=== PATIENT | female | born 1960 | race Caucasian/White ===

== ENCOUNTER 2016-10-29 15:57 | Observation (INO) | payer SELFPAY ==
[2016-10-29 16:02] VITALS: BMI 39.4
[2016-10-29] MEDS ORDERED: Sodium Chloride 0.9% 500 ML IV STA (16:25)
[2016-10-29] MEDS ORDERED: Morphine 2 mg/ml ISec IVP STA ×2 (16:26→23:42)
--- NOTE | 2016-10-29 16:30 | ED PDOC ---
Arrival/HPI - General Historian: Patient - History of Present Illness Time/Duration: Other (3 days) Context: Home - General Chief Complaint: Back Pain Time Seen by Provider: 10/29/16 16:10 - History of Present Illness Narrative History of Present Illness (Text): 10/29/16 16:27 This 56 yo female with pmh htn, dm, presents to this ED c/o right upper back pain, that radiates to right lower back, and lower extremity, and radiates to right neck, and head x 3 days. Patient denies cp, sob, palpitation, diplopia, dysarthria, cms, dizziness, weakness, /GI incontinence, saddle anesthesia, urinary retention, urinary symptoms, hematuria, vaginal bleeding, vaginal discharge, paresthesias, or abnormal gait. (Wilmar Rubio) Past Medical History - Provider Review Nursing Documentation Reviewed: Yes - Infectious Disease Hx of Infectious Diseases: None - Cardiac Hx Cardiac Disorders: No Hx Hypertension: Yes - Pulmonary Hx Respiratory Disorders: No - Neurological Hx Neurological Disorder: No - HEENT Hx HEENT Disorder: No - Renal Hx Renal Disorder: No - Endocrine/Metabolic Hx Endocrine Disorders: No Hx Diabetes Mellitus Type 2: Yes - Hematological/Oncological Hx Blood Disorders: No - Integumentary Hx Dermatological Disorder: No - Musculoskeletal/Rheumatological Hx Musculoskeletal Disorders: No - Gastrointestinal Hx Gastrointestinal Disorders: Yes Hx Diverticulitis: Yes - Genitourinary/Gynecological Hx Genitourinary Disorders: No - Psychiatric Hx Psychophysiologic Disorder: No Hx Depression: No Hx Emotional Abuse: No Hx Physical Abuse: No Hx Substance Use: No - Surgical History Hx Hysterectomy: Yes (PARTIAL) - Anesthesia Hx Anesthesia: No - Suicidal Assessment Feels Threatened In Home Enviroment: No Family/Social History - Physician Review Nursing Documentation Reviewed: Yes Family/Social History: No Known Family HX Smoking Status: Never Smoked Hx Alcohol Use: No Hx Substance Use: No Allergies/Home Meds Allergies/Adverse Reactions: Allergies EGG Allergy (Verified 10/29/16 16:01) ANAPHYLAXIS Home Medications: Home Meds Medication Instructions Recorded Confirmed MetFORMIN [glucOPHAGE] 500 mg PO BID 10/29/16 10/29/16 Review of Systems - Review of Systems Constitutional: Normal. absent: Fatigue, Weight Change, Fevers Eyes: Normal ENT: Normal. absent: Sore Throat Respiratory: Normal. absent: SOB, Cough Cardiovascular: Normal. absent: Chest Pain, Palpitations, Edema, Calf Pain, Orthopnea, Syncope Gastrointestinal: Normal. absent: Abdominal Pain, Nausea, Vomiting Genitourinary Female: Normal. absent: Dysuria, Frequency, Hematuria, Vaginal Bleeding, Vaginal Discharge Musculoskeletal: Back Pain, Neck Pain, Myalgias Skin: Normal. absent: Rash, Pruritis, Skin Lesions Neurological: Headache. absent: Dizziness, Focal Weakness, Gait Changes, Speech Changes, Facial Droop, Disequilibrium Endocrine: Normal Hemo/Lymphatic: Normal Psychiatric: Normal Physical Exam Temperature: Afebrile Blood Pressure: Normal Pulse: Regular Respiratory Rate: Normal Appearance: Positive for: Well-Appearing, Non-Toxic, Comfortable Pain Distress: None Mental Status: Positive for: Alert and Oriented X 3 - Systems Exam Head: Present: Atraumatic, Normocephalic Pupils: Present: PERRL Extroacular Muscles: Present: EOMI. No: Entrapment Conjunctiva: Present: Normal Ears: Present: Normal, NORMAL TM, Normal Canal. No: Erythema, TM Bulging, Fluid , TM Perf Mouth: Present: Moist Mucous Membranes Pharnyx: Present: Normal. No: ERYTHEMA, EXUDATE, TONSILS ENLARGED Nose (External): Present: Atraumatic Nose (Internal): Present: Normal Inspection Neck: Present: Normal Range of Motion Respiratory/Chest: Present: Clear to Auscultation, Good Air Exchange, Tender to Palpation (See Back). No: Respiratory Distress, Accessory Muscle Use, Wheezes, Decreased Breath Sounds, Rales, Retracting, Rhonchi, Tachypneic Cardiovascular: Present: Regular Rate and Rhythm, Normal S1, S2. No: Murmurs Abdomen: Present: Normal Bowel Sounds. No: Tenderness, Distention, Peritoneal Signs, Rebound, Guarding Back: Present: Normal Inspection, Other (Mild tendernnes over right posterior upper back, lower back, and right sided neck on palpation. Pain is 100 % reproducible. Pain worsen with movement. No skin rash, swelling, or ecchymosis.). No: CVA Tenderness, Midline Tenderness, Paraspinal Tenderness, Pain with Leg Raise Upper Extremity: Present: Normal Inspection, Normal ROM, NORMAL PULSES, Neurovascularly Intact, Capillary Refill < 2s. No: Cyanosis, Edema Lower Extremity: Present: Normal Inspection, NORMAL PULSES, Normal ROM, Neurovascularly Intact, Capillary Refill < 2 s. No: Edema, CALF TENDERNESS, Cyanosis, Monae's Sign, Tenderness, Swelling, Erythema Neurological: Present: GCS=15, CN II-XII Intact, Speech Normal, Motor Func Grossly Intact, Normal Sensory Function, Normal Cerebellar Funct, Gait Normal Skin: Present: Warm, Dry, Normal Color. No: Rashes Psychiatric: Present: Alert, Oriented x 3 Vital Signs Temp Pulse Resp BP Pulse Ox 10/29/16 23:07 98.0 F 71 16 108/71 97 10/29/16 17:58 79 18 141/79 97 10/29/16 15:58 98.8 F 82 16 143/89 97 Medical Decision Making Re-evaluation Time: 23:48 Reassessment Condition: Re-examined, Improving,but remains with symptoms - Lab Interpretations I have reviewed the lab results: Yes Interpretation: No clinic. lab abnormalty ED Course and Treatment: I was available for consultation during PA evaluation. The chart was reviewed by me, and I agree with disposition. The documented history was done by the physician educational interpreter. The documented physical exam was done by the physician educational interpreter. The documented procedures were done by the physician educational interpreter. ( Daniel Oswald) 10/29/16 23:[address] Shante Rosas physician regarding intractable abdominal pain, and dilated common bile duct found on imaging. patient has a pmh htn, and dm. He agrees with plan for observation (Wilmar Rubio) - Lab Interpretations Lab Results: 10/29/16 17:20 10/29/16 17:20 Lab Results 10/29/16 21:00: Urine Color Yellow, Urine Appearance Clear, Urine pH 6.5, Ur Specific [place] <= 1.005, Urine Protein Negative, Urine Glucose (UA) Negative, Urine Ketones Negative, Urine Blood Negative, Urine Nitrate Negative, Urine Bilirubin Negative, Urine Urobilinogen 0.2, Ur Leukocyte Esterase Negative 10/29/16 17:20: Sodium 139, Potassium 3.7, Chloride 100, Carbon Dioxide 30, Anion Gap 13, BUN 10, Creatinine 0.8, Est GFR ( Amer) > 60, Est GFR (Non- Af Amer) > 60, Random Glucose 116 H, Calcium 9.3, Total Bilirubin 0.7, AST 35, ALT 41, Alkaline Phosphatase 87, Total Protein 8.1, Albumin 4.4, Globulin 3.7, Albumin/Globulin Ratio 1.2 10/29/16 17:20: WBC 7.1 D, RBC 4.37, Hgb 11.2 L, Hct 34.9 L, MCV 79.9 L, MCH 25.6, MCHC 32.1, RDW 15.2 H, Plt Count 223, MPV 9.5, Gran % 63.7, Lymph % (Auto ) 27.3, [place] % (Auto) 5.4, Eos % (Auto) 3.5, Baso % (Auto) 0.1, Gran # 4.50, Lymph # 1.9, [place] # 0.4, Eos # 0.3, Baso # 0.01 - RAD Interpretation Narrative RAD Interpretations (Text): 10/29/16 18:09 Accession No. : [id number] Patient Name / ID : AMBER CROSS / [id number] Exam Date : 10/29/2016 17:03:12 ( Approved ) Study Comment : Sex / Age : F / 56Y Creator : Jay Santiago MD Dictator : Jay Santiago MD Tar Leveler : [employer] Administrator : Jay Santiago MD Approver2 : Report Date : 10/29/2016 17:41:59 My Comment : HISTORY: Unspecified pain. Semi erect study 17:02. COMPARISON: 08/05/2015. FINDINGS: LUNGS: No active pulmonary disease. PLEURA: No significant pleural effusion identified, no pneumothorax apparent. CARDIOVASCULAR: No radiographic findings to suggest acute or significant cardiovascular disease. OSSEOUS STRUCTURES: No significant abnormalities. VISUALIZED UPPER ABDOMEN: Normal. OTHER FINDINGS: None. IMPRESSION: No active disease. No significant interval change compared to the prior examination(s). 10/29/16 20:44 [facility] FINDINGS: Artifacts: Motion artifact degrades image quality. Heart, aorta and Pulmonary arteries: Heart size is accentuated by low volumes. There is no pericardial effusion. There is no aneurysm or dissection. There is perfusion of the 3 arch vessels. There are no central pulmonary. Allowing for patient motion, no peripheral emboli are identified. Lungs and pleural spaces: Trachea and main bronchi are patent. There is pleural thickening at the lung apices. There is a 2.5 mm peripheral right upper lobe nodule. There is dependent atelectasis at the lung bases. There is minimal scarring at the lung bases. There is no lobar or segmental consolidation. There is symmetric groundglass opacities. There are no effusions Mediastinum: Esophagus is unremarkable. There is a small hiatal hernia. There are no pathologically enlarged mediastinal or hilar nodes. Thyroid: Thyroid is only partially imaged. Bones/joints: There are degenerative changes in the osseus structures. Soft tissues: unremarkable Upper abdomen: Refer to following report for abdominal findings IMPRESSION: No aneurysm, dissection or pulmonary embolus; indeterminate 2.5 mm right upper lobe nodule Footer: As per Fleischner Society guidelines for follow-up and management of pulmonary nodules: For patients at low risk (minimal or absent history of smoking and of other known risk factors), no follow-up needed. For patient at high risk (history of smoking or of other known risk factors), recommend follow-up chest CT at 12 months; if unchanged, no further follow-up needed. EXAM: CT Abdomen and Pelvis With Intravenous Contrast FINDINGS: Lower thorax: Refer to prior report for chest findings ABDOMEN: Liver: There is fatty infiltration of the liver. Gallbladder and bile ducts: Gallbladder is partially distended. There may be small stones. There is prominence of the common duct. Pancreas: unremarkable Spleen: unremarkable Adrenals: unremarkable Kidneys and ureters: unremarkable Stomach and bowel: Stomach is partially distended. Rotation is normal. Small bowel is mildly distended with fluid and air. There is no obstruction. Terminal ileum is unremarkable. Appendix is unremarkable. There is moderate stool in the colon. There is scattered diverticulosis. Appendix: See stomach and bowel PELVIS: Bladder: unremarkable Reproductive: Uterus is absent. There are no adnexal masses. ABDOMEN and PELVIS: Intraperitoneal space: There is no free air or free fluid. Bones/joints: There are degenerative changes in the osseus structures. Soft tissues: There is a small fat containing umbilical hernia. Vasculature: Abdominal aorta is normal in caliber. There are occasional atherosclerotic calcifications. There is no aneurysm or dissection. There is perfusion of all major abdominal aortic branches. There is perfusion of internal and external iliac arteries. There are calcified phleboliths. Lymph nodes: There is shotty adenopathy. IMPRESSION: Fatty liver; possible gallstones; no CT findings of appendicitis or diverticulitis Additional findings as described above. FINDINGS: Liver: There is increased echogenicity to the liver. There is hepatopedal flow in the main portal vein. Gallbladder: Gallbladder is distended with no stones, sludge or wall thickening. Common bile duct: Common bile duct measures approximately 8.7 mm in maximal diameter Pancreas: Pancreas is partially obscured by bowel gas. Visualized portion is unremarkable. Kidneys: Kidneys are unremarkable. Spleen: Spleen is unremarkable. Aorta: Visualized portions of the aorta and inferior vena cava are unremarkable. Inferior vena cava: See above. IMPRESSION: Fatty liver; no gallstones; mildly prominent common duct Patient was not tender over the gallbladder Thank you for allowing us to participate in the care of your patient. Dictated and Authenticated by: Elise Marroquin MD 10/29/2016 10:54 PM Eastern Time ([place] & [place]) (Wilmar Rubio) Radiology Orders: 10/29/16 16:26 CHEST PORTABLE [RAD] Stat 10/29/16 17:01 ANGIOGRAPHY DISECTION PROTOCOL [CT] Stat 10/29/16 21:05 ABDOMEN COMPLETE [US] Stat - Medication Orders Current Medication Orders: Discontinued Medications Sodium Chloride (Sodium Chloride 0.9%) 500 mls @ 999 mls/hr IV .Q31M STA Stop: 10/29/16 16:55 Last Admin: 10/29/16 17:20 Dose: 999 mls/hr Iohexol (Omnipaque 300 100 Ml) Confirm Administered Dose 100 ml IJ .STK-MED ONE Stop: 10/29/16 19:03 Morphine Sulfate (Morphine) 2 mg IVP STAT STA Stop: 10/29/16 16:27 Last Admin: 10/29/16 17:20 Dose: 2 mg Morphine Sulfate (Morphine) 2 mg IVP STAT STA Stop: 10/29/16 23:43 Ondansetron HCl (Zofran Inj) 4 mg IVP STAT STA Stop: 10/29/16 16:28 Last Admin: 10/29/16 17:20 Dose: 4 mg Disposition/Present on Arrival - Present on Arrival Any Indicators Present on Arrival: No History of DVT/PE: No History of Uncontrolled Diabetes: No Urinary Catheter: No History of Decub. Ulcer: No History Surgical Site Infection Following: None - Disposition Have Diagnosis and Disposition been Completed?: Yes Disposition Time: 23:46 Patient Plan: Admission - Disposition Diagnosis: Common bile duct dilatation, Intractable abdominal pain Disposition: HOSPITALIZED Condition: STABLE Referrals: Jossy Gannon APN-C [Primary Care Provider] - Follow up with primary
[2016-10-29 17:25] LABS: ADD MANUAL DIFF? NO
[2016-10-29 17:28] LABS: BASO # 0.01 K/mm3 (0.0-2.0); BASO % 0.1 % (0.0-3.0); EOS # 0.3 (0.0-0.7); EOS % 3.5 % (1.5-5.0); GRAN % 63.7 % (50.0-68.0); HEMATOCRIT 34.9 % (36.0-48.0); LYMPH # 1.9 (1.2-3.4); LYMPH % 27.3 % (22.0-35.0); MEAN CELL VOLUME 79.9 fL (80.0-105.0); MEAN CORPUSCULAR HEMOGLOBIN 25.6 pg (25.0-35.0); MEAN CORPUSCULAR HGB CONC 32.1 g/dl (31.0-37.0); MEAN PLATELET VOLUME 9.5 fl (7.0-11.0); MONO # 0.4 (0.1-0.6); MONO % 5.4 % (1.0-6.0); PLATELET COUNT 223 10^3/uL (120.0-450.0); RED CELL DISTRIBUTION WIDTH 15.2 % (11.5-14.5); WHITE BLOOD COUNT 7.1 10^3/ul (4.5-11.0)
[2016-10-29 17:43] LABS: ALB/GLOB RATIO 1.2 (1.1-1.8); ALKALINE PHOSPHATASE 87 U/L (38-133); ALT/SGPT 41 U/L (7-56); AST/SGOT 35 U/L (15-39); BILIRUBIN,TOTAL 0.7 mg/dL (0.2-1.3); BLOOD UREA NITROGEN 10 mg/dL (7-21); CALCIUM 9.3 mg/dL (8.4-10.5); CARBON DIOXIDE 30 mmol/L (21-33); CHLORIDE 100 mmol/L (98-107); GFR AFRICAN-AMERICAN > 60; GLUCOSE,RANDOM 116 mg/dL (70-110); POTASSIUM 3.7 mmol/L (3.6-5.0); SODIUM 139 mmol/L (132-148); TOTAL PROTEIN 8.1 g/dL (5.8-8.3)
--- NOTE | 2016-10-29 17:43 | RAD ---
HISTORY: Unspecified pain. Semi erect study 17:02. COMPARISON: 08/05/2015. FINDINGS: LUNGS: No active pulmonary disease. PLEURA: No significant pleural effusion identified, no pneumothorax apparent. CARDIOVASCULAR: No radiographic findings to suggest acute or significant cardiovascular disease. OSSEOUS STRUCTURES: No significant abnormalities. VISUALIZED UPPER ABDOMEN: Normal. OTHER FINDINGS: None. IMPRESSION: No active disease. No significant interval change compared to the prior examination(s).
[2016-10-29] MEDS ORDERED: Iohexol 300 100 ML IJ ONE (19:02)
--- NOTE | 2016-10-29 20:19 | CT ---
EXAM: CT Angiography Chest Without and With Intravenous Contrast CLINICAL HISTORY: 56 years old, female; Pain; Other: Rt C/O right sided shoulder pain; Prior surgery; Surgery type: Hysterectomy; Additional info: Right sided pain TECHNIQUE: Axial computed tomographic angiography images of the chest without and with intravenous contrast using pulmonary embolism protocol. This CT exam was performed using one or more of the following dose reduction techniques: automated exposure control, adjustment of the mA and/or kV according to patient size, and/or use of iterative reconstruction technique. MIP reconstructed images were created and reviewed. Coronal and sagittal reformatted images were created and reviewed. CONTRAST: 50 mL of omni 300 administered intravenously. COMPARISON: There are no prior studies for comparison. FINDINGS: Artifacts: Motion artifact degrades image quality. Heart, aorta and Pulmonary arteries: Heart size is accentuated by low volumes. There is no pericardial effusion. There is no aneurysm or dissection. There is perfusion of the 3 arch vessels. There are no central pulmonary. Allowing for patient motion, no peripheral emboli are identified. Lungs and pleural spaces: Trachea and main bronchi are patent. There is pleural thickening at the lung apices. There is a 2.5 mm peripheral right upper lobe nodule. There is dependent atelectasis at the lung bases. There is minimal scarring at the lung bases. There is no lobar or segmental consolidation. There is symmetric groundglass opacities. There are no effusions Mediastinum: Esophagus is unremarkable. There is a small hiatal hernia. There are no pathologically enlarged mediastinal or hilar nodes. Thyroid: Thyroid is only partially imaged. Bones/joints: There are degenerative changes in the osseus structures. Soft tissues: unremarkable Upper abdomen: Refer to following report for abdominal findings IMPRESSION: No aneurysm, dissection or pulmonary embolus; indeterminate 2.5 mm right upper lobe nodule Footer: As per Fleischner Society guidelines for follow-up and management of pulmonary nodules: For patients at low risk (minimal or absent history of smoking and of other known risk factors), no follow-up needed. For patient at high risk (history of smoking or of other known risk factors), recommend follow-up chest CT at 12 months; if unchanged, no further follow-up needed. EXAM: CT Abdomen and Pelvis With Intravenous Contrast CLINICAL HISTORY: 56 years old, female; Pain; Other: Rt C/O right sided shoulder pain; Prior surgery; Surgery type: Hysterectomy; Additional info: Right sided pain TECHNIQUE: Axial computed tomography images of the abdomen and pelvis with intravenous contrast. This CT exam was performed using one or more of the following dose reduction techniques: automated exposure control, adjustment of the mA and/or kV according to patient size, and/or use of iterative reconstruction technique. MIP reconstructed images were created and reviewed. Coronal and sagittal reformatted images were created and reviewed. CONTRAST: 50 mL of omni 300 administered intravenously. EXAM DATE/TIME: 10/29/2016 5:01 PM COMPARISON: There are no prior studies for comparison. FINDINGS: Lower thorax: Refer to prior report for chest findings ABDOMEN: Liver: There is fatty infiltration of the liver. Gallbladder and bile ducts: Gallbladder is partially distended. There may be small stones. There is prominence of the common duct. Pancreas: unremarkable Spleen: unremarkable Adrenals: unremarkable Kidneys and ureters: unremarkable Stomach and bowel: Stomach is partially distended. Rotation is normal. Small bowel is mildly distended with fluid and air. There is no obstruction. Terminal ileum is unremarkable. Appendix is unremarkable. There is moderate stool in the colon. There is scattered diverticulosis. Appendix: See stomach and bowel PELVIS: Bladder: unremarkable Reproductive: Uterus is absent. There are no adnexal masses. ABDOMEN and PELVIS: Intraperitoneal space: There is no free air or free fluid. Bones/joints: There are degenerative changes in the osseus structures. Soft tissues: There is a small fat containing umbilical hernia. Vasculature: Abdominal aorta is normal in caliber. There are occasional atherosclerotic calcifications. There is no aneurysm or dissection. There is perfusion of all major abdominal aortic branches. There is perfusion of internal and external iliac arteries. There are calcified phleboliths. Lymph nodes: There is shotty adenopathy. IMPRESSION: Fatty liver; possible gallstones; no CT findings of appendicitis or diverticulitis Additional findings as described above.
[2016-10-29 21:13] LABS: PH,URINE 6.5 (4.7-8.0); URINE BILIRUBIN NEGATIVE (NEGATIVE); URINE BLOOD NEGATIVE (NEGATIVE); URINE GLUCOSE (UA) NEGATIVE (NEGATIVE); URINE KETONE NEGATIVE (NEGATIVE); URINE LEUKOCYTE ESTERASE NEGATIVE Leu/uL (NEGATIVE); URINE PROTEIN NEGATIVE mg/dL (<30 mg/dL); URINE UROBILINOGEN 0.2 E.U./dL (<1 E.U./dL)
[2016-10-29 21:20] LABS: URINE APPEARANCE CLEAR (CLEAR); URINE COLOR YELLOW (YELLOW)
--- NOTE | 2016-10-29 22:55 | US ---
EXAM: US Abdomen Complete CLINICAL HISTORY: 56 years old, female; Pain; Abdominal pain; Generalized; Additional info: Dilated gb, and cbd R/O cholecystitis TECHNIQUE: Real-time ultrasound of the abdomen (complete) with image documentation. EXAM DATE/TIME: 10/29/2016 9:05 PM COMPARISON: CT - ABD PELVIS W/O PO OR IV CONT 06/25/2015 12:02:07 PM FINDINGS: Liver: There is increased echogenicity to the liver. There is hepatopedal flow in the main portal vein. Gallbladder: Gallbladder is distended with no stones, sludge or wall thickening. Common bile duct: Common bile duct measures approximately 8.7 mm in maximal diameter Pancreas: Pancreas is partially obscured by bowel gas. Visualized portion is unremarkable. Kidneys: Kidneys are unremarkable. Spleen: Spleen is unremarkable. Aorta: Visualized portions of the aorta and inferior vena cava are unremarkable. Inferior vena cava: See above. IMPRESSION: Fatty liver; no gallstones; mildly prominent common duct Patient was not tender over the gallbladder
[2016-10-29] MEDS ORDERED: Morphine 2 mg/ml ISec IVP PRN (23:51)
[2016-10-30] MEDS: Sodium Chloride 0.9% 1,000 ML IV SCH ×2 (00:26→09:29)
[2016-10-30 03:40] VITALS: RESP 20
--- NOTE | 2016-10-30 04:12 | CP.PCM.HP ---
<Amaury Guerrero - Last Filed: 10/30/16 06:01> History of Present Illness - History of Present Illness History of Present Illness: CC: "Stomach and back pain" HPI: Pt is a 56 y/o Female with a PMHx of Diabetes Mellitus and HTN who presented to the ED complaining of mid epigastric abdominal pain and right upper back pain for the past 5 days. Pt reports that the pain has been getting worse over the course of the week. She reports that she has never had this type of pain before. At the time of examination, pt reports that her pain has improved. Pt reports that she experienced some chills with the pain. Pt denies fever, chest pain, shortness of breath, nausea, and vomiting. PMHx:Diabetes Mellitus, HTN Home medications: Metformin 500 mg po bid Allergies: Egg Past Surgical Hx: Hysterectomy Social Hx: denies hx of tobacco, alcohol, drug use Family Hx: HTN, DM, [place] (father) Present on Admission - Present on Admission Any Indicators Present on Admission: No Review of Systems - Constitutional Constitutional: Chills. absent: Fever - EENT Eyes: absent: Blurred Vision, Diplopia Ears: absent: Dizziness - Cardiovascular Cardiovascular: absent: Chest Pain, Dyspnea, Edema - Respiratory Respiratory: absent: Cough, Dyspnea - Gastrointestinal Gastrointestinal: Abdominal Pain, Constipation, Nausea. absent: Diarrhea, Vomiting - Genitourinary Genitourinary: absent: Dysuria - Musculoskeletal Musculoskeletal: Back Pain. absent: Muscle Weakness - Neurological Neurological: absent: Abnormal Gait, Dizziness, Headaches - Psychiatric Psychiatric: absent: Anxiety Past Patient History - Infectious Disease Hx of Infectious Diseases: None - Past Social History Smoking Status: Never Smoked - CARDIAC Hx Cardiac Disorders: No Hx Hypertension: Yes - PULMONARY Hx Respiratory Disorders: No - NEUROLOGICAL Hx Neurological Disorder: No - HEENT Hx HEENT Problems: No - RENAL Hx Chronic Kidney Disease: No - ENDOCRINE/METABOLIC Hx Endocrine Disorders: No Hx Diabetes Mellitus Type 2: Yes - HEMATOLOGICAL/ONCOLOGICAL Hx Blood Disorders: No - INTEGUMENTARY Hx Dermatological Problems: No - MUSCULOSKELETAL/RHEUMATOLOGICAL Hx Musculoskeletal Disorders: No Hx Falls: No - GASTROINTESTINAL Hx Gastrointestinal Disorders: Yes Hx Diverticulitis: Yes - GENITOURINARY/GYNECOLOGICAL Hx Genitourinary Disorders: No - PSYCHIATRIC Hx Psychophysiologic Disorder: No Hx Depression: No Hx Emotional Abuse: No Hx Physical Abuse: No - SURGICAL HISTORY Hx Hysterectomy: Yes (PARTIAL) - ANESTHESIA Hx Anesthesia: No Meds Allergies/Adverse Reactions: Allergies Allergy/AdvReac Type Severity Reaction Status Date / Time EGG Allergy ANAPHYLAXIS Verified 10/29/16 16:01 Physical Exam - Constitutional Appears: No Acute Distress - Head Exam Head Exam: ATRAUMATIC, NORMOCEPHALIC - Eye Exam Eye Exam: EOMI, PERRL - ENT Exam ENT Exam: Mucous Membranes Moist. absent: Mucous Membranes Dry - Neck Exam Neck exam: Positive for: Full Rom. Negative for: Lymphadenopathy - Respiratory Exam Respiratory Exam: Clear to Auscultation Bilateral. absent: Rales, Rhonchi, Wheezes - Cardiovascular Exam Cardiovascular Exam: +S1, +S2. absent: Gallop, Rubs - GI/Abdominal Exam GI & Abdominal Exam: Normal Bowel Sounds, Soft. absent: Guarding, Rigid, Tenderness - Extremities Exam Extremities exam: Positive for: full ROM. Negative for: pedal edema - Neurological Exam Neurological exam: Alert, Oriented x3 - Psychiatric Exam Psychiatric exam: Normal Affect, Normal Mood - Skin Skin Exam: Normal Color, Warm Results - Vital Signs Recent Vital Signs: Last Vital Signs Temp 98.2 F 10/30/16 03:27 Pulse 67 10/30/16 03:27 Resp 20 10/30/16 03:27 BP 132/91 H 10/30/16 03:27 Pulse Ox 96 10/30/16 00:38 - Labs Result Diagrams: 10/29/16 17:20 10/29/16 17:20 Assessment & Plan - Assessment and Plan (Free Text) Assessment: Abdominal Pain: Abdominal ultrasound - fatty liver, no gallstone, mildly prominent common duct CXR - no active disease CT angio dissection protocol - no aneurysm or dissection, fatty liver, possible gallstones, no CT findings of appendicitis of diverticulitis (please see full report) GI, Dr. Kumar, consulted. Help appreciated. Morphine 2 mg IV q4h prn NS 125 cc/hr NPO Zofran 4 mg IV q4h prn Prophylactic Measures: GI: Protonix 40 mg IV qd DVT: SCDs, Lovenox 40 mg sc qd <Shante GAGE,Alok - Last Filed: 10/30/16 14:33> Results - Vital Signs Recent Vital Signs: Last Vital Signs Temp 98.2 F 10/30/16 08:00 Pulse 68 10/30/16 08:00 Resp 20 10/30/16 08:00 BP 106/64 10/30/16 08:00 Pulse Ox 98 10/30/16 08:00 - Labs Result Diagrams: 10/30/16 06:30 10/30/16 06:30 Labs: Laboratory Results - last 24 hr 10/30/16 10/30/16 10/30/16 06:30 06:30 06:30 WBC 6.1 RBC 3.87 Hgb 9.9 L Hct 31.2 L MCV 80.6 MCH 25.6 MCHC 31.7 RDW 15.5 H Plt Count 193 MPV 9.7 Gran % 65.0 Lymph % (Auto) 24.1 [place] % (Auto) 7.4 H Eos % (Auto) 3.3 Baso % (Auto) 0.2 Gran # 3.94 Lymph # 1.5 [place] # 0.5 Eos # 0.2 Baso # 0.01 APTT 27.6 Sodium 141 Potassium 3.9 Chloride 104 Carbon Dioxide 30 Anion Gap 11 BUN 11 Creatinine 0.7 Est GFR ( Amer) > 60 Est GFR (Non-Af Amer) > 60 Random Glucose 121 H Calcium 8.6 Phosphorus 4.5 Magnesium 1.7 Total Bilirubin 0.6 AST 26 ALT 38 Alkaline Phosphatase 71 Total Protein 6.6 Albumin 3.4 Globulin 3.2 Albumin/Globulin Ratio 1.1 Triglycerides 142 Cholesterol 152 LDL Cholesterol Direct 92 HDL Cholesterol 32 TSH 3rd Generation 10/30/16 06:30 WBC RBC Hgb Hct MCV MCH MCHC RDW Plt Count MPV Gran % Lymph % (Auto) [place] % (Auto) Eos % (Auto) Baso % (Auto) Gran # Lymph # [place] # Eos # Baso # APTT Sodium Potassium Chloride Carbon Dioxide Anion Gap BUN Creatinine Est GFR ( Amer) Est GFR (Non-Af Amer) Random Glucose Calcium Phosphorus Magnesium Total Bilirubin AST ALT Alkaline Phosphatase Total Protein Albumin Globulin Albumin/Globulin Ratio Triglycerides Cholesterol LDL Cholesterol Direct HDL Cholesterol TSH 3rd Generation 5.74 H Attending/Attestation - Attestation I have personally seen and examined this patient.: Yes I have fully participated in the care of the patient.: Yes I have reviewed all pertinent clinical information: Yes Notes (Text): 10/30/16 14:33 -I agree with the above H&P completed by the resident physician.
[2016-10-30 07:00] LABS: ADD MANUAL DIFF? NO
[2016-10-30 07:05] LABS: BASO # 0.01 K/mm3 (0.0-2.0); BASO % 0.2 % (0.0-3.0); EOS # 0.2 (0.0-0.7); EOS % 3.3 % (1.5-5.0); GRAN # 3.94 (1.4-6.5); HEMATOCRIT 31.2 % (36.0-48.0); LYMPH # 1.5 (1.2-3.4); LYMPH % 24.1 % (22.0-35.0); MEAN CELL VOLUME 80.6 fL (80.0-105.0); MEAN CORPUSCULAR HEMOGLOBIN 25.6 pg (25.0-35.0); MEAN CORPUSCULAR HGB CONC 31.7 g/dl (31.0-37.0); MEAN PLATELET VOLUME 9.7 fl (7.0-11.0); MONO # 0.5 (0.1-0.6); MONO % 7.4 % (1.0-6.0); PLATELET COUNT 193 10^3/uL (120.0-450.0); RED CELL DISTRIBUTION WIDTH 15.5 % (11.5-14.5); WHITE BLOOD COUNT 6.1 10^3/ul (4.5-11.0)
[2016-10-30 07:41] LABS: ALB/GLOB RATIO 1.1 (1.1-1.8); ALKALINE PHOSPHATASE 71 U/L (38-133); ALT/SGPT 38 U/L (7-56); AST/SGOT 26 U/L (15-39); BILIRUBIN,TOTAL 0.6 mg/dL (0.2-1.3); BLOOD UREA NITROGEN 11 mg/dL (7-21); CALCIUM 8.6 mg/dL (8.4-10.5); CARBON DIOXIDE 30 mmol/L (21-33); CHLORIDE 104 mmol/L (95-110); CHOLESTEROL 152 mg/dL (130-200); GFR AFRICAN-AMERICAN > 60; GLUCOSE,RANDOM 121 mg/dL (70-110); MAGNESIUM 1.7 mg/dL (1.7-2.2); PHOSPHOROUS 4.5 mg/dL (2.5-4.5); POTASSIUM 3.9 mmol/L (3.6-5.0); SODIUM 141 mmol/L (132-148); TOTAL PROTEIN 6.6 g/dL (5.8-8.3)
[2016-10-30] MEDS ORDERED: Albuterol-Ipratrop 3 mg / 0.5 (3 ml) UD IH PRN (09:41)
[2016-10-30] MEDS ORDERED: Enoxaparin 30 mg Syringe SC SCH (10:00)
[2016-10-30] MEDS ORDERED: Enoxaparin 40 mg Syringe SC SCH (10:00)
--- NOTE | 2016-10-30 14:29 | MRI ---
PROCEDURE: Magnetic Resonance Cholangiopancreatography HISTORY: CBD dilatation COMPARISON: Ultrasound 10/29/2016. TECHNIQUE: Multiplanar, multisequence MR images of the abdomen were obtained, including heavily T2 weighted MRCP images of the biliary system. Rotating maximum intensity projection images of the biliary system were generated. FINDINGS: MRCP: The common duct is mildly dilated measuring 8 mm. The common duct has a normal tapering appearance. No evidence of choledocholithiasis. No intrahepatic biliary ductal dilatation. LIVER: Unremarkable. GALLBLADDER: Unremarkable. SPLEEN: Unremarkable. PANCREAS: Unremarkable. ADRENALS: Unremarkable. KIDNEYS: Unremarkable. AORTA: No aneurysm. ASCITES: None. OTHER FINDINGS: None. IMPRESSION: Negative study
--- NOTE | 2016-10-30 15:12 | CP.PCM.DIS ---
<Zach Smyth - Last Filed: 10/30/16 14:59> Provider - Provider Date of Admission: 10/29/16 23:48 Attending physician: Dagoberto Aguila MD Primary care physician: Jossy LU Consults: GI Time Spent in preparation of Discharge (in minutes): 40 Hospital Course - Lab Results Lab Results: Most Recent Lab Values WBC 6.1 10^3/ul (4.5-11.0) 10/30/16 06:30 RBC 3.87 10^6/uL (3.5-6.1) 10/30/16 06:30 Hgb 9.9 gm/dL (12.0-16.0) L 10/30/16 06:30 Hct 31.2 % (36.0-48.0) L 10/30/16 06:30 MCV 80.6 fL (80.0-105.0) 10/30/16 06:30 MCH 25.6 pg (25.0-35.0) 10/30/16 06:30 MCHC 31.7 g/dl (31.0-37.0) 10/30/16 06:30 RDW 15.5 % (11.5-14.5) H 10/30/16 06:30 Plt Count 193 10^3/uL (120.0-450.0) 10/30/16 06:30 MPV 9.7 fl (7.0-11.0) 10/30/16 06:30 Gran % 65.0 % (50.0-68.0) 10/30/16 06:30 Lymph % (Auto) 24.1 % (22.0-35.0) 10/30/16 06:30 [place] % (Auto) 7.4 % (1.0-6.0) H 10/30/16 06:30 Eos % (Auto) 3.3 % (1.5-5.0) 10/30/16 06:30 Baso % (Auto) 0.2 % (0.0-3.0) 10/30/16 06:30 Gran # 3.94 (1.4-6.5) 10/30/16 06:30 Lymph # 1.5 (1.2-3.4) 10/30/16 06:30 [place] # 0.5 (0.1-0.6) 10/30/16 06:30 Eos # 0.2 (0.0-0.7) 10/30/16 06:30 Baso # 0.01 K/mm3 (0.0-2.0) 10/30/16 06:30 APTT 27.6 Seconds (23.7-30.8) 10/30/16 06:30 Sodium 141 mmol/L (132-148) 10/30/16 06:30 Potassium 3.9 mmol/L (3.6-5.0) 10/30/16 06:30 Chloride 104 mmol/L (95-110) 10/30/16 06:30 Carbon Dioxide 30 mmol/L (21-33) 10/30/16 06:30 Anion Gap 11 (10-20) 10/30/16 06:30 BUN 11 mg/dL (7-21) 10/30/16 06:30 Creatinine 0.7 mg/dL (0.5-1.4) 10/30/16 06:30 Est GFR ( Amer) > 60 10/30/16 06:30 Est GFR (Non-Af Amer) > 60 10/30/16 06:30 Random Glucose 121 mg/dL (70-110) H 10/30/16 06:30 Calcium 8.6 mg/dL (8.4-10.5) 10/30/16 06:30 Phosphorus 4.5 mg/dL (2.5-4.5) 10/30/16 06:30 Magnesium 1.7 mg/dL (1.7-2.2) 10/30/16 06:30 Total Bilirubin 0.6 mg/dL (0.2-1.3) 10/30/16 06:30 AST 26 U/L (15-39) 10/30/16 06:30 ALT 38 U/L (7-56) 10/30/16 06:30 Alkaline Phosphatase 71 U/L (38-133) 10/30/16 06:30 Total Protein 6.6 g/dL (5.8-8.3) 10/30/16 06:30 Albumin 3.4 g/dL (3.0-4.8) 10/30/16 06:30 Globulin 3.2 gm/dL 10/30/16 06:30 Albumin/Globulin Ratio 1.1 (1.1-1.8) 10/30/16 06:30 Triglycerides 142 mg/dL (35-160) 10/30/16 06:30 Cholesterol 152 mg/dL (130-200) 10/30/16 06:30 LDL Cholesterol Direct 92 mg/dL (0-129) 10/30/16 06:30 HDL Cholesterol 32 mg/dL (29-60) 10/30/16 06:30 TSH 3rd Generation 5.74 mIU/mL (0.46-4.68) H 10/30/16 06:30 Urine Color Yellow (YELLOW) 10/29/16 21:00 Urine Appearance Clear (CLEAR) 10/29/16 21:00 Urine pH 6.5 (4.7-8.0) 10/29/16 21:00 Ur Specific [place] <= 1.005 (1.005-1.035) 10/29/16 21:00 Urine Protein Negative mg/dL (<30 mg/dL) 10/29/16 21:00 Urine Glucose (UA) Negative mg/dL (NEGATIVE) 10/29/16 21:00 Urine Ketones Negative mg/dL (NEGATIVE) 10/29/16 21:00 Urine Blood Negative (NEGATIVE) 10/29/16 21:00 Urine Nitrate Negative (NEGATIVE) 10/29/16 21:00 Urine Bilirubin Negative (NEGATIVE) 10/29/16 21:00 Urine Urobilinogen 0.2 E.U./dL (<1 E.U./dL) 10/29/16 21:00 Ur Leukocyte Esterase Negative [place]/uL (NEGATIVE) 10/29/16 21:00 - Hospital Course Hospital Course: 56 F with a PMHx of Diabetes Mellitus and HTN who presented to the ED complaining of right upper back pain and mild abd pain for the past 5 days. In the ED basic lab work was done. lab work was mainly unremarkable. Mild anemia Hb of 9.9. Abd US showed fatty liver, no gallstones, mild prominent common duct. CT chest angio was negative for aneurysm dissection or PE indeterminate, RU lobe pulm nodule (as per [place] society guidelines if low risk no f/u needed, if high risk 12 month f/u. CT angio of abdomen showed fatty liver, possible stones, no CT finding of appendicitis, or diverticulitis. IV fluids were started along with pain control. Pt was admitted for back pain and CBD dilation. Gastroeneterology team was consulted. They recommended a MRCP which was negative. Pt is seen and examined at bedside. No acute events overnight. Pt states that her pain is well controlled. No complaints. Denies any trevino, dizziness, f/c, sob, cp, abd pain, n/v/d. Discharge Exam - Head Exam Head Exam: ATRAUMATIC, NORMOCEPHALIC - Eye Exam Eye Exam: EOMI, Normal appearance, PERRL Pupil Exam: NORMAL ACCOMODATION, PERRL - ENT Exam ENT Exam: Mucous Membranes Moist - Respiratory Exam Respiratory Exam: Clear to PA & Lateral. absent: Rales, Wheezes - Cardiovascular Exam Cardiovascular Exam: REGULAR RHYTHM, RRR, +S1, +S2 - GI/Abdominal Exam GI & Abdominal Exam: Normal Bowel Sounds, Soft. absent: Distended, Tenderness - Neurological Exam Neurological exam: Alert, CN II-XII Intact, Oriented x3 - Psychiatric Exam Psychiatric exam: Normal Affect, Normal Mood - Skin Skin Exam: Dry, Intact, Normal Color, Warm Discharge Plan - Discharge Medications Prescriptions: Albuterol 0.083% [Albuterol 0.083% Inhal Kiersten (2.5 mg/3 ml) UD] 2.5 mg IH Q6H PRN #1 neb PRN Reason: Shortness Of Breath Docusate Sodium [Colace] 100 mg PO BID #20 capsule metFORMIN [glucOPHAGE] 500 mg PO BID #60 tab Hydrochlorothiazide [Microzide] 12.5 mg PO BID #60 cap Famotidine [Pepcid] 20 mg PO DAILY #30 tab Budesonide/Formoterol Fumarate [Symbicort] 1 aer IH BID #1 aer - Follow Up Plan Condition: STABLE Disposition: HOME/ ROUTINE Instructions: Back Pain (GEN) Additional Instructions: Follow up with your primary doctor with in 1 week and f/u regarding anemia. Follow up with your education program manager in 1 year regarding incedental finding of 2.5mm lung nodule. If any of your symptoms recur come back to the ED. Take your medications as prescribed. Follow up with GI clinic for outpatient EUS. Follow up with Dr. Brantley. Referrals: Everardo Kumar MD [Medical Doctor] - Jossy Gannon APN-C [Primary Care Provider] - <Dagoberto Aguila - Last Filed: 10/31/16 13:34> Provider - Provider Date of Admission: 10/29/16 23:48 Attending physician: Dagoberto Aguila MD Primary care physician: Jossy Gannon [facility] Course - Lab Results Lab Results: Most Recent Lab Values WBC 6.1 10^3/ul (4.5-11.0) 10/30/16 06:30 RBC 3.87 10^6/uL (3.5-6.1) 10/30/16 06:30 Hgb 9.9 gm/dL (12.0-16.0) L 10/30/16 06:30 Hct 31.2 % (36.0-48.0) L 10/30/16 06:30 MCV 80.6 fL (80.0-105.0) 10/30/16 06:30 MCH 25.6 pg (25.0-35.0) 10/30/16 06:30 MCHC 31.7 g/dl (31.0-37.0) 10/30/16 06:30 RDW 15.5 % (11.5-14.5) H 10/30/16 06:30 Plt Count 193 10^3/uL (120.0-450.0) 10/30/16 06:30 MPV 9.7 fl (7.0-11.0) 10/30/16 06:30 Gran % 65.0 % (50.0-68.0) 10/30/16 06:30 Lymph % (Auto) 24.1 % (22.0-35.0) 10/30/16 06:30 [place] % (Auto) 7.4 % (1.0-6.0) H 10/30/16 06:30 Eos % (Auto) 3.3 % (1.5-5.0) 10/30/16 06:30 Baso % (Auto) 0.2 % (0.0-3.0) 10/30/16 06:30 Gran # 3.94 (1.4-6.5) 10/30/16 06:30 Lymph # 1.5 (1.2-3.4) 10/30/16 06:30 [place] # 0.5 (0.1-0.6) 10/30/16 06:30 Eos # 0.2 (0.0-0.7) 10/30/16 06:30 Baso # 0.01 K/mm3 (0.0-2.0) 10/30/16 06:30 APTT 27.6 Seconds (23.7-30.8) 10/30/16 06:30 Sodium 141 mmol/L (132-148) 10/30/16 06:30 Potassium 3.9 mmol/L (3.6-5.0) 10/30/16 06:30 Chloride 104 mmol/L (95-110) 10/30/16 06:30 Carbon Dioxide 30 mmol/L (21-33) 10/30/16 06:30 Anion Gap 11 (10-20) 10/30/16 06:30 BUN 11 mg/dL (7-21) 10/30/16 06:30 Creatinine 0.7 mg/dL (0.5-1.4) 10/30/16 06:30 Est GFR ( Amer) > 60 10/30/16 06:30 Est GFR (Non-Af Amer) > 60 10/30/16 06:30 Random Glucose 121 mg/dL (70-110) H 10/30/16 06:30 Calcium 8.6 mg/dL (8.4-10.5) 10/30/16 06:30 Phosphorus 4.5 mg/dL (2.5-4.5) 10/30/16 06:30 Magnesium 1.7 mg/dL (1.7-2.2) 10/30/16 06:30 Total Bilirubin 0.6 mg/dL (0.2-1.3) 10/30/16 06:30 AST 26 U/L (15-39) 10/30/16 06:30 ALT 38 U/L (7-56) 10/30/16 06:30 Alkaline Phosphatase 71 U/L (38-133) 10/30/16 06:30 Total Protein 6.6 g/dL (5.8-8.3) 10/30/16 06:30 Albumin 3.4 g/dL (3.0-4.8) 10/30/16 06:30 Globulin 3.2 gm/dL 10/30/16 06:30 Albumin/Globulin Ratio 1.1 (1.1-1.8) 10/30/16 06:30 Triglycerides 142 mg/dL (35-160) 10/30/16 06:30 Cholesterol 152 mg/dL (130-200) 10/30/16 06:30 LDL Cholesterol Direct 92 mg/dL (0-129) 10/30/16 06:30 HDL Cholesterol 32 mg/dL (29-60) 10/30/16 06:30 TSH 3rd Generation 5.74 mIU/mL (0.46-4.68) H 10/30/16 06:30 Urine Color Yellow (YELLOW) 10/29/16 21:00 Urine Appearance Clear (CLEAR) 10/29/16 21:00 Urine pH 6.5 (4.7-8.0) 10/29/16 21:00 Ur Specific [place] <= 1.005 (1.005-1.035) 10/29/16 21:00 Urine Protein Negative mg/dL (<30 mg/dL) 10/29/16 21:00 Urine Glucose (UA) Negative mg/dL (NEGATIVE) 10/29/16 21:00 Urine Ketones Negative mg/dL (NEGATIVE) 10/29/16 21:00 Urine Blood Negative (NEGATIVE) 10/29/16 21:00 Urine Nitrate Negative (NEGATIVE) 10/29/16 21:00 Urine Bilirubin Negative (NEGATIVE) 10/29/16 21:00 Urine Urobilinogen 0.2 E.U./dL (<1 E.U./dL) 10/29/16 21:00 Ur Leukocyte Esterase Negative [place]/uL (NEGATIVE) 10/29/16 21:00 Attending/Attestation - Attestation I have personally seen and examined this patient.: Yes I have fully participated in the care of the patient.: Yes I have reviewed all pertinent clinical information, including history, physical exam and plan: Yes Notes (Text): 10/31/16 13:32 Attending note; Patient seen and examined with resident. Patient is a 56-year-old female with a past medical history of hypertension, diabetes, obesity, chronic arthritis is admitted with right back scapular pain. CT abdomen and pelvis showed dilated CBD. MRCP is negative. Chest x-ray is negative. Patient is afebrile and nontoxic. No leukocytosis. Anemia; chronic. continue iron pills. GI evaluation appreciated. History of constipation; treated with max citrate. Colace prescription given. Patient will be discharged home with NSAIDs for a few days. Continue therapy at home. Follow-up with [facility]. Diagnosis; Musculoskeletal pain Dilated CBD Anemia Shoulder arthritis Constipation
--- NOTE | 2016-10-30 15:51 | CON ---
DATE: 10/30/2016 Seen and examined at the bedside earlier today. The chart was reviewed. REQUEST FOR CONSULT: Common bile duct dilatation. HISTORY OF PRESENT ILLNESS: This is a 56-year-old obese female with a past medical history of diabet es mellitus and hypertension, came to the Emergency Room with complaints of epigastric discomfort and right upper back pain, although the patient states that she starts with right upper back pain that r adiates to the right upper quadrant. She denies any nausea, vomiting, fever or chills. No reports o f any shortness of breath or chest pain. The patient denies any hematemesis or any bleeding per rect um. Occasional constipation. The patient may take Metamucil, but does not note any changes in her b owel habits. She reports having an endoscopy and colonoscopy about 5 years ago. No acute findings. On admission, she went for a CT angio and this showed shotty lymph nodes and moderate amount of stoo l in the colon, otherwise it was negative for any embolism. She also did go for abdominal ultrasound , which showed distended gallbladder, no stones or sludge. The common bile duct measured 8.7 with mi ldly prominent common duct. PAST MEDICAL HISTORY: As stated above is hypertension, diabetes, obesity. PAST SURGICAL HISTORY: Had a hysterectomy. Last endoscopy colon was 5 years ago, showed diverticulo sis. No polyps. ALLERGIES: EGG. SOCIAL HISTORY: Denies tobacco, ETOH, or drug use. MEDICATIONS: Reviewed as per MAR. REVIEW OF SYSTEMS: Systems reviewed with positive findings, see HPI. VITAL SIGNS: Temperature is 98.2, blood pressure is 106/64, pulse 68, respirations 20, 98 on room ai r. LABORATORY WORK: WBC is 6.1, hemoglobin is 9.9 and hematocrit is 31.2, platelets are 193. PTT 27.6. Sodium 141, K is 3.9, BUN is 11, creatinine is 0.7, mag 1.7. LFTs within normal limits. Urinalysis is negative for leukoesterase, blood, ketones and protein. Chest x-ray was done, which showed no ac tive disease. CT angio showed fatty liver, possible gallstones, no CT findings of appendicitis or di verticulitis. Moderate stool in the colon and shotty lymph nodes. There is also one for abdominal u ltrasound, which shows fatty liver, no gallstones, mildly prominent common bile duct 8.7 mm. Pancrea s is partially obscured by bowel gas. Visualized portion is unremarkable. Liver, increased echogen[place] city. There is hepatopedal flow in the main portal vein. PHYSICAL EXAMINATION: HEENT: Sclerae are anicteric. NECK: Supple. CARDIAC: S1, S2. LUNGS: Sound clear. ABDOMEN: With bowel sounds, soft and nontender. No CVA tenderness. No rebound, guarding, or organo megaly. EXTREMITIES: Positive pedal pulses, no edema. NEUROLOGIC: Awake, alert, and oriented. ASSESSMENT: This is a 56-year-old female with a past medical history of diabetes mellitus, hypertens ion, came with complaints of right upper back pain that radiates to the right upper quadrant epigastr ic area. The patient had tests done, which shows status post CT angio negative for pulmonary embolis m, shows stool in the colon, went for abdominal ultrasound showing a mildly dilated common bile duct at 8.7 mm. Will rule out any common bile duct stones or any malignancy. The patient's LFTs are with in normal limits. Also found fatty liver. PLAN: The patient is going for an MRCP. Continue diet as tolerated. Continue GI prophylaxis, pain management, on DVT prophylaxis, Lovenox. If patient continues with epigastric discomfort, may benefi t from elective outpatient endoscopy. Thank you for this consult and for allowing us to participate in your patient's care. We will make f urther recommendations based upon patient's clinical course and review of MRCP. The patient was seen and case discussed with Dr. Kumar. Nelida LU cc: [id number] TT: 10/30/2016 15:51:10 Confirmation # [id number] Dictation # [id number] nadira
[2016-10-30 16:45] VITALS: BP 105/61; PULSE 77; TEMP 98.1; O2SAT 99
[2016-10-30] MEDS ORDERED: Magnesium Citrate Oral SOL (300 ml) PO ONE (17:55)
== END 2016-10-30 19:05 | disposition home or self-care (01) ==
LOC: ED 15:57 → ERH 23:48 → 5RSO 10-30 01:05
PROVIDERS: ADMIT Internal Medicine; ATTEND Internal Medicine
DX: K83.8 Other specified diseases of biliary tract (principal); M79.1 Myalgia; D64.9 Anemia, unspecified; M19.019 Primary osteoarthritis, unspecified shoulder; K59.00 Constipation, unspecified; I10 Essential (primary) hypertension; K76.0 Fatty (change of) liver, not elsewhere classified; E11.9 Type 2 diabetes mellitus without complications; Z79.84 Long term (current) use of oral hypoglycemic drugs; E66.9 Obesity, unspecified; Z68.39 Body mass index [BMI] 39.0-39.9, adult
CPT/HCPCS: 36415; 71010; 71275; 74175; 74181; 76700; 80053; 80061; 81003; 83735; 84100; 84443; 85025; 85730; 96361; 96372; 96374; 96375; 96376; 99284; C9113; G0378; J1650; J2270; J2405; J7040; Q9967

== ENCOUNTER 2017-08-31 06:33 | Inpatient (IN) | payer MEDICAID, SELFPAY ==
[2017-08-31] MEDS ORDERED: Morphine 4 mg/ml ISec IVP STA (06:54)
[2017-08-31] MEDS ORDERED: Sodium Chloride 0.9% 1,000 ML IV STA ×2 (06:54→07:15)
--- NOTE | 2017-08-31 07:07 | ED PDOC ---
Arrival/HPI - General Chief Complaint: Abdominal Pain Time Seen by Provider: 08/31/17 06:46 Historian: Patient - History of Present Illness Narrative History of Present Illness (Text): 08/31/17 06:57 57F w/ pmhx significant for diverticulitis, HTN, presents to [facility] w/ diffuse sharp and crampy abdominal pain that is localized to the left lower quadrant. Had similar episode of pain one year ago. Pain is associated w/ nausea, non- bloody, non-bilious vomiting, loose stools. Passed flatus earlier today. States difficulty w/ urination. Denies current: Fevers, chills, chest pain, shortness of breath, numbness/ tingling in extremities, changes in vision, headaches PMH: HTN, borderline diabetes, hx of dysmenorrhea PSH: laparosopic partial hysterectomy in 2001 ALL: Egg Time/Duration: < week Severity Level: 8 Past Medical History - Provider Review Nursing Documentation Reviewed: Yes - Travel History Have you recently traveled outside [place] w/in the past 3 mons?: No - Infectious Disease Hx of Infectious Diseases: None - Cardiac Hx Cardiac Disorders: No Hx Hypertension: Yes - Pulmonary Hx Respiratory Disorders: No - Neurological Hx Neurological Disorder: No - HEENT Hx HEENT Disorder: No - Renal Hx Renal Disorder: No - Endocrine/Metabolic Hx Endocrine Disorders: No Hx Diabetes Mellitus Type 2: Yes - Hematological/Oncological Hx Blood Disorders: No - Integumentary Hx Dermatological Disorder: No - Musculoskeletal/Rheumatological Hx Musculoskeletal Disorders: No Hx Falls: No - Gastrointestinal Hx Gastrointestinal Disorders: Yes Hx Diverticulitis: Yes - Genitourinary/Gynecological Hx Genitourinary Disorders: No - Psychiatric Hx Psychophysiologic Disorder: No Hx Depression: No Hx Emotional Abuse: No Hx Physical Abuse: No Hx Substance Use: No - Surgical History Hx Hysterectomy: Yes (PARTIAL) - Anesthesia Hx Anesthesia: No - Suicidal Assessment Feels Threatened In Home Enviroment: No Family/Social History - Physician Review Nursing Documentation Reviewed: Yes Family/Social History: Hypertension Smoking Status: Never Smoked Hx Alcohol Use: No Hx Substance Use: No Allergies/Home Meds Allergies/Adverse Reactions: Allergies EGG Allergy (Verified 08/31/17 06:44) ANAPHYLAXIS Home Medications: Home Meds Medication Instructions Recorded Confirmed Multivitamin [Multivitamins] 1 each PO DAILY 08/31/17 08/31/17 metFORMIN [glucOPHAGE] 500 mg PO DAILY 08/31/17 08/31/17 Review of Systems - Physician Review All systems were reviewed & negative as marked: Yes - Review of Systems Constitutional: absent: Fevers Eyes: Normal ENT: Normal Respiratory: Normal Cardiovascular: Normal Gastrointestinal: Abdominal Pain, Stool Changes. absent: Diarrhea Genitourinary Female: Urine Output Changes Musculoskeletal: Normal Skin: Normal Physical Exam Vital Signs Reviewed: Yes Vital Signs Temp Pulse Resp BP Pulse Ox 08/31/17 06:44 98.2 F 69 18 169/103 H 99 Temperature: Afebrile Blood Pressure: Hypertensive Pulse: Regular Respiratory Rate: Normal Appearance: Positive for: Well-Appearing, Non-Toxic, Uncomfortable Pain Distress: Mild Mental Status: Positive for: Alert and Oriented X 3 - Systems Exam Head: Present: Atraumatic, Normocephalic Pupils: Present: PERRL Extroacular Muscles: Present: EOMI Conjunctiva: Present: Normal Respiratory/Chest: Present: Clear to Auscultation, Good Air Exchange. No: Respiratory Distress, Accessory Muscle Use Cardiovascular: Present: Regular Rate and Rhythm, Normal S1, S2. No: Murmurs Abdomen: Present: Tenderness, Other (soft, tender to palpation in LLQ). No: Distention, Normal Bowel Sounds, Peritoneal Signs Upper Extremity: Present: Normal Inspection Lower Extremity: Present: Normal Inspection Neurological: Present: GCS=15, Speech Normal Skin: Present: Warm Psychiatric: Present: Alert, Oriented x 3 Medical Decision Making ED Course and Treatment: 08/31/17 07:11 CBC/CMP Coags EKG/CXR CT scan w/ IV contrast discussed case and signed out to Dr. Reyes Emergency medicine attending - Medication Orders Current Medication Orders: Sodium Chloride (Sodium Chloride 0.9%) 1,000 mls @ 1,000 mls/hr IV .Q1H STA Stop: 08/31/17 07:53 Morphine Sulfate (Morphine) 4 mg IVP STAT STA Stop: 08/31/17 06:55 Ondansetron HCl (Zofran Inj) 4 mg IVP STAT STA Stop: 08/31/17 06:55 Disposition/Present on Arrival - Present on Arrival Any Indicators Present on Arrival: No History of DVT/PE: No History of Uncontrolled Diabetes: No Urinary Catheter: No History of Decub. Ulcer: No History Surgical Site Infection Following: None - Disposition Have Diagnosis and Disposition been Completed?: Yes Diagnosis: Diverticulitis Disposition Time: 07:12 Condition: STABLE
[2017-08-31 07:21] LABS: BASO # 0.01 K/mm3 (0.0-2.0); BASO % 0.1 % (0.0-3.0); EOS # 0.1 (0.0-0.7); GRAN # 8.31 (1.4-6.5); GRAN % 80.7 % (50.0-68.0); HEMOGLOBIN 11.1 g/dL (12.0-16.0); LYMPH # 1.4 (1.2-3.4); LYMPH % 13.6 % (22.0-35.0); MEAN CELL VOLUME 80.6 fl (80.0-105.0); MEAN CORPUSCULAR HEMOGLOBIN 25.6 pg (25.0-35.0); MEAN CORPUSCULAR HGB CONC 31.8 g/dl (31.0-37.0); MEAN PLATELET VOLUME 10.1 fl (7.0-11.0); MONO # 0.5 (0.1-0.6); MONO % 4.6 % (1.0-6.0); RBC 4.33 10^6/uL (3.5-6.1); RED CELL DISTRIBUTION WIDTH 15.1 % (11.5-14.5); WHITE BLOOD COUNT 10.3 10^3/ul (4.5-11.0)
[2017-08-31 07:23] LABS: ALB/GLOB RATIO 1.2 (1.1-1.8); ALT/SGPT 27 U/L (7-56); AST/SGOT 20 U/L (14-36); BLOOD UREA NITROGEN 9 mg/dL (7-21); CALCIUM 9.5 mg/dL (8.4-10.5); GFR AFRICAN-AMERICAN > 60; GFR NON-AFRICAN AMERICAN > 60; LIPASE 98 U/L (23-300)
[2017-08-31 07:31] LABS: PROTHROMBIN TIME 12.3 SECONDS (9.4-12.5)
[2017-08-31 07:32] LABS: INR 1.07 (0.93-1.08); PARTIAL THROMBOPLASTIN TIME 29.2 Seconds (25.1-36.5)
--- NOTE | 2017-08-31 07:39 | ED PDOC ---
Physical Exam Vital Signs Temp Pulse Resp BP Pulse Ox 08/31/17 08:57 56 L 18 146/90 98 08/31/17 06:44 98.2 F 69 18 169/103 H 99 Medical Decision Making ED Course and Treatment: 08/31/17 07:00 Case signed out to me by Dr. Yadav. Patient is a 57 year old female, who presents to the emergency department complaining of diffused sharp and crampy abdominal pain localized at the left lower quadrant associated w/ nausea, non- bloody, vomiting, and loose stools. Currently pending CT abdomen and pelvis. 08/31/17 08:25 Chest X-ray: Creator : Forrest Harris MD COMPARISON: 10/29/2016 FINDINGS: LUNGS: No active pulmonary disease. PLEURA: Elevated right hemidiaphragm, nonspecific and unchanged from prior examination. CARDIOVASCULAR: Normal. OSSEOUS STRUCTURES: No significant abnormalities. VISUALIZED UPPER ABDOMEN: Normal. OTHER FINDINGS: None. IMPRESSION: No active disease. 08/31/17 09:10 CT abdomen and pelvis: Creator : Forrest Harris MD FINDINGS: LOWER THORAX: Unremarkable. LIVER: Unremarkable. No gross lesion or ductal dilatation. GALLBLADDER AND BILE DUCTS: Unremarkable. PANCREAS: Unremarkable. No gross lesion or ductal dilatation. SPLEEN: Unremarkable. ADRENALS: Unremarkable. No mass. KIDNEYS AND URETERS: Unremarkable. No hydronephrosis. No solid mass. VASCULATURE: Unremarkable. No aortic aneurysm. BOWEL: There is acute sigmoid diverticulitis without evidence of perisigmoid abscess or free air. There is focal mural thickening of the affected segment of sigmoid colon with hazy increased attenuation of the very sigmoidal fat. APPENDIX: Normal appendix. PERITONEUM: Unremarkable. No free fluid. No free air. LYMPH NODES: Shotty subcentimeter retroperitoneal and pelvic lymph nodes are noted, possibly reactive. BLADDER: There is mural thickening of the left superior bladder adjacent to the inflamed segment of sigmoid colon. REPRODUCTIVE: Status post hysterectomy BONES: No acute fracture. OTHER FINDINGS: None. IMPRESSION: Acute sigmoid diverticulitis without evidence of abscess. There is focal mural thickening of the left superior bladder adjacent to the inflamed sigmoid colon, likely a secondary process. No other significant abnormality. - Lab Interpretations Lab Results: 08/31/17 07:00 08/31/17 07:00 Lab Results 08/31/17 09:00: Urine Color Yellow, Urine Appearance Clear, Urine pH 6.5, Ur Specific [place] 1.010, Urine Protein Negative, Urine Glucose (UA) 250 H, Urine Ketones Negative, Urine Blood Negative, Urine Nitrate Negative, Urine Bilirubin Negative, Urine Urobilinogen 0.2, Ur Leukocyte Esterase Negative 08/31/17 07:00: Sodium 138, Potassium 3.5 L, Chloride 100, Carbon Dioxide 24, Anion Gap 16, BUN 9, Creatinine 0.6 L, Est GFR ( Amer) > 60, Est GFR (Non -Af Amer) > 60, Random Glucose 280 H, Calcium 9.5, Total Bilirubin 1.0, AST 20, ALT 27, Alkaline Phosphatase 94, Total Protein 7.4, Albumin 4.0, Globulin 3.4, Albumin/Globulin Ratio 1.2, Lipase 98 08/31/17 07:00: PT 12.3, INR 1.07, APTT 29.2 08/31/17 07:00: WBC 10.3 D, RBC 4.33, Hgb 11.1 L, Hct 34.9 L, MCV 80.6, MCH 25.6, MCHC 31.8, RDW 15.1 H, Plt Count 197, MPV 10.1, Gran % 80.7 H, Lymph % ( Auto) 13.6 L, [place] % (Auto) 4.6, Eos % (Auto) 1.0 L, Baso % (Auto) 0.1, Gran # 8.31 H, Lymph # (Auto) 1.4, [place] # (Auto) 0.5, Eos # (Auto) 0.1, Baso # (Auto) 0.01 - RAD Interpretation Radiology Orders: 08/31/17 07:13 ABD & PELVIS IV CONTRAST ONLY [CT] Stat CHEST PORTABLE [RAD] Stat - Medication Orders Current Medication Orders: Ciprofloxacin (Cipro 400mg/200ml Dsw) 400 mg in 200 mls @ 133.3 mls/hr IVPB STAT STA PRN Reason: Protocol Stop: 08/31/17 10:54 Metronidazole (Flagyl) 500 mg in 100 mls @ 100 mls/hr IVPB STAT STA PRN Reason: Protocol Stop: 08/31/17 10:24 Discontinued Medications Sodium Chloride (Sodium Chloride 0.9%) 1,000 mls @ 1,000 mls/hr IV .Q1H STA Stop: 08/31/17 07:53 Last Admin: 08/31/17 07:08 Dose: 1,000 mls/hr eMAR Start Stop Document 08/31/17 07:08 AB (Rec: 08/31/17 07:08 AB [id number]) Intravenous Solution Start Date 08/31/17 Start Time 07:08 End Date 08/31/17 End time 08:08 Total Infusion Time 60 Sodium Chloride (Sodium Chloride 0.9%) 1,000 mls @ 999 mls/hr IV .Q1H1M STA Stop: 08/31/17 08:15 Morphine Sulfate (Morphine) 4 mg IVP STAT STA Stop: 08/31/17 06:55 Last Admin: 08/31/17 07:08 Dose: 4 mg MAR Pain Assessment Document 08/31/17 07:08 AB (Rec: 08/31/17 07:09 AB [id number]) Pain Reassessment Is this a pain reassessment? Yes Sleep Is patient sleeping during reassessment? No Presence of Pain Presence of Pain Yes Pain Scale Used Pain Scale Used Numeric Location Pain Location Body Site Abdomen Description Description Constant Acceptable Level of Pain 8 Alleviating Factors Medication IVP Administration Document 08/31/17 07:08 AB (Rec: 08/31/17 07:09 AB [id number]) Charges for Administration # of IVP Administrations 1 Ondansetron HCl (Zofran Inj) 4 mg IVP STAT STA Stop: 08/31/17 06:55 Last Admin: 08/31/17 07:08 Dose: 4 mg IVP Administration Document 08/31/17 07:08 AB (Rec: 08/31/17 07:08 AB [id number]) Charges for Administration # of IVP Administrations 1 - Scribe Statement The provider has reviewed the documentation as recorded by the Scribe Kathy Barrett Provider Scribe Attestation: All medical record entries made by the Scribe were at my direction and personally dictated by me. I have reviewed the chart and agree that the record accurately reflects my personal performance of the history, physical exam, medical decision making, and the department course for this patient. I have also personally directed, reviewed, and agree with the discharge instructions and disposition. Disposition/Present on Arrival - Present on Arrival Any Indicators Present on Arrival: No History of DVT/PE: No History of Uncontrolled Diabetes: No Urinary Catheter: No History of Decub. Ulcer: No History Surgical Site Infection Following: None - Disposition Have Diagnosis and Disposition been Completed?: Yes Diagnosis: Diverticulitis Disposition: HOSPITALIZED Disposition Time: 09:18 Patient Plan: Admission Patient Problems: Current Active Problems Problem Status Onset Diverticulitis Acute Condition: STABLE Referrals: Jossy Gannon APN-C [Primary Care Provider] - Follow up with primary Forms: [facility] ([place]ican)
[2017-08-31] MEDS ORDERED: Iohexol 350 MG/100 ML VIAL ONE (07:49)
--- NOTE | 2017-08-31 08:22 | RAD ---
HISTORY: abd pain; Pre-op COMPARISON: 10/29/2016 FINDINGS: LUNGS: No active pulmonary disease. PLEURA: Elevated right hemidiaphragm, nonspecific and unchanged from prior examination. CARDIOVASCULAR: Normal. OSSEOUS STRUCTURES: No significant abnormalities. VISUALIZED UPPER ABDOMEN: Normal. OTHER FINDINGS: None. IMPRESSION: No active disease.
--- NOTE | 2017-08-31 09:12 | CT ---
PROCEDURE: CT Abdomen and Pelvis with contrast HISTORY: abd pain- diverticulitis COMPARISON: None. TECHNIQUE: Contrast dose: 100 mL Omnipaque 350 Radiation dose: Total exam DLP = 986.77 mGy-cm. This CT exam was performed using one or more of the following dose reduction techniques: Automated exposure control, adjustment of the mA and/or kV according to patient size, and/or use of iterative reconstruction technique. FINDINGS: LOWER THORAX: Unremarkable. LIVER: Unremarkable. No gross lesion or ductal dilatation. GALLBLADDER AND BILE DUCTS: Unremarkable. PANCREAS: Unremarkable. No gross lesion or ductal dilatation. SPLEEN: Unremarkable. ADRENALS: Unremarkable. No mass. KIDNEYS AND URETERS: Unremarkable. No hydronephrosis. No solid mass. VASCULATURE: Unremarkable. No aortic aneurysm. BOWEL: There is acute sigmoid diverticulitis without evidence of perisigmoid abscess or free air. There is focal mural thickening of the affected segment of sigmoid colon with hazy increased attenuation of the very sigmoidal fat. APPENDIX: Normal appendix. PERITONEUM: Unremarkable. No free fluid. No free air. LYMPH NODES: Shotty subcentimeter retroperitoneal and pelvic lymph nodes are noted, possibly reactive. BLADDER: There is mural thickening of the left superior bladder adjacent to the inflamed segment of sigmoid colon. REPRODUCTIVE: Status post hysterectomy BONES: No acute fracture. OTHER FINDINGS: None. IMPRESSION: Acute sigmoid diverticulitis without evidence of abscess. There is focal mural thickening of the left superior bladder adjacent to the inflamed sigmoid colon, likely a secondary process. No other significant abnormality.
[2017-08-31 09:17] LABS: PH,URINE 6.5 (4.7-8.0); URINE BILIRUBIN NEGATIVE (NEGATIVE); URINE BLOOD NEGATIVE (NEGATIVE); URINE GLUCOSE (UA) 250 mg/dL (NEGATIVE); URINE LEUKOCYTE ESTERASE NEGATIVE Leu/uL (NEGATIVE); URINE PROTEIN NEGATIVE mg/dL (<30 mg/dL); URINE UROBILINOGEN 0.2 E.U./dL (<1 E.U./dL)
[2017-08-31 09:22] LABS: URINE APPEARANCE CLEAR (CLEAR); URINE COLOR YELLOW (YELLOW)
[2017-08-31] MEDS ORDERED: Ciprofloxacin 400mg/200ml D5W 400 MG/200 ML BAG IVPB STA (09:24)
[2017-08-31] MEDS ORDERED: metroNIDAZOLE IV 500 mg/100 ml 500 MG/100 ML BAG IVPB STA (09:25)
[2017-08-31] MEDS ORDERED: Morphine 2 mg/ml ISec IVP PRN ×2 (10:23→23:02)
[2017-08-31] MEDS: Lactated Ringer's 1,000 ML IV SCH ×2 (11:18→22:24)
--- NOTE | 2017-08-31 11:22 | CP.PCM.CON ---
History of Present Illness - History of Present Illness History of Present Illness: General Surgery Consult Note: Dr. Mcginnis 57F with PMH of DM and HTN presents to [place] ED with complaints of abdominal pain. Patient reports pain began on Wednesday. She states pain began along left lower quadrant and radiates towards pubic symphisis region. Reports nausea and vomiting x4 earlier this morning. Patient reports last time she had a bout of diverticulitis was in 2007. As per patient she had a colonoscopy back in 2007 and she was told she would need a repeat colonoscopy in 10 years. Patient admitted to having chills. Review of Systems - Constitutional Constitutional: Chills. absent: Fever - Cardiovascular Cardiovascular: absent: Chest Pain - Respiratory Respiratory: absent: Cough, Dyspnea, Wheezing - Gastrointestinal Gastrointestinal: Abdominal Pain, Nausea, Vomiting. absent: Diarrhea Additional comments: LLQ tenderness - Genitourinary Genitourinary: Urinary Frequency - Integumentary Integumentary: absent: Rash, Jaundice - Neurological Additional comments: AAOx3 Past Patient History - Infectious Disease Hx of Infectious Diseases: None - Past Social History Smoking Status: Never Smoked - CARDIAC Hx Cardiac Disorders: No Hx Hypertension: Yes - PULMONARY Hx Respiratory Disorders: No - NEUROLOGICAL Hx Neurological Disorder: No - HEENT Hx HEENT Problems: No - RENAL Hx Chronic Kidney Disease: No - ENDOCRINE/METABOLIC Hx Endocrine Disorders: No Hx Diabetes Mellitus Type 2: Yes - HEMATOLOGICAL/ONCOLOGICAL Hx Blood Disorders: No - INTEGUMENTARY Hx Dermatological Problems: No - MUSCULOSKELETAL/RHEUMATOLOGICAL Hx Musculoskeletal Disorders: No Hx Falls: No - GASTROINTESTINAL Hx Gastrointestinal Disorders: Yes Hx Diverticulitis: Yes - GENITOURINARY/GYNECOLOGICAL Hx Genitourinary Disorders: No - PSYCHIATRIC Hx Psychophysiologic Disorder: No Hx Depression: No Hx Emotional Abuse: No Hx Physical Abuse: No Hx Substance Use: No - SURGICAL HISTORY Hx Hysterectomy: Yes (PARTIAL) - ANESTHESIA Hx Anesthesia: No Meds Allergies/Adverse Reactions: Allergies Allergy/AdvReac Type Severity Reaction Status Date / Time EGG Allergy ANAPHYLAXIS Verified 08/31/17 06:44 - Medications Medications: Current Medications Lactated Ringer's (Lactated Ringer's) 1,000 mls @ 100 mls/hr IV .Q10H YOBANY Morphine Sulfate (Morphine) 2 mg IVP Q4 PRN PRN Reason: Pain, severe (8-10) Ondansetron HCl (Zofran Inj) 4 mg IVP Q4 PRN PRN Reason: Nausea/Vomiting Physical Exam - Constitutional Appears: No Acute Distress - Head Exam Head Exam: NORMOCEPHALIC - Eye Exam Eye Exam: Normal appearance - ENT Exam ENT Exam: Normal Exam - Respiratory Exam Respiratory Exam: NORMAL BREATHING PATTERN - Cardiovascular Exam Cardiovascular Exam: +S1, +S2 - GI/Abdominal Exam GI & Abdominal Exam: Soft, Tenderness. absent: Firm, Guarding, Rigid - Extremities Exam Extremities exam: Negative for: calf tenderness - Neurological Exam Neurological exam: Alert, Oriented x3 - Psychiatric Exam Psychiatric exam: Normal Mood - Skin Skin Exam: Dry, Intact Results - Vital Signs Recent Vital Signs: Last Vital Signs Temp 98.1 F 08/31/17 11:10 Pulse 69 08/31/17 11:10 Resp 18 08/31/17 11:10 BP 122/82 08/31/17 11:10 Pulse Ox 99 08/31/17 11:10 - Labs Result Diagrams: 08/31/17 07:00 08/31/17 07:00 Assessment & Plan - Assessment and Plan (Free Text) Assessment: 57F w/ sigmoid diverticulitis -Conservative management -NPO -IVF -Abx -Anti-emetics/Analgesics -DVT ppx -D/w Dr. Mcginnis
[2017-08-31] MEDS ORDERED: Piperacillin/Tazobact 3.375 gm 100 ML IVPB SCH (12:00)
[2017-08-31 12:06] VITALS: BMI 39.6
[2017-08-31] MEDS: metroNIDAZOLE IV 500 mg/100 ml 500 MG/100 ML BAG IVPB SCH ×2 (14:30→22:26)
--- NOTE | 2017-08-31 15:38 | CP.PCM.HP ---
<Brendan Gonzales - Last Filed: 08/31/17 16:55> History of Present Illness - History of Present Illness History of Present Illness: Chief Complaint: Abdominal pain Patient is a 57 year old female with a past medical history of diverticulitis, hypertension, and diabetes mellitus who presented with complaints of left lower quadrant pain which started this past Wednesday. Patient states pain was so severe she awoke from sleep. Patient however states she ate her breakfast and went to [facility] hoping pain would go away. Described pain as sharp, rating it a 10/10, non radiating, exacerbated with movement and relieved with laying still. Patient states she pain continued until today. Endorses three episodes of vomiting which started after patient took fareed selzter and advil, which prompted her to go to the ED, with her fourth episode occurring while at the ED. Patient denies diarrhea, stating she has been constipated for the past week. Patient normally makes a solid bowel movement every other day. Denies fevers, shortness of breath, chest pain, headache, dizziness, cough. PMD: Dr. Gannon Medications: takes medications once a week ; Metformin, lisinopril, HCTZ Allergies: egg Surgical history: partial hysterectomy due to uterine bleeding Family history: non-contributory Social history: denies tobacco, alcohol, illicit drug use Present on Admission - Present on Admission Any Indicators Present on Admission: No Review of Systems - Constitutional Constitutional: Chills. absent: Anorexia, Fever, Night Sweats - EENT Eyes: absent: Blurred Vision, Change in Vision Nose/Mouth/Throat: absent: Nasal Congestion, Nasal Discharge - Cardiovascular Cardiovascular: absent: Chest Pain, Diaphoresis, Dyspnea - Respiratory Respiratory: absent: Dyspnea on Exertion, Wheezing, Chest Congestion - Gastrointestinal Gastrointestinal: Constipation, Nausea, Vomiting. absent: Abdominal Pain - Genitourinary Genitourinary: Dysuria. absent: Flank Pain - Musculoskeletal Musculoskeletal: absent: Atrophy, Back Pain - Neurological Neurological: absent: Dizziness, Numbness - Psychiatric Psychiatric: absent: Anxiety, Change in Appetite - Endocrine Endocrine: absent: Fatigue, Flushing - Hematologic/Lymphatic Hematologic: absent: Easy Bleeding, Easy Bruising Past Patient History - Infectious Disease Hx of Infectious Diseases: None - Past Social History Smoking Status: Never Smoked - CARDIAC Hx Cardiac Disorders: No Hx Hypertension: Yes - PULMONARY Hx Respiratory Disorders: No - NEUROLOGICAL Hx Neurological Disorder: No - HEENT Hx HEENT Problems: No - RENAL Hx Chronic Kidney Disease: No - ENDOCRINE/METABOLIC Hx Endocrine Disorders: No Hx Diabetes Mellitus Type 2: Yes - HEMATOLOGICAL/ONCOLOGICAL Hx Blood Disorders: No - INTEGUMENTARY Hx Dermatological Problems: No - MUSCULOSKELETAL/RHEUMATOLOGICAL Hx Musculoskeletal Disorders: No Hx Falls: No - GASTROINTESTINAL Hx Gastrointestinal Disorders: Yes Hx Diverticulitis: Yes - GENITOURINARY/GYNECOLOGICAL Hx Genitourinary Disorders: No - PSYCHIATRIC Hx Psychophysiologic Disorder: No Hx Depression: No Hx Emotional Abuse: No Hx Physical Abuse: No - SURGICAL HISTORY Hx Hysterectomy: Yes (PARTIAL) - ANESTHESIA Hx Anesthesia: No Meds Allergies/Adverse Reactions: Allergies Allergy/AdvReac Type Severity Reaction Status Date / Time EGG Allergy ANAPHYLAXIS Verified 08/31/17 06:44 Physical Exam - Constitutional Appears: In Acute Distress - Head Exam Head Exam: ATRAUMATIC, NORMAL INSPECTION, NORMOCEPHALIC - Eye Exam Eye Exam: EOMI, Normal appearance Pupil Exam: NORMAL ACCOMODATION - ENT Exam ENT Exam: Mucous Membranes Moist, Normal Exam - Neck Exam Neck exam: Positive for: Normal Inspection - Respiratory Exam Respiratory Exam: Clear to Auscultation Bilateral, NORMAL BREATHING PATTERN. absent: Rales, Rhonchi, Wheezes, Stridor - Cardiovascular Exam Cardiovascular Exam: REGULAR RHYTHM, +S1, +S2 - GI/Abdominal Exam GI & Abdominal Exam: Normal Bowel Sounds, Soft - Extremities Exam Extremities exam: Positive for: normal inspection - Back Exam Back exam: NORMAL INSPECTION - Neurological Exam Neurological exam: Alert, Oriented x3 - Psychiatric Exam Psychiatric exam: Normal Affect, Normal Mood - Skin Skin Exam: Intact, Normal Color, Warm Results - Vital Signs Recent Vital Signs: Last Vital Signs Temp 98.6 F 08/31/17 11:48 Pulse 61 08/31/17 11:48 Resp 18 08/31/17 11:48 BP 137/92 H 08/31/17 11:48 Pulse Ox 99 08/31/17 11:10 - Labs Result Diagrams: 08/31/17 07:00 08/31/17 07:00 Assessment & Plan - Assessment and Plan (Free Text) Assessment: Patient is a 57 year old female with a past medical history of diverticulitis, hypertension, and diabetes mellitus who presented with complaints of left lower quadrant pain which started this past Wednesday found to have acute diverticulitis. Plan: Diverticulitis -CT abdomen/pelvis reveals Sigmoid diverticulitis -Ciproflox and flagyl given in ED -D/c cipro, start zosyn tomorrow -Gen surg consulted -Morphine and Toradol for pain -NPO -Lactated Ringer Hypertension -HCTZ -Lisinopril -BP currently stable continue to monitor NIDDM -HgA1c -ISS-Med -fingerstick q6h Health maintenance -Lipid panel ordered for AM -Mg, Phos -INR,PTT DVT/GI prophylaxis: Heparin/Protonix Dispo: discussed with patient medication and diet compliance. PT eval at some point this week prior to discharge home with follow up appt at [facility] clinic. <Dagoberto Aguila - Last Filed: 09/01/17 19:00> Results - Vital Signs Recent Vital Signs: Last Vital Signs Temp 98.2 F 09/01/17 14:00 Pulse 71 09/01/17 14:00 Resp 18 09/01/17 14:00 BP 125/85 09/01/17 14:00 Pulse Ox 99 09/01/17 14:00 - Labs Result Diagrams: 09/01/17 06:30 09/01/17 06:30 Labs: Laboratory Results - last 24 hr 08/31/17 09/01/17 09/01/17 21:35 02:21 06:30 WBC RBC Hgb Hct MCV MCH MCHC RDW Plt Count MPV Gran % Lymph % (Auto) Cooper % (Auto) Eos % (Auto) Baso % (Auto) Gran # Lymph # (Auto) Cooper # (Auto) Eos # (Auto) Baso # (Auto) PT 13.4 H INR 1.16 H APTT 29.3 Sodium Potassium Chloride Carbon Dioxide Anion Gap BUN Creatinine Est GFR ( Amer) Est GFR (Non-Af Amer) POC Glucose (mg/dL) 142 H 150 H Random Glucose Hemoglobin A1c Calcium Phosphorus Magnesium Total Bilirubin AST ALT Alkaline Phosphatase Total Protein Albumin Globulin Albumin/Globulin Ratio Triglycerides Cholesterol LDL Cholesterol Direct HDL Cholesterol TSH 3rd Generation 09/01/17 09/01/17 09/01/17 06:30 06:30 06:30 WBC 6.2 D RBC 3.75 Hgb 9.5 L Hct 30.9 L MCV 82.4 MCH 25.3 MCHC 30.7 L RDW 15.5 H Plt Count 164 MPV 10.2 Gran % 71.7 H Lymph % (Auto) 19.5 L Cooper % (Auto) 6.3 H Eos % (Auto) 2.3 Baso % (Auto) 0.2 Gran # 4.44 Lymph # (Auto) 1.2 Cooper # (Auto) 0.4 Eos # (Auto) 0.1 Baso # (Auto) 0.01 PT INR APTT Sodium 139 Potassium 3.7 Chloride 102 Carbon Dioxide 28 Anion Gap 13 BUN 11 Creatinine 0.8 Est GFR ( Amer) > 60 Est GFR (Non-Af Amer) > 60 POC Glucose (mg/dL) Random Glucose 191 H Hemoglobin A1c 8.2 H Calcium 8.9 Phosphorus 4.2 Magnesium 1.7 Total Bilirubin 0.9 AST 19 ALT 24 Alkaline Phosphatase 68 Total Protein 6.3 Albumin 3.3 Globulin 3.0 Albumin/Globulin Ratio 1.1 Triglycerides 98 Cholesterol 154 LDL Cholesterol Direct 99 HDL Cholesterol 36 TSH 3rd Generation 09/01/17 09/01/17 09/01/17 07:43 08:00 11:18 WBC RBC Hgb Hct MCV MCH MCHC RDW Plt Count MPV Gran % Lymph % (Auto) Cooper % (Auto) Eos % (Auto) Baso % (Auto) Gran # Lymph # (Auto) Cooper # (Auto) Eos # (Auto) Baso # (Auto) PT INR APTT Sodium Potassium Chloride Carbon Dioxide Anion Gap BUN Creatinine Est GFR ( Amer) Est GFR (Non-Af Amer) POC Glucose (mg/dL) 161 H 157 H Random Glucose Hemoglobin A1c Calcium Phosphorus Magnesium Total Bilirubin AST ALT Alkaline Phosphatase Total Protein Albumin Globulin Albumin/Globulin Ratio Triglycerides Cholesterol LDL Cholesterol Direct HDL Cholesterol TSH 3rd Generation 2.21 09/01/17 16:12 WBC RBC Hgb Hct MCV MCH MCHC RDW Plt Count MPV Gran % Lymph % (Auto) Cooper % (Auto) Eos % (Auto) Baso % (Auto) Gran # Lymph # (Auto) Cooper # (Auto) Eos # (Auto) Baso # (Auto) PT INR APTT Sodium Potassium Chloride Carbon Dioxide Anion Gap BUN Creatinine Est GFR ( Amer) Est GFR (Non-Af Amer) POC Glucose (mg/dL) 148 H Random Glucose Hemoglobin A1c Calcium Phosphorus Magnesium Total Bilirubin AST ALT Alkaline Phosphatase Total Protein Albumin Globulin Albumin/Globulin Ratio Triglycerides Cholesterol LDL Cholesterol Direct HDL Cholesterol TSH 3rd Generation Attending/Attestation - Attestation I have personally seen and examined this patient.: Yes I have fully participated in the care of the patient.: Yes I have reviewed all pertinent clinical information: Yes Notes (Text): 09/01/17 18:58 attending note; Patient seen and examined with the resident In ER. Patient is a 57 year old female with a past medical history of diverticulitis, hypertension, and diabetes mellitus who presented with complaints of left lower quadrant pain. CT scan is consistent with diverticulitis. Patient received ciprofloxacin and Flagyl. Currently started on IVZosyn. ID evaluation requested. Recurrent diverticulitis; patient had colonoscopy 10 years ago. Dietary education given. We will get GI evaluation. currently nothing by mouth. We will start clear liquid diet tomorrow if pain improves. Upon discharge patient will be referred to [facility] clinic.
[2017-08-31] MEDS: Insulin Reg-MEDIUM-Coverage SC SCH ×2 (16:15→22:24)
[2017-08-31] MEDS ORDERED: Piperacillin/Tazobact 3.375 gm 100 ML IVPB ONE (18:00)
--- NOTE | 2017-08-31 18:15 | CP.PCM.CON ---
History of Present Illness - History of Present Illness History of Present Illness: Infectious Disease Consultation: August 31, 2017 57 yo female presenting with left lower quadrant pain starting on Wednesday. She rates the pain up to a 10 out of 10. The patient had nausea and three episodes of vomiting prior to coming to the hospital and had further vomiting episodes in the hospital. PMHx: Diverticulitis, hypertension, diabetes mellitus PSHx: Partial hysterectomy due to uterine bleeding Allergies: Egg Social Hx: No tobacco, EtOH, or illicit drug use Active Medications Acetaminophen (Tylenol 325mg Tab) 650 mg PO Q6H PRN PRN Reason: Fever >100.4 F Enoxaparin Sodium (Lovenox) 40 mg SC DAILY [facility] PRN Reason: Protocol Hydrochlorothiazide (Microzide) 12.5 mg PO DAILY [facility] Lactated Ringer's (Lactated Ringer's) 1,000 mls @ 100 mls/hr IV .Q10H [facility] Last Admin: 08/31/17 11:18 Dose: 100 mls/hr Ciprofloxacin (Cipro 400mg/200ml Dsw) 400 mg in 200 mls @ 133.3 mls/hr IVPB Q12 [facility] PRN Reason: Protocol Stop: 08/31/17 23:31 Metronidazole (Flagyl) 500 mg in 100 mls @ 100 mls/hr IVPB Q8 [facility] PRN Reason: Protocol Last Admin: 08/31/17 14:30 Dose: 100 mls/hr Piperacillin Sod/Tazobactam Sod (Zosyn 3.375 In Ns 100ml) 100 mls @ 200 mls/hr IVPB ONCE ONE PRN Reason: Protocol Stop: 08/31/17 18:29 Last Admin: 08/31/17 17:29 Dose: 200 mls/hr Insulin Human Regular (Humulin R Med) 0 units SC ACHS [facility] PRN Reason: Protocol Last Admin: 08/31/17 16:15 Dose: Not Given Ketorolac Tromethamine (Toradol) 30 mg IVP Q6H PRN PRN Reason: Pain, moderate (4-7) Last Admin: 08/31/17 17:34 Dose: 30 mg Lisinopril (Zestril) 2.5 mg PO DAILY [facility] Morphine Sulfate (Morphine) 2 mg IVP Q4 PRN PRN Reason: Pain, severe (8-10) Last Admin: 08/31/17 14:33 Dose: 2 mg Ondansetron HCl (Zofran Inj) 4 mg IVP Q4 PRN PRN Reason: Nausea/Vomiting Pantoprazole Sodium (Protonix Inj) 40 mg IVP DAILY [facility] Last Admin: 08/31/17 17:29 Dose: 40 mg Family Hx: none given ROS: No fevers, chills, headaches, dizziness, chest pain, melena, hematuria, hematemesis, hematochezia, depression, anxiety Patient had nausea, vomiting, and abdominal pain. Past Patient History - Infectious Disease Hx of Infectious Diseases: None - Past Social History Smoking Status: Never Smoked - CARDIAC Hx Cardiac Disorders: No Hx Hypertension: Yes - PULMONARY Hx Respiratory Disorders: No - NEUROLOGICAL Hx Neurological Disorder: No - HEENT Hx HEENT Problems: No - RENAL Hx Chronic Kidney Disease: No - ENDOCRINE/METABOLIC Hx Endocrine Disorders: No Hx Diabetes Mellitus Type 2: Yes - HEMATOLOGICAL/ONCOLOGICAL Hx Blood Disorders: No - INTEGUMENTARY Hx Dermatological Problems: No - MUSCULOSKELETAL/RHEUMATOLOGICAL Hx Musculoskeletal Disorders: No Hx Falls: No - GASTROINTESTINAL Hx Gastrointestinal Disorders: Yes Hx Diverticulitis: Yes - GENITOURINARY/GYNECOLOGICAL Hx Genitourinary Disorders: No - PSYCHIATRIC Hx Psychophysiologic Disorder: No Hx Depression: No Hx Emotional Abuse: No Hx Physical Abuse: No - SURGICAL HISTORY Hx Hysterectomy: Yes (PARTIAL) - ANESTHESIA Hx Anesthesia: No Meds Allergies/Adverse Reactions: Allergies Allergy/AdvReac Type Severity Reaction Status Date / Time EGG Allergy ANAPHYLAXIS Verified 08/31/17 06:44 - Medications Medications: Current Medications Acetaminophen (Tylenol 325mg Tab) 650 mg PO Q6H PRN PRN Reason: Fever >100.4 F Enoxaparin Sodium (Lovenox) 40 mg SC DAILY [facility] PRN Reason: Protocol Hydrochlorothiazide (Microzide) 12.5 mg PO DAILY [facility] Lactated Ringer's (Lactated Ringer's) 1,000 mls @ 100 mls/hr IV .Q10H [facility] Last Admin: 08/31/17 11:18 Dose: 100 mls/hr Ciprofloxacin (Cipro 400mg/200ml Dsw) 400 mg in 200 mls @ 133.3 mls/hr IVPB Q12 [facility] PRN Reason: Protocol Stop: 08/31/17 23:31 Metronidazole (Flagyl) 500 mg in 100 mls @ 100 mls/hr IVPB Q8 [facility] PRN Reason: Protocol Last Admin: 08/31/17 14:30 Dose: 100 mls/hr Piperacillin Sod/Tazobactam Sod (Zosyn 3.375 In Ns 100ml) 100 mls @ 200 mls/hr IVPB ONCE ONE PRN Reason: Protocol Stop: 08/31/17 18:29 Last Admin: 08/31/17 17:29 Dose: 200 mls/hr Insulin Human Regular (Humulin R Med) 0 units SC ACHS [facility] PRN Reason: Protocol Last Admin: 08/31/17 16:15 Dose: Not Given Ketorolac Tromethamine (Toradol) 30 mg IVP Q6H PRN PRN Reason: Pain, moderate (4-7) Last Admin: 08/31/17 17:34 Dose: 30 mg Lisinopril (Zestril) 2.5 mg PO DAILY [facility] Morphine Sulfate (Morphine) 2 mg IVP Q4 PRN PRN Reason: Pain, severe (8-10) Last Admin: 08/31/17 14:33 Dose: 2 mg Ondansetron HCl (Zofran Inj) 4 mg IVP Q4 PRN PRN Reason: Nausea/Vomiting Pantoprazole Sodium (Protonix Inj) 40 mg IVP DAILY [facility] Last Admin: 08/31/17 17:29 Dose: 40 mg Physical Exam - Constitutional Appears: Non-toxic, No Acute Distress - Head Exam Head Exam: ATRAUMATIC, NORMOCEPHALIC - Eye Exam Eye Exam: EOMI, PERRL Pupil Exam: NORMAL ACCOMODATION, PERRL - ENT Exam ENT Exam: Mucous Membranes Moist, Normal External Ear Exam, TM's Normal Bilaterally - Neck Exam Neck exam: Positive for: Full Rom, Normal Inspection - Respiratory Exam Respiratory Exam: Clear to Auscultation Bilateral, NORMAL BREATHING PATTERN. absent: Rales, Rhonchi, Wheezes - Cardiovascular Exam Cardiovascular Exam: REGULAR RHYTHM, RRR, +S1, +S2 - GI/Abdominal Exam GI & Abdominal Exam: Normal Bowel Sounds, Soft - Extremities Exam Extremities exam: Positive for: full ROM, normal inspection - Neurological Exam Neurological exam: Alert, CN II-XII Intact, Oriented x3 - Psychiatric Exam Psychiatric exam: Normal Affect, Normal Mood - Skin Skin Exam: Intact, Normal Color Results - Vital Signs Recent Vital Signs: Last Vital Signs Temp 99.3 F 08/31/17 14:00 Pulse 70 08/31/17 14:00 Resp 20 08/31/17 14:00 BP 133/86 08/31/17 14:00 Pulse Ox 97 08/31/17 14:00 - Labs Result Diagrams: 08/31/17 07:00 08/31/17 07:00 Labs: Laboratory Results - last 24 hr 08/31/17 15:58 POC Glucose (mg/dL) 131 H Assessment & Plan - Assessment and Plan (Free Text) Assessment: 57 yo female with nausea, vomiting, and abdominal pain she rates as a 10 out of 10. The patient is without fevers or leukocytosis at this time. Imaging studies showing sigmoid diverticulitis. Supportive care. Continue on Zosyn. Unless there is concern for C. diff, can stop the Flagyl as Zosyn has anaerobic coverage. Patient with Hypertension, NIDDM, and history of diverticulitis. Thank you for allowing me to participate in the care of the patient, we will follow with you.
--- NOTE | 2017-08-31 19:45 | CARD ---
APPROVED REPORT EKG Measurement Heart [id number] IN [id number] [id number] <Conclusion> Sinus bradycardia Otherwise normal ECG
[2017-08-31] MEDS ORDERED: Ciprofloxacin 400mg/200ml D5W 400 MG/200 ML BAG IVPB SCH (22:00)
[2017-09-01] MEDS: Piperacillin/Tazobact 3.375 gm 100 ML IVPB SCH ×4 (00:35→18:36)
[2017-09-01 08:14] LABS: BASO # 0.01 K/mm3 (0.0-2.0); BASO % 0.2 % (0.0-3.0); EOS # 0.1 (0.0-0.7); EOS % 2.3 % (1.5-5.0); GRAN # 4.44 (1.4-6.5); GRAN % 71.7 % (50.0-68.0); HEMOGLOBIN 9.5 g/dL (12.0-16.0); LYMPH # 1.2 (1.2-3.4); LYMPH % 19.5 % (22.0-35.0); MEAN CELL VOLUME 82.4 fl (80.0-105.0); MEAN CORPUSCULAR HEMOGLOBIN 25.3 pg (25.0-35.0); MEAN CORPUSCULAR HGB CONC 30.7 g/dl (31.0-37.0); MEAN PLATELET VOLUME 10.2 fl (7.0-11.0); MONO # 0.4 (0.1-0.6); MONO % 6.3 % (1.0-6.0); RBC 3.75 10^6/uL (3.5-6.1); RED CELL DISTRIBUTION WIDTH 15.5 % (11.5-14.5); WHITE BLOOD COUNT 6.2 10^3/ul (4.5-11.0)
[2017-09-01] MEDS: Insulin Reg-MEDIUM-Coverage SC SCH ×4 (08:18→21:40)
[2017-09-01 08:31] LABS: INR 1.16 (0.93-1.08); PARTIAL THROMBOPLASTIN TIME 29.3 Seconds (25.1-36.5); PROTHROMBIN TIME 13.4 SECONDS (9.4-12.5)
[2017-09-01 08:32] LABS: ALB/GLOB RATIO 1.1 (1.1-1.8); ALBUMIN 3.3 g/dL (3.0-4.8); ALT/SGPT 24 U/L (7-56); AST/SGOT 19 U/L (14-36); BLOOD UREA NITROGEN 11 mg/dL (7-21); CALCIUM 8.9 mg/dL (8.4-10.5); GFR AFRICAN-AMERICAN > 60; GFR NON-AFRICAN AMERICAN > 60; HDL CHOLESTEROL 36 mg/dL (29-60)
[2017-09-01 08:38] LABS: LDL CHOLESTEROL 99 mg/dL (0-129)
[2017-09-01] MEDS: Enoxaparin 40 mg Syringe SC SCH (09:44)
--- NOTE | 2017-09-01 09:57 | CP.PCM.PN ---
Subjective - Date & Time of Evaluation Date of Evaluation: 09/01/17 Time of Evaluation: 09:38 - Subjective Subjective: General surgery progress note: Dr. Mcginnis Patient seen and examined at bedside. Patient still having mild diffuse abdominal pain, but is doing better. No fevers, chills, nausea, vomiting, diarrhea. Objective - Vital Signs/Intake and Output Vital Signs (last 24 hours): Temp Pulse Resp BP Pulse Ox 98.4 F 75 18 131/81 97 09/01/17 08:07 09/01/17 08:07 09/01/17 08:07 09/01/17 08:07 09/01/17 08:07 Intake and Output: 09/01/17 09/01/17 06:59 18:59 Intake Total 0 Balance 0 - Medications Medications: Current Medications Acetaminophen (Tylenol 325mg Tab) 650 mg PO Q6H PRN PRN Reason: Fever >100.4 F Enoxaparin Sodium (Lovenox) 40 mg SC DAILY [facility] PRN Reason: Protocol Hydrochlorothiazide (Microzide) 12.5 mg PO DAILY [facility] Lactated Ringer's (Lactated Ringer's) 1,000 mls @ 100 mls/hr IV .Q10H [facility] Last Admin: 08/31/17 22:24 Dose: 100 mls/hr Piperacillin Sod/Tazobactam Sod (Zosyn 3.375 In Ns 100ml) 100 mls @ 200 mls/hr IVPB Q6 [facility] PRN Reason: Protocol Last Admin: 09/01/17 06:13 Dose: 200 mls/hr Insulin Human Regular (Humulin R Med) 0 units SC ACHS [facility] PRN Reason: Protocol Last Admin: 09/01/17 08:18 Dose: 1 units Ketorolac Tromethamine (Toradol) 30 mg IVP Q6H PRN PRN Reason: Pain, moderate (4-7) Last Admin: 08/31/17 17:34 Dose: 30 mg Lisinopril (Zestril) 2.5 mg PO DAILY [facility] Morphine Sulfate (Morphine) 2 mg IVP Q6 PRN PRN Reason: Pain, severe (8-10) Pantoprazole Sodium (Protonix Inj) 40 mg IVP DAILY [facility] Last Admin: 08/31/17 17:29 Dose: 40 mg - Labs Labs: 09/01/17 06:30 09/01/17 06:30 PT 13.4 SECONDS (9.4-12.5) H 09/01/17 06:30 INR 1.16 (0.93-1.08) H 09/01/17 06:30 APTT 29.3 Seconds (25.1-36.5) 09/01/17 06:30 - Constitutional Appears: Well - Head Exam Head Exam: ATRAUMATIC, NORMAL INSPECTION, NORMOCEPHALIC - Eye Exam Eye Exam: EOMI, Normal appearance, PERRL Pupil Exam: NORMAL ACCOMODATION, PERRL - ENT Exam ENT Exam: Mucous Membranes Moist, Normal Exam - Neck Exam Neck Exam: Full ROM, Normal Inspection. absent: Lymphadenopathy - Respiratory Exam Respiratory Exam: Clear to Ausculation Bilateral, NORMAL BREATHING PATTERN - Cardiovascular Exam Cardiovascular Exam: REGULAR RHYTHM, +S1, +S2. absent: Murmur - GI/Abdominal Exam GI & Abdominal Exam: Soft, Normal Bowel Sounds. absent: Tenderness - Extremities Exam Extremities Exam: Full ROM, Normal Capillary Refill, Normal Inspection. absent : Joint Swelling, Pedal Edema - Back Exam Back Exam: NORMAL INSPECTION - Neurological Exam Neurological Exam: Alert, Awake, CN II-XII Intact, Normal Gait, Oriented x3 - Psychiatric Exam Psychiatric exam: Normal Affect, Normal Mood - Skin Skin Exam: Dry, Intact, Normal Color, Warm Assessment and Plan - Assessment and Plan (Free Text) Assessment: 57F w/ sigmoid diverticulitis -Conservative management -Advance diet to clear liquids this morning -IVF -Abx -Anti-emetics/Analgesics -DVT ppx
[2017-09-01] MEDS: Lactated Ringer's 1,000 ML IV SCH (11:07)
--- NOTE | 2017-09-01 11:41 | CP.PCM.CON ---
<Keely Mares - Last Filed: 09/01/17 18:49> History of Present Illness - History of Present Illness History of Present Illness: GI Fellow PGY4 Consult Note Patient is a 57 year old female with a past medical history of diverticulitis 10yrs ago, hypertension, and diabetes mellitus who presented with complaints of left lower quadrant pain which started this past Wednesday. Patient states pain was so severe she awoke from sleep. Described pain as sharp, rating it a 10/10, non radiating, exacerbated with movement and relieved with laying still. Patient states she pain continued until today. Endorses three episodes of vomiting which prompted her to go to the ED, with her fourth episode occurring while at the ED. Patient denies diarrhea, stating she has been constipated for the past week. Patient normally makes a solid bowel movement every other day. Denies fevers, shortness of breath, chest pain, headache, dizziness, cough. ROS: A 12pt ROS was negative except as above PMHX: As stated in HPI SHX: partial hysterectomy due to uterine bleeding FHX: no colon cancer SHX: denies tobacco, alcohol, illicit drug use Past Patient History - Infectious Disease Hx of Infectious Diseases: None - Past Social History Smoking Status: Never Smoked - CARDIAC Hx Cardiac Disorders: No Hx Hypertension: Yes - PULMONARY Hx Respiratory Disorders: No - NEUROLOGICAL Hx Neurological Disorder: No - HEENT Hx HEENT Problems: No - RENAL Hx Chronic Kidney Disease: No - ENDOCRINE/METABOLIC Hx Endocrine Disorders: No Hx Diabetes Mellitus Type 2: Yes - HEMATOLOGICAL/ONCOLOGICAL Hx Blood Disorders: No - INTEGUMENTARY Hx Dermatological Problems: No - MUSCULOSKELETAL/RHEUMATOLOGICAL Hx Musculoskeletal Disorders: No Hx Falls: No - GASTROINTESTINAL Hx Gastrointestinal Disorders: Yes Hx Diverticulitis: Yes - GENITOURINARY/GYNECOLOGICAL Hx Genitourinary Disorders: No - PSYCHIATRIC Hx Psychophysiologic Disorder: No Hx Depression: No Hx Emotional Abuse: No Hx Physical Abuse: No - SURGICAL HISTORY Hx Hysterectomy: Yes (PARTIAL) - ANESTHESIA Hx Anesthesia: No Meds Allergies/Adverse Reactions: Allergies Allergy/AdvReac Type Severity Reaction Status Date / Time EGG Allergy ANAPHYLAXIS Verified 08/31/17 06:44 - Medications Medications: Current Medications Acetaminophen (Tylenol 325mg Tab) 650 mg PO Q6H PRN PRN Reason: Fever >100.4 F Enoxaparin Sodium (Lovenox) 40 mg SC DAILY [facility] PRN Reason: Protocol Last Admin: 09/01/17 09:44 Dose: 40 mg Hydrochlorothiazide (Microzide) 12.5 mg PO DAILY [facility] BEDS [facility] Last Admin: 09/01/17 09:45 Dose: 12.5 mg Lactated Ringer's (Lactated Ringer's) 1,000 mls @ 100 mls/hr IV .Q10H COUNTS [facility]CLUDE 234 BEDS AT [facility] Last Admin: 09/01/17 11:07 Dose: 100 mls/hr Piperacillin Sod/Tazobactam Sod (Zosyn 3.375 In Ns 100ml) 100 mls @ 200 mls/hr IVPB Q6 COUNTS INCLUDE 234 BEDS AT THE [facility] PRN Reason: Protocol Last Admin: 09/01/17 06:13 Dose: 200 mls/hr Insulin Human Regular (Humulin R Med) 0 units SC ACHS COUNTS INCLUDE 234 BEDS AT [facility] PRN Reason: Protocol Last Admin: 09/01/17 08:18 Dose: 1 units Ketorolac Tromethamine (Toradol) 30 mg IVP Q6H PRN PRN Reason: Pain, moderate (4-7) Last Admin: 08/31/17 17:34 Dose: 30 mg Lisinopril (Zestril) 2.5 mg PO DAILY COUNTS [facility]CLUDE 234 BEDS AT [facility] Last Admin: 09/01/17 09:46 Dose: 2.5 mg Morphine Sulfate (Morphine) 2 mg IVP Q6 PRN PRN Reason: Pain, severe (8-10) Pantoprazole Sodium (Protonix Inj) 40 mg IVP DAILY COUNTS [facility]CLUDE 234 BEDS AT [facility] Last Admin: 09/01/17 09:45 Dose: 40 mg Physical Exam - Constitutional Appears: Non-toxic, No Acute Distress - Head Exam Head Exam: ATRAUMATIC, NORMAL INSPECTION, NORMOCEPHALIC - Eye Exam Eye Exam: EOMI, Normal appearance, PERRL Pupil Exam: PERRL - ENT Exam ENT Exam: Mucous Membranes Moist - Neck Exam Neck exam: Positive for: Normal Inspection - Respiratory Exam Respiratory Exam: Clear to Auscultation Bilateral, NORMAL BREATHING PATTERN - Cardiovascular Exam Cardiovascular Exam: REGULAR RHYTHM - GI/Abdominal Exam GI & Abdominal Exam: Normal Bowel Sounds, Soft, Tenderness. absent: Distended, Organomegaly - Extremities Exam Extremities exam: Positive for: full ROM, normal inspection - Back Exam Back exam: NORMAL INSPECTION - Neurological Exam Neurological exam: Alert, Oriented x3 - Psychiatric Exam Psychiatric exam: Normal Affect, Normal Mood - Skin Skin Exam: Dry, Intact, Normal Color, Warm Results - Vital Signs Recent Vital Signs: Last Vital Signs Temp 98.4 F 09/01/17 08:07 Pulse 75 09/01/17 09:46 Resp 18 09/01/17 08:07 BP 131/81 09/01/17 09:46 Pulse Ox 97 09/01/17 08:07 - Labs Result Diagrams: 09/01/17 06:30 09/01/17 06:30 Labs: Laboratory Results - last 24 hr 08/31/17 08/31/17 09/01/17 15:58 21:35 02:21 WBC RBC Hgb Hct MCV MCH MCHC RDW Plt Count MPV Gran % Lymph % (Auto) Edgar % (Auto) Eos % (Auto) Baso % (Auto) Gran # Lymph # (Auto) Edgar # (Auto) Eos # (Auto) Baso # (Auto) PT INR APTT Sodium Potassium Chloride Carbon Dioxide Anion Gap BUN Creatinine Est GFR ( Amer) Est GFR (Non-Af Amer) POC Glucose (mg/dL) 131 H 142 H 150 H Random Glucose Hemoglobin A1c Calcium Phosphorus Magnesium Total Bilirubin AST ALT Alkaline Phosphatase Total Protein Albumin Globulin Albumin/Globulin Ratio Triglycerides Cholesterol LDL Cholesterol Direct HDL Cholesterol TSH 3rd Generation 09/01/17 09/01/17 09/01/17 06:30 06:30 06:30 WBC 6.2 D RBC 3.75 Hgb 9.5 L Hct 30.9 L MCV 82.4 MCH 25.3 MCHC 30.7 L RDW 15.5 H Plt Count 164 MPV 10.2 Gran % 71.7 H Lymph % (Auto) 19.5 L Edgar % (Auto) 6.3 H Eos % (Auto) 2.3 Baso % (Auto) 0.2 Gran # 4.44 Lymph # (Auto) 1.2 Edgar # (Auto) 0.4 Eos # (Auto) 0.1 Baso # (Auto) 0.01 PT 13.4 H INR 1.16 H APTT 29.3 Sodium 139 Potassium 3.7 Chloride 102 Carbon Dioxide 28 Anion Gap 13 BUN 11 Creatinine 0.8 Est GFR ( Amer) > 60 Est GFR (Non-Af Amer) > 60 POC Glucose (mg/dL) Random Glucose 191 H Hemoglobin A1c Calcium 8.9 Phosphorus 4.2 Magnesium 1.7 Total Bilirubin 0.9 AST 19 ALT 24 Alkaline Phosphatase 68 Total Protein 6.3 Albumin 3.3 Globulin 3.0 Albumin/Globulin Ratio 1.1 Triglycerides 98 Cholesterol 154 LDL Cholesterol Direct 99 HDL Cholesterol 36 TSH 3rd Generation 09/01/17 09/01/17 09/01/17 06:30 07:43 08:00 WBC RBC Hgb Hct MCV MCH MCHC RDW Plt Count MPV Gran % Lymph % (Auto) Edgar % (Auto) Eos % (Auto) Baso % (Auto) Gran # Lymph # (Auto) Edgar # (Auto) Eos # (Auto) Baso # (Auto) PT INR APTT Sodium Potassium Chloride Carbon Dioxide Anion Gap BUN Creatinine Est GFR ( Amer) Est GFR (Non-Af Amer) POC Glucose (mg/dL) 161 H Random Glucose Hemoglobin A1c 8.2 H Calcium Phosphorus Magnesium Total Bilirubin AST ALT Alkaline Phosphatase Total Protein Albumin Globulin Albumin/Globulin Ratio Triglycerides Cholesterol LDL Cholesterol Direct HDL Cholesterol TSH 3rd Generation 2.21 09/01/17 11:18 WBC RBC Hgb Hct MCV MCH MCHC RDW Plt Count MPV Gran % Lymph % (Auto) Edgar % (Auto) Eos % (Auto) Baso % (Auto) Gran # Lymph # (Auto) Edgar # (Auto) Eos # (Auto) Baso # (Auto) PT INR APTT Sodium Potassium Chloride Carbon Dioxide Anion Gap BUN Creatinine Est GFR ( Amer) Est GFR (Non-Af Amer) POC Glucose (mg/dL) 157 H Random Glucose Hemoglobin A1c Calcium Phosphorus Magnesium Total Bilirubin AST ALT Alkaline Phosphatase Total Protein Albumin Globulin Albumin/Globulin Ratio Triglycerides Cholesterol LDL Cholesterol Direct HDL Cholesterol TSH 3rd Generation Assessment & Plan - Assessment and Plan (Free Text) Assessment: This is a 57F presenting with complaints of left sided abdominal pain. 1. Acute Diverticulitis of sigmoid colon Plan: -Continue supportive care with pain control and anti-emetics -IVF hydration -IV abx -CT imaging reviewed with inflammation of sigmoid colon -Advance to clear liquid diet -Bowel regimen with miralax -Discussed with pt about outpt followup and need for colonoscopy in 6-8 week to r/o malignancy -Will continue to follow closely <Neisha Basurto - Last Filed: 09/01/17 20:00> Meds - Medications Medications: Current Medications Acetaminophen (Tylenol 325mg Tab) 650 mg PO Q6H PRN PRN Reason: Fever >100.4 F Enoxaparin Sodium (Lovenox) 40 mg SC DAILY COUNTS INCLUDE 234 BEDS AT [facility] PRN Reason: Protocol Last Admin: 09/01/17 09:44 Dose: 40 mg Hydrochlorothiazide (Microzide) 12.5 mg PO DAILY COUNTS INCLUDE 234 BEDS AT [facility] Last Admin: 09/01/17 09:45 Dose: 12.5 mg Lactated Ringer's (Lactated Ringer's) 1,000 mls @ 100 mls/hr IV .Q10H COUNTS INCLUDE 234 BEDS AT [facility] Last Admin: 09/01/17 11:07 Dose: 100 mls/hr Piperacillin Sod/Tazobactam Sod (Zosyn 3.375 In Ns 100ml) 100 mls @ 200 mls/hr IVPB Q6 COUNTS INCLUDE 234 BEDS AT [facility] PRN Reason: Protocol Last Admin: 09/01/17 18:36 Dose: 200 mls/hr Insulin Human Regular (Humulin R Med) 0 units SC ACHS COUNTS INCLUDE 234 BEDS AT [facility] PRN Reason: Protocol Last Admin: 09/01/17 17:37 Dose: Not Given Ketorolac Tromethamine (Toradol) 30 mg IVP Q6H PRN PRN Reason: Pain, moderate (4-7) Last Admin: 08/31/17 17:34 Dose: 30 mg Lisinopril (Zestril) 2.5 mg PO DAILY COUNTS INCLUDE 234 BEDS AT [facility] Last Admin: 09/01/17 09:46 Dose: 2.5 mg Morphine Sulfate (Morphine) 2 mg IVP Q6 PRN PRN Reason: Pain, severe (8-10) Pantoprazole Sodium (Protonix Inj) 40 mg IVP DAILY COUNTS INCLUDE 234 BEDS AT [facility] Last Admin: 09/01/17 09:45 Dose: 40 mg Polyethylene Glycol (Miralax) 17 gm PO DAILY COUNTS INCLUDE 234 BEDS AT [facility] Results - Vital Signs Recent Vital Signs: Last Vital Signs Temp 98.2 F 09/01/17 14:00 Pulse 71 09/01/17 14:00 Resp 18 09/01/17 14:00 BP 125/85 09/01/17 14:00 Pulse Ox 99 09/01/17 14:00 - Labs Result Diagrams: 09/01/17 06:30 09/01/17 06:30 Labs: Laboratory Results - last 24 hr 08/31/17 09/01/17 09/01/17 21:35 02:21 06:30 WBC RBC Hgb Hct MCV MCH MCHC RDW Plt Count MPV Gran % Lymph % (Auto) Edgar % (Auto) Eos % (Auto) Baso % (Auto) Gran # Lymph # (Auto) Edgar # (Auto) Eos # (Auto) Baso # (Auto) PT 13.4 H INR 1.16 H APTT 29.3 Sodium Potassium Chloride Carbon Dioxide Anion Gap BUN Creatinine Est GFR ( Amer) Est GFR (Non-Af Amer) POC Glucose (mg/dL) 142 H 150 H Random Glucose Hemoglobin A1c Calcium Phosphorus Magnesium Total Bilirubin AST ALT Alkaline Phosphatase Total Protein Albumin Globulin Albumin/Globulin Ratio Triglycerides Cholesterol LDL Cholesterol Direct HDL Cholesterol TSH 3rd Generation 09/01/17 09/01/17 09/01/17 06:30 06:30 06:30 WBC 6.2 D RBC 3.75 Hgb 9.5 L Hct 30.9 L MCV 82.4 MCH 25.3 MCHC 30.7 L RDW 15.5 H Plt Count 164 MPV 10.2 Gran % 71.7 H Lymph % (Auto) 19.5 L Edgar % (Auto) 6.3 H Eos % (Auto) 2.3 Baso % (Auto) 0.2 Gran # 4.44 Lymph # (Auto) 1.2 Edgar # (Auto) 0.4 Eos # (Auto) 0.1 Baso # (Auto) 0.01 PT INR APTT Sodium 139 Potassium 3.7 Chloride 102 Carbon Dioxide 28 Anion Gap 13 BUN 11 Creatinine 0.8 Est GFR ( Amer) > 60 Est GFR (Non-Af Amer) > 60 POC Glucose (mg/dL) Random Glucose 191 H Hemoglobin A1c 8.2 H Calcium 8.9 Phosphorus 4.2 Magnesium 1.7 Total Bilirubin 0.9 AST 19 ALT 24 Alkaline Phosphatase 68 Total Protein 6.3 Albumin 3.3 Globulin 3.0 Albumin/Globulin Ratio 1.1 Triglycerides 98 Cholesterol 154 LDL Cholesterol Direct 99 HDL Cholesterol 36 TSH 3rd Generation 09/01/17 09/01/17 09/01/17 07:43 08:00 11:18 WBC RBC Hgb Hct MCV MCH MCHC RDW Plt Count MPV Gran % Lymph % (Auto) Edgar % (Auto) Eos % (Auto) Baso % (Auto) Gran # Lymph # (Auto) Edgar # (Auto) Eos # (Auto) Baso # (Auto) PT INR APTT Sodium Potassium Chloride Carbon Dioxide Anion Gap BUN Creatinine Est GFR ( Amer) Est GFR (Non-Af Amer) POC Glucose (mg/dL) 161 H 157 H Random Glucose Hemoglobin A1c Calcium Phosphorus Magnesium Total Bilirubin AST ALT Alkaline Phosphatase Total Protein Albumin Globulin Albumin/Globulin Ratio Triglycerides Cholesterol LDL Cholesterol Direct HDL Cholesterol TSH 3rd Generation 2.21 09/01/17 16:12 WBC RBC Hgb Hct MCV MCH MCHC RDW Plt Count MPV Gran % Lymph % (Auto) Edgar % (Auto) Eos % (Auto) Baso % (Auto) Gran # Lymph # (Auto) Edgar # (Auto) Eos # (Auto) Baso # (Auto) PT INR APTT Sodium Potassium Chloride Carbon Dioxide Anion Gap BUN Creatinine Est GFR ( Amer) Est GFR (Non-Af Amer) POC Glucose (mg/dL) 148 H Random Glucose Hemoglobin A1c Calcium Phosphorus Magnesium Total Bilirubin AST ALT Alkaline Phosphatase Total Protein Albumin Globulin Albumin/Globulin Ratio Triglycerides Cholesterol LDL Cholesterol Direct HDL Cholesterol TSH 3rd Generation Attending/Attestation - Attestation I have personally seen and examined this patient.: Yes I have fully participated in the care of the patient.: Yes I have reviewed all pertinent clinical information: Yes Notes (Text): 09/01/17 19:46 Patient seen with GI fellow. This is a 57 yr old F presenting with complaints of left sided abdominal pain in setting of acute diverticulitis of sigmoid colon. On physical exam significant tenderness and guarding today. Will continue supportive care with pain control and anti-emetics and antibiotics. If pain does not resolve or gets worse will repeat CT abdomen in 24 hours. Bowel regimen with miralax. Discussed with pt about outpt followup and need for colonoscopy in 6-8 weeks. Will continue to follow closely
--- NOTE | 2017-09-01 17:02 | CP.PCM.PN ---
Subjective - Date & Time of Evaluation Date of Evaluation: 09/01/17 Time of Evaluation: 10:00 - Subjective Subjective: Infectious Disease Follow Up: September 01, 2017 57 yo female presenting with left lower quadrant pain starting on Wednesday. She rates the pain up to a 10 out of 10. The patient had nausea and three episodes of vomiting prior to coming to the hospital and had further vomiting episodes in the hospital. Abdominal pain has been improving to 6 out of 10 rating. Objective - Vital Signs/Intake and Output Vital Signs (last 24 hours): Temp Pulse Resp BP Pulse Ox 98.2 F 71 18 125/85 99 09/01/17 14:00 09/01/17 14:00 09/01/17 14:00 09/01/17 14:00 09/01/17 14:00 Intake and Output: 09/01/17 09/01/17 06:59 18:59 Intake Total 0 Balance 0 - Medications Medications: Current Medications Acetaminophen (Tylenol 325mg Tab) 650 mg PO Q6H PRN PRN Reason: Fever >100.4 F Enoxaparin Sodium (Lovenox) 40 mg SC DAILY [facility] PRN Reason: Protocol Last Admin: 09/01/17 09:44 Dose: 40 mg Hydrochlorothiazide (Microzide) 12.5 mg PO DAILY [facility] Last Admin: 09/01/17 09:45 Dose: 12.5 mg Lactated Ringer's (Lactated Ringer's) 1,000 mls @ 100 mls/hr IV .Q10H [facility] Last Admin: 09/01/17 11:07 Dose: 100 mls/hr Piperacillin Sod/Tazobactam Sod (Zosyn 3.375 In Ns 100ml) 100 mls @ 200 mls/hr IVPB Q6 [facility] PRN Reason: Protocol Last Admin: 09/01/17 13:02 Dose: 200 mls/hr Insulin Human Regular (Humulin R Med) 0 units SC ACHS [facility] PRN Reason: Protocol Last Admin: 09/01/17 08:18 Dose: 1 units Ketorolac Tromethamine (Toradol) 30 mg IVP Q6H PRN PRN Reason: Pain, moderate (4-7) Last Admin: 08/31/17 17:34 Dose: 30 mg Lisinopril (Zestril) 2.5 mg PO DAILY [facility] Last Admin: 09/01/17 09:46 Dose: 2.5 mg Morphine Sulfate (Morphine) 2 mg IVP Q6 PRN PRN Reason: Pain, severe (8-10) Pantoprazole Sodium (Protonix Inj) 40 mg IVP DAILY [facility] Last Admin: 09/01/17 09:45 Dose: 40 mg Polyethylene Glycol (Miralax) 17 gm PO DAILY [facility] - Labs Labs: 09/01/17 06:30 09/01/17 06:30 PT 13.4 SECONDS (9.4-12.5) H 09/01/17 06:30 INR 1.16 (0.93-1.08) H 09/01/17 06:30 APTT 29.3 Seconds (25.1-36.5) 09/01/17 06:30 - Constitutional Appears: Non-toxic, No Acute Distress - Head Exam Head Exam: ATRAUMATIC, NORMOCEPHALIC - Eye Exam Eye Exam: EOMI, PERRL Pupil Exam: NORMAL ACCOMODATION, PERRL - ENT Exam ENT Exam: Mucous Membranes Moist, Normal External Ear Exam, TM's Normal Bilaterally - Neck Exam Neck Exam: Full ROM, Normal Inspection - Respiratory Exam Respiratory Exam: Clear to Ausculation Bilateral, NORMAL BREATHING PATTERN. absent: Rales, Rhonchi, Wheezes - Cardiovascular Exam Cardiovascular Exam: REGULAR RHYTHM, RRR, +S1, +S2 - GI/Abdominal Exam GI & Abdominal Exam: Soft, Tenderness, Normal Bowel Sounds - Extremities Exam Extremities Exam: Full ROM, Normal Inspection - Neurological Exam Neurological Exam: Alert, Awake, CN II-XII Intact, Oriented x3 - Psychiatric Exam Psychiatric exam: Normal Affect, Normal Mood - Skin Skin Exam: Intact, Normal Color Assessment and Plan - Assessment and Plan (Free Text) Assessment: 57 yo female with nausea, vomiting, and abdominal pain she rates as a 10 out of 10. The patient is without fevers or leukocytosis at this time. Imaging studies showing sigmoid diverticulitis. Supportive care. Continue on Zosyn. Unless there is concern for C. diff, can stop the Flagyl as Zosyn has anaerobic coverage. Patient with Hypertension, NIDDM, and history of diverticulitis. Patient appears to be improving. Thank you for allowing me to participate in the care of the patient, we will follow with you.
[2017-09-02] MEDS: Piperacillin/Tazobact 3.375 gm 100 ML IVPB SCH ×5 (00:17→23:23)
[2017-09-02] MEDS: Lactated Ringer's 1,000 ML IV SCH ×2 (05:58→05:59)
--- NOTE | 2017-09-02 07:24 | CP.PCM.PN ---
<Keely Mares - Last Filed: 09/02/17 08:27> Subjective - Date & Time of Evaluation Date of Evaluation: 09/02/17 Time of Evaluation: 07:00 - Subjective Subjective: GI Fellow PGY4 Progress Note Pt seen and evaluated at bedside, pt doing well, abdominal pain is much better. Tolerating clear liquid diet with no N/V. Pt had one BM this morning. No fevers or chills. ROS: A 12pt ROS was negative except as above. Objective - Vital Signs/Intake and Output Vital Signs (last 24 hours): Temp Pulse Resp BP Pulse Ox 98.2 F 71 18 125/85 99 09/01/17 14:00 09/01/17 14:00 09/01/17 14:00 09/01/17 14:00 09/01/17 14:00 Intake and Output: 09/02/17 09/02/17 06:59 18:59 Intake Total 180 Balance 180 - Medications Medications: Current Medications Acetaminophen (Tylenol 325mg Tab) 650 mg PO Q6H PRN PRN Reason: Fever >100.4 F Enoxaparin Sodium (Lovenox) 40 mg SC DAILY [facility] PRN Reason: Protocol Last Admin: 09/01/17 09:44 Dose: 40 mg Hydrochlorothiazide (Microzide) 12.5 mg PO DAILY [facility] Last Admin: 09/01/17 09:45 Dose: 12.5 mg Lactated Ringer's (Lactated Ringer's) 1,000 mls @ 100 mls/hr IV .Q10H [facility] Last Admin: 09/02/17 05:59 Dose: 100 mls/hr Piperacillin Sod/Tazobactam Sod (Zosyn 3.375 In Ns 100ml) 100 mls @ 200 mls/hr IVPB Q6 [facility] PRN Reason: Protocol Last Admin: 09/02/17 05:58 Dose: 200 mls/hr Insulin Human Regular (Humulin R Med) 0 units SC ACHS [facility] PRN Reason: Protocol Last Admin: 09/01/17 21:40 Dose: Not Given Ketorolac Tromethamine (Toradol) 30 mg IVP Q6H PRN PRN Reason: Pain, moderate (4-7) Last Admin: 08/31/17 17:34 Dose: 30 mg Lisinopril (Zestril) 2.5 mg PO DAILY [facility] Last Admin: 09/01/17 09:46 Dose: 2.5 mg Morphine Sulfate (Morphine) 2 mg IVP Q6 PRN PRN Reason: Pain, severe (8-10) Pantoprazole Sodium (Protonix Inj) 40 mg IVP DAILY [facility] Last Admin: 09/01/17 09:45 Dose: 40 mg Polyethylene Glycol (Miralax) 17 gm PO DAILY [facility] - Labs Labs: 09/01/17 06:30 09/01/17 06:30 PT 13.4 SECONDS (9.4-12.5) H 09/01/17 06:30 INR 1.16 (0.93-1.08) H 09/01/17 06:30 APTT 29.3 Seconds (25.1-36.5) 09/01/17 06:30 - Constitutional Appears: Non-toxic, No Acute Distress - Head Exam Head Exam: ATRAUMATIC, NORMAL INSPECTION, NORMOCEPHALIC - Eye Exam Eye Exam: EOMI, Normal appearance, PERRL - ENT Exam ENT Exam: Mucous Membranes Moist, Normal Exam - Neck Exam Neck Exam: Full ROM, Normal Inspection - Respiratory Exam Respiratory Exam: Clear to Ausculation Bilateral, NORMAL BREATHING PATTERN - Cardiovascular Exam Cardiovascular Exam: REGULAR RHYTHM, RRR, +S1, +S2 - GI/Abdominal Exam GI & Abdominal Exam: Soft, Tenderness, Normal Bowel Sounds. absent: Distended, Guarding, Rigid - Extremities Exam Extremities Exam: Full ROM, Normal Inspection - Back Exam Back Exam: NORMAL INSPECTION - Neurological Exam Neurological Exam: Alert, Awake, Oriented x3 - Psychiatric Exam Psychiatric exam: Normal Affect, Normal Mood - Skin Skin Exam: Dry, Intact, Normal Color, Warm Assessment and Plan - Assessment and Plan (Free Text) Assessment: This is a 57F presenting with complaints of left sided abdominal pain. 1. Acute Diverticulitis of sigmoid colon, second episode Plan: -Continue supportive care with pain control and anti-emetics -Pt clinically improving abdominal pain, no fevers or WBC -IVF hydration -IV abx, ID following -CT imaging reviewed with inflammation of sigmoid colon, stool -Clear liquid diet, advance as tolerated -Bowel regimen with miralax -Discussed with pt about outpt followup and need for colonoscopy in 6-8 week to r/o malignancy -Please call with any questions or concerns <Bernardo Brantley - Last Filed: 09/02/17 08:34> Objective - Vital Signs/Intake and Output Vital Signs (last 24 hours): Temp Pulse Resp BP Pulse Ox 98.2 F 71 18 125/85 99 09/01/17 14:00 09/01/17 14:00 09/01/17 14:00 09/01/17 14:00 09/01/17 14:00 Intake and Output: 09/02/17 09/02/17 06:59 18:59 Intake Total 180 Balance 180 - Medications Medications: Current Medications Acetaminophen (Tylenol 325mg Tab) 650 mg PO Q6H PRN PRN Reason: Fever >100.4 F Enoxaparin Sodium (Lovenox) 40 mg SC DAILY [facility] PRN Reason: Protocol Last Admin: 09/01/17 09:44 Dose: 40 mg Hydrochlorothiazide (Microzide) 12.5 mg PO DAILY [facility] Last Admin: 09/01/17 09:45 Dose: 12.5 mg Piperacillin Sod/Tazobactam Sod (Zosyn 3.375 In Ns 100ml) 100 mls @ 200 mls/hr IVPB Q6 [facility] PRN Reason: Protocol Last Admin: 09/02/17 05:58 Dose: 200 mls/hr Insulin Human Regular (Humulin R Med) 0 units SC ACHS [facility] PRN Reason: Protocol Last Admin: 09/01/17 21:40 Dose: Not Given Ketorolac Tromethamine (Toradol) 30 mg IVP Q6H PRN PRN Reason: Pain, moderate (4-7) Last Admin: 08/31/17 17:34 Dose: 30 mg Lisinopril (Zestril) 2.5 mg PO DAILY [facility] Last Admin: 09/01/17 09:46 Dose: 2.5 mg Morphine Sulfate (Morphine) 2 mg IVP Q6 PRN PRN Reason: Pain, severe (8-10) Pantoprazole Sodium (Protonix Inj) 40 mg IVP DAILY [facility] Last Admin: 09/01/17 09:45 Dose: 40 mg Polyethylene Glycol (Miralax) 17 gm PO DAILY [facility] - Labs Labs: 09/02/17 06:45 09/02/17 06:45 PT 13.4 SECONDS (9.4-12.5) H 09/01/17 06:30 INR 1.16 (0.93-1.08) H 09/01/17 06:30 APTT 29.3 Seconds (25.1-36.5) 09/01/17 06:30 Attending/Attestation - Attestation I have personally seen and examined this patient.: Yes I have fully participated in the care of the patient.: Yes I have reviewed all pertinent clinical information, including history, physical exam and plan: Yes Notes (Text): 09/02/17 08:33 57 year old female with uncomplicated acute diverticulitis responding to antibiotics. Recommend 2 week course of abx. Diet as tolerated. Outpatient colonoscopy in 2 months.
[2017-09-02 07:29] LABS: BASO # 0.01 K/mm3 (0.0-2.0); BASO % 0.2 % (0.0-3.0); EOS # 0.2 (0.0-0.7); EOS % 3.5 % (1.5-5.0); GRAN # 3.59 (1.4-6.5); GRAN % 63.6 % (50.0-68.0); HEMOGLOBIN 9.7 g/dL (12.0-16.0); LYMPH # 1.5 (1.2-3.4); LYMPH % 26.7 % (22.0-35.0); MEAN CELL VOLUME 81.9 fl (80.0-105.0); MEAN CORPUSCULAR HEMOGLOBIN 25.5 pg (25.0-35.0); MEAN CORPUSCULAR HGB CONC 31.1 g/dl (31.0-37.0); MEAN PLATELET VOLUME 10.1 fl (7.0-11.0); MONO # 0.3 (0.1-0.6); RBC 3.81 10^6/uL (3.5-6.1); RED CELL DISTRIBUTION WIDTH 15.3 % (11.5-14.5); WHITE BLOOD COUNT 5.7 10^3/ul (4.5-11.0)
[2017-09-02 07:39] LABS: ALB/GLOB RATIO 1.1 (1.1-1.8); ALBUMIN 3.3 g/dL (3.0-4.8); ALT/SGPT 25 U/L (7-56); AST/SGOT 18 U/L (14-36); BLOOD UREA NITROGEN 7 mg/dL (7-21); CALCIUM 9.2 mg/dL (8.4-10.5); GFR AFRICAN-AMERICAN > 60; GFR NON-AFRICAN AMERICAN > 60
[2017-09-02] MEDS: Insulin Reg-MEDIUM-Coverage SC SCH ×4 (08:00→21:54)
[2017-09-02] MEDS ORDERED: Potassium Chloride 20 mEq ER Tab PO ONE (08:04)
--- NOTE | 2017-09-02 08:38 | CP.PCM.PN ---
Subjective - Date & Time of Evaluation Date of Evaluation: 09/02/17 Time of Evaluation: 08:33 - Subjective Subjective: Surgery Pt s&e. NAEON. Denies pain/N/V/D/CP/SOB/dysuria. Objective - Vital Signs/Intake and Output Vital Signs (last 24 hours): Temp Pulse Resp BP Pulse Ox 98.2 F 71 18 125/85 99 09/01/17 14:00 09/01/17 14:00 09/01/17 14:00 09/01/17 14:00 09/01/17 14:00 Intake and Output: 09/02/17 09/02/17 06:59 18:59 Intake Total 180 Balance 180 - Medications Medications: Current Medications Acetaminophen (Tylenol 325mg Tab) 650 mg PO Q6H PRN PRN Reason: Fever >100.4 F Enoxaparin Sodium (Lovenox) 40 mg SC DAILY [facility] PRN Reason: Protocol Last Admin: 09/01/17 09:44 Dose: 40 mg Hydrochlorothiazide (Microzide) 12.5 mg PO DAILY [facility] Last Admin: 09/01/17 09:45 Dose: 12.5 mg Piperacillin Sod/Tazobactam Sod (Zosyn 3.375 In Ns 100ml) 100 mls @ 200 mls/hr IVPB Q6 [facility] PRN Reason: Protocol Last Admin: 09/02/17 05:58 Dose: 200 mls/hr Insulin Human Regular (Humulin R Med) 0 units SC ACHS [facility] PRN Reason: Protocol Last Admin: 09/01/17 21:40 Dose: Not Given Ketorolac Tromethamine (Toradol) 30 mg IVP Q6H PRN PRN Reason: Pain, moderate (4-7) Last Admin: 08/31/17 17:34 Dose: 30 mg Lisinopril (Zestril) 2.5 mg PO DAILY [facility] Last Admin: 09/01/17 09:46 Dose: 2.5 mg Morphine Sulfate (Morphine) 2 mg IVP Q6 PRN PRN Reason: Pain, severe (8-10) Pantoprazole Sodium (Protonix Inj) 40 mg IVP DAILY [facility] Last Admin: 09/01/17 09:45 Dose: 40 mg Polyethylene Glycol (Miralax) 17 gm PO DAILY [facility] - Labs Labs: 09/02/17 06:45 09/02/17 06:45 PT 13.4 SECONDS (9.4-12.5) H 09/01/17 06:30 INR 1.16 (0.93-1.08) H 09/01/17 06:30 APTT 29.3 Seconds (25.1-36.5) 09/01/17 06:30 - Constitutional Appears: No Acute Distress - Head Exam Head Exam: ATRAUMATIC, NORMAL INSPECTION, NORMOCEPHALIC - Eye Exam Eye Exam: EOMI, Normal appearance, PERRL Pupil Exam: NORMAL ACCOMODATION, PERRL - ENT Exam ENT Exam: Mucous Membranes Moist, Normal Exam - Neck Exam Neck Exam: Full ROM, Normal Inspection. absent: Lymphadenopathy - Respiratory Exam Respiratory Exam: NORMAL BREATHING PATTERN - Cardiovascular Exam Cardiovascular Exam: REGULAR RHYTHM, +S1, +S2. absent: Murmur - GI/Abdominal Exam GI & Abdominal Exam: Soft, Tenderness, Normal Bowel Sounds. absent: Distended, Rebound Additional comments: LLQ TTP - Exam Exam: NORMAL INSPECTION - Extremities Exam Extremities Exam: Full ROM, Normal Capillary Refill, Normal Inspection. absent : Joint Swelling, Pedal Edema - Back Exam Back Exam: NORMAL INSPECTION - Neurological Exam Neurological Exam: Alert, Awake, CN II-XII Intact, Normal Gait, Oriented x3 - Psychiatric Exam Psychiatric exam: Normal Affect, Normal Mood - Skin Skin Exam: Dry, Intact, Normal Color, Warm Assessment and Plan - Assessment and Plan (Free Text) Assessment: Sigmoid diverticulitis : Imporved, no pain No leukocytosis Advance diet as tolerated to Low residue, soft diet CLear for DC for surgical standpoint with PO ABX Recommend colonoscopy in 4-6 weeks with GI Follow up with Dr. Mcginnis after colonoscopy in 4-6 weeks to discuss possible elective surgery DW
[2017-09-02] MEDS: POLYETHYLENE GLYCOL 3350 17 GM/Dose PACKET PO SCH (10:30)
[2017-09-02] MEDS: Enoxaparin 40 mg Syringe SC SCH (10:30)
--- NOTE | 2017-09-02 13:21 | CP.PCM.PN ---
<Brendan Gonzales - Last Filed: 09/02/17 13:55> Subjective - Date & Time of Evaluation Date of Evaluation: 09/02/17 Time of Evaluation: 06:35 - Subjective Subjective: Patient seen and examined at bedside in no acute distress with no acute complaints. States she made a bowel movement in the morning. Complained of mild discomfort in the morning after diet being advance to regular food. Denies fevers, chills, nausea, vomiting, diarrhea, chest pain, shortness of breath. Objective - Vital Signs/Intake and Output Vital Signs (last 24 hours): Temp Pulse Resp BP Pulse Ox 98.4 F 66 18 136/86 97 09/02/17 06:00 09/02/17 06:00 09/02/17 06:00 09/02/17 06:00 09/02/17 06:00 Intake and Output: 09/02/17 09/02/17 06:59 18:59 Intake Total 180 Balance 180 - Medications Medications: Current Medications Acetaminophen (Tylenol 325mg Tab) 650 mg PO Q6H PRN PRN Reason: Fever >100.4 F Enoxaparin Sodium (Lovenox) 40 mg SC DAILY [facility] PRN Reason: Protocol Last Admin: 09/02/17 10:30 Dose: 40 mg Hydrochlorothiazide (Microzide) 12.5 mg PO DAILY [facility] Last Admin: 09/02/17 10:30 Dose: 12.5 mg Piperacillin Sod/Tazobactam Sod (Zosyn 3.375 In Ns 100ml) 100 mls @ 200 mls/hr IVPB Q6 [facility] PRN Reason: Protocol Last Admin: 09/02/17 11:08 Dose: 200 mls/hr Insulin Human Regular (Humulin R Med) 0 units SC ACHS [facility] PRN Reason: Protocol Last Admin: 09/02/17 12:21 Dose: 3 units Ketorolac Tromethamine (Toradol) 30 mg IVP Q6H PRN PRN Reason: Pain, moderate (4-7) Last Admin: 08/31/17 17:34 Dose: 30 mg Lisinopril (Zestril) 2.5 mg PO DAILY [facility] Last Admin: 09/02/17 10:30 Dose: 2.5 mg Polyethylene Glycol (Miralax) 17 gm PO DAILY [facility] Last Admin: 09/02/17 10:30 Dose: 17 gm - Labs Labs: 09/02/17 06:45 09/02/17 06:45 PT 13.4 SECONDS (9.4-12.5) H 09/01/17 06:30 INR 1.16 (0.93-1.08) H 09/01/17 06:30 APTT 29.3 Seconds (25.1-36.5) 09/01/17 06:30 - Constitutional Appears: Non-toxic, No Acute Distress - Head Exam Head Exam: ATRAUMATIC, NORMAL INSPECTION, NORMOCEPHALIC - Eye Exam Eye Exam: EOMI, Normal appearance - ENT Exam ENT Exam: Mucous Membranes Moist, Normal Exam - Neck Exam Neck Exam: Normal Inspection - Respiratory Exam Respiratory Exam: Clear to Ausculation Bilateral, NORMAL BREATHING PATTERN - Cardiovascular Exam Cardiovascular Exam: REGULAR RHYTHM, +S1, +S2 - GI/Abdominal Exam GI & Abdominal Exam: Soft, Normal Bowel Sounds - Extremities Exam Extremities Exam: Normal Inspection - Back Exam Back Exam: NORMAL INSPECTION - Neurological Exam Neurological Exam: Alert, Awake, CN II-XII Intact - Psychiatric Exam Psychiatric exam: Normal Affect, Normal Mood - Skin Skin Exam: Intact, Normal Color, Warm Assessment and Plan - Assessment and Plan (Free Text) Assessment: Patient is a 57 year old female with a past medical history of diverticulitis, hypertension, and diabetes mellitus who presented with complaints of left lower quadrant pain which started this past Wednesday found to have acute diverticulitis. Diverticulitis -CT abdomen/pelvis reveals Sigmoid diverticulitis -Ciproflox and flagyl given in ED -Continue with Zosyn -Gen surg consulted -Morphine and Toradol for pain -complained of abdominal pain, repeat CT abdomen; liquid diet for evening, resume heart healthy diet in morning Hypertension -HCTZ -Lisinopril -BP currently stable continue to monitor NIDDM -ISS-Med -fingerstick q6h DVT/GI prophylaxis: Heparin/Protonix Dispo: discussed with patient medication and diet compliance. PT eval at some point this week prior to discharge home with follow up appt at [facility]. Discussed with patient foods that she may consume as alternatives to high carbohydrate foods such as rice, bread, and pasta which will worsen her DM II. WIll have repeat CT abdomen; pending results show no abnormalities, and patient tolerates diet advancement in the morning, patient will be discharged. <Rangasamy,Ajantha - Last Filed: 09/02/17 14:42> Objective - Vital Signs/Intake and Output Vital Signs (last 24 hours): Temp Pulse Resp BP Pulse Ox 98.4 F 66 18 136/86 97 09/02/17 06:00 09/02/17 06:00 09/02/17 06:00 09/02/17 06:00 09/02/17 06:00 Intake and Output: 09/02/17 09/02/17 06:59 18:59 Intake Total 180 840 Balance 180 840 - Medications Medications: Current Medications Acetaminophen (Tylenol 325mg Tab) 650 mg PO Q6H PRN PRN Reason: Fever >100.4 F Enoxaparin Sodium (Lovenox) 40 mg SC DAILY [facility] PRN Reason: Protocol Last Admin: 09/02/17 10:30 Dose: 40 mg Hydrochlorothiazide (Microzide) 12.5 mg PO DAILY [facility] Last Admin: 09/02/17 10:30 Dose: 12.5 mg Piperacillin Sod/Tazobactam Sod (Zosyn 3.375 In Ns 100ml) 100 mls @ 200 mls/hr IVPB Q6 [facility] PRN Reason: Protocol Last Admin: 09/02/17 11:08 Dose: 200 mls/hr Insulin Human Regular (Humulin R Med) 0 units SC ACHS [facility] PRN Reason: Protocol Last Admin: 09/02/17 12:21 Dose: 3 units Ketorolac Tromethamine (Toradol) 30 mg IVP Q6H PRN PRN Reason: Pain, moderate (4-7) Last Admin: 08/31/17 17:34 Dose: 30 mg Lisinopril (Zestril) 2.5 mg PO DAILY [facility] Last Admin: 09/02/17 10:30 Dose: 2.5 mg Polyethylene Glycol (Miralax) 17 gm PO DAILY [facility] Last Admin: 09/02/17 10:30 Dose: 17 gm - Labs Labs: 09/02/17 06:45 09/02/17 06:45 PT 13.4 SECONDS (9.4-12.5) H 09/01/17 06:30 INR 1.16 (0.93-1.08) H 09/01/17 06:30 APTT 29.3 Seconds (25.1-36.5) 09/01/17 06:30 Attending/Attestation - Attestation I have personally seen and examined this patient.: Yes I have fully participated in the care of the patient.: Yes I have reviewed all pertinent clinical information, including history, physical exam and plan: Yes Notes (Text): 09/02/17 14:40 attending note; Patient seen and examined with the resident. Patient is a 57 year old female with a past medical history of diverticulitis, hypertension, and diabetes mellitus who presented with complaints of left lower quadrant pain. CT scan is consistent with diverticulitis. on IV Zosyn. ID evaluation appreciated. Recurrent diverticulitis; patient had colonoscopy 10 years ago. Dietary education given. GI evaluation appreciated. Needs outpatient colonoscopy. Patient complaint of abdominal pain after eating soft diet. Repeat CT ordered. Monitor closely. Continue liquid diet. Surgery evaluation appreciated. Needs close outpatient follow-up with surgery upon discharge. Upon discharge patient will be referred to [facility]. 09/02/17 14:41
--- NOTE | 2017-09-02 13:53 | CP.PCM.PN ---
<Brendan Gonzales - Last Filed: 09/02/17 13:50> Subjective - Date & Time of Evaluation Date of Evaluation: 09/02/17 Time of Evaluation: 07:00 - Subjective Subjective: Patient seen and evaluated at bedside in no acute distress. Patient states pain is improving. Denies nausea, vomiting, diarrhea, fevers, chills, abdominal pain , chest pain, shortness of breath. Patient has not made a bowel movement since being admitted. Objective - Vital Signs/Intake and Output Vital Signs (last 24 hours): Temp Pulse Resp BP Pulse Ox 98.4 F 66 18 136/86 97 09/02/17 06:00 09/02/17 06:00 09/02/17 06:00 09/02/17 06:00 09/02/17 06:00 Intake and Output: 09/02/17 09/02/17 06:59 18:59 Intake Total 180 Balance 180 - Medications Medications: Current Medications Acetaminophen (Tylenol 325mg Tab) 650 mg PO Q6H PRN PRN Reason: Fever >100.4 F Enoxaparin Sodium (Lovenox) 40 mg SC DAILY [facility] PRN Reason: Protocol Last Admin: 09/02/17 10:30 Dose: 40 mg Hydrochlorothiazide (Microzide) 12.5 mg PO DAILY [facility] Last Admin: 09/02/17 10:30 Dose: 12.5 mg Piperacillin Sod/Tazobactam Sod (Zosyn 3.375 In Ns 100ml) 100 mls @ 200 mls/hr IVPB Q6 [facility] PRN Reason: Protocol Last Admin: 09/02/17 11:08 Dose: 200 mls/hr Insulin Human Regular (Humulin R Med) 0 units SC ACHS [facility] PRN Reason: Protocol Last Admin: 09/02/17 12:21 Dose: 3 units Ketorolac Tromethamine (Toradol) 30 mg IVP Q6H PRN PRN Reason: Pain, moderate (4-7) Last Admin: 08/31/17 17:34 Dose: 30 mg Lisinopril (Zestril) 2.5 mg PO DAILY [facility] Last Admin: 09/02/17 10:30 Dose: 2.5 mg Polyethylene Glycol (Miralax) 17 gm PO DAILY [facility] Last Admin: 09/02/17 10:30 Dose: 17 gm - Labs Labs: 09/02/17 06:45 09/02/17 06:45 PT 13.4 SECONDS (9.4-12.5) H 09/01/17 06:30 INR 1.16 (0.93-1.08) H 09/01/17 06:30 APTT 29.3 Seconds (25.1-36.5) 09/01/17 06:30 - Constitutional Appears: Non-toxic, No Acute Distress - Head Exam Head Exam: ATRAUMATIC, NORMAL INSPECTION, NORMOCEPHALIC - Eye Exam Eye Exam: EOMI, Normal appearance - ENT Exam ENT Exam: Mucous Membranes Moist - Neck Exam Neck Exam: Normal Inspection - Respiratory Exam Respiratory Exam: Clear to Ausculation Bilateral, NORMAL BREATHING PATTERN - Cardiovascular Exam Cardiovascular Exam: REGULAR RHYTHM, +S1, +S2 - GI/Abdominal Exam GI & Abdominal Exam: Soft, Normal Bowel Sounds - Extremities Exam Extremities Exam: Normal Inspection - Back Exam Back Exam: NORMAL INSPECTION - Neurological Exam Neurological Exam: Alert, Awake, CN II-XII Intact - Psychiatric Exam Psychiatric exam: Normal Affect, Normal Mood - Skin Skin Exam: Intact, Normal Color, Warm Assessment and Plan - Assessment and Plan (Free Text) Assessment: Patient is a 57 year old female with a past medical history of diverticulitis, hypertension, and diabetes mellitus who presented with complaints of left lower quadrant pain which started this past Wednesday found to have acute diverticulitis. Plan: Diverticulitis -CT abdomen/pelvis reveals Sigmoid diverticulitis -Ciproflox and flagyl given in ED -D/c cipro, start zosyn started today -Gen surg consulted -Morphine and Toradol for pain -Clear liquid diet later today -Lactated Ringer until patient begins eating Hypertension -HCTZ -Lisinopril -BP currently stable continue to monitor NIDDM -HgA1c 8.2 -ISS-Med -fingerstick q6h DVT/GI prophylaxis: Heparin/Protonix Dispo: discussed with patient medication and diet compliance. PT eval at some point this week prior to discharge home with follow up appt [place] [facility]. <Dagoberto Aguila - Last Filed: 09/02/17 14:40> Objective - Vital Signs/Intake and Output Vital Signs (last 24 hours): Temp Pulse Resp BP Pulse Ox 98.4 F 66 18 136/86 97 09/02/17 06:00 09/02/17 06:00 09/02/17 06:00 09/02/17 06:00 09/02/17 06:00 Intake and Output: 09/02/17 09/02/17 06:59 18:59 Intake Total 180 840 Balance 180 840 - Medications Medications: Current Medications Acetaminophen (Tylenol 325mg Tab) 650 mg PO Q6H PRN PRN Reason: Fever >100.4 F Enoxaparin Sodium (Lovenox) 40 mg SC DAILY [facility] PRN Reason: Protocol Last Admin: 09/02/17 10:30 Dose: 40 mg Hydrochlorothiazide (Microzide) 12.5 mg PO DAILY [facility] Last Admin: 09/02/17 10:30 Dose: 12.5 mg Piperacillin Sod/Tazobactam Sod (Zosyn 3.375 In Ns 100ml) 100 mls @ 200 mls/hr IVPB Q6 [facility] PRN Reason: Protocol Last Admin: 09/02/17 11:08 Dose: 200 mls/hr Insulin Human Regular (Humulin R Med) 0 units SC ACHS [facility] PRN Reason: Protocol Last Admin: 09/02/17 12:21 Dose: 3 units Ketorolac Tromethamine (Toradol) 30 mg IVP Q6H PRN PRN Reason: Pain, moderate (4-7) Last Admin: 08/31/17 17:34 Dose: 30 mg Lisinopril (Zestril) 2.5 mg PO DAILY [facility] Last Admin: 09/02/17 10:30 Dose: 2.5 mg Polyethylene Glycol (Miralax) 17 gm PO DAILY [facility] Last Admin: 09/02/17 10:30 Dose: 17 gm - Labs Labs: 09/02/17 06:45 09/02/17 06:45 PT 13.4 SECONDS (9.4-12.5) H 09/01/17 06:30 INR 1.16 (0.93-1.08) H 09/01/17 06:30 APTT 29.3 Seconds (25.1-36.5) 09/01/17 06:30 Attending/Attestation - Attestation I have personally seen and examined this patient.: Yes I have fully participated in the care of the patient.: Yes I have reviewed all pertinent clinical information, including history, physical exam and plan: Yes Notes (Text): 09/02/17 14:39 attending note; Patient seen and examined with the resident. Patient is a 57 year old female with a past medical history of diverticulitis, hypertension, and diabetes mellitus who presented with complaints of left lower quadrant pain. CT scan is consistent with diverticulitis. on IV Zosyn. ID evaluation appreciated. Recurrent diverticulitis; patient had colonoscopy 10 years ago. Dietary education given. GI evaluation appreciated. Started on clear liquid diet. Needs outpatient colonoscopy. Surgery evaluation appreciated. Needs close outpatient follow-up for recurrent diverticulitis. Upon discharge patient will be referred to [facility].
--- NOTE | 2017-09-02 15:36 | CT ---
PROCEDURE: CT Abdomen and Pelvis without intravenous contrast HISTORY: Abdominal pain COMPARISON: 08/31/2017 TECHNIQUE: CT scan of the abdomen and pelvis was performed without administration of intravenous contrast. Oral contrast was not administered. Coronal and sagittal reformatted images were obtained. Radiation dose: Total exam DLP = 964.24 mGy-cm. This CT exam was performed using one or more of the following dose reduction techniques: Automated exposure control, adjustment of the mA and/or kV according to patient size, and/or use of iterative reconstruction technique. FINDINGS: LOWER THORAX: The lung bases are clear. LIVER: There is mild hepatomegaly and diffuse fatty infiltration in the liver. No intrahepatic ductal dilatation. GALLBLADDER AND BILE DUCTS: No calcified gallstones. PANCREAS: Normal in size. No gross lesion or ductal dilatation. SPLEEN: Normal in size. ADRENALS: No discrete nodule. KIDNEYS AND URETERS: Normal in size without hydronephrosis or nephrolithiasis. VASCULATURE: No aortic aneurysm. BOWEL: The small bowel loops are normal in caliber. There is redemonstration of circumferential mural thickening in the sigmoid colon with pericolonic inflammatory changes without micro perforation or abscess. APPENDIX: Normal appendix. PERITONEUM: No free fluid. No free air. LYMPH NODES: Again seen are shortness subcentimeter retroperitoneal lymph nodes, likely reactive. BLADDER: Partially decompressed. REPRODUCTIVE: Status post hysterectomy. Stable increased density in the posterior cervix may represent a complicated/hemorrhagic nabothian cyst. BONES: No acute fracture. Diffuse bone demineralization and multilevel degenerative changes with OTHER FINDINGS: None. IMPRESSION: 1. Little interval change in acute sigmoid diverticulitis. No perforation or abscess. 2. Mild hepatomegaly fatty liver.
--- NOTE | 2017-09-02 18:02 | CP.PCM.PN ---
Subjective - Date & Time of Evaluation Date of Evaluation: 09/02/17 Time of Evaluation: 16:55 - Subjective Subjective: Infectious Disease Follow Up: September 02, 2017 57 yo female presenting with left lower quadrant pain starting on Wednesday. She rates the pain up to a 10 out of 10. The patient had nausea and three episodes of vomiting prior to coming to the hospital and had further vomiting episodes in the hospital. Abdominal pain has been improving to 4-5 out of 10 rating. Advanced to soft solid diet now. Objective - Vital Signs/Intake and Output Vital Signs (last 24 hours): Temp Pulse Resp BP Pulse Ox 98.4 F 66 18 136/86 97 09/02/17 06:00 09/02/17 06:00 09/02/17 06:00 09/02/17 06:00 09/02/17 06:00 Intake and Output: 09/02/17 09/02/17 06:59 18:59 Intake Total 180 840 Balance 180 840 - Medications Medications: Current Medications Acetaminophen (Tylenol 325mg Tab) 650 mg PO Q6H PRN PRN Reason: Fever >100.4 F Enoxaparin Sodium (Lovenox) 40 mg SC DAILY [facility] PRN Reason: Protocol Last Admin: 09/02/17 10:30 Dose: 40 mg Hydrochlorothiazide (Microzide) 12.5 mg PO DAILY [facility] Last Admin: 09/02/17 10:30 Dose: 12.5 mg Piperacillin Sod/Tazobactam Sod (Zosyn 3.375 In Ns 100ml) 100 mls @ 200 mls/hr IVPB Q6 [facility] PRN Reason: Protocol Last Admin: 09/02/17 17:31 Dose: 200 mls/hr Insulin Human Regular (Humulin R Med) 0 units SC ACHS [facility] PRN Reason: Protocol Last Admin: 09/02/17 16:50 Dose: Not Given Ketorolac Tromethamine (Toradol) 30 mg IVP Q6H PRN PRN Reason: Pain, moderate (4-7) Last Admin: 08/31/17 17:34 Dose: 30 mg Lisinopril (Zestril) 2.5 mg PO DAILY [facility] Last Admin: 09/02/17 10:30 Dose: 2.5 mg Polyethylene Glycol (Miralax) 17 gm PO DAILY [facility] Last Admin: 09/02/17 10:30 Dose: 17 gm - Labs Labs: 09/02/17 06:45 09/02/17 06:45 PT 13.4 SECONDS (9.4-12.5) H 09/01/17 06:30 INR 1.16 (0.93-1.08) H 09/01/17 06:30 APTT 29.3 Seconds (25.1-36.5) 09/01/17 06:30 - Constitutional Appears: Non-toxic, No Acute Distress, Chronically Ill - Head Exam Head Exam: ATRAUMATIC, NORMOCEPHALIC - Eye Exam Eye Exam: EOMI, PERRL Pupil Exam: NORMAL ACCOMODATION, PERRL - ENT Exam ENT Exam: Mucous Membranes Moist, Normal External Ear Exam, TM's Normal Bilaterally - Neck Exam Neck Exam: Full ROM, Normal Inspection - Respiratory Exam Respiratory Exam: Clear to Ausculation Bilateral, NORMAL BREATHING PATTERN. absent: Rales, Rhonchi, Wheezes - Cardiovascular Exam Cardiovascular Exam: REGULAR RHYTHM, RRR, +S1, +S2 - GI/Abdominal Exam GI & Abdominal Exam: Soft, Normal Bowel Sounds. absent: Distended, Tenderness - Extremities Exam Extremities Exam: Full ROM, Normal Inspection - Neurological Exam Neurological Exam: Alert, Awake, CN II-XII Intact, Oriented x3 - Psychiatric Exam Psychiatric exam: Normal Affect, Normal Mood - Skin Skin Exam: Intact, Normal Color Assessment and Plan - Assessment and Plan (Free Text) Assessment: 57 yo female with nausea, vomiting, and abdominal pain she rates as a 10 out of 10. The patient is without fevers or leukocytosis at this time. Imaging studies showing sigmoid diverticulitis. Supportive care. Continue on Zosyn. Unless there is concern for C. diff, can stop the Flagyl as Zosyn has anaerobic coverage. Patient with Hypertension, NIDDM, and history of diverticulitis. Patient appears to be improving. Pain now down to 4-5 out of 10. Thank you for allowing me to participate in the care of the patient, we will follow with you.
[2017-09-03] MEDS: Piperacillin/Tazobact 3.375 gm 100 ML IVPB SCH ×2 (05:16→12:52)
[2017-09-03 07:11] LABS: BASO # 0.01 K/mm3 (0.0-2.0); BASO % 0.1 % (0.0-3.0); EOS # 0.2 (0.0-0.7); EOS % 2.2 % (1.5-5.0); GRAN # 4.82 (1.4-6.5); GRAN % 67.3 % (50.0-68.0); HEMOGLOBIN 9.7 g/dL (12.0-16.0); LYMPH # 1.8 (1.2-3.4); LYMPH % 24.4 % (22.0-35.0); MEAN CELL VOLUME 82.1 fl (80.0-105.0); MEAN CORPUSCULAR HEMOGLOBIN 25.2 pg (25.0-35.0); MEAN CORPUSCULAR HGB CONC 30.7 g/dl (31.0-37.0); MEAN PLATELET VOLUME 10.1 fl (7.0-11.0); MONO # 0.4 (0.1-0.6); RBC 3.85 10^6/uL (3.5-6.1); RED CELL DISTRIBUTION WIDTH 15.4 % (11.5-14.5); WHITE BLOOD COUNT 7.2 10^3/ul (4.5-11.0)
[2017-09-03 07:23] LABS: ALB/GLOB RATIO 1.1 (1.1-1.8); ALBUMIN 3.5 g/dL (3.0-4.8); ALT/SGPT 34 U/L (7-56); AST/SGOT 28 U/L (14-36); BLOOD UREA NITROGEN 7 mg/dL (7-21); CALCIUM 9.5 mg/dL (8.4-10.5); GFR AFRICAN-AMERICAN > 60; GFR NON-AFRICAN AMERICAN > 60
[2017-09-03] MEDS: Insulin Reg-MEDIUM-Coverage SC SCH ×4 (09:47→21:46)
[2017-09-03] MEDS: POLYETHYLENE GLYCOL 3350 17 GM/Dose PACKET PO SCH (09:48)
[2017-09-03] MEDS: Enoxaparin 40 mg Syringe SC SCH (09:48)
--- NOTE | 2017-09-03 13:50 | CP.PCM.PN ---
<Brendan Gonzales - Last Filed: 09/03/17 15:41> Subjective - Date & Time of Evaluation Date of Evaluation: 09/03/17 Time of Evaluation: 06:00 - Subjective Subjective: Patient seen and examined at bedside in no acute distress. Patient had no complaints at the moment. States she is tolerating full diet and is moving her bowels. Admits to chills overnight. Denies shortness of breath, headache, nausea , vomiting, diarrhea. Objective - Vital Signs/Intake and Output Vital Signs (last 24 hours): Temp Pulse Resp BP Pulse Ox 98.1 F 64 18 135/83 97 09/03/17 07:30 09/03/17 07:30 09/03/17 07:30 09/03/17 07:30 09/03/17 07:30 Intake and Output: 09/03/17 09/03/17 06:59 18:59 Intake Total 180 Output Total 600 Balance -420 - Medications Medications: Current Medications Acetaminophen (Tylenol 325mg Tab) 650 mg PO Q6H PRN PRN Reason: Fever >100.4 F Last Admin: 09/02/17 22:12 Dose: 650 mg Enoxaparin Sodium (Lovenox) 40 mg SC DAILY [facility] PRN Reason: Protocol Last Admin: 09/03/17 09:48 Dose: 40 mg Hydrochlorothiazide (Microzide) 12.5 mg PO DAILY [facility] Last Admin: 09/03/17 09:48 Dose: 12.5 mg Piperacillin Sod/Tazobactam Sod (Zosyn 3.375 In Ns 100ml) 100 mls @ 200 mls/hr IVPB Q6 [facility] PRN Reason: Protocol Last Admin: 09/03/17 12:52 Dose: 200 mls/hr Insulin Human Regular (Humulin R Med) 0 units SC ACHS [facility] PRN Reason: Protocol Last Admin: 09/03/17 09:47 Dose: Not Given Ketorolac Tromethamine (Toradol) 30 mg IVP Q6H PRN PRN Reason: Pain, moderate (4-7) Last Admin: 08/31/17 17:34 Dose: 30 mg Lisinopril (Zestril) 2.5 mg PO DAILY [facility] Last Admin: 09/03/17 09:48 Dose: 2.5 mg Polyethylene Glycol (Miralax) 17 gm PO DAILY [facility] Last Admin: 09/03/17 09:48 Dose: 17 gm - Labs Labs: 09/03/17 06:57 09/03/17 06:57 PT 13.4 SECONDS (9.4-12.5) H 09/01/17 06:30 INR 1.16 (0.93-1.08) H 09/01/17 06:30 APTT 29.3 Seconds (25.1-36.5) 09/01/17 06:30 - Constitutional Appears: Non-toxic - Head Exam Head Exam: ATRAUMATIC, NORMAL INSPECTION, NORMOCEPHALIC - Eye Exam Eye Exam: EOMI, Normal appearance - ENT Exam ENT Exam: Mucous Membranes Moist, Normal Exam - Neck Exam Neck Exam: Normal Inspection - Respiratory Exam Respiratory Exam: Clear to Ausculation Bilateral, NORMAL BREATHING PATTERN. absent: Rhonchi, Wheezes - Cardiovascular Exam Cardiovascular Exam: REGULAR RHYTHM, +S1, +S2 - GI/Abdominal Exam GI & Abdominal Exam: Soft, Normal Bowel Sounds - Extremities Exam Extremities Exam: Normal Inspection - Back Exam Back Exam: NORMAL INSPECTION - Neurological Exam Neurological Exam: Alert, Awake, Oriented x3 - Psychiatric Exam Psychiatric exam: Normal Affect, Normal Mood - Skin Skin Exam: Intact, Normal Color, Warm Assessment and Plan - Assessment and Plan (Free Text) Assessment: Patient is a 57 year old female with a past medical history of diverticulitis, hypertension, and diabetes mellitus who presented with complaints of left lower quadrant pain which started this past Wednesday found to have acute diverticulitis. Diverticulitis -CT abdomen/pelvis reveals Sigmoid diverticulitis -Ciproflox and flagyl given in ED -Zosyn switched to Merrem -Morphine and Toradol for pain -Heart healthy diet in morning resumed and tolerated Hypertension -HCTZ -Lisinopril -BP currently stable continue to monitor -Meds to bed for discharge tomorrow NIDDM -ISS-Med -fingerstick q6h DVT/GI prophylaxis: Heparin/Protonix Dispo: discussed with patient medication and diet compliance. PT eval at some point this week prior to discharge home with follow up appt at [facility] clinic. Discussed with patient foods that she may consume as alternatives to high carbohydrate foods such as rice, bread, and pasta which will worsen her DM II. WIll have repeat CT abdomen; pending results show no abnormalities, and patient tolerates diet advancement in the morning, patient will be discharged. <AylaLongcorneliayinka - Last Filed: 09/03/17 17:07> Objective - Vital Signs/Intake and Output Vital Signs (last 24 hours): Temp Pulse Resp BP Pulse Ox 98.4 F 68 20 128/91 H 97 09/03/17 14:00 09/03/17 14:00 09/03/17 14:00 09/03/17 14:00 09/03/17 14:00 Intake and Output: 09/03/17 09/03/17 06:59 18:59 Intake Total 180 480 Output Total 600 Balance -420 480 - Medications Medications: Current Medications Acetaminophen (Tylenol 325mg Tab) 650 mg PO Q6H PRN PRN Reason: Fever >100.4 F Last Admin: 09/02/17 22:12 Dose: 650 mg Enoxaparin Sodium (Lovenox) 40 mg SC DAILY [facility] PRN Reason: Protocol Last Admin: 09/03/17 09:48 Dose: 40 mg Hydrochlorothiazide (Microzide) 12.5 mg PO DAILY [facility] Last Admin: 09/03/17 09:48 Dose: 12.5 mg Meropenem 500 mg/ Sodium (Chloride) 50 mls @ 100 mls/hr IVPB Q8 [facility] PRN Reason: Protocol Stop: 09/03/17 22:29 Last Admin: 09/03/17 16:56 Dose: 100 mls/hr Insulin Human Regular (Humulin R Med) 0 units SC ACHS [facility] PRN Reason: Protocol Last Admin: 09/03/17 16:57 Dose: Not Given Ketorolac Tromethamine (Toradol) 30 mg IVP Q6H PRN PRN Reason: Pain, moderate (4-7) Last Admin: 08/31/17 17:34 Dose: 30 mg Lisinopril (Zestril) 2.5 mg PO DAILY [facility] Last Admin: 09/03/17 09:48 Dose: 2.5 mg Polyethylene Glycol (Miralax) 17 gm PO DAILY [facility] Last Admin: 09/03/17 09:48 Dose: 17 gm - Labs Labs: 09/03/17 06:57 09/03/17 06:57 PT 13.4 SECONDS (9.4-12.5) H 09/01/17 06:30 INR 1.16 (0.93-1.08) H 09/01/17 06:30 APTT 29.3 Seconds (25.1-36.5) 09/01/17 06:30 Attending/Attestation - Attestation I have personally seen and examined this patient.: Yes I have fully participated in the care of the patient.: Yes I have reviewed all pertinent clinical information, including history, physical exam and plan: Yes Notes (Text): 09/03/17 17:06 attending note; Patient seen and examined with the resident. Patient is a 57 year old female with a past medical history of diverticulitis, hypertension, and diabetes mellitus who presented with complaints of left lower quadrant pain. CT scan is consistent with diverticulitis. on IV Zosyn. ID evaluation appreciated. Recurrent diverticulitis; patient had colonoscopy 10 years ago. Dietary education given. GI evaluation appreciated. Needs outpatient colonoscopy. Patient complaint of abdominal pain after eating soft diet yesterday .Repeat CT did not show any significant change. Patient had MAXIMUM TEMPERATURE of 100.4 last night. Currently afebrile. Tolerating diet. Surgery evaluation appreciated. Needs close outpatient follow-up with surgery upon discharge. Possible discharge home tomorrow if clinically stable. Upon discharge patient will be referred to [facility] clinic.
[2017-09-03] MEDS ORDERED: Meropenem 500 MG in Sodium Chloride 0.9% 50 ML IVPB SCH (15:30)
[2017-09-03 15:38] VITALS: RESP 20
--- NOTE | 2017-09-03 17:47 | CP.PCM.PN ---
Subjective - Date & Time of Evaluation Date of Evaluation: 09/03/17 Time of Evaluation: 13:30 - Subjective Subjective: Infectious Disease Follow Up: September 03, 2017 57 yo female presenting with left lower quadrant pain starting on Wednesday. She rates the pain up to a 10 out of 10. The patient had nausea and three episodes of vomiting prior to coming to the hospital and had further vomiting episodes in the hospital. Abdominal pain has been improving to 4-5 out of 10 rating. Advanced to soft solid diet now. Fever up to 100.4 F last night. Objective - Vital Signs/Intake and Output Vital Signs (last 24 hours): Temp Pulse Resp BP Pulse Ox 98.4 F 68 20 128/91 H 97 09/03/17 14:00 09/03/17 14:00 09/03/17 14:00 09/03/17 14:00 09/03/17 14:00 Intake and Output: 09/03/17 09/03/17 06:59 18:59 Intake Total 180 480 Output Total 600 Balance -420 480 - Medications Medications: Current Medications Acetaminophen (Tylenol 325mg Tab) 650 mg PO Q6H PRN PRN Reason: Fever >100.4 F Last Admin: 09/02/17 22:12 Dose: 650 mg Enoxaparin Sodium (Lovenox) 40 mg SC DAILY [facility] PRN Reason: Protocol Last Admin: 09/03/17 09:48 Dose: 40 mg Hydrochlorothiazide (Microzide) 12.5 mg PO DAILY [facility] Last Admin: 09/03/17 09:48 Dose: 12.5 mg Meropenem 500 mg/ Sodium (Chloride) 50 mls @ 100 mls/hr IVPB Q8 [facility] PRN Reason: Protocol Stop: 09/03/17 22:29 Last Admin: 09/03/17 16:56 Dose: 100 mls/hr Insulin Human Regular (Humulin R Med) 0 units SC ACHS [facility] PRN Reason: Protocol Last Admin: 09/03/17 16:57 Dose: Not Given Ketorolac Tromethamine (Toradol) 30 mg IVP Q6H PRN PRN Reason: Pain, moderate (4-7) Last Admin: 08/31/17 17:34 Dose: 30 mg Lisinopril (Zestril) 2.5 mg PO DAILY [facility] Last Admin: 09/03/17 09:48 Dose: 2.5 mg Polyethylene Glycol (Miralax) 17 gm PO DAILY [facility] Last Admin: 09/03/17 09:48 Dose: 17 gm - Labs Labs: 09/03/17 06:57 09/03/17 06:57 PT 13.4 SECONDS (9.4-12.5) H 09/01/17 06:30 INR 1.16 (0.93-1.08) H 09/01/17 06:30 APTT 29.3 Seconds (25.1-36.5) 09/01/17 06:30 - Constitutional Appears: Non-toxic, No Acute Distress, Chronically Ill - Head Exam Head Exam: ATRAUMATIC, NORMOCEPHALIC - Eye Exam Eye Exam: EOMI, PERRL Pupil Exam: NORMAL ACCOMODATION, PERRL - ENT Exam ENT Exam: Mucous Membranes Moist, Normal External Ear Exam, TM's Normal Bilaterally - Neck Exam Neck Exam: Full ROM, Normal Inspection - Respiratory Exam Respiratory Exam: Clear to Ausculation Bilateral, NORMAL BREATHING PATTERN. absent: Rales, Rhonchi, Wheezes - Cardiovascular Exam Cardiovascular Exam: REGULAR RHYTHM, RRR, +S1, +S2 - GI/Abdominal Exam GI & Abdominal Exam: Soft, Normal Bowel Sounds. absent: Distended, Tenderness - Extremities Exam Extremities Exam: Full ROM, Normal Inspection - Neurological Exam Neurological Exam: Alert, Awake, CN II-XII Intact, Oriented x3 - Psychiatric Exam Psychiatric exam: Normal Affect, Normal Mood - Skin Skin Exam: Intact, Normal Color Assessment and Plan - Assessment and Plan (Free Text) Assessment: 57 yo female with nausea, vomiting, and abdominal pain she rates as a 10 out of 10. The patient is without fevers or leukocytosis at this time. Imaging studies showing sigmoid diverticulitis. Supportive care. Continue on Zosyn. Unless there is concern for C. diff, can stop the Flagyl as Zosyn has anaerobic coverage. Patient with Hypertension, NIDDM, and history of diverticulitis. Patient appears to be improving. Pain now down to 4-5 out of 10. Fever last night up to 100.4 F. Otherwise, she is improving on the whole. Antibiotics upgraded to Meropenem. Thank you for allowing me to participate in the care of the patient, we will follow with you.
[2017-09-03] MEDS: Meropenem 500 MG in Sodium Chloride 0.9% 50 ML IVPB SCH (21:48)
[2017-09-03 21:55] VITALS: TEMP 98.5; O2SAT 98
[2017-09-04] MEDS: Meropenem 500 MG in Sodium Chloride 0.9% 50 ML IVPB SCH ×2 (05:45→13:34)
[2017-09-04 07:20] LABS: BASO # 0.01 K/mm3 (0.0-2.0); BASO % 0.2 % (0.0-3.0); EOS # 0.2 (0.0-0.7); GRAN # 3.72 (1.4-6.5); GRAN % 66.3 % (50.0-68.0); HEMOGLOBIN 10.7 g/dL (12.0-16.0); LYMPH # 1.3 (1.2-3.4); LYMPH % 23.9 % (22.0-35.0); MEAN CELL VOLUME 81.5 fl (80.0-105.0); MEAN CORPUSCULAR HEMOGLOBIN 25.1 pg (25.0-35.0); MEAN CORPUSCULAR HGB CONC 30.7 g/dl (31.0-37.0); MONO # 0.4 (0.1-0.6); MONO % 6.6 % (1.0-6.0); RBC 4.27 10^6/uL (3.5-6.1); RED CELL DISTRIBUTION WIDTH 15.3 % (11.5-14.5); WHITE BLOOD COUNT 5.6 10^3/ul (4.5-11.0)
[2017-09-04 07:29] VITALS: BP 142/85; PULSE 72
[2017-09-04] MEDS: Insulin Reg-MEDIUM-Coverage SC SCH ×2 (07:42→12:03)
[2017-09-04 08:03] LABS: ALB/GLOB RATIO 1.1 (1.1-1.8); ALBUMIN 3.8 g/dL (3.0-4.8); ALT/SGPT 34 U/L (7-56); AST/SGOT 31 U/L (14-36); BLOOD UREA NITROGEN 10 mg/dL (7-21); GFR AFRICAN-AMERICAN > 60; GFR NON-AFRICAN AMERICAN > 60
[2017-09-04] MEDS: Enoxaparin 40 mg Syringe SC SCH (09:41)
[2017-09-04] MEDS: POLYETHYLENE GLYCOL 3350 17 GM/Dose PACKET PO SCH (09:41)
--- NOTE | 2017-09-04 09:47 | CP.PCM.DIS ---
<Hunter Ortiz - Last Filed: 09/05/17 12:55> Provider - Provider Date of Admission: 08/31/17 09:25 Attending physician: Dagoberto Aguila MD Primary care physician: Jossy LU Time Spent in preparation of Discharge (in minutes): 75 Hospital Course - Lab Results Lab Results: Most Recent Lab Values WBC 5.6 10^3/ul (4.5-11.0) D 09/04/17 07:00 RBC 4.27 10^6/uL (3.5-6.1) 09/04/17 07:00 Hgb 10.7 g/dL (12.0-16.0) L 09/04/17 07:00 Hct 34.8 % (36.0-48.0) L 09/04/17 07:00 MCV 81.5 fl (80.0-105.0) 09/04/17 07:00 MCH 25.1 pg (25.0-35.0) 09/04/17 07:00 MCHC 30.7 g/dl (31.0-37.0) L 09/04/17 07:00 RDW 15.3 % (11.5-14.5) H 09/04/17 07:00 Plt Count 198 10^3/uL (120.0-450.0) 09/04/17 07:00 MPV 10.0 fl (7.0-11.0) 09/04/17 07:00 Gran % 66.3 % (50.0-68.0) 09/04/17 07:00 Lymph % (Auto) 23.9 % (22.0-35.0) 09/04/17 07:00 Lewis % (Auto) 6.6 % (1.0-6.0) H 09/04/17 07:00 Eos % (Auto) 3.0 % (1.5-5.0) 09/04/17 07:00 Baso % (Auto) 0.2 % (0.0-3.0) 09/04/17 07:00 Gran # 3.72 (1.4-6.5) 09/04/17 07:00 Lymph # (Auto) 1.3 (1.2-3.4) 09/04/17 07:00 Lewis # (Auto) 0.4 (0.1-0.6) 09/04/17 07:00 Eos # (Auto) 0.2 (0.0-0.7) 09/04/17 07:00 Baso # (Auto) 0.01 K/mm3 (0.0-2.0) 09/04/17 07:00 PT 13.4 SECONDS (9.4-12.5) H 09/01/17 06:30 INR 1.16 (0.93-1.08) H 09/01/17 06:30 APTT 29.3 Seconds (25.1-36.5) 09/01/17 06:30 Sodium 139 mmol/L (132-148) 09/04/17 07:00 Potassium 4.2 mmol/L (3.6-5.0) 09/04/17 07:00 Chloride 102 mmol/L (98-107) 09/04/17 07:00 Carbon Dioxide 29 mmol/L (21-33) 09/04/17 07:00 Anion Gap 13 (10-20) 09/04/17 07:00 BUN 10 mg/dL (7-21) 09/04/17 07:00 Creatinine 0.7 mg/dl (0.7-1.2) 09/04/17 07:00 Est GFR ( Amer) > 60 09/04/17 07:00 Est GFR (Non-Af Amer) > 60 09/04/17 07:00 POC Glucose (mg/dL) 147 mg/dL (65-110) H 09/04/17 07:14 Random Glucose 170 mg/dL (70-110) H 09/04/17 07:00 Hemoglobin A1c 8.2 % (4.2-6.5) H 09/01/17 06:30 Calcium 10.0 mg/dL (8.4-10.5) 09/04/17 07:00 Phosphorus 4.2 mg/dL (2.5-4.5) 09/01/17 06:30 Magnesium 1.7 mg/dL (1.7-2.2) 09/01/17 06:30 Total Bilirubin 0.7 mg/dL (0.2-1.3) 09/04/17 07:00 AST 31 U/L (14-36) 09/04/17 07:00 ALT 34 U/L (7-56) 09/04/17 07:00 Alkaline Phosphatase 81 U/L (38-126) 09/04/17 07:00 Total Protein 7.2 g/dL (5.8-8.3) 09/04/17 07:00 Albumin 3.8 g/dL (3.0-4.8) 09/04/17 07:00 Globulin 3.4 gm/dL 09/04/17 07:00 Albumin/Globulin Ratio 1.1 (1.1-1.8) 09/04/17 07:00 Triglycerides 98 mg/dL (35-160) 09/01/17 06:30 Cholesterol 154 mg/dL (130-200) 09/01/17 06:30 LDL Cholesterol Direct 99 mg/dL (0-129) 09/01/17 06:30 HDL Cholesterol 36 mg/dL (29-60) 09/01/17 06:30 Lipase 98 U/L (23-300) 08/31/17 07:00 TSH 3rd Generation 2.21 mIU/mL (0.46-4.68) 09/01/17 08:00 Urine Color Yellow (YELLOW) 08/31/17 09:00 Urine Appearance Clear (CLEAR) 08/31/17 09:00 Urine pH 6.5 (4.7-8.0) 08/31/17 09:00 Ur Specific Mcbh [place] 1.010 (1.005-1.035) 08/31/17 09:00 Urine Protein Negative mg/dL (<30 mg/dL) 08/31/17 09:00 Urine Glucose (UA) 250 mg/dL (NEGATIVE) H 08/31/17 09:00 Urine Ketones Negative mg/dL (NEGATIVE) 08/31/17 09:00 Urine Blood Negative (NEGATIVE) 08/31/17 09:00 Urine Nitrate Negative (NEGATIVE) 08/31/17 09:00 Urine Bilirubin Negative (NEGATIVE) 08/31/17 09:00 Urine Urobilinogen 0.2 E.U./dL (<1 E.U./dL) 08/31/17 09:00 Ur Leukocyte Esterase Negative Lynn/uL (NEGATIVE) 08/31/17 09:00 - Hospital Course Hospital Course: Patient is a 57 year old female with a past medical history of diverticulitis, hypertension, and diabetes mellitus who presented with complaints of left lower quadrant pain which started this past Wednesday found to have acute diverticulitis. CT abdomen and pelvis revealed Sigmoid diverticulitis. Patient was made NPO and diet was slowly advanced tolerated. She was started on Ciprofloxacin and flagyl. She was also on zosyn which was switched to Merrem. Patient was given Morphine and Toradol for pain. For patients hypertension she was given HCTZ and lisinopril. We discussed with patient medication and diet compliance. Patient was told to follow up an appt at [facility]. Discussed with patient foods that she may consume as alternatives to high carbohydrate foods such as rice, bread, and pasta which will worsen her DM II. She was given prescriptions for HTN medicaions and given abx to continue. Discharge Exam - Head Exam Head Exam: ATRAUMATIC, NORMOCEPHALIC - Eye Exam Eye Exam: EOMI, Normal appearance - Respiratory Exam Respiratory Exam: Clear to PA & Lateral, NORMAL BREATHING PATTERN - Cardiovascular Exam Cardiovascular Exam: REGULAR RHYTHM - GI/Abdominal Exam GI & Abdominal Exam: Normal Bowel Sounds. absent: Tenderness - Neurological Exam Neurological exam: Alert, CN II-XII Intact, Oriented x3 Discharge Plan - Discharge Medications Prescriptions: Ciprofloxacin HCl [Cipro] 500 mg PO BID #20 tablet hydroCHLOROthiazide [Microzide] 12.5 mg PO DAILY 14 Days #14 cap Hydrochlorothiazide [Microzide] 12.5 mg PO DAILY #14 cap Lisinopril [Zestril] 2.5 mg PO DAILY #14 tab Lisinopril [Zestril] 2.5 mg PO DAILY #14 tab metFORMIN [glucOPHAGE] 500 mg PO BID #60 tab Metronidazole [Flagyl] 500 mg PO Q6H #40 tablet - Follow Up Plan Condition: STABLE Disposition: HOME/ ROUTINE Instructions: Urinary Tract Infections in Adults, Low Fiber Diet, Diverticulitis (DC), Acute Pain, Adult (DC), Influenza Virus Vaccine ( Recombinant) Additional Instructions: 1. Please follow up with your PMD Dr. Gannon within 1 week regarding this admission. 2.. For the coming 2 weeks, eat low residual food, such as soft mash potatoes. Avoid high fiber food for 2 weeks. The purpose is to let the bowel rest while on treatment of antibiotics. 3. Recommend colonoscopy in 6-8 weeks with GI, wine merchant, Dr. Basurto, at the GI [facility] at [facility]: - How to make an appointment to go to the GI clinic? - Call [phone]. Leave a message on the answer machine. Tell them your name, telephone number, and ask for an appointment for the GI clinic. - You will be called back in 48 hours 4. Follow up with Dr. Mcginnis (Surgeon) after colonoscopy, if needed, to discuss possible elective surgery 5. Please fill and take medications as prescribed. Medications will be delivered to bedside. 6. Be sure to take antibiotics with food Referrals: [facility] [Outside] Gordon Mcginnis MD [Staff Provider] - Bernardo Brantley MD [Staff Provider] - Jossy Gannon APN-C [Primary Care Provider] - <Dagoberto Aguila - Last Filed: 09/05/17 13:16> Provider - Provider Date of Admission: 08/31/17 09:25 Attending physician: Dagoberto Aguila MD Primary care physician: Jossy LU Hospital Course - Lab Results Lab Results: Most Recent Lab Values WBC 5.6 10^3/ul (4.5-11.0) D 09/04/17 07:00 RBC 4.27 10^6/uL (3.5-6.1) 09/04/17 07:00 Hgb 10.7 g/dL (12.0-16.0) L 09/04/17 07:00 Hct 34.8 % (36.0-48.0) L 09/04/17 07:00 MCV 81.5 fl (80.0-105.0) 09/04/17 07:00 MCH 25.1 pg (25.0-35.0) 09/04/17 07:00 MCHC 30.7 g/dl (31.0-37.0) L 09/04/17 07:00 RDW 15.3 % (11.5-14.5) H 09/04/17 07:00 Plt Count 198 10^3/uL (120.0-450.0) 09/04/17 07:00 MPV 10.0 fl (7.0-11.0) 09/04/17 07:00 Gran % 66.3 % (50.0-68.0) 09/04/17 07:00 Lymph % (Auto) 23.9 % (22.0-35.0) 09/04/17 07:00 Lewis % (Auto) 6.6 % (1.0-6.0) H 09/04/17 07:00 Eos % (Auto) 3.0 % (1.5-5.0) 09/04/17 07:00 Baso % (Auto) 0.2 % (0.0-3.0) 09/04/17 07:00 Gran # 3.72 (1.4-6.5) 09/04/17 07:00 Lymph # (Auto) 1.3 (1.2-3.4) 09/04/17 07:00 Lewis # (Auto) 0.4 (0.1-0.6) 09/04/17 07:00 Eos # (Auto) 0.2 (0.0-0.7) 09/04/17 07:00 Baso # (Auto) 0.01 K/mm3 (0.0-2.0) 09/04/17 07:00 PT 13.4 SECONDS (9.4-12.5) H 09/01/17 06:30 INR 1.16 (0.93-1.08) H 09/01/17 06:30 APTT 29.3 Seconds (25.1-36.5) 09/01/17 06:30 Sodium 139 mmol/L (132-148) 09/04/17 07:00 Potassium 4.2 mmol/L (3.6-5.0) 09/04/17 07:00 Chloride 102 mmol/L (98-107) 09/04/17 07:00 Carbon Dioxide 29 mmol/L (21-33) 09/04/17 07:00 Anion Gap 13 (10-20) 09/04/17 07:00 BUN 10 mg/dL (7-21) 09/04/17 07:00 Creatinine 0.7 mg/dl (0.7-1.2) 09/04/17 07:00 Est GFR ( Amer) > 60 09/04/17 07:00 Est GFR (Non-Af Amer) > 60 09/04/17 07:00 POC Glucose (mg/dL) 165 mg/dL (65-110) H 09/04/17 11:11 Random Glucose 170 mg/dL (70-110) H 09/04/17 07:00 Hemoglobin A1c 8.2 % (4.2-6.5) H 09/01/17 06:30 Calcium 10.0 mg/dL (8.4-10.5) 09/04/17 07:00 Phosphorus 4.2 mg/dL (2.5-4.5) 09/01/17 06:30 Magnesium 1.7 mg/dL (1.7-2.2) 09/01/17 06:30 Total Bilirubin 0.7 mg/dL (0.2-1.3) 09/04/17 07:00 AST 31 U/L (14-36) 09/04/17 07:00 ALT 34 U/L (7-56) 09/04/17 07:00 Alkaline Phosphatase 81 U/L (38-126) 09/04/17 07:00 Total Protein 7.2 g/dL (5.8-8.3) 09/04/17 07:00 Albumin 3.8 g/dL (3.0-4.8) 09/04/17 07:00 Globulin 3.4 gm/dL 09/04/17 07:00 Albumin/Globulin Ratio 1.1 (1.1-1.8) 09/04/17 07:00 Triglycerides 98 mg/dL (35-160) 09/01/17 06:30 Cholesterol 154 mg/dL (130-200) 09/01/17 06:30 LDL Cholesterol Direct 99 mg/dL (0-129) 09/01/17 06:30 HDL Cholesterol 36 mg/dL (29-60) 09/01/17 06:30 Lipase 98 U/L (23-300) 08/31/17 07:00 TSH 3rd Generation 2.21 mIU/mL (0.46-4.68) 09/01/17 08:00 Urine Color Yellow (YELLOW) 08/31/17 09:00 Urine Appearance Clear (CLEAR) 08/31/17 09:00 Urine pH 6.5 (4.7-8.0) 08/31/17 09:00 Ur Specific Mcbh [place] 1.010 (1.005-1.035) 08/31/17 09:00 Urine Protein Negative mg/dL (<30 mg/dL) 08/31/17 09:00 Urine Glucose (UA) 250 mg/dL (NEGATIVE) H 08/31/17 09:00 Urine Ketones Negative mg/dL (NEGATIVE) 08/31/17 09:00 Urine Blood Negative (NEGATIVE) 08/31/17 09:00 Urine Nitrate Negative (NEGATIVE) 08/31/17 09:00 Urine Bilirubin Negative (NEGATIVE) 08/31/17 09:00 Urine Urobilinogen 0.2 E.U./dL (<1 E.U./dL) 08/31/17 09:00 Ur Leukocyte Esterase Negative Lynn/uL (NEGATIVE) 08/31/17 09:00 Attending/Attestation - Attestation I have personally seen and examined this patient.: Yes I have fully participated in the care of the patient.: Yes I have reviewed all pertinent clinical information, including history, physical exam and plan: Yes Notes (Text): 09/05/17 13:14 attending note; Patient seen and examined with the resident. Patient is a 57 year old female with a past medical history of diverticulitis, hypertension, and diabetes mellitus who presented with complaints of left lower quadrant pain. CT scan is consistent with diverticulitis. Treated with IV Zosyn. ID evaluation appreciated. Recurrent diverticulitis; patient had colonoscopy 10 years ago. Dietary education given. GI evaluation appreciated. Needs outpatient colonoscopy. Repeat CT did not show any significant change. Currently afebrile. Tolerating diet. Surgery evaluation appreciated. Needs close outpatient follow-up with surgery upon discharge. discharge home today. Upon discharge patient will be referred to [facility] [place].
--- NOTE | 2017-09-04 16:32 | CP.PCM.PN ---
Subjective - Date & Time of Evaluation Date of Evaluation: 09/04/17 Time of Evaluation: 12:00 - Subjective Subjective: Infectious Disease Follow Up: September 04, 2017 57 yo female presenting with left lower quadrant pain starting on Wednesday. She rates the pain up to a 10 out of 10. The patient had nausea and three episodes of vomiting prior to coming to the hospital and had further vomiting episodes in the hospital. Abdominal pain has been improving to 3 out of 10 rating. Advanced to soft solid diet now. Afebrile the last 24 hours. Objective - Vital Signs/Intake and Output Vital Signs (last 24 hours): Temp Pulse Resp BP Pulse Ox 98.5 F 72 20 142/85 98 09/04/17 06:00 09/04/17 09:41 09/04/17 06:00 09/04/17 09:41 09/04/17 06:00 Intake and Output: 09/04/17 09/04/17 06:59 18:59 Intake Total 0 Balance 0 - Labs Labs: 09/04/17 07:00 09/04/17 07:00 PT 13.4 SECONDS (9.4-12.5) H 09/01/17 06:30 INR 1.16 (0.93-1.08) H 09/01/17 06:30 APTT 29.3 Seconds (25.1-36.5) 09/01/17 06:30 - Constitutional Appears: Non-toxic, No Acute Distress - Head Exam Head Exam: ATRAUMATIC, NORMOCEPHALIC - Eye Exam Eye Exam: EOMI, PERRL Pupil Exam: NORMAL ACCOMODATION, PERRL - ENT Exam ENT Exam: Mucous Membranes Moist, Normal External Ear Exam, TM's Normal Bilaterally - Neck Exam Neck Exam: Full ROM, Normal Inspection - Respiratory Exam Respiratory Exam: Clear to Ausculation Bilateral, NORMAL BREATHING PATTERN. absent: Rales, Rhonchi, Wheezes - Cardiovascular Exam Cardiovascular Exam: REGULAR RHYTHM, RRR, +S1, +S2 - GI/Abdominal Exam GI & Abdominal Exam: Soft, Normal Bowel Sounds. absent: Distended, Tenderness - Extremities Exam Extremities Exam: Full ROM, Normal Inspection - Neurological Exam Neurological Exam: Alert, Awake, CN II-XII Intact, Oriented x3 - Psychiatric Exam Psychiatric exam: Normal Affect, Normal Mood - Skin Skin Exam: Intact, Normal Color Assessment and Plan - Assessment and Plan (Free Text) Assessment: 57 yo female with nausea, vomiting, and abdominal pain she rates as a 10 out of 10. The patient is without fevers or leukocytosis at this time. Imaging studies showing sigmoid diverticulitis. Supportive care. Continue on Zosyn. Unless there is concern for C. diff, can stop the Flagyl as Zosyn has anaerobic coverage. Patient with Hypertension, NIDDM, and history of diverticulitis. Patient appears to be improving. Pain now down to 4-5 out of 10. Fever last night up to 100.4 F. Otherwise, she is improving on the whole. Antibiotics upgraded to Meropenem. Afebrile now. No leukocytosis. Can consider use of Cipro and Flagyl when ready for discharge. Thank you for allowing me to participate in the care of the patient, we will follow with you.
== END 2017-09-04 13:54 | disposition home or self-care (01) | DRG 392 ==
LOC: ED 06:33 → ERH 09:25 → 5RSO 11:44
PROVIDERS: ADMIT Internal Medicine; ATTEND Internal Medicine
DX: K57.32 Diverticulitis of large intestine without perforation or abscess without bleeding (principal); B96.20 Unspecified Escherichia coli [E. coli] as the cause of diseases classified elsewhere; E11.9 Type 2 diabetes mellitus without complications; I10 Essential (primary) hypertension; Z79.84 Long term (current) use of oral hypoglycemic drugs; Z90.710 Acquired absence of both cervix and uterus; Z91.012 Allergy to eggs; Z87.892 Personal history of anaphylaxis

== ENCOUNTER 2017-11-08 17:06 | Inpatient (IN) | payer MEDICAID, OTHER, SELFPAY ==
[2017-11-08 17:06] VITALS: BMI 39.6
[2017-11-08] MEDS ORDERED: Sodium Chloride 0.9% 500 ML IV STA (17:38)
[2017-11-08] MEDS ORDERED: Morphine 4 mg/ml ISec IVP STA (17:43)
--- NOTE | 2017-11-08 17:52 | ED PDOC ---
Arrival/HPI - General Historian: Patient - History of Present Illness Symptom Onset: Gradual Symptom Course: Worsening Quality: Stabbing, Cramping Severity Level: 10 - General Chief Complaint: Abdominal Pain Time Seen by Provider: 11/08/17 17:37 - History of Present Illness Narrative History of Present Illness (Text): 11/08/17 17:46 57-year-old female with a history of diverticulitis presents today with a 3 day history of left lower quadrant abdominal pain. Patient with a history of diverticulitis in August. Patient states she never followed up after her admission to the hospital. Patient states she was doing much better until 3 days ago with a sharp stabbing pain started again in the left lower quadrant of the abdomen. Patient denies diarrhea. She is complaining of nausea no vomiting. She is complaining of chills at home but states she has not taken her temperature. She denies dizziness or weakness. Taking Motrin for pain without improvement. Complaining of decreased appetite. Patient states this is the same pain she was having back in August when she was diagnosed with diverticulitis. No other complaints (CaiaSandee T) Past Medical History - Provider Review Nursing Documentation Reviewed: Yes - Travel History Have you recently traveled outside [place] w/in the past 3 mons?: No - Infectious Disease Hx of Infectious Diseases: None - Cardiac Hx Cardiac Disorders: No Hx Hypertension: Yes - Pulmonary Hx Respiratory Disorders: No - Neurological Hx Neurological Disorder: No - HEENT Hx HEENT Disorder: No - Renal Hx Renal Disorder: No - Endocrine/Metabolic Hx Endocrine Disorders: No Hx Diabetes Mellitus Type 2: Yes - Hematological/Oncological Hx Blood Disorders: No - Integumentary Hx Dermatological Disorder: No - Musculoskeletal/Rheumatological Hx Musculoskeletal Disorders: No Hx Falls: No - Gastrointestinal Hx Gastrointestinal Disorders: Yes Hx Diverticulitis: Yes - Genitourinary/Gynecological Hx Genitourinary Disorders: No - Psychiatric Hx Psychophysiologic Disorder: No Hx Depression: No Hx Emotional Abuse: No Hx Physical Abuse: No Hx Substance Use: No - Surgical History Hx Hysterectomy: Yes (PARTIAL) - Anesthesia Hx Anesthesia: No - Suicidal Assessment Feels Threatened In Home Enviroment: No Family/Social History - Physician Review Nursing Documentation Reviewed: Yes Family/Social History: Unknown Family HX Smoking Status: Never Smoked Hx Alcohol Use: No Hx Substance Use: No Allergies/Home Meds Allergies/Adverse Reactions: Allergies EGG Allergy (Verified 11/08/17 17:21) ANAPHYLAXIS Home Medications: Home Meds Medication Instructions Recorded Confirmed Ergocalciferol (Vitamin D2) 50,000 units PO QD7 08/31/17 11/08/17 [Vitamin D2] Multivitamin [Multivitamins] 1 each PO DAILY 08/31/17 11/08/17 Review of Systems - Review of Systems Constitutional: Other (chills). absent: Fatigue, Fevers Respiratory: absent: SOB, Cough Cardiovascular: absent: Chest Pain, Palpitations Gastrointestinal: Abdominal Pain, Nausea, Appetite Changes. absent: Constipation, Diarrhea, Vomiting Genitourinary Female: absent: Dysuria, Frequency, Hematuria Musculoskeletal: Back Pain. absent: Arthralgias, Neck Pain Skin: absent: Rash, Pruritis Neurological: absent: Headache, Dizziness Psychiatric: absent: Anxiety, Depression Physical Exam Vital Signs Reviewed: Yes Temperature: Afebrile Blood Pressure: Normal Pulse: Regular Respiratory Rate: Normal Appearance: Positive for: Well-Appearing, Non-Toxic, Uncomfortable Pain Distress: Mild Mental Status: Positive for: Alert and Oriented X 3 - Systems Exam Head: Present: Atraumatic Neck: Present: Normal Range of Motion Respiratory/Chest: Present: Clear to Auscultation, Good Air Exchange. No: Respiratory Distress, Accessory Muscle Use Cardiovascular: Present: Regular Rate and Rhythm, Normal S1, S2. No: Murmurs Abdomen: Present: Tenderness (LLQ tenderness LUQ tenderness), Guarding. No: Distention, Peritoneal Signs, Rebound, McBurney's Point Tender Back: Present: Normal Inspection. No: CVA Tenderness Upper Extremity: Present: Normal ROM Lower Extremity: Present: Normal ROM Neurological: Present: GCS=15, Speech Normal Skin: Present: Warm, Dry, Normal Color. No: Rashes Psychiatric: Present: Alert, Oriented x 3 Vital Signs Temp Pulse Resp BP Pulse Ox 11/08/17 21:00 98 F 89 18 144/80 99 11/08/17 17:17 98.1 F 93 H 18 153/80 H 100 Medical Decision Making ED Course and Treatment: 11/08/17 20:27 Case endorsed to me by PATIENCE Ignacio, pending CT results, re-evaluation and disposition. Report Date: 11/08/17 20:38 EXAM: CT Abdomen and Pelvis With Intravenous Contrast Dictated and Authenticated by: Bebeto Lester MD IMPRESSION: 1. There are small foci of extraluminal air within the adjacent pericolonic mesenteric fat, consistent with a contained diverticular perforation. As an underlying malignancy cannot be entirely excluded, a follow-up examination after a course of treatment is recommended if clinically warranted. 2. Small amount of free fluid in the left lower quadrant/pelvis. 3. Hepatomegaly. Hepatic steatosis. Case discussed with surgeon Dr. Velazquez, states he will evaluate patient at bedside. 11/08/17 21:[address] Aguila, plan is to admit to [facility]. (Deepak Pete DO) 11/08/17 17:54 Patient is nontoxic well appearing with stable vital signs presenting with severe LLQ abdominal pain. hx of diverticulitis. pt given morphine and zofran for pain/nausea. 500cc NS iv bolus given cxr; no free air CBC wnl CMP glucose; 220 Lipase wnl Urinalysis: wnl CAT scan: pending pt reassessment; pt feeling better after morphine; resting comfortably. still with LLQ tenderness 11/08/17 20:17 case signed out to dr. pete pending CT results, re-evaluation and disposition. (Sandee Cardona) - Lab Interpretations Lab Results: 11/08/17 18:30 11/08/17 18:30 Lab Results 11/08/17 18:30: WBC 10.7 D, RBC 4.75, Hgb 12.0, Hct 37.8, MCV 79.6 L, MCH 25.3 , MCHC 31.7, RDW 14.8 H, Plt Count 232, MPV 9.8, Gran % 77.6 H, Lymph % (Auto) 16.8 L, Ada % (Auto) 4.1, Eos % (Auto) 1.4 L, Baso % (Auto) 0.1, Gran # 8.34 H , Lymph # (Auto) 1.8, Ada # (Auto) 0.4, Eos # (Auto) 0.2, Baso # (Auto) 0.01 11/08/17 18:30: Sodium 142, Potassium 3.9, Chloride 102, Carbon Dioxide 26, Anion Gap 18, BUN 10, Creatinine 0.6 L, Est GFR ( Amer) > 60, Est GFR ( Non-Af Amer) > 60, Random Glucose 220 H, Calcium 9.5, Total Bilirubin 0.8, AST 30, ALT 41, Alkaline Phosphatase 79, Total Protein 8.0, Albumin 4.5, Globulin 3.5, Albumin/Globulin Ratio 1.3, Lipase 108 11/08/17 18:30: Urine Color Yellow, Urine Appearance Clear, Urine pH 6.5, Ur Specific [place] 1.010, Urine Protein Negative, Urine Glucose (UA) Negative, Urine Ketones Negative, Urine Blood Negative, Urine Nitrate Negative, Urine Bilirubin Negative, Urine Urobilinogen 0.2, Ur Leukocyte Esterase Negative - RAD Interpretation Radiology Orders: 11/08/17 17:38 CHEST PORTABLE [RAD] Stat 11/08/17 17:43 ABD & PELVIS IV CONTRAST ONLY [CT] Stat - Medication Orders Current Medication Orders: Piperacillin Sod/Tazobactam Sod (Zosyn 3.375 In Ns 100ml) 100 mls @ 200 mls/hr IVPB Q6 YOBANY PRN Reason: Protocol Stop: 11/16/17 00:01 Last Admin: 11/09/17 05:07 Dose: 200 mls/hr eMAR Start Stop Document 11/09/17 05:07 BN (Rec: 11/09/17 05:07 BN [id number] Intravenous Solution Start Date 11/09/17 Start Time 05:07 Sodium Chloride (Sodium Chloride 0.9%) 1,000 mls @ 130 mls/hr IV .Q7H42M [facility] Last Admin: 11/09/17 06:05 Dose: Insulin Human Lispro (Humalog Low) 0 units SC ACHS [facility] PRN Reason: Protocol Lisinopril (Zestril) 2.5 mg PO DAILY [facility] Morphine Sulfate (Morphine) 2 mg IVP Q4H PRN PRN Reason: Pain, severe (8-10) Multivitamins (Thera Tab) 1 tab PO DAILY [facility] Discontinued Medications Docusate Sodium (Colace) 100 mg PO STAT STA Stop: 11/08/17 21:44 Last Admin: 11/08/17 22:12 Dose: 100 mg Last Bowel Movement Document 11/08/17 22:12 LA (Rec: 11/08/17 22:14 LA [id number]) Last Bowel Movement Last Bowel Movement 11/08/17 Sodium Chloride (Sodium Chloride 0.9%) 500 mls @ 999 mls/hr IV .Q31M STA Stop: 11/08/17 18:08 Last Admin: 11/08/17 18:31 Dose: 999 mls/hr eMAR Start Stop Document 11/08/17 18:31 EQ (Rec: 11/08/17 18:31 EQ [id number]) Intravenous Solution Start Date 11/08/17 Start Time 18:31 Ciprofloxacin (Cipro 400mg/200ml Dsw) 400 mg in 200 mls @ 133.3 mls/hr IVPB STAT STA PRN Reason: Protocol Stop: 11/08/17 22:37 Last Admin: 11/08/17 22:49 Dose: 133.3 mls/hr eMAR Start Stop Document 11/08/17 22:49 LA (Rec: 11/08/17 22:51 LA [id number]) Intravenous Solution Start Date 11/08/17 Start Time 22:50 End Date 11/09/17 End time 00:21 Total Infusion Time 91 Metronidazole (Flagyl) 500 mg in 100 mls @ 100 mls/hr IVPB STAT STA PRN Reason: Protocol Stop: 11/08/17 22:06 Last Admin: 11/08/17 22:07 Dose: 100 mls/hr eMAR Start Stop Document 11/08/17 22:07 LA (Rec: 11/08/17 22:07 LA [id number]) Intravenous Solution Start Date 11/08/17 Start Time 22:07 End Date 11/08/17 End time 23:07 Total Infusion Time 60 Metronidazole (Flagyl) 250 mg in 50 mls @ 100 mls/hr IVPB Q8 YOBANY PRN Reason: Protocol Stop: 11/14/17 06:01 Last Admin: 11/09/17 05:07 Dose: 100 mls/hr eMAR Start Stop Document 11/09/17 05:07 BN (Rec: 11/09/17 05:07 BN [id number]) Intravenous Solution Start Date 11/09/17 Start Time 06:10 Morphine Sulfate (Morphine) 4 mg IVP STAT STA Stop: 11/08/17 17:44 Last Admin: 11/08/17 18:31 Dose: 4 mg MAR Pain Assessment Document 11/08/17 18:31 EQ (Rec: 11/08/17 18:31 EQ [id number]) Pain Reassessment Is this a pain reassessment? No Sleep Is patient sleeping during reassessment? No Presence of Pain Presence of Pain Yes IVP Administration Document 11/08/17 18:31 EQ (Rec: 11/08/17 18:31 EQ [id number]) Charges for Administration # of IVP Administrations 1 Re-Assess: GEOVANY Pain Assessment Document 11/08/17 19:31 LA (Rec: 11/08/17 22:24 LA [id number]) Pain Reassessment Is this a pain reassessment? Yes Sleep Is patient sleeping during reassessment? No Presence of Pain Presence of Pain Yes Location Pain Location Body Site Abdomen Description Intensity of Pain at present 4 Ondansetron HCl (Zofran Inj) 4 mg IVP STAT STA Stop: 11/08/17 17:44 Last Admin: 11/08/17 18:31 Dose: 4 mg IVP Administration Document 11/08/17 18:31 EQ (Rec: 11/08/17 18:31 EQ [id number]) Charges for Administration # of IVP Administrations 1 Disposition/Present on Arrival - Present on Arrival Any Indicators Present on Arrival: Yes History of DVT/PE: No History of Uncontrolled Diabetes: Yes Urinary Catheter: No History of Decub. Ulcer: No History Surgical Site Infection Following: None - Disposition Have Diagnosis and Disposition been Completed?: Yes Disposition Time: 21:05 Patient Plan: Admission - Disposition Diagnosis: Diverticulitis Disposition: HOSPITALIZED Patient Problems: Current Active Problems Problem Status Onset Diverticulitis Acute Condition: FAIR
[2017-11-08 19:06] LABS: PH,URINE 6.5 (4.7-8.0); URINE BILIRUBIN NEGATIVE (NEGATIVE); URINE BLOOD NEGATIVE (NEGATIVE); URINE GLUCOSE (UA) NEGATIVE (NEGATIVE); URINE LEUKOCYTE ESTERASE NEGATIVE Leu/uL (NEGATIVE); URINE PROTEIN NEGATIVE mg/dL (<30 mg/dL); URINE UROBILINOGEN 0.2 E.U./dL (<1 E.U./dL)
[2017-11-08 19:10] LABS: ALB/GLOB RATIO 1.3 (1.1-1.8); ALBUMIN 4.5 g/dL (3.0-4.8); ALT/SGPT 41 U/L (7-56); AST/SGOT 30 U/L (14-36); BLOOD UREA NITROGEN 10 mg/dL (7-21); CALCIUM 9.5 mg/dL (8.4-10.5); GFR NON-AFRICAN AMERICAN > 60; LIPASE 108 U/L (23-300); URINE APPEARANCE CLEAR (CLEAR); URINE COLOR YELLOW (YELLOW)
[2017-11-08 19:15] LABS: BASO # 0.01 K/mm3 (0.0-2.0); BASO % 0.1 % (0.0-3.0); EOS # 0.2 (0.0-0.7); EOS % 1.4 % (1.5-5.0); GRAN # 8.34 (1.4-6.5); GRAN % 77.6 % (50.0-68.0); LYMPH # 1.8 (1.2-3.4); LYMPH % 16.8 % (22.0-35.0); MEAN CELL VOLUME 79.6 fl (80.0-105.0); MEAN CORPUSCULAR HEMOGLOBIN 25.3 pg (25.0-35.0); MEAN CORPUSCULAR HGB CONC 31.7 g/dl (31.0-37.0); MEAN PLATELET VOLUME 9.8 fl (7.0-11.0); MONO # 0.4 (0.1-0.6); MONO % 4.1 % (1.0-6.0); RBC 4.75 10^6/uL (3.5-6.1); RED CELL DISTRIBUTION WIDTH 14.8 % (11.5-14.5); WHITE BLOOD COUNT 10.7 10^3/ul (4.5-11.0)
[2017-11-08] MEDS ORDERED: Iohexol 350 MG/100 ML VIAL ONE (19:27)
[2017-11-08] MEDS ORDERED: Ciprofloxacin 400mg/200ml D5W 400 MG/200 ML BAG IVPB STA (21:07)
[2017-11-08] MEDS ORDERED: metroNIDAZOLE IV 500 mg/100 ml 500 MG/100 ML BAG IVPB STA (21:07)
[2017-11-08] MEDS ORDERED: Morphine 2 mg/ml ISec IVP PRN (21:43)
--- NOTE | 2017-11-08 21:49 | CP.PCM.CON ---
<Abe Pruett - Last Filed: 11/08/17 21:58> History of Present Illness - History of Present Illness History of Present Illness: Surgery Consult note. Dr. Velazquez 57yo F with PMHx of Diverticulitis, HTN, DM here for evaluation of abdominal pain. Patient states that she has had abdominal pain for the past 3 days, described as sharp, located in the left lower quadrant, with associated with chills. States that she has had similar symptoms in the past, last episode in august 2017 when she was treated for diverticulitis. She states that she had made a follow-up appointment with Dr. Basurto which is later this month. She started having recurrent symptoms before her follow up appointment. Last bowel movement was this morning, normal caliber, no blood. Last food intake was this afternoon. She does report some fatigue. Denies N/V. No diarrhea. No CP/SOB. No urinary complaints. PMHx: Diverticulitis, HTN, DM PSHx: Partial Hysterectomy Family Hx: Father CT, Sister ESRD Social Hx: Denies Tobacco use, Denies ETOH, Denies illicit drugs. Lives at home with family Allergy - Egg Review of Systems - Review of Systems All systems: reviewed and no additional remarkable complaints except - Constitutional Constitutional: Chills, Fatigue. absent: Fever - Cardiovascular Cardiovascular: absent: Chest Pain, Dyspnea - Respiratory Respiratory: absent: Cough, Dyspnea - Gastrointestinal Gastrointestinal: Abdominal Pain. absent: Diarrhea, Hematemesis, Hematochezia, Melena, Nausea, Vomiting - Genitourinary Genitourinary: absent: Difficulty Urinating, Dysuria Past Patient History - Infectious Disease Hx of Infectious Diseases: None - Past Medical History & Family History Past Medical History?: Yes Past Family History: Reviewed and not pertinent - Past Social History Smoking Status: Never Smoked Alcohol: None Drugs: Denies - CARDIAC Hx Cardiac Disorders: No Hx Hypertension: Yes - PULMONARY Hx Respiratory Disorders: No - NEUROLOGICAL Hx Neurological Disorder: No - HEENT Hx HEENT Problems: No - RENAL Hx Chronic Kidney Disease: No - ENDOCRINE/METABOLIC Hx Endocrine Disorders: No Hx Diabetes Mellitus Type 2: Yes - HEMATOLOGICAL/ONCOLOGICAL Hx Blood Disorders: No - INTEGUMENTARY Hx Dermatological Problems: No - MUSCULOSKELETAL/RHEUMATOLOGICAL Hx Musculoskeletal Disorders: No Hx Falls: No - GASTROINTESTINAL Hx Gastrointestinal Disorders: Yes Hx Diverticulitis: Yes - GENITOURINARY/GYNECOLOGICAL Hx Genitourinary Disorders: No - PSYCHIATRIC Hx Psychophysiologic Disorder: No Hx Depression: No Hx Emotional Abuse: No Hx Physical Abuse: No Hx Substance Use: No - SURGICAL HISTORY Hx Hysterectomy: Yes (PARTIAL) - ANESTHESIA Hx Anesthesia: No Meds Allergies/Adverse Reactions: Allergies Allergy/AdvReac Type Severity Reaction Status Date / Time EGG Allergy ANAPHYLAXIS Verified 11/08/17 17:21 - Medications Medications: Current Medications Ciprofloxacin (Cipro 400mg/200ml Dsw) 400 mg in 200 mls @ 133.3 mls/hr IVPB STAT STA PRN Reason: Protocol Stop: 11/08/17 22:37 Metronidazole (Flagyl) 500 mg in 100 mls @ 100 mls/hr IVPB STAT STA PRN Reason: Protocol Stop: 11/08/17 22:06 Morphine Sulfate (Morphine) 2 mg IVP Q4H PRN PRN Reason: Pain, severe (8-10) Ondansetron HCl (Zofran Inj) 4 mg IVP Q4H PRN PRN Reason: Nausea/Vomiting Physical Exam - Constitutional Appears: Well, Non-toxic, No Acute Distress - Head Exam Head Exam: ATRAUMATIC, NORMAL INSPECTION, NORMOCEPHALIC - Eye Exam Eye Exam: EOMI, Normal appearance - ENT Exam ENT Exam: Mucous Membranes Moist - Respiratory Exam Respiratory Exam: NORMAL BREATHING PATTERN. absent: Accessory Muscle Use, Respiratory Distress - Cardiovascular Exam Cardiovascular Exam: RRR. absent: JVD - GI/Abdominal Exam GI & Abdominal Exam: Soft. absent: Distended, Guarding, Rebound Additional comments: left lower quadrant tenderness. No peritoneal signs - Back Exam Back exam: NORMAL INSPECTION - Neurological Exam Neurological exam: Alert, Oriented x3 - Skin Skin Exam: Dry, Intact, Normal Color, Warm Results - Vital Signs Recent Vital Signs: Last Vital Signs Temp 98.1 F 11/08/17 17:17 Pulse 93 H 11/08/17 17:17 Resp 18 11/08/17 17:17 BP 153/80 H 11/08/17 17:17 Pulse Ox 100 11/08/17 17:17 - Labs Result Diagrams: 11/08/17 18:30 11/08/17 18:30 - Imaging and Cardiology CT scan - abdomen Status: Image reviewed by me, Report reviewed by me Assessment & Plan - Assessment and Plan (Free Text) Assessment: 57yo F with diverticulitis w microperf - CT scan noted. No aashish perforation noted - Mild leukocytosis with left shift. Afebrile. VSS Plan: - NPO - IVF - f/u AM labs - Antiemetics - IV Zosyn. Recommend ID consult - Pain management Further recs as per Dr. Marcus Pruett PGY1 surgery pager: [phone] <Cruz Velazquez - Last Filed: 11/13/17 22:08> Results - Vital Signs Recent Vital Signs: Last Vital Signs Temp 98.4 F 11/10/17 14:00 Pulse 65 11/10/17 14:00 Resp 18 11/10/17 14:00 BP 107/72 11/10/17 14:00 Pulse Ox 97 11/10/17 14:00 - Labs Result Diagrams: 11/10/17 06:20 11/10/17 06:20 Attending/Attestation - Attestation I have personally seen and examined this patient.: Yes I have fully participated in the care of the patient.: Yes I have reviewed all pertinent clinical information: Yes Notes (Text): Pt was seen and examined at bedside Agree with above note and assessment Pt with LLQ pain and tenderness Labs and radiology reviewed Ass: Diverticulitis wiht Microperforation with Leucocytosis Plan : GI consult IV antibiotics NPO, IVF Plan d.w primary team in detail Risk and benefit explained in detail.
[2017-11-08] MEDS: Sodium Chloride 0.9% 1,000 ML IV SCH (22:08)
--- NOTE | 2017-11-08 22:08 | CP.PCM.HP ---
<Zurdo Peterson - Last Filed: 11/08/17 22:09> History of Present Illness - History of Present Illness History of Present Illness: CC: Abdominal Pain HPI: 57 year old female with past medical history of HTN, DM2, diverticulosis, hx of diverticulitis who presents with abdominal pain for the past 3 days. Patient reports the pain as sharp, constant starting in her LLQ with radiation to her LUQ and into her left side. Patient reports nausea and inability to tolerate bland food diet. Patient was admitted to [facility] for diverticulitis in August of 2017 for diverticulitis. She was treated with IV antibiotics and instructed to follow up outpatient with GI clinic in [facility]. Patient indicates she has an appointment November 18. Patient denies fever, chills, diarrhea, bloody stool, constipation, bloody stool, dizziness, weakness, dizziness. 12 point ROS otherwise mentioned in HPI is benign. PMH: HTN, DM2, Diverticulitis PSH: Partial hysterectomy due to uterine bleeding SOCHx: Denies Tobacco, ETOH, ID ALL: Eggs MEDS: - HCTZ - Lisinopril - Metformin PMD: Anais Gannon Present on Admission - Present on Admission Any Indicators Present on Admission: No Review of Systems - Review of Systems All systems: reviewed and no additional remarkable complaints except (as mentioned in HPI) Past Patient History - Infectious Disease Hx of Infectious Diseases: None - Past Social History Smoking Status: Never Smoked Alcohol: None Drugs: Denies - CARDIAC Hx Cardiac Disorders: No Hx Hypertension: Yes - PULMONARY Hx Respiratory Disorders: No - NEUROLOGICAL Hx Neurological Disorder: No - HEENT Hx HEENT Problems: No - RENAL Hx Chronic Kidney Disease: No - ENDOCRINE/METABOLIC Hx Endocrine Disorders: No Hx Diabetes Mellitus Type 2: Yes - HEMATOLOGICAL/ONCOLOGICAL Hx Blood Disorders: No - INTEGUMENTARY Hx Dermatological Problems: No - MUSCULOSKELETAL/RHEUMATOLOGICAL Hx Musculoskeletal Disorders: No Hx Falls: No - GASTROINTESTINAL Hx Gastrointestinal Disorders: Yes Hx Diverticulitis: Yes - GENITOURINARY/GYNECOLOGICAL Hx Genitourinary Disorders: No - PSYCHIATRIC Hx Psychophysiologic Disorder: No Hx Depression: No Hx Emotional Abuse: No Hx Physical Abuse: No Hx Substance Use: No - SURGICAL HISTORY Hx Hysterectomy: Yes (PARTIAL) - ANESTHESIA Hx Anesthesia: No Meds Allergies/Adverse Reactions: Allergies Allergy/AdvReac Type Severity Reaction Status Date / Time EGG Allergy ANAPHYLAXIS Verified 11/08/17 17:21 Physical Exam - Constitutional Appears: Non-toxic - Head Exam Head Exam: ATRAUMATIC, NORMAL INSPECTION, NORMOCEPHALIC - Eye Exam Eye Exam: EOMI, PERRL - ENT Exam ENT Exam: Mucous Membranes Moist - Respiratory Exam Respiratory Exam: Clear to Auscultation Bilateral, NORMAL BREATHING PATTERN. absent: Rales, Rhonchi, Wheezes - Cardiovascular Exam Cardiovascular Exam: REGULAR RHYTHM, +S1, +S2 - GI/Abdominal Exam GI & Abdominal Exam: Diminished Bowel Sounds, Guarding, Soft, Tenderness (LLQ, LUQ). absent: Firm, Rebound, Rigid - Extremities Exam Extremities exam: Positive for: normal capillary refill, pedal pulses present. Negative for: pedal edema - Back Exam Back exam: absent: CVA tenderness (L), CVA tenderness (R) - Neurological Exam Neurological exam: Alert, CN II-XII Intact, Oriented x3 Additional comments: Motor and sensory grossly intact - Psychiatric Exam Psychiatric exam: Normal Affect, Normal Mood - Skin Skin Exam: Dry, Warm Results - Vital Signs Recent Vital Signs: Last Vital Signs Temp 98.1 F 11/08/17 17:17 Pulse 93 H 11/08/17 17:17 Resp 18 11/08/17 17:17 BP 153/80 H 11/08/17 17:17 Pulse Ox 100 11/08/17 17:17 - Labs Result Diagrams: 11/08/17 18:30 11/08/17 18:30 Assessment & Plan - Assessment and Plan (Free Text) Assessment: 57 year old female with past medical history of HTN, DM2, diverticulosis, hx of diverticulitis who presents with abdominal pain for the past [address] showing contained perforated diverticulosis. Plan: Diverticulitis - Abd/Pelvis CT showing 1. There are small foci of extraluminal air within the adjacent pericolonic mesenteric fat, consistent with a contained diverticular perforation. As an underlying malignancy cannot be entirely excluded, a follow-up examination after a course of treatment is recommended if clinically warranted. 2. Small amount of free fluid in the left lower quadrant/pelvis. 3. Hepatomegaly. Hepatic steatosis. - Cipro/Flagyl - ID consult - General surgery consult, appreciate recs - GI consult - NPO - Morphine prn pain HTN - Lisinopril - HCTZ DM2 - ISS-med - ACHS DVT ppx: SCDS GI ppx: Protonix Case and plan discussed with attending - Date & Time Date: 11/08/17 Time: 22:07 <Tiffanie Castro - Last Filed: 11/08/17 23:40> Results - Vital Signs Recent Vital Signs: Last Vital Signs Temp 98 F 11/08/17 23:03 Pulse 85 11/08/17 23:03 Resp 19 11/08/17 23:03 BP 145/65 11/08/17 23:03 Pulse Ox 100 11/08/17 23:03 - Labs Result Diagrams: 11/08/17 18:30 11/08/17 18:30 Labs: Laboratory Results - last 24 hr 11/08/17 22:55 POC Glucose (mg/dL) 152 H Attending/Attestation - Attestation I have personally seen and examined this patient.: Yes I have fully participated in the care of the patient.: Yes I have reviewed all pertinent clinical information: Yes Notes (Text): 11/08/17 23:37 Patient was seen when she in bed # 19 in the ER. Agree with history, physical examination, assessment and plan.
--- NOTE | 2017-11-08 22:26 | CARD ---
APPROVED REPORT EKG Measurement Heart [id number] <Conclusion> Normal sinus rhythm Cannot rule out Anterior infarct, age undetermined Abnormal ECG
[2017-11-09] MEDS: Piperacillin/Tazobact 3.375 gm 100 ML IVPB SCH ×5 (00:01→23:28)
--- NOTE | 2017-11-09 01:36 | ED PDOC ---
Physical Exam Vital Signs Temp Pulse Resp BP Pulse Ox 11/08/17 21:00 98 F 89 18 144/80 99 11/08/17 17:17 98.1 F 93 H 18 153/80 H 100 Finger Stick Blood Glucose: 152 Medical Decision Making ED Course and Treatment: Patient signed out to me by Fady). pending CT results. CT Abdomen and Pelvis With Intravenous Contrast: CONTRAST: 100 mL of OMNI 350 administered intravenously. COMPARISON: CT - ABD PELVIS W/O PO OR IV CONT 2017-09-02 13:56 IMPRESSION: 1. There are small foci of extraluminal air within the adjacent pericolonic mesenteric fat, consistent with a contained diverticular perforation. As an underlying malignancy cannot be entirely excluded, a follow-up examination after a course of treatment is recommended if clinically warranted. 2. Small amount of free fluid in the left lower quadrant/pelvis. 3. Hepatomegaly. Hepatic steatosis. Dictated and Authenticated by: Bebeto Lester MD 11/08/2017 8:38 PM Eastern Time ([place] & [place]) Upon receiving CT result surgical consult was called for questionable microperforation. 11/08/17 20:40 Spoke to surgical services tech about case. 11/08/17 20:45 Spoke to and will admit patient to Hospitalist service. Antibiotics started in Emergency room 11/08/17 21:00 Patient admitted to Hospitalist care. - Lab Interpretations Lab Results: 11/08/17 18:30 11/08/17 18:30 Lab Results 11/08/17 18:30: WBC 10.7 D, RBC 4.75, Hgb 12.0, Hct 37.8, MCV 79.6 L, MCH 25.3 , MCHC 31.7, RDW 14.8 H, Plt Count 232, MPV 9.8, Gran % 77.6 H, Lymph % (Auto) 16.8 L, [place] % (Auto) 4.1, Eos % (Auto) 1.4 L, Baso % (Auto) 0.1, Gran # 8.34 H , Lymph # (Auto) 1.8, [place] # (Auto) 0.4, Eos # (Auto) 0.2, Baso # (Auto) 0.01 11/08/17 18:30: Sodium 142, Potassium 3.9, Chloride 102, Carbon Dioxide 26, Anion Gap 18, BUN 10, Creatinine 0.6 L, Est GFR ( Amer) > 60, Est GFR ( Non-Af Amer) > 60, Random Glucose 220 H, Calcium 9.5, Total Bilirubin 0.8, AST 30, ALT 41, Alkaline Phosphatase 79, Total Protein 8.0, Albumin 4.5, Globulin 3.5, Albumin/Globulin Ratio 1.3, Lipase 108 11/08/17 18:30: Urine Color Yellow, Urine Appearance Clear, Urine pH 6.5, Ur Specific [place] 1.010, Urine Protein Negative, Urine Glucose (UA) Negative, Urine Ketones Negative, Urine Blood Negative, Urine Nitrate Negative, Urine Bilirubin Negative, Urine Urobilinogen 0.2, Ur Leukocyte Esterase Negative - RAD Interpretation Radiology Orders: 11/08/17 17:38 CHEST PORTABLE [RAD] Stat 11/08/17 17:43 ABD & PELVIS IV CONTRAST ONLY [CT] Stat Traffic Control Flagger: Radiologist - Medication Orders Current Medication Orders: Hydrochlorothiazide (Microzide) 12.5 mg PO DAILY [facility] Piperacillin Sod/Tazobactam Sod (Zosyn 3.375 In Ns 100ml) 100 mls @ 200 mls/hr IVPB Q6 [facility] PRN Reason: Protocol Stop: 11/16/17 00:01 Last Admin: 11/09/17 00:01 Dose: Sodium Chloride (Sodium Chloride 0.9%) 1,000 mls @ 130 mls/hr IV .Q7H42M [facility] Last Admin: 11/08/17 22:08 Dose: 130 mls/hr eMAR Start Stop Document 11/08/17 22:08 LA (Rec: 11/08/17 22:08 LA [id number]) Intravenous Solution Start Date 11/08/17 Start Time 22:08 End Date 11/08/17 Ciprofloxacin (Cipro 200mg/100ml D5w) 100 mls @ 67 mls/hr IVPB Q12 [facility] PRN Reason: Protocol Stop: 11/09/17 11:30 Metronidazole (Flagyl) 250 mg in 50 mls @ 100 mls/hr IVPB Q8 [facility] PRN Reason: Protocol Stop: 11/14/17 06:01 Insulin Human Lispro (Humalog Low) 0 units SC ACHS [facility] PRN Reason: Protocol Lisinopril (Zestril) 2.5 mg PO DAILY [facility] Morphine Sulfate (Morphine) 2 mg IVP Q4H PRN PRN Reason: Pain, severe (8-10) Multivitamins (Thera Tab) 1 tab PO DAILY [facility] Ondansetron HCl (Zofran Inj) 4 mg IVP Q4H PRN PRN Reason: Nausea/Vomiting Discontinued Medications Docusate Sodium (Colace) 100 mg PO STAT STA Stop: 11/08/17 21:44 Last Admin: 11/08/17 22:12 Dose: 100 mg Last Bowel Movement Document 11/08/17 22:12 LA (Rec: 11/08/17 22:14 LA [id number]) Last Bowel Movement Last Bowel Movement 11/08/17 Sodium Chloride (Sodium Chloride 0.9%) 500 mls @ 999 mls/hr IV .Q31M STA Stop: 11/08/17 18:08 Last Admin: 11/08/17 18:31 Dose: 999 mls/hr eMAR Start Stop Document 11/08/17 18:31 EQ (Rec: 11/08/17 18:31 EQ [id number]) Intravenous Solution Start Date 11/08/17 Start Time 18:31 Ciprofloxacin (Cipro 400mg/200ml Dsw) 400 mg in 200 mls @ 133.3 mls/hr IVPB STAT STA PRN Reason: Protocol Stop: 11/08/17 22:37 Last Admin: 11/08/17 22:49 Dose: 133.3 mls/hr eMAR Start Stop Document 11/08/17 22:49 LA (Rec: 11/08/17 22:51 LA [id number]) Intravenous Solution Start Date 11/08/17 Start Time 22:50 End Date 11/09/17 End time 00:21 Total Infusion Time 91 Metronidazole (Flagyl) 500 mg in 100 mls @ 100 mls/hr IVPB STAT STA PRN Reason: Protocol Stop: 11/08/17 22:06 Last Admin: 11/08/17 22:07 Dose: 100 mls/hr eMAR Start Stop Document 11/08/17 22:07 LA (Rec: 11/08/17 22:07 LA [id number]) Intravenous Solution Start Date 11/08/17 Start Time 22:07 End Date 11/08/17 End time 23:07 Total Infusion Time 60 Morphine Sulfate (Morphine) 4 mg IVP STAT STA Stop: 11/08/17 17:44 Last Admin: 11/08/17 18:31 Dose: 4 mg MAR Pain Assessment Document 11/08/17 18:31 EQ (Rec: 11/08/17 18:31 EQ [id number]) Pain Reassessment Is this a pain reassessment? No Sleep Is patient sleeping during reassessment? No Presence of Pain Presence of Pain Yes IVP Administration Document 11/08/17 18:31 EQ (Rec: 11/08/17 18:31 EQ [id number]) Charges for Administration # of IVP Administrations 1 Re-Assess: MAR Pain Assessment Document 11/08/17 19:31 LA (Rec: 11/08/17 22:24 LA [id number]) Pain Reassessment Is this a pain reassessment? Yes Sleep Is patient sleeping during reassessment? No Presence of Pain Presence of Pain Yes Location Pain Location Body Site Abdomen Description Intensity of Pain at present 4 Ondansetron HCl (Zofran Inj) 4 mg IVP STAT STA Stop: 11/08/17 17:44 Last Admin: 11/08/17 18:31 Dose: 4 mg IVP Administration Document 11/08/17 18:31 EQ (Rec: 11/08/17 18:31 EQ [id number]) Charges for Administration # of IVP Administrations 1 - Scribe Statement The provider has reviewed the documentation as recorded by the Scribe Amauri Bueno Provider Scribe Attestation: All medical record entries made by the Scribe were at my direction and personally dictated by me. I have reviewed the chart and agree that the record accurately reflects my personal performance of the history, physical exam, medical decision making, and the department course for this patient. I have also personally directed, reviewed, and agree with the discharge instructions and disposition. Disposition/Present on Arrival - Present on Arrival Any Indicators Present on Arrival: No History of DVT/PE: No History of Uncontrolled Diabetes: No Urinary Catheter: No History of Decub. Ulcer: No History Surgical Site Infection Following: None - Disposition Have Diagnosis and Disposition been Completed?: Yes Diagnosis: Diverticulitis Disposition: HOSPITALIZED Disposition Time: 21:00 Condition: FAIR
[2017-11-09] MEDS ORDERED: metroNIDAZOLE IV 250mg/50 ml 250 MG/50 ML BAG IVPB SCH (06:00)
[2017-11-09] MEDS: Sodium Chloride 0.9% 1,000 ML IV SCH ×2 (06:05→21:45)
--- NOTE | 2017-11-09 06:52 | CP.PCM.CON ---
<Indra Doran - Last Filed: 11/09/17 12:20> History of Present Illness - History of Present Illness History of Present Illness: Subjective: Patient is a 57 year old female with a past medical history of HTN, DM2, and diverticulitis who was admitted for evaluation and treatment of abdominal pain which began 3 days ago with no specific provoking event. The pain originates in the left lower quadrant and radiates to the left upper quadrant. No change in pain with bowel movement. It is characterized as being being sharp in nature and is rated a 8/10. It is important to note that the patient was admitted to [facility] in August of 2017 and treated for diverticulitis. At that time the patient was discharged home on PO antibiotics and informed to follow up in an outpatient setting. Currently patient admits to intermittent nausea but is able to tolerate her diet. Denies emesis, diarrhea, constipation, blood per mouth, and blood per rectum. PMH: HTN, DM2, Diverticulitis PSH: Partial hysterectomy due to uterine bleeding ALL: Eggs SOCHx: Denies Tobacco, ETOH, ID MEDS: - HCTZ, Lisinopril, Metformin PMD: Anais Gannon Physical Examination: - Constitutional Appears: Non-toxic - Head Exam Head Exam: ATRAUMATIC - Eye Exam Eye Exam: EOMI, PERRL - ENT Exam ENT Exam: Mucous Membranes Moist - Respiratory Exam Respiratory Exam: Clear to Auscultation Bilateral - Cardiovascular Exam Cardiovascular Exam: +S1, +S2 - GI/Abdominal Exam GI & Abdominal Exam: Soft, Tenderness (LLQ); absent: organomegaly, guarding, rigidity, rebound tenderness - Extremities Exam Extremities exam: Positive for: normal capillary refill, pedal pulses present. Negative for: pedal edema - Neurological Exam Neurological exam: Alert, awake, AAOx3 - Psychiatric Exam Psychiatric exam: Normal Affect, Normal Mood - Skin Skin Exam: Dry, Warm Assessment and Plan: Patient is a 57 year old female with a past medical history of HTN, DM2, and diverticulitis who was admitted for evaluation and treatment of abdominal pain. Abdomen/pelvis CT revealed a small foci of extraluminal air within the adjacent pericolonic mesenteric fat, consistent with a contained diverticular perforation , a small amount of free fluid in the left lower quadrant/pelvis, hepatomegaly and hepatic steatosis. Patient treated with cipro/flagyl in the ED and continued on zosyn on the med/surg. 1. Abdominal pain 2/2 Diverticulitis with microperf 2. Hepatomegaly and hepatic steatosis 3. Hx of HTN 4. Hx of DM - no acute GI intervention required at this time - Keep NPO - c/w IVF & IV zosyn - serial abdominal exams - surgery on board- appreciate recommendations - will require outpatient colonoscopy, follow up in an outpatient setting - patient education provided- encourage high fiber diet - c/w blood pressure and blood glucose control Patient case discussed with and plan approved by attending physician Dr. Brantley. Past Patient History - Infectious Disease Hx of Infectious Diseases: None - Past Medical History & Family History Past Medical History?: Yes Past Family History: Reviewed and not pertinent - Past Social History Smoking Status: Never Smoked - CARDIAC Hx Cardiac Disorders: No Hx Hypertension: Yes - PULMONARY Hx Respiratory Disorders: No - NEUROLOGICAL Hx Neurological Disorder: No - HEENT Hx HEENT Problems: No - RENAL Hx Chronic Kidney Disease: No - ENDOCRINE/METABOLIC Hx Endocrine Disorders: No Hx Diabetes Mellitus Type 2: Yes - HEMATOLOGICAL/ONCOLOGICAL Hx Blood Disorders: No - INTEGUMENTARY Hx Dermatological Problems: No - MUSCULOSKELETAL/RHEUMATOLOGICAL Hx Musculoskeletal Disorders: No Hx Arthritis: Yes Hx Falls: No - GASTROINTESTINAL Hx Gastrointestinal Disorders: Yes Hx Diverticulitis: Yes - GENITOURINARY/GYNECOLOGICAL Hx Genitourinary Disorders: No - PSYCHIATRIC Hx Psychophysiologic Disorder: No Hx Depression: No Hx Emotional Abuse: No Hx Physical Abuse: No Hx Substance Use: No - SURGICAL HISTORY Hx Hysterectomy: Yes (PARTIAL) - ANESTHESIA Hx Anesthesia: No Meds Allergies/Adverse Reactions: Allergies Allergy/AdvReac Type Severity Reaction Status Date / Time EGG Allergy ANAPHYLAXIS Verified 11/08/17 17:21 - Medications Medications: Current Medications Hydrochlorothiazide (Microzide) 12.5 mg PO DAILY [facility] Piperacillin Sod/Tazobactam Sod (Zosyn 3.375 In Ns 100ml) 100 mls @ 200 mls/hr IVPB Q6 [facility] PRN Reason: Protocol Stop: 11/16/17 00:01 Last Admin: 11/09/17 05:07 Dose: 200 mls/hr Sodium Chloride (Sodium Chloride 0.9%) 1,000 mls @ 130 mls/hr IV .Q7H42M [facility] Last Admin: 11/09/17 06:05 Dose: Not Given Ciprofloxacin (Cipro 200mg/100ml D5w) 100 mls @ 67 mls/hr IVPB Q12 [facility] PRN Reason: Protocol Stop: 11/09/17 11:30 Metronidazole (Flagyl) 250 mg in 50 mls @ 100 mls/hr IVPB Q8 [facility] PRN Reason: Protocol Stop: 11/14/17 06:01 Last Admin: 11/09/17 05:07 Dose: 100 mls/hr Insulin Human Lispro (Humalog Low) 0 units SC ACHS [facility] PRN Reason: Protocol Lisinopril (Zestril) 2.5 mg PO DAILY [facility] Morphine Sulfate (Morphine) 2 mg IVP Q4H PRN PRN Reason: Pain, severe (8-10) Multivitamins (Thera Tab) 1 tab PO DAILY [facility] Ondansetron HCl (Zofran Inj) 4 mg IVP Q4H PRN PRN Reason: Nausea/Vomiting Results - Vital Signs Recent Vital Signs: Last Vital Signs Temp 98.3 F 11/08/17 23:55 Pulse 87 11/08/17 23:55 Resp 19 11/08/17 23:55 BP 134/85 11/08/17 23:55 Pulse Ox 100 11/08/17 23:03 - Labs Result Diagrams: 11/09/17 06:45 11/09/17 06:45 Labs: Laboratory Results - last 24 hr 11/08/17 22:55 POC Glucose (mg/dL) 152 H <Bernardo Brantley - Last Filed: 11/09/17 20:39> Meds - Medications Medications: Current Medications Heparin Sodium (Porcine) (Heparin) 5,000 units SC Q8 Y[facility]ANY PRN Reason: Protocol Last Admin: 11/09/17 13:51 Dose: 5,000 units Piperacillin Sod/Tazobactam Sod (Zosyn 3.375 In Ns 100ml) 100 mls @ 200 mls/hr IVPB Q6 [facility]ANY PRN Reason: Protocol Stop: 11/16/17 00:01 Last Admin: 11/09/17 18:28 Dose: 200 mls/hr Sodium Chloride (Sodium Chloride 0.9%) 1,000 mls @ 130 mls/hr IV .Q7H42M [facility] Last Admin: 11/09/17 06:05 Dose: Not Given Insulin Human Lispro (Humalog Low) 0 units SC ACHS Y[facility]ANY PRN Reason: Protocol Last Admin: 11/09/17 18:27 Dose: 1 units Lactobacillus Acidophilus (Bacid Acidophilus) 1 cap PO BID [facility] Last Admin: 11/09/17 18:28 Dose: 1 cap Lisinopril (Zestril) 2.5 mg PO DAILY [facility] Last Admin: 11/09/17 10:40 Dose: 2.5 mg Morphine Sulfate (Morphine) 2 mg IVP Q4H PRN PRN Reason: Pain, severe (8-10) Multivitamins (Thera Tab) 1 tab PO DAILY [facility] Last Admin: 11/09/17 10:40 Dose: 1 tab Results - Vital Signs Recent Vital Signs: Last Vital Signs Temp 98.9 F 11/09/17 14:00 Pulse 79 11/09/17 14:00 Resp 18 11/09/17 14:00 BP 109/68 11/09/17 14:00 Pulse Ox 99 11/09/17 14:00 - Labs Result Diagrams: 11/09/17 06:45 11/09/17 06:45 Labs: Laboratory Results - last 24 hr 11/08/17 11/09/17 11/09/17 22:55 06:44 06:45 WBC 8.8 RBC 4.01 Hgb 10.3 L Hct 32.0 L MCV 79.8 L MCH 25.7 MCHC 32.2 RDW 15.1 H Plt Count 201 MPV 10.2 Gran % 76.2 H Lymph % (Auto) 14.4 L [place] % (Auto) 7.4 H Eos % (Auto) 1.8 Baso % (Auto) 0.2 Gran # 6.66 H Lymph # (Auto) 1.3 [place] # (Auto) 0.7 H Eos # (Auto) 0.2 Baso # (Auto) 0.02 PT INR APTT Sodium Potassium Chloride Carbon Dioxide Anion Gap BUN Creatinine Est GFR ( Amer) Est GFR (Non-Af Amer) POC Glucose (mg/dL) 152 H 203 H Random Glucose Calcium Total Bilirubin AST ALT Alkaline Phosphatase Total Protein Albumin Globulin Albumin/Globulin Ratio 11/09/17 11/09/17 11/09/17 06:45 06:45 11:21 WBC RBC Hgb Hct MCV MCH MCHC RDW Plt Count MPV Gran % Lymph % (Auto) [place] % (Auto) Eos % (Auto) Baso % (Auto) Gran # Lymph # (Auto) [place] # (Auto) Eos # (Auto) Baso # (Auto) PT 12.8 H INR 1.11 H APTT 28.2 Sodium 141 Potassium 4.0 Chloride 103 Carbon Dioxide 27 Anion Gap 15 BUN 6 L Creatinine 0.7 Est GFR ( Amer) > 60 Est GFR (Non-Af Amer) > 60 POC Glucose (mg/dL) 172 H Random Glucose 205 H Calcium 8.4 Total Bilirubin 1.1 AST 20 ALT 29 Alkaline Phosphatase 73 Total Protein 6.5 Albumin 3.6 Globulin 2.9 Albumin/Globulin Ratio 1.2 11/09/17 15:43 WBC RBC Hgb Hct MCV MCH MCHC RDW Plt Count MPV Gran % Lymph % (Auto) [place] % (Auto) Eos % (Auto) Baso % (Auto) Gran # Lymph # (Auto) [place] # (Auto) Eos # (Auto) Baso # (Auto) PT INR APTT Sodium Potassium Chloride Carbon Dioxide Anion Gap BUN Creatinine Est GFR ( Amer) Est GFR (Non-Af Amer) POC Glucose (mg/dL) 185 H Random Glucose Calcium Total Bilirubin AST ALT Alkaline Phosphatase Total Protein Albumin Globulin Albumin/Globulin Ratio Attending/Attestation - Attestation I have personally seen and examined this patient.: Yes I have fully participated in the care of the patient.: Yes I have reviewed all pertinent clinical information: Yes Notes (Text): 11/09/17 20:38 57 year old female with acute recurrent diverticulitis. Recommend IV antibiotics and surgical consultation. Recommend colonoscopy in 2 months. Advance diet as tolerated. Improving. Will sign off.
[2017-11-09 07:07] LABS: BASO # 0.02 K/mm3 (0.0-2.0); BASO % 0.2 % (0.0-3.0); EOS # 0.2 (0.0-0.7); EOS % 1.8 % (1.5-5.0); GRAN # 6.66 (1.4-6.5); GRAN % 76.2 % (50.0-68.0); HEMOGLOBIN 10.3 g/dL (12.0-16.0); LYMPH # 1.3 (1.2-3.4); LYMPH % 14.4 % (22.0-35.0); MEAN CELL VOLUME 79.8 fl (80.0-105.0); MEAN CORPUSCULAR HEMOGLOBIN 25.7 pg (25.0-35.0); MEAN CORPUSCULAR HGB CONC 32.2 g/dl (31.0-37.0); MEAN PLATELET VOLUME 10.2 fl (7.0-11.0); MONO # 0.7 (0.1-0.6); MONO % 7.4 % (1.0-6.0); RBC 4.01 10^6/uL (3.5-6.1); RED CELL DISTRIBUTION WIDTH 15.1 % (11.5-14.5); WHITE BLOOD COUNT 8.8 10^3/ul (4.5-11.0)
[2017-11-09 07:17] LABS: INR 1.11 (0.93-1.08); PARTIAL THROMBOPLASTIN TIME 28.2 Seconds (25.1-36.5); PROTHROMBIN TIME 12.8 SECONDS (9.4-12.5)
[2017-11-09 07:41] LABS: ALB/GLOB RATIO 1.2 (1.1-1.8); ALBUMIN 3.6 g/dL (3.0-4.8); ALT/SGPT 29 U/L (7-56); AST/SGOT 20 U/L (14-36); BLOOD UREA NITROGEN 6 mg/dL (7-21); CALCIUM 8.4 mg/dL (8.4-10.5); GFR NON-AFRICAN AMERICAN > 60
[2017-11-09] MEDS: Insulin Lispro (humaLOG) LOW Coverage SC SCH ×4 (08:00→21:40)
--- NOTE | 2017-11-09 08:50 | CP.PCM.PN ---
<Jasbir Méndezaf - Last Filed: 11/09/17 08:47> Subjective - Date & Time of Evaluation Date of Evaluation: 11/09/17 Time of Evaluation: 08:47 - Subjective Subjective: Surgery: Dr. Velazquez Pt seen and examined. No acute overnight events. States she's feeling a lot better this morning compared to yesterday. Denies any episodes of N/V or F/C overnight. Objective - Vital Signs/Intake and Output Vital Signs (last 24 hours): Temp Pulse Resp BP Pulse Ox 98.4 F 75 20 93/49 L 99 11/09/17 06:00 11/09/17 06:00 11/09/17 06:00 11/09/17 06:00 11/09/17 06:00 Intake and Output: 11/09/17 11/09/17 06:59 18:59 Intake Total 0 Balance 0 - Medications Medications: Current Medications Piperacillin Sod/Tazobactam Sod (Zosyn 3.375 In Ns 100ml) 100 mls @ 200 mls/hr IVPB Q6 YOBANY PRN Reason: Protocol Stop: 11/16/17 00:01 Last Admin: 11/09/17 05:07 Dose: 200 mls/hr Sodium Chloride (Sodium Chloride 0.9%) 1,000 mls @ 130 mls/hr IV .Q7H42M [facility]ANY Last Admin: 11/09/17 06:05 Dose: Not Given Insulin Human Lispro (Humalog Low) 0 units SC ACHS YOBANY PRN Reason: Protocol Lisinopril (Zestril) 2.5 mg PO DAILY [facility] Morphine Sulfate (Morphine) 2 mg IVP Q4H PRN PRN Reason: Pain, severe (8-10) Multivitamins (Thera Tab) 1 tab PO DAILY [facility] - Labs Labs: 11/09/17 06:45 11/09/17 06:45 PT 12.8 SECONDS (9.4-12.5) H 11/09/17 06:45 INR 1.11 (0.93-1.08) H 11/09/17 06:45 APTT 28.2 Seconds (25.1-36.5) 11/09/17 06:45 - Constitutional Appears: Well, No Acute Distress - Head Exam Head Exam: ATRAUMATIC, NORMOCEPHALIC - Eye Exam Eye Exam: Normal appearance - ENT Exam ENT Exam: Mucous Membranes Moist - Respiratory Exam Respiratory Exam: NORMAL BREATHING PATTERN - Cardiovascular Exam Cardiovascular Exam: RRR - GI/Abdominal Exam GI & Abdominal Exam: Soft, Tenderness (exquisite ttp in the LLQ ). absent: Distended, Guarding - Neurological Exam Neurological Exam: Alert, Awake, Oriented x3 - Skin Skin Exam: Dry, Warm Assessment and Plan - Assessment and Plan (Free Text) Assessment: 57F with recurrent diverticulitis Plan: - Keep NPO with IVF & IV ABX - serial abdominal exams - Pt will eventually need surgery as this her 3rd bout of diverticulitis & with microperf; this was discussed with the pt - pt scheduled to see GI Dr. Basurto on the - cont to monitor - d/w Dr. Marcus Méndez, PGY-3 <Cruz Velazquez - Last Filed: 11/13/17 22:10> Objective - Vital Signs/Intake and Output Vital Signs (last 24 hours): Temp Pulse Resp BP Pulse Ox 98.4 F 65 18 107/72 97 11/10/17 14:00 11/10/17 14:00 11/10/17 14:00 11/10/17 14:00 11/10/17 14:00 - Labs Labs: 11/10/17 06:20 11/10/17 06:20 PT 12.8 SECONDS (9.4-12.5) H 11/09/17 06:45 INR 1.11 (0.93-1.08) H 11/09/17 06:45 APTT 28.2 Seconds (25.1-36.5) 11/09/17 06:45 Attending/Attestation - Attestation I have fully participated in the care of the patient.: Yes I have reviewed all pertinent clinical information, including history, physical exam and plan: Yes Notes (Text): Pt is improving clinically IV antibiotics Start clears Plan d.w pt in detail
--- NOTE | 2017-11-09 08:51 | RAD ---
HISTORY: abd pain COMPARISON: 10/28/2017 FINDINGS: LUNGS: There is elevation of the right hemidiaphragm. There is a linear infiltrate in the right lung which probably represents atelectasis. PLEURA: No significant pleural effusion identified, no pneumothorax apparent. CARDIOVASCULAR: Normal. OSSEOUS STRUCTURES: No significant abnormalities. VISUALIZED UPPER ABDOMEN: Normal. OTHER FINDINGS: None. IMPRESSION: There is elevation of the right hemidiaphragm. There is a linear infiltrate in the right lung which probably represents atelectasis.
[2017-11-09] MEDS ORDERED: Ciprofloxacin 200mg/100ml D5W 100 ML IVPB SCH (10:00)
--- NOTE | 2017-11-09 10:23 | CT ---
PROCEDURE: CT Abdomen and Pelvis with contrast HISTORY: LLQ abd pain hx of diverticulitis COMPARISON: 09/02/2017 TECHNIQUE: Contrast dose: 100 cc of Omni 350 Radiation dose: Total exam DLP = 1089 mGy-cm. This CT exam was performed using one or more of the following dose reduction techniques: Automated exposure control, adjustment of the mA and/or kV according to patient size, and/or use of iterative reconstruction technique. FINDINGS: LOWER THORAX: Unremarkable. LIVER: Unremarkable. No gross lesion or ductal dilatation. GALLBLADDER AND BILE DUCTS: Unremarkable. PANCREAS: Unremarkable. No gross lesion or ductal dilatation. SPLEEN: Unremarkable. ADRENALS: Unremarkable. No mass. KIDNEYS AND URETERS: Unremarkable. No hydronephrosis. No solid mass. VASCULATURE: Unremarkable. No aortic aneurysm. BOWEL: There is diverticulosis and diverticulitis of the sigmoid colon. Pericolonic inflammatory changes are seen along the superior surface of the bladder. There is no evidence of fistula. The pattern is similar to the previous study. APPENDIX: Normal appendix. PERITONEUM: Unremarkable. No free fluid. No free air. LYMPH NODES: Unremarkable. No enlarged lymph nodes. BLADDER: Unremarkable. REPRODUCTIVE: Unremarkable. BONES: No acute fracture. OTHER FINDINGS: None. IMPRESSION: Diverticulitis of the sigmoid colon.
[2017-11-09] MEDS: Multivitamin Therapeutic Tab PO SCH (10:40)
--- NOTE | 2017-11-09 12:16 | CP.PCM.CON ---
History of Present Illness - History of Present Illness History of Present Illness: 57 year old female with PMH of diverticulitis (attacks 8 years ago, 2017), diverticulosis, HTN, DM, obesity with BMI 37, S/P partial hysterectomy came in to [facility] because of sharp, severe left lower quadrant pain which has been worsening over 3 days, especially with food intake. She has nausea but no vomiting, no diarrhea, no melena or hematochezia, no fever or chills. She also denies cough or rhinorrhea, no dysphagia, no sore throat, no chest pain, no SOB , no headache or dizziness, no dysuria. CT scan of the abdomen and pelvis reveals sigmoid diverticulitis. Infectious Diseases consult is requested to further evaluate and manage. Review of Systems - Review of Systems All systems: reviewed and no additional remarkable complaints except (as per HPI ) Past Patient History - Infectious Disease Hx of Infectious Diseases: None - Past Medical History & Family History Past Medical History?: Yes Past Family History: Reviewed and not pertinent - Past Social History Smoking Status: Never Smoked Alcohol: None Drugs: Denies - CARDIAC Hx Cardiac Disorders: No Hx Hypertension: Yes - PULMONARY Hx Respiratory Disorders: No - NEUROLOGICAL Hx Neurological Disorder: No - HEENT Hx HEENT Problems: No - RENAL Hx Chronic Kidney Disease: No - ENDOCRINE/METABOLIC Hx Endocrine Disorders: No Hx Diabetes Mellitus Type 2: Yes - HEMATOLOGICAL/ONCOLOGICAL Hx Blood Disorders: No - INTEGUMENTARY Hx Dermatological Problems: No - MUSCULOSKELETAL/RHEUMATOLOGICAL Hx Musculoskeletal Disorders: No Hx Falls: No - GASTROINTESTINAL Hx Gastrointestinal Disorders: Yes Hx Diverticulitis: Yes - GENITOURINARY/GYNECOLOGICAL Hx Genitourinary Disorders: No - PSYCHIATRIC Hx Psychophysiologic Disorder: No Hx Depression: No Hx Emotional Abuse: No Hx Physical Abuse: No Hx Substance Use: No - SURGICAL HISTORY Hx Hysterectomy: Yes (PARTIAL) - ANESTHESIA Hx Anesthesia: No Meds Allergies/Adverse Reactions: Allergies Allergy/AdvReac Type Severity Reaction Status Date / Time EGG Allergy ANAPHYLAXIS Verified 11/08/17 17:21 - Medications Medications: Current Medications Hydrochlorothiazide (Microzide) 12.5 mg PO DAILY [facility] Piperacillin Sod/Tazobactam Sod (Zosyn 3.375 In Ns 100ml) 100 mls @ 200 mls/hr IVPB Q6 [facility] PRN Reason: Protocol Stop: 11/16/17 00:01 Sodium Chloride (Sodium Chloride 0.9%) 1,000 mls @ 130 mls/hr IV .Q7H42M [facility] Last Admin: 11/08/17 22:08 Dose: 130 mls/hr Insulin Human Lispro (Humalog Low) 0 units SC ACHS [facility] PRN Reason: Protocol Lisinopril (Zestril) 2.5 mg PO DAILY [facility] Morphine Sulfate (Morphine) 2 mg IVP Q4H PRN PRN Reason: Pain, severe (8-10) Multivitamins (Thera Tab) 1 tab PO DAILY [facility] Ondansetron HCl (Zofran Inj) 4 mg IVP Q4H PRN PRN Reason: Nausea/Vomiting Physical Exam - Constitutional Appears: Non-toxic, Chronically Ill - Head Exam Head Exam: NORMAL INSPECTION - ENT Exam ENT Exam: Mucous Membranes Moist - Neck Exam Neck exam: Negative for: Lymphadenopathy, Meningismus - Respiratory Exam Respiratory Exam: Decreased Breath Sounds - Cardiovascular Exam Cardiovascular Exam: +S1, +S2 - GI/Abdominal Exam GI & Abdominal Exam: Soft, Tenderness (mild, LLQ). absent: Distended, Firm, Guarding, Rebound, Rigid Results - Vital Signs Recent Vital Signs: Last Vital Signs Temp 98.1 F 11/08/17 17:17 Pulse 93 H 11/08/17 17:17 Resp 18 11/08/17 17:17 BP 153/80 H 11/08/17 17:17 Pulse Ox 100 11/08/17 17:17 - Labs Result Diagrams: 11/09/17 06:45 11/09/17 06:45 Assessment & Plan - Assessment and Plan (Free Text) Plan: Assessment Acute diverticulitis of the sigmoid colon, in a patient with history of diverticulitis (attacks 8 years ago, 2017) and diverticulosis HTN DM obesity with BMI 37 S/P partial hysterectomy Plan Started the patient on Zosyn and will monitor clinical response and advancement of diet follow up GI recommendations - may need repeat colonoscopy
--- NOTE | 2017-11-09 13:26 | CP.PCM.PN ---
<Deepak Malhotra - Last Filed: 11/09/17 13:23> Subjective - Date & Time of Evaluation Date of Evaluation: 11/09/17 Time of Evaluation: 13:23 - Subjective Subjective: Patient seen and examined at bedside. Belly pain has resolved, has no nausea at this time. Denies any fevers or chills. Last colonoscopy was 8 years ago and was normal at that time. Patient was instructed that upon dc need to follow up with GI doctor for scope in 4-6 months and follow up with surgeon for likely resection at that time depending on colonoscopy results. Objective - Vital Signs/Intake and Output Vital Signs (last 24 hours): Temp Pulse Resp BP Pulse Ox 98.4 F 75 20 93/49 L 99 11/09/17 06:00 11/09/17 06:00 11/09/17 06:00 11/09/17 06:00 11/09/17 06:00 Intake and Output: 11/09/17 11/09/17 06:59 18:59 Intake Total 0 Balance 0 - Medications Medications: Current Medications Heparin Sodium (Porcine) (Heparin) 5,000 units SC Q8 [facility] PRN Reason: Protocol Piperacillin Sod/Tazobactam Sod (Zosyn 3.375 In Ns 100ml) 100 mls @ 200 mls/hr IVPB Q6 [facility] PRN Reason: Protocol Stop: 11/16/17 00:01 Last Admin: 11/09/17 05:07 Dose: 200 mls/hr Sodium Chloride (Sodium Chloride 0.9%) 1,000 mls @ 130 mls/hr IV .Q7H42M [facility] Last Admin: 11/09/17 06:05 Dose: Not Given Insulin Human Lispro (Humalog Low) 0 units SC ACHS [facility] PRN Reason: Protocol Lactobacillus Acidophilus (Bacid Acidophilus) 1 cap PO BID [facility] Lisinopril (Zestril) 2.5 mg PO DAILY [facility] Last Admin: 11/09/17 10:40 Dose: 2.5 mg Morphine Sulfate (Morphine) 2 mg IVP Q4H PRN PRN Reason: Pain, severe (8-10) Multivitamins (Thera Tab) 1 tab PO DAILY [facility] Last Admin: 11/09/17 10:40 Dose: 1 tab - Labs Labs: 11/09/17 06:45 11/09/17 06:45 PT 12.8 SECONDS (9.4-12.5) H 11/09/17 06:45 INR 1.11 (0.93-1.08) H 11/09/17 06:45 APTT 28.2 Seconds (25.1-36.5) 11/09/17 06:45 - Constitutional Appears: Well - Head Exam Head Exam: ATRAUMATIC, NORMAL INSPECTION, NORMOCEPHALIC - Eye Exam Eye Exam: EOMI, Normal appearance, PERRL Pupil Exam: NORMAL ACCOMODATION, PERRL - ENT Exam ENT Exam: Mucous Membranes Moist, Normal Exam - Neck Exam Neck Exam: Full ROM, Normal Inspection. absent: Lymphadenopathy - Respiratory Exam Respiratory Exam: Clear to Ausculation Bilateral, NORMAL BREATHING PATTERN - Cardiovascular Exam Cardiovascular Exam: REGULAR RHYTHM, +S1, +S2. absent: Murmur - GI/Abdominal Exam GI & Abdominal Exam: Soft, Normal Bowel Sounds. absent: Tenderness - Extremities Exam Extremities Exam: Full ROM, Normal Capillary Refill, Normal Inspection. absent : Joint Swelling, Pedal Edema - Back Exam Back Exam: NORMAL INSPECTION - Neurological Exam Neurological Exam: Alert, Awake, CN II-XII Intact, Normal Gait, Oriented x3 - Psychiatric Exam Psychiatric exam: Normal Affect, Normal Mood - Skin Skin Exam: Dry, Intact, Normal Color, Warm Assessment and Plan (1) Diverticulitis Assessment & Plan: ID Consult GI Consult Surgery Consult CLD - will advance as tolerated Morphine for pain Zosyn NS Status: Acute (2) HTN (hypertension) Assessment & Plan: Zestril Status: Chronic (3) Diabetes mellitus Assessment & Plan: ISS Low Status: Chronic (4) Prophylactic measure Assessment & Plan: Heparin SCD No GI PPX indicated at this time Status: Acute <Chrystal Fox - Last Filed: 11/11/17 14:15> Objective - Vital Signs/Intake and Output Vital Signs (last 24 hours): Temp Pulse Resp BP Pulse Ox 98.4 F 65 18 107/72 97 11/10/17 14:00 11/10/17 14:00 11/10/17 14:00 11/10/17 14:00 11/10/17 14:00 - Labs Labs: 11/10/17 06:20 11/10/17 06:20 PT 12.8 SECONDS (9.4-12.5) H 11/09/17 06:45 INR 1.11 (0.93-1.08) H 11/09/17 06:45 APTT 28.2 Seconds (25.1-36.5) 11/09/17 06:45 Attending/Attestation - Attestation I have personally seen and examined this patient.: Yes I have fully participated in the care of the patient.: Yes I have reviewed all pertinent clinical information, including history, physical exam and plan: Yes Notes (Text): 11/11/17 14:15 Medical record note made by the resident after discussion with my direction and input after the patient was personally seen and examined by me. I have reviewed the chart and agree that the record accurately reflects by personal performance of the history, physical exam, data review, and medical decision-making, in the course for the patient. I have also personally directed the plan of care.
[2017-11-09 15:49] VITALS: RESP 18
[2017-11-09] MEDS: Lactobacillus Acidophilus 500 MU Cap PO SCH (18:28)
[2017-11-10] MEDS: Piperacillin/Tazobact 3.375 gm 100 ML IVPB SCH ×3 (05:35→17:33)
[2017-11-10 06:50] LABS: BASO # 0.01 K/mm3 (0.0-2.0); BASO % 0.2 % (0.0-3.0); EOS # 0.2 (0.0-0.7); EOS % 3.3 % (1.5-5.0); GRAN # 2.9 (1.4-6.5); GRAN % 59.1 % (50.0-68.0); HEMOGLOBIN 9.9 g/dL (12.0-16.0); LYMPH # 1.5 (1.2-3.4); LYMPH % 29.9 % (22.0-35.0); MEAN CELL VOLUME 80.6 fl (80.0-105.0); MEAN CORPUSCULAR HEMOGLOBIN 25.6 pg (25.0-35.0); MEAN CORPUSCULAR HGB CONC 31.8 g/dl (31.0-37.0); MEAN PLATELET VOLUME 9.8 fl (7.0-11.0); MONO # 0.4 (0.1-0.6); MONO % 7.5 % (1.0-6.0); RBC 3.86 10^6/uL (3.5-6.1); RED CELL DISTRIBUTION WIDTH 15.1 % (11.5-14.5); WHITE BLOOD COUNT 4.9 10^3/ul (4.5-11.0)
[2017-11-10 07:21] LABS: ALB/GLOB RATIO 1.2 (1.1-1.8); ALBUMIN 3.3 g/dL (3.0-4.8); ALT/SGPT 28 U/L (7-56); AST/SGOT 18 U/L (14-36); BLOOD UREA NITROGEN 6 mg/dL (7-21); CALCIUM 8.4 mg/dL (8.4-10.5); GFR NON-AFRICAN AMERICAN > 60
[2017-11-10] MEDS: Insulin Lispro (humaLOG) LOW Coverage SC SCH ×3 (08:36→16:13)
[2017-11-10] MEDS: Lactobacillus Acidophilus 500 MU Cap PO SCH ×2 (10:11→17:33)
[2017-11-10] MEDS: Multivitamin Therapeutic Tab PO SCH (10:11)
[2017-11-10] MEDS: Sodium Chloride 0.9% 1,000 ML IV SCH (11:45)
--- NOTE | 2017-11-10 12:53 | CP.PCM.PN ---
<Sanjana Méndez - Last Filed: 11/10/17 12:50> Subjective - Date & Time of Evaluation Date of Evaluation: 11/10/17 Time of Evaluation: 12:50 - Subjective Subjective: Surgery: Dr. Velazquez Pt seen and examined. No acute overnight events. States she's feeling a lot better today and pain is well controlled. She admits to tolerating liquid diet without any issues. Admits to flatus/BM. Denies F/C. Objective - Vital Signs/Intake and Output Vital Signs (last 24 hours): Temp Pulse Resp BP Pulse Ox 97.6 F 68 18 132/81 96 11/10/17 06:00 11/10/17 10:27 11/10/17 06:00 11/10/17 10:27 11/10/17 06:00 Intake and Output: 11/10/17 11/10/17 06:59 18:59 Intake Total 480 Balance 480 - Medications Medications: Current Medications Heparin Sodium (Porcine) (Heparin) 5,000 units SC Q8 [facility] PRN Reason: Protocol Last Admin: 11/09/17 23:28 Dose: Not Given Piperacillin Sod/Tazobactam Sod (Zosyn 3.375 In Ns 100ml) 100 mls @ 200 mls/hr IVPB Q6 [facility] PRN Reason: Protocol Stop: 11/16/17 00:01 Last Admin: 11/10/17 11:46 Dose: 200 mls/hr Insulin Human Lispro (Humalog Low) 0 units SC ACHS [facility] PRN Reason: Protocol Last Admin: 11/10/17 11:39 Dose: 3 units Lactobacillus Acidophilus (Bacid Acidophilus) 1 cap PO BID [facility] Last Admin: 11/10/17 10:11 Dose: 1 cap Lisinopril (Zestril) 2.5 mg PO DAILY [facility] Last Admin: 11/10/17 10:27 Dose: 2.5 mg Morphine Sulfate (Morphine) 2 mg IVP Q4H PRN PRN Reason: Pain, severe (8-10) Multivitamins (Thera Tab) 1 tab PO DAILY [facility] Last Admin: 11/10/17 10:11 Dose: 1 tab - Labs Labs: 11/10/17 06:20 11/10/17 06:20 PT 12.8 SECONDS (9.4-12.5) H 11/09/17 06:45 INR 1.11 (0.93-1.08) H 11/09/17 06:45 APTT 28.2 Seconds (25.1-36.5) 11/09/17 06:45 - Constitutional Appears: Well, No Acute Distress - Eye Exam Eye Exam: Normal appearance - ENT Exam ENT Exam: Mucous Membranes Moist - Respiratory Exam Respiratory Exam: NORMAL BREATHING PATTERN - Cardiovascular Exam Cardiovascular Exam: RRR - GI/Abdominal Exam GI & Abdominal Exam: Soft. absent: Distended, Guarding, Tenderness - Neurological Exam Neurological Exam: Alert, Awake, Oriented x3 - Skin Skin Exam: Dry, Warm Assessment and Plan - Assessment and Plan (Free Text) Assessment: 57F with recurrent diverticulitis Plan: - can advance to FLD - cont ABX - f/u with GI & surgery as outpt when discharged - d/w Dr. Marcus Méndez, PGY-3 <Cruz Velazquez - Last Filed: 11/13/17 22:18> Objective - Vital Signs/Intake and Output Vital Signs (last 24 hours): Temp Pulse Resp BP Pulse Ox 98.4 F 65 18 107/72 97 11/10/17 14:00 11/10/17 14:00 11/10/17 14:00 11/10/17 14:00 11/10/17 14:00 - Labs Labs: 11/10/17 06:20 11/10/17 06:20 PT 12.8 SECONDS (9.4-12.5) H 11/09/17 06:45 INR 1.11 (0.93-1.08) H 11/09/17 06:45 APTT 28.2 Seconds (25.1-36.5) 11/09/17 06:45 Attending/Attestation - Attestation I have fully participated in the care of the patient.: Yes I have reviewed all pertinent clinical information, including history, physical exam and plan: Yes Notes (Text): Pt is improving clinically Tolerating liquid diet IV antibiotics DC plan with PO antibiotics Pt was discharge home before round Plan d.w primary team in detail Risk and benefit explained in detail.
[2017-11-10 14:56] VITALS: BP 107/72; PULSE 65; TEMP 98.4; O2SAT 97
--- NOTE | 2017-11-10 23:58 | PN ---
DATE: 11/10/2017 SUBJECTIVE: Patient is in bed, in no acute distress and patient was seen early this morning in room 566, bed 3. PHYSICAL EXAMINATION: VITAL SIGNS: Temperature 98, blood pressure 107/70, respiratory rate of 18, heart rate of 65. HEENT: Unremarkable. NECK: Supple. LUNGS: Have decreased breath sounds. HEART: Normal S1 and S2. ABDOMEN: Soft, nontender. LABORATORY EXAMINATION: Reveals a white count of 4.9, hemoglobin of 9, platelets of 176. BUN of 6, creatinine 0.7. Urinalysis is noted. Microbiology reveals a blood culture with no growth. ASSESSMENT AND PLAN: A 57-year-old female who was seen early this morning in room 566, bed 3, who is doing much better. Abdominal pain is much improved. Admitted with acute diverticulitis of the sigmoid colon in a diabetic, hypertensive, obese female, on Zosyn, clinically much improved. Isra Suarez MD
--- NOTE | 2017-11-21 14:07 | CP.PCM.DIS ---
<Deepak Malhotra - Last Filed: 11/21/17 14:03> Provider - Provider Date of Admission: 11/08/17 21:08 Attending physician: Chrystal Fox MD Primary care physician: Jossy LU Consults: Surgery: Marcus Time Spent in preparation of Discharge (in minutes): 45 Diagnosis - Discharge Diagnosis (1) Diverticulitis Status: Acute (2) HTN (hypertension) Status: Chronic (3) Diabetes mellitus Status: Chronic (4) Prophylactic measure Status: Acute Hospital Course - Lab Results Lab Results: Most Recent Lab Values WBC 4.9 10^3/ul (4.5-11.0) D 11/10/17 06:20 RBC 3.86 10^6/uL (3.5-6.1) 11/10/17 06:20 Hgb 9.9 g/dL (12.0-16.0) L 11/10/17 06:20 Hct 31.1 % (36.0-48.0) L 11/10/17 06:20 MCV 80.6 fl (80.0-105.0) 11/10/17 06:20 MCH 25.6 pg (25.0-35.0) 11/10/17 06:20 MCHC 31.8 g/dl (31.0-37.0) 11/10/17 06:20 RDW 15.1 % (11.5-14.5) H 11/10/17 06:20 Plt Count 176 10^3/uL (120.0-450.0) 11/10/17 06:20 MPV 9.8 fl (7.0-11.0) 11/10/17 06:20 Gran % 59.1 % (50.0-68.0) 11/10/17 06:20 Lymph % (Auto) 29.9 % (22.0-35.0) 11/10/17 06:20 [place] % (Auto) 7.5 % (1.0-6.0) H 11/10/17 06:20 Eos % (Auto) 3.3 % (1.5-5.0) 11/10/17 06:20 Baso % (Auto) 0.2 % (0.0-3.0) 11/10/17 06:20 Gran # 2.90 (1.4-6.5) 11/10/17 06:20 Lymph # (Auto) 1.5 (1.2-3.4) 11/10/17 06:20 [place] # (Auto) 0.4 (0.1-0.6) 11/10/17 06:20 Eos # (Auto) 0.2 (0.0-0.7) 11/10/17 06:20 Baso # (Auto) 0.01 K/mm3 (0.0-2.0) 11/10/17 06:20 PT 12.8 SECONDS (9.4-12.5) H 11/09/17 06:45 INR 1.11 (0.93-1.08) H 11/09/17 06:45 APTT 28.2 Seconds (25.1-36.5) 11/09/17 06:45 Sodium 144 mmol/L (132-148) 11/10/17 06:20 Potassium 4.0 mmol/L (3.6-5.0) 11/10/17 06:20 Chloride 109 mmol/L (98-107) H 11/10/17 06:20 Carbon Dioxide 26 mmol/L (21-33) 11/10/17 06:20 Anion Gap 14 (10-20) 11/10/17 06:20 BUN 6 mg/dL (7-21) L 11/10/17 06:20 Creatinine 0.7 mg/dl (0.7-1.2) 11/10/17 06:20 Est GFR ( Amer) > 60 11/10/17 06:20 Est GFR (Non-Af Amer) > 60 11/10/17 06:20 POC Glucose (mg/dL) 120 mg/dL (65-110) H 11/10/17 16:12 Random Glucose 162 mg/dL (70-110) H 11/10/17 06:20 Calcium 8.4 mg/dL (8.4-10.5) 11/10/17 06:20 Total Bilirubin 0.9 mg/dL (0.2-1.3) 11/10/17 06:20 AST 18 U/L (14-36) 11/10/17 06:20 ALT 28 U/L (7-56) 11/10/17 06:20 Alkaline Phosphatase 58 U/L (38-126) 11/10/17 06:20 Total Protein 6.1 g/dL (5.8-8.3) 11/10/17 06:20 Albumin 3.3 g/dL (3.0-4.8) 11/10/17 06:20 Globulin 2.8 gm/dL 11/10/17 06:20 Albumin/Globulin Ratio 1.2 (1.1-1.8) 11/10/17 06:20 Lipase 108 U/L (23-300) 11/08/17 18:30 Urine Color Yellow (YELLOW) 11/08/17 18:30 Urine Appearance Clear (CLEAR) 11/08/17 18:30 Urine pH 6.5 (4.7-8.0) 11/08/17 18:30 Ur Specific [place] 1.010 (1.005-1.035) 11/08/17 18:30 Urine Protein Negative mg/dL (<30 mg/dL) 11/08/17 18:30 Urine Glucose (UA) Negative mg/dL (NEGATIVE) 11/08/17 18:30 Urine Ketones Negative mg/dL (NEGATIVE) 11/08/17 18:30 Urine Blood Negative (NEGATIVE) 11/08/17 18:30 Urine Nitrate Negative (NEGATIVE) 11/08/17 18:30 Urine Bilirubin Negative (NEGATIVE) 11/08/17 18:30 Urine Urobilinogen 0.2 E.U./dL (<1 E.U./dL) 11/08/17 18:30 Ur Leukocyte Esterase Negative [place]/uL (NEGATIVE) 11/08/17 18:30 - Hospital Course Hospital Course: On admission: 57 year old female with past medical history of HTN, DM2, diverticulosis, hx of diverticulitis who presents with abdominal pain for the past 3 days. Patient reports the pain as sharp, constant starting in her LLQ with radiation to her LUQ and into her left side. Patient reports nausea and inability to tolerate bland food diet. Patient was admitted to [facility] for diverticulitis in August of 2017 for diverticulitis. She was treated with IV antibiotics and instructed to follow up outpatient with GI clinic in [facility]. Patient indicates she has an appointment November 18. Patient denies fever, chills, diarrhea, bloody stool, constipation, bloody stool, dizziness, weakness, dizziness. 12 point ROS otherwise mentioned in HPI is benign. Hospital course: Patient had CT that showed Diverticulitis. She was started on antibiotics and pain soon resolved. She was able to tolerate a soft diet. GI and Surgery was consulted. GI advised colonoscopy in 4-6 months and follow up with surgery for evaluation as this is her second episode of diverticulitis. The remained of her stay was uncomplicated. Discharge Exam - Head Exam Head Exam: ATRAUMATIC, NORMAL INSPECTION, NORMOCEPHALIC - Eye Exam Eye Exam: EOMI, Normal appearance, PERRL Pupil Exam: NORMAL ACCOMODATION, PERRL - Respiratory Exam Respiratory Exam: Clear to PA & Lateral, NORMAL BREATHING PATTERN, UNREMARKABLE - Cardiovascular Exam Cardiovascular Exam: REGULAR RHYTHM - GI/Abdominal Exam GI & Abdominal Exam: Normal Bowel Sounds, Soft, Unremarkable. absent: Distended , Tenderness - Neurological Exam Neurological exam: Alert, CN II-XII Intact, Normal Gait, Oriented x3, Reflexes Normal - Psychiatric Exam Psychiatric exam: Normal Affect, Normal Mood - Skin Skin Exam: Dry, Intact, Normal Color, Warm Discharge Plan - Discharge Medications Prescriptions: RX: Ciprofloxacin HCl [Cipro] 500 mg PO BID 7 Days tablet RX: Lactobacillus Acidophilus [Bacid Acidophilus] 1 cap PO BID 37 Days cap RX: Metronidazole [Flagyl] 500 mg PO Q6H 7 Days tablet - Follow Up Plan Condition: FAIR Disposition: HOME/ ROUTINE Instructions: Smoking: Not Just Harmful to Your Lungs and Heart, Dangers of Secondhand Smoke, Diverticulitis (DC), Diabetes Type 2 (DC), Diabetes and Diet, Hypertension (DC), Hypertension (GEN) Additional Instructions: Please follow up with Dr. Velazquez as an outpatient. I have attached his office information. Please call to make an appointment. Please keep you follow up appointment with your GI doctor. Please schedule outpatient colonoscopy Please follow up with your primary care doctor in 7-10 days Please continue taking cipro and flagyl for 7 days as prescribed. Please also take probiotic for 37 days as prescribed. Please come back to the ED if symptoms return Please only take Metformin at night if you sugar is above 100 until you resume a regular diet. Please check your sugars in the morning and evening for the next 7 days. If your sugar is below 100 hold your night dose of metformin. Please continue eating a soft diet and advance diet slowly as tolerated. Referrals: Cruz Velazquez MD [Medical Doctor] - Jossy Gannon APN-C [Primary Care Provider] - <Chrystal Fox - Last Filed: 11/22/17 12:40> Provider - Provider Date of Admission: 11/08/17 21:08 Attending physician: Chrystal Fox MD Primary care physician: Jossy Gannon [facility] Hospital Course - Lab Results Lab Results: Most Recent Lab Values WBC 4.9 10^3/ul (4.5-11.0) D 11/10/17 06:20 RBC 3.86 10^6/uL (3.5-6.1) 11/10/17 06:20 Hgb 9.9 g/dL (12.0-16.0) L 11/10/17 06:20 Hct 31.1 % (36.0-48.0) L 11/10/17 06:20 MCV 80.6 fl (80.0-105.0) 11/10/17 06:20 MCH 25.6 pg (25.0-35.0) 11/10/17 06:20 MCHC 31.8 g/dl (31.0-37.0) 11/10/17 06:20 RDW 15.1 % (11.5-14.5) H 11/10/17 06:20 Plt Count 176 10^3/uL (120.0-450.0) 11/10/17 06:20 MPV 9.8 fl (7.0-11.0) 11/10/17 06:20 Gran % 59.1 % (50.0-68.0) 11/10/17 06:20 Lymph % (Auto) 29.9 % (22.0-35.0) 11/10/17 06:20 [place] % (Auto) 7.5 % (1.0-6.0) H 11/10/17 06:20 Eos % (Auto) 3.3 % (1.5-5.0) 11/10/17 06:20 Baso % (Auto) 0.2 % (0.0-3.0) 11/10/17 06:20 Gran # 2.90 (1.4-6.5) 11/10/17 06:20 Lymph # (Auto) 1.5 (1.2-3.4) 11/10/17 06:20 [place] # (Auto) 0.4 (0.1-0.6) 11/10/17 06:20 Eos # (Auto) 0.2 (0.0-0.7) 11/10/17 06:20 Baso # (Auto) 0.01 K/mm3 (0.0-2.0) 11/10/17 06:20 PT 12.8 SECONDS (9.4-12.5) H 11/09/17 06:45 INR 1.11 (0.93-1.08) H 11/09/17 06:45 APTT 28.2 Seconds (25.1-36.5) 11/09/17 06:45 Sodium 144 mmol/L (132-148) 11/10/17 06:20 Potassium 4.0 mmol/L (3.6-5.0) 11/10/17 06:20 Chloride 109 mmol/L (98-107) H 11/10/17 06:20 Carbon Dioxide 26 mmol/L (21-33) 11/10/17 06:20 Anion Gap 14 (10-20) 11/10/17 06:20 BUN 6 mg/dL (7-21) L 11/10/17 06:20 Creatinine 0.7 mg/dl (0.7-1.2) 11/10/17 06:20 Est GFR ( Amer) > 60 11/10/17 06:20 Est GFR (Non-Af Amer) > 60 11/10/17 06:20 POC Glucose (mg/dL) 120 mg/dL (65-110) H 11/10/17 16:12 Random Glucose 162 mg/dL (70-110) H 11/10/17 06:20 Calcium 8.4 mg/dL (8.4-10.5) 11/10/17 06:20 Total Bilirubin 0.9 mg/dL (0.2-1.3) 11/10/17 06:20 AST 18 U/L (14-36) 11/10/17 06:20 ALT 28 U/L (7-56) 11/10/17 06:20 Alkaline Phosphatase 58 U/L (38-126) 11/10/17 06:20 Total Protein 6.1 g/dL (5.8-8.3) 11/10/17 06:20 Albumin 3.3 g/dL (3.0-4.8) 11/10/17 06:20 Globulin 2.8 gm/dL 11/10/17 06:20 Albumin/Globulin Ratio 1.2 (1.1-1.8) 11/10/17 06:20 Lipase 108 U/L (23-300) 11/08/17 18:30 Urine Color Yellow (YELLOW) 11/08/17 18:30 Urine Appearance Clear (CLEAR) 11/08/17 18:30 Urine pH 6.5 (4.7-8.0) 11/08/17 18:30 Ur Specific [place] 1.010 (1.005-1.035) 11/08/17 18:30 Urine Protein Negative mg/dL (<30 mg/dL) 11/08/17 18:30 Urine Glucose (UA) Negative mg/dL (NEGATIVE) 11/08/17 18:30 Urine Ketones Negative mg/dL (NEGATIVE) 11/08/17 18:30 Urine Blood Negative (NEGATIVE) 11/08/17 18:30 Urine Nitrate Negative (NEGATIVE) 11/08/17 18:30 Urine Bilirubin Negative (NEGATIVE) 11/08/17 18:30 Urine Urobilinogen 0.2 E.U./dL (<1 E.U./dL) 11/08/17 18:30 Ur Leukocyte Esterase Negative [place]/uL (NEGATIVE) 11/08/17 18:30 Attending/Attestation - Attestation I have personally seen and examined this patient.: Yes I have fully participated in the care of the patient.: Yes I have reviewed all pertinent clinical information, including history, physical exam and plan: Yes Notes (Text): 11/22/17 12:36 Medical record note made by the resident after discussion with my direction and input after the patient was personally seen and examined by me. I have reviewed the chart and agree that the record accurately reflects by personal performance of the history, physical exam, data review, and medical decision-making, in the course for the patient. I have also personally directed the plan of care. 57 year old female with past medical history of HTN, DM2, diverticulosis, hx of diverticulitis who presents with abdominal pain found to have recurrent Diverticulitisof sigmoid colon. She was treated with IV antibiotics ,she has responded well, pain has resolved. She was able to tolerate a soft diet. . GI advised colonoscopy in 6 weeks and follow up with surgery for evaluation as this is her second episode of diverticulitis Patient indicates she has an scheduled GI appointment on November 18. She will be discharged home on oral antibiotics and will follow up with GI ,PCP and surgery. Management plan was discussed in detail with patient. Education was provided.
== END 2017-11-10 20:38 | disposition home or self-care (01) | DRG 183 ==
LOC: ED 17:06 → ERH 21:08 → 5RNO 23:07
PROVIDERS: ADMIT Internal Medicine; ATTEND Internal Medicine
DX: K57.32 Diverticulitis of large intestine without perforation or abscess without bleeding (principal); E11.9 Type 2 diabetes mellitus without complications; I10 Essential (primary) hypertension; K76.0 Fatty (change of) liver, not elsewhere classified; R16.0 Hepatomegaly, not elsewhere classified; E66.9 Obesity, unspecified; Z68.37 Body mass index [BMI] 37.0-37.9, adult; Z90.710 Acquired absence of both cervix and uterus

== ENCOUNTER 2018-02-06 16:30 | Inpatient (IN) | payer MEDICAID, OTHER ==
--- NOTE | 2018-02-06 16:51 | ED PDOC ---
Arrival/HPI - General Time Seen by Provider: 02/06/18 16:48 Historian: Patient - History of Present Illness Narrative History of Present Illness (Text): 02/06/18 16:49 57 year old female, whose PMH includes Hypertension, Diabetes, and diverticulitis, who presents to the emergency department complaining of persistent abdominal pain that radiates to the left side of back since 3 days. Patient reports the pain is mainly on the left lower quadrant with associated nausea and belching. She denies emesis, chest pain, shortness of breath or dizziness. She notes presenting to the emergency department previously with similar symptoms and being diagnosed with colitis and discharged home with antibiotics. Patient is schedule for colonoscopy in February and states taking Advil for the pain one day ago. Patient denies chills, chest pain, shortness of breath, headache, dizziness, dysuria, stool changes, hematuria, or other complaints. PCP: Dr. Quintero 02/06/18 18:55 Time/Duration: < week Symptom Onset: Sudden Symptom Course: Unchanged Quality: Cramping Severity Level: 10 Activities at Onset: Eating Context: Home Past Medical History - Provider Review Nursing Documentation Reviewed: Yes - Infectious Disease Hx of Infectious Diseases: None - Cardiac Hx Cardiac Disorders: No Hx Hypertension: Yes - Pulmonary Hx Respiratory Disorders: No - Neurological Hx Neurological Disorder: No - HEENT Hx HEENT Disorder: No - Renal Hx Renal Disorder: No - Endocrine/Metabolic Hx Endocrine Disorders: No Hx Diabetes Mellitus Type 2: Yes - Hematological/Oncological Hx Blood Disorders: No - Integumentary Hx Dermatological Disorder: No - Musculoskeletal/Rheumatological Hx Arthritis: Yes - Gastrointestinal Hx Gastrointestinal Disorders: Yes Hx Diverticulitis: Yes - Genitourinary/Gynecological Hx Genitourinary Disorders: No - Psychiatric Hx Psychophysiologic Disorder: No Hx Depression: No Hx Emotional Abuse: No Hx Physical Abuse: No Hx Substance Use: No - Surgical History Hx Hysterectomy: Yes (PARTIAL) - Anesthesia Hx Anesthesia: No - Suicidal Assessment Feels Threatened In Home Enviroment: No Family/Social History - Physician Review Nursing Documentation Reviewed: Yes Family/Social History: Unknown Family HX Smoking Status: Never Smoked Hx Alcohol Use: No Hx Substance Use: No Allergies/Home Meds Allergies/Adverse Reactions: Allergies EGG Allergy (Verified 11/08/17 17:21) ANAPHYLAXIS Home Medications: Home Meds Medication Instructions Recorded Confirmed Ergocalciferol (Vitamin D2) 50,000 units PO QD7 08/31/17 02/06/18 [Vitamin D2] Multivitamin [Multivitamins] 1 each PO DAILY 08/31/17 02/06/18 Review of Systems - Review of Systems Constitutional: Fatigue. absent: Fevers ENT: absent: Sinus Congestion Respiratory: absent: SOB Cardiovascular: absent: Chest Pain Gastrointestinal: Abdominal Pain (left lower quadrant), Nausea. absent: Stool Changes, Vomiting Genitourinary Female: absent: Dysuria Musculoskeletal: Back Pain (left lower back) Neurological: absent: Headache Physical Exam Vital Signs Reviewed: Yes Vital Signs Temp Pulse Resp BP Pulse Ox 02/06/18 23:05 98.3 F 79 18 105/67 99 02/06/18 16:45 100.2 F H 110 H 20 131/90 96 Temperature: Febrile Blood Pressure: Normal Pulse: Tachycardic Respiratory Rate: Normal Appearance: Positive for: Well-Appearing, Non-Toxic, Comfortable Pain Distress: None Mental Status: Positive for: Alert and Oriented X 3 - Systems Exam Head: Present: Atraumatic, Normocephalic Pupils: Present: PERRL Extroacular Muscles: Present: EOMI Conjunctiva: Present: Normal Respiratory/Chest: Present: Clear to Auscultation, Good Air Exchange. No: Respiratory Distress, Accessory Muscle Use, Wheezes, Rales, Retracting, Rhonchi Cardiovascular: Present: Tachycardic. No: Regular Rate and Rhythm, Murmurs Abdomen: Present: Tenderness (suprpubic tenderness on LLQ), Normal Bowel Sounds. No: Distention, Peritoneal Signs, Rebound, Guarding Back: Present: Paraspinal Tenderness (lumbar tenderness). No: CVA Tenderness Neurological: Present: GCS=15, CN II-XII Intact, Speech Normal Skin: Present: Warm, Dry, Normal Color. No: Rashes Psychiatric: Present: Alert, Oriented x 3, Normal Insight, Normal Concentration Medical Decision Making ED Course and Treatment: 02/06/18 Impression: 57 year old female with LLQ tenderness, tachycardic, and paraspinal back tenderness complaining of abdominal pain and nausea since 3 days. Given patient has been experiencing symptoms of LLQ pain and back tenderness, I am most concerned for an intraabdominal process such as diverticulitis or colitis. Differential Diagnosis included but are not limited to: Colitis Diverticulitis Kidney stone Gastritis AAA Plan: -- CT abdomen and pelvis -- Labs -- Pepcid, Zofran, Maalox --Toradol -- Urinalysis -- Reassess and disposition Prior Visits: Notes and results from previous visits were reviewed. Progress Notes: 02/06/18 18:59 Labs reviewed with slight leukocytosis of 12.1 with shift noted. UA does not show any evidence of bacteria within the urine. Cipro & Flaygyl ordered for suspected intraabdominal pathology. Pending CT abdomen. 02/06/18 19:[address] Meadows pending CT a/p and final dispositioning. 02/07/18 16:46 - Lab Interpretations Lab Results: 02/06/18 17:30 02/06/18 17:30 Lab Results 02/06/18 17:30: Urine Color Light yellow, Urine Appearance Clear, Urine pH 7.5, Ur Specific [place] 1.010, Urine Protein Negative, Urine Glucose (UA) Negative, Urine Ketones Negative, Urine Blood Negative, Urine Nitrate Negative, Urine Bilirubin Negative, Urine Urobilinogen 0.2, Ur Leukocyte Esterase Negative 02/06/18 17:30: Sodium 137, Potassium 4.7, Chloride 97 L, Carbon Dioxide 28, Anion Gap 16, BUN 10, Creatinine 0.5 L, Est GFR ( Amer) > 60, Est GFR ( Non-Af Amer) > 60, Random Glucose 252 H, Calcium 9.3, Magnesium 2.0, Total Bilirubin 0.9, AST 36, ALT 28, Alkaline Phosphatase 84, Total Protein 8.2, Albumin 4.6, Globulin 3.7, Albumin/Globulin Ratio 1.2, Lipase 85 02/06/18 17:30: PT 12.0, INR 1.05, APTT 27.4 02/06/18 17:30: WBC 12.1 H D, RBC 4.58, Hgb 12.0, Hct 36.1, MCV 78.8 L, MCH 26.2 , MCHC 33.2, RDW 14.3, Plt Count 252, MPV 9.8, Gran % 79.9 H, Lymph % (Auto) 13.7 L, [place] % (Auto) 5.0, Eos % (Auto) 1.3 L, Baso % (Auto) 0.1, Gran # 9.69 H , Lymph # (Auto) 1.7, [place] # (Auto) 0.6, Eos # (Auto) 0.2, Baso # (Auto) 0.01 I have reviewed the lab results: Yes - RAD Interpretation Radiology Orders: 02/06/18 17:04 ABD PELVIS PO & IV CONTRAST [CT] Stat Colorer Machine: Radiologist - Medication Orders Current Medication Orders: Docusate Sodium (Colace) 100 mg PO BID [facility] Last Admin: 02/07/18 09:41 Dose: 100 mg Last Bowel Movement Document 02/07/18 09:41 [place] (Rec: 02/07/18 09:41 [place] [id number] Last Bowel Movement Last Bowel Movement 02/05/18 Ergocalciferol (Drisdol 50,000 Intl Units Cap) 1 cap PO QD7 YOBANY Last Admin: 02/07/18 08:12 Dose: 1 cap Metronidazole (Flagyl) 500 mg in 100 mls @ 100 mls/hr IVPB Q8 YOBANY PRN Reason: Protocol Last Admin: 02/07/18 13:02 Dose: 100 mls/hr eMAR Start Stop Document 02/07/18 13:02 [place]AR (Rec: 02/07/18 13:03 [place] [id number] Intravenous Solution Start Date 02/07/18 Start Time 13:02 Sodium Chloride (Sodium Chloride 0.9%) 1,000 mls @ 100 mls/hr IV .Q10H [facility] Last Admin: 02/07/18 12:08 Dose: 100 mls/hr eMAR Start Stop Document 02/07/18 12:08 [place]AR (Rec: 02/07/18 12:08 [place] [id number] Intravenous Solution Start Date 02/07/18 Start Time 12:08 Piperacillin Sod/Tazobactam Sod (Zosyn 3.375 In Ns 100ml) 100 mls @ 200 mls/hr IVPB Q6 YOBANY PRN Reason: Protocol Stop: 02/14/18 07:01 Last Admin: 02/07/18 12:07 Dose: 200 mls/hr eMAR Start Stop Document 02/07/18 12:07 [place] (Rec: 02/07/18 12:07 [place] [id number] Intravenous Solution Start Date 02/07/18 Start Time 12:07 Insulin Human Lispro (Humalog Med) 0 units SC ACHS YOBANY PRN Reason: Protocol Last Admin: 02/07/18 12:07 Dose: 5 unit MAR Blood Glucose Document 02/07/18 12:07 [place] (Rec: 02/07/18 12:07 [place] [id number] Blood Glucose Finger Stick Blood Glucose (70-120) 272 Subcutaneous Administrations Document 02/07/18 12:07 [place]AR (Rec: 02/07/18 12:07 [place] [id number] Injection Site MAR Injection Site Right Arm Charges for Administration # of Subcutaneous Administrations 1 Lisinopril (Zestril) 2.5 mg PO DAILY [facility] Last Admin: 02/07/18 09:41 Dose: 2.5 mg MAR Pulse and Blood Pressure Document 02/07/18 09:41 [place]AR (Rec: 02/07/18 09:42 [place] [id number]) Pulse Pulse Rate (60-90) 78 Blood Pressure Blood Pressure (100/60-150/90) 117/68 Morphine Sulfate (Morphine) 2 mg IVP Q4H PRN PRN Reason: Pain, severe (8-10) Multivitamins (Thera Tab) 1 tab PO DAILY [facility] Last Admin: 02/07/18 09:42 Dose: 1 tab Pantoprazole Sodium (Protonix Inj) 40 mg IVP DAILY [facility] Last Admin: 02/07/18 09:41 Dose: 40 mg IVP Administration Document 02/07/18 09:41 [place]AR (Rec: 02/07/18 09:41 [place] [id number] Charges for Administration # of IVP Administrations 1 Discontinued Medications Al Hydrox/Mg Hydrox/Simethicone (Maalox Plus 30 Ml) 30 ml PO STAT STA Stop: 02/06/18 17:08 Last Admin: 02/06/18 17:18 Dose: 30 ml Diphenhydramine HCl (Benadryl) 25 mg IVP STAT STA Stop: 02/06/18 23:37 Last Admin: 02/06/18 23:43 Dose: 25 mg IVP Administration Document 02/06/18 23:43 [facility] (Rec: 02/06/18 23:43 [id number] Charges for Administration # of IVP Administrations 1 Famotidine (Pepcid) 20 mg IVP STAT STA Stop: 02/06/18 17:05 Last Admin: 02/06/18 17:18 Dose: 20 mg IVP Administration Document 02/06/18 17:18 SF (Rec: 02/06/18 17:18 [email or web address] Charges for Administration # of IVP Administrations 1 Sodium Chloride (Sodium Chloride 0.9%) 1,000 mls @ 1,000 mls/hr IV .Q1H STA Stop: 02/06/18 18:03 Last Admin: 02/06/18 17:18 Dose: 1,000 mls/hr eMAR Start Stop Document 02/06/18 17:18 SF (Rec: 02/06/18 17:18 [email or web address] Intravenous Solution Start Date 02/06/18 Start Time 17:18 End Date 02/06/18 End time 18:18 Total Infusion Time 60 Ciprofloxacin (Cipro 400mg/200ml Dsw) 400 mg in 200 mls @ 133.3 mls/hr IVPB STAT STA PRN Reason: Protocol Stop: 02/06/18 20:37 Last Admin: 02/06/18 21:28 Dose: 133.3 mls/hr eMAR Start Stop Document 02/06/18 21:28 EQ (Rec: 02/06/18 21:29 EQ [id number]) Intravenous Solution Start Date 02/06/18 Start Time 21:28 Metronidazole (Flagyl) 500 mg in 100 mls @ 100 mls/hr IVPB STAT STA PRN Reason: Protocol Stop: 02/06/18 20:08 Last Admin: 02/06/18 20:22 Dose: 100 mls/hr eMAR Start Stop Document 02/06/18 20:22 SF (Rec: 02/06/18 20:22 [email or web address] Intravenous Solution Start Date 02/06/18 Start Time 20:22 End Date 02/06/18 End time 21:22 Total Infusion Time 60 Ketorolac Tromethamine (Toradol) 30 mg IVP STAT STA Stop: 02/06/18 19:32 Last Admin: 02/06/18 20:21 Dose: 30 mg MAR Pain Assessment Document 02/06/18 20:21 SF (Rec: 02/06/18 20:22 [email or web address] Pain Reassessment Is this a pain reassessment? Yes Sleep Is patient sleeping during reassessment? No Presence of Pain Presence of Pain Yes IVP Administration Document 02/06/18 20:21 SF (Rec: 02/06/18 20:22 [email or web address] Charges for Administration # of IVP Administrations 1 Ondansetron HCl (Zofran Inj) 4 mg IVP STAT STA Stop: 02/06/18 17:05 Last Admin: 02/06/18 17:18 Dose: 4 mg IVP Administration Document 02/06/18 17:18 SF (Rec: 02/06/18 17:18 [email or web address] Charges for Administration # of IVP Administrations 1 - Scribe Statement The provider has reviewed the documentation as recorded by the Scribe Scribe Attestation: Kathy Barrett MD Scribe Attestation: All medical record entries made by the Scribe were at my direction and personally dictated by me. I have reviewed the chart and agree that the record accurately reflects my personal performance of the history, physical exam, medical decision making, and the department course for this patient. I have also personally directed, reviewed, and agree with the discharge instructions and disposition. Disposition/Present on Arrival - Present on Arrival Any Indicators Present on Arrival: No History of DVT/PE: No History of Uncontrolled Diabetes: Yes Urinary Catheter: No History Surgical Site Infection Following: None - Disposition Have Diagnosis and Disposition been Completed?: No Diagnosis: Abdominal pain, acute, Diverticulitis Disposition: HOSPITALIZED Disposition Time: 21:14 Patient Problems: Current Active Problems Problem Status Onset Diverticulitis Acute Abdominal pain, acute Acute Condition: STABLE
[2018-02-06] MEDS ORDERED: Sodium Chloride 0.9% 1,000 ML IV STA (17:04)
[2018-02-06] MEDS ORDERED: Alum-Mag Hydrox-Simethicone Susp (30 mL) PO STA (17:07)
[2018-02-06] MEDS ORDERED: Iohexol 350 MG/100 ML VIAL ONE (17:14)
[2018-02-06 17:58] LABS: PH,URINE 7.5 (4.7-8.0); URINE BILIRUBIN NEGATIVE (NEGATIVE); URINE BLOOD NEGATIVE (NEGATIVE); URINE GLUCOSE (UA) NEGATIVE (NEGATIVE); URINE LEUKOCYTE ESTERASE NEGATIVE Leu/uL (NEGATIVE); URINE PROTEIN NEGATIVE mg/dL (<30 mg/dL); URINE UROBILINOGEN 0.2 E.U./dL (<1 E.U./dL)
[2018-02-06 18:01] LABS: URINE APPEARANCE CLEAR (CLEAR); URINE COLOR LIGHT YELLOW (YELLOW)
[2018-02-06 18:03] LABS: CALCIUM 9.3 mg/dL (8.4-10.5); GFR AFRICAN-AMERICAN > 60; GFR NON-AFRICAN AMERICAN > 60; LIPASE 85 U/L (23-300)
[2018-02-06 18:05] LABS: BASO # 0.01 K/mm3 (0.0-2.0); BASO % 0.1 % (0.0-3.0); EOS # 0.2 (0.0-0.7); EOS % 1.3 % (1.5-5.0); GRAN # 9.69 (1.4-6.5); GRAN % 79.9 % (50.0-68.0); INR 1.05; LYMPH # 1.7 (1.2-3.4); LYMPH % 13.7 % (22.0-35.0); MEAN CELL VOLUME 78.8 fl (80.0-105.0); MEAN CORPUSCULAR HEMOGLOBIN 26.2 pg (25.0-35.0); MEAN CORPUSCULAR HGB CONC 33.2 g/dl (31.0-37.0); MEAN PLATELET VOLUME 9.8 fl (7.0-11.0); MONO # 0.6 (0.1-0.6); PARTIAL THROMBOPLASTIN TIME 27.4 Seconds (25.1-36.5); RBC 4.58 10^6/uL (3.5-6.1); RED CELL DISTRIBUTION WIDTH 14.3 % (11.5-14.5); WHITE BLOOD COUNT 12.1 10^3/ul (4.5-11.0)
[2018-02-06 18:52] LABS: ALB/GLOB RATIO 1.2 (1.1-1.8); ALBUMIN 4.6 g/dL (3.0-4.8); ALT/SGPT 28 U/L (7-56); AST/SGOT 36 U/L (14-36); BLOOD UREA NITROGEN 10 mg/dL (7-21)
[2018-02-06] MEDS ORDERED: Ciprofloxacin 400mg/200ml D5W 400 MG/200 ML BAG IVPB STA (19:07)
[2018-02-06] MEDS ORDERED: metroNIDAZOLE IV 500 mg/100 ml 500 MG/100 ML BAG IVPB STA (19:09)
--- NOTE | 2018-02-06 21:26 | ED PDOC ---
Physical Exam Vital Signs Temp Pulse Resp BP Pulse Ox 02/06/18 16:45 100.2 F H 110 H 20 131/90 96 Medical Decision Making ED Course and Treatment: 02/06/18 21:00 Case endorsed to me by Dr. Connell, pending CT Abdomen and Pelvis, re- evaluation, and disposition. Pt, whose past medical history includes hypertension, diabetes, and diverticulitis, presented for abdominal pain and nausea. 02/06/18 22:11 CT Abdomen and Pelvis reviewed, shows: Lung bases: Unremarkable. No mass. No consolidation. ABDOMEN: Liver: fatty Infiltration of the liver. Gallbladder and bile ducts: Unremarkable. No calcified stones. No ductal dilation. Pancreas: Pancreas evaluation is limited. No ductal dilation. Spleen: Unremarkable. No splenomegaly. Adrenals: Unremarkable. No mass. Kidneys and ureters: Unremarkable. No solid mass. No hydronephrosis. Stomach and bowel: There is sigmoid diverticulosis with infiltration of fat noted, the findings are suspicious for diverticulitis. No abscess formation. There is sigmoid colonic wall thickening noted. No significant change compared to prior exam. Bowel evaluation is limited due to lack of distention. PELVIS: Appendix: No findings to suggest acute appendicitis. Bladder: Unremarkable. No mass. Reproductive: Unremarkable as visualized. ABDOMEN and PELVIS: Intraperitoneal space: Unremarkable. No free air. No significant fluid collection. Bones/joints: No acute fracture. No dislocation. Soft tissues: Unremarkable. Vasculature: Unremarkable. No abdominal aortic aneurysm. Lymph nodes: Unremarkable. No enlarged lymph nodes. IMPRESSION: There is sigmoid diverticulosis with infiltration of fat noted, the findings are suspicious for diverticulitis. No abscess formation. There is sigmoid colonic wall thickening noted. No significant change compared to prior exam. 02/06/18 22:19 Case discussed with pediatrician/medical doctor application software developer, who is aware and agrees with plan. Case discussed with Dr. Mayers, house physician, who is aware and agrees with plan. Accepts pt in to hospitalist service. Pt will be admitted to [facility] for diverticulitis. - Lab Interpretations Lab Results: 02/06/18 17:30 02/06/18 17:30 Lab Results 02/06/18 17:30: Urine Color Light yellow, Urine Appearance Clear, Urine pH 7.5, Ur Specific [place] 1.010, Urine Protein Negative, Urine Glucose (UA) Negative, Urine Ketones Negative, Urine Blood Negative, Urine Nitrate Negative, Urine Bilirubin Negative, Urine Urobilinogen 0.2, Ur Leukocyte Esterase Negative 02/06/18 17:30: Sodium 137, Potassium 4.7, Chloride 97 L, Carbon Dioxide 28, Anion Gap 16, BUN 10, Creatinine 0.5 L, Est GFR ( Amer) > 60, Est GFR ( Non-Af Amer) > 60, Random Glucose 252 H, Calcium 9.3, Magnesium 2.0, Total Bilirubin 0.9, AST 36, ALT 28, Alkaline Phosphatase 84, Total Protein 8.2, Albumin 4.6, Globulin 3.7, Albumin/Globulin Ratio 1.2, Lipase 85 02/06/18 17:30: PT 12.0, INR 1.05, APTT 27.4 02/06/18 17:30: WBC 12.1 H D, RBC 4.58, Hgb 12.0, Hct 36.1, MCV 78.8 L, MCH 26.2 , MCHC 33.2, RDW 14.3, Plt Count 252, MPV 9.8, Gran % 79.9 H, Lymph % (Auto) 13.7 L, [place] % (Auto) 5.0, Eos % (Auto) 1.3 L, Baso % (Auto) 0.1, Gran # 9.69 H , Lymph # (Auto) 1.7, [place] # (Auto) 0.6, Eos # (Auto) 0.2, Baso # (Auto) 0.01 - RAD Interpretation Radiology Orders: 02/06/18 17:04 ABD PELVIS PO & IV CONTRAST [CT] Stat Darkroom Technician: Radiologist - Medication Orders Current Medication Orders: Discontinued Medications Al Hydrox/Mg Hydrox/Simethicone (Maalox Plus 30 Ml) 30 ml PO STAT STA Stop: 02/06/18 17:08 Last Admin: 02/06/18 17:18 Dose: 30 ml Famotidine (Pepcid) 20 mg IVP STAT STA Stop: 02/06/18 17:05 Last Admin: 02/06/18 17:18 Dose: 20 mg IVP Administration Document 02/06/18 17:18 SF (Rec: 02/06/18 17:18 [email or web address] Charges for Administration # of IVP Administrations 1 Sodium Chloride (Sodium Chloride 0.9%) 1,000 mls @ 1,000 mls/hr IV .Q1H STA Stop: 02/06/18 18:03 Last Admin: 02/06/18 17:18 Dose: 1,000 mls/hr eMAR Start Stop Document 02/06/18 17:18 SF (Rec: 02/06/18 17:18 SF [email or web address] Intravenous Solution Start Date 02/06/18 Start Time 17:18 End Date 02/06/18 End time 18:18 Total Infusion Time 60 Ciprofloxacin (Cipro 400mg/200ml Dsw) 400 mg in 200 mls @ 133.3 mls/hr IVPB STAT STA PRN Reason: Protocol Stop: 02/06/18 20:37 Last Admin: 02/06/18 21:28 Dose: 133.3 mls/hr eMAR Start Stop Document 02/06/18 21:28 EQ (Rec: 02/06/18 21:29 EQ [id number]) Intravenous Solution Start Date 02/06/18 Start Time 21:28 Metronidazole (Flagyl) 500 mg in 100 mls @ 100 mls/hr IVPB STAT STA PRN Reason: Protocol Stop: 02/06/18 20:08 Last Admin: 02/06/18 20:22 Dose: 100 mls/hr eMAR Start Stop Document 02/06/18 20:22 SF (Rec: 02/06/18 20:22 SF [email or web address] Intravenous Solution Start Date 02/06/18 Start Time 20:22 End Date 02/06/18 End time 21:22 Total Infusion Time 60 Ketorolac Tromethamine (Toradol) 30 mg IVP STAT STA Stop: 02/06/18 19:32 Last Admin: 02/06/18 20:21 Dose: 30 mg MAR Pain Assessment Document 02/06/18 20:21 SF (Rec: 02/06/18 20:22 SF [email or web address] Pain Reassessment Is this a pain reassessment? Yes Sleep Is patient sleeping during reassessment? No Presence of Pain Presence of Pain Yes IVP Administration Document 02/06/18 20:21 SF (Rec: 02/06/18 20:22 SF [email or web address] Charges for Administration # of IVP Administrations 1 Ondansetron HCl (Zofran Inj) 4 mg IVP STAT STA Stop: 02/06/18 17:05 Last Admin: 02/06/18 17:18 Dose: 4 mg IVP Administration Document 02/06/18 17:18 SF (Rec: 02/06/18 17:18 [email or web address]) Charges for Administration # of IVP Administrations 1 Disposition/Present on Arrival - Present on Arrival Any Indicators Present on Arrival: No History of DVT/PE: No History of Uncontrolled Diabetes: Yes Urinary Catheter: No History of Decub. Ulcer: No History Surgical Site Infection Following: None - Disposition Have Diagnosis and Disposition been Completed?: Yes Diagnosis: Abdominal pain, acute, Diverticulitis Disposition: HOSPITALIZED Disposition Time: 22:19 Patient Plan: Admission Patient Problems: Current Active Problems Problem Status Onset Abdominal pain, acute Acute Diverticulitis Acute Condition: STABLE Discharge Instructions (ExitCare): Acute Abdominal Pain (ED) Referrals: Dagoberto Aguila MD [Primary Care Provider] - Follow up with primary
--- NOTE | 2018-02-06 22:45 | CP.PCM.HP ---
<Hunter Ortiz - Last Filed: 02/06/18 23:25> History of Present Illness - History of Present Illness History of Present Illness: 57 year old female with past medical history of HTN, DM2, diverticulosis, hx of diverticulitis who presents with lower abdominal pain which began Vini evening. Patient states the pain is sharp, initially a 10/10 constant starting in her LLQ with some radiation to left back area. Patient reports she has nausea but no vomiting or blood in stool. Patient was admitted to [facility] for diverticulitis twice this year. She was treated with antibiotics and instructed to follow up outpatient with GI clinic in [facility]. In the clinic she is scheduled to have a colonoscopy and EGD in February. Patient denies any fever , chills, diarrhea, bloody stool, constipation, weakness or any other complaints at this time. PMH: HTN, DM2, Diverticulitis PSH: Partial hysterectomy due to uterine bleeding in 2001 SOCHx: Denies Tobacco, ETOH, or illicit drug use Allergy: Eggs MEDS: - Lisinopril - Metformin - MVI PMD: Dr. Douglass , [facility] Clinic Present on Admission - Present on Admission Any Indicators Present on Admission: No Review of Systems - Constitutional Constitutional: absent: Chills, Fatigue, Fever, Lethargy, Night Sweats, Weight Gain - EENT Eyes: absent: Blind Spots, Blurred Vision, Change in Vision Nose/Mouth/Throat: absent: Nasal Congestion, Nasal Discharge, Nasal Obstruction - Cardiovascular Cardiovascular: absent: Chest Pain, Chest Pain with Activity, Claudication, Dyspnea on Exertion - Respiratory Respiratory: absent: Cough, Dyspnea, Wheezing - Gastrointestinal Gastrointestinal: Abdominal Pain, Belching, Bloating, Nausea. absent: Diarrhea , Dysphagia, Early Satiety, Excessive Flatus, Hematemesis, Hematochezia, Melena , Vomiting - Genitourinary Genitourinary: absent: Change in Urinary Stream, Difficulty Urinating - Musculoskeletal Musculoskeletal: absent: Abnormal Gait, Atrophy - Neurological Neurological: absent: Disequilibrium, Dizziness, Numbness, Headaches, Syncope, Tingling, Vertigo Past Patient History - Infectious Disease Hx of Infectious Diseases: None - Past Medical History & Family History Past Medical History?: Yes - Past Social History Smoking Status: Never Smoked - CARDIAC Hx Cardiac Disorders: No Hx Hypertension: Yes - PULMONARY Hx Respiratory Disorders: No - NEUROLOGICAL Hx Neurological Disorder: No - HEENT Hx HEENT Problems: No - RENAL Hx Chronic Kidney Disease: No - ENDOCRINE/METABOLIC Hx Endocrine Disorders: No Hx Diabetes Mellitus Type 2: Yes - HEMATOLOGICAL/ONCOLOGICAL Hx Blood Disorders: No - INTEGUMENTARY Hx Dermatological Problems: No - MUSCULOSKELETAL/RHEUMATOLOGICAL Hx Arthritis: Yes - GASTROINTESTINAL Hx Gastrointestinal Disorders: Yes Hx Diverticulitis: Yes - GENITOURINARY/GYNECOLOGICAL Hx Genitourinary Disorders: No - PSYCHIATRIC Hx Psychophysiologic Disorder: No Hx Depression: No Hx Emotional Abuse: No Hx Physical Abuse: No Hx Substance Use: No - SURGICAL HISTORY Hx Hysterectomy: Yes (PARTIAL) - ANESTHESIA Hx Anesthesia: No Meds Allergies/Adverse Reactions: Allergies Allergy/AdvReac Type Severity Reaction Status Date / Time EGG Allergy ANAPHYLAXIS Verified 11/08/17 17:21 Physical Exam - Constitutional Appears: Well, Non-toxic, No Acute Distress - Head Exam Head Exam: ATRAUMATIC, NORMAL INSPECTION, NORMOCEPHALIC - Eye Exam Eye Exam: EOMI, Normal appearance - ENT Exam ENT Exam: Mucous Membranes Moist, Normal Exam - Respiratory Exam Respiratory Exam: Clear to Auscultation Bilateral, NORMAL BREATHING PATTERN - Cardiovascular Exam Cardiovascular Exam: REGULAR RHYTHM, +S1, +S2 - GI/Abdominal Exam GI & Abdominal Exam: Normal Bowel Sounds, Soft, Tenderness. absent: Distended, Firm, Guarding, Rebound Additional comments: LLQ tenderness - Extremities Exam Extremities exam: Positive for: normal inspection. Negative for: pedal edema, tenderness - Back Exam Back exam: NORMAL INSPECTION - Neurological Exam Neurological exam: Alert, CN II-XII Intact, Oriented x3 - Skin Skin Exam: Normal Color, Warm Results - Vital Signs Recent Vital Signs: Last Vital Signs Temp 100.2 F H 02/06/18 16:45 Pulse 110 H 02/06/18 16:45 Resp 20 02/06/18 16:45 BP 131/90 02/06/18 16:45 Pulse Ox 96 02/06/18 16:45 - Labs Result Diagrams: 02/06/18 17:30 02/06/18 17:30 Assessment & Plan - Assessment and Plan (Free Text) Assessment: 57 year old female with past medical history of HTN, DM2, diverticulosis, hx of diverticulitis who presents with LLQ abdominal pain for [address] shows diverticulitis. Plan: Diverticulitis - Abd/Pelvis CT:There is sigmoid diverticulosis with infiltration of fat noted, the findings are suspicious for diverticulitis. No abscess formation. There is sigmoid colonic wall thickening noted. No significant change compared to prior exam. - Cipro/Flagyl - GI consulted, Sb, mariam recs - NPO - Pain medication - IV fluids HTN-chronic - Lisinopril - continue to monitor DM2 - ISS-med - ACHS DVT ppx: SCDS GI ppx: Protonix <Socorro Mayers - Last Filed: 02/07/18 05:38> Results - Vital Signs Recent Vital Signs: Last Vital Signs Temp 98.2 F 02/06/18 23:15 Pulse 80 02/06/18 23:15 Resp 20 02/06/18 23:15 BP 112/76 02/06/18 23:15 Pulse Ox 99 02/06/18 23:05 - Labs Result Diagrams: 02/06/18 17:30 02/06/18 17:30 Attending/Attestation - Attestation I have personally seen and examined this patient.: Yes I have fully participated in the care of the patient.: Yes I have reviewed all pertinent clinical information: Yes
[2018-02-06] MEDS ORDERED: Morphine 2 mg/ml ISec IVP PRN (23:21)
[2018-02-06] MEDS ORDERED: DiphenhydrAMINE 50 mg/ml Inj IVP STA (23:36)
[2018-02-06] MEDS: Sodium Chloride 0.9% 1,000 ML IV SCH (23:43)
[2018-02-07 00:53] VITALS: RESP 20; BMI 35.6
[2018-02-07] MEDS: metroNIDAZOLE IV 500 mg/100 ml 500 MG/100 ML BAG IVPB SCH ×3 (05:23→21:38)
[2018-02-07 06:49] LABS: BASO # 0.01 K/mm3 (0.0-2.0); BASO % 0.1 % (0.0-3.0); EOS # 0.2 (0.0-0.7); EOS % 2.2 % (1.5-5.0); GRAN # 6.15 (1.4-6.5); GRAN % 73.7 % (50.0-68.0); HEMOGLOBIN 10.4 g/dL (12.0-16.0); LYMPH # 1.4 (1.2-3.4); LYMPH % 16.4 % (22.0-35.0); MEAN CELL VOLUME 80.5 fl (80.0-105.0); MEAN CORPUSCULAR HEMOGLOBIN 25.7 pg (25.0-35.0); MEAN CORPUSCULAR HGB CONC 31.9 g/dl (31.0-37.0); MEAN PLATELET VOLUME 9.6 fl (7.0-11.0); MONO # 0.6 (0.1-0.6); MONO % 7.6 % (1.0-6.0); RBC 4.05 10^6/uL (3.5-6.1); RED CELL DISTRIBUTION WIDTH 14.4 % (11.5-14.5); WHITE BLOOD COUNT 8.3 10^3/ul (4.5-11.0)
[2018-02-07 07:13] LABS: ALB/GLOB RATIO 1.2 (1.1-1.8); ALBUMIN 3.6 g/dL (3.0-4.8); ALT/SGPT 33 U/L (7-56); AST/SGOT 18 U/L (14-36); BLOOD UREA NITROGEN 8 mg/dL (7-21); CALCIUM 8.3 mg/dL (8.4-10.5); GFR AFRICAN-AMERICAN > 60; GFR NON-AFRICAN AMERICAN > 60
[2018-02-07] MEDS: Piperacillin/Tazobact 3.375 gm 100 ML IVPB SCH ×4 (08:12→23:06)
[2018-02-07] MEDS: Insulin Lispro (humaLOG) MEDIUM Coverage SC SCH ×5 (08:12→22:23)
[2018-02-07] MEDS: Ergocalciferol 50,000 Intl Units Cap PO SCH (08:12)
--- NOTE | 2018-02-07 08:31 | CP.PCM.CON ---
<Keely Mares - Last Filed: 02/07/18 09:13> History of Present Illness - History of Present Illness History of Present Illness: GI Fellow PGY5 Consult Note This is a 57 year old female with a past medical history of HTN, DM2, and diverticulitis who was admitted for evaluation and treatment of abdominal pain which began on Wednesday with no specific provoking event. The pain originates in the left lower quadrant and radiates to the left upper quadrant. It is characterized as being being sharp in nature and is rated a 8/10. Pt also reports constipation with BM q3days at home with no bowel regimen. She reports severe constipation prior to pain and took 1/2 bottle of Miralax with no relief so decided to come to the ER. It is important to note that the patient was admitted to [facility] in August of 2017 and October 2017 and treated for sigmoid diverticulitis. At that time the patient was discharged home on PO antibiotics and informed to follow up in an outpatient setting. Currently abdominal pain is a little better, no BM, no rectal bleeding, no unintentional weight loss. Pt is scheduled for outpt colonoscopy at [facility] on Mar 09. ROS: A 12pt ROS was negative except as above PMH: As stated above PSH: Partial hysterectomy due to uterine bleeding SH: Denies Tobacco, ETOH, IVD FH: Neg for colon cancer Past Patient History - Infectious Disease Hx of Infectious Diseases: None - Past Medical History & Family History Past Medical History?: Yes - Past Social History Smoking Status: Never Smoked - CARDIAC Hx Cardiac Disorders: No Hx Hypertension: Yes - PULMONARY Hx Respiratory Disorders: No - NEUROLOGICAL Hx Neurological Disorder: No - HEENT Hx HEENT Problems: No - RENAL Hx Chronic Kidney Disease: No - ENDOCRINE/METABOLIC Hx Endocrine Disorders: No Hx Diabetes Mellitus Type 2: Yes - HEMATOLOGICAL/ONCOLOGICAL Hx Blood Disorders: No - INTEGUMENTARY Hx Dermatological Problems: No - MUSCULOSKELETAL/RHEUMATOLOGICAL Hx Arthritis: Yes - GASTROINTESTINAL Hx Diverticulitis: Yes - GENITOURINARY/GYNECOLOGICAL Hx Genitourinary Disorders: No - PSYCHIATRIC Hx Psychophysiologic Disorder: No Hx Depression: No Hx Emotional Abuse: No Hx Physical Abuse: No - SURGICAL HISTORY Hx Hysterectomy: Yes (PARTIAL) - ANESTHESIA Hx Anesthesia: No Meds Allergies/Adverse Reactions: Allergies Allergy/AdvReac Type Severity Reaction Status Date / Time EGG Allergy ANAPHYLAXIS Verified 11/08/17 17:21 - Medications Medications: Current Medications Ergocalciferol (Drisdol 50,000 Intl Units Cap) 1 cap PO QD7 [facility] Last Admin: 02/07/18 08:12 Dose: 1 cap Metronidazole (Flagyl) 500 mg in 100 mls @ 100 mls/hr IVPB Q8 YOBANY PRN Reason: Protocol Last Admin: 02/07/18 05:23 Dose: 100 mls/hr Sodium Chloride (Sodium Chloride 0.9%) 1,000 mls @ 100 mls/hr IV .Q10H [facility] Last Admin: 02/06/18 23:43 Dose: 100 mls/hr Piperacillin Sod/Tazobactam Sod (Zosyn 3.375 In Ns 100ml) 100 mls @ 200 mls/hr IVPB Q6 YOBANY PRN Reason: Protocol Stop: 02/14/18 07:01 Last Admin: 02/07/18 08:12 Dose: 200 mls/hr Insulin Human Lispro (Humalog Med) 0 units SC ACHS YOBANY PRN Reason: Protocol Last Admin: 02/07/18 08:24 Dose: Not Given Lisinopril (Zestril) 2.5 mg PO DAILY [facility] Morphine Sulfate (Morphine) 2 mg IVP Q4H PRN PRN Reason: Pain, severe (8-10) Multivitamins (Thera Tab) 1 tab PO DAILY [facility] Pantoprazole Sodium (Protonix Inj) 40 mg IVP DAILY [facility] Physical Exam - Constitutional Appears: Non-toxic, No Acute Distress - Head Exam Head Exam: ATRAUMATIC, NORMAL INSPECTION, NORMOCEPHALIC - Eye Exam Eye Exam: EOMI, Normal appearance Pupil Exam: PERRL - ENT Exam ENT Exam: Mucous Membranes Moist - Neck Exam Neck exam: Positive for: Full Rom, Normal Inspection - Respiratory Exam Respiratory Exam: Clear to Auscultation Bilateral, NORMAL BREATHING PATTERN - Cardiovascular Exam Cardiovascular Exam: REGULAR RHYTHM, RRR, +S1, +S2 - GI/Abdominal Exam GI & Abdominal Exam: Normal Bowel Sounds, Soft, Tenderness. absent: Distended, Firm, Guarding, Organomegaly - Rectal Exam Rectal Exam: Deferred - Extremities Exam Extremities exam: Positive for: full ROM, normal inspection - Back Exam Back exam: NORMAL INSPECTION - Neurological Exam Neurological exam: Alert, Oriented x3 - Psychiatric Exam Psychiatric exam: Normal Affect, Normal Mood - Skin Skin Exam: Dry, Intact, Normal Color, Warm Results - Vital Signs Recent Vital Signs: Last Vital Signs Temp 98.1 F 02/07/18 06:00 Pulse 78 02/07/18 06:00 Resp 20 02/07/18 06:00 BP 117/68 02/07/18 06:00 Pulse Ox 99 02/07/18 06:00 - Labs Result Diagrams: 02/07/18 06:15 02/07/18 06:15 Labs: Laboratory Results - last 24 hr 02/07/18 02/07/18 06:15 06:15 WBC 8.3 D RBC 4.05 Hgb 10.4 L Hct 32.6 L MCV 80.5 MCH 25.7 MCHC 31.9 RDW 14.4 Plt Count 200 MPV 9.6 Gran % 73.7 H Lymph % (Auto) 16.4 L [place] % (Auto) 7.6 H Eos % (Auto) 2.2 Baso % (Auto) 0.1 Gran # 6.15 Lymph # (Auto) 1.4 [place] # (Auto) 0.6 Eos # (Auto) 0.2 Baso # (Auto) 0.01 Sodium 142 Potassium 4.3 Chloride 103 Carbon Dioxide 30 Anion Gap 13 BUN 8 Creatinine 0.6 L Est GFR ( Amer) > 60 Est GFR (Non-Af Amer) > 60 Random Glucose 203 H Calcium 8.3 L Total Bilirubin 0.9 AST 18 ALT 33 Alkaline Phosphatase 75 Total Protein 6.6 Albumin 3.6 Globulin 3.1 Albumin/Globulin Ratio 1.2 Assessment & Plan - Assessment and Plan (Free Text) Assessment: Patient is a 57 year old female with a past medical history of HTN, DM2, and diverticulitis who was admitted for evaluation and treatment of abdominal pain. Abdomen/pelvis CT revealed thickening and fat stranding of sigmoid colon not changed from prior images. 1. Abdominal pain 2/2 Diverticulitis 2. Recurrent diverticulitis 3. Hx of HTN 4. Hx of DM 5. Constipation Plan: -Continue supportive care with pain control and anti-emetics - Advance to full liquid diet as tolerated - c/w IVF & IV zosyn - serial abdominal exams - Colace bid, will start miralax tomorrow if no BM - Pt for outpatient colonoscopy Mar 09 at [facility] - patient education provided- encourage high fiber diet and increased water intake - c/w blood pressure and blood glucose control - Will continue to follow closely <Juan Mojica - Last Filed: 02/07/18 09:26> Meds - Medications Medications: Current Medications Ergocalciferol (Drisdol 50,000 Intl Units Cap) 1 cap PO QD7 [facility] Last Admin: 02/07/18 08:12 Dose: 1 cap Metronidazole (Flagyl) 500 mg in 100 mls @ 100 mls/hr IVPB Q8 YOBANY PRN Reason: Protocol Last Admin: 02/07/18 05:23 Dose: 100 mls/hr Sodium Chloride (Sodium Chloride 0.9%) 1,000 mls @ 100 mls/hr IV .Q10H YOBANY Last Admin: 02/06/18 23:43 Dose: 100 mls/hr Piperacillin Sod/Tazobactam Sod (Zosyn 3.375 In Ns 100ml) 100 mls @ 200 mls/hr IVPB Q6 YOBANY PRN Reason: Protocol Stop: 02/14/18 07:01 Last Admin: 02/07/18 08:12 Dose: 200 mls/hr Insulin Human Lispro (Humalog Med) 0 units SC ACHS YOBANY PRN Reason: Protocol Last Admin: 02/07/18 08:24 Dose: Not Given Lisinopril (Zestril) 2.5 mg PO DAILY [facility] Morphine Sulfate (Morphine) 2 mg IVP Q4H PRN PRN Reason: Pain, severe (8-10) Multivitamins (Thera Tab) 1 tab PO DAILY [facility] Pantoprazole Sodium (Protonix Inj) 40 mg IVP DAILY [facility] Results - Vital Signs Recent Vital Signs: Last Vital Signs Temp 98.1 F 02/07/18 06:00 Pulse 78 02/07/18 06:00 Resp 20 02/07/18 06:00 BP 117/68 02/07/18 06:00 Pulse Ox 99 02/07/18 06:00 - Labs Result Diagrams: 02/07/18 06:15 02/07/18 06:15 Labs: Laboratory Results - last 24 hr 02/07/18 02/07/18 06:15 06:15 WBC 8.3 D RBC 4.05 Hgb 10.4 L Hct 32.6 L MCV 80.5 MCH 25.7 MCHC 31.9 RDW 14.4 Plt Count 200 MPV 9.6 Gran % 73.7 H Lymph % (Auto) 16.4 L [place] % (Auto) 7.6 H Eos % (Auto) 2.2 Baso % (Auto) 0.1 Gran # 6.15 Lymph # (Auto) 1.4 [place] # (Auto) 0.6 Eos # (Auto) 0.2 Baso # (Auto) 0.01 Sodium 142 Potassium 4.3 Chloride 103 Carbon Dioxide 30 Anion Gap 13 BUN 8 Creatinine 0.6 L Est GFR ( Amer) > 60 Est GFR (Non-Af Amer) > 60 Random Glucose 203 H Calcium 8.3 L Total Bilirubin 0.9 AST 18 ALT 33 Alkaline Phosphatase 75 Total Protein 6.6 Albumin 3.6 Globulin 3.1 Albumin/Globulin Ratio 1.2 Attending/Attestation - Attestation I have personally seen and examined this patient.: Yes I have fully participated in the care of the patient.: Yes I have reviewed all pertinent clinical information: Yes Notes (Text): 02/07/18 09:22 I have seen and examined patient with GI fellow. Agree with above documentation with the following additions. In brief, this is a 57 year old female with history of recurrent diverticulitis, obesity, chronic constipation, HTN, DM, who presents to hospital with complaint of abdominal pain which began 3 days ago. She describes sharp LLQ pain, 5/10 intensity, that became progressively worse over the weekend associated with nausea. She denies vomiting, fever/chills, rectal bleeding, weight loss. She endorses chronic constipation, last bowel movement 3 days ago and often passes hard stool with straining during defecation. No prior endoscopic evaluation. Review of vitals from today are normal. HTN/DM Obesity Chronic constipation Abdominal pain - recurrent sigmoid diverticulitis - Full liquid diet as tolerated - Continue with antibiotic therapy - Maintain bowel regiment to prevent constipation - Patient has outpatient colonoscopy scheduled in February, given recurrent disease with 3rd episode this year it is important to exclude for underlying malignancy. Following this, she should have surgical consultation for consideration of elective partial colectomy. - Will continue to monitor patient clinical course
--- NOTE | 2018-02-07 08:54 | CP.PCM.PN ---
<Adilson Dupree - Last Filed: 02/07/18 15:49> Subjective - Date & Time of Evaluation Date of Evaluation: 02/07/18 Time of Evaluation: 07:10 - Subjective Subjective: Patient seen and examined at bedside. She is in no acute distress. Pt still have LLQ pain but decreased from 9/10 last night to 5/10 today, radiates to the back. No acute events overnight, no bowel movement. Patient denies bleeding per rectum, fever, chills, chest pain, palpitation, SOB. Objective - Vital Signs/Intake and Output Vital Signs (last 24 hours): Temp Pulse Resp BP Pulse Ox 98.1 F 78 20 117/68 99 02/07/18 06:00 02/07/18 06:00 02/07/18 06:00 02/07/18 06:00 02/07/18 06:00 Intake and Output: 02/07/18 02/07/18 06:59 18:59 Intake Total 700 Balance 700 - Medications Medications: Current Medications Ergocalciferol (Drisdol 50,000 Intl Units Cap) 1 cap PO QD7 [facility] Last Admin: 02/07/18 08:12 Dose: 1 cap Metronidazole (Flagyl) 500 mg in 100 mls @ 100 mls/hr IVPB Q8 [facility] PRN Reason: Protocol Last Admin: 02/07/18 05:23 Dose: 100 mls/hr Sodium Chloride (Sodium Chloride 0.9%) 1,000 mls @ 100 mls/hr IV .Q10H [facility] Last Admin: 02/06/18 23:43 Dose: 100 mls/hr Piperacillin Sod/Tazobactam Sod (Zosyn 3.375 In Ns 100ml) 100 mls @ 200 mls/hr IVPB Q6 [facility] PRN Reason: Protocol Stop: 02/14/18 07:01 Last Admin: 02/07/18 08:12 Dose: 200 mls/hr Insulin Human Lispro (Humalog Med) 0 units SC ACHS [facility] PRN Reason: Protocol Last Admin: 02/07/18 08:24 Dose: Not Given Lisinopril (Zestril) 2.5 mg PO DAILY [facility] Morphine Sulfate (Morphine) 2 mg IVP Q4H PRN PRN Reason: Pain, severe (8-10) Multivitamins (Thera Tab) 1 tab PO DAILY [facility] Pantoprazole Sodium (Protonix Inj) 40 mg IVP DAILY [facility] - Labs Labs: 02/07/18 06:15 02/07/18 06:15 PT 12.0 SECONDS (9.4-12.5) 02/06/18 17:30 INR 1.05 02/06/18 17:30 APTT 27.4 Seconds (25.1-36.5) 02/06/18 17:30 - Constitutional Appears: Well, No Acute Distress - Head Exam Head Exam: ATRAUMATIC, NORMAL INSPECTION, NORMOCEPHALIC - Eye Exam Eye Exam: EOMI, Normal appearance, PERRL Pupil Exam: NORMAL ACCOMODATION, PERRL - ENT Exam ENT Exam: Mucous Membranes Moist, Normal Exam - Neck Exam Neck Exam: Full ROM, Normal Inspection. absent: Lymphadenopathy - Respiratory Exam Respiratory Exam: Clear to Ausculation Bilateral, NORMAL BREATHING PATTERN - Cardiovascular Exam Cardiovascular Exam: REGULAR RHYTHM, +S1, +S2. absent: Murmur - GI/Abdominal Exam GI & Abdominal Exam: Soft, Tenderness, Normal Bowel Sounds. absent: Guarding, Rigid, Mass, Organomegaly Additional comments: Tender to palpate on LLQ area. no rebound, no guarding, no rebound tenderness. - Extremities Exam Extremities Exam: Full ROM, Normal Capillary Refill, Normal Inspection. absent : Joint Swelling, Pedal Edema - Back Exam Back Exam: NORMAL INSPECTION. absent: CVA tenderness (L), CVA tenderness (R) - Neurological Exam Neurological Exam: Alert, Awake, CN II-XII Intact, Normal Gait, Oriented x3 - Psychiatric Exam Psychiatric exam: Normal Affect, Normal Mood - Skin Skin Exam: Dry, Intact, Normal Color, Warm Assessment and Plan - Assessment and Plan (Free Text) Assessment: 57 year old female with PMH of HTN, DM2, and diverticulitis. Admitted for diverticulitis. WBC 12.1 (02/06) 8.3 (02/07) , CT abdomen shows sigmoid diverticulitis with colonic thickening, no abscess formation. Plan: Acute diverticulitis: -Prior 2 hospital admissions for the same symptoms -WBC 12.1 (02/06) 8.3 (02/07) -CT abdomen shows sigmoid diverticulitis with colonic thickening with infiltration of fat , no abscess formation -continue Flagyl, Zosyn -continue Colase, Maalox -IVF: NS 1L @100ml/hr -Pain management Toradol 30 mg prn. Morphine 2 mg prn for severe pain -As per GI consult: exclude possibility of malignancy in the setting of recurrent episodes. Surgical consultation recommended for elective partial colectomy. -Full liquid diet HTN -BP monitor -Lisinopril 2.5 mg DM2 -ISS-med -Accucheck DVT ppx: SCDS GI ppx: Protonix 40 Full liquid diet <[email or web address] R - Last Filed: 02/07/18 21:34> Objective - Vital Signs/Intake and Output Vital Signs (last 24 hours): Temp Pulse Resp BP Pulse Ox 98.1 F 85 20 137/86 97 02/07/18 06:00 02/07/18 14:00 02/07/18 14:00 02/07/18 14:00 02/07/18 14:00 Intake and Output: 02/07/18 02/08/18 18:59 06:59 Intake Total 800 Balance 800 - Medications Medications: Current Medications Docusate Sodium (Colace) 100 mg PO BID [facility] Last Admin: 02/07/18 17:40 Dose: 100 mg Ergocalciferol (Drisdol 50,000 Intl Units Cap) 1 cap PO QD7 [facility] Last Admin: 02/07/18 08:12 Dose: 1 cap Metronidazole (Flagyl) 500 mg in 100 mls @ 100 mls/hr IVPB Q8 [facility] PRN Reason: Protocol Last Admin: 02/07/18 13:02 Dose: 100 mls/hr Sodium Chloride (Sodium Chloride 0.9%) 1,000 mls @ 100 mls/hr IV .Q10H [facility] Last Admin: 02/07/18 12:08 Dose: 100 mls/hr Piperacillin Sod/Tazobactam Sod (Zosyn 3.375 In Ns 100ml) 100 mls @ 200 mls/hr IVPB Q6 [facility] PRN Reason: Protocol Stop: 02/14/18 07:01 Last Admin: 02/07/18 17:40 Dose: 200 mls/hr Insulin Human Lispro (Humalog Med) 0 units SC ACHS [facility] PRN Reason: Protocol Last Admin: 02/07/18 17:40 Dose: 3 unit Lisinopril (Zestril) 2.5 mg PO DAILY [facility] Last Admin: 02/07/18 09:41 Dose: 2.5 mg Morphine Sulfate (Morphine) 2 mg IVP Q4H PRN PRN Reason: Pain, severe (8-10) Multivitamins (Thera Tab) 1 tab PO DAILY [facility] Last Admin: 02/07/18 09:42 Dose: 1 tab Pantoprazole Sodium (Protonix Inj) 40 mg IVP DAILY [facility] Last Admin: 02/07/18 09:41 Dose: 40 mg - Labs Labs: 02/07/18 06:15 02/07/18 06:15 PT 12.0 SECONDS (9.4-12.5) 02/06/18 17:30 INR 1.05 02/06/18 17:30 APTT 27.4 Seconds (25.1-36.5) 02/06/18 17:30 Attending/Attestation - Attestation I have personally seen and examined this patient.: Yes I have fully participated in the care of the patient.: Yes I have reviewed all pertinent clinical information, including history, physical exam and plan: Yes Notes (Text): Patient seen and examined by me at 10:45AM with resident. Case including HPI, physical exam, and assessment and plan discussed with resident. Agree with above with following additions/corrections. Patient is a 57 year old female with past medical history significant for DM2, diverticulosis, and diverticulitis that presented to the emergency room with lower abdominal pain. Patient states that she is feeling much better today. States abdominal pain yesterday was 10/10. Today, she feels the pain is a "soreness." Pain in in left lower quadrant and constant in nature. No radiation of the pain. Patient does not have any associated nausea or vomiting. Patient is tolerating liquid diet. She denies any bowel movement. No chest pain or shortness of breath. No fevers or chills. No headaches or dizziness. No dysuria. Physical exam: Gen: Awake and alert sitting up in bed in no acute distress HEENT: Normocephalic, atraumatic. Extraocular muscles intact, pupils equal reactive. No scleral icterus. Oropharynx is pink and moist. No pharyngeal erythema or exudate appreciated. Neck is supple. Cardiovascular: Normal rhythm. Normal S1, S2. No murmurs, rubs, or gallops appreciated Pulmonary: Normal respiratory effort. No rhonchi, rales or wheezing appreciated. Gastrointestinal: Soft, positive left lower quadrant tenderness with deep palpation, nondistended, positive bowel sounds all 4 quadrants, no guarding. Musculoskeletal: Normal range of motion all extremities, no calf tenderness. Central nervous system: AAO x 3. Dermatologic: Skin warm and dry Assessment and plan: Patient is a 57 year old female with past medical history significant for DM2, diverticulosis, and diverticulitis that presented to the emergency room with lower abdominal pain. 1. Acute diverticulitis. CT abd/pelvis per radiologist showed acute sigmoid diverticulitis, less severe findings compared to prior. Patient was started on Cipro and Flagyl. ID consulted, recommendations appreciated. Antibiotics changed to Zosyn and Flagyl. GI consulted, recommendations appreciated. Patient will need outpatient colonoscopy. Diet advanced. 2. Left lower quadrant abdominal pain. Secondary to #1. Improved. Continue antibiotics 3. Leukocytosis. Secondary to #1. Resolved. Continue to monitor. 4. DM2. Continue insulin sliding scale. Continue to monitor accuchecks 5. Hypertension. Continue Lisinopril Case was discussed in detail with the patient regarding current diagnosis and treatment plan.
--- NOTE | 2018-02-07 09:15 | CT ---
Date of service: 02/06/2018 PROCEDURE: CT Abdomen and Pelvis with contrast HISTORY: Acute onset abdominal pain. COMPARISON: 11/08/2017. Summary of findings on the comparison examination: Diverticulitis sigmoid colon. TECHNIQUE: Contrast dose: 100 cc Omnipaque 350. Radiation dose: Total exam DLP = 897.53 mGy-cm. This CT exam was performed using one or more of the following dose reduction techniques: Automated exposure control, adjustment of the mA and/or kV according to patient size, and/or use of iterative reconstruction technique. FINDINGS: LOWER THORAX: Unremarkable. LIVER: Hepatic steatosis. No focal masses. No intrahepatic bile duct dilatation or perihepatic ascites. GALLBLADDER AND BILE DUCTS: Unremarkable. PANCREAS: Unremarkable. No gross lesion or ductal dilatation. SPLEEN: Unremarkable. ADRENALS: Unremarkable. No mass. KIDNEYS AND URETERS: Unremarkable. No hydronephrosis. No solid mass. VASCULATURE: Unremarkable. No aortic aneurysm. BOWEL: Acute sigmoid diverticulitis. Anatomically similar area of involvement to that seen previously. The findings are less severe compared to the prior study. No adjacent drainable collection. No free or loculated air. APPENDIX: Normal appendix. PERITONEUM: Unremarkable. No free fluid. No free air. LYMPH NODES: Unremarkable. No enlarged lymph nodes. BLADDER: Unremarkable. REPRODUCTIVE: Unremarkable. BONES: No acute fracture. OTHER FINDINGS: None. IMPRESSION: Acute sigmoid diverticulitis. Spell similar anatomic distribution to that seen previously. Less severe findings compared to the prior examination. Concordant results (preliminary interpretation) provided by [employer]. Procedure Completed: 20:34. Preliminary ([facility]Rad) Report: Dictated and Authenticated: 21:07. Final Interpretation: 09:13. February 07, 2018.
[2018-02-07] MEDS: Multivitamin Therapeutic Tab PO SCH (09:42)
[2018-02-07] MEDS: Sodium Chloride 0.9% 1,000 ML IV SCH (12:08)
--- NOTE | 2018-02-07 19:39 | CP.PCM.CON ---
History of Present Illness - History of Present Illness History of Present Illness: 57 year old female with PMH of diverticulitis (attacks 8 years ago, 2017), diverticulosis, HTN, DM, obesity with BMI 36, S/P partial hysterectomy came in to [facility] [facility] because of sharp left lower quadrant pain since 3 days ago. She has had episodes of diverticulitis, the last one in October 2017 and she was supposed to have had colonoscopy which she has not done yet. She denies fever or chills, has some nausea but no vomiting, no diarrhea, no headache or dizziness, no chest pain, no SOB, no dysuria, no hematuria. CT scan of the abdomen and pelvis is showing acute sigmoid diverticulitis. Infectious diseases consult is requested to further evaluate and manage. Review of Systems - Review of Systems All systems: reviewed and no additional remarkable complaints except (as per HPI ) Past Patient History - Infectious Disease Hx of Infectious Diseases: None - Past Medical History & Family History Past Medical History?: Yes - Past Social History Smoking Status: Never Smoked - CARDIAC Hx Cardiac Disorders: No Hx Hypertension: Yes - PULMONARY Hx Respiratory Disorders: No - NEUROLOGICAL Hx Neurological Disorder: No - HEENT Hx HEENT Problems: No - RENAL Hx Chronic Kidney Disease: No - ENDOCRINE/METABOLIC Hx Endocrine Disorders: No Hx Diabetes Mellitus Type 2: Yes - HEMATOLOGICAL/ONCOLOGICAL Hx Blood Disorders: No - INTEGUMENTARY Hx Dermatological Problems: No - MUSCULOSKELETAL/RHEUMATOLOGICAL Hx Arthritis: Yes - GASTROINTESTINAL Hx Diverticulitis: Yes - GENITOURINARY/GYNECOLOGICAL Hx Genitourinary Disorders: No - PSYCHIATRIC Hx Psychophysiologic Disorder: No Hx Depression: No Hx Emotional Abuse: No Hx Physical Abuse: No - SURGICAL HISTORY Hx Hysterectomy: Yes (PARTIAL) - ANESTHESIA Hx Anesthesia: No Meds Allergies/Adverse Reactions: Allergies Allergy/AdvReac Type Severity Reaction Status Date / Time EGG Allergy ANAPHYLAXIS Verified 11/08/17 17:21 - Medications Medications: Current Medications Ergocalciferol (Drisdol 50,000 Intl Units Cap) 1 cap PO QD7 [facility] Metronidazole (Flagyl) 500 mg in 100 mls @ 100 mls/hr IVPB Q8 [facility] PRN Reason: Protocol Last Admin: 02/07/18 05:23 Dose: 100 mls/hr Sodium Chloride (Sodium Chloride 0.9%) 1,000 mls @ 100 mls/hr IV .Q10H [facility] Last Admin: 02/06/18 23:43 Dose: 100 mls/hr Piperacillin Sod/Tazobactam Sod (Zosyn 3.375 In Ns 100ml) 100 mls @ 200 mls/hr IVPB Q6 [facility] PRN Reason: Protocol Stop: 02/14/18 07:01 Insulin Human Lispro (Humalog Med) 0 units SC ACHS [facility] PRN Reason: Protocol Lisinopril (Zestril) 2.5 mg PO DAILY [facility] Morphine Sulfate (Morphine) 2 mg IVP Q4H PRN PRN Reason: Pain, severe (8-10) Multivitamins (Thera Tab) 1 tab PO DAILY [facility] Pantoprazole Sodium (Protonix Inj) 40 mg IVP DAILY [facility] Physical Exam - Constitutional Appears: Non-toxic, Chronically Ill - Head Exam Head Exam: NORMAL INSPECTION - Respiratory Exam Respiratory Exam: Decreased Breath Sounds - Cardiovascular Exam Cardiovascular Exam: +S1, +S2 - GI/Abdominal Exam GI & Abdominal Exam: Soft, Tenderness (LLQ). absent: Distended, Firm, Guarding , Rebound, Rigid Results - Vital Signs Recent Vital Signs: Last Vital Signs Temp 98.2 F 02/06/18 23:15 Pulse 80 02/06/18 23:15 Resp 20 02/06/18 23:15 BP 112/76 02/06/18 23:15 Pulse Ox 99 02/06/18 23:05 - Labs Result Diagrams: 02/07/18 06:15 02/07/18 06:15 Assessment & Plan - Assessment and Plan (Free Text) Plan: Assessment Acute diverticulitis of the sigmoid colon, in a patient with history of diverticulitis (attacks 8 years ago, 2017) and diverticulosis HTN DM obesity with BMI 37 S/P partial hysterectomy Plan Started the patient on Zosyn and will monitor clinical response follow up GI recommendations - will need colonoscopy eventually
[2018-02-08] MEDS: Sodium Chloride 0.9% 1,000 ML IV SCH
[2018-02-08] MEDS: metroNIDAZOLE IV 500 mg/100 ml 500 MG/100 ML BAG IVPB SCH (05:33)
[2018-02-08] MEDS: Piperacillin/Tazobact 3.375 gm 100 ML IVPB SCH (06:25)
[2018-02-08] MEDS: Ergocalciferol 50,000 Intl Units Cap PO SCH (08:15)
[2018-02-08] MEDS: Insulin Lispro (humaLOG) MEDIUM Coverage SC SCH ×3 (08:15→17:08)
--- NOTE | 2018-02-08 08:40 | CP.PCM.CON ---
History of Present Illness - History of Present Illness History of Present Illness: General Surgery Consult Note for Radhika Reason for consult: diverticulitis 57 yo F with PMHx of HTN, DM, obesity, and diverticulitis admitted for evaluation and treatment of lower abdominal pain that began Wednesday evening. As per patient, there was no inciting event. It was characterized as "pinching" and localized primarily to LLQ with some radiation to the RLQ. Pt reported constipation with BM on admission, was given stool softener, and has since passed 2 BM within the last 24 hours. Endorses bloody streaks with wiping, no aashish blood in stool. Of note, the patient has been admitted to [facility] in 08/2017 and 10/2017 for sigmoid diverticulitis. At that time of admission, patient was discharged home on PO antibiotics and instructed to follow-up outpatient. She is scheduled for an outpatient colonoscopy at [facility] in February. This morning, patient reports her abdominal pain has improved. Had some nausea yesterday that has since improved but no vomiting or diarrhea, no headaches or dizziness, no fevers or chills, no dysuria or hematuria, no chest pain, no palpitations, no SOB. PMHx: HTN, DM, recurrent diverticulitis PSHx: partial hysterectomy d/t uterine bleeding Allergies: Eggs Home Medications: lisinopril, multivitamins, ergocalciferol Social Hx: Denies alcohol, tobacco, or drug use. , lives with . FHx: negative for colon cancer PMD: Dr. Douglass , [facility] Review of Systems - Review of Systems All systems: reviewed and no additional remarkable complaints except (as per HPI above) Past Patient History - Infectious Disease Hx of Infectious Diseases: None - Past Medical History & Family History Past Medical History?: Yes - Past Social History Smoking Status: Never Smoked - CARDIAC Hx Cardiac Disorders: No Hx Hypertension: Yes - PULMONARY Hx Respiratory Disorders: No - NEUROLOGICAL Hx Neurological Disorder: No - HEENT Hx HEENT Problems: No - RENAL Hx Chronic Kidney Disease: No - ENDOCRINE/METABOLIC Hx Endocrine Disorders: No Hx Diabetes Mellitus Type 2: Yes - HEMATOLOGICAL/ONCOLOGICAL Hx Blood Disorders: No - INTEGUMENTARY Hx Dermatological Problems: No - MUSCULOSKELETAL/RHEUMATOLOGICAL Hx Arthritis: Yes - GASTROINTESTINAL Hx Diverticulitis: Yes - GENITOURINARY/GYNECOLOGICAL Hx Genitourinary Disorders: No - PSYCHIATRIC Hx Psychophysiologic Disorder: No Hx Depression: No Hx Emotional Abuse: No Hx Physical Abuse: No - SURGICAL HISTORY Hx Hysterectomy: Yes (PARTIAL) - ANESTHESIA Hx Anesthesia: No Meds Home Medications: Home Medication List Medication Instructions Recorded Confirmed Type Amoxicillin/Clavulanate [Augmentin 1 tab PO BID 10 Days #20 tab 02/08/18 Rx 875 MG-125 MG Tab] Docusate [Colace] 100 mg PO BID #60 cap 02/08/18 Rx Lactobacillus Acidophilus 1 each PO BID #20 capsule 02/08/18 Rx [Acidophilus Lactobacilli] Allergies/Adverse Reactions: Allergies Allergy/AdvReac Type Severity Reaction Status Date / Time EGG Allergy ANAPHYLAXIS Verified 11/08/17 17:21 - Medications Medications: Current Medications Docusate Sodium (Colace) 100 mg PO BID [facility] Last Admin: 02/07/18 17:40 Dose: 100 mg Ergocalciferol (Drisdol 50,000 Intl Units Cap) 1 cap PO QD7 [facility] Last Admin: 02/08/18 08:15 Dose: 1 cap Metronidazole (Flagyl) 500 mg in 100 mls @ 100 mls/hr IVPB Q8 [facility] PRN Reason: Protocol Last Admin: 02/08/18 05:33 Dose: 100 mls/hr Sodium Chloride (Sodium Chloride 0.9%) 1,000 mls @ 100 mls/hr IV .Q10H [facility] Last Admin: 02/08/18 00:00 Dose: 100 mls/hr Piperacillin Sod/Tazobactam Sod (Zosyn 3.375 In Ns 100ml) 100 mls @ 200 mls/hr IVPB Q6 [facility] PRN Reason: Protocol Stop: 02/14/18 07:01 Last Admin: 02/08/18 06:25 Dose: 200 mls/hr Insulin Human Lispro (Humalog Med) 0 units SC ACHS [facility] PRN Reason: Protocol Last Admin: 02/08/18 08:15 Dose: 1 unit Lisinopril (Zestril) 2.5 mg PO DAILY [facility] Last Admin: 02/07/18 09:41 Dose: 2.5 mg Morphine Sulfate (Morphine) 2 mg IVP Q4H PRN PRN Reason: Pain, severe (8-10) Multivitamins (Thera Tab) 1 tab PO DAILY [facility] Last Admin: 02/07/18 09:42 Dose: 1 tab Pantoprazole Sodium (Protonix Inj) 40 mg IVP DAILY [facility] Last Admin: 02/07/18 09:41 Dose: 40 mg Physical Exam - Constitutional Appears: Non-toxic, No Acute Distress - Head Exam Head Exam: ATRAUMATIC, NORMAL INSPECTION, NORMOCEPHALIC - Eye Exam Eye Exam: Normal appearance - ENT Exam ENT Exam: Normal Exam - Neck Exam Neck exam: Positive for: Normal Inspection - Respiratory Exam Respiratory Exam: Clear to Auscultation Bilateral, NORMAL BREATHING PATTERN - Cardiovascular Exam Cardiovascular Exam: RRR, +S1, +S2 - GI/Abdominal Exam GI & Abdominal Exam: Soft, Tenderness (Mild localized TTP in LLQ). absent: Distended, Firm, Guarding, Mass, Rebound, Rigid - Extremities Exam Extremities exam: Positive for: normal inspection - Neurological Exam Neurological exam: Alert, Oriented x3 - Psychiatric Exam Psychiatric exam: Normal Affect, Normal Mood - Skin Skin Exam: Dry, Intact, Normal Color, Warm Results - Vital Signs Recent Vital Signs: Last Vital Signs Temp 98.6 F 02/08/18 06:00 Pulse 77 02/08/18 06:00 Resp 20 02/08/18 06:00 BP 109/66 02/08/18 06:00 Pulse Ox 99 02/08/18 06:00 - Labs Result Diagrams: 02/07/18 06:15 02/07/18 06:15 Labs: Laboratory Results - last 24 hr 02/07/18 02/07/18 02/07/18 06:46 11:28 16:00 POC Glucose (mg/dL) 197 H 272 H 226 H 02/07/18 02/08/18 22:06 06:44 POC Glucose (mg/dL) 241 H 182 H Assessment & Plan - Assessment and Plan (Free Text) Assessment: 57 yo F with PMHx of HTN, DM, and diverticulitis who was admitted for evaluation and treatment of abdominal pain, likely recurrent diverticulitis. Abdomen/pelvis CT demonstrates thickening and fat stranding of sigmoid colon, no abscess formation; no significant changes from prior image. Plan: -cleared from surgical perspective with outpatient f/u -continue with meds, as per primary team -patient education emphasized: high fiber diet, increased water intake -f/u GI recommendations for colonoscopy; currently scheduled for outpatient colonoscopy 02/2018 at [facility] -further recs as per Dr. Jett Gannon, PGY-1
--- NOTE | 2018-02-08 08:55 | CP.PCM.PN ---
<VishnuKeely - Last Filed: 02/08/18 09:03> Subjective - Date & Time of Evaluation Date of Evaluation: 02/08/18 Time of Evaluation: 08:00 - Subjective Subjective: GI [place] PGY5 Progress Note Pt seen and evaluated at bedside, doing well with abdominal pain better. Pt with +BM2 overnight. Tolerating full liquid diet. ROS: A 12pt ROS was negative except as above Objective - Vital Signs/Intake and Output Vital Signs (last 24 hours): Temp Pulse Resp BP Pulse Ox 98.6 F 77 20 109/66 99 02/08/18 06:00 02/08/18 06:00 02/08/18 06:00 02/08/18 06:00 02/08/18 06:00 Intake and Output: 02/08/18 02/08/18 06:59 18:59 Intake Total 2760 Balance 2760 - Medications Medications: Current Medications Docusate Sodium (Colace) 100 mg PO BID [facility] Last Admin: 02/07/18 17:40 Dose: 100 mg Ergocalciferol (Drisdol 50,000 Intl Units Cap) 1 cap PO QD7 [facility] Last Admin: 02/08/18 08:15 Dose: 1 cap Metronidazole (Flagyl) 500 mg in 100 mls @ 100 mls/hr IVPB Q8 [facility] PRN Reason: Protocol Last Admin: 02/08/18 05:33 Dose: 100 mls/hr Sodium Chloride (Sodium Chloride 0.9%) 1,000 mls @ 100 mls/hr IV .Q10H [facility] Last Admin: 02/08/18 00:00 Dose: 100 mls/hr Piperacillin Sod/Tazobactam Sod (Zosyn 3.375 In Ns 100ml) 100 mls @ 200 mls/hr IVPB Q6 [facility] PRN Reason: Protocol Stop: 02/14/18 07:01 Last Admin: 02/08/18 06:25 Dose: 200 mls/hr Insulin Human Lispro (Humalog Med) 0 units SC ACHS [facility] PRN Reason: Protocol Last Admin: 02/08/18 08:15 Dose: 1 unit Lisinopril (Zestril) 2.5 mg PO DAILY [facility] Last Admin: 02/07/18 09:41 Dose: 2.5 mg Morphine Sulfate (Morphine) 2 mg IVP Q4H PRN PRN Reason: Pain, severe (8-10) Multivitamins (Thera Tab) 1 tab PO DAILY [facility] Last Admin: 02/07/18 09:42 Dose: 1 tab Pantoprazole Sodium (Protonix Inj) 40 mg IVP DAILY [facility] Last Admin: 02/07/18 09:41 Dose: 40 mg Polyethylene Glycol (Miralax) 17 gm PO DAILY [facility] - Labs Labs: 02/07/18 06:15 02/07/18 06:15 PT 12.0 SECONDS (9.4-12.5) 02/06/18 17:30 INR 1.05 02/06/18 17:30 APTT 27.4 Seconds (25.1-36.5) 02/06/18 17:30 - Constitutional Appears: Non-toxic, No Acute Distress - Head Exam Head Exam: ATRAUMATIC, NORMAL INSPECTION, NORMOCEPHALIC - Eye Exam Eye Exam: EOMI, Normal appearance, PERRL Pupil Exam: PERRL - ENT Exam ENT Exam: Mucous Membranes Moist, Normal Exam - Neck Exam Neck Exam: Full ROM, Normal Inspection - Respiratory Exam Respiratory Exam: Clear to Ausculation Bilateral, NORMAL BREATHING PATTERN - Cardiovascular Exam Cardiovascular Exam: REGULAR RHYTHM, +S1, +S2 - GI/Abdominal Exam GI & Abdominal Exam: Soft, Normal Bowel Sounds. absent: Distended, Guarding, Rigid, Tenderness, Organomegaly - Rectal Exam Rectal Exam: Deferred - Extremities Exam Extremities Exam: Full ROM, Normal Inspection - Back Exam Back Exam: NORMAL INSPECTION - Neurological Exam Neurological Exam: Alert, Awake, Oriented x3 - Psychiatric Exam Psychiatric exam: Normal Affect, Normal Mood - Skin Skin Exam: Dry, Intact, Normal Color, Warm Assessment and Plan - Assessment and Plan (Free Text) Assessment: Patient is a 57 year old female with a past medical history of HTN, DM2, and diverticulitis who was admitted for evaluation and treatment of abdominal pain. Abdomen/pelvis CT revealed thickening and fat stranding of sigmoid colon not changed from prior images. 1. Acute Diverticulitis 2. Recurrent diverticulitis 3. Hx of HTN 4. Hx of DM 5. Constipation Plan: -Continue supportive care with pain control and anti-emetics - Advance to soft diet as tolerated - Can continue abx and change to po prior to discharge - Colace bid, miralax daily - Pt for outpatient colonoscopy Mar 09 at [facility] - Encourage high fiber diet and increased water intake - Pt okay for discharge home today with outpt GI followup <Juan Mojica - Last Filed: 02/08/18 09:14> Objective - Vital Signs/Intake and Output Vital Signs (last 24 hours): Temp Pulse Resp BP Pulse Ox 98.6 F 77 20 109/66 99 02/08/18 06:00 02/08/18 06:00 02/08/18 06:00 02/08/18 06:00 02/08/18 06:00 Intake and Output: 02/08/18 02/08/18 06:59 18:59 Intake Total 2760 Balance 2760 - Medications Medications: Current Medications Docusate Sodium (Colace) 100 mg PO BID [facility] Last Admin: 02/07/18 17:40 Dose: 100 mg Ergocalciferol (Drisdol 50,000 Intl Units Cap) 1 cap PO QD7 [facility] Last Admin: 02/08/18 08:15 Dose: 1 cap Metronidazole (Flagyl) 500 mg in 100 mls @ 100 mls/hr IVPB Q8 [facility] PRN Reason: Protocol Last Admin: 02/08/18 05:33 Dose: 100 mls/hr Sodium Chloride (Sodium Chloride 0.9%) 1,000 mls @ 100 mls/hr IV .Q10H [facility] Last Admin: 02/08/18 00:00 Dose: 100 mls/hr Piperacillin Sod/Tazobactam Sod (Zosyn 3.375 In Ns 100ml) 100 mls @ 200 mls/hr IVPB Q6 [facility] PRN Reason: Protocol Stop: 02/14/18 07:01 Last Admin: 02/08/18 06:25 Dose: 200 mls/hr Insulin Human Lispro (Humalog Med) 0 units SC ACHS [facility] PRN Reason: Protocol Last Admin: 02/08/18 08:15 Dose: 1 unit Lisinopril (Zestril) 2.5 mg PO DAILY [facility] Last Admin: 02/07/18 09:41 Dose: 2.5 mg Morphine Sulfate (Morphine) 2 mg IVP Q4H PRN PRN Reason: Pain, severe (8-10) Multivitamins (Thera Tab) 1 tab PO DAILY [facility] Last Admin: 02/07/18 09:42 Dose: 1 tab Pantoprazole Sodium (Protonix Inj) 40 mg IVP DAILY [facility] Last Admin: 02/07/18 09:41 Dose: 40 mg Polyethylene Glycol (Miralax) 17 gm PO DAILY [facility] - Labs Labs: 02/07/18 06:15 02/07/18 06:15 PT 12.0 SECONDS (9.4-12.5) 02/06/18 17:30 INR 1.05 02/06/18 17:30 APTT 27.4 Seconds (25.1-36.5) 02/06/18 17:30 Attending/Attestation - Attestation I have fully participated in the care of the patient.: Yes I have reviewed all pertinent clinical information, including history, physical exam and plan: Yes Notes (Text): 02/08/18 09:13 Agree with above documentation, patient to follow up next month for colonoscopy evaluation given recurrent diverticulitis. Following examination, will also likely benefit from surgical consideration of partial colectomy. No further planned GI interventions, will sign off case. Please reconsult as necessary, thank you.
[2018-02-08] MEDS ORDERED: POLYETHYLENE GLYCOL 3350 17 GM/Dose PACKET PO SCH (10:00)
[2018-02-08] MEDS: Multivitamin Therapeutic Tab PO SCH (10:04)
[2018-02-08 14:08] VITALS: BP 157/97; PULSE 77; TEMP 98.8; O2SAT 97
--- NOTE | 2018-02-08 14:14 | CP.PCM.DIS ---
<Adilson Dupree - Last Filed: 02/08/18 16:29> Provider - Provider Date of Admission: 02/06/18 22:20 Attending physician: Heidy Doran DO Primary care physician: Dagoberto Aguila MD Consults: Edd Heart M.D Time Spent in preparation of Discharge (in minutes): 45 Hospital Course - Lab Results Lab Results: Micro Results 02/07/18 08:30 Blood-Venous Blood Culture - Preliminary NO GROWTH AFTER 24 HOURS 02/07/18 09:15 Blood-Venous Blood Culture - Preliminary NO GROWTH AFTER 24 HOURS Most Recent Lab Values WBC 8.3 10^3/ul (4.5-11.0) D 02/07/18 06:15 RBC 4.05 10^6/uL (3.5-6.1) 02/07/18 06:15 Hgb 10.4 g/dL (12.0-16.0) L 02/07/18 06:15 Hct 32.6 % (36.0-48.0) L 02/07/18 06:15 MCV 80.5 fl (80.0-105.0) 02/07/18 06:15 MCH 25.7 pg (25.0-35.0) 02/07/18 06:15 MCHC 31.9 g/dl (31.0-37.0) 02/07/18 06:15 RDW 14.4 % (11.5-14.5) 02/07/18 06:15 Plt Count 200 10^3/uL (120.0-450.0) 02/07/18 06:15 MPV 9.6 fl (7.0-11.0) 02/07/18 06:15 Gran % 73.7 % (50.0-68.0) H 02/07/18 06:15 Lymph % (Auto) 16.4 % (22.0-35.0) L 02/07/18 06:15 [place] % (Auto) 7.6 % (1.0-6.0) H 02/07/18 06:15 Eos % (Auto) 2.2 % (1.5-5.0) 02/07/18 06:15 Baso % (Auto) 0.1 % (0.0-3.0) 02/07/18 06:15 Gran # 6.15 (1.4-6.5) 02/07/18 06:15 Lymph # (Auto) 1.4 (1.2-3.4) 02/07/18 06:15 [place] # (Auto) 0.6 (0.1-0.6) 02/07/18 06:15 Eos # (Auto) 0.2 (0.0-0.7) 02/07/18 06:15 Baso # (Auto) 0.01 K/mm3 (0.0-2.0) 02/07/18 06:15 PT 12.0 SECONDS (9.4-12.5) 02/06/18 17:30 INR 1.05 02/06/18 17:30 APTT 27.4 Seconds (25.1-36.5) 02/06/18 17:30 Sodium 142 mmol/L (132-148) 02/07/18 06:15 Potassium 4.3 mmol/L (3.6-5.0) 02/07/18 06:15 Chloride 103 mmol/L (98-107) 02/07/18 06:15 Carbon Dioxide 30 mmol/L (21-33) 02/07/18 06:15 Anion Gap 13 (10-20) 02/07/18 06:15 BUN 8 mg/dL (7-21) 02/07/18 06:15 Creatinine 0.6 mg/dl (0.7-1.2) L 02/07/18 06:15 Est GFR ( Amer) > 60 02/07/18 06:15 Est GFR (Non-Af Amer) > 60 02/07/18 06:15 POC Glucose (mg/dL) 226 mg/dL (65-110) H 02/08/18 11:26 Random Glucose 203 mg/dL (70-110) H 02/07/18 06:15 Calcium 8.3 mg/dL (8.4-10.5) L 02/07/18 06:15 Magnesium 2.0 mg/dL (1.7-2.2) 02/06/18 17:30 Total Bilirubin 0.9 mg/dL (0.2-1.3) 02/07/18 06:15 AST 18 U/L (14-36) 02/07/18 06:15 ALT 33 U/L (7-56) 02/07/18 06:15 Alkaline Phosphatase 75 U/L (38-126) 02/07/18 06:15 Total Protein 6.6 g/dL (5.8-8.3) 02/07/18 06:15 Albumin 3.6 g/dL (3.0-4.8) 02/07/18 06:15 Globulin 3.1 gm/dL 02/07/18 06:15 Albumin/Globulin Ratio 1.2 (1.1-1.8) 02/07/18 06:15 Lipase 85 U/L (23-300) 02/06/18 17:30 Urine Color Light yellow (YELLOW) 02/06/18 17:30 Urine Appearance Clear (CLEAR) 02/06/18 17:30 Urine pH 7.5 (4.7-8.0) 02/06/18 17:30 Ur Specific [place] 1.010 (1.005-1.035) 02/06/18 17:30 Urine Protein Negative mg/dL (<30 mg/dL) 02/06/18 17:30 Urine Glucose (UA) Negative mg/dL (NEGATIVE) 02/06/18 17:30 Urine Ketones Negative mg/dL (NEGATIVE) 02/06/18 17:30 Urine Blood Negative (NEGATIVE) 02/06/18 17:30 Urine Nitrate Negative (NEGATIVE) 02/06/18 17:30 Urine Bilirubin Negative (NEGATIVE) 02/06/18 17:30 Urine Urobilinogen 0.2 E.U./dL (<1 E.U./dL) 02/06/18 17:30 Ur Leukocyte Esterase Negative [place]/uL (NEGATIVE) 02/06/18 17:30 - Hospital Course Hospital Course: Upon Admission 57 year old female with past medical history of HTN, DM2, diverticulosis, hx of diverticulitis presented with lower abdominal pain which began 2 days prior to admission. Patient reported the pain was sharp, initially 10/10 constant starting in her LLQ with some radiation to left back. Patient reported she had some nausea but no vomiting. Patient reported having 3 episodes of the same symptoms during the past few months and was scheduled to have a colonoscopy and EGD in February. On ROS patient denied acute complaints of fever, chills, diarrhea, bloody stool, constipation, weakness or any other complaints at this time. Hospital Course In the Emergency Room, patient had a WBC of 12.[address] abdomen/pelvis showed sigmoid diverticulosis with infiltration of fat noted with findings suspicious for diverticulitis; no abscess formation. There was also sigmoid colonic wall thickening noted with no significant change compared to prior exam. Patient was started on IV Cipro/Flagyl and put NPO and on IV fluids. Patient was admitted to med/surg for diverticulitis. GI Dr. Basurto was consulted who recommended continuing antibiotic therapy and stated that it is important to exclude for underlying malignancy. ID was consulted who switched antibiotic therapy to Zosyn /Flagyl. As per GI recommendations, surgery was also consulted for consideration of elective partial colectomy. During hospital course patient symptomatically improved and diet was advanced as tolerated. Surgery Dr. Frausto was consulted who recommended continuing antibiotics, a high fiber diet with increased water intake, and outpatient colonoscopy with GI. On day of discharge, patient's symptoms had resolved and she tolerated regular diet and had a regular bowel movement. As per ID patient's antibiotics were changed to Augmentin and patient was discharged home. Upon Discharge Patient to follow up with [facility] Remover Mar 09, 2018 at [facility] for outpatient colonoscopy Patient to follow up with [facility] clinic with Dr. Miller on WednesdayFebruary 18 at 1:30PM Patient to follow upwith General surgery after colonoscopy on Mar 09 to discuss possible elective surgery Patient to take the following medications as prescribed: - Augmentin 875mg-125mg, Take 1 tab by mouth twice a day for 8 days - Lactobacillus Acidophilus Take 1 tab by mouth twice a day, complete all pills. - Colace 100mg Take 1 tab by mouth twice a day as needed for constipation. Discharge planning was conducted with patient including outpatient follow up, medication reconciliation, and signs and symptoms to be aware of for return to emergency department. Patient was in understanding and able to recall instructions back to primary team. Patient was deemed to be medically optimized for discharge by consultants involved in her care as well as her primary medical team. For further details regarding hospital stay please refer to full chart. - Date & Time of H&P Date of H&P: 02/08/18 Time of H&P: 14:45 Discharge Exam - Head Exam Head Exam: ATRAUMATIC, NORMAL INSPECTION, NORMOCEPHALIC - Eye Exam Eye Exam: EOMI, Normal appearance Pupil Exam: NORMAL ACCOMODATION, PERRL - ENT Exam ENT Exam: Mucous Membranes Moist, Normal Exam - Respiratory Exam Respiratory Exam: Clear to PA & Lateral, NORMAL BREATHING PATTERN, UNREMARKABLE - Cardiovascular Exam Cardiovascular Exam: REGULAR RHYTHM, +S1, +S2 - GI/Abdominal Exam GI & Abdominal Exam: Normal Bowel Sounds, Unremarkable. absent: Bruit, Distended, Guarding, Organomegaly, Pulsatile Mass, Rebound - Neurological Exam Neurological exam: CN II-XII Intact, Normal Gait, Oriented x3, Reflexes Normal - Psychiatric Exam Psychiatric exam: Normal Affect, Normal Mood - Skin Skin Exam: Dry, Intact, Normal Color, Warm Discharge Plan - Discharge Medications Prescriptions: Amoxicillin/Clavulanate [Augmentin 875 MG-125 MG Tab] 1 tab PO BID 10 Days #20 tab Docusate [Colace] 100 mg PO BID #60 cap Lactobacillus Acidophilus [Acidophilus Lactobacilli] 1 each PO BID #20 capsule - Follow Up Plan Condition: STABLE Disposition: HOME/ ROUTINE Instructions: Diverticulitis (DC), Acute Abdomen (Belly Pain), Adult (DC), Urinary Tract Infection in Women (DC), Acute Abdominal Pain (DC), Acute Abdominal Pain (GEN), Dysuria (GEN) Additional Instructions: Follow up with Dent Remover Mar 09, 2018 at [facility] for outpatient colonoscopy Follow up with [facility] clinic with Dr. Miller on WednesdayFebruary 18 at 1:30PM Follow up with General surgery after colonoscopy on Mar 09 to discuss possible elective surgery Take medications as prescribed to you, new medications include - Augmentin 875mg-125mg, Take 1 tab by mouth twice a day for 8 days - Lactobacillus Acidophilus Take 1 tab by mouth twice a day, complete all pills. - Colace 100mg Take 1 tab by mouth twice a day as needed for constipation. Return to emergency department if symptoms return Referrals: Joshua Frausto MD [Staff Provider] - Dagoberto Aguila MD [Primary Care Provider] - <Heidy Doran - Last Filed: 02/09/18 17:56> Provider - Provider Date of Admission: 02/06/18 22:20 Attending physician: Heidy Doran DO Primary care physician: Dagoberto Aguila MD Hospital Course - Lab Results Lab Results: Micro Results 02/07/18 08:30 Blood-Venous Blood Culture - Preliminary NO GROWTH AFTER 48 HOURS 02/07/18 09:15 Blood-Venous Blood Culture - Preliminary NO GROWTH AFTER 48 HOURS Most Recent Lab Values WBC 8.3 10^3/ul (4.5-11.0) D 02/07/18 06:15 RBC 4.05 10^6/uL (3.5-6.1) 02/07/18 06:15 Hgb 10.4 g/dL (12.0-16.0) L 02/07/18 06:15 Hct 32.6 % (36.0-48.0) L 02/07/18 06:15 MCV 80.5 fl (80.0-105.0) 02/07/18 06:15 MCH 25.7 pg (25.0-35.0) 02/07/18 06:15 MCHC 31.9 g/dl (31.0-37.0) 02/07/18 06:15 RDW 14.4 % (11.5-14.5) 02/07/18 06:15 Plt Count 200 10^3/uL (120.0-450.0) 02/07/18 06:15 MPV 9.6 fl (7.0-11.0) 02/07/18 06:15 Gran % 73.7 % (50.0-68.0) H 02/07/18 06:15 Lymph % (Auto) 16.4 % (22.0-35.0) L 02/07/18 06:15 [place] % (Auto) 7.6 % (1.0-6.0) H 02/07/18 06:15 Eos % (Auto) 2.2 % (1.5-5.0) 02/07/18 06:15 Baso % (Auto) 0.1 % (0.0-3.0) 02/07/18 06:15 Gran # 6.15 (1.4-6.5) 02/07/18 06:15 Lymph # (Auto) 1.4 (1.2-3.4) 02/07/18 06:15 [place] # (Auto) 0.6 (0.1-0.6) 02/07/18 06:15 Eos # (Auto) 0.2 (0.0-0.7) 08/13/18 06:15 Baso # (Auto) 0.01 K/mm3 (0.0-2.0) 02/07/18 06:15 PT 12.0 SECONDS (9.4-12.5) 02/06/18 17:30 INR 1.05 02/06/18 17:30 APTT 27.4 Seconds (25.1-36.5) 02/06/18 17:30 Sodium 142 mmol/L (132-148) 02/07/18 06:15 Potassium 4.3 mmol/L (3.6-5.0) 02/07/18 06:15 Chloride 103 mmol/L (98-107) 02/07/18 06:15 Carbon Dioxide 30 mmol/L (21-33) 02/07/18 06:15 Anion Gap 13 (10-20) 02/07/18 06:15 BUN 8 mg/dL (7-21) 02/07/18 06:15 Creatinine 0.6 mg/dl (0.7-1.2) L 02/07/18 06:15 Est GFR ( Amer) > 60 02/07/18 06:15 Est GFR (Non-Af Amer) > 60 02/07/18 06:15 POC Glucose (mg/dL) 205 mg/dL (65-110) H 02/08/18 15:56 Random Glucose 203 mg/dL (70-110) H 02/07/18 06:15 Calcium 8.3 mg/dL (8.4-10.5) L 02/07/18 06:15 Magnesium 2.0 mg/dL (1.7-2.2) 02/06/18 17:30 Total Bilirubin 0.9 mg/dL (0.2-1.3) 02/07/18 06:15 AST 18 U/L (14-36) 02/07/18 06:15 ALT 33 U/L (7-56) 02/07/18 06:15 Alkaline Phosphatase 75 U/L (38-126) 02/07/18 06:15 Total Protein 6.6 g/dL (5.8-8.3) 02/07/18 06:15 Albumin 3.6 g/dL (3.0-4.8) 02/07/18 06:15 Globulin 3.1 gm/dL 02/07/18 06:15 Albumin/Globulin Ratio 1.2 (1.1-1.8) 02/07/18 06:15 Lipase 85 U/L (23-300) 02/06/18 17:30 Urine Color Light yellow (YELLOW) 02/06/18 17:30 Urine Appearance Clear (CLEAR) 02/06/18 17:30 Urine pH 7.5 (4.7-8.0) 02/06/18 17:30 Ur Specific [place] 1.010 (1.005-1.035) 02/06/18 17:30 Urine Protein Negative mg/dL (<30 mg/dL) 02/06/18 17:30 Urine Glucose (UA) Negative mg/dL (NEGATIVE) 02/06/18 17:30 Urine Ketones Negative mg/dL (NEGATIVE) 02/06/18 17:30 Urine Blood Negative (NEGATIVE) 02/06/18 17:30 Urine Nitrate Negative (NEGATIVE) 02/06/18 17:30 Urine Bilirubin Negative (NEGATIVE) 02/06/18 17:30 Urine Urobilinogen 0.2 E.U./dL (<1 E.U./dL) 02/06/18 17:30 Ur Leukocyte Esterase Negative [place]/uL (NEGATIVE) 02/06/18 17:30 Attending/Attestation - Attestation I have personally seen and examined this patient.: Yes I have fully participated in the care of the patient.: Yes I have reviewed all pertinent clinical information, including history, physical exam and plan: Yes Notes (Text): Patient seen and examined by me with resident at 1PM 02/08/18. Case including discharge plan discussed with resident. Agree with above with following additions/corrections. Patient is a 57 year old female with past medical history significant for DM2, diverticulosis, and diverticulitis that presented to the emergency room with lower abdominal pain. Please see H&P for full details. Patient was admitted with diverticulitis. CT abd/pelvis per radiologist showed acute sigmoid diverticulitis, less severe findings compared to prior. Patient was started on Cipro and Flagyl. GI was consulted. ID was consulted. She was switched to Zosyn and Flagyl. She was placed on IV fluids. Diet was advanced slowly. Left lower quadrant pain slowly resolved. Patient did have a normal bowel movement. Patient was tolerating diet well. There is no nausea or vomiting. She was also found out leukocytosis. Also resolved. Patient was maintained on insulin sliding scale for her history of diabetes. Patient was continued on lisinopril for her hypertension. Per security control assessor, patient to keep appointment for colonoscopy next month, patient may benefit from surgical resection. Patient was evaluated by surgery who recommended outpatient follow-up. All symptoms resolved upon discharge. She was cleared for discharge by all consultants. Patient was discharged home on oral antibiotics. On day of discharge, patient stated she was feeling well. Abdominal pain resolved. No nausea or vomiting. Tolerating diet well. No chest pain or shortness of breath. No fevers or chills. No headaches or dizziness. No diarrhea or constipation. Physical exam: Gen: Awake and alert sitting up in bed in no acute distress HEENT: Normocephalic, atraumatic. Extraocular muscles intact, pupils equal reactive. No scleral icterus. Oropharynx is pink and moist. No pharyngeal erythema or exudate appreciated. Neck is supple. Cardiovascular: Normal rhythm. Normal S1, S2. No murmurs, rubs, or gallops appreciated Pulmonary: Normal respiratory effort. No rhonchi, rales or wheezing appreciated. Gastrointestinal: Soft, nontender, nondistended, positive bowel sounds all 4 quadrants, no guarding. Musculoskeletal: Normal range of motion all extremities, no calf tenderness. No CVA tenderness. Central nervous system: AAO x 3. Dermatologic: Skin warm and dry Please see chart for full details. Follow up instructions. Follow up with Dent Remover Mar 09, 2018 at [facility] for outpatient colonoscopy. Follow up with [facility] clinic with Dr. Miller on WednesdayFebruary 18 at 1:30PM. Take medications as prescribed. All instructions explained to patient in detail. Patient both understands and agrees to all instructions. Time spent in discharging the patient including chart review, medication reconciliation, discussion with the patient, medical billing supervisor, consultants, and nursing staff was approximately 35 minutes.
--- NOTE | 2018-02-08 15:45 | CP.PCM.PN ---
Subjective - Date & Time of Evaluation Date of Evaluation: 02/08/18 Time of Evaluation: 10:10 - Subjective Subjective: No fevers, not in distress, afebrile, abdominal pain is better. No nausea. Objective - Vital Signs/Intake and Output Vital Signs (last 24 hours): Temp Pulse Resp BP Pulse Ox 98.1 F 85 20 137/86 97 02/07/18 06:00 02/07/18 14:00 02/07/18 14:00 02/07/18 14:00 02/07/18 14:00 Intake and Output: 02/07/18 02/08/18 18:59 06:59 Intake Total 800 Balance 800 - Medications Medications: Current Medications Docusate Sodium (Colace) 100 mg PO BID [facility] Last Admin: 02/07/18 17:40 Dose: 100 mg Ergocalciferol (Drisdol 50,000 Intl Units Cap) 1 cap PO QD7 [facility] Last Admin: 02/07/18 08:12 Dose: 1 cap Metronidazole (Flagyl) 500 mg in 100 mls @ 100 mls/hr IVPB Q8 [facility] PRN Reason: Protocol Last Admin: 02/07/18 13:02 Dose: 100 mls/hr Sodium Chloride (Sodium Chloride 0.9%) 1,000 mls @ 100 mls/hr IV .Q10H [facility] Last Admin: 02/07/18 12:08 Dose: 100 mls/hr Piperacillin Sod/Tazobactam Sod (Zosyn 3.375 In Ns 100ml) 100 mls @ 200 mls/hr IVPB Q6 [facility] PRN Reason: Protocol Stop: 02/14/18 07:01 Last Admin: 02/07/18 17:40 Dose: 200 mls/hr Insulin Human Lispro (Humalog Med) 0 units SC ACHS [facility] PRN Reason: Protocol Last Admin: 02/07/18 17:40 Dose: 3 unit Lisinopril (Zestril) 2.5 mg PO DAILY [facility] Last Admin: 02/07/18 09:41 Dose: 2.5 mg Morphine Sulfate (Morphine) 2 mg IVP Q4H PRN PRN Reason: Pain, severe (8-10) Multivitamins (Thera Tab) 1 tab PO DAILY [facility] Last Admin: 02/07/18 09:42 Dose: 1 tab Pantoprazole Sodium (Protonix Inj) 40 mg IVP DAILY [facility] Last Admin: 02/07/18 09:41 Dose: 40 mg - Labs Labs: 02/07/18 06:15 02/07/18 06:15 PT 12.0 SECONDS (9.4-12.5) 02/06/18 17:30 INR 1.05 02/06/18 17:30 APTT 27.4 Seconds (25.1-36.5) 02/06/18 17:30 - Constitutional Appears: Non-toxic, No Acute Distress - ENT Exam ENT Exam: Mucous Membranes Moist - Neck Exam Neck Exam: absent: Meningismus - Respiratory Exam Respiratory Exam: Decreased Breath Sounds - Cardiovascular Exam Cardiovascular Exam: +S1, +S2 - GI/Abdominal Exam GI & Abdominal Exam: Soft. absent: Tenderness Assessment and Plan - Assessment and Plan (Free Text) Plan: Assessment Acute diverticulitis of the sigmoid colon, in a patient with history of diverticulitis (attacks 8 years ago, 2017) and diverticulosis HTN DM obesity with BMI 37 S/P partial hysterectomy Plan can switch Zosyn and Augmentin to complete 7 days follow up GI recommendations - will need colonoscopy eventually
[2018-02-08] MEDS ORDERED: Amoxicillin-Clav 875-125 mg Tab PO SCH (18:00)
== END 2018-02-08 20:17 | disposition home or self-care (01) | DRG 392 ==
LOC: ED 16:30 → ERH 22:20 → 5RNO 23:16
PROVIDERS: ADMIT Internal Medicine; ATTEND Hospitalist
DX: K57.32 Diverticulitis of large intestine without perforation or abscess without bleeding (principal); K59.09 Other constipation; K52.9 Noninfective gastroenteritis and colitis, unspecified; K29.70 Gastritis, unspecified, without bleeding; I71.4 Abdominal aortic aneurysm, without rupture; I10 Essential (primary) hypertension; E11.9 Type 2 diabetes mellitus without complications; E66.9 Obesity, unspecified; N20.0 Calculus of kidney; Z68.37 Body mass index [BMI] 37.0-37.9, adult; Z79.4 Long term (current) use of insulin; Z90.710 Acquired absence of both cervix and uterus; M19.90 Unspecified osteoarthritis, unspecified site; Z87.892 Personal history of anaphylaxis; Z91.012 Allergy to eggs

== ENCOUNTER 2018-05-21 13:55 | Inpatient (IN) | payer MEDICAID, OTHER ==
[2018-05-21] MEDS ORDERED: Morphine 4 mg/ml ISec IVP STA ×2 (14:53→18:19)
[2018-05-21 15:13] LABS: BASO # 0.01 K/mm3 (0.0-2.0); BASO % 0.1 % (0.0-3.0); EOS # 0.1 (0.0-0.7); EOS % 0.9 % (1.5-5.0); GRAN # 7.91 (1.4-6.5); GRAN % 77.6 % (50.0-68.0); LYMPH # 1.7 (1.2-3.4); LYMPH % 16.2 % (22.0-35.0); MEAN CELL VOLUME 79.8 fl (80.0-105.0); MEAN CORPUSCULAR HEMOGLOBIN 25.8 pg (25.0-35.0); MEAN CORPUSCULAR HGB CONC 32.3 g/dl (31.0-37.0); MEAN PLATELET VOLUME 9.5 fl (7.0-11.0); MONO # 0.5 (0.1-0.6); MONO % 5.2 % (1.0-6.0); RBC 4.66 10^6/uL (3.5-6.1); RED CELL DISTRIBUTION WIDTH 14.7 % (11.5-14.5); WHITE BLOOD COUNT 10.2 10^3/uL (4.5-11.0)
[2018-05-21 15:23] LABS: ALB/GLOB RATIO 1.2 (1.1-1.8); ALBUMIN 4.5 g/dL (3.0-4.8); ALT/SGPT 32 U/L (7-56); AMYLASE 83 U/L (35-125); AST/SGOT 31 U/L (14-36); BLOOD UREA NITROGEN 10 mg/dL (7-21); CALCIUM 9.5 mg/dL (8.4-10.5); GFR NON-AFRICAN AMERICAN > 60; LIPASE 96 U/L (23-300)
[2018-05-21 15:25] LABS: INR 1.09; PARTIAL THROMBOPLASTIN TIME 29.1 Seconds (25.1-36.5); PROTHROMBIN TIME 12.5 SECONDS (9.4-12.5)
[2018-05-21 15:34] LABS: TROPONIN I < 0.01 ng/mL
--- NOTE | 2018-05-21 15:38 | ED PDOC ---
Arrival/HPI <AmyAl T - Last Filed: 05/21/18 18:03> - General Historian: Patient - History of Present Illness Narrative History of Present Illness (Text): 05/21/18 15:11 57yo female with pmhx of hypertension, Diabetes, diverticulitis who present with complaint of sharp constant left sided upper and lower abdomen pain with nausea since this morning. Reports multiple histories of these pain in the past. States is usually with her Diverticulitis. She reports normal BM today. Denies fever, chills, vomiting, diarrhea, constipation, melena, hematemesis, chest pain, SOB, tearing/ripping upper back pain, urinary symptoms, any other complaint. <Sonja Singleton - Last Filed: 05/21/18 19:29> - General Chief Complaint: Abdominal Pain Past Medical History - Provider Review Nursing Documentation Reviewed: Yes - Infectious Disease Hx of Infectious Diseases: None - Cardiac Hx Angina: No Hx Cardiac Arrhythmia: No Hx Circulatory Problems: No Hx Congestive Heart Failure: No Hx Heart Murmur: No Hx Heart Transplant: No Hx Hypertension: No Hx Internal Defibrillator: No Hx Mitral Valve Prolapse: No Hx Pacemaker: No Hx Peripheral Edema: No Hx Peripheral Vascular Disease: No - Pulmonary Hx Asthma: No Hx Bronchitis: No Hx Chronic Obstructive Pulmonary Disease (COPD): No Hx Emphysema: No Hx Pneumonia: No Hx Respiratory Aspiration: No Hx Respiratory Tract Infection: No Hx Sleep Apnea: No Hx Tuberculosis: No - Neurological Hx Alzheimer's Disease: No HX Cerebrovascular Accident: No Hx Dementia: No Hx Dizziness: No Hx Meningitis: No Hx Migraine: No Hx Parkinson's Disease: No Hx Seizures: No Hx Transient Ischemic Attacks (TIA): No - HEENT Hx HEENT Disorder: No - Renal Hx Renal Disorder: No - Endocrine/Metabolic Hx Endocrine Disorders: Yes - Hematological/Oncological Hx Blood Disorders: No - Integumentary Hx Dermatological Disorder: No - Musculoskeletal/Rheumatological Hx Musculoskeletal Disorders: Yes Other/Comment: VITAMIN D DEFICIENCY - Gastrointestinal Hx Gastrointestinal Disorders: Yes Hx Diverticulitis: Yes - Genitourinary/Gynecological Hx Genitourinary Disorders: No - Psychiatric Hx Psychophysiologic Disorder: No Hx Depression: No Hx Emotional Abuse: No Hx Physical Abuse: No Hx Substance Use: No - Surgical History Hx Cardiac Catheterization: No Hx Coronary Stent: No - Anesthesia Hx Anesthesia: Yes Hx Anesthesia Reactions: No Hx Malignant Hyperthermia: No - Suicidal Assessment Feels Threatened In Home Enviroment: No <Sonja Singleton A - Last Filed: 05/21/18 19:29> Family/Social History - Physician Review Nursing Documentation Reviewed: Yes Family/Social History: Unknown Family HX Smoking Status: Never Smoked Hx Alcohol Use: No Hx Substance Use: No <Sonja Singleton A - Last Filed: 05/21/18 19:29> Allergies/Home Meds <Al Reyes T - Last Filed: 05/21/18 18:03> <Sonja Singleton A - Last Filed: 05/21/18 19:29> Allergies/Adverse Reactions: Allergies EGG Allergy (Verified 04/06/18 22:56) ANAPHYLAXIS Home Medications: Home Meds Medication Instructions Recorded Confirmed RX: Ergocalciferol (Vitamin D2) 50,000 units PO QD7 08/31/17 05/21/18 [Vitamin D2] RX: Multivitamin [Multivitamins] 1 each PO DAILY 08/31/17 05/21/18 RX: metFORMIN [glucOPHAGE] 1,000 mg PO BID 03/08/18 05/21/18 RX: Aspirin [Adult Aspirin] 81 mg PO DAILY 04/08/18 05/21/18 RX: Hydrochlorothiazide [Microzide] 12.5 mg PO DAILY 04/08/18 05/21/18 RX: amLODIPine [Norvasc] 5 mg PO DAILY 04/08/18 05/21/18 Review of Systems - Physician Review All systems were reviewed & negative as marked: Yes - Review of Systems Constitutional: Normal Eyes: Normal ENT: Normal Respiratory: Normal Cardiovascular: Normal Gastrointestinal: Abdominal Pain, Nausea. absent: Constipation, Diarrhea, Vomiting, Hematochezia, Hematemesis Genitourinary Female: Normal Musculoskeletal: Normal Skin: Normal Neurological: Normal Endocrine: Normal Hemo/Lymphatic: Normal Psychiatric: Normal <Sonja Singleton A - Last Filed: 05/21/18 19:29> Physical Exam Vital Signs Temp Pulse Resp BP Pulse Ox 05/21/18 15:47 98.1 F 86 16 124/79 95 05/21/18 13:56 98.5 F 96 H 18 139/86 98 <Al Reyes - Last Filed: 05/21/18 18:03> Vital Signs Reviewed: Yes Vital Signs Temp Pulse Resp BP Pulse Ox 05/21/18 13:56 98.5 F 96 H 18 139/86 98 Temperature: Afebrile Blood Pressure: Normal Pulse: Regular Respiratory Rate: Normal Appearance: Positive for: Well-Appearing, Non-Toxic, Comfortable Pain Distress: None Mental Status: Positive for: Alert and Oriented X 3 - Systems Exam Head: Present: Atraumatic, Normocephalic Pupils: Present: PERRL Extroacular Muscles: Present: EOMI Conjunctiva: Present: Normal Mouth: Present: Moist Mucous Membranes Neck: Present: Normal Range of Motion Respiratory/Chest: Present: Clear to Auscultation, Good Air Exchange. No: Respiratory Distress, Accessory Muscle Use Cardiovascular: Present: Regular Rate and Rhythm, Normal S1, S2. No: Murmurs Abdomen: Present: Tenderness (Left upper and lower quadrant tenderness). No: Distention, Peritoneal Signs Back: Present: Normal Inspection Upper Extremity: Present: Normal Inspection. No: Cyanosis, Edema Lower Extremity: Present: Normal Inspection. No: Edema Neurological: Present: GCS=15, CN II-XII Intact, Speech Normal Skin: Present: Warm, Dry, Normal Color. No: Rashes Psychiatric: Present: Alert, Oriented x 3, Normal Insight, Normal Concentration <Diru,Happiness A - Last Filed: 05/21/18 19:29> Medical Decision Making - Lab Interpretations Lab Results: 05/21/18 15:03 05/21/18 15:03 Lab Results 05/21/18 15:03: Sodium 141, Potassium 4.5, Chloride 103, Carbon Dioxide 29, Anion Gap 13, BUN 10, Creatinine 0.6 L, Est GFR ( Amer) > 60, Est GFR (Non-Af Amer) > 60, Random Glucose 166 H, Calcium 9.5, Total Bilirubin 0.5, AST 31, ALT 32, Alkaline Phosphatase 83, Lactate Dehydrogenase 350, Total Creatine Kinase 245 H, CK-MB (CK-2) 0.5, CK-MB (CK-2) % Cancelled, Troponin I < 0.01, Total Protein 8.2, Albumin 4.5, Globulin 3.7, Albumin/Globulin Ratio 1.2, Amylase 83, Lipase 96 05/21/18 15:03: PT 12.5, INR 1.09, APTT 29.1 05/21/18 15:03: WBC 10.2, RBC 4.66, Hgb 12.0 D, Hct 37.2, MCV 79.8 L, MCH 25.8, MCHC 32.3, RDW 14.7 H, Plt Count 228, MPV 9.5, Gran % 77.6 H, Lymph % (Auto) 16.2 L, Riley % (Auto) 5.2, Eos % (Auto) 0.9 L, Baso % (Auto) 0.1, Gran # 7.91 H, Lymph # (Auto) 1.7, Riley # (Auto) 0.5, Eos # (Auto) 0.1, Baso # (Auto) 0.01 - RAD Interpretation Radiology Orders: 05/21/18 14:53 ABD & PELVIS IV CONTRAST ONLY [CT] Stat - Medication Orders Current Medication Orders: Discontinued Medications Famotidine (Pepcid) 20 mg IVP STAT STA Stop: 05/21/18 14:54 Last Admin: 05/21/18 15:13 Dose: 20 mg IVP Administration Document 05/21/18 15:13 BB (Rec: 05/21/18 15:14 BB [place] [id number]) Charges for Administration # of IVP Administrations 1 Morphine Sulfate (Morphine) 4 mg IVP STAT STA Stop: 05/21/18 14:54 Last Admin: 05/21/18 15:13 Dose: 4 mg MAR Pain Assessment Document 05/21/18 15:13 BB (Rec: 05/21/18 15:13 BB [place] [id number]) Pain Reassessment Is this a pain reassessment? No Sleep Is patient sleeping during reassessment? No Presence of Pain Presence of Pain Yes Pain Scale Used Protocol: PSCALES Pain Scale Used Numeric Location Pain Location Body Site Abdomen Description Description Constant Intensity of Pain at present 8 Pain Behavior Moaning Crying IVP Administration Document 05/21/18 15:13 BB (Rec: 05/21/18 15:13 BB [id number]) Charges for Administration # of IVP Administrations 1 Ondansetron HCl (Zofran Inj) 4 mg IVP STAT STA Stop: 05/21/18 14:54 Last Admin: 05/21/18 15:14 Dose: 4 mg IVP Administration Document 05/21/18 15:14 BB (Rec: 05/21/18 15:14 BB [id number]) Charges for Administration # of IVP Administrations 1 <AmyAl - Last Filed: 05/21/18 18:03> ED Course and Treatment: 05/21/18 18:44 PT present to ED for stated history. she was in moderate pain on arrival. Had Left upper and lower abdominal pain. She was hemodynamically stable. Labs EKG 1L NS, Zofran, Morphine, Pepcid. Abdominal/Pelvic CT to r/o diverticulitis CXR EKG NSR @ 86bpm Labs was unremarkable Abdominal/Pelvic CT IMPRESSION: Findings consistent with acute diverticulitis involving the sigmoid colon. CXR : NAD On re evaluation pt continue to complain of pain and more analgesic was admitted Pt will be admitted for acute Diverticulitis Result and plan was DW the pt and she agreed Case was DW Dr. Villarreal and he accepted pt for admission - RAD Interpretation Radiology Orders: 05/21/18 14:53 ABD & PELVIS IV CONTRAST ONLY [CT] Stat - Medication Orders Current Medication Orders: Discontinued Medications Famotidine (Pepcid) 20 mg IVP STAT STA Stop: 05/21/18 14:54 Morphine Sulfate (Morphine) 4 mg IVP STAT STA Stop: 05/21/18 14:54 Ondansetron HCl (Zofran Inj) 4 mg IVP STAT STA Stop: 05/21/18 14:54 <Sonja Singleton - Last Filed: 05/21/18 19:29> - Scribe Statement The provider has reviewed the documentation as recorded by the Scribe Saima Weems Provider Scribe Attestation: All medical record entries made by the Scribe were at my direction and personally dictated by me. I have reviewed the chart and agree that the record accurately reflects my personal performance of the history, physical exam, medical decision making, and the department course for this patient. I have also personally directed, reviewed, and agree with the discharge instructions and disposition. <Al Reyes - Last Filed: 05/21/18 18:03> Disposition/Present on Arrival <Al Reyes - Last Filed: 05/21/18 18:03> - Present on Arrival Any Indicators Present on Arrival: No History of DVT/PE: No History of Uncontrolled Diabetes: No Urinary Catheter: No History of Decub. Ulcer: No History Surgical Site Infection Following: None - Disposition Have Diagnosis and Disposition been Completed?: Yes Disposition Time: 18:05 Patient Plan: Admission <Sonja Singleton - Last Filed: 05/21/18 19:29> - Disposition Diagnosis: Diverticulitis Disposition: HOSPITALIZED Patient Problems: Current Active Problems Problem Status Onset Diverticulitis Acute Condition: FAIR
[2018-05-21 16:05] LABS: CK-MB 0.5 ng/mL (0.0-3.6)
[2018-05-21] MEDS ORDERED: Iohexol 350 MG/100 ML VIAL ONE (16:38)
[2018-05-21 17:42] LABS: PH,URINE 8.5 (4.7-8.0); URINE BILIRUBIN NEGATIVE (NEGATIVE); URINE BLOOD NEGATIVE (NEGATIVE); URINE GLUCOSE (UA) NEGATIVE (NEGATIVE); URINE LEUKOCYTE ESTERASE NEGATIVE Leu/uL (NEGATIVE); URINE PROTEIN NEGATIVE mg/dL (<30 mg/dL); URINE UROBILINOGEN 0.2 E.U./dL (<1 E.U./dL)
[2018-05-21 17:44] LABS: URINE APPEARANCE CLEAR (CLEAR); URINE COLOR YELLOW (YELLOW)
--- NOTE | 2018-05-21 17:58 | CT ---
Date of service: 05/21/2018 PROCEDURE: CT Abdomen and Pelvis with contrast HISTORY: LLQ pain COMPARISON: CT abdomen and pelvis with IV contrast performed 04/07/18 TECHNIQUE: Contrast dose: 100 mL Omnipaque 350 Radiation dose: Total exam DLP = 986.29 mGy-cm. This CT exam was performed using one or more of the following dose reduction techniques: Automated exposure control, adjustment of the mA and/or kV according to patient size, and/or use of iterative reconstruction technique. FINDINGS: LOWER THORAX: No visible consolidation, pleural effusion, or pneumothorax. Small hiatal hernia/distal esophageal wall thickening. LIVER: Unremarkable. GALLBLADDER AND BILE DUCTS: Unremarkable. PANCREAS: Unremarkable. SPLEEN: Unremarkable. ADRENALS: Unremarkable. KIDNEYS AND URETERS: The kidneys enhance symmetrically. No hydronephrosis or obstructing calculus identified. VASCULATURE: No aortic aneurysm. No atherosclerotic calcification or mural plaque present. BOWEL: Stomach is nondistended. Lack of oral contrast limits evaluation for bowel pathology. Bowel loops appear within normal limits of caliber without evidence of obstruction. Colonic wall thickening, marked associated inflammatory changes, and diverticula involving the sigmoid colon consistent with acute diverticulitis. APPENDIX: The appendix appears within normal limits of caliber. No secondary signs of acute appendicitis. PERITONEUM: No significant free fluid. No definite free air. LYMPH NODES: No bulky adenopathy identified. BLADDER: Unremarkable. REPRODUCTIVE: Uterus is absent consistent with hysterectomy. BONES: Degenerative changes. OTHER FINDINGS: None. IMPRESSION: Findings consistent with acute diverticulitis involving the sigmoid colon.
[2018-05-21] MEDS ORDERED: Piperacillin/Tazobact 3.375 gm 100 ML IVPB STA (18:16)
[2018-05-21] MEDS ORDERED: Vancomycin 1gm in NS 250ml 1 GM/250 ML BAG IVPB STA (18:16)
--- NOTE | 2018-05-21 18:28 | CP.PCM.HP ---
<Dru Quintero - Last Filed: 05/21/18 19:45> History of Present Illness - History of Present Illness History of Present Illness: Resident History & Physical for Hospitalist Service Patient is a 57 year old female with past medical history of HTN, DM2, recurrent diverticulitis presenting with chief complaint of abdominal pain that began this morning. Pain is located in her lower abdomen and is described as a constant sharp pain that radiates to her back. Patient states that she took Advil last night with no relief. She also admits to nausea, and had one episode of emesis after arrival to ED. She had one bowel movement this morning, which was normal with no blood. She states her symptoms are characteristic of her previous episodes of diverticulitis. She states this is her 5th visit to the ED for the same presentation. Patient's most recent EGD and colonscopy in February showed gastritis and diverticulosis. Denies fevers, chills, headache, dizziness, chest pain, shortness of breath, constipation, diarrhea, dysuria. PMH: HTN, DM2, recurrent diverticulitis PSH: partial hysterectomy 2001 SHx: denies alcohol, tobacco, recreational drug use Allergies: eggs Home meds: metformin, alprazalom, HCTZ, aspirin PMD: Dr. Miller Present on Admission - Present on Admission Any Indicators Present on Admission: No Review of Systems - Constitutional Constitutional: absent: Chills, Fever, Headache - EENT Eyes: absent: Change in Vision Ears: absent: Abnormal Hearing - Cardiovascular Cardiovascular: absent: Chest Pain, Diaphoresis, Dyspnea - Respiratory Respiratory: absent: Cough, Dyspnea, Hemoptysis - Gastrointestinal Gastrointestinal: Abdominal Pain, Nausea, Vomiting. absent: Change in Bowel Habits, Constipation, Diarrhea, Hematemesis, Hematochezia - Genitourinary Genitourinary: absent: Dysuria Past Patient History - Infectious Disease Hx of Infectious Diseases: None - Past Medical History & Family History Past Medical History?: Yes - Past Social History Smoking Status: Never Smoked - CARDIAC Hx Angina: No Hx Cardia Arrhythmia: No Hx Circulatory Problems: No Hx Congestive Heart Failure: No Hx Heart Murmur: No Hx Heart Transplant: No Hx Hypertension: No Hx Internal Defibrillator: No Hx Mitral Valve Prolapse: No Hx Pacemaker: No Hx Peripheral Edema: No Hx Peripheral Vascular Disease: No - PULMONARY Hx Asthma: No Hx Bronchitis: No Hx Chronic Obstructive Pulmonary Disease (COPD): No Hx Emphysema: No Hx Pneumonia: No Hx Respiratory Aspiration: No Hx Respiratory Tract Infection: No Hx Sleep Apnea: No Hx Tuberculosis: No - NEUROLOGICAL Hx Alzheimer's Disease: No HX Cerebrovascular Accident: No Hx Dementia: No Hx Dizziness: No Hx Meningitis: No Hx Migraine: No Hx Parkinson's Disease: No Hx Seizures: No Hx Transient Ischemic Attacks (TIA): No - HEENT Hx HEENT Problems: No - RENAL Hx Chronic Kidney Disease: No - ENDOCRINE/METABOLIC Hx Endocrine Disorders: Yes - HEMATOLOGICAL/ONCOLOGICAL Hx Blood Disorders: No - INTEGUMENTARY Hx Dermatological Problems: No - MUSCULOSKELETAL/RHEUMATOLOGICAL Hx Musculoskeletal Disorders: Yes Other/Comment: VITAMIN D DEFICIENCY - GASTROINTESTINAL Hx Gastrointestinal Disorders: Yes Hx Diverticulitis: Yes - GENITOURINARY/GYNECOLOGICAL Hx Genitourinary Disorders: No - PSYCHIATRIC Hx Psychophysiologic Disorder: No Hx Depression: No Hx Emotional Abuse: No Hx Physical Abuse: No Hx Substance Use: No - SURGICAL HISTORY Hx Cardiac Catheterization: No Hx Coronary Stent: No - ANESTHESIA Hx Anesthesia: Yes Hx Anesthesia Reactions: No Hx Malignant Hyperthermia: No Meds Allergies/Adverse Reactions: Allergies Allergy/AdvReac Type Severity Reaction Status Date / Time EGG Allergy ANAPHYLAXIS Verified 04/06/18 22:56 Physical Exam - Constitutional Appears: Non-toxic, No Acute Distress - Head Exam Head Exam: ATRAUMATIC, NORMOCEPHALIC - Eye Exam Eye Exam: EOMI, Normal appearance, PERRL - ENT Exam ENT Exam: Mucous Membranes Dry - Neck Exam Neck exam: Positive for: Normal Inspection. Negative for: Lymphadenopathy, Tenderness, Thyromegaly - Respiratory Exam Respiratory Exam: Clear to Auscultation Bilateral, NORMAL BREATHING PATTERN. absent: Accessory Muscle Use, Decreased Breath Sounds, Rales, Rhonchi, Wheezes, Respiratory Distress - Cardiovascular Exam Cardiovascular Exam: REGULAR RHYTHM, +S1, +S2 - GI/Abdominal Exam GI & Abdominal Exam: Guarding, Hypoactive Bowel Sounds, Rebound, Soft, Tenderness (LLQ). absent: Distended, Firm, Rigid - Extremities Exam Extremities exam: Positive for: full ROM, normal capillary refill, normal in spection, pedal pulses present. Negative for: calf tenderness, pedal edema - Neurological Exam Neurological exam: Alert, CN II-XII Intact, Oriented x3 - Psychiatric Exam Psychiatric exam: Normal Affect, Normal Mood - Skin Skin Exam: Dry, Intact, Normal Color, Warm Results - Vital Signs Recent Vital Signs: Last Vital Signs Temp 98.2 F 05/21/18 17:29 Pulse 86 05/21/18 17:29 Resp 18 05/21/18 17:29 BP 126/76 05/21/18 17:29 Pulse Ox 99 05/21/18 17:29 - Labs Result Diagrams: 05/21/18 15:03 05/21/18 15:03 Labs: Laboratory Results - last 24 hr 05/21/18 05/21/18 05/21/18 15:03 15:03 15:03 WBC 10.2 RBC 4.66 Hgb 12.0 D Hct 37.2 MCV 79.8 L MCH 25.8 MCHC 32.3 RDW 14.7 H Plt Count 228 MPV 9.5 Gran % 77.6 H Lymph % (Auto) 16.2 L [place] % (Auto) 5.2 Eos % (Auto) 0.9 L Baso % (Auto) 0.1 Gran # 7.91 H Lymph # (Auto) 1.7 [place] # (Auto) 0.5 Eos # (Auto) 0.1 Baso # (Auto) 0.01 PT 12.5 INR 1.09 APTT 29.1 Sodium 141 Potassium 4.5 Chloride 103 Carbon Dioxide 29 Anion Gap 13 BUN 10 Creatinine 0.6 L Est GFR ( Amer) > 60 Est GFR (Non-Af Amer) > 60 Random Glucose 166 H Calcium 9.5 Total Bilirubin 0.5 AST 31 ALT 32 Alkaline Phosphatase 83 Lactate Dehydrogenase 350 Total Creatine Kinase 245 H CK-MB (CK-2) 0.5 CK-MB (CK-2) % Cancelled Troponin I < 0.01 Total Protein 8.2 Albumin 4.5 Globulin 3.7 Albumin/Globulin Ratio 1.2 Amylase 83 Lipase 96 Urine Color Urine Appearance Urine pH Ur Specific [place] Urine Protein Urine Glucose (UA) Urine Ketones Urine Blood Urine Nitrate Urine Bilirubin Urine Urobilinogen Ur Leukocyte Esterase 05/21/18 17:22 WBC RBC Hgb Hct MCV MCH MCHC RDW Plt Count MPV Gran % Lymph % (Auto) [place] % (Auto) Eos % (Auto) Baso % (Auto) Gran # Lymph # (Auto) [place] # (Auto) Eos # (Auto) Baso # (Auto) PT INR APTT Sodium Potassium Chloride Carbon Dioxide Anion Gap BUN Creatinine Est GFR ( Amer) Est GFR (Non-Af Amer) Random Glucose Calcium Total Bilirubin AST ALT Alkaline Phosphatase Lactate Dehydrogenase Total Creatine Kinase CK-MB (CK-2) CK-MB (CK-2) % Troponin I Total Protein Albumin Globulin Albumin/Globulin Ratio Amylase Lipase Urine Color Yellow Urine Appearance Clear Urine pH 8.5 Ur Specific [place] 1.010 Urine Protein Negative Urine Glucose (UA) Negative Urine Ketones Negative Urine Blood Negative Urine Nitrate Negative Urine Bilirubin Negative Urine Urobilinogen 0.2 Ur Leukocyte Esterase Negative Assessment & Plan - Assessment and Plan (Free Text) Assessment: Patient is a 57 year old female with past medical history of HTN, DM2, recurrent diverticulitis presenting with chief complaint of abdominal pain that began this morning and was found to have sigmoid diverticulitis on CT scan. Plan: Diverticulitis - CT abdomen shows acute diverticulitis involving sigmoid colon - afebrile, no leukocytosis - UA unremarkable - Rocephin 1 gm IV daily, Flagyl 500 mg IV Q8H - Morphine and dilaudid for pain management - Zofran 4 mg IV Q6H PRN - NS 100 ccs/hr - NPO diet, home meds held - GI consulted. Appreciate recs. - ID consulted. Appreciate recs. HTN - Hydralazine 10 mg IV Q6H PRN T2DM - Accuchecks ACHS - ISS DVT/GI PPX - Protonix 40 mg IV daily - SCDs Patient seen with Dr. Matthew Quintero PGY-1 - Date & Time Date: 05/21/18 Time: 19:00 <Tiffanie Castro - Last Filed: 05/23/18 19:37> Results - Vital Signs Recent Vital Signs: Last Vital Signs Temp 97.4 F L 05/23/18 14:00 Pulse 66 05/23/18 14:00 Resp 18 05/23/18 14:00 BP 123/89 05/23/18 14:00 Pulse Ox 99 05/23/18 14:00 - Labs Result Diagrams: 05/23/18 07:30 05/23/18 07:30 Labs: Laboratory Results - last 24 hr 05/22/18 05/22/18 05/22/18 07:10 11:27 17:17 WBC RBC Hgb Hct MCV MCH MCHC RDW Plt Count MPV Sodium Potassium Chloride Carbon Dioxide Anion Gap BUN Creatinine Est GFR ( Amer) Est GFR (Non-Af Amer) POC Glucose (mg/dL) 140 H 132 H 170 H Random Glucose Calcium Phosphorus Magnesium Total Bilirubin AST ALT Alkaline Phosphatase Total Protein Albumin Globulin Albumin/Globulin Ratio 05/22/18 05/23/18 05/23/18 21:01 06:37 07:30 WBC 8.7 RBC 3.78 Hgb 9.5 L Hct 30.4 L MCV 80.4 MCH 25.1 MCHC 31.3 RDW 14.7 H Plt Count 191 MPV 9.6 Sodium Potassium Chloride Carbon Dioxide Anion Gap BUN Creatinine Est GFR ( Amer) Est GFR (Non-Af Amer) POC Glucose (mg/dL) 136 H 120 H Random Glucose Calcium Phosphorus Magnesium Total Bilirubin AST ALT Alkaline Phosphatase Total Protein Albumin Globulin Albumin/Globulin Ratio 05/23/18 05/23/18 05/23/18 07:30 11:34 16:18 WBC RBC Hgb Hct MCV MCH MCHC RDW Plt Count MPV Sodium 138 Potassium 3.4 L Chloride 104 Carbon Dioxide 26 Anion Gap 11 BUN 6 L Creatinine 0.7 Est GFR ( Amer) > 60 Est GFR (Non-Af Amer) > 60 POC Glucose (mg/dL) 142 H 118 H Random Glucose 128 H Calcium 8.3 L Phosphorus 3.4 Magnesium 2.0 Total Bilirubin 1.0 AST 17 ALT 25 Alkaline Phosphatase 70 Total Protein 6.7 Albumin 3.3 Globulin 3.3 Albumin/Globulin Ratio 1.0 L Attending/Attestation - Attestation I have personally seen and examined this patient.: Yes I have fully participated in the care of the patient.: Yes I have reviewed all pertinent clinical information: Yes
[2018-05-21] MEDS: Sodium Chloride 0.9% 1,000 ML IV SCH (18:51)
[2018-05-21] MEDS ORDERED: Morphine 2 mg/ml ISec IVP PRN (19:24)
[2018-05-21] MEDS ORDERED: Morphine 5 MG/ML SYRINGE IVP PRN (19:24)
[2018-05-21] MEDS ORDERED: HYDROmorphone 0.5 mg/0.5 ml ISec IVP PRN (19:24)
[2018-05-21] MEDS: Insulin Lispro (humaLOG) MEDIUM Coverage SC SCH (21:20)
[2018-05-21] MEDS: metroNIDAZOLE IV 500 mg/100 ml 500 MG/100 ML BAG IVPB SCH (21:21)
[2018-05-21] MEDS ORDERED: Ciprofloxacin 400mg/200ml D5W 400 MG/200 ML BAG IVPB SCH (22:00)
[2018-05-21] MEDS: Morphine 2 mg/ml ISec IVP PRN (23:38)
[2018-05-22 00:23] VITALS: BMI 33.6
[2018-05-22] MEDS: metroNIDAZOLE IV 500 mg/100 ml 500 MG/100 ML BAG IVPB SCH ×3 (06:10→21:13)
[2018-05-22] MEDS: Morphine 2 mg/ml ISec IVP PRN ×2 (06:13→13:29)
--- NOTE | 2018-05-22 07:20 | CP.PCM.PN ---
<Dru Quintero L - Last Filed: 05/22/18 12:26> Subjective - Date & Time of Evaluation Date of Evaluation: 05/22/18 Time of Evaluation: 07:30 - Subjective Subjective: Resident Progress Note for Hospitalist Service Patient examined at bedside. No acute events overnight. States she slept well overnight and her abdominal pain is improved. Denies fevers, chills, nausea, vomiting, diarrhea, constipation. Objective - Vital Signs/Intake and Output Vital Signs (last 24 hours): Temp Pulse Resp BP Pulse Ox 99.2 F 90 18 132/86 98 05/21/18 21:45 05/21/18 21:45 05/21/18 21:45 05/21/18 21:45 05/21/18 21:45 Intake and Output: 05/22/18 05/22/18 06:59 18:59 Intake Total 1100 Balance 1100 - Medications Medications: Current Medications Hydralazine HCl (Apresoline) 10 mg IVP Q6H PRN PRN Reason: Systolic Blood Pressure Hydromorphone HCl (Dilaudid) 0.5 mg IVP Q6H PRN PRN Reason: Pain, severe (8-10) Sodium Chloride (Sodium Chloride 0.9%) 1,000 mls @ 100 mls/hr IV .Q10H [facility] Last Admin: 05/21/18 18:51 Dose: 100 mls/hr Metronidazole (Flagyl) 500 mg in 100 mls @ 100 mls/hr IVPB Q8 [facility]; Protocol Last Admin: 05/22/18 06:10 Dose: 100 mls/hr Ceftriaxone Sodium (Rocephin 1 Gram Ivpb) 1 gm in 100 mls @ 100 mls/hr IVPB DAILY [facility]; Protocol Insulin Human Lispro (Humalog Med) 0 units SC ACHS [facility]; Protocol Last Admin: 05/21/18 21:20 Dose: Not Given Morphine Sulfate (Morphine) 1 mg IVP Q6H PRN PRN Reason: Pain, Mild (1-3) Morphine Sulfate (Morphine) 2 mg IVP Q6H PRN PRN Reason: Pain, moderate (4-7) Last Admin: 05/22/18 06:13 Dose: 2 mg Ondansetron HCl (Zofran Inj) 4 mg IVP Q6H PRN PRN Reason: Nausea/Vomiting Pantoprazole Sodium (Protonix Inj) 40 mg IVP DAILY [facility] - Labs Labs: 05/21/18 15:03 05/21/18 15:03 PT 12.5 SECONDS (9.4-12.5) 05/21/18 15:03 INR 1.09 05/21/18 15:03 APTT 29.1 Seconds (25.1-36.5) 05/21/18 15:03 - Additional Findings Additional findings: - Constitutional Appears: Non-toxic, No Acute Distress - Head Exam Head Exam: ATRAUMATIC, NORMOCEPHALIC - Eye Exam Eye Exam: EOMI, Normal appearance - ENT Exam ENT Exam: Mucous Membranes Dry - Neck Exam Neck exam: Positive for: Normal Inspection. Negative for: Lymphadenopathy, Tenderness, Thyromegaly - Respiratory Exam Respiratory Exam: Clear to Auscultation Bilateral, NORMAL BREATHING PATTERN. absent: Accessory Muscle Use, Decreased Breath Sounds, Rales, Rhonchi, Wheezes, Respiratory Distress - Cardiovascular Exam Cardiovascular Exam: REGULAR RHYTHM, +S1, +S2 - GI/Abdominal Exam GI & Abdominal Exam: Hypoactive Bowel Sounds, Soft, Tenderness (LLQ). absent: Distended, Firm, Rigid - Extremities Exam Extremities exam: Positive for: full ROM, normal capillary refill, normal inspection, pedal pulses present. Negative for: calf tenderness, pedal edema - Neurological Exam Neurological exam: Alert, Oriented x3 - Psychiatric Exam Psychiatric exam: Normal Affect, Normal Mood - Skin Skin Exam: Dry, Intact, Normal Color, Warm Assessment and Plan - Assessment and Plan (Free Text) Assessment: Patient is a 57 year old female with past medical history of HTN, DM2, recurrent diverticulitis presenting with chief complaint of abdominal pain that began this morning and was found to have sigmoid diverticulitis on CT scan. Plan: Diverticulitis - CT abdomen shows acute diverticulitis involving sigmoid colon - afebrile, no leukocytosis - UA unremarkable - Rocephin 1 gm IV daily, Flagyl 500 mg IV Q8H - Morphine and dilaudid for pain management - Zofran 4 mg IV Q6H PRN - NS 100 ccs/hr - Advance to liquid diet - GI consulted. Appreciate recs. - ID consulted. Appreciate recs. - Surgery consulted. Appreciate recs. HTN - Hydralazine 10 mg IV Q6H PRN T2DM - Accuchecks ACHS - ISS DVT/GI PPX - Protonix 40 mg IV daily - SCDs Patient seen with Dr. Phil Quintero PGY-1 <Rae Villarreal - Last Filed: 05/22/18 16:37> Objective - Vital Signs/Intake and Output Vital Signs (last 24 hours): Temp Pulse Resp BP Pulse Ox 99.2 F 92 H 20 141/92 H 98 05/22/18 15:20 05/22/18 15:20 05/22/18 14:00 05/22/18 15:20 05/22/18 15:20 Intake and Output: 05/22/18 05/22/18 06:59 18:59 Intake Total 1100 Balance 1100 - Medications Medications: Current Medications Hydralazine HCl (Apresoline) 10 mg IVP Q6H PRN PRN Reason: Systolic Blood Pressure Hydromorphone HCl (Dilaudid) 0.5 mg IVP Q6H PRN PRN Reason: Pain, severe (8-10) Sodium Chloride (Sodium Chloride 0.9%) 1,000 mls @ 100 mls/hr IV .Q10H [facility]ANY Last Admin: 05/22/18 09:41 Dose: 100 mls/hr Metronidazole (Flagyl) 500 mg in 100 mls @ 100 mls/hr IVPB Q8 [facility]; Protocol Last Admin: 05/22/18 13:29 Dose: 100 mls/hr Ceftriaxone Sodium (Rocephin 1 Gram Ivpb) 1 gm in 100 mls @ 100 mls/hr IVPB DAILY [facility]; Protocol Last Admin: 05/22/18 09:41 Dose: 100 mls/hr Insulin Human Lispro (Humalog Med) 0 units SC [facility]; Protocol Last Admin: 05/21/18 21:20 Dose: Not Given Morphine Sulfate (Morphine) 1 mg IVP Q6H PRN PRN Reason: Pain, Mild (1-3) Morphine Sulfate (Morphine) 2 mg IVP Q6H PRN PRN Reason: Pain, moderate (4-7) Last Admin: 05/22/18 13:29 Dose: 2 mg Ondansetron HCl (Zofran Inj) 4 mg IVP Q6H PRN PRN Reason: Nausea/Vomiting Last Admin: 05/22/18 13:37 Dose: 4 mg Pantoprazole Sodium (Protonix Inj) 40 mg IVP DAILY [facility] Last Admin: 05/22/18 09:41 Dose: 40 mg - Labs Labs: 05/22/18 07:00 05/22/18 07:00 PT 12.5 SECONDS (9.4-12.5) 05/21/18 15:03 INR 1.09 05/21/18 15:03 APTT 29.1 Seconds (25.1-36.5) 05/21/18 15:03 Attending/Attestation - Attestation I have personally seen and examined this patient.: Yes I have fully participated in the care of the patient.: Yes I have reviewed all pertinent clinical information, including history, physical exam and plan: Yes Notes (Text): 05/22/18 16:34 57 year old female with past medical history of hypertension, diabetes and recurrent diverticulitis who presented with complaint of abdominal pain found to have acute sigmoid diverticulitis. GI and surgery are following the patient. She is on iv fluids, analgesics and antibiotics. Diet is advanced to liquids today. Will need to discuss with surgery given frequent recurrency of diverticulitis. Rae Villarreal MD Hospitalist.
[2018-05-22 07:54] LABS: HEMOGLOBIN 10.3 g/dL (12.0-16.0); MEAN CELL VOLUME 80.5 fl (80.0-105.0); MEAN CORPUSCULAR HEMOGLOBIN 25.4 pg (25.0-35.0); MEAN CORPUSCULAR HGB CONC 31.6 g/dl (31.0-37.0); MEAN PLATELET VOLUME 9.7 fl (7.0-11.0); RBC 4.05 10^6/uL (3.5-6.1); RED CELL DISTRIBUTION WIDTH 14.7 % (11.5-14.5); WHITE BLOOD COUNT 10.7 10^3/uL (4.5-11.0)
--- NOTE | 2018-05-22 08:19 | CP.PCM.CON ---
<MarcusalannahronyLarry - Last Filed: 05/22/18 12:39> History of Present Illness - History of Present Illness History of Present Illness: GI Fellow PGY4, Consult note. Kiana Sales, 57F, presented with acute left-sided abdominal pain. She has had 3- 4 episodes of diverticulitis in the past year alone, last episode was 1 month ago. She has been unable to see a surgeon in the clinic thus far. She has been able to see Dr. Basurto in the [facility] and was following up regularly. CT in ED showed signs of acute diverticulitis. She has been placed on Abx rocephin and flagyl. Today, patient is feeling better, much less abdominal pain. Denies nausea vomiting, fever. CSPY - 03/15 - Sb, Tics, repeat in 10yrs EGD - 03/15 - Sb, Atrophic gastritis, Gastric Intestinal Metaplasia PMHx - T2DM, HTN, diverticulitis SurgHx: Partial hysterectomy due to uterine bleeding Meds: Reviewed in chart FamHx: Neg for colon cancer; states sisters have stomach pains of unknown etiology SocHx: Denies Tobacco, ETOH, IVD All: Egg 12pt ROS completed and negative except for above. Past Patient History - Infectious Disease Hx of Infectious Diseases: None - Past Medical History & Family History Past Medical History?: Yes - Past Social History Smoking Status: Never Smoked - CARDIAC Hx Hypertension: Yes - PULMONARY Hx Asthma: No Hx Bronchitis: No Hx Chronic Obstructive Pulmonary Disease (COPD): No Hx Emphysema: No Hx Pneumonia: No Hx Respiratory Aspiration: No Hx Respiratory Tract Infection: No Hx Sleep Apnea: No Hx Tuberculosis: No - NEUROLOGICAL Hx Alzheimer's Disease: No HX Cerebrovascular Accident: No Hx Dementia: No Hx Dizziness: No Hx Meningitis: No Hx Migraine: No Hx Parkinson's Disease: No Hx Seizures: No Hx Transient Ischemic Attacks (TIA): No - HEENT Hx HEENT Problems: No - RENAL Hx Chronic Kidney Disease: No - ENDOCRINE/METABOLIC Hx Diabetes Mellitus Type 2: Yes - HEMATOLOGICAL/ONCOLOGICAL Hx Blood Disorders: No - INTEGUMENTARY Hx Dermatological Problems: No - MUSCULOSKELETAL/RHEUMATOLOGICAL Hx Falls: No - GASTROINTESTINAL Hx Diverticulitis: Yes - GENITOURINARY/GYNECOLOGICAL Hx Genitourinary Disorders: No - PSYCHIATRIC Hx Psychophysiologic Disorder: No Hx Depression: No Hx Emotional Abuse: No Hx Physical Abuse: No Hx Substance Use: No - SURGICAL HISTORY Hx Hysterectomy: (partial hysterctomy) Other/Comment: vit d deficiency - ANESTHESIA Hx Anesthesia: Yes Hx Anesthesia Reactions: No Hx Malignant Hyperthermia: No Meds Allergies/Adverse Reactions: Allergies Allergy/AdvReac Type Severity Reaction Status Date / Time EGG Allergy ANAPHYLAXIS Verified 04/06/18 22:56 - Medications Medications: Current Medications Hydralazine HCl (Apresoline) 10 mg IVP Q6H PRN PRN Reason: Systolic Blood Pressure Hydromorphone HCl (Dilaudid) 0.5 mg IVP Q6H PRN PRN Reason: Pain, severe (8-10) Sodium Chloride (Sodium Chloride 0.9%) 1,000 mls @ 100 mls/hr IV .Q10H [facility]ANY Last Admin: 05/21/18 18:51 Dose: 100 mls/hr Metronidazole (Flagyl) 500 mg in 100 mls @ 100 mls/hr IVPB Q8 [facility]; Protocol Last Admin: 05/22/18 06:10 Dose: 100 mls/hr Ceftriaxone Sodium (Rocephin 1 Gram Ivpb) 1 gm in 100 mls @ 100 mls/hr IVPB DAILY [facility]; Protocol Insulin Human Lispro (Humalog Med) 0 units SC ACHS [facility]; Protocol Last Admin: 05/21/18 21:20 Dose: Not Given Morphine Sulfate (Morphine) 1 mg IVP Q6H PRN PRN Reason: Pain, Mild (1-3) Morphine Sulfate (Morphine) 2 mg IVP Q6H PRN PRN Reason: Pain, moderate (4-7) Last Admin: 05/22/18 06:13 Dose: 2 mg Ondansetron HCl (Zofran Inj) 4 mg IVP Q6H PRN PRN Reason: Nausea/Vomiting Pantoprazole Sodium (Protonix Inj) 40 mg IVP DAILY [facility] Physical Exam - Constitutional Appears: Non-toxic, No Acute Distress - Head Exam Head Exam: NORMAL INSPECTION, NORMOCEPHALIC - Eye Exam Eye Exam: EOMI, Normal appearance - ENT Exam ENT Exam: Mucous Membranes Dry - Respiratory Exam Respiratory Exam: Clear to Auscultation Bilateral, NORMAL BREATHING PATTERN - Cardiovascular Exam Cardiovascular Exam: REGULAR RHYTHM, +S1, +S2 - GI/Abdominal Exam GI & Abdominal Exam: Normal Bowel Sounds, Soft, Tenderness - Extremities Exam Extremities exam: Positive for: normal inspection - Neurological Exam Neurological exam: Alert, CN II-XII Intact, Oriented x3 - Psychiatric Exam Psychiatric exam: Normal Affect, Normal Mood - Skin Skin Exam: Dry, Normal Color Results - Vital Signs Recent Vital Signs: Last Vital Signs Temp 98.4 F 05/22/18 06:00 Pulse 87 05/22/18 06:00 Resp 20 05/22/18 06:00 BP 133/82 05/22/18 06:00 Pulse Ox 96 05/22/18 06:00 - Labs Result Diagrams: 05/22/18 07:00 05/22/18 07:00 Labs: Laboratory Results - last 24 hr 05/21/18 05/21/18 05/21/18 15:03 15:03 15:03 WBC 10.2 RBC 4.66 Hgb 12.0 D Hct 37.2 MCV 79.8 L MCH 25.8 MCHC 32.3 RDW 14.7 H Plt Count 228 MPV 9.5 Gran % 77.6 H Lymph % (Auto) 16.2 L Power % (Auto) 5.2 Eos % (Auto) 0.9 L Baso % (Auto) 0.1 Gran # 7.91 H Lymph # (Auto) 1.7 Power # (Auto) 0.5 Eos # (Auto) 0.1 Baso # (Auto) 0.01 PT 12.5 INR 1.09 APTT 29.1 Sodium 141 Potassium 4.5 Chloride 103 Carbon Dioxide 29 Anion Gap 13 BUN 10 Creatinine 0.6 L Est GFR ( Amer) > 60 Est GFR (Non-Af Amer) > 60 POC Glucose (mg/dL) Random Glucose 166 H Calcium 9.5 Total Bilirubin 0.5 AST 31 ALT 32 Alkaline Phosphatase 83 Lactate Dehydrogenase 350 Total Creatine Kinase 245 H CK-MB (CK-2) 0.5 CK-MB (CK-2) % Cancelled Troponin I < 0.01 Total Protein 8.2 Albumin 4.5 Globulin 3.7 Albumin/Globulin Ratio 1.2 Amylase 83 Lipase 96 Urine Color Urine Appearance Urine pH Ur Specific [place] Urine Protein Urine Glucose (UA) Urine Ketones Urine Blood Urine Nitrate Urine Bilirubin Urine Urobilinogen Ur Leukocyte Esterase 05/21/18 05/21/18 05/22/18 17:22 20:47 07:00 WBC 10.7 RBC 4.05 Hgb 10.3 L Hct 32.6 L MCV 80.5 MCH 25.4 MCHC 31.6 RDW 14.7 H Plt Count 219 MPV 9.7 Gran % Lymph % (Auto) Power % (Auto) Eos % (Auto) Baso % (Auto) Gran # Lymph # (Auto) Power # (Auto) Eos # (Auto) Baso # (Auto) PT INR APTT Sodium Potassium Chloride Carbon Dioxide Anion Gap BUN Creatinine Est GFR ( Amer) Est GFR (Non-Af Amer) POC Glucose (mg/dL) 165 H Random Glucose Calcium Total Bilirubin AST ALT Alkaline Phosphatase Lactate Dehydrogenase Total Creatine Kinase CK-MB (CK-2) CK-MB (CK-2) % Troponin I Total Protein Albumin Globulin Albumin/Globulin Ratio Amylase Lipase Urine Color Yellow Urine Appearance Clear Urine pH 8.5 Ur Specific [place] 1.010 Urine Protein Negative Urine Glucose (UA) Negative Urine Ketones Negative Urine Blood Negative Urine Nitrate Negative Urine Bilirubin Negative Urine Urobilinogen 0.2 Ur Leukocyte Esterase Negative Assessment & Plan - Assessment and Plan (Free Text) Assessment: #Acute abdominal pain #Recurrent diverticulitis #HTN #T2DM PLAN: -CT abd/pelv reviewed, agree with diverticulitis. -Start CLD tonight -Continue abx for GNR (rocephin) and anaerobe (flagyl) coverage -Patient would benefit from surgical evaluation. Patient has been [facility] and was following up. Last CSPY was 03/15. Discussed case with Dr. Joyce and Primary team. - Date & Time Date: 05/22/18 Time: 09:44 <Arnol Potts - Last Filed: 05/22/18 13:04> Meds - Medications Medications: Current Medications Hydralazine HCl (Apresoline) 10 mg IVP Q6H PRN PRN Reason: Systolic Blood Pressure Hydromorphone HCl (Dilaudid) 0.5 mg IVP Q6H PRN PRN Reason: Pain, severe (8-10) Sodium Chloride (Sodium Chloride 0.9%) 1,000 mls @ 100 mls/hr IV .Q10H [facility]ANY Last Admin: 05/22/18 09:41 Dose: 100 mls/hr Metronidazole (Flagyl) 500 mg in 100 mls @ 100 mls/hr IVPB Q8 [facility]; Protocol Last Admin: 05/22/18 06:10 Dose: 100 mls/hr Ceftriaxone Sodium (Rocephin 1 Gram Ivpb) 1 gm in 100 mls @ 100 mls/hr IVPB DAILY [facility]; Protocol Last Admin: 05/22/18 09:41 Dose: 100 mls/hr Insulin Human Lispro (Humalog Med) 0 units SC ACHS [facility]; Protocol Last Admin: 05/21/18 21:20 Dose: Not Given Morphine Sulfate (Morphine) 1 mg IVP Q6H PRN PRN Reason: Pain, Mild (1-3) Morphine Sulfate (Morphine) 2 mg IVP Q6H PRN PRN Reason: Pain, moderate (4-7) Last Admin: 05/22/18 06:13 Dose: 2 mg Ondansetron HCl (Zofran Inj) 4 mg IVP Q6H PRN PRN Reason: Nausea/Vomiting Pantoprazole Sodium (Protonix Inj) 40 mg IVP DAILY [facility] Last Admin: 05/22/18 09:41 Dose: 40 mg Results - Vital Signs Recent Vital Signs: Last Vital Signs Temp 98.4 F 05/22/18 06:00 Pulse 87 05/22/18 06:00 Resp 20 05/22/18 06:00 BP 133/82 05/22/18 06:00 Pulse Ox 96 05/22/18 06:00 - Labs Result Diagrams: 05/22/18 07:00 05/22/18 07:00 Labs: Laboratory Results - last 24 hr 05/21/18 05/21/18 05/21/18 15:03 15:03 15:03 WBC 10.2 RBC 4.66 Hgb 12.0 D Hct 37.2 MCV 79.8 L MCH 25.8 MCHC 32.3 RDW 14.7 H Plt Count 228 MPV 9.5 Gran % 77.6 H Lymph % (Auto) 16.2 L Power % (Auto) 5.2 Eos % (Auto) 0.9 L Baso % (Auto) 0.1 Gran # 7.91 H Lymph # (Auto) 1.7 Power # (Auto) 0.5 Eos # (Auto) 0.1 Baso # (Auto) 0.01 PT 12.5 INR 1.09 APTT 29.1 Sodium 141 Potassium 4.5 Chloride 103 Carbon Dioxide 29 Anion Gap 13 BUN 10 Creatinine 0.6 L Est GFR ( Amer) > 60 Est GFR (Non-Af Amer) > 60 POC Glucose (mg/dL) Random Glucose 166 H Calcium 9.5 Phosphorus Magnesium Total Bilirubin 0.5 AST 31 ALT 32 Alkaline Phosphatase 83 Lactate Dehydrogenase 350 Total Creatine Kinase 245 H CK-MB (CK-2) 0.5 CK-MB (CK-2) % Cancelled Troponin I < 0.01 Total Protein 8.2 Albumin 4.5 Globulin 3.7 Albumin/Globulin Ratio 1.2 Amylase 83 Lipase 96 Urine Color Urine Appearance Urine pH Ur Specific [place] Urine Protein Urine Glucose (UA) Urine Ketones Urine Blood Urine Nitrate Urine Bilirubin Urine Urobilinogen Ur Leukocyte Esterase 05/21/18 05/21/18 05/22/18 17:22 20:47 07:00 WBC 10.7 RBC 4.05 Hgb 10.3 L Hct 32.6 L MCV 80.5 MCH 25.4 MCHC 31.6 RDW 14.7 H Plt Count 219 MPV 9.7 Gran % Lymph % (Auto) Power % (Auto) Eos % (Auto) Baso % (Auto) Gran # Lymph # (Auto) Power # (Auto) Eos # (Auto) Baso # (Auto) PT INR APTT Sodium Potassium Chloride Carbon Dioxide Anion Gap BUN Creatinine Est GFR ( Amer) Est GFR (Non-Af Amer) POC Glucose (mg/dL) 165 H Random Glucose Calcium Phosphorus Magnesium Total Bilirubin AST ALT Alkaline Phosphatase Lactate Dehydrogenase Total Creatine Kinase CK-MB (CK-2) CK-MB (CK-2) % Troponin I Total Protein Albumin Globulin Albumin/Globulin Ratio Amylase Lipase Urine Color Yellow Urine Appearance Clear Urine pH 8.5 Ur Specific [place] 1.010 Urine Protein Negative Urine Glucose (UA) Negative Urine Ketones Negative Urine Blood Negative Urine Nitrate Negative Urine Bilirubin Negative Urine Urobilinogen 0.2 Ur Leukocyte Esterase Negative 05/22/18 07:00 WBC RBC Hgb Hct MCV MCH MCHC RDW Plt Count MPV Gran % Lymph % (Auto) Power % (Auto) Eos % (Auto) Baso % (Auto) Gran # Lymph # (Auto) Power # (Auto) Eos # (Auto) Baso # (Auto) PT INR APTT Sodium 138 Potassium 3.8 Chloride 102 Carbon Dioxide 27 Anion Gap 13 BUN 7 Creatinine 0.6 L Est GFR ( Amer) > 60 Est GFR (Non-Af Amer) > 60 POC Glucose (mg/dL) Random Glucose 159 H Calcium 8.5 Phosphorus 3.5 Magnesium 1.8 Total Bilirubin 0.9 AST 24 ALT 24 Alkaline Phosphatase 75 Lactate Dehydrogenase Total Creatine Kinase CK-MB (CK-2) CK-MB (CK-2) % Troponin I Total Protein 7.1 Albumin 3.8 Globulin 3.3 Albumin/Globulin Ratio 1.2 Amylase Lipase Urine Color Urine Appearance Urine pH Ur Specific [place] Urine Protein Urine Glucose (UA) Urine Ketones Urine Blood Urine Nitrate Urine Bilirubin Urine Urobilinogen Ur Leukocyte Esterase Attending/Attestation - Attestation I have personally seen and examined this patient.: Yes I have fully participated in the care of the patient.: Yes I have reviewed all pertinent clinical information: Yes Notes (Text): 05/22/18 11:36 The pt was seen and examined. Chart reviewed. Assessment, findings and recommendations as documented above were discussed with Dr. Quiros.
[2018-05-22 08:23] LABS: ALB/GLOB RATIO 1.2 (1.1-1.8); ALBUMIN 3.8 g/dL (3.0-4.8); ALT/SGPT 24 U/L (7-56); AST/SGOT 24 U/L (14-36); BLOOD UREA NITROGEN 7 mg/dL (7-21); CALCIUM 8.5 mg/dL (8.4-10.5); GFR NON-AFRICAN AMERICAN > 60
--- NOTE | 2018-05-22 09:14 | CP.PCM.CON ---
History of Present Illness - History of Present Illness History of Present Illness: Surgery Consult Note- Dr. Joyce 57F w/ pmhx of HTN, DM, and diverticulosis w/ 3x hospitalizations for diverticulitis this year presents complaining of isolated Left lower abdominal pain the started 1 days ago. She states the pain became progressively worse which prompted ER visit. She complains of some nausea no vomiting, fever or chills. She has reports normal po intake, normal bowel function with last bowel movement yesterday, no hematochezia or constipation. During encounter patient has some residual LLQ pain however improved from yesterday. States she has an appetite. Surgery was consulted for recurrent diverticulitis 5th episode over 1 year. Currently pt is on IVAbx CTX and Flagyl. Of note colonoscopy in February 2018 which showed diverticular disease through the sigmoid and descending colon, no acute inflammation. Patient also underwent EGD at time of colonoscopy which showed gastric polyps and gastritis, pathology showed chronic inflammation no H. Pylori. PMH: HTN, DM, diverticulitis, gastritis PSH: partial hysterectomy for uterine fibroids 2001, colonoscopy, EGD ALL: Eggs SocialHx: denies toxic habits Family hx; no history of colon CA, sister with similar abdominal pain but no diagnosis Past Patient History - Infectious Disease Hx of Infectious Diseases: None - Past Medical History & Family History Past Medical History?: Yes - Past Social History Smoking Status: Never Smoked - CARDIAC Hx Hypertension: Yes - PULMONARY Hx Asthma: No Hx Bronchitis: No Hx Chronic Obstructive Pulmonary Disease (COPD): No Hx Emphysema: No Hx Pneumonia: No Hx Respiratory Aspiration: No Hx Respiratory Tract Infection: No Hx Sleep Apnea: No Hx Tuberculosis: No - NEUROLOGICAL Hx Alzheimer's Disease: No HX Cerebrovascular Accident: No Hx Dementia: No Hx Dizziness: No Hx Meningitis: No Hx Migraine: No Hx Parkinson's Disease: No Hx Seizures: No Hx Transient Ischemic Attacks (TIA): No - HEENT Hx HEENT Problems: No - RENAL Hx Chronic Kidney Disease: No - ENDOCRINE/METABOLIC Hx Diabetes Mellitus Type 2: Yes - HEMATOLOGICAL/ONCOLOGICAL Hx Blood Disorders: No - INTEGUMENTARY Hx Dermatological Problems: No - MUSCULOSKELETAL/RHEUMATOLOGICAL Hx Falls: No - GASTROINTESTINAL Hx Diverticulitis: Yes - GENITOURINARY/GYNECOLOGICAL Hx Genitourinary Disorders: No - PSYCHIATRIC Hx Psychophysiologic Disorder: No Hx Depression: No Hx Emotional Abuse: No Hx Physical Abuse: No Hx Substance Use: No - SURGICAL HISTORY Hx Hysterectomy: (partial hysterctomy) Other/Comment: vit d deficiency - ANESTHESIA Hx Anesthesia: Yes Hx Anesthesia Reactions: No Hx Malignant Hyperthermia: No Meds Allergies/Adverse Reactions: Allergies Allergy/AdvReac Type Severity Reaction Status Date / Time EGG Allergy ANAPHYLAXIS Verified 04/06/18 22:56 - Medications Medications: Current Medications Hydralazine HCl (Apresoline) 10 mg IVP Q6H PRN PRN Reason: Systolic Blood Pressure Hydromorphone HCl (Dilaudid) 0.5 mg IVP Q6H PRN PRN Reason: Pain, severe (8-10) Sodium Chloride (Sodium Chloride 0.9%) 1,000 mls @ 100 mls/hr IV .Q10H [facility] Last Admin: 05/21/18 18:51 Dose: 100 mls/hr Metronidazole (Flagyl) 500 mg in 100 mls @ 100 mls/hr IVPB Q8 [facility]; Protocol Last Admin: 05/22/18 06:10 Dose: 100 mls/hr Ceftriaxone Sodium (Rocephin 1 Gram Ivpb) 1 gm in 100 mls @ 100 mls/hr IVPB DAILY [facility]; Protocol Insulin Human Lispro (Humalog Med) 0 units SC ACHS [facility]; Protocol Last Admin: 05/21/18 21:20 Dose: Not Given Morphine Sulfate (Morphine) 1 mg IVP Q6H PRN PRN Reason: Pain, Mild (1-3) Morphine Sulfate (Morphine) 2 mg IVP Q6H PRN PRN Reason: Pain, moderate (4-7) Last Admin: 05/22/18 06:13 Dose: 2 mg Ondansetron HCl (Zofran Inj) 4 mg IVP Q6H PRN PRN Reason: Nausea/Vomiting Pantoprazole Sodium (Protonix Inj) 40 mg IVP DAILY [facility] Physical Exam - Constitutional Appears: Non-toxic, No Acute Distress - Head Exam Head Exam: ATRAUMATIC - Eye Exam Eye Exam: EOMI. absent: Scleral icterus - ENT Exam ENT Exam: Mucous Membranes Moist - Respiratory Exam Respiratory Exam: NORMAL BREATHING PATTERN. absent: Accessory Muscle Use, Respiratory Distress - Cardiovascular Exam Cardiovascular Exam: +S1, +S2. absent: Bradycardia, Tachycardia - GI/Abdominal Exam GI & Abdominal Exam: Soft, Tenderness (LLQ tenderness to deep palpation). absent: Diminished Bowel Sounds, Distended, Firm, Guarding, Hernia - Extremities Exam Extremities exam: Negative for: calf tenderness - Neurological Exam Neurological exam: Alert, Oriented x3 - Psychiatric Exam Psychiatric exam: Normal Affect - Skin Skin Exam: Intact, Warm Results - Vital Signs Recent Vital Signs: Last Vital Signs Temp 98.4 F 05/22/18 06:00 Pulse 87 05/22/18 06:00 Resp 20 05/22/18 06:00 BP 133/82 05/22/18 06:00 Pulse Ox 96 05/22/18 06:00 - Labs Result Diagrams: 05/22/18 07:00 05/22/18 07:00 Labs: Laboratory Results - last 24 hr 05/21/18 05/21/18 05/21/18 15:03 15:03 15:03 WBC 10.2 RBC 4.66 Hgb 12.0 D Hct 37.2 MCV 79.8 L MCH 25.8 MCHC 32.3 RDW 14.7 H Plt Count 228 MPV 9.5 Gran % 77.6 H Lymph % (Auto) 16.2 L [place] % (Auto) 5.2 Eos % (Auto) 0.9 L Baso % (Auto) 0.1 Gran # 7.91 H Lymph # (Auto) 1.7 [place] # (Auto) 0.5 Eos # (Auto) 0.1 Baso # (Auto) 0.01 PT 12.5 INR 1.09 APTT 29.1 Sodium 141 Potassium 4.5 Chloride 103 Carbon Dioxide 29 Anion Gap 13 BUN 10 Creatinine 0.6 L Est GFR ( Amer) > 60 Est GFR (Non-Af Amer) > 60 POC Glucose (mg/dL) Random Glucose 166 H Calcium 9.5 Phosphorus Magnesium Total Bilirubin 0.5 AST 31 ALT 32 Alkaline Phosphatase 83 Lactate Dehydrogenase 350 Total Creatine Kinase 245 H CK-MB (CK-2) 0.5 CK-MB (CK-2) % Cancelled Troponin I < 0.01 Total Protein 8.2 Albumin 4.5 Globulin 3.7 Albumin/Globulin Ratio 1.2 Amylase 83 Lipase 96 Urine Color Urine Appearance Urine pH Ur Specific [place] Urine Protein Urine Glucose (UA) Urine Ketones Urine Blood Urine Nitrate Urine Bilirubin Urine Urobilinogen Ur Leukocyte Esterase 05/21/18 05/21/18 05/22/18 17:22 20:47 07:00 WBC 10.7 RBC 4.05 Hgb 10.3 L Hct 32.6 L MCV 80.5 MCH 25.4 MCHC 31.6 RDW 14.7 H Plt Count 219 MPV 9.7 Gran % Lymph % (Auto) [place] % (Auto) Eos % (Auto) Baso % (Auto) Gran # Lymph # (Auto) [place] # (Auto) Eos # (Auto) Baso # (Auto) PT INR APTT Sodium Potassium Chloride Carbon Dioxide Anion Gap BUN Creatinine Est GFR ( Amer) Est GFR (Non-Af Amer) POC Glucose (mg/dL) 165 H Random Glucose Calcium Phosphorus Magnesium Total Bilirubin AST ALT Alkaline Phosphatase Lactate Dehydrogenase Total Creatine Kinase CK-MB (CK-2) CK-MB (CK-2) % Troponin I Total Protein Albumin Globulin Albumin/Globulin Ratio Amylase Lipase Urine Color Yellow Urine Appearance Clear Urine pH 8.5 Ur Specific [place] 1.010 Urine Protein Negative Urine Glucose (UA) Negative Urine Ketones Negative Urine Blood Negative Urine Nitrate Negative Urine Bilirubin Negative Urine Urobilinogen 0.2 Ur Leukocyte Esterase Negative 05/22/18 07:00 WBC RBC Hgb Hct MCV MCH MCHC RDW Plt Count MPV Gran % Lymph % (Auto) [place] % (Auto) Eos % (Auto) Baso % (Auto) Gran # Lymph # (Auto) [place] # (Auto) Eos # (Auto) Baso # (Auto) PT INR APTT Sodium 138 Potassium 3.8 Chloride 102 Carbon Dioxide 27 Anion Gap 13 BUN 7 Creatinine 0.6 L Est GFR ( Amer) > 60 Est GFR (Non-Af Amer) > 60 POC Glucose (mg/dL) Random Glucose 159 H Calcium 8.5 Phosphorus 3.5 Magnesium 1.8 Total Bilirubin 0.9 AST 24 ALT 24 Alkaline Phosphatase 75 Lactate Dehydrogenase Total Creatine Kinase CK-MB (CK-2) CK-MB (CK-2) % Troponin I Total Protein 7.1 Albumin 3.8 Globulin 3.3 Albumin/Globulin Ratio 1.2 Amylase Lipase Urine Color Urine Appearance Urine pH Ur Specific [place] Urine Protein Urine Glucose (UA) Urine Ketones Urine Blood Urine Nitrate Urine Bilirubin Urine Urobilinogen Ur Leukocyte Esterase Assessment & Plan - Assessment and Plan (Free Text) Assessment: 57 F w/ LLQ abdominal pain 2/2 recurrent diverticulitis Plan: - Pain control PRN - anti-emetic PRN - stool softeners - NPO - Bowel Rest - IVF - will re-evaluate tomorrow pain tomorrow morning PGY2
[2018-05-22] MEDS: Sodium Chloride 0.9% 1,000 ML IV SCH (09:41)
--- NOTE | 2018-05-22 09:52 | RAD ---
HISTORY: admission COMPARISON: Chest x-ray performed 11/08/17 TECHNIQUE: Chest, one view. FINDINGS: Examination limited by habitus and hypoinflation. LUNGS: No focal consolidation. Please note that chest x-ray has limited sensitivity for the detection of pulmonary masses. PLEURA: No significant pleural effusion identified. No definite pneumothorax . CARDIOVASCULAR: Heart size appears top normal. No significant atherosclerotic calcification present. OSSEOUS STRUCTURES: Degenerative changes. VISUALIZED UPPER ABDOMEN: Elevation of the right hemidiaphragm. OTHER FINDINGS: None. IMPRESSION: No focal consolidation.
[2018-05-22] MEDS ORDERED: HYDROmorphone 0.5 mg/0.5 ml ISec IVP PRN (10:00)
[2018-05-22] MEDS ORDERED: cefTRIAXone 1 gm 1 GM/100 ML BAG IVPB SCH (10:00)
--- NOTE | 2018-05-22 18:23 | CP.PCM.CON ---
History of Present Illness - History of Present Illness History of Present Illness: Infectious Disease Consultation: May 22, 2018 57 yo female with PMHx of Diverticulosis, HTN, and DM who presents again with left lower quadrant pain starting a day prior to admission. The patient states that the pain has progressively worsened throughout the day. 5th hospitalization this year for abdominal pain and diverticulosis/diverticulitis. Patient is currently on Ceftriaxone for antibiotic care. No additional issues. PMHx: Diverticulitis, hypertension, diabetes mellitus PSHx: Partial hysterectomy due to uterine bleeding Allergies: Egg Social Hx: No tobacco, EtOH, or illicit drug use Active Medications Hydralazine HCl (Apresoline) 10 mg IVP Q6H PRN PRN Reason: Systolic Blood Pressure Hydromorphone HCl (Dilaudid) 0.5 mg IVP Q6H PRN PRN Reason: Pain, severe (8-10) Last Admin: 05/22/18 17:13 Dose: 0.5 mg Sodium Chloride (Sodium Chloride 0.9%) 1,000 mls @ 100 mls/hr IV .Q10H [facility] Last Admin: 05/22/18 09:41 Dose: 100 mls/hr Metronidazole (Flagyl) 500 mg in 100 mls @ 100 mls/hr IVPB Q8 [facility]; Protocol Last Admin: 05/22/18 13:29 Dose: 100 mls/hr Ceftriaxone Sodium (Rocephin 1 Gram Ivpb) 1 gm in 100 mls @ 100 mls/hr IVPB DAILY [facility]; Protocol Last Admin: 05/22/18 09:41 Dose: 100 mls/hr Insulin Human Lispro (Humalog Med) 0 units SC ACHS [facility]; Protocol Last Admin: 05/21/18 21:20 Dose: Not Given Morphine Sulfate (Morphine) 1 mg IVP Q6H PRN PRN Reason: Pain, Mild (1-3) Morphine Sulfate (Morphine) 2 mg IVP Q6H PRN PRN Reason: Pain, moderate (4-7) Last Admin: 05/22/18 13:29 Dose: 2 mg Ondansetron HCl (Zofran Inj) 4 mg IVP Q6H PRN PRN Reason: Nausea/Vomiting Last Admin: 05/22/18 13:37 Dose: 4 mg Pantoprazole Sodium (Protonix Inj) 40 mg IVP DAILY [facility] Last Admin: 05/22/18 09:41 Dose: 40 mg Family Hx: none given ROS: No fevers, chills, headaches, dizziness, chest pain, melena, hematuria, hematemesis, hematochezia, depression, anxiety Patient had nausea, vomiting, and abdominal pain. Past Patient History - Infectious Disease Hx of Infectious Diseases: None - Past Medical History & Family History Past Medical History?: Yes - Past Social History Smoking Status: Never Smoked - CARDIAC Hx Hypertension: Yes - PULMONARY Hx Asthma: No Hx Bronchitis: No Hx Chronic Obstructive Pulmonary Disease (COPD): No Hx Emphysema: No Hx Pneumonia: No Hx Respiratory Aspiration: No Hx Respiratory Tract Infection: No Hx Sleep Apnea: No Hx Tuberculosis: No - NEUROLOGICAL Hx Alzheimer's Disease: No HX Cerebrovascular Accident: No Hx Dementia: No Hx Dizziness: No Hx Meningitis: No Hx Migraine: No Hx Parkinson's Disease: No Hx Seizures: No Hx Transient Ischemic Attacks (TIA): No - HEENT Hx HEENT Problems: No - RENAL Hx Chronic Kidney Disease: No - ENDOCRINE/METABOLIC Hx Diabetes Mellitus Type 2: Yes - HEMATOLOGICAL/ONCOLOGICAL Hx Blood Disorders: No - INTEGUMENTARY Hx Dermatological Problems: No - MUSCULOSKELETAL/RHEUMATOLOGICAL Hx Falls: No - GASTROINTESTINAL Hx Diverticulitis: Yes - GENITOURINARY/GYNECOLOGICAL Hx Genitourinary Disorders: No - PSYCHIATRIC Hx Psychophysiologic Disorder: No Hx Depression: No Hx Emotional Abuse: No Hx Physical Abuse: No Hx Substance Use: No - SURGICAL HISTORY Hx Hysterectomy: (partial hysterctomy) Other/Comment: vit d deficiency - ANESTHESIA Hx Anesthesia: Yes Hx Anesthesia Reactions: No Hx Malignant Hyperthermia: No Meds Allergies/Adverse Reactions: Allergies Allergy/AdvReac Type Severity Reaction Status Date / Time EGG Allergy ANAPHYLAXIS Verified 04/06/18 22:56 - Medications Medications: Current Medications Hydralazine HCl (Apresoline) 10 mg IVP Q6H PRN PRN Reason: Systolic Blood Pressure Hydromorphone HCl (Dilaudid) 0.5 mg IVP Q6H PRN PRN Reason: Pain, severe (8-10) Last Admin: 05/22/18 17:13 Dose: 0.5 mg Sodium Chloride (Sodium Chloride 0.9%) 1,000 mls @ 100 mls/hr IV .Q10H [facility] Last Admin: 05/22/18 09:41 Dose: 100 mls/hr Metronidazole (Flagyl) 500 mg in 100 mls @ 100 mls/hr IVPB Q8 [facility]; Protocol Last Admin: 05/22/18 13:29 Dose: 100 mls/hr Ceftriaxone Sodium (Rocephin 1 Gram Ivpb) 1 gm in 100 mls @ 100 mls/hr IVPB DAILY [facility]; Protocol Last Admin: 05/22/18 09:41 Dose: 100 mls/hr Insulin Human Lispro (Humalog Med) 0 units SC ACHS [facility]; Protocol Last Admin: 05/21/18 21:20 Dose: Not Given Morphine Sulfate (Morphine) 1 mg IVP Q6H PRN PRN Reason: Pain, Mild (1-3) Morphine Sulfate (Morphine) 2 mg IVP Q6H PRN PRN Reason: Pain, moderate (4-7) Last Admin: 05/22/18 13:29 Dose: 2 mg Ondansetron HCl (Zofran Inj) 4 mg IVP Q6H PRN PRN Reason: Nausea/Vomiting Last Admin: 05/22/18 13:37 Dose: 4 mg Pantoprazole Sodium (Protonix Inj) 40 mg IVP DAILY [facility] Last Admin: 05/22/18 09:41 Dose: 40 mg Physical Exam - Constitutional Appears: Non-toxic, No Acute Distress, Chronically Ill - Head Exam Head Exam: ATRAUMATIC, NORMOCEPHALIC - Eye Exam Eye Exam: EOMI, PERRL Pupil Exam: NORMAL ACCOMODATION, PERRL - ENT Exam ENT Exam: Mucous Membranes Moist, Normal External Ear Exam, TM's Normal Bilaterally - Neck Exam Neck exam: Positive for: Full Rom, Normal Inspection - Respiratory Exam Respiratory Exam: Clear to Auscultation Bilateral, NORMAL BREATHING PATTERN. absent: Rales, Rhonchi, Wheezes - Cardiovascular Exam Cardiovascular Exam: REGULAR RHYTHM, RRR, +S1, +S2 - GI/Abdominal Exam GI & Abdominal Exam: Soft, Tenderness (LLQ). absent: Distended, Firm, Guarding - Extremities Exam Extremities exam: Positive for: full ROM, normal inspection - Neurological Exam Neurological exam: Altered, CN II-XII Intact, Oriented x3 - Psychiatric Exam Psychiatric exam: Normal Affect, Normal Mood - Skin Skin Exam: Normal Color Additional comments: As above. Results - Vital Signs Recent Vital Signs: Last Vital Signs Temp 99.2 F 05/22/18 15:20 Pulse 92 H 05/22/18 15:20 Resp 20 05/22/18 14:00 BP 141/92 H 05/22/18 15:20 Pulse Ox 98 05/22/18 15:20 - Labs Result Diagrams: 05/22/18 07:00 05/22/18 07:00 Labs: Laboratory Results - last 24 hr 05/21/18 05/22/18 05/22/18 20:47 07:00 07:00 WBC 10.7 RBC 4.05 Hgb 10.3 L Hct 32.6 L MCV 80.5 MCH 25.4 MCHC 31.6 RDW 14.7 H Plt Count 219 MPV 9.7 Sodium 138 Potassium 3.8 Chloride 102 Carbon Dioxide 27 Anion Gap 13 BUN 7 Creatinine 0.6 L Est GFR ( Amer) > 60 Est GFR (Non-Af Amer) > 60 POC Glucose (mg/dL) 165 H Random Glucose 159 H Calcium 8.5 Phosphorus 3.5 Magnesium 1.8 Total Bilirubin 0.9 AST 24 ALT 24 Alkaline Phosphatase 75 Total Protein 7.1 Albumin 3.8 Globulin 3.3 Albumin/Globulin Ratio 1.2 Assessment & Plan - Assessment and Plan (Free Text) Assessment: 57 yo female with nausea, vomiting, and abdominal pain again that she rates as a 10 out of 10. The patient is still without fevers or leukocytosis at this time. CT Imaging studies showing acute sigmoid diverticulitis. Supportive care. Switch on Zosyn. Patient with Hypertension, NIDDM, and history of diverticulitis. Surgical evaluation. Multiple visits for the same issues. Thank you for allowing me to participate in the care of the patient, we will follow with you.
[2018-05-22] MEDS: Insulin Lispro (humaLOG) MEDIUM Coverage SC SCH ×3 (19:36→22:00)
[2018-05-22] MEDS: Piperacillin/Tazobact 3.375 gm 100 ML IVPB SCH (22:25)
[2018-05-23] MEDS: Sodium Chloride 0.9% 1,000 ML IV SCH (01:28)
[2018-05-23] MEDS: Morphine 2 mg/ml ISec IVP PRN ×2 (01:28→15:50)
[2018-05-23] MEDS: metroNIDAZOLE IV 500 mg/100 ml 500 MG/100 ML BAG IVPB SCH (05:15)
[2018-05-23] MEDS: Piperacillin/Tazobact 3.375 gm 100 ML IVPB SCH ×3 (06:07→22:17)
--- NOTE | 2018-05-23 07:36 | CARD ---
APPROVED REPORT Date of service: 05/21/2018 EKG Measurement Heart [id number] <Conclusion> Normal sinus rhythm NSSTW changes PRWP No change
--- NOTE | 2018-05-23 07:36 | CP.PCM.PN ---
Subjective - Date & Time of Evaluation Date of Evaluation: 05/23/18 Time of Evaluation: 07:33 - Subjective Subjective: Surgery: Dr. Joyce Patient reports feeling better. She is requesting something to drink. She denies n/v/f/c. Abdominal pain significantly improved. She reports passing flatus. Objective - Vital Signs/Intake and Output Vital Signs (last 24 hours): Temp Pulse Resp BP Pulse Ox 97.8 F 93 H 20 121/85 98 05/22/18 22:00 05/22/18 22:00 05/22/18 22:00 05/22/18 22:00 05/22/18 22:00 Intake and Output: 05/23/18 05/23/18 06:59 18:59 Intake Total 2520 Balance 2520 - Medications Medications: Current Medications Hydralazine HCl (Apresoline) 10 mg IVP Q6H PRN PRN Reason: Systolic Blood Pressure Hydromorphone HCl (Dilaudid) 0.5 mg IVP Q6H PRN PRN Reason: Pain, severe (8-10) Last Admin: 05/22/18 17:13 Dose: 0.5 mg Sodium Chloride (Sodium Chloride 0.9%) 1,000 mls @ 100 mls/hr IV .Q10H [facility] Last Admin: 05/23/18 01:28 Dose: 100 mls/hr Metronidazole (Flagyl) 500 mg in 100 mls @ 100 mls/hr IVPB Q8 [facility]; Protocol Last Admin: 05/23/18 05:15 Dose: 100 mls/hr Piperacillin Sod/Tazobactam Sod (Zosyn 3.375 In Ns 100ml) 100 mls @ 25 mls/hr IVPB Q8 [facility]; Protocol Last Admin: 05/23/18 06:07 Dose: 25 mls/hr Insulin Human Lispro (Humalog Med) 0 units SC ACHS [facility]; Protocol Last Admin: 05/22/18 22:00 Dose: Not Given Morphine Sulfate (Morphine) 1 mg IVP Q6H PRN PRN Reason: Pain, Mild (1-3) Morphine Sulfate (Morphine) 2 mg IVP Q6H PRN PRN Reason: Pain, moderate (4-7) Last Admin: 05/23/18 01:28 Dose: 2 mg Ondansetron HCl (Zofran Inj) 4 mg IVP Q6H PRN PRN Reason: Nausea/Vomiting Last Admin: 05/22/18 13:37 Dose: 4 mg Pantoprazole Sodium (Protonix Inj) 40 mg IVP DAILY [facility] Last Admin: 05/22/18 09:41 Dose: 40 mg - Labs Labs: 05/22/18 07:00 05/22/18 07:00 PT 12.5 SECONDS (9.4-12.5) 05/21/18 15:03 INR 1.09 05/21/18 15:03 APTT 29.1 Seconds (25.1-36.5) 05/21/18 15:03 - Constitutional Appears: Non-toxic, No Acute Distress - Head Exam Head Exam: ATRAUMATIC, NORMOCEPHALIC - Eye Exam Eye Exam: EOMI, Normal appearance - ENT Exam ENT Exam: Mucous Membranes Moist - Respiratory Exam Respiratory Exam: NORMAL BREATHING PATTERN. absent: Respiratory Distress - Cardiovascular Exam Cardiovascular Exam: REGULAR RHYTHM. absent: Tachycardia - GI/Abdominal Exam GI & Abdominal Exam: Soft. absent: Distended, Guarding, Tenderness, Rebound - Neurological Exam Neurological Exam: Alert, Awake - Psychiatric Exam Psychiatric exam: Normal Affect, Normal Mood - Skin Skin Exam: Dry, Warm Assessment and Plan - Assessment and Plan (Free Text) Assessment: 57 y/o F with recurrent diverticulitis Plan: -offered sigmoidectomy however patient will most likely require temporary ostomy and patient is unsure if she would like to move forward at this time -requests surgery team to speak with regarding plan for OR -ok for sips and ice chips, possible CLD -cont abx -if patient agrees will plan for OR this admission -further recs per Dr. Isiah [place] PGY4
[2018-05-23 07:48] LABS: HEMOGLOBIN 9.5 g/dL (12.0-16.0); MEAN CELL VOLUME 80.4 fl (80.0-105.0); MEAN CORPUSCULAR HEMOGLOBIN 25.1 pg (25.0-35.0); MEAN CORPUSCULAR HGB CONC 31.3 g/dl (31.0-37.0); MEAN PLATELET VOLUME 9.6 fl (7.0-11.0); RBC 3.78 10^6/uL (3.5-6.1); RED CELL DISTRIBUTION WIDTH 14.7 % (11.5-14.5); WHITE BLOOD COUNT 8.7 10^3/uL (4.5-11.0)
[2018-05-23 08:07] LABS: ALBUMIN 3.3 g/dL (3.0-4.8); ALT/SGPT 25 U/L (7-56); AST/SGOT 17 U/L (14-36); BLOOD UREA NITROGEN 6 mg/dL (7-21); CALCIUM 8.3 mg/dL (8.4-10.5); GFR NON-AFRICAN AMERICAN > 60
[2018-05-23] MEDS ORDERED: Peg-Electrolyte Oral Soln 4L (Golytely) PO ONE (09:09)
--- NOTE | 2018-05-23 09:12 | CP.PCM.PN ---
<Dru Quintero L - Last Filed: 05/23/18 14:44> Subjective - Date & Time of Evaluation Date of Evaluation: 05/23/18 Time of Evaluation: 07:30 - Subjective Subjective: Resident Progress Note for Hospitalist Service Patient examined at bedside. No acute events overnight. Patient reports pain is well managed, rates severity level +2/10. No bowel movements overnight. Patient expresses understanding on risks and benefits of surgical intervention and is agreeable to surgery tomorrow. Denies fevers, chills, chest pain, shortness of breath. Objective - Vital Signs/Intake and Output Vital Signs (last 24 hours): Temp Pulse Resp BP Pulse Ox 97.8 F 93 H 20 121/85 98 05/22/18 22:00 05/22/18 22:00 05/22/18 22:00 05/22/18 22:00 05/22/18 22:00 Intake and Output: 05/23/18 05/23/18 06:59 18:59 Intake Total 2520 Balance 2520 - Medications Medications: Current Medications Hydralazine HCl (Apresoline) 10 mg IVP Q6H PRN PRN Reason: Systolic Blood Pressure Hydromorphone HCl (Dilaudid) 0.5 mg IVP Q6H PRN PRN Reason: Pain, severe (8-10) Last Admin: 05/22/18 17:13 Dose: 0.5 mg Sodium Chloride (Sodium Chloride 0.9%) 1,000 mls @ 100 mls/hr IV .Q10H [facility] Last Admin: 05/23/18 01:28 Dose: 100 mls/hr Metronidazole (Flagyl) 500 mg in 100 mls @ 100 mls/hr IVPB Q8 [facility]; Protocol Last Admin: 05/23/18 05:15 Dose: 100 mls/hr Piperacillin Sod/Tazobactam Sod (Zosyn 3.375 In Ns 100ml) 100 mls @ 25 mls/hr IVPB Q8 [facility]; Protocol Last Admin: 05/23/18 06:07 Dose: 25 mls/hr Insulin Human Lispro (Humalog Med) 0 units SC ACHS [facility]; Protocol Last Admin: 05/22/18 22:00 Dose: Not Given Morphine Sulfate (Morphine) 1 mg IVP Q6H PRN PRN Reason: Pain, Mild (1-3) Morphine Sulfate (Morphine) 2 mg IVP Q6H PRN PRN Reason: Pain, moderate (4-7) Last Admin: 05/23/18 01:28 Dose: 2 mg Ondansetron HCl (Zofran Inj) 4 mg IVP Q6H PRN PRN Reason: Nausea/Vomiting Last Admin: 05/22/18 13:37 Dose: 4 mg Pantoprazole Sodium (Protonix Inj) 40 mg IVP DAILY [facility] Last Admin: 05/22/18 09:41 Dose: 40 mg - Labs Labs: 05/23/18 07:30 05/23/18 07:30 PT 12.5 SECONDS (9.4-12.5) 05/21/18 15:03 INR 1.09 05/21/18 15:03 APTT 29.1 Seconds (25.1-36.5) 05/21/18 15:03 - Additional Findings Additional findings: - Constitutional Appears: Non-toxic, No Acute Distress - Head Exam Head Exam: ATRAUMATIC, NORMOCEPHALIC - Eye Exam Eye Exam: EOMI, Normal appearance - ENT Exam ENT Exam: Mucous Membranes Dry - Neck Exam Neck exam: Positive for: Normal Inspection. Negative for: Lymphadenopathy, Tenderness, Thyromegaly - Respiratory Exam Respiratory Exam: Clear to Auscultation Bilateral, NORMAL BREATHING PATTERN. - Cardiovascular Exam Cardiovascular Exam: REGULAR RHYTHM, +S1, +S2 - GI/Abdominal Exam GI & Abdominal Exam: Hypoactive Bowel Sounds, Soft. absent: Distended, Firm, Rigid, Tenderness - Extremities Exam Extremities exam: Positive for: full ROM, normal capillary refill, normal inspection, pedal pulses present. - Neurological Exam Neurological exam: Alert, Oriented x3 - Psychiatric Exam Psychiatric exam: Normal Affect, Normal Mood - Skin Skin Exam: Dry, Intact, Normal Color, Warm Assessment and Plan - Assessment and Plan (Free Text) Assessment: Patient is a 57 year old female with past medical history of HTN, DM2, recurrent diverticulitis presenting with chief complaint of abdominal pain that began this morning and was found to have sigmoid diverticulitis on CT scan. Plan: Diverticulitis - plan for surgery tomorrow - CT abdomen shows acute diverticulitis involving sigmoid colon - Colonoscopy from 02/2018 showed diverticula in sigmoid colon, descending colon. Hemorrhoids. - Endoscopy from 02/2018 showed normal esophagus, mild inflammation in gastric fundus, single 3 mm polyp in stomach, normal duodenal bulb - afebrile, no leukocytosis - UA unremarkable - Zosyn IV Q8 as per ID recs - Morphine and dilaudid for pain management - Zofran 4 mg IV Q6H PRN - LR 125 ccs/hr - NPO after midnight for surgery - GI consulted. Recs appreciated. - Surgery consulted. Recs appreciated. HTN - Hydralazine 10 mg IV Q6H PRN T2DM - Accuchecks ACHS - ISS DVT/GI PPX - Protonix 40 mg IV daily - SCDs Patient seen with attending Dr. Ruddy Quintero PGY-1 <Chrystal Fox - Last Filed: 05/28/18 11:46> Objective - Vital Signs/Intake and Output Vital Signs (last 24 hours): Temp Pulse Resp BP Pulse Ox 98 F 61 20 127/81 100 05/28/18 07:00 05/28/18 07:00 05/28/18 07:00 05/28/18 07:00 05/28/18 07:00 Intake and Output: 05/28/18 05/28/18 06:59 18:59 Intake Total 620 Balance 620 - Medications Medications: Current Medications Acetaminophen (Tylenol 325mg Tab) 650 mg PO Q6H PRN PRN Reason: Pain, Mild (1-3) Last Admin: 05/25/18 16:12 Dose: 650 mg Enoxaparin Sodium (Lovenox) 40 mg SC DAILY [facility]; Protocol Last Admin: 05/28/18 09:14 Dose: 40 mg Hydralazine HCl (Apresoline) 10 mg IVP Q6H PRN PRN Reason: Systolic Blood Pressure Potassium Chloride/Dextrose/Sod Cl (Potassium Chl 20 Meq In D5-1/2ns) 1,000 mls @ 60 mls/hr IV .[id number] [facility] Insulin Human Lispro (Humalog Med) 0 units SC [facility]; Protocol Last Admin: 05/28/18 08:00 Dose: Not Given Ondansetron HCl (Zofran Inj) 4 mg IVP Q6H PRN PRN Reason: Nausea/Vomiting Last Admin: 05/23/18 15:49 Dose: 4 mg Oxycodone/Acetaminophen (Percocet 5/325 Mg Tab) 1 tab PO Q4H PRN PRN Reason: Pain, moderate (4-7) Stop: 05/29/18 16:36 Last Admin: 05/28/18 09:51 Dose: 1 tab Pantoprazole Sodium (Protonix Inj) 40 mg IVP DAILY [facility] Last Admin: 05/28/18 09:15 Dose: 40 mg - Labs Labs: 05/28/18 05:30 05/28/18 05:30 PT 16.0 SECONDS (9.4-12.5) H 05/24/18 06:15 INR 1.38 05/24/18 06:15 APTT 29.1 Seconds (25.1-36.5) 05/24/18 06:15 Attending/Attestation - Attestation I have personally seen and examined this patient.: Yes I have fully participated in the care of the patient.: Yes I have reviewed all pertinent clinical information, including history, physical exam and plan: Yes Notes (Text): 05/28/18 11:46 Medical record note made by the resident after discussion with my direction and input after the patient was personally seen and examined by me. I have reviewed the chart and agree that the record accurately reflects by personal performance of the history, physical exam, data review, and medical decision-making, in the course for the patient. I have also personally directed the plan of care.
--- NOTE | 2018-05-23 09:34 | CP.PCM.PN ---
<RobDaylin - Last Filed: 05/23/18 09:36> Subjective - Date & Time of Evaluation Date of Evaluation: 05/23/18 Time of Evaluation: 09:32 - Subjective Subjective: Gastroenterology Fellow/PGY6 Progress Note Patient notes improving left lower abdominal pain, pain scale 4 out of 10. Tolerating clear liquid diet. No bowel movement today. A 12-point review of systems negative except for as above. Objective - Vital Signs/Intake and Output Vital Signs (last 24 hours): Temp Pulse Resp BP Pulse Ox 97.8 F 92 H 18 106/67 100 05/23/18 06:00 05/23/18 06:00 05/23/18 06:00 05/23/18 06:00 05/23/18 06:00 Intake and Output: 05/23/18 05/23/18 06:59 18:59 Intake Total 2520 Balance 2520 - Medications Medications: Current Medications Hydralazine HCl (Apresoline) 10 mg IVP Q6H PRN PRN Reason: Systolic Blood Pressure Hydromorphone HCl (Dilaudid) 0.5 mg IVP Q6H PRN PRN Reason: Pain, severe (8-10) Last Admin: 05/22/18 17:13 Dose: 0.5 mg Metronidazole (Flagyl) 500 mg in 100 mls @ 100 mls/hr IVPB Q8 [facility]; Protocol Last Admin: 05/23/18 05:15 Dose: 100 mls/hr Piperacillin Sod/Tazobactam Sod (Zosyn 3.375 In Ns 100ml) 100 mls @ 25 mls/hr IVPB Q8 [facility]; Protocol Last Admin: 05/23/18 06:07 Dose: 25 mls/hr Potassium Chloride (Potassium Chloride 20 Meq/100 Ml) 20 meq in 100 mls @ 50 mls/hr IVPB Q2H [facility] Stop: 05/23/18 13:14 Lactated Ringer's (Lactated Ringer's) 1,000 mls @ 125 mls/hr IV .Q8H [facility] Insulin Human Lispro (Humalog Med) 0 units SC ACHS [facility]; Protocol Last Admin: 05/22/18 22:00 Dose: Not Given Morphine Sulfate (Morphine) 1 mg IVP Q6H PRN PRN Reason: Pain, Mild (1-3) Morphine Sulfate (Morphine) 2 mg IVP Q6H PRN PRN Reason: Pain, moderate (4-7) Last Admin: 05/23/18 01:28 Dose: 2 mg Neomycin Sulfate (Neomycin Tab) 1,000 mg PO ONCE ONE Stop: 05/23/18 15:01 Neomycin Sulfate (Neomycin Tab) 1,000 mg PO ONCE ONE Stop: 05/23/18 16:01 Neomycin Sulfate (Neomycin Tab) 1,000 mg PO ONCE ONE Stop: 05/24/18 01:01 Ondansetron HCl (Zofran Inj) 4 mg IVP Q6H PRN PRN Reason: Nausea/Vomiting Last Admin: 05/22/18 13:37 Dose: 4 mg Pantoprazole Sodium (Protonix Inj) 40 mg IVP DAILY [facility] Last Admin: 05/22/18 09:41 Dose: 40 mg - Labs Labs: 05/23/18 07:30 05/23/18 07:30 PT 12.5 SECONDS (9.4-12.5) 05/21/18 15:03 INR 1.09 05/21/18 15:03 APTT 29.1 Seconds (25.1-36.5) 05/21/18 15:03 - Constitutional Appears: Non-toxic, No Acute Distress - Head Exam Head Exam: ATRAUMATIC, NORMOCEPHALIC - Eye Exam Eye Exam: EOMI, PERRL. absent: Scleral icterus Pupil Exam: PERRL. absent: Miosis, Mydriatic - ENT Exam ENT Exam: Mucous Membranes Moist, Normal Oropharynx - Neck Exam Neck Exam: Full ROM, Normal Inspection - Respiratory Exam Respiratory Exam: Clear to Ausculation Bilateral. absent: Rales, Rhonchi, Wheezes - Cardiovascular Exam Cardiovascular Exam: RRR, +S1, +S2. absent: Gallop, Rubs - GI/Abdominal Exam GI & Abdominal Exam: Soft, Normal Bowel Sounds. absent: Distended, Firm, Guarding, Rigid, Tenderness, Organomegaly, Rebound - Extremities Exam Extremities Exam: Normal Inspection, Pedal Edema - Neurological Exam Neurological Exam: Alert, Awake - Psychiatric Exam Psychiatric exam: Normal Affect, Normal Mood - Skin Skin Exam: Dry, Intact, Normal Color, Warm Assessment and Plan - Assessment and Plan (Free Text) Assessment: 57 year old female with PMH of recurrent diverticulitis in the last year (August, October,March 2018), HTN, and Diabetes presenting with abdominal pain. Active treatment of uncomplicated sigmoid diverticulitis on CT A/P. Prior EGD/colonoscopy 02/2018 showed H. pylori negative gastritis, single 3mm hype rplastic polyps, and descending/sigmoid diverticulosis, and Grade II internal/external hemorrhoids. Plan: -clinically improving -on Zosyn and Flagyl -supportive care- IVFs, pain control, anti-emetics -family discussion planned with surgical team to discuss possible sigmoidectomy -surgery managing- follow up recommendations -will benefit from GI follow up on discharge -Thank you for opportunity to participate in the care of this patient <Juan Mojica - Last Filed: 05/23/18 10:01> Objective - Vital Signs/Intake and Output Vital Signs (last 24 hours): Temp Pulse Resp BP Pulse Ox 97.8 F 92 H 18 106/67 100 05/23/18 06:00 05/23/18 06:00 05/23/18 06:00 05/23/18 06:00 05/23/18 06:00 Intake and Output: 05/23/18 05/23/18 06:59 18:59 Intake Total 2520 Balance 2520 - Medications Medications: Current Medications Hydralazine HCl (Apresoline) 10 mg IVP Q6H PRN PRN Reason: Systolic Blood Pressure Hydromorphone HCl (Dilaudid) 0.5 mg IVP Q6H PRN PRN Reason: Pain, severe (8-10) Last Admin: 05/22/18 17:13 Dose: 0.5 mg Metronidazole (Flagyl) 500 mg in 100 mls @ 100 mls/hr IVPB Q8 [facility]; Protocol Last Admin: 05/23/18 05:15 Dose: 100 mls/hr Piperacillin Sod/Tazobactam Sod (Zosyn 3.375 In Ns 100ml) 100 mls @ 25 mls/hr IVPB Q8 [facility]; Protocol Last Admin: 05/23/18 06:07 Dose: 25 mls/hr Potassium Chloride (Potassium Chloride 20 Meq/100 Ml) 20 meq in 100 mls @ 50 mls/hr IVPB Q2H [facility] Stop: 05/23/18 13:14 Lactated Ringer's (Lactated Ringer's) 1,000 mls @ 125 mls/hr IV .Q8H [facility] Insulin Human Lispro (Humalog Med) 0 units SC ACHS [facility]; Protocol Last Admin: 05/22/18 22:00 Dose: Not Given Morphine Sulfate (Morphine) 1 mg IVP Q6H PRN PRN Reason: Pain, Mild (1-3) Morphine Sulfate (Morphine) 2 mg IVP Q6H PRN PRN Reason: Pain, moderate (4-7) Last Admin: 05/23/18 01:28 Dose: 2 mg Neomycin Sulfate (Neomycin Tab) 1,000 mg PO ONCE ONE Stop: 05/23/18 15:01 Neomycin Sulfate (Neomycin Tab) 1,000 mg PO ONCE ONE Stop: 05/23/18 16:01 Neomycin Sulfate (Neomycin Tab) 1,000 mg PO ONCE ONE Stop: 05/24/18 01:01 Ondansetron HCl (Zofran Inj) 4 mg IVP Q6H PRN PRN Reason: Nausea/Vomiting Last Admin: 05/22/18 13:37 Dose: 4 mg Pantoprazole Sodium (Protonix Inj) 40 mg IVP DAILY [facility] Last Admin: 05/22/18 09:41 Dose: 40 mg - Labs Labs: 05/23/18 07:30 05/23/18 07:30 PT 12.5 SECONDS (9.4-12.5) 05/21/18 15:03 INR 1.09 05/21/18 15:03 APTT 29.1 Seconds (25.1-36.5) 05/21/18 15:03 Attending/Attestation - Attestation I have fully participated in the care of the patient.: Yes I have reviewed all pertinent clinical information, including history, physical exam and plan: Yes Notes (Text): 05/23/18 09:59 HTN DM Abdominal pain - acute sigmoid diverticulitis - Continue with antibiotic therapy - Clear liquid diet as tolerated - Patient with recent colonoscopy in February showing hyperplastic polyps and diverticular disease - Follow up surgical recommendations for potential intervention given recurrent episodes of diverticulitis - No further planned GI intervention, will sign off case. Please reconsult as necessary, thank you.
[2018-05-23] MEDS: Lactated Ringer's 1,000 ML IV SCH (11:32)
[2018-05-23] MEDS: Insulin Lispro (humaLOG) MEDIUM Coverage SC SCH ×3 (11:34→22:29)
[2018-05-23] MEDS ORDERED: ERYthromycin Base 250 MG DR Cap PO ONE ×2 (15:00→16:00)
--- NOTE | 2018-05-23 17:38 | CP.PCM.PN ---
Subjective - Date & Time of Evaluation Date of Evaluation: 05/23/18 Time of Evaluation: 16:00 - Subjective Subjective: Infectious Disease Consultation: May 23, 2018 57 yo female with PMHx of Diverticulosis, HTN, and DM who presents again with left lower quadrant pain starting a day prior to admission. The patient states that the pain has progressively worsened throughout the day. 5th hospitalization this year for abdominal pain and diverticulosis/diverticulitis. Patient is currently on Ceftriaxone for antibiotic care. No additional issues. Patient with improvement in abdominal pain. Potential surgery tomorrow if patient accepts ostomy. Objective - Vital Signs/Intake and Output Vital Signs (last 24 hours): Temp Pulse Resp BP Pulse Ox 97.4 F L 66 18 123/89 99 05/23/18 14:00 05/23/18 14:00 05/23/18 14:00 05/23/18 14:00 05/23/18 14:00 Intake and Output: 05/23/18 05/23/18 06:59 18:59 Intake Total 2520 Balance 2520 - Medications Medications: Current Medications Hydralazine HCl (Apresoline) 10 mg IVP Q6H PRN PRN Reason: Systolic Blood Pressure Hydromorphone HCl (Dilaudid) 0.5 mg IVP Q6H PRN PRN Reason: Pain, severe (8-10) Last Admin: 05/22/18 17:13 Dose: 0.5 mg Piperacillin Sod/Tazobactam Sod (Zosyn 3.375 In Ns 100ml) 100 mls @ 25 mls/hr IVPB Q8 [facility]; Protocol Last Admin: 05/23/18 06:07 Dose: 25 mls/hr Lactated Ringer's (Lactated Ringer's) 1,000 mls @ 125 mls/hr IV .Q8H [facility] Last Admin: 05/23/18 11:32 Dose: 125 mls/hr Insulin Human Lispro (Humalog Med) 0 units SC ACHS [facility]; Protocol Last Admin: 05/23/18 11:36 Dose: Not Given Morphine Sulfate (Morphine) 1 mg IVP Q6H PRN PRN Reason: Pain, Mild (1-3) Morphine Sulfate (Morphine) 2 mg IVP Q6H PRN PRN Reason: Pain, moderate (4-7) Last Admin: 05/23/18 15:50 Dose: 2 mg Neomycin Sulfate (Neomycin Tab) 1,000 mg PO ONCE ONE Stop: 05/24/18 01:01 Ondansetron HCl (Zofran Inj) 4 mg IVP Q6H PRN PRN Reason: Nausea/Vomiting Last Admin: 05/23/18 15:49 Dose: 4 mg Pantoprazole Sodium (Protonix Inj) 40 mg IVP DAILY [facility] Last Admin: 05/23/18 11:29 Dose: 40 mg - Labs Labs: 05/23/18 07:30 05/23/18 07:30 PT 12.5 SECONDS (9.4-12.5) 05/21/18 15:03 INR 1.09 05/21/18 15:03 APTT 29.1 Seconds (25.1-36.5) 05/21/18 15:03 - Constitutional Appears: Non-toxic, No Acute Distress, Chronically Ill - Head Exam Head Exam: ATRAUMATIC, NORMOCEPHALIC - Eye Exam Eye Exam: EOMI, PERRL Pupil Exam: NORMAL ACCOMODATION, PERRL - ENT Exam ENT Exam: Mucous Membranes Moist, Normal External Ear Exam, TM's Normal Bilaterally - Neck Exam Neck Exam: Full ROM, Normal Inspection - Respiratory Exam Respiratory Exam: Clear to Ausculation Bilateral, NORMAL BREATHING PATTERN. absent: Rales, Rhonchi, Wheezes - Cardiovascular Exam Cardiovascular Exam: REGULAR RHYTHM, RRR, +S1, +S2 - GI/Abdominal Exam GI & Abdominal Exam: Soft, Tenderness (LLQ), Normal Bowel Sounds. absent: Distended, Firm, Guarding - Extremities Exam Extremities Exam: Full ROM, Normal Inspection - Neurological Exam Neurological Exam: Alert, Awake, CN II-XII Intact, Oriented x3 - Skin Skin Exam: Normal Color Additional comments: As above. Assessment and Plan - Assessment and Plan (Free Text) Assessment: 57 yo female with nausea, vomiting, and abdominal pain again that she rates as a 10 out of 10. The patient is still without fevers or leukocytosis at this time. CT Imaging studies showing acute sigmoid diverticulitis. Supportive care. Switch to Zosyn. The patient is feeling better today with significant improv ement to abdominal pain. Patient with Hypertension, NIDDM, and history of diverticulitis. Surgical evaluation. Multiple visits for the same issues. Possible surgery tomorrow if patient accepts having an ostomy. Thank you for allowing me to participate in the care of the patient, we will follow with you.
[2018-05-24] MEDS ORDERED: ERYthromycin Base 250 MG DR Cap PO ONE (01:00)
[2018-05-24] MEDS: Lactated Ringer's 1,000 ML IV SCH ×2 (02:32→16:09)
[2018-05-24] MEDS: Piperacillin/Tazobact 3.375 gm 100 ML IVPB SCH ×3 (05:40→21:28)
--- NOTE | 2018-05-24 06:22 | CP.PCM.PN ---
<Dru Quintero L - Last Filed: 05/24/18 14:39> Subjective - Date & Time of Evaluation Date of Evaluation: 05/24/18 Time of Evaluation: 06:20 - Subjective Subjective: Resident Progress Note for Hospitalist Service Patient examined at bedside. No acute events overnight. Patient is s/p sigmoidectomy with colostomy. Patient is lethargic s/p procedure and unable to provide history but is moving all extremities and responds to painful stimuli. Objective - Vital Signs/Intake and Output Vital Signs (last 24 hours): Temp Pulse Resp BP Pulse Ox 98.6 F 87 18 136/93 H 98 05/23/18 23:13 05/23/18 23:13 05/23/18 23:13 05/23/18 23:13 05/23/18 23:13 Intake and Output: 05/23/18 05/24/18 18:59 06:59 Intake Total 500 Balance 500 - Medications Medications: Current Medications Hydralazine HCl (Apresoline) 10 mg IVP Q6H PRN PRN Reason: Systolic Blood Pressure Hydromorphone HCl (Dilaudid) 0.5 mg IVP Q6H PRN PRN Reason: Pain, severe (8-10) Last Admin: 05/22/18 17:13 Dose: 0.5 mg Piperacillin Sod/Tazobactam Sod (Zosyn 3.375 In Ns 100ml) 100 mls @ 25 mls/hr IVPB Q8 [facility]; Protocol Last Admin: 05/24/18 05:40 Dose: 25 mls/hr Lactated Ringer's (Lactated Ringer's) 1,000 mls @ 125 mls/hr IV .Q8H [facility] Last Admin: 05/24/18 02:32 Dose: 125 mls/hr Insulin Human Lispro (Humalog Med) 0 units SC ACHS [facility]; Protocol Last Admin: 05/23/18 22:29 Dose: Not Given Morphine Sulfate (Morphine) 1 mg IVP Q6H PRN PRN Reason: Pain, Mild (1-3) Morphine Sulfate (Morphine) 2 mg IVP Q6H PRN PRN Reason: Pain, moderate (4-7) Last Admin: 05/23/18 15:50 Dose: 2 mg Ondansetron HCl (Zofran Inj) 4 mg IVP Q6H PRN PRN Reason: Nausea/Vomiting Last Admin: 05/23/18 15:49 Dose: 4 mg Pantoprazole Sodium (Protonix Inj) 40 mg IVP DAILY [facility] Last Admin: 05/23/18 11:29 Dose: 40 mg - Labs Labs: 05/23/18 07:30 05/23/18 07:30 PT 12.5 SECONDS (9.4-12.5) 05/21/18 15:03 INR 1.09 05/21/18 15:03 APTT 29.1 Seconds (25.1-36.5) 05/21/18 15:03 - Additional Findings Additional findings: - Constitutional Appears: Non-toxic, No Acute Distress - Head Exam Head Exam: ATRAUMATIC, NORMOCEPHALIC - Eye Exam Eye Exam: EOMI, Normal appearance - ENT Exam ENT Exam: Mucous Membranes Dry - Neck Exam Neck exam: Positive for: Normal Inspection. Negative for: Lymphadenopathy, Tenderness, Thyromegaly - Respiratory Exam Respiratory Exam: Clear to Auscultation Bilateral, NORMAL BREATHING PATTERN. - Cardiovascular Exam Cardiovascular Exam: REGULAR RHYTHM, +S1, +S2 - GI/Abdominal Exam GI & Abdominal Exam: Hypoactive Bowel Sounds, Soft, Tenderness. absent: Distended, Firm Additional comments: colostomy bag intact with minimal drainage - Extremities Exam Extremities exam: Positive for: full ROM, normal capillary refill, normal inspection, pedal pulses present. - Neurological Exam Neurological exam: Lethargic - Skin Skin Exam: Dry, Intact, Normal Color, Warm Assessment and Plan - Assessment and Plan (Free Text) Assessment: Patient is a 57 year old female with past medical history of HTN, DM2, recurrent diverticulitis presenting with chief complaint of abdominal pain that began this morning and was found to have sigmoid diverticulitis on CT scan. Plan: Diverticulitis - s/p sigmoidectomy w/colostomy - CT abdomen shows acute diverticulitis involving sigmoid colon - Colonoscopy from 02/2018 showed diverticula in sigmoid colon, descending colon. Hemorrhoids. - Endoscopy from 02/2018 showed normal esophagus, mild inflammation in gastric fundus, single 3 mm polyp in stomach, normal duodenal bulb - afebrile, no leukocytosis - UA unremarkable - Zosyn IV Q8 as per ID recs - Morphine and dilaudid for pain management - Zofran 4 mg IV Q6H PRN - LR 125 ccs/hr - NPO dit - GI consulted. Recs appreciated. - Surgery consulted. Recs appreciated. HTN - Hydralazine 10 mg IV Q6H PRN T2DM - Accuchecks ACHS - ISS DVT/GI PPX - Protonix 40 mg IV daily - SCDs Case discussed with attending Dr. Ruddy Quintero PGY-1 <Chrystal Fox - Last Filed: 05/28/18 11:46> Objective - Vital Signs/Intake and Output Vital Signs (last 24 hours): Temp Pulse Resp BP Pulse Ox 98 F 61 20 127/81 100 05/28/18 07:00 05/28/18 07:00 05/28/18 07:00 05/28/18 07:00 05/28/18 07:00 Intake and Output: 05/28/18 05/28/18 06:59 18:59 Intake Total 620 Balance 620 - Medications Medications: Current Medications Acetaminophen (Tylenol 325mg Tab) 650 mg PO Q6H PRN PRN Reason: Pain, Mild (1-3) Last Admin: 05/25/18 16:12 Dose: 650 mg Enoxaparin Sodium (Lovenox) 40 mg SC DAILY [facility]; Protocol Last Admin: 05/28/18 09:14 Dose: 40 mg Hydralazine HCl (Apresoline) 10 mg IVP Q6H PRN PRN Reason: Systolic Blood Pressure Potassium Chloride/Dextrose/Sod Cl (Potassium Chl 20 Meq In D5-1/2ns) 1,000 mls @ 60 mls/hr IV .[id number] [facility] Insulin Human Lispro (Humalog Med) 0 units SC [facility]; Protocol Last Admin: 05/28/18 08:00 Dose: Not Given Ondansetron HCl (Zofran Inj) 4 mg IVP Q6H PRN PRN Reason: Nausea/Vomiting Last Admin: 05/23/18 15:49 Dose: 4 mg Oxycodone/Acetaminophen (Percocet 5/325 Mg Tab) 1 tab PO Q4H PRN PRN Reason: Pain, moderate (4-7) Stop: 05/29/18 16:36 Last Admin: 05/28/18 09:51 Dose: 1 tab Pantoprazole Sodium (Protonix Inj) 40 mg IVP DAILY [facility] Last Admin: 05/28/18 09:15 Dose: 40 mg - Labs Labs: 05/28/18 05:30 05/28/18 05:30 PT 16.0 SECONDS (9.4-12.5) H 05/24/18 06:15 INR 1.38 05/24/18 06:15 APTT 29.1 Seconds (25.1-36.5) 05/24/18 06:15 Attending/Attestation - Attestation I have personally seen and examined this patient.: Yes I have fully participated in the care of the patient.: Yes I have reviewed all pertinent clinical information, including history, physical exam and plan: Yes Notes (Text): 05/28/18 11:46 Medical record note made by the resident after discussion with my direction and input after the patient was personally seen and examined by me. I have reviewed the chart and agree that the record accurately reflects by personal performance of the history, physical exam, data review, and medical decision-making, in the course for the patient. I have also personally directed the plan of care.
[2018-05-24 06:52] LABS: INR 1.38; PARTIAL THROMBOPLASTIN TIME 29.1 Seconds (25.1-36.5)
[2018-05-24 06:56] LABS: ALBUMIN 3.7 g/dL (3.0-4.8); ALT/SGPT 22 U/L (7-56); AST/SGOT 19 U/L (14-36); BLOOD UREA NITROGEN 6 mg/dL (7-21); GFR NON-AFRICAN AMERICAN > 60
[2018-05-24 07:11] LABS: HEMOGLOBIN 9.9 g/dL (12.0-16.0); MEAN CELL VOLUME 80.4 fl (80.0-105.0); MEAN CORPUSCULAR HEMOGLOBIN 24.9 pg (25.0-35.0); MEAN PLATELET VOLUME 9.8 fl (7.0-11.0); RBC 3.97 10^6/uL (3.5-6.1); RED CELL DISTRIBUTION WIDTH 14.8 % (11.5-14.5); WHITE BLOOD COUNT 6.8 10^3/uL (4.5-11.0)
[2018-05-24] MEDS: Insulin Lispro (humaLOG) MEDIUM Coverage SC SCH ×4 (08:00→17:29)
[2018-05-24] MEDS ORDERED: Propofol 10 mg/ml Inj (20 ML) ONE (09:23)
[2018-05-24] MEDS ORDERED: Succinylcholine 200 mg/10 ml Inj IV ONE (09:23)
[2018-05-24] MEDS ORDERED: Rocuronium 10 mg/ml (5 ml) ONE ×2 (09:23→10:42)
[2018-05-24] MEDS ORDERED: Bupivacaine 0.5% 50 ML IJ ONE (09:37)
[2018-05-24] MEDS ORDERED: Neostigmine Methylsulfate 3mg/3ml Syringe IV ONE (11:33)
[2018-05-24] MEDS ORDERED: Liquid Adhesive TOP ONE (12:59)
[2018-05-24] MEDS ORDERED: HYDROmorphone 1 mg/ml PCA 30 ML IV PRN (13:18)
[2018-05-24] MEDS ORDERED: HYDROmorphone 0.5 mg/0.5 ml ISec IVP PRN ×3 (13:21→17:06)
--- NOTE | 2018-05-24 13:25 | PCM.SURG1 ---
Surgeon's Initial Post Op Note - Surgeon's Notes Surgeon: Dr. Joyce Rice Farmworker: Dr. Dewey PGY4, Dr. Albrecht PGY1 Type of Anesthesia: General Endo Pre-Operative Diagnosis: recurrent acute diverticulitis Operative Findings: markedly inflammed sigmoid colon Post-Operative Diagnosis: same Operation Performed: cystoscopy with bilateral ureteral stent placement. Amaury's Procedure with ventral hernia repair Specimen/Specimens Removed: sigmoid colon, hernia sac Estimated Blood Loss: EBL {In ML}: 100 (Urine output 400cc) Blood Products Given: N/A Drains Used: Ostomy Device Post-Op Condition: Good Date of Surgery/Procedure: 05/24/18 Time of Surgery/Procedure: 13:24
[2018-05-24] MEDS ORDERED: HYDROmorphone 0.5 mg/0.5 ml ISec ONE (14:18)
--- NOTE | 2018-05-24 17:44 | CP.PCM.PN ---
Subjective - Date & Time of Evaluation Date of Evaluation: 05/24/18 Time of Evaluation: 14:45 - Subjective Subjective: Infectious Disease Follow Up: May 24, 2018 57 yo female with PMHx of Diverticulosis, HTN, and DM who presents again with left lower quadrant pain starting a day prior to admission. The patient states that the pain has progressively worsened throughout the day. 5th hospitalization this year for abdominal pain and diverticulosis/diverticulitis. Patient is currently on Ceftriaxone for antibiotic care. No additional issues. Patient with improvement in abdominal pain. Leary procedure performed. Objective - Vital Signs/Intake and Output Vital Signs (last 24 hours): Temp Pulse Resp BP Pulse Ox 98.1 F 73 18 150/101 H 100 05/24/18 15:45 05/24/18 15:45 05/24/18 15:45 05/24/18 15:45 05/24/18 14:45 Intake and Output: 05/24/18 05/24/18 06:59 18:59 Intake Total 500 0 Balance 500 0 - Medications Medications: Current Medications Acetaminophen (Tylenol 325mg Tab) 650 mg PO Q6H PRN PRN Reason: Pain, Mild (1-3) Enoxaparin Sodium (Lovenox) 40 mg SC DAILY [facility]; Protocol Hydralazine HCl (Apresoline) 10 mg IVP Q6H PRN PRN Reason: Systolic Blood Pressure Hydromorphone HCl (Dilaudid) 0.5 mg IVP Q15M PRN PRN Reason: Other Last Admin: 05/24/18 14:15 Dose: 0.5 mg Hydromorphone HCl (Dilaudid) 0.5 mg IVP Q3H PRN PRN Reason: Pain, severe (8-10) Piperacillin Sod/Tazobactam Sod (Zosyn 3.375 In Ns 100ml) 100 mls @ 25 mls/hr IVPB Q8 [facility]; Protocol Last Admin: 05/24/18 15:27 Dose: 25 mls/hr Hydromorphone HCl (Dilaudid-Hp 1 Mg/Ml [employer]) 30 mls @ 0 mls/hr IV PRN PRN; 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 Last Admin: 05/24/18 15:45 Dose: 0.2 mls/hr Lactated Ringer's (Lactated Ringer's) 1,000 mls @ 100 mls/hr IV .Q10H [facility] Last Admin: 05/24/18 16:09 Dose: Not Given Insulin Human Lispro (Humalog Med) 0 units SC ACHS [facility]; Protocol Last Admin: 05/24/18 17:29 Dose: Not Given Ketorolac Tromethamine (Toradol) 30 mg IVP Q6H [facility] Stop: 05/25/18 11:16 Last Admin: 05/24/18 17:19 Dose: 30 mg Ondansetron HCl (Zofran Inj) 4 mg IVP Q6H PRN PRN Reason: Nausea/Vomiting Last Admin: 05/23/18 15:49 Dose: 4 mg Ondansetron HCl (Zofran Inj) 4 mg IVP ONCE PRN PRN Reason: Nausea/Vomiting Pantoprazole Sodium (Protonix Inj) 40 mg IVP DAILY [facility] Last Admin: 05/24/18 10:00 Dose: Not Given - Labs Labs: 05/24/18 06:15 05/24/18 06:15 PT 16.0 SECONDS (9.4-12.5) H 05/24/18 06:15 INR 1.38 05/24/18 06:15 APTT 29.1 Seconds (25.1-36.5) 05/24/18 06:15 - Constitutional Appears: Non-toxic, No Acute Distress, Chronically Ill - Head Exam Head Exam: ATRAUMATIC, NORMOCEPHALIC - Eye Exam Eye Exam: EOMI, PERRL Pupil Exam: NORMAL ACCOMODATION, PERRL - ENT Exam ENT Exam: Mucous Membranes Moist, Normal External Ear Exam, TM's Normal Bilaterally - Neck Exam Neck Exam: Full ROM, Normal Inspection - Respiratory Exam Respiratory Exam: Clear to Ausculation Bilateral, NORMAL BREATHING PATTERN. absent: Rales, Rhonchi, Wheezes - Cardiovascular Exam Cardiovascular Exam: REGULAR RHYTHM, RRR, +S1, +S2 - GI/Abdominal Exam GI & Abdominal Exam: Distended, Tenderness Additional comments: Heavily wrapped secondary to Leary procedure performed today. - Extremities Exam Extremities Exam: Full ROM, Normal Inspection - Neurological Exam Neurological Exam: Alert, Awake, CN II-XII Intact, Oriented x3 - Skin Skin Exam: Normal Color Additional comments: As above. Assessment and Plan - Assessment and Plan (Free Text) Assessment: 57 yo female with nausea, vomiting, and abdominal pain again that she rates as a 10 out of 10. The patient is still without fevers or leukocytosis at this time. CT Imaging studies showing acute sigmoid diverticulitis. Supportive care. Switch to Zosyn. The patient is feeling better today with significant improvement to abdominal pain. Patient with Hypertension, NIDDM, and history of diverticulitis. Surgical evaluation. Multiple visits for the same issues. Leary procedure performed today. Thank you for allowing me to participate in the care of the patient, we will follow with you.
--- NOTE | 2018-05-25 05:15 | OP ---
PROCEDURE DATE: 05/24/2018 PREOPERATIVE DIAGNOSIS: Diverticulitis. POSTOPERATIVE DIAGNOSIS: Diverticulitis. PROCEDURES: Cystoscopy, insertion of bilateral ureteral catheters. ATTENDING SURGEON: Vladislav Craig MD ANESTHESIA: General. SPECIMENS: None. DRAINS: 5-Syrian olive-tip ureteral catheters and an 18-Syrian Myrna Grey catheter. COMPLICATIONS: There were none. OPERATIVE FINDINGS: After informed consent was obtained by the surgical residents, the patient was taken to the operating room and placed on the operating table, and anesthesia was administered. The patient was placed in the dorsal lithotomy position, prepped and draped in the usual sterile fashion. A 21-Syrian cystoscope was passed in the patient's bladder, and a full survey inspection was performed. There were no stones, tumors, or foreign bodies of the bladder noted. Both ureteral orifices were visualized and appeared within normal limits. At this point, 5-Syrian olive-tip ureteral catheters were obtained. The ureteral catheters were passed through the cystoscope and placed into the right and left ureteral orifices respectively. The ureteral stents were then guided up the ureters until they were in at the appropriate depth. When both catheters were in the proper position, the bladder was drained. The cystoscope was removed while leaving the ureteral catheters in place. An 18-Syrian Myrna Grey catheter was then passed and placed to straight bladder drainage. The ureteral catheters were then secured to the Myrna Grey catheter. At this point, the urologic portion of the procedure was complete. The patient was returned to the supine position and left in the operating room under general anesthesia in order to undergo a sigmoid colon resection by Dr. Sean Joyce and the General Surgery team. Please refer to Dr. Joyce's dictation for the remainder of the operative report. Vladislav Craig MD
[2018-05-25] MEDS: Lactated Ringer's 1,000 ML IV SCH ×4 (05:59→20:02)
[2018-05-25] MEDS: Insulin Lispro (humaLOG) MEDIUM Coverage SC SCH ×4 (06:01→17:18)
[2018-05-25 06:41] LABS: ALBUMIN 3.1 g/dL (3.0-4.8); ALT/SGPT 29 U/L (7-56); AST/SGOT 19 U/L (14-36); BLOOD UREA NITROGEN 8 mg/dL (7-21); CALCIUM 8.2 mg/dL (8.4-10.5); GFR NON-AFRICAN AMERICAN > 60
[2018-05-25 07:06] LABS: BASO # 0.01 K/mm3 (0.0-2.0); BASO % 0.1 % (0.0-3.0); EOS # 0.2 (0.0-0.7); GRAN # 5.35 (1.4-6.5); GRAN % 70.3 % (50.0-68.0); HEMOGLOBIN 9.5 g/dL (12.0-16.0); LYMPH # 1.4 (1.2-3.4); LYMPH % 18.5 % (22.0-35.0); MEAN CELL VOLUME 80.7 fl (80.0-105.0); MEAN CORPUSCULAR HEMOGLOBIN 25.1 pg (25.0-35.0); MEAN PLATELET VOLUME 9.3 fl (7.0-11.0); MONO # 0.6 (0.1-0.6); MONO % 8.1 % (1.0-6.0); RBC 3.79 10^6/uL (3.5-6.1); RED CELL DISTRIBUTION WIDTH 14.7 % (11.5-14.5); WHITE BLOOD COUNT 7.6 10^3/uL (4.5-11.0)
[2018-05-25] MEDS: Piperacillin/Tazobact 3.375 gm 100 ML IVPB SCH (07:28)
[2018-05-25] MEDS ORDERED: Lactated Ringer's 1,000 ML IV SCH (09:00)
[2018-05-25] MEDS: Enoxaparin 40 mg Syringe SC SCH (09:11)
--- NOTE | 2018-05-25 09:34 | CP.PCM.PN ---
Subjective - Date & Time of Evaluation Date of Evaluation: 05/25/18 Time of Evaluation: 09:29 - Subjective Subjective: General Surgery Progress Note for Dr. Joyce 57F seen and evaluated at bedside this morning. No acute events overnight. UOP 200cc overnight, given a 1L bolus this morning. Abdominal pain controlled with BOTTOM MAN and PRN medication. No nausea or vomiting. Ostomy pink, no output at this time. Tolerating clears. Denies f/c, SOB, CP. Objective - Vital Signs/Intake and Output Vital Signs (last 24 hours): Temp Pulse Resp BP Pulse Ox 98.8 F 97 H 18 95/59 L 98 05/25/18 06:00 05/25/18 06:00 05/25/18 06:00 05/25/18 06:00 05/25/18 06:00 Intake and Output: 05/25/18 05/25/18 06:59 18:59 Intake Total 120 Output Total 1400 Balance -1280 - Medications Medications: Current Medications Acetaminophen (Tylenol 325mg Tab) 650 mg PO Q6H PRN PRN Reason: Pain, Mild (1-3) Enoxaparin Sodium (Lovenox) 40 mg SC DAILY [facility]; Protocol Last Admin: 05/25/18 09:11 Dose: 40 mg Hydralazine HCl (Apresoline) 10 mg IVP Q6H PRN PRN Reason: Systolic Blood Pressure Hydromorphone HCl (Dilaudid) 0.5 mg IVP Q15M PRN PRN Reason: Other Last Admin: 05/24/18 14:15 Dose: 0.5 mg Hydromorphone HCl (Dilaudid) 0.5 mg IVP Q3H PRN PRN Reason: Pain, severe (8-10) Piperacillin Sod/Tazobactam Sod (Zosyn 3.375 In Ns 100ml) 100 mls @ 25 mls/hr IVPB Q8 [facility]; Protocol Last Admin: 05/25/18 07:28 Dose: 25 mls/hr Hydromorphone HCl (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) 30 mls @ 0 mls/hr IV PRN PRN; P rotocol PRN Reason: BOTTOM MAN PER MD ORDER Last Admin: 05/24/18 15:45 Dose: 0.2 mls/hr Lactated Ringer's (Lactated Ringer's) 1,000 mls @ 100 mls/hr IV .Q10H [facility] Last Admin: 05/25/18 05:59 Dose: 100 mls/hr Lactated Ringer's (Lactated Ringer's) 1,000 mls @ 999 mls/hr IV .Q1H1M [facility] Stop: 05/25/18 10:00 Last Admin: 05/25/18 09:13 Dose: 999 mls/hr Insulin Human Lispro (Humalog Med) 0 units SC ACHS [facility]; Protocol Last Admin: 05/25/18 08:00 Dose: Not Given Ketorolac Tromethamine (Toradol) 30 mg IVP Q6H [facility] Stop: 05/25/18 11:16 Last Admin: 05/25/18 05:30 Dose: Not Given Ondansetron HCl (Zofran Inj) 4 mg IVP Q6H PRN PRN Reason: Nausea/Vomiting Last Admin: 05/23/18 15:49 Dose: 4 mg Ondansetron HCl (Zofran Inj) 4 mg IVP ONCE PRN PRN Reason: Nausea/Vomiting Pantoprazole Sodium (Protonix Inj) 40 mg IVP DAILY [facility] Last Admin: 05/25/18 09:11 Dose: 40 mg - Labs Labs: 05/25/18 05:40 05/25/18 05:40 PT 16.0 SECONDS (9.4-12.5) H 05/24/18 06:15 INR 1.38 05/24/18 06:15 APTT 29.1 Seconds (25.1-36.5) 05/24/18 06:15 - Constitutional Appears: Well, Non-toxic, No Acute Distress - Head Exam Head Exam: ATRAUMATIC, NORMAL INSPECTION, NORMOCEPHALIC - Eye Exam Eye Exam: EOMI - ENT Exam ENT Exam: Mucous Membranes Moist - Respiratory Exam Respiratory Exam: NORMAL BREATHING PATTERN - Cardiovascular Exam Cardiovascular Exam: REGULAR RHYTHM - GI/Abdominal Exam GI & Abdominal Exam: Soft, Tenderness, Normal Bowel Sounds. absent: Distended, Guarding Additional comments: ostomy pink, no output - Exam Additional comments: bauer in place - 200cc dark urine overnight - Neurological Exam Neurological Exam: Alert, Awake - Psychiatric Exam Psychiatric exam: Normal Affect, Normal Mood - Skin Additional comments: abdominal incision dressing c/d/i Assessment and Plan - Assessment and Plan (Free Text) Assessment: 57F w/ acute diverticulitis s/p Amaury's POD1 Plan: Tolerating CLD - will remain on clears for now Keep bauer - monitor urine output Continue IVF Continue BOTTOM MAN and PRN pain medications Antiemetics as needed Encourage IS use OOBTC and ambulation encouraged IV Abx per SCIP protocol Further recommendations per Dr. Isiah Galeana PGY1
[2018-05-25] MEDS ORDERED: Sodium Chloride 0.9% 1,000 ML IV STA (10:07)
[2018-05-25] MEDS ORDERED: Magnesium Sulfate 2 gm/50 ml 2 GM/50 ML BAG IVPB ONE (10:53)
[2018-05-25] MEDS ORDERED: HYDROmorphone 0.5 mg/0.5 ml ISec IVP PRN (12:05)
--- NOTE | 2018-05-25 12:34 | CP.PCM.PN ---
<IngridLaylakalin L - Last Filed: 05/25/18 14:04> Subjective - Date & Time of Evaluation Date of Evaluation: 05/25/18 Time of Evaluation: 07:30 - Subjective Subjective: Resident Progress Note for Hospitalist Service Patient examined at bedside. No acute events overnight. Patient is POD#1, offers no complaints at this time. Patient tolerated advancement to liquid diet. Denies fever, chills, nausea, vomiting, chest pain, shortness of breath. Objective - Vital Signs/Intake and Output Vital Signs (last 24 hours): Temp Pulse Resp BP Pulse Ox 98.8 F 97 H 18 95/59 L 98 05/25/18 06:00 05/25/18 06:00 05/25/18 06:00 05/25/18 06:00 05/25/18 06:00 Intake and Output: 05/25/18 05/25/18 06:59 18:59 Intake Total 120 Output Total 1400 Balance -1280 - Medications Medications: Current Medications Acetaminophen (Tylenol 325mg Tab) 650 mg PO Q6H PRN PRN Reason: Pain, Mild (1-3) Enoxaparin Sodium (Lovenox) 40 mg SC DAILY [facility]; Protocol Last Admin: 05/25/18 09:11 Dose: 40 mg Hydralazine HCl (Apresoline) 10 mg IVP Q6H PRN PRN Reason: Systolic Blood Pressure Hydromorphone HCl (Dilaudid) 0.5 mg IVP Q4H PRN PRN Reason: Pain, severe (8-10) Lactated Ringer's (Lactated Ringer's) 1,000 mls @ 130 mls/hr IV .Q7H42M [facility] Insulin Human Lispro (Humalog Med) 0 units SC ACHS [facility]; Protocol Last Admin: 05/25/18 08:00 Dose: Not Given Ketorolac Tromethamine (Toradol) 30 mg IVP Q6 [facility] Stop: 05/27/18 12:01 Ondansetron HCl (Zofran Inj) 4 mg IVP Q6H PRN PRN Reason: Nausea/Vomiting Last Admin: 05/23/18 15:49 Dose: 4 mg Pantoprazole Sodium (Protonix Inj) 40 mg IVP DAILY [facility] Last Admin: 05/25/18 09:11 Dose: 40 mg - Labs Labs: 05/25/18 05:40 11/28/18 05:40 PT 16.0 SECONDS (9.4-12.5) H 05/24/18 06:15 INR 1.38 05/24/18 06:15 APTT 29.1 Seconds (25.1-36.5) 05/24/18 06:15 - Additional Findings Additional findings: - Constitutional Appears: Non-toxic, No Acute Distress - Head Exam Head Exam: ATRAUMATIC, NORMOCEPHALIC - Eye Exam Eye Exam: EOMI, Normal appearance - ENT Exam ENT Exam: Mucous Membranes Dry - Neck Exam Neck exam: Positive for: Normal Inspection. Negative for: Lymphadenopathy, Tenderness, Thyromegaly - Respiratory Exam Respiratory Exam: Clear to Auscultation Bilateral, NORMAL BREATHING PATTERN. - Cardiovascular Exam Cardiovascular Exam: REGULAR RHYTHM, +S1, +S2 - GI/Abdominal Exam GI & Abdominal Exam: Hypoactive Bowel Sounds, Soft, Tenderness. absent: Distended, Firm Additional comments: colostomy bag intact with minimal drainage - Extremities Exam Extremities exam: Positive for: full ROM, normal capillary refill, normal inspection, pedal pulses present. - Neurological Exam Neurological exam: Lethargic - Skin Skin Exam: Dry, Intact, Normal Color, Warm Assessment and Plan - Assessment and Plan (Free Text) Assessment: Patient is a 57 year old female with past medical history of HTN, DM2, recurrent diverticulitis presenting with chief complaint of abdominal pain that began this morning and was found to have sigmoid diverticulitis on CT scan. Plan: Diverticulitis - s/p sigmoidectomy w/colostomy POD#1 - CT abdomen shows acute diverticulitis involving sigmoid colon - Colonoscopy from 02/2018 showed diverticula in sigmoid colon, descending colon. Hemorrhoids. - Endoscopy from 02/2018 showed normal esophagus, mild inflammation in gastric fundus, single 3 mm polyp in stomach, normal duodenal bulb - afebrile, no leukocytosis - UA unremarkable - Zosyn IV Q8 discontinued - Toradol for pain management - Zofran 4 mg IV Q6H PRN - LR 130 ccs/hr - Liquid diet, advance as tolerated - GI consulted. Recs appreciated. - Surgery consulted. Recs appreciated. HTN - Hydralazine 10 mg IV Q6H PRN T2DM - Accuchecks ACHS - ISS DVT/GI PPX - Protonix 40 mg IV daily - SCDs Case discussed with attending Dr. Ruddy Quintero PGY-1 <Chrystal Fox - Last Filed: 05/28/18 11:46> Objective - Vital Signs/Intake and Output Vital Signs (last 24 hours): Temp Pulse Resp BP Pulse Ox 98 F 61 20 127/81 100 05/28/18 07:00 05/28/18 07:00 05/28/18 07:00 05/28/18 07:00 05/28/18 07:00 Intake and Output: 05/28/18 05/28/18 06:59 18:59 Intake Total 620 Balance 620 - Medications Medications: Current Medications Acetaminophen (Tylenol 325mg Tab) 650 mg PO Q6H PRN PRN Reason: Pain, Mild (1-3) Last Admin: 05/25/18 16:12 Dose: 650 mg Enoxaparin Sodium (Lovenox) 40 mg SC DAILY [facility]; Protocol Last Admin: 05/28/18 09:14 Dose: 40 mg Hydralazine HCl (Apresoline) 10 mg IVP Q6H PRN PRN Reason: Systolic Blood Pressure Potassium Chloride/Dextrose/Sod Cl (Potassium Chl 20 Meq In D5-1/2ns) 1,000 mls @ 60 mls/hr IV .[id number] [facility] Insulin Human Lispro (Humalog Med) 0 units SC ACHS [facility]; Protocol Last Admin: 05/28/18 08:00 Dose: Not Given Ondansetron HCl (Zofran Inj) 4 mg IVP Q6H PRN PRN Reason: Nausea/Vomiting Last Admin: 05/23/18 15:49 Dose: 4 mg Oxycodone/Acetaminophen (Percocet 5/325 Mg Tab) 1 tab PO Q4H PRN PRN Reason: Pain, moderate (4-7) Stop: 05/29/18 16:36 Last Admin: 05/28/18 09:51 Dose: 1 tab Pantoprazole Sodium (Protonix Inj) 40 mg IVP DAILY [facility] Last Admin: 05/28/18 09:15 Dose: 40 mg - Labs Labs: 05/28/18 05:30 05/28/18 05:30 PT 16.0 SECONDS (9.4-12.5) H 05/24/18 06:15 INR 1.38 05/24/18 06:15 APTT 29.1 Seconds (25.1-36.5) 05/24/18 06:15 Attending/Attestation - Attestation I have personally seen and examined this patient.: Yes I have fully participated in the care of the patient.: Yes I have reviewed all pertinent clinical information, including history, physical exam and plan: Yes Notes (Text): 05/28/18 11:45 Medical record note made by the resident after discussion with my direction and input after the patient was personally seen and examined by me. I have reviewed the chart and agree that the record accurately reflects by personal performance of the history, physical exam, data review, and medical decision-making, in the course for the patient. I have also personally directed the plan of care.
[2018-05-25 14:32] LABS: ARTERIAL BLOOD GAS HCO3 23.2 mmol/L (21-28); ARTERIAL BLOOD GAS HEMOGLOBIN 9.3 g/dL (11.7-17.4); ARTERIAL BLOOD GAS O2 CAPACITY 12.9 mL/dl (16-24); ARTERIAL BLOOD GAS O2 CONTENT 12.8 ML/dl (15-23); ARTERIAL BLOOD GAS O2 SAT 99.5 % (95-98); ARTERIAL BLOOD GAS PCO2 42 mm/Hg (35-45); ARTERIAL BLOOD GAS PH 7.35 (7.35-7.45); ARTERIAL BLOOD GAS TCO2 24.5 mmol.L (22-28)
--- NOTE | 2018-05-25 17:09 | CP.PCM.PN ---
Subjective - Date & Time of Evaluation Date of Evaluation: 05/25/18 Time of Evaluation: 14:45 - Subjective Subjective: Infectious Disease Follow Up: May 25, 2018 57 yo female with PMHx of Diverticulosis, HTN, and DM who presents again with left lower quadrant pain starting a day prior to admission. The patient states that the pain has progressively worsened throughout the day. 5th hospitalization this year for abdominal pain and diverticulosis/diverticulitis. Patient is currently on Zosyn for antibiotic care. No additional issues. Patient with improvement in abdominal pain. Leary procedure performed. Objective - Vital Signs/Intake and Output Vital Signs (last 24 hours): Temp Pulse Resp BP Pulse Ox 99.2 F 94 H 18 125/78 96 05/25/18 14:00 05/25/18 14:00 05/25/18 14:00 05/25/18 14:00 05/25/18 14:00 Intake and Output: 05/25/18 05/25/18 06:59 18:59 Intake Total 120 Output Total 1400 Balance -1280 - Medications Medications: Current Medications Acetaminophen (Tylenol 325mg Tab) 650 mg PO Q6H PRN PRN Reason: Pain, Mild (1-3) Last Admin: 05/25/18 16:12 Dose: 650 mg Enoxaparin Sodium (Lovenox) 40 mg SC DAILY [facility]; Protocol Last Admin: 05/25/18 09:11 Dose: 40 mg Hydralazine HCl (Apresoline) 10 mg IVP Q6H PRN PRN Reason: Systolic Blood Pressure Hydromorphone HCl (Dilaudid) 0.5 mg IVP Q4H PRN PRN Reason: Pain, severe (8-10) Lactated Ringer's (Lactated Ringer's) 1,000 mls @ 130 mls/hr IV .Q7H42M [facility] Last Admin: 05/25/18 13:43 Dose: 130 mls/hr Insulin Human Lispro (Humalog Med) 0 units SC [facility]; Protocol Last Admin: 05/25/18 13:20 Dose: Not Given Ketorolac Tromethamine (Toradol) 30 mg IVP Q6 [facility] Stop: 05/27/18 12:01 Last Admin: 05/25/18 16:12 Dose: 30 mg Ondansetron HCl (Zofran Inj) 4 mg IVP Q6H PRN PRN Reason: Nausea/Vomiting Last Admin: 05/23/18 15:49 Dose: 4 mg Pantoprazole Sodium (Protonix Inj) 40 mg IVP DAILY [facility] Last Admin: 05/25/18 09:11 Dose: 40 mg - Labs Labs: 05/25/18 05:40 05/25/18 05:40 PT 16.0 SECONDS (9.4-12.5) H 05/24/18 06:15 INR 1.38 05/24/18 06:15 APTT 29.1 Seconds (25.1-36.5) 05/24/18 06:15 - Constitutional Appears: Non-toxic, No Acute Distress, Chronically Ill - Head Exam Head Exam: ATRAUMATIC, NORMOCEPHALIC - Eye Exam Eye Exam: EOMI, PERRL Pupil Exam: NORMAL ACCOMODATION, PERRL - ENT Exam ENT Exam: Mucous Membranes Moist, Normal External Ear Exam, TM's Normal Bilaterally - Neck Exam Neck Exam: Full ROM, Normal Inspection - Respiratory Exam Respiratory Exam: Clear to Ausculation Bilateral, NORMAL BREATHING PATTERN. absent: Rales, Rhonchi, Wheezes - Cardiovascular Exam Cardiovascular Exam: REGULAR RHYTHM, RRR, +S1, +S2 - GI/Abdominal Exam GI & Abdominal Exam: Soft, Normal Bowel Sounds. absent: Distended, Tenderness Additional comments: ostomy pink, no output. - Extremities Exam Extremities Exam: Full ROM, Normal Inspection - Neurological Exam Neurological Exam: Alert, Awake, CN II-XII Intact, Oriented x3 - Psychiatric Exam Psychiatric exam: Normal Affect, Normal Mood - Skin Skin Exam: Intact, Normal Color Additional comments: except abdominal incision dressing c/d/i Assessment and Plan - Assessment and Plan (Free Text) Assessment: 57 yo female with nausea, vomiting, and abdominal pain again that she rates as a 10 out of 10. The patient is still without fevers or leukocytosis at this time. CT Imaging studies showing acute sigmoid diverticulitis. Supportive care. Switch to Zosyn. The patient is feeling better today with significant improvement to abdominal pain. Surgery performed Leary procedure. If entire inflamed sigmoid colon/diverticulitis was removed, then stoppage of Zosyn is reasonable under [facility]IP protocols for improved surgical outcomes. If the bowel was noted to have other areas of inflamation, Zosyn should still be continued. Patient with Hypertension, NIDDM, and history of diverticulitis. Surgical evaluation. Multiple visits for the same issues. Leary procedure performed today. Thank you for allowing me to participate in the care of the patient, we will follow with you.
[2018-05-26] MEDS: Insulin Lispro (humaLOG) MEDIUM Coverage SC SCH ×5 (04:00→21:58)
[2018-05-26] MEDS: Lactated Ringer's 1,000 ML IV SCH (04:04)
[2018-05-26 06:48] LABS: BLOOD UREA NITROGEN 7 mg/dL (7-21); CALCIUM 8.1 mg/dL (8.4-10.5); GFR NON-AFRICAN AMERICAN > 60
[2018-05-26 06:55] LABS: HEMOGLOBIN 8.7 g/dL (12.0-16.0); MEAN CELL VOLUME 81.4 fl (80.0-105.0); MEAN CORPUSCULAR HEMOGLOBIN 25.2 pg (25.0-35.0); MEAN PLATELET VOLUME 9.1 fl (7.0-11.0); RBC 3.45 10^6/uL (3.5-6.1); RED CELL DISTRIBUTION WIDTH 15.1 % (11.5-14.5); WHITE BLOOD COUNT 6.8 10^3/uL (4.5-11.0)
--- NOTE | 2018-05-26 07:11 | CP.PCM.PN ---
<Dru Quintero L - Last Filed: 05/26/18 13:24> Subjective - Date & Time of Evaluation Date of Evaluation: 05/26/18 Time of Evaluation: 07:11 - Subjective Subjective: Resident Progress Note for Hospitalist Service Patient is out of bed to chair. No acute events overnight. Patient is s/p sigmoidectomy w/colostomy POD#2. Patient states her abdominal pain is well managed and that she tolerated her liquid diet. Denies fever, chills, nausea, vomiting. Objective - Vital Signs/Intake and Output Vital Signs (last 24 hours): Temp Pulse Resp BP Pulse Ox 99.7 F H 90 16 108/69 97 05/25/18 22:58 05/25/18 22:58 05/25/18 22:58 05/25/18 22:58 05/25/18 22:58 Intake and Output: 05/26/18 05/26/18 06:59 18:59 Intake Total 280 Output Total 1400 Balance -1120 - Medications Medications: Current Medications Acetaminophen (Tylenol 325mg Tab) 650 mg PO Q6H PRN PRN Reason: Pain, Mild (1-3) Last Admin: 05/25/18 16:12 Dose: 650 mg Enoxaparin Sodium (Lovenox) 40 mg SC DAILY [facility]; Protocol Last Admin: 05/25/18 09:11 Dose: 40 mg Hydralazine HCl (Apresoline) 10 mg IVP Q6H PRN PRN Reason: Systolic Blood Pressure Hydromorphone HCl (Dilaudid) 0.5 mg IVP Q4H PRN PRN Reason: Pain, severe (8-10) Potassium Chloride/Dextrose/Sod Cl (Potassium Chl 20 Meq In D5-1/2ns) 1,000 mls @ 130 mls/hr IV .Q7H42M [facility] Insulin Human Lispro (Humalog Med) 0 units SC [facility]; Protocol Last Admin: 05/26/18 04:00 Dose: Not Given Ketorolac Tromethamine (Toradol) 30 mg IVP Q6 [facility] Stop: 05/27/18 12:01 Last Admin: 05/25/18 21:55 Dose: 30 mg Ondansetron HCl (Zofran Inj) 4 mg IVP Q6H PRN PRN Reason: Nausea/Vomiting Last Admin: 05/23/18 15:49 Dose: 4 mg Pantoprazole Sodium (Protonix Inj) 40 mg IVP DAILY [facility] Last Admin: 05/25/18 09:11 Dose: 40 mg - Labs Labs: 05/25/18 05:40 05/26/18 06:20 PT 16.0 SECONDS (9.4-12.5) H 05/24/18 06:15 INR 1.38 05/24/18 06:15 APTT 29.1 Seconds (25.1-36.5) 05/24/18 06:15 - Additional Findings Additional findings: - Constitutional Appears: Non-toxic, No Acute Distress - Head Exam Head Exam: ATRAUMATIC, NORMOCEPHALIC - Eye Exam Eye Exam: EOMI, Normal appearance - ENT Exam ENT Exam: Mucous Membranes Moist - Neck Exam Neck exam: Positive for: Normal Inspection. Negative for: Lymphadenopathy, Tenderness, Thyromegaly - Respiratory Exam Respiratory Exam: Clear to Auscultation Bilateral, NORMAL BREATHING PATTERN. - Cardiovascular Exam Cardiovascular Exam: REGULAR RHYTHM, +S1, +S2 - GI/Abdominal Exam GI & Abdominal Exam: Hypoactive Bowel Sounds, Soft. absent: Distended, Firm, Tenderness Additional comments: colostomy bag intact with minimal drainage - Extremities Exam Extremities exam: Positive for: full ROM, normal capillary refill, normal inspection, pedal pulses present. - Neurological Exam Neurological exam: Alert, Oriented x3 - Skin Skin Exam: Dry, Intact, Normal Color, Warm Assessment and Plan - Assessment and Plan (Free Text) Assessment: Patient is a 57 year old female with past medical history of HTN, DM2, recurrent diverticulitis presenting with chief complaint of abdominal pain that began this morning and was found to have sigmoid diverticulitis on CT scan now s/p sigmoidectomy with colostomy. Plan: Diverticulitis - s/p sigmoidectomy w/colostomy POD#1 - CT abdomen shows acute diverticulitis involving sigmoid colon - Colonoscopy from 02/2018 showed diverticula in sigmoid colon, descending colon. Hemorrhoids. - Endoscopy from 02/2018 showed normal esophagus, mild inflammation in gastric fundus, single 3 mm polyp in stomach, normal duodenal bulb - afebrile, no leukocytosis - Toradol 30 mg IV Q6 - Zofran 4 mg IV Q6H PRN - Liquid diet, advance as tolerated - GI consulted. Recs appreciated. - Surgery consulted. Recs appreciated. HTN - Hydralazine 10 mg IV Q6H PRN T2DM - Accuchecks ACHS - ISS DVT/GI PPX - Protonix 40 mg IV daily - Lovenox 40 mg SC daily Case discussed with attending Dr. Ruddy Quintero PGY-1 <Chrystal Fox - Last Filed: 05/28/18 11:45> Objective - Vital Signs/Intake and Output Vital Signs (last 24 hours): Temp Pulse Resp BP Pulse Ox 98 F 61 20 127/81 100 05/28/18 07:00 05/28/18 07:00 05/28/18 07:00 05/28/18 07:00 05/28/18 07:00 Intake and Output: 05/28/18 05/28/18 06:59 18:59 Intake Total 620 Balance 620 - Medications Medications: Current Medications Acetaminophen (Tylenol 325mg Tab) 650 mg PO Q6H PRN PRN Reason: Pain, Mild (1-3) Last Admin: 05/25/18 16:12 Dose: 650 mg Enoxaparin Sodium (Lovenox) 40 mg SC DAILY [facility]; Protocol Last Admin: 05/28/18 09:14 Dose: 40 mg Hydralazine HCl (Apresoline) 10 mg IVP Q6H PRN PRN Reason: Systolic Blood Pressure Potassium Chloride/Dextrose/Sod Cl (Potassium Chl 20 Meq In D5-1/2ns) 1,000 mls @ 60 mls/hr IV .[id number] [facility] Insulin Human Lispro (Humalog Med) 0 units SC [facility]; Protocol Last Admin: 05/28/18 08:00 Dose: Not Given Ondansetron HCl (Zofran Inj) 4 mg IVP Q6H PRN PRN Reason: Nausea/Vomiting Last Admin: 05/23/18 15:49 Dose: 4 mg Oxycodone/Acetaminophen (Percocet 5/325 Mg Tab) 1 tab PO Q4H PRN PRN Reason: Pain, moderate (4-7) Stop: 05/29/18 16:36 Last Admin: 05/28/18 09:51 Dose: 1 tab Pantoprazole Sodium (Protonix Inj) 40 mg IVP DAILY [facility] Last Admin: 05/28/18 09:15 Dose: 40 mg - Labs Labs: 05/28/18 05:30 05/28/18 05:30 PT 16.0 SECONDS (9.4-12.5) H 05/24/18 06:15 INR 1.38 05/24/18 06:15 APTT 29.1 Seconds (25.1-36.5) 05/24/18 06:15 Attending/Attestation - Attestation I have personally seen and examined this patient.: Yes I have fully participated in the care of the patient.: Yes I have reviewed all pertinent clinical information, including history, physical exam and plan: Yes Notes (Text): 05/28/18 11:45 Medical record note made by the resident after discussion with my direction and input after the patient was personally seen and examined by me. I have reviewed the chart and agree that the record accurately reflects by personal performance of the history, physical exam, data review, and medical decision-making, in the course for the patient. I have also personally directed the plan of care.
--- NOTE | 2018-05-26 08:10 | CP.PCM.PN ---
Subjective - Date & Time of Evaluation Date of Evaluation: 05/26/18 Time of Evaluation: 08:08 - Subjective Subjective: Surgery Progress Note for Dr. Joyce Patient seen and examined at bedside this morning, currently s/p Amaury's POD2. She endorses appetite loss but has been able to tolerate her liquid diet without nausea and vomiting. Patient states she has been passing gas and the gas comes out as air from her colostomy bag. Some lower abdominal pain, but otherwise denies headaches, fevers, chills, night sweats. She would like assistance to get of bed. Objective - Vital Signs/Intake and Output Vital Signs (last 24 hours): Temp Pulse Resp BP Pulse Ox 99.7 F H 90 16 108/69 97 05/25/18 22:58 05/25/18 22:58 05/25/18 22:58 05/25/18 22:58 05/25/18 22:58 Intake and Output: 05/26/18 05/26/18 06:59 18:59 Intake Total 280 Output Total 1400 Balance -1120 - Medications Medications: Current Medications Acetaminophen (Tylenol 325mg Tab) 650 mg PO Q6H PRN PRN Reason: Pain, Mild (1-3) Last Admin: 05/25/18 16:12 Dose: 650 mg Enoxaparin Sodium (Lovenox) 40 mg SC DAILY [facility]; Protocol Last Admin: 05/25/18 09:11 Dose: 40 mg Hydralazine HCl (Apresoline) 10 mg IVP Q6H PRN PRN Reason: Systolic Blood Pressure Hydromorphone HCl (Dilaudid) 0.5 mg IVP Q4H PRN PRN Reason: Pain, severe (8-10) Potassium Chloride/Dextrose/Sod Cl (Potassium Chl 20 Meq In D5-1/2ns) 1,000 mls @ 130 mls/hr IV .Q7H42M [facility] Insulin Human Lispro (Humalog Med) 0 units SC [facility]; Protocol Last Admin: 05/26/18 07:39 Dose: Not Given Ketorolac Tromethamine (Toradol) 30 mg IVP Q6 [facility] Stop: 05/27/18 12:01 Last Admin: 05/25/18 21:55 Dose: 30 mg Ondansetron HCl (Zofran Inj) 4 mg IVP Q6H PRN PRN Reason: Nausea/Vomiting Last Admin: 05/23/18 15:49 Dose: 4 mg Pantoprazole Sodium (Protonix Inj) 40 mg IVP DAILY [facility] Last Admin: 05/25/18 09:11 Dose: 40 mg - Labs Labs: 05/26/18 06:20 05/26/18 06:20 PT 16.0 SECONDS (9.4-12.5) H 05/24/18 06:15 INR 1.38 05/24/18 06:15 APTT 29.1 Seconds (25.1-36.5) 05/24/18 06:15 - Constitutional Appears: Well, Non-toxic - Head Exam Head Exam: ATRAUMATIC, NORMAL INSPECTION, NORMOCEPHALIC - Eye Exam Eye Exam: EOMI, Normal appearance - Neck Exam Neck Exam: Normal Inspection - Respiratory Exam Respiratory Exam: Clear to Ausculation Bilateral, NORMAL BREATHING PATTERN - Cardiovascular Exam Cardiovascular Exam: REGULAR RHYTHM - GI/Abdominal Exam GI & Abdominal Exam: Distended, Firm, Tenderness (slight TTP throughout all quadrants), Normal Bowel Sounds. absent: Guarding, Hernia, Mass, Rebound Additional comments: colostomy bad LLQ, c/d/i, no erythema, no ecchymosis, no edema - Extremities Exam Extremities Exam: Normal Capillary Refill Additional comments: peripheral pulses strong - Neurological Exam Neurological Exam: Alert, Awake, Oriented x3 - Psychiatric Exam Psychiatric exam: Normal Affect, Normal Mood - Skin Skin Exam: Dry, Intact, Normal Color, Warm Assessment and Plan - Assessment and Plan (Free Text) Assessment: 57F w/ acute diverticulitis s/p Amaury's POD2 Tolerating CLD - will advance if still able to tolerate today, 05/26 d/c bauer ordered today, 05/26 Continue IVF Continue HANDY MAN and PRN pain medications Antiemetics PRN IS use OOB encouraged - PT ordered for assistance IV Abx - ID following Further recommendations per Dr. Isiah Magana PGY1
[2018-05-26] MEDS: Enoxaparin 40 mg Syringe SC SCH (09:07)
[2018-05-26] MEDS: Potassium Ch 20mEq in D5-1/2NS 1,000 ML IV SCH (09:11)
--- NOTE | 2018-05-26 14:50 | CP.PCM.PN ---
Subjective - Date & Time of Evaluation Date of Evaluation: 05/26/18 Time of Evaluation: 13:30 - Subjective Subjective: Infectious Disease Follow Up: May 26, 2018 57 yo female with PMHx of Diverticulosis, HTN, and DM who presents again with left lower quadrant pain starting a day prior to admission. The patient states that the pain has progressively worsened throughout the day. 5th hospitalization this year for abdominal pain and diverticulosis/diverticulitis. Patient is currently on Zosyn for antibiotic care. No additional issues. Patient with improvement in abdominal pain. Leary procedure performed. Tolerating liquid diet. Objective - Vital Signs/Intake and Output Vital Signs (last 24 hours): Temp Pulse Resp BP Pulse Ox 98.8 F 78 20 107/66 100 05/26/18 06:00 05/26/18 06:00 05/26/18 06:00 05/26/18 06:00 05/26/18 06:00 Intake and Output: 05/26/18 05/26/18 06:59 18:59 Intake Total 280 Output Total 1400 Balance -1120 - Medications Medications: Current Medications Acetaminophen (Tylenol 325mg Tab) 650 mg PO Q6H PRN PRN Reason: Pain, Mild (1-3) Last Admin: 05/25/18 16:12 Dose: 650 mg Enoxaparin Sodium (Lovenox) 40 mg SC DAILY [facility]S [facility]; Protocol Last Admin: 05/26/18 09:07 Dose: 40 mg Hydralazine HCl (Apresoline) 10 mg IVP Q6H PRN PRN Reason: Systolic Blood Pressure Hydromorphone HCl (Dilaudid) 0.5 mg IVP Q4H PRN PRN Reason: Pain, severe (8-10) Potassium Chloride/Dextrose/Sod Cl (Potassium Chl 20 Meq In D5-1/2ns) 1,000 mls @ 130 mls/hr IV .Q7H42M [facility]S [facility]CLUDE 234 BEDS AT [facility] Last Admin: 05/26/18 09:11 Dose: 130 mls/hr Insulin Human Lispro (Humalog Med) 0 units SC ACHS [facility]S [facility]CLUDE 234 BEDS AT [facility]; Protocol Last Admin: 05/26/18 11:25 Dose: Not Given Ketorolac Tromethamine (Toradol) 30 mg IVP Q6 [facility] Stop: 05/27/18 12:01 Last Admin: 05/26/18 11:27 Dose: 30 mg Ondansetron HCl (Zofran Inj) 4 mg IVP Q6H PRN PRN Reason: Nausea/Vomiting Last Admin: 05/23/18 15:49 Dose: 4 mg Pantoprazole Sodium (Protonix Inj) 40 mg IVP DAILY [facility] Last Admin: 05/26/18 09:09 Dose: 40 mg - Labs Labs: 05/26/18 06:20 05/26/18 06:20 PT 16.0 SECONDS (9.4-12.5) H 05/24/18 06:15 INR 1.38 05/24/18 06:15 APTT 29.1 Seconds (25.1-36.5) 05/24/18 06:15 - Head Exam Head Exam: ATRAUMATIC, NORMOCEPHALIC - Eye Exam Eye Exam: EOMI, PERRL Pupil Exam: NORMAL ACCOMODATION, PERRL - ENT Exam ENT Exam: Mucous Membranes Moist, Normal External Ear Exam, TM's Normal Bilaterally - Neck Exam Neck Exam: Full ROM, Normal Inspection - Respiratory Exam Respiratory Exam: Clear to Ausculation Bilateral, NORMAL BREATHING PATTERN. absent: Rales, Rhonchi, Wheezes - Cardiovascular Exam Cardiovascular Exam: REGULAR RHYTHM, RRR, +S1, +S2 - GI/Abdominal Exam GI & Abdominal Exam: Soft, Normal Bowel Sounds. absent: Distended, Tenderness Additional comments: ostomy pink - Extremities Exam Extremities Exam: Full ROM, Normal Inspection - Neurological Exam Neurological Exam: Alert, Awake, CN II-XII Intact, Oriented x3 - Psychiatric Exam Psychiatric exam: Normal Affect, Normal Mood - Skin Skin Exam: Intact, Normal Color Additional comments: except abdominal incision dressing c/d/i Assessment and Plan - Assessment and Plan (Free Text) Assessment: 57 yo female with nausea, vomiting, and abdominal pain again that she rates as a 10 out of 10. The patient is still without fevers or leukocytosis at this time. CT Imaging studies showing acute sigmoid diverticulitis. Supportive care. Switch to Zosyn. The patient is feeling better today with significant improvement to abdominal pain. Surgery performed Leary procedure. If entire inflamed sigmoid colon/diverticu litis was removed, then stoppage of Zosyn is reasonable under SCIP protocols for improved surgical outcomes. If the bowel was noted to have other areas of inflamation, Zosyn should still be continued. Patient with Hypertension, NIDDM, and history of diverticulitis. Surgical evaluation. Multiple visits for the same issues. Leary procedure performed during this hospitalization. No leukocytosis. Patient appears comfortable. Thank you for allowing me to participate in the care of the patient, we will follow with you.
[2018-05-27 07:08] LABS: HEMOGLOBIN 8.1 g/dL (12.0-16.0); MEAN CELL VOLUME 80.9 fl (80.0-105.0); MEAN CORPUSCULAR HEMOGLOBIN 25.3 pg (25.0-35.0); MEAN CORPUSCULAR HGB CONC 31.3 g/dl (31.0-37.0); MEAN PLATELET VOLUME 8.9 fl (7.0-11.0); RBC 3.2 10^6/uL (3.5-6.1); RED CELL DISTRIBUTION WIDTH 14.8 % (11.5-14.5); WHITE BLOOD COUNT 6.8 10^3/uL (4.5-11.0)
--- NOTE | 2018-05-27 07:34 | CP.PCM.PN ---
Subjective - Date & Time of Evaluation Date of Evaluation: 05/27/18 Time of Evaluation: 07:33 - Subjective Subjective: Surgery Progress Note for Dr. Joyce Patient seen and examined at bedside this morning, currently s/p Amaury's POD3. She has been able to tolerate her liquid diet without nausea and vomiting. Patient states she has been passing gas and the gas comes out as air from her colostomy bag, however, no stool so far. Has been getting OOB without issues. Denies headaches, fevers, chills, night sweats. Objective - Vital Signs/Intake and Output Vital Signs (last 24 hours): Temp Pulse Resp BP Pulse Ox 98.4 F 83 18 127/86 97 05/26/18 21:41 05/26/18 21:41 05/26/18 21:41 05/26/18 21:41 05/26/18 21:41 Intake and Output: 05/27/18 05/27/18 06:59 18:59 Intake Total 1080 Balance 1080 - Medications Medications: Current Medications Acetaminophen (Tylenol 325mg Tab) 650 mg PO Q6H PRN PRN Reason: Pain, Mild (1-3) Last Admin: 05/25/18 16:12 Dose: 650 mg Enoxaparin Sodium (Lovenox) 40 mg SC DAILY [facility]; Protocol Last Admin: 05/26/18 09:07 Dose: 40 mg Hydralazine HCl (Apresoline) 10 mg IVP Q6H PRN PRN Reason: Systolic Blood Pressure Hydromorphone HCl (Dilaudid) 0.5 mg IVP Q4H PRN PRN Reason: Pain, severe (8-10) Potassium Chloride/Dextrose/Sod Cl (Potassium Chl 20 Meq In D5-1/2ns) 1,000 mls @ 130 mls/hr IV .Q7H42M [facility] Last Admin: 05/26/18 09:11 Dose: 130 mls/hr Insulin Human Lispro (Humalog Med) 0 units SC ACHS [facility]; Protocol Last Admin: 05/26/18 21:58 Dose: Not Given Ketorolac Tromethamine (Toradol) 30 mg IVP Q6 [facility] Stop: 05/27/18 12:01 Last Admin: 05/27/18 05:52 Dose: 30 mg Ondansetron HCl (Zofran Inj) 4 mg IVP Q6H PRN PRN Reason: Nausea/Vomiting Last Admin: 05/23/18 15:49 Dose: 4 mg Oxycodone/Acetaminophen (Percocet 5/325 Mg Tab) 1 tab PO Q4H PRN PRN Reason: Pain, moderate (4-7) Stop: 05/29/18 16:36 Pantoprazole Sodium (Protonix Inj) 40 mg IVP DAILY [facility] Last Admin: 05/26/18 09:09 Dose: 40 mg - Labs Labs: 05/27/18 06:20 05/26/18 06:20 PT 16.0 SECONDS (9.4-12.5) H 05/24/18 06:15 INR 1.38 05/24/18 06:15 APTT 29.1 Seconds (25.1-36.5) 05/24/18 06:15 - Constitutional Appears: Well, Non-toxic - Head Exam Head Exam: ATRAUMATIC, NORMAL INSPECTION, NORMOCEPHALIC - Eye Exam Eye Exam: EOMI, Normal appearance - Neck Exam Neck Exam: Normal Inspection - Respiratory Exam Respiratory Exam: Clear to Ausculation Bilateral, NORMAL BREATHING PATTERN - Cardiovascular Exam Cardiovascular Exam: REGULAR RHYTHM - GI/Abdominal Exam GI & Abdominal Exam: Soft, Normal Bowel Sounds. absent: Bruit, Distended, Firm, Guarding, Rigid, Tenderness Additional comments: colostomy bag c/d/i - s/p dressing change today during surgery rounds - Extremities Exam Extremities Exam: Normal Inspection - Psychiatric Exam Psychiatric exam: Normal Affect, Normal Mood - Skin Skin Exam: Dry, Intact, Normal Color, Warm Assessment and Plan - Assessment and Plan (Free Text) Assessment: 57F w/ acute diverticulitis s/p Amaury's POD3 Tolerating CLD - advanced to full liquid diet starting breakfast today, 05/27 continue to monitor bowel function continue with OOB PRN pain medications and antiemetics IS use Further recommendations per Dr. Isiah Magana PGY1
[2018-05-27] MEDS: Insulin Lispro (humaLOG) MEDIUM Coverage SC SCH ×3 (07:38→16:56)
[2018-05-27 07:54] LABS: BLOOD UREA NITROGEN 4 mg/dL (7-21); CALCIUM 8.1 mg/dL (8.4-10.5); GFR NON-AFRICAN AMERICAN > 60
[2018-05-27] MEDS: Enoxaparin 40 mg Syringe SC SCH (09:41)
[2018-05-27 13:34] LABS: BASO # 0.01 K/mm3 (0.0-2.0); BASO % 0.2 % (0.0-3.0); EOS # 0.2 (0.0-0.7); EOS % 3.3 % (1.5-5.0); GRAN # 4.64 (1.4-6.5); GRAN % 69.7 % (50.0-68.0); HEMOGLOBIN 8.5 g/dL (12.0-16.0); LYMPH # 1.4 (1.2-3.4); LYMPH % 20.6 % (22.0-35.0); MEAN CELL VOLUME 80.3 fl (80.0-105.0); MEAN CORPUSCULAR HGB CONC 31.1 g/dl (31.0-37.0); MEAN PLATELET VOLUME 8.5 fl (7.0-11.0); MONO # 0.4 (0.1-0.6); MONO % 6.2 % (1.0-6.0); RBC 3.4 10^6/uL (3.5-6.1); RED CELL DISTRIBUTION WIDTH 14.8 % (11.5-14.5); WHITE BLOOD COUNT 6.7 10^3/uL (4.5-11.0)
--- NOTE | 2018-05-27 14:54 | CP.PCM.PN ---
Subjective - Date & Time of Evaluation Date of Evaluation: 05/27/18 Time of Evaluation: 13:45 - Subjective Subjective: Infectious Disease Follow Up: May 27, 2018 57 yo female with PMHx of Diverticulosis, HTN, and DM who presents again with left lower quadrant pain starting a day prior to admission. The patient states that the pain has progressively worsened throughout the day. 5th hospitalization this year for abdominal pain and diverticulosis/diverticulitis. Patient was on Zosyn for antibiotic care. No additional issues. Patient with improvement in abdominal pain. Leary procedure performed. Tolerating liquid diet. Objective - Vital Signs/Intake and Output Vital Signs (last 24 hours): Temp Pulse Resp BP Pulse Ox 98 F 82 20 121/74 97 05/27/18 06:00 05/27/18 06:00 05/27/18 06:00 05/27/18 06:00 05/27/18 06:00 Intake and Output: 05/27/18 05/27/18 06:59 18:59 Intake Total 1080 Balance 1080 - Medications Medications: Current Medications Acetaminophen (Tylenol 325mg Tab) 650 mg PO Q6H PRN PRN Reason: Pain, Mild (1-3) Last Admin: 05/25/18 16:12 Dose: 650 mg Enoxaparin Sodium (Lovenox) 40 mg SC DAILY [facility]; Protocol Last Admin: 05/27/18 09:41 Dose: 40 mg Hydralazine HCl (Apresoline) 10 mg IVP Q6H PRN PRN Reason: Systolic Blood Pressure Potassium Chloride/Dextrose/Sod Cl (Potassium Chl 20 Meq In D5-1/2ns) 1,000 mls @ 130 mls/hr IV .Q7H42M [facility] Last Admin: 05/26/18 09:11 Dose: 130 mls/hr Insulin Human Lispro (Humalog Med) 0 units SC ACHS [facility]; Protocol Last Admin: 05/27/18 12:19 Dose: 1 u Ondansetron HCl (Zofran Inj) 4 mg IVP Q6H PRN PRN Reason: Nausea/Vomiting Last Admin: 05/23/18 15:49 Dose: 4 mg Oxycodone/Acetaminophen (Percocet 5/325 Mg Tab) 1 tab PO Q4H PRN PRN Reason: Pain, moderate (4-7) Stop: 05/29/18 16:36 Pantoprazole Sodium (Protonix Inj) 40 mg IVP DAILY [facility] Last Admin: 05/27/18 09:40 Dose: 40 mg - Labs Labs: 05/27/18 13:25 05/27/18 06:20 PT 16.0 SECONDS (9.4-12.5) H 05/24/18 06:15 INR 1.38 05/24/18 06:15 APTT 29.1 Seconds (25.1-36.5) 05/24/18 06:15 - Constitutional Appears: Non-toxic, No Acute Distress - Head Exam Head Exam: ATRAUMATIC, NORMOCEPHALIC - Eye Exam Eye Exam: EOMI, PERRL Pupil Exam: NORMAL ACCOMODATION, PERRL - ENT Exam ENT Exam: Mucous Membranes Moist, Normal External Ear Exam, TM's Normal Bilaterally - Neck Exam Neck Exam: Full ROM, Normal Inspection - Respiratory Exam Respiratory Exam: Clear to Ausculation Bilateral, NORMAL BREATHING PATTERN. absent: Rales, Rhonchi, Wheezes - Cardiovascular Exam Cardiovascular Exam: REGULAR RHYTHM, RRR, +S1, +S2 - GI/Abdominal Exam GI & Abdominal Exam: Soft, Normal Bowel Sounds. absent: Distended, Tenderness Additional comments: ostomy pink - Extremities Exam Extremities Exam: Full ROM, Normal Inspection - Neurological Exam Neurological Exam: Alert, Awake, CN II-XII Intact, Oriented x3 - Psychiatric Exam Psychiatric exam: Normal Affect, Normal Mood - Skin Skin Exam: Intact, Normal Color Additional comments: except abdominal incision dressing c/d/i Assessment and Plan - Assessment and Plan (Free Text) Assessment: 57 yo female with nausea, vomiting, and abdominal pain again that she rates as a 10 out of 10. The patient is still without fevers or leukocytosis at this time. CT Imaging studies showing acute sigmoid diverticulitis. Supportive care. S witch to Zosyn. The patient is feeling better today with significant improvement to abdominal pain. Surgery performed Leary procedure. If entire inflamed sigmoid colon/diverticulitis was removed, then stoppage of Zosyn is reasonable under SCIP protocols for improved surgical outcomes. If the bowel was noted to have other areas of inflamation, Zosyn should still be continued. Patient with Hypertension, NIDDM, and history of diverticulitis. Surgical evaluation. Multiple visits for the same issues. Leary procedure performed during this hospitalization. No leukocytosis. Patient appears comfortable. Passing gas but no stool as of yet. Thank you for allowing me to participate in the care of the patient, we will follow with you.
--- NOTE | 2018-05-27 15:20 | CP.PCM.PN ---
<Jayesh Huddleston - Last Filed: 05/27/18 15:16> Subjective - Date & Time of Evaluation Date of Evaluation: 05/27/18 Time of Evaluation: 09:00 - Subjective Subjective: Jayesh Huddleston PGY-1 Progress Note for Hospitalist Service Patient seen and evaluated at bedside. Reports no acute events overnight. S/p sigmoidectomy w/colostomy POD#3. Patient is passing gas, urinating, and is tolerating her clear liquid diet. Patient denies chest pain, shortness of breath, nausea, vomiting, palpitations, abdominal pain, fevers, chills. Denies hematuria and hemoptysis. Objective - Vital Signs/Intake and Output Vital Signs (last 24 hours): Temp Pulse Resp BP Pulse Ox 98 F 82 20 121/74 97 05/27/18 06:00 05/27/18 06:00 05/27/18 06:00 05/27/18 06:00 05/27/18 06:00 Intake and Output: 05/27/18 05/27/18 06:59 18:59 Intake Total 1080 Balance 1080 - Medications Medications: Current Medications Acetaminophen (Tylenol 325mg Tab) 650 mg PO Q6H PRN PRN Reason: Pain, Mild (1-3) Last Admin: 05/25/18 16:12 Dose: 650 mg Enoxaparin Sodium (Lovenox) 40 mg SC DAILY [facility]; Protocol Last Admin: 05/27/18 09:41 Dose: 40 mg Hydralazine HCl (Apresoline) 10 mg IVP Q6H PRN PRN Reason: Systolic Blood Pressure Potassium Chloride/Dextrose/Sod Cl (Potassium Chl 20 Meq In D5-1/2ns) 1,000 mls @ 130 mls/hr IV .[id number] [facility] Last Admin: 05/26/18 09:11 Dose: 130 mls/hr Insulin Human Lispro (Humalog Med) 0 units SC ACHS [facility]; Protocol Last Admin: 05/27/18 12:19 Dose: 1 u Ondansetron HCl (Zofran Inj) 4 mg IVP Q6H PRN PRN Reason: Nausea/Vomiting Last Admin: 05/23/18 15:49 Dose: 4 mg Oxycodone/Acetaminophen (Percocet 5/325 Mg Tab) 1 tab PO Q4H PRN PRN Reason: Pain, moderate (4-7) Stop: 05/29/18 16:36 Pantoprazole Sodium (Protonix Inj) 40 mg IVP DAILY [facility] Last Admin: 05/27/18 09:40 Dose: 40 mg - Labs Labs: 05/27/18 13:25 05/27/18 06:20 PT 16.0 SECONDS (9.4-12.5) H 05/24/18 06:15 INR 1.38 05/24/18 06:15 APTT 29.1 Seconds (25.1-36.5) 05/24/18 06:15 - Additional Findings Additional findings: - Constitutional Appears: Well, Non-toxic - Head Exam Head Exam: ATRAUMATIC, NORMAL INSPECTION, NORMOCEPHALIC - Eye Exam Eye Exam: EOMI, Normal appearance - Neck Exam Neck Exam: Normal Inspection - Respiratory Exam Respiratory Exam: Clear to Auscultation Bilateral, NORMAL BREATHING PATTERN - Cardiovascular Exam Cardiovascular Exam: REGULAR RHYTHM - GI/Abdominal Exam GI & Abdominal Exam: Soft, Normal Bowel Sounds. absent: Bruit, Distended, Firm, Guarding, Rigid, Tenderness Additional comments: colostomy bag c/d/i - s/p dressing change. No fecal matter, bowel gas noted inside bad - Extremities Exam Extremities Exam: Normal Inspection - Psychiatric Exam Psychiatric exam: Normal Affect, Normal Mood - Skin Skin Exam: Dry, Intact, Normal Color, Warm Assessment and Plan - Assessment and Plan (Free Text) Assessment: Patient is a 57 year old female with past medical history of HTN, DM2, recurrent diverticulitis presenting with chief complaint of abdominal pain that began this morning and was found to have sigmoid diverticulitis on CT scan now s/p sigmoidectomy with colostomy bag POD #3. Plan: Diverticulitis - s/p sigmoidectomy w/colostomy POD #3 - CT abdomen shows acute diverticulitis involving sigmoid colon - Colonoscopy from 02/2018 showed diverticula in sigmoid colon, descending colon. Hemorrhoids. - Endoscopy from 02/2018 showed normal esophagus, mild inflammation in gastric fundus, single 3 mm polyp in stomach, normal duodenal bulb - afebrile, no leukocytosis - Toradol 30 mg IV Q6 - Zofran 4 mg IV Q6H PRN - Tolerating clear liquid diet, advanced to full liquid and will monitor to advance as tolerated - Surgery consulted. Dr. Joyce - ID consulted - Dr. Rajan- october d/c Osei if entire inflamed portion was removed Anemia - Hgb over hospital course dropping from 9.9 to 9.5 to 8.7 to 8.1, likely 2/2 blood loss 2/2 surgery vs dilutional 2/2 IVF - Repeat later today showed Hgb 8.5 - Continue to monitor level and for any signs of bleeding HTN - Hydralazine 10 mg IV Q6H PRN T2DM - Accuchecks ACHS - ISS DVT/GI PPX - Protonix 40 mg IV daily - Lovenox 40 mg SC daily Patient seen, case discussed and plan approved with attending Dr. Fox. Jayesh Huddleston, PGY-1 <Chrystal Fox - Last Filed: 05/28/18 11:45> Objective - Vital Signs/Intake and Output Vital Signs (last 24 hours): Temp Pulse Resp BP Pulse Ox 98 F 61 20 127/81 100 05/28/18 07:00 05/28/18 07:00 05/28/18 07:00 05/28/18 07:00 05/28/18 07:00 Intake and Output: 05/28/18 05/28/18 06:59 18:59 Intake Total 620 Balance 620 - Medications Medications: Current Medications Acetaminophen (Tylenol 325mg Tab) 650 mg PO Q6H PRN PRN Reason: Pain, Mild (1-3) Last Admin: 05/25/18 16:12 Dose: 650 mg Enoxaparin Sodium (Lovenox) 40 mg SC DAILY [facility]; Protocol Last Admin: 05/28/18 09:14 Dose: 40 mg Hydralazine HCl (Apresoline) 10 mg IVP Q6H PRN PRN Reason: Systolic Blood Pressure Potassium Chloride/Dextrose/Sod Cl (Potassium Chl 20 Meq In D5-1/2ns) 1,000 mls @ 60 mls/hr IV .[id number] [facility] Insulin Human Lispro (Humalog Med) 0 units SC [facility]; Protocol Last Admin: 05/28/18 08:00 Dose: Not Given Ondansetron HCl (Zofran Inj) 4 mg IVP Q6H PRN PRN Reason: Nausea/Vomiting Last Admin: 05/23/18 15:49 Dose: 4 mg Oxycodone/Acetaminophen (Percocet 5/325 Mg Tab) 1 tab PO Q4H PRN PRN Reason: Pain, moderate (4-7) Stop: 05/29/18 16:36 Last Admin: 05/28/18 09:51 Dose: 1 tab Pantoprazole Sodium (Protonix Inj) 40 mg IVP DAILY [facility] Last Admin: 05/28/18 09:15 Dose: 40 mg - Labs Labs: 05/28/18 05:30 05/28/18 05:30 PT 16.0 SECONDS (9.4-12.5) H 05/24/18 06:15 INR 1.38 05/24/18 06:15 APTT 29.1 Seconds (25.1-36.5) 05/24/18 06:15 Attending/Attestation - Attestation I have personally seen and examined this patient.: Yes I have fully participated in the care of the patient.: Yes I have reviewed all pertinent clinical information, including history, physical exam and plan: Yes Notes (Text): 05/28/18 11:43 Medical record note made by the resident after discussion with my direction and input after the patient was personally seen and examined by me. I have reviewed the chart and agree that the record accurately reflects by personal performance of the history, physical exam, data review, and medical decision-making, in the course for the patient. I have also personally directed the plan of care. Medical record note made by the resident after discussion with my direction and input after the patient was personally seen and examined by me. I have reviewed the chart and agree that the record accurately reflects by personal performance of the history, physical exam, data review, and medical decision-making, in the course for the patient. I have also personally directed the plan of care. 57 year old female with past medical history of hypertension, diabetes and recurrent diverticulitis who presented with complaint of abdominal pain found to have recurrent sigmoid diverticulitis, she was treated with IV antibiotics and is now SP sigmoidectomy w/colostomy POD #3. Patient is tolerating liquid diet Surgery is following. Anemia, Hemoglobin is 8.5, we will monitor. There is no evidence of bleeding. Management plan was discussed in detail with patient. Education was provided.
[2018-05-27] MEDS: Potassium Ch 20mEq in D5-1/2NS 1,000 ML IV SCH (15:42)
[2018-05-27] MEDS: Oxycodone/Acetaminophen 5/325 mg Tab PO PRN ×2 (15:48→20:14)
[2018-05-28] MEDS: Oxycodone/Acetaminophen 5/325 mg Tab PO PRN ×3 (04:48→20:39)
[2018-05-28] MEDS: Insulin Lispro (humaLOG) MEDIUM Coverage SC SCH ×5 (04:48→22:50)
[2018-05-28] MEDS: Potassium Ch 20mEq in D5-1/2NS 1,000 ML IV SCH (04:49)
[2018-05-28 07:12] LABS: ALB/GLOB RATIO 0.9 (1.1-1.8); ALBUMIN 2.9 g/dL (3.0-4.8); ALT/SGPT 21 U/L (7-56); AST/SGOT 19 U/L (14-36); BLOOD UREA NITROGEN 3 mg/dL (7-21); CALCIUM 8.4 mg/dL (8.4-10.5); GFR NON-AFRICAN AMERICAN > 60
[2018-05-28 07:42] LABS: HEMOGLOBIN 7.7 g/dL (12.0-16.0); MEAN CELL VOLUME 83.2 fl (80.0-105.0); MEAN CORPUSCULAR HEMOGLOBIN 25.4 pg (25.0-35.0); MEAN CORPUSCULAR HGB CONC 30.6 g/dl (31.0-37.0); RBC 3.03 10^6/uL (3.5-6.1); WHITE BLOOD COUNT 5.1 10^3/uL (4.5-11.0)
[2018-05-28 07:43] LABS: BASO # 0.01 K/mm3 (0.0-2.0); BASO % 0.2 % (0.0-3.0); EOS # 0.2 (0.0-0.7); EOS % 4.5 % (1.5-5.0); GRAN # 3.33 (1.4-6.5); GRAN % 64.7 % (50.0-68.0); LYMPH # 1.2 (1.2-3.4); LYMPH % 23.2 % (22.0-35.0); MEAN PLATELET VOLUME 9.6 fl (7.0-11.0); MONO # 0.4 (0.1-0.6); MONO % 7.4 % (1.0-6.0); RED CELL DISTRIBUTION WIDTH 15.1 % (11.5-14.5)
[2018-05-28] MEDS ORDERED: Potassium Ch 20mEq in D5-1/2NS 1,000 ML IV SCH (08:29)
[2018-05-28] MEDS: Enoxaparin 40 mg Syringe SC SCH (09:14)
--- NOTE | 2018-05-28 09:50 | CP.PCM.PN ---
Subjective - Date & Time of Evaluation Date of Evaluation: 05/28/18 Time of Evaluation: 07:00 - Subjective Subjective: Patient seen and examined. No acute events over night. Denies fever/chills, n/v. Stoma appears pink, +fluid output. Objective - Vital Signs/Intake and Output Vital Signs (last 24 hours): Temp Pulse Resp BP Pulse Ox 98 F 61 20 127/81 100 05/28/18 07:00 05/28/18 07:00 05/28/18 07:00 05/28/18 07:00 05/28/18 07:00 Intake and Output: 05/28/18 05/28/18 06:59 18:59 Intake Total 620 Balance 620 - Medications Medications: Current Medications Acetaminophen (Tylenol 325mg Tab) 650 mg PO Q6H PRN PRN Reason: Pain, Mild (1-3) Last Admin: 05/25/18 16:12 Dose: 650 mg Enoxaparin Sodium (Lovenox) 40 mg SC DAILY [facility]; Protocol Last Admin: 05/28/18 09:14 Dose: 40 mg Hydralazine HCl (Apresoline) 10 mg IVP Q6H PRN PRN Reason: Systolic Blood Pressure Potassium Chloride/Dextrose/Sod Cl (Potassium Chl 20 Meq In D5-1/2ns) 1,000 mls @ 60 mls/hr IV .[id number] [facility] Insulin Human Lispro (Humalog Med) 0 units SC ACHS [facility]; Protocol Last Admin: 05/28/18 08:00 Dose: Not Given Ondansetron HCl (Zofran Inj) 4 mg IVP Q6H PRN PRN Reason: Nausea/Vomiting Last Admin: 05/23/18 15:49 Dose: 4 mg Oxycodone/Acetaminophen (Percocet 5/325 Mg Tab) 1 tab PO Q4H PRN PRN Reason: Pain, moderate (4-7) Stop: 05/29/18 16:36 Last Admin: 05/28/18 04:48 Dose: 1 tab Pantoprazole Sodium (Protonix Inj) 40 mg IVP DAILY [facility] Last Admin: 05/28/18 09:15 Dose: 40 mg - Labs Labs: 05/28/18 05:30 05/28/18 05:30 PT 16.0 SECONDS (9.4-12.5) H 05/24/18 06:15 INR 1.38 05/24/18 06:15 APTT 29.1 Seconds (25.1-36.5) 05/24/18 06:15 - Constitutional Appears: No Acute Distress - Head Exam Head Exam: NORMOCEPHALIC - Eye Exam Eye Exam: Normal appearance - ENT Exam ENT Exam: Mucous Membranes Moist - Respiratory Exam Respiratory Exam: NORMAL BREATHING PATTERN - Cardiovascular Exam Cardiovascular Exam: +S1, +S2 - GI/Abdominal Exam GI & Abdominal Exam: Soft - Neurological Exam Neurological Exam: Alert, Awake, Oriented x3 - Psychiatric Exam Psychiatric exam: Normal Mood - Skin Skin Exam: Dry, Intact, Warm Assessment and Plan - Assessment and Plan (Free Text) Assessment: 57F w/ acute diverticulitis s/p Amaury's POD4 Plan: C/w liquids will advance diet once there is a BM continue to monitor bowel function OOB to chair Encourage ambulation Analgesic and anti-emetics prn Further recommendations per Dr. Isiah Cerrato PGY3
--- NOTE | 2018-05-28 09:57 | CP.PCM.PN ---
<Dru Quintero L - Last Filed: 05/28/18 19:18> Subjective - Date & Time of Evaluation Date of Evaluation: 05/28/18 Time of Evaluation: 08:00 - Subjective Subjective: Resident Progress Note for Hospitalist Service Patient examined at bedside. No acute events overnight. Patient is resting comfortably in her chair. Patient states she has not passed stool in her colostomy. States that she is tolerating her liquid diet. Denies fevers, chills, nausea, vomiting, abdominal pain. Objective - Vital Signs/Intake and Output Vital Signs (last 24 hours): Temp Pulse Resp BP Pulse Ox 98 F 61 20 127/81 100 05/28/18 07:00 05/28/18 07:00 05/28/18 07:00 05/28/18 07:00 05/28/18 07:00 Intake and Output: 05/28/18 05/28/18 06:59 18:59 Intake Total 620 Balance 620 - Medications Medications: Current Medications Acetaminophen (Tylenol 325mg Tab) 650 mg PO Q6H PRN PRN Reason: Pain, Mild (1-3) Last Admin: 05/25/18 16:12 Dose: 650 mg Enoxaparin Sodium (Lovenox) 40 mg SC DAILY [facility]; Protocol Last Admin: 05/28/18 09:14 Dose: 40 mg Hydralazine HCl (Apresoline) 10 mg IVP Q6H PRN PRN Reason: Systolic Blood Pressure Potassium Chloride/Dextrose/Sod Cl (Potassium Chl 20 Meq In D5-1/2ns) 1,000 mls @ 60 mls/hr IV .[id number] [facility] Insulin Human Lispro (Humalog Med) 0 units SC [facility]; Protocol Last Admin: 05/28/18 08:00 Dose: Not Given Ondansetron HCl (Zofran Inj) 4 mg IVP Q6H PRN PRN Reason: Nausea/Vomiting Last Admin: 05/23/18 15:49 Dose: 4 mg Oxycodone/Acetaminophen (Percocet 5/325 Mg Tab) 1 tab PO Q4H PRN PRN Reason: Pain, moderate (4-7) Stop: 05/29/18 16:36 Last Admin: 05/28/18 09:51 Dose: 1 tab Pantoprazole Sodium (Protonix Inj) 40 mg IVP DAILY [facility] Last Admin: 05/28/18 09:15 Dose: 40 mg - Labs Labs: 05/28/18 05:30 05/28/18 05:30 PT 16.0 SECONDS (9.4-12.5) H 05/24/18 06:15 INR 1.38 05/24/18 06:15 APTT 29.1 Seconds (25.1-36.5) 05/24/18 06:15 - Additional Findings Additional findings: - Constitutional Appears: Well, Non-toxic - Head Exam Head Exam: ATRAUMATIC, NORMOCEPHALIC - Eye Exam Eye Exam: EOMI, Normal appearance - Neck Exam Neck Exam: Normal Inspection - Respiratory Exam Respiratory Exam: Clear to Auscultation Bilateral, NORMAL BREATHING PATTERN - Cardiovascular Exam Cardiovascular Exam: REGULAR RHYTHM - GI/Abdominal Exam GI & Abdominal Exam: Soft, Normal Bowel Sounds. absent: Bruit, Distended, Firm, Guarding, Rigid, Tenderness Additional comments: colostomy bag c/d/i - s/p dressing change. No fecal matter, bowel gas noted inside bad - Extremities Exam Extremities Exam: Normal Inspection - Psychiatric Exam Psychiatric exam: Normal Affect, Normal Mood - Skin Skin Exam: Dry, Intact, Normal Color, Warm Assessment and Plan - Assessment and Plan (Free Text) Assessment: Patient is a 57 year old female with past medical history of HTN, DM2, recurrent diverticulitis presenting with chief complaint of abdominal pain that began this morning and was found to have sigmoid diverticulitis on CT scan now s/p sigmoidectomy with colostomy bag POD #4. Plan: Diverticulitis - s/p sigmoidectomy w/colostomy POD #4 - CT abdomen shows acute diverticulitis involving sigmoid colon - Colonoscopy from 02/2018 showed diverticula in sigmoid colon, descending colon. Hemorrhoids. - Endoscopy from 02/2018 showed normal esophagus, mild inflammation in gastric fundus, single 3 mm polyp in stomach, normal duodenal bulb - afebrile, no leukocytosis - Toradol 30 mg IV Q6 - Zofran 4 mg IV Q6H PRN - Tolerating clear liquid diet, advanced to full liquid and will monitor to advance as tolerated - Surgery consulted. Dr. Joyce - ID consulted - Dr. Rajan- october d/c Zosychristine if entire inflamed portion was removed Anemia - Hgb stable - Continue to monitor HTN - Hydralazine 10 mg IV Q6H PRN T2DM - Accuchecks ACHS - ISS DVT/GI PPX - Protonix 40 mg IV daily - Lovenox 40 mg SC daily Patient seen, case discussed and plan approved with attending Dr. Fox. Dru Quintero PGY-1 <Chrystal Fox - Last Filed: 05/29/18 13:23> Objective - Vital Signs/Intake and Output Vital Signs (last 24 hours): Temp Pulse Resp BP Pulse Ox 98.3 F 76 20 148/85 98 05/29/18 07:00 05/29/18 07:00 05/29/18 07:00 05/29/18 07:00 05/29/18 07:00 Intake and Output: 05/29/18 05/29/18 06:59 18:59 Intake Total 1200 Balance 1200 - Medications Medications: Current Medications Acetaminophen (Tylenol 325mg Tab) 650 mg PO Q6H PRN PRN Reason: Pain, Mild (1-3) Last Admin: 05/29/18 05:34 Dose: 650 mg Enoxaparin Sodium (Lovenox) 40 mg SC DAILY [facility]; Protocol Last Admin: 05/29/18 09:35 Dose: 40 mg Hydralazine HCl (Apresoline) 10 mg IVP Q6H PRN PRN Reason: Systolic Blood Pressure Ibuprofen (Motrin Tab) 400 mg PO Q6H PRN PRN Reason: Pain, moderate (4-7) Last Admin: 05/29/18 09:34 Dose: 400 mg Insulin Human Lispro (Humalog Med) 0 units SC [facility]; Protocol Last Admin: 05/29/18 07:36 Dose: Not Given Ondansetron HCl (Zofran Inj) 4 mg IVP Q6H PRN PRN Reason: Nausea/Vomiting Last Admin: 05/23/18 15:49 Dose: 4 mg Oxycodone/Acetaminophen (Percocet 5/325 Mg Tab) 1 tab PO Q4H PRN PRN Reason: Pain, moderate (4-7) Stop: 05/29/18 16:36 Last Admin: 05/28/18 20:39 Dose: 1 tab Pantoprazole Sodium (Protonix Inj) 40 mg IVP DAILY [facility] Last Admin: 05/29/18 09:35 Dose: 40 mg Senna/Docusate Sodium (Senokot S 50 Mg-8.6 Mg) 1 tab PO BID [facility] Last Admin: 05/29/18 09:34 Dose: 1 tab - Labs Labs: 05/29/18 06:30 05/29/18 06:30 PT 16.0 SECONDS (9.4-12.5) H 05/24/18 06:15 INR 1.38 05/24/18 06:15 APTT 29.1 Seconds (25.1-36.5) 05/24/18 06:15 Attending/Attestation - Attestation I have personally seen and examined this patient.: Yes I have fully participated in the care of the patient.: Yes I have reviewed all pertinent clinical information, including history, physical exam and plan: Yes Notes (Text): 05/29/18 13:21 Medical record note made by the resident after discussion with my direction and input after the patient was personally seen and examined by me. I have reviewed the chart and agree that the record accurately reflects by personal performance of the history, physical exam, data review, and medical decision-making, in the course for the patient. I have also personally directed the plan of care 57 year old female with past medical history of hypertension, diabetes and recurrent diverticulitis who presented with complaint of abdominal pain found to have recurrent sigmoid diverticulitis, she was treated with IV antibiotics and is now SP sigmoidectomy w/colostomy POD #4 Patient is tolerating liquid diet,Pain is better. Anemia, Hemoglobin is 7/7.We will repeat Hemoglobin.We will transfuse if hemoglobin is less than 7.5.Patient is asymptomatic. Management plan was discussed in detail with patient. Education was provided. 05/29/18 13:22
--- NOTE | 2018-05-28 17:34 | CP.PCM.PN ---
Subjective - Date & Time of Evaluation Date of Evaluation: 05/28/18 Time of Evaluation: 15:15 - Subjective Subjective: Infectious Disease Follow Up: May 28, 2018 57 yo female with PMHx of Diverticulosis, HTN, and DM who presents again with left lower quadrant pain starting a day prior to admission. The patient states that the pain has progressively worsened throughout the day. 5th hospitalization this year for abdominal pain and diverticulosis/diverticulitis. Patient was on Zosyn for antibiotic care. No additional issues. Patient with improvement in abdominal pain. Leary procedure performed. Tolerating liquid diet. Objective - Vital Signs/Intake and Output Vital Signs (last 24 hours): Temp Pulse Resp BP Pulse Ox 98 F 61 20 127/81 100 05/28/18 07:00 05/28/18 07:00 05/28/18 07:00 05/28/18 07:00 05/28/18 07:00 Intake and Output: 05/28/18 05/28/18 06:59 18:59 Intake Total 620 Balance 620 - Medications Medications: Current Medications Acetaminophen (Tylenol 325mg Tab) 650 mg PO Q6H PRN PRN Reason: Pain, Mild (1-3) Last Admin: 05/28/18 16:24 Dose: 650 mg Enoxaparin Sodium (Lovenox) 40 mg SC DAILY [facility]; Protocol Last Admin: 05/28/18 09:14 Dose: 40 mg Hydralazine HCl (Apresoline) 10 mg IVP Q6H PRN PRN Reason: Systolic Blood Pressure Potassium Chloride/Dextrose/Sod Cl (Potassium Chl 20 Meq In D5-1/2ns) 1,000 mls @ 60 mls/hr IV .[id number] [facility] Insulin Human Lispro (Humalog Med) 0 units SC [facility]; Protocol Last Admin: 05/28/18 16:27 Dose: Not Given Ondansetron HCl (Zofran Inj) 4 mg IVP Q6H PRN PRN Reason: Nausea/Vomiting Last Admin: 05/23/18 15:49 Dose: 4 mg Oxycodone/Acetaminophen (Percocet 5/325 Mg Tab) 1 tab PO Q4H PRN PRN Reason: Pain, moderate (4-7) Stop: 05/29/18 16:36 Last Admin: 05/28/18 09:51 Dose: 1 tab Pantoprazole Sodium (Protonix Inj) 40 mg IVP DAILY [facility] Last Admin: 05/28/18 09:15 Dose: 40 mg - Labs Labs: 05/28/18 05:30 05/28/18 05:30 PT 16.0 SECONDS (9.4-12.5) H 05/24/18 06:15 INR 1.38 05/24/18 06:15 APTT 29.1 Seconds (25.1-36.5) 05/24/18 06:15 - Constitutional Appears: Non-toxic, No Acute Distress - Head Exam Head Exam: ATRAUMATIC, NORMOCEPHALIC - Eye Exam Eye Exam: EOMI, PERRL Pupil Exam: NORMAL ACCOMODATION, PERRL - ENT Exam ENT Exam: Mucous Membranes Moist, Normal External Ear Exam, TM's Normal Bilaterally - Neck Exam Neck Exam: Full ROM, Normal Inspection - Respiratory Exam Respiratory Exam: Clear to Ausculation Bilateral, NORMAL BREATHING PATTERN. absent: Rales, Rhonchi, Wheezes - Cardiovascular Exam Cardiovascular Exam: REGULAR RHYTHM, RRR, +S1, +S2 - GI/Abdominal Exam GI & Abdominal Exam: Soft, Normal Bowel Sounds. absent: Distended, Tenderness Additional comments: ostomy pink - Extremities Exam Extremities Exam: Full ROM, Normal Inspection - Neurological Exam Neurological Exam: Alert, Awake, CN II-XII Intact, Oriented x3 - Psychiatric Exam Psychiatric exam: Normal Affect, Normal Mood - Skin Skin Exam: Intact, Normal Color Additional comments: except abdominal incision dressing c/d/i Assessment and Plan - Assessment and Plan (Free Text) Assessment: 57 yo female with nausea, vomiting, and abdominal pain again that she rates as a 10 out of 10. The patient is still without fevers or leukocytosis at this time. CT Imaging studies showing acute sigmoid diverticulitis. Supportive care. Sw itch to Zosyn. The patient is feeling better today with significant improvement to abdominal pain. Surgery performed Leary procedure. If entire inflamed sigmoid colon/diverticulitis was removed, then stoppage of Zosyn is reasonable under SCIP protocols for improved surgical outcomes. If the bowel was noted to have other areas of inflamation, Zosyn should still be continued. Patient with Hypertension, NIDDM, and history of diverticulitis. Surgical evaluation. Multiple visits for the same issues. Leary procedure performed during this hospitalization. No leukocytosis. Patient appears comfortable. Passing gas but no stool as of yet. No additional issues. Patient comfortable. Thank you for allowing me to participate in the care of the patient, we will follow with you.
[2018-05-29 06:51] LABS: BASO # 0.01 K/mm3 (0.0-2.0); BASO % 0.2 % (0.0-3.0); EOS # 0.2 (0.0-0.7); GRAN # 3.55 (1.4-6.5); GRAN % 67.5 % (50.0-68.0); HEMOGLOBIN 8.3 g/dL (12.0-16.0); LYMPH # 1.2 (1.2-3.4); LYMPH % 22.4 % (22.0-35.0); MEAN CELL VOLUME 80.1 fl (80.0-105.0); MEAN CORPUSCULAR HGB CONC 31.2 g/dl (31.0-37.0); MEAN PLATELET VOLUME 8.5 fl (7.0-11.0); MONO # 0.3 (0.1-0.6); MONO % 5.9 % (1.0-6.0); RBC 3.32 10^6/uL (3.5-6.1); RED CELL DISTRIBUTION WIDTH 14.9 % (11.5-14.5); WHITE BLOOD COUNT 5.3 10^3/uL (4.5-11.0)
[2018-05-29 06:58] LABS: IRON 27 ug/dL (45-180)
[2018-05-29 07:07] LABS: % IRON SATURATION 11 % (20-55); TOTAL IRON BINDING CAPACITY 238 ug/dL (265-497)
[2018-05-29 07:21] LABS: ALBUMIN 3.1 g/dL (3.0-4.8); ALT/SGPT 27 U/L (7-56); AST/SGOT 21 U/L (14-36); BLOOD UREA NITROGEN 3 mg/dL (7-21); CALCIUM 8.7 mg/dL (8.4-10.5); GFR NON-AFRICAN AMERICAN > 60
[2018-05-29] MEDS: Insulin Lispro (humaLOG) MEDIUM Coverage SC SCH ×3 (07:36→16:55)
--- NOTE | 2018-05-29 07:52 | CP.PCM.PN ---
Subjective - Date & Time of Evaluation Date of Evaluation: 05/29/18 Time of Evaluation: 06:25 - Subjective Subjective: Patient seen and examined. No acute events over night. Denies fever/chills. Tolerating liquids. Ambulating. Stoma is pink and patent. +flatus. Objective - Vital Signs/Intake and Output Vital Signs (last 24 hours): Temp Pulse Resp BP Pulse Ox 98.3 F 66 18 154/77 H 99 05/28/18 22:50 05/28/18 22:50 05/28/18 22:50 05/28/18 22:50 05/28/18 22:50 Intake and Output: 05/29/18 05/29/18 06:59 18:59 Intake Total 1200 Balance 1200 - Medications Medications: Current Medications Acetaminophen (Tylenol 325mg Tab) 650 mg PO Q6H PRN PRN Reason: Pain, Mild (1-3) Last Admin: 05/29/18 05:34 Dose: 650 mg Enoxaparin Sodium (Lovenox) 40 mg SC DAILY [facility]; Protocol Last Admin: 05/28/18 09:14 Dose: 40 mg Hydralazine HCl (Apresoline) 10 mg IVP Q6H PRN PRN Reason: Systolic Blood Pressure Potassium Chloride/Dextrose/Sod Cl (Potassium Chl 20 Meq In D5-1/2ns) 1,000 mls @ 60 mls/hr IV .[id number] [facility] Last Admin: 05/29/18 05:29 Dose: 60 mls/hr Insulin Human Lispro (Humalog Med) 0 units SC ACHS [facility]; Protocol Last Admin: 05/28/18 22:50 Dose: Not Given Ondansetron HCl (Zofran Inj) 4 mg IVP Q6H PRN PRN Reason: Nausea/Vomiting Last Admin: 05/23/18 15:49 Dose: 4 mg Oxycodone/Acetaminophen (Percocet 5/325 Mg Tab) 1 tab PO Q4H PRN PRN Reason: Pain, moderate (4-7) Stop: 05/29/18 16:36 Last Admin: 05/28/18 20:39 Dose: 1 tab Pantoprazole Sodium (Protonix Inj) 40 mg IVP DAILY [facility] Last Admin: 05/28/18 09:15 Dose: 40 mg - Labs Labs: 05/29/18 06:30 05/29/18 06:30 PT 16.0 SECONDS (9.4-12.5) H 05/24/18 06:15 INR 1.38 05/24/18 06:15 APTT 29.1 Seconds (25.1-36.5) 05/24/18 06:15 - Constitutional Appears: No Acute Distress - Head Exam Head Exam: NORMOCEPHALIC - Eye Exam Eye Exam: EOMI, Normal appearance - ENT Exam ENT Exam: Mucous Membranes Moist - Respiratory Exam Respiratory Exam: NORMAL BREATHING PATTERN - Cardiovascular Exam Cardiovascular Exam: +S1, +S2 - GI/Abdominal Exam GI & Abdominal Exam: Soft. absent: Firm, Guarding, Rigid, Tenderness, Rebound - Neurological Exam Neurological Exam: Alert, Awake, Oriented x3 - Psychiatric Exam Psychiatric exam: Normal Mood - Skin Skin Exam: Dry, Intact, Warm Assessment and Plan - Assessment and Plan (Free Text) Assessment: 57F w/ acute diverticulitis s/p Amaury's POD5 Plan: ADAT continue to monitor bowel function OOB to chair Encourage ambulation Analgesic and anti-emetics prn Further recommendations per Dr. Isiah Cerrato PGY3
[2018-05-29] MEDS: Docusate-Senna 50 mg-8.6 mg Tab PO SCH ×2 (09:34→18:57)
[2018-05-29] MEDS: Enoxaparin 40 mg Syringe SC SCH (09:35)
[2018-05-29 12:12] LABS: FERRITIN 83.5 ng/mL
--- NOTE | 2018-05-29 15:12 | CP.PCM.PN ---
<Jayesh Huddleston - Last Filed: 05/29/18 15:09> Subjective - Date & Time of Evaluation Date of Evaluation: 05/29/18 Time of Evaluation: 10:00 - Subjective Subjective: Jayesh Huddleston PGY-1 Progress Note for Hospitalist Service Patient seen and evaluated at bedside. Patient was walking around room without issue. No acute events reported overnight. POD#5 of Leary's procedure. Reports tolerating liquid diet, although she states she is waiting for "real food". Denies N/V, fevers, chills, shortness of breath. No evidence of bleeding. Objective - Vital Signs/Intake and Output Vital Signs (last 24 hours): Temp Pulse Resp BP Pulse Ox 98.3 F 76 20 148/85 98 05/29/18 07:00 05/29/18 07:00 05/29/18 07:00 05/29/18 07:00 05/29/18 07:00 Intake and Output: 05/29/18 05/29/18 06:59 18:59 Intake Total 1200 Balance 1200 - Medications Medications: Current Medications Acetaminophen (Tylenol 325mg Tab) 650 mg PO Q6H PRN PRN Reason: Pain, Mild (1-3) Last Admin: 05/29/18 05:34 Dose: 650 mg Enoxaparin Sodium (Lovenox) 40 mg SC DAILY [facility]; Protocol Last Admin: 05/29/18 09:35 Dose: 40 mg Hydralazine HCl (Apresoline) 10 mg IVP Q6H PRN PRN Reason: Systolic Blood Pressure Ibuprofen (Motrin Tab) 400 mg PO Q6H PRN PRN Reason: Pain, moderate (4-7) Last Admin: 05/29/18 09:34 Dose: 400 mg Insulin Human Lispro (Humalog Med) 0 units SC [facility]; Protocol Last Admin: 05/29/18 07:36 Dose: Not Given Ondansetron HCl (Zofran Inj) 4 mg IVP Q6H PRN PRN Reason: Nausea/Vomiting Last Admin: 05/23/18 15:49 Dose: 4 mg Oxycodone/Acetaminophen (Percocet 5/325 Mg Tab) 1 tab PO Q4H PRN PRN Reason: Pain, moderate (4-7) Stop: 05/29/18 16:36 Last Admin: 05/28/18 20:39 Dose: 1 tab Pantoprazole Sodium (Protonix Inj) 40 mg IVP DAILY [facility] Last Admin: 05/29/18 09:35 Dose: 40 mg Senna/Docusate Sodium (Senokot S 50 Mg-8.6 Mg) 1 tab PO BID YOBANY Last Admin: 05/29/18 09:34 Dose: 1 tab - Labs Labs: 05/29/18 06:30 05/29/18 06:30 PT 16.0 SECONDS (9.4-12.5) H 05/24/18 06:15 INR 1.38 05/24/18 06:15 APTT 29.1 Seconds (25.1-36.5) 05/24/18 06:15 - Additional Findings Additional findings: - Constitutional Appears: Well, Non-toxic - Head Exam Head Exam: ATRAUMATIC, NORMOCEPHALIC - Eye Exam Eye Exam: EOMI, Normal appearance - Neck Exam Neck Exam: Normal Inspection - Respiratory Exam Respiratory Exam: Clear to Auscultation Bilateral, NORMAL BREATHING PATTERN - Cardiovascular Exam Cardiovascular Exam: REGULAR RHYTHM - GI/Abdominal Exam GI & Abdominal Exam: Soft, Normal Bowel Sounds. absent: Bruit, Distended, Firm, Guarding, Rigid, Tenderness Additional comments: colostomy bag c/d/i - s/p dressing change. No fecal matter, dark liquid inside - Extremities Exam Extremities Exam: Normal Inspection - Psychiatric Exam Psychiatric exam: Normal Affect, Normal Mood - Skin Skin Exam: Dry, Intact, Normal Color, Warm Assessment and Plan - Assessment and Plan (Free Text) Assessment: Patient is a 57 year old female with past medical history of HTN, DM2, recurrent diverticulitis presenting with chief complaint of abdominal pain that began this morning and was found to have sigmoid diverticulitis on CT scan now s/p sigmoidectomy with colostomy bag POD #5. Plan: Diverticulitis s/p sigmoidectomy w/colostomy POD #5 - CT abdomen shows acute diverticulitis involving sigmoid colon - Colonoscopy from 02/2018 showed diverticula in sigmoid colon, descending colon. Hemorrhoids. - Endoscopy from 02/2018 showed normal esophagus, mild inflammation in gastric fundus, single 3 mm polyp in stomach, normal duodenal bulb - afebrile, no leukocytosis - Toradol 30 mg IV Q6 - Zofran 4 mg IV Q6H PRN - Tolerating full liquid diet, advanced to HHD today and will monitor to advance as tolerated . No formed stool at this time - Surgery consulted. Dr. Joyce - ID consulted - Dr. Rajan- marilee d/c Osei if entire inflamed portion was removed Normocytic Anemia, likely 2/2 inflammatory process 2/2 surgery - Hgb stable 8.3 - Retic count 2.34, Fe 27, Ferritin 83.5, TIBC 238, - Continue to monitor HTN - Hydralazine 10 mg IV Q6H PRN T2DM - Accuchecks ACHS - ISS DVT/GI PPX - Protonix 40 mg IV daily - Lovenox 40 mg SC daily Patient seen, case discussed and plan approved with attending Dr. Fox. Jayesh Huddleston, PGY-1 <Chrystal Fox - Last Filed: 06/06/18 17:09> Objective - Vital Signs/Intake and Output Vital Signs (last 24 hours): Temp Pulse Resp BP Pulse Ox 98.4 F 67 18 117/73 100 06/01/18 13:44 06/01/18 13:44 06/01/18 13:44 06/01/18 13:44 06/01/18 13:44 - Labs Labs: 06/01/18 06:30 06/01/18 06:30 PT 16.0 SECONDS (9.4-12.5) H 05/24/18 06:15 INR 1.38 05/24/18 06:15 APTT 29.1 Seconds (25.1-36.5) 05/24/18 06:15 Attending/Attestation - Attestation I have personally seen and examined this patient.: Yes I have fully participated in the care of the patient.: Yes I have reviewed all pertinent clinical information, including history, physical exam and plan: Yes Notes (Text): 06/06/18 17:09 Medical record note made by the resident after discussion with my direction and input after the patient was personally seen and examined by me. I have reviewed the chart and agree that the record accurately reflects by personal performance of the history, physical exam, data review, and medical decision-making, in the course for the patient. I have also personally directed the plan of care.
--- NOTE | 2018-05-29 17:56 | CP.PCM.PN ---
Subjective - Date & Time of Evaluation Date of Evaluation: 05/29/18 Time of Evaluation: 15:30 - Subjective Subjective: Infectious Disease Follow Up: May 29, 2018 57 yo female with PMHx of Diverticulosis, HTN, and DM who presents again with left lower quadrant pain starting a day prior to admission. The patient states that the pain has progressively worsened throughout the day. 5th hospitalization this year for abdominal pain and diverticulosis/diverticulitis. Patient was on Zosyn for antibiotic care. No additional issues. Patient with improvement in abdominal pain. Leary procedure performed. Tolerating liquid diet. No additional issues. Objective - Vital Signs/Intake and Output Vital Signs (last 24 hours): Temp Pulse Resp BP Pulse Ox 98.3 F 76 20 148/85 98 05/29/18 07:00 05/29/18 07:00 05/29/18 07:00 05/29/18 07:00 05/29/18 07:00 Intake and Output: 05/29/18 05/29/18 06:59 18:59 Intake Total 1200 Balance 1200 - Medications Medications: Current Medications Acetaminophen (Tylenol 325mg Tab) 650 mg PO Q6H PRN PRN Reason: Pain, Mild (1-3) Last Admin: 05/29/18 05:34 Dose: 650 mg Enoxaparin Sodium (Lovenox) 40 mg SC DAILY [facility]; Protocol Last Admin: 05/29/18 09:35 Dose: 40 mg Hydralazine HCl (Apresoline) 10 mg IVP Q6H PRN PRN Reason: Systolic Blood Pressure Ibuprofen (Motrin Tab) 400 mg PO Q6H PRN PRN Reason: Pain, moderate (4-7) Last Admin: 05/29/18 16:14 Dose: 400 mg Insulin Human Lispro (Humalog Med) 0 units SC [facility]; Protocol Last Admin: 05/29/18 16:55 Dose: Not Given Ondansetron HCl (Zofran Inj) 4 mg IVP Q6H PRN PRN Reason: Nausea/Vomiting Last Admin: 05/23/18 15:49 Dose: 4 mg Pantoprazole Sodium (Protonix Inj) 40 mg IVP DAILY [facility] Last Admin: 05/29/18 09:35 Dose: 40 mg Senna/Docusate Sodium (Senokot S 50 Mg-8.6 Mg) 1 tab PO BID [facility] Last Admin: 05/29/18 09:34 Dose: 1 tab - Labs Labs: 05/29/18 06:30 05/29/18 06:30 PT 16.0 SECONDS (9.4-12.5) H 05/24/18 06:15 INR 1.38 05/24/18 06:15 APTT 29.1 Seconds (25.1-36.5) 05/24/18 06:15 - Constitutional Appears: Non-toxic, No Acute Distress - Head Exam Head Exam: ATRAUMATIC, NORMOCEPHALIC - Eye Exam Eye Exam: EOMI, PERRL Pupil Exam: NORMAL ACCOMODATION, PERRL - ENT Exam ENT Exam: Mucous Membranes Moist, Normal External Ear Exam, TM's Normal Bilaterally - Neck Exam Neck Exam: Full ROM, Normal Inspection - Respiratory Exam Respiratory Exam: Clear to Ausculation Bilateral, NORMAL BREATHING PATTERN. absent: Rales, Rhonchi, Wheezes - Cardiovascular Exam Cardiovascular Exam: REGULAR RHYTHM, RRR, +S1, +S2 - GI/Abdominal Exam GI & Abdominal Exam: Soft, Normal Bowel Sounds. absent: Distended, Tenderness Additional comments: ostomy pink - Extremities Exam Extremities Exam: Full ROM, Normal Inspection - Neurological Exam Neurological Exam: Alert, Awake, CN II-XII Intact, Oriented x3 - Psychiatric Exam Psychiatric exam: Normal Affect, Normal Mood - Skin Skin Exam: Intact, Normal Color Additional comments: except abdominal incision dressing c/d/i Assessment and Plan - Assessment and Plan (Free Text) Assessment: 57 yo female with nausea, vomiting, and abdominal pain again that she rates as a 10 out of 10. The patient is still without fevers or leukocytosis at this time. CT Imaging studies showing acute sigmoid diverticulitis. Supportive care. Switch to Zosyn. The patient is feeling better today with significant improvement to abdominal pain. Surgery performed Leary procedure. If entire inflamed sigmoid colon/diverticulitis was removed, then stoppage of Zosyn is reasonable under SCIP protocols for improved surgical outcomes. If the bowel was noted to have o ther areas of inflamation, Zosyn should still be continued. Patient with Hypertension, NIDDM, and history of diverticulitis. Surgical evaluation. Multiple visits for the same issues. Leary procedure performed during this hospitalization. No leukocytosis. Patient appears comfortable. Passing gas and having soft stool as of yet. No additional issues. Patient comfortable. Thank you for allowing me to participate in the care of the patient, we will follow with you.
[2018-05-30] MEDS: Insulin Lispro (humaLOG) MEDIUM Coverage SC SCH ×4 (01:46→17:00)
[2018-05-30] MEDS: Oxycodone/Acetaminophen 5/325 mg Tab PO PRN ×3 (05:42→17:23)
[2018-05-30 06:48] LABS: BASO # 0.01 K/mm3 (0.0-2.0); BASO % 0.2 % (0.0-3.0); EOS # 0.3 (0.0-0.7); EOS % 4.8 % (1.5-5.0); GRAN # 3.34 (1.4-6.5); GRAN % 63.6 % (50.0-68.0); HEMOGLOBIN 8.4 g/dL (12.0-16.0); LYMPH # 1.4 (1.2-3.4); LYMPH % 26.3 % (22.0-35.0); MEAN CELL VOLUME 80.4 fl (80.0-105.0); MEAN CORPUSCULAR HEMOGLOBIN 24.9 pg (25.0-35.0); MEAN PLATELET VOLUME 8.6 fl (7.0-11.0); MONO # 0.3 (0.1-0.6); MONO % 5.1 % (1.0-6.0); RBC 3.37 10^6/uL (3.5-6.1); RED CELL DISTRIBUTION WIDTH 15.1 % (11.5-14.5); WHITE BLOOD COUNT 5.3 10^3/uL (4.5-11.0)
[2018-05-30 07:00] LABS: ALBUMIN 3.3 g/dL (3.0-4.8); ALT/SGPT 22 U/L (7-56); AST/SGOT 23 U/L (14-36); BLOOD UREA NITROGEN 3 mg/dL (7-21); CALCIUM 8.8 mg/dL (8.4-10.5); GFR NON-AFRICAN AMERICAN > 60
--- NOTE | 2018-05-30 07:36 | CP.PCM.PN ---
Subjective - Date & Time of Evaluation Date of Evaluation: 05/30/18 Time of Evaluation: 07:34 - Subjective Subjective: Surgery Progress Note - Dr. Joyce Patient seen and examined at bedside this morning. Patient used PRN zofran and percocet overnight (early this morning) due to increased nausea and pain. Nausea resolved this morning. Also s/p colostomy wafer and bag change last night; per patient, the apparatus was not intact and had to change overnight. Patient tolerated breakfast well; she states she ate some toast. Objective - Vital Signs/Intake and Output Vital Signs (last 24 hours): Temp Pulse Resp BP Pulse Ox 98.1 F 70 18 157/91 H 98 05/29/18 23:29 05/29/18 23:29 05/29/18 23:29 05/29/18 23:29 05/29/18 23:29 - Medications Medications: Current Medications Acetaminophen (Tylenol 325mg Tab) 650 mg PO Q6H PRN PRN Reason: Pain, Mild (1-3) Last Admin: 05/29/18 05:34 Dose: 650 mg Enoxaparin Sodium (Lovenox) 40 mg SC DAILY [facility]; Protocol Last Admin: 05/29/18 09:35 Dose: 40 mg Hydralazine HCl (Apresoline) 10 mg IVP Q6H PRN PRN Reason: Systolic Blood Pressure Ibuprofen (Motrin Tab) 400 mg PO Q6H PRN PRN Reason: Pain, moderate (4-7) Last Admin: 05/30/18 00:33 Dose: 400 mg Insulin Human Lispro (Humalog Med) 0 [facility]; Protocol Last Admin: 05/30/18 01:46 Dose: Not Given Ondansetron HCl (Zofran Inj) 4 mg IVP Q6H PRN PRN Reason: Nausea/Vomiting Last Admin: 05/30/18 00:28 Dose: 4 mg Oxycodone/Acetaminophen (Percocet 5/325 Mg Tab) 1 tab PO Q4H PRN PRN Reason: pain, mod Stop: 06/02/18 05:27 Last Admin: 05/30/18 05:42 Dose: 1 tab Pantoprazole Sodium (Protonix Inj) 40 mg IVP DAILY [facility] Last Admin: 05/29/18 09:35 Dose: 40 mg Senna/Docusate Sodium (Senokot S 50 Mg-8.6 Mg) 1 tab PO BID YOBANY Last Admin: 05/29/18 18:57 Dose: 1 tab - Labs Labs: 05/30/18 06:20 05/30/18 06:20 PT 16.0 SECONDS (9.4-12.5) H 05/24/18 06:15 INR 1.38 05/24/18 06:15 APTT 29.1 Seconds (25.1-36.5) 05/24/18 06:15 - Constitutional Appears: Well - Head Exam Head Exam: ATRAUMATIC, NORMAL INSPECTION, NORMOCEPHALIC - Eye Exam Eye Exam: EOMI, Normal appearance - Neck Exam Neck Exam: Normal Inspection - Respiratory Exam Respiratory Exam: Clear to Ausculation Bilateral, NORMAL BREATHING PATTERN - Cardiovascular Exam Cardiovascular Exam: REGULAR RHYTHM - GI/Abdominal Exam GI & Abdominal Exam: Soft, Tenderness (LLQ, RLQ, and epigastric tenderness to palpation, colostomy site c/d/i), Normal Bowel Sounds. absent: Guarding, Pulsatile Mass, Rebound - Extremities Exam Extremities Exam: Normal Capillary Refill - Neurological Exam Neurological Exam: Alert, Awake, Oriented x3 - Psychiatric Exam Psychiatric exam: Normal Affect, Normal Mood - Skin Skin Exam: Dry, Intact, Normal Color, Warm Assessment and Plan - Assessment and Plan (Free Text) Assessment: 57F w/ acute diverticulitis s/p Amaury's POD6 continue to monitor patient on her advancement to regular diet continue to monitor bowel function OOB to chair Encourage ambulation Analgesic and anti-emetics prn ordered x-ray abdomen due to pt's elevated pain and nausea last 24 h - f/u w/ results Further recommendations per Dr. Isiah Magana PGY1
[2018-05-30] MEDS: Enoxaparin 40 mg Syringe SC SCH (09:32)
[2018-05-30] MEDS: Docusate-Senna 50 mg-8.6 mg Tab PO SCH ×2 (09:33→17:23)
--- NOTE | 2018-05-30 13:44 | CP.PCM.PN ---
<Yevgeniy Doran - Last Filed: 05/30/18 13:36> Subjective - Date & Time of Evaluation Date of Evaluation: 05/30/18 Time of Evaluation: 13:36 - Subjective Subjective: Yevgeniy Doran DO PGY1 - Internal Medicine Tax Assessor - Medicine Progress Note Patient was seen and examined this morning at bedside Patient reports mild abdominal discomfort however has not had any emesis and is still able to tolerate a diet; Pt was advanced from liquid to HHD yesterday. Remainder 12 system ROS is otherwise negative. Objective - Vital Signs/Intake and Output Vital Signs (last 24 hours): Temp Pulse Resp BP Pulse Ox 99 F 67 20 119/78 97 05/30/18 06:00 05/30/18 06:00 05/30/18 06:00 05/30/18 06:00 05/30/18 06:00 - Medications Medications: Current Medications Acetaminophen (Tylenol 325mg Tab) 650 mg PO Q6H PRN PRN Reason: Pain, Mild (1-3) Last Admin: 05/29/18 05:34 Dose: 650 mg Enoxaparin Sodium (Lovenox) 40 mg SC DAILY [facility]; Protocol Last Admin: 05/30/18 09:32 Dose: 40 mg Hydralazine HCl (Apresoline) 10 mg IVP Q6H PRN PRN Reason: Systolic Blood Pressure Ibuprofen (Motrin Tab) 400 mg PO Q6H PRN PRN Reason: Pain, moderate (4-7) Last Admin: 05/30/18 00:33 Dose: 400 mg Insulin Human Lispro (Humalog Med) 0 units SC [facility]; Protocol Last Admin: 05/30/18 08:13 Dose: Not Given Ondansetron HCl (Zofran Inj) 4 mg IVP Q6H PRN PRN Reason: Nausea/Vomiting Last Admin: 05/30/18 00:28 Dose: 4 mg Oxycodone/Acetaminophen (Percocet 5/325 Mg Tab) 1 tab PO Q4H PRN PRN Reason: pain, mod Stop: 06/02/18 05:27 Last Admin: 05/30/18 12:38 Dose: 1 tab Pantoprazole Sodium (Protonix Inj) 40 mg IVP DAILY [facility] Last Admin: 05/30/18 09:32 Dose: 40 mg Senna/Docusate Sodium (Senokot S 50 Mg-8.6 Mg) 1 tab PO BID [facility]OBANY Last Admin: 05/30/18 09:33 Dose: 1 tab - Labs Labs: 05/30/18 06:20 05/30/18 06:20 PT 16.0 SECONDS (9.4-12.5) H 05/24/18 06:15 INR 1.38 05/24/18 06:15 APTT 29.1 Seconds (25.1-36.5) 05/24/18 06:15 - Additional Findings Additional findings: - Constitutional Appears: Well, Non-toxic - Head Exam Head Exam: ATRAUMATIC, NORMOCEPHALIC - Eye Exam Eye Exam: EOMI, Normal appearance - Neck Exam Neck Exam: Normal Inspection - Respiratory Exam Respiratory Exam: Clear to Auscultation Bilateral, NORMAL BREATHING PATTERN - Cardiovascular Exam Cardiovascular Exam: REGULAR RHYTHM - GI/Abdominal Exam GI & Abdominal Exam: Abdominal incision is healing well; Colostomy is intact w/o erythema/ exudate; No drainage or erythema appreciated around midline incision. - Extremities Exam Extremities Exam: Normal Inspection - Psychiatric Exam Psychiatric exam: Normal Affect, Normal Mood - Skin Skin Exam: Dry, Intact, Normal Color, Warm Assessment and Plan - Assessment and Plan (Free Text) Assessment: 57F w/ PMH HTN, DM2, [place] [facility] [place] w/ CC of abdominal pain found to have recurrent diverticulitis. Patient is s/p euceda's procedure POD#6 Plan: Diverticulitis s/p sigmoidectomy w/colostomy POD #6 - Afebrile, no leukocytosis - Percocet 1tan Q4H PRN - C/w Senokot - Toradol 30 mg IV Q6 - Zofran 4 mg IV Q6H PRN - Patient was started on HHD yesterday; will continue to monitor tolerance to diet - Surgery consulted. Dr. Joyce, appreciate reccs - ID consulted - Dr. Rajan - Osei stopped Normocytic Anemia- most likely 2/2 chronic disease -Hb stable; asymptomatic HTN - Hydralazine 10 mg IV Q6H PRN T2DM - Accuchecks ACHS - ISS DVT/GI PPX - Protonix 40 mg IV daily - Lovenox 40 mg SC daily Patient seen, case discussed and plan approved with attending Dr. Phil Doran DO PGY1 Internal Medicine Tax Assessor <Rae Villarreal - Last Filed: 05/30/18 17:27> Objective - Vital Signs/Intake and Output Vital Signs (last 24 hours): Temp Pulse Resp BP Pulse Ox 98.4 F 70 18 119/92 H 100 05/30/18 14:00 05/30/18 14:00 05/30/18 14:00 05/30/18 14:00 05/30/18 14:00 - Medications Medications: Current Medications Acetaminophen (Tylenol 325mg Tab) 650 mg PO Q6H PRN PRN Reason: Pain, Mild (1-3) Last Admin: 05/29/18 05:34 Dose: 650 mg Enoxaparin Sodium (Lovenox) 40 mg SC DAILY [facility]; Protocol Last Admin: 05/30/18 09:32 Dose: 40 mg Hydralazine HCl (Apresoline) 10 mg IVP Q6H PRN PRN Reason: Systolic Blood Pressure Ibuprofen (Motrin Tab) 400 mg PO Q6H PRN PRN Reason: Pain, moderate (4-7) Last Admin: 05/30/18 00:33 Dose: 400 mg Insulin Human Lispro (Humalog Med) 0 units SC [facility]; Protocol Last Admin: 05/30/18 12:00 Dose: Not Given Ondansetron HCl (Zofran Inj) 4 mg IVP Q6H PRN PRN Reason: Nausea/Vomiting Last Admin: 05/30/18 00:28 Dose: 4 mg Oxycodone/Acetaminophen (Percocet 5/325 Mg Tab) 1 tab PO Q4H PRN PRN Reason: pain, mod Stop: 06/02/18 05:27 Last Admin: 05/30/18 12:38 Dose: 1 tab Pantoprazole Sodium (Protonix Inj) 40 mg IVP DAILY [facility] Last Admin: 05/30/18 09:32 Dose: 40 mg Senna/Docusate Sodium (Senokot S 50 Mg-8.6 Mg) 1 tab PO BID [facility] Last Admin: 05/30/18 09:33 Dose: 1 tab - Labs Labs: 05/30/18 06:20 05/30/18 06:20 PT 16.0 SECONDS (9.4-12.5) H 05/24/18 06:15 INR 1.38 05/24/18 06:15 APTT 29.1 Seconds (25.1-36.5) 05/24/18 06:15 Attending/Attestation - Attestation I have personally seen and examined this patient.: Yes I have fully participated in the care of the patient.: Yes I have reviewed all pertinent clinical information, including history, physical exam and plan: Yes Notes (Text): 05/30/18 17:24 57 year old female with past medical history of hypertension, diabetes and recurrent diverticulitis presented with abdominal pain. She was found to have recurrent diverticulitis and seen by surgery. S/p Amaury's procedure with colostomy POD #6. Diet was advanced yesterday to solids and she began to complain of abdominal discomfort and nausea. Surgery is following and ordered abdominal xray today; will follow. Rae Villarreal MD Hospitalist.
--- NOTE | 2018-05-30 16:36 | RAD ---
Date of service: 05/30/2018 HISTORY: s/p troy's hernia repair-check for obstruction COMPARISON: None available. FINDINGS: BOWEL: Normal. No obstruction. No free air. BONES: Normal. OTHER FINDINGS: None. IMPRESSION: No active disease.
--- NOTE | 2018-05-30 18:45 | CP.PCM.PN ---
Subjective - Date & Time of Evaluation Date of Evaluation: 05/30/18 Time of Evaluation: 16:30 - Subjective Subjective: Infectious Disease Follow Up: May 30, 2018 57 yo female with PMHx of Diverticulosis, HTN, and DM who presents again with left lower quadrant pain starting a day prior to admission. The patient states that the pain has progressively worsened throughout the day. 5th hospitalization this year for abdominal pain and diverticulosis/diverticulitis. Patient was on Zosyn for antibiotic care. No additional issues. Patient with improvement in abdominal pain. Leary procedure performed. Tolerating liquid diet. No additional issues. Currently off of antibiotics. Advanced from liquid diet yesterday. Appears to be tolerating. Objective - Vital Signs/Intake and Output Vital Signs (last 24 hours): Temp Pulse Resp BP Pulse Ox 98.4 F 70 18 119/92 H 100 05/30/18 14:00 05/30/18 14:00 05/30/18 14:00 05/30/18 14:00 05/30/18 14:00 - Medications Medications: Current Medications Acetaminophen (Tylenol 325mg Tab) 650 mg PO Q6H PRN PRN Reason: Pain, Mild (1-3) Last Admin: 05/29/18 05:34 Dose: 650 mg Enoxaparin Sodium (Lovenox) 40 mg SC DAILY [facility]; Protocol Last Admin: 05/30/18 09:32 Dose: 40 mg Hydralazine HCl (Apresoline) 10 mg IVP Q6H PRN PRN Reason: Systolic Blood Pressure Ibuprofen (Motrin Tab) 400 mg PO Q6H PRN PRN Reason: Pain, moderate (4-7) Last Admin: 05/30/18 17:27 Dose: 400 mg Insulin Human Lispro (Humalog Med) 0 units SC [facility]; Protocol Last Admin: 05/30/18 17:00 Dose: Not Given Ondansetron HCl (Zofran Inj) 4 mg IVP Q6H PRN PRN Reason: Nausea/Vomiting Last Admin: 05/30/18 00:28 Dose: 4 mg Oxycodone/Acetaminophen (Percocet 5/325 Mg Tab) 1 tab PO Q4H PRN PRN Reason: pain, mod Stop: 06/02/18 05:27 Last Admin: 05/30/18 12:38 Dose: 1 tab Pantoprazole Sodium (Protonix Inj) 40 mg IVP DAILY [facility] Last Admin: 05/30/18 09:32 Dose: 40 mg Senna/Docusate Sodium (Senokot S 50 Mg-8.6 Mg) 1 tab PO BID [facility] Last Admin: 05/30/18 17:23 Dose: 1 tab - Labs Labs: 05/30/18 06:20 05/30/18 06:20 PT 16.0 SECONDS (9.4-12.5) H 05/24/18 06:15 INR 1.38 05/24/18 06:15 APTT 29.1 Seconds (25.1-36.5) 05/24/18 06:15 - Constitutional Appears: Non-toxic, No Acute Distress - Head Exam Head Exam: ATRAUMATIC, NORMOCEPHALIC - Eye Exam Eye Exam: EOMI, PERRL Pupil Exam: NORMAL ACCOMODATION, PERRL - ENT Exam ENT Exam: Mucous Membranes Moist, Normal External Ear Exam, TM's Normal Bilaterally - Neck Exam Neck Exam: Full ROM, Normal Inspection - Respiratory Exam Respiratory Exam: Clear to Ausculation Bilateral, NORMAL BREATHING PATTERN. absent: Rales, Rhonchi, Wheezes - Cardiovascular Exam Cardiovascular Exam: REGULAR RHYTHM, RRR, +S1, +S2 - GI/Abdominal Exam GI & Abdominal Exam: Soft, Normal Bowel Sounds. absent: Distended, Tenderness Additional comments: ostomy pink - Extremities Exam Extremities Exam: Full ROM, Normal Inspection - Neurological Exam Neurological Exam: Alert, Awake, CN II-XII Intact, Oriented x3 - Psychiatric Exam Psychiatric exam: Normal Affect, Normal Mood - Skin Skin Exam: Intact, Normal Color Additional comments: except abdominal incision dressing c/d/i Assessment and Plan - Assessment and Plan (Free Text) Assessment: 57 yo female with nausea, vomiting, and abdominal pain again that she rates as a 10 out of 10. The patient is still without fevers or leukocytosis at this time. CT Imaging studies showing acute sigmoid diverticulitis. Supportive care. Switch to Zosyn. The patient is feeling better today with significant improvement to abdominal pain. Surgery performed Leary procedure. If entire inflamed sigmoid colon/diverticulitis was removed, then stoppage of Zosyn is reasonable under SCIP protocols for improved surgical outcomes. If the bowel was noted to have other areas of inflamation, Zosyn should still be continued. Patient with Hypertension, NIDDM, and history of diverticulitis. Surgical evaluation. Multiple visits for the same issues. Leary procedure performed during this hospitalization. No leukocytosis. Patient appears comfortable. Advanced from liquid diet yesterday. Passing gas and having soft stool as of yet. No additional issues. Patient comfortable. Currently off of antibiotics. No leukocytosis. Thank you for allowing me to participate in the care of the patient, we will follow with you.
[2018-05-31 06:58] LABS: BASO # 0.02 K/mm3 (0.0-2.0); BASO % 0.4 % (0.0-3.0); EOS # 0.2 (0.0-0.7); EOS % 4.2 % (1.5-5.0); GRAN # 3.58 (1.4-6.5); GRAN % 64.6 % (50.0-68.0); HEMOGLOBIN 8.4 g/dL (12.0-16.0); LYMPH # 1.3 (1.2-3.4); LYMPH % 22.8 % (22.0-35.0); MEAN CELL VOLUME 81.1 fl (80.0-105.0); MEAN CORPUSCULAR HEMOGLOBIN 25.2 pg (25.0-35.0); MEAN CORPUSCULAR HGB CONC 31.1 g/dl (31.0-37.0); MEAN PLATELET VOLUME 8.7 fl (7.0-11.0); MONO # 0.4 (0.1-0.6); RBC 3.33 10^6/uL (3.5-6.1); RED CELL DISTRIBUTION WIDTH 15.3 % (11.5-14.5); WHITE BLOOD COUNT 5.5 10^3/uL (4.5-11.0)
[2018-05-31] MEDS: Insulin Lispro (humaLOG) MEDIUM Coverage SC SCH ×4 (07:25→21:58)
[2018-05-31 08:16] LABS: ALBUMIN 3.3 g/dL (3.0-4.8); ALT/SGPT 22 U/L (7-56); AST/SGOT 27 U/L (14-36); BLOOD UREA NITROGEN 7 mg/dL (7-21); CALCIUM 8.9 mg/dL (8.4-10.5); GFR NON-AFRICAN AMERICAN > 60
--- NOTE | 2018-05-31 10:13 | CP.PCM.PN ---
Subjective - Date & Time of Evaluation Date of Evaluation: 05/31/18 Time of Evaluation: 10:05 - Subjective Subjective: Yevgeniy Doran DO PGY1 - Internal Medicine Religious Education Coordinator - Surgical Progress Note Seen and examined at bedside this morning No acute events overnight Good ostomy output reported this morning Abdominal pain resolving Afebrile overnight; tolerating diet well. Objective - Vital Signs/Intake and Output Vital Signs (last 24 hours): Temp Pulse Resp BP Pulse Ox 98.9 F 64 20 127/81 95 05/31/18 07:00 05/31/18 07:00 05/31/18 07:00 05/31/18 07:00 05/31/18 07:00 Intake and Output: 05/31/18 05/31/18 06:59 18:59 Intake Total 240 Balance 240 - Medications Medications: Current Medications Acetaminophen (Tylenol 325mg Tab) 650 mg PO Q6H PRN PRN Reason: Pain, Mild (1-3) Last Admin: 05/29/18 05:34 Dose: 650 mg Enoxaparin Sodium (Lovenox) 40 mg SC DAILY [facility]; Protocol Last Admin: 05/30/18 09:32 Dose: 40 mg Hydralazine HCl (Apresoline) 10 mg IVP Q6H PRN PRN Reason: Systolic Blood Pressure Ibuprofen (Motrin Tab) 400 mg PO Q6H PRN PRN Reason: Pain, moderate (4-7) Last Admin: 05/31/18 09:20 Dose: 400 mg Insulin Human Lispro (Humalog Med) 0 units SC [facility]; Protocol Last Admin: 05/31/18 07:25 Dose: Not Given Ondansetron HCl (Zofran Inj) 4 mg IVP Q6H PRN PRN Reason: Nausea/Vomiting Last Admin: 05/30/18 00:28 Dose: 4 mg Pantoprazole Sodium (Protonix Inj) 40 mg IVP DAILY [facility] Last Admin: 05/30/18 09:32 Dose: 40 mg Senna/Docusate Sodium (Senokot S 50 Mg-8.6 Mg) 1 tab PO BID [facility] Last Admin: 05/30/18 17:23 Dose: 1 tab Tramadol HCl (Ultram) 50 mg PO TID PRN PRN Reason: Pain, moderate (4-7) - Labs Labs: 05/31/18 06:30 05/31/18 06:30 PT 16.0 SECONDS (9.4-12.5) H 05/24/18 06:15 INR 1.38 05/24/18 06:15 APTT 29.1 Seconds (25.1-36.5) 05/24/18 06:15 Physical Exam: - Constitutional Appears: Well, Non-toxic - Head Exam Head Exam: ATRAUMATIC, NORMOCEPHALIC - Eye Exam Eye Exam: EOMI, Normal appearance - Neck Exam Neck Exam: Normal Inspection - Respiratory Exam Respiratory Exam: Clear to Auscultation Bilateral, NORMAL BREATHING PATTERN - Cardiovascular Exam Cardiovascular Exam: REGULAR RHYTHM - GI/Abdominal Exam GI & Abdominal Exam: Abdominal incision is healing well; Colostomy is intact w/o erythema/ exudate; No drainage or erythema appreciated around midline incision. Ostomy is draining well; good stool output at this time - Extremities Exam Extremities Exam: Normal Inspection - Psychiatric Exam Psychiatric exam: Normal Affect, Normal Mood - Skin Skin Exam: Dry, Intact, Normal Color, Warm Assessment and Plan - Assessment and Plan (Free Text) Assessment: 57F w/ recurrent diverticulitis s/p Amaury's procedure POD#7 Plan: Continue monitoring tolerance to diet Continue monitoring bowel output OOB to chair/ Encourage ambulation Analgesic + Anti-Emetics PRN Patient is safe for discharge once she is comfortable w/ home analgesics and demonstrates comfort w/ ostomy management Further recommendations per Dr. Isiah Doran DO PGY1 - Internal Medicine Religious Education Coordinator - Surgical Progress Note for Dr. Joyce
[2018-05-31] MEDS: Docusate-Senna 50 mg-8.6 mg Tab PO SCH ×2 (10:20→17:36)
[2018-05-31] MEDS: Enoxaparin 40 mg Syringe SC SCH (10:20)
--- NOTE | 2018-05-31 13:31 | PN ---
DATE: 05/31/2018 SUBJECTIVE: Kiana Sales is doing well, passing gas and stool. We taught her how to use the colostomy, especially now that is retracted, it is still functioning and working well. We will saw her in my office in about a week. Sean Joyce MD
--- NOTE | 2018-05-31 17:29 | CP.PCM.PN ---
<Shayla Power - Last Filed: 05/31/18 17:26> Subjective - Date & Time of Evaluation Date of Evaluation: 05/31/18 Time of Evaluation: 17:27 - Subjective Subjective: Shayla Power, PGY-1, Internal Medicine Progress Note for Dr. Villarreal Patient seen and evaluated at bedside. Patient reports no overnight events. Patient has had adequate ostomy output and has minimal left lower quadrant pain. Patient denies n[place]asea, vomiting, constipation, diarrhea, dysuria, hematuria, and has had adequate urine output. 12-point ROS was negative except for what is mentioned above. Objective - Vital Signs/Intake and Output Vital Signs (last 24 hours): Temp Pulse Resp BP Pulse Ox 98.9 F 64 20 127/81 95 05/31/18 07:00 05/31/18 07:00 05/31/18 07:00 05/31/18 07:00 05/31/18 07:00 Intake and Output: 05/31/18 05/31/18 06:59 18:59 Intake Total 240 Balance 240 - Medications Medications: Current Medications Acetaminophen (Tylenol 325mg Tab) 650 mg PO Q6H PRN PRN Reason: Pain, Mild (1-3) Last Admin: 05/29/18 05:34 Dose: 650 mg Enoxaparin Sodium (Lovenox) 40 mg SC DAILY [facility]; Protocol Last Admin: 05/31/18 10:20 Dose: 40 mg Hydralazine HCl (Apresoline) 10 mg IVP Q6H PRN PRN Reason: Systolic Blood Pressure Ibuprofen (Motrin Tab) 400 mg PO Q6H PRN PRN Reason: Pain, moderate (4-7) Last Admin: 05/31/18 09:20 Dose: 400 mg Insulin Human Lispro (Humalog Med) 0 units SC [facility]; Protocol Last Admin: 05/31/18 16:48 Dose: Not Given Ondansetron HCl (Zofran Inj) 4 mg IVP Q6H PRN PRN Reason: Nausea/Vomiting Last Admin: 05/30/18 00:28 Dose: 4 mg Pantoprazole Sodium (Protonix Inj) 40 mg IVP DAILY [facility] Last Admin: 05/31/18 10:20 Dose: 40 mg Senna/Docusate Sodium (Senokot S 50 Mg-8.6 Mg) 1 tab PO BID [facility] Last Admin: 05/31/18 10:20 Dose: 1 tab Tramadol HCl (Ultram) 50 mg PO TID PRN PRN Reason: Pain, severe (8-10) - Labs Labs: 05/31/18 06:30 05/31/18 06:30 PT 16.0 SECONDS (9.4-12.5) H 05/24/18 06:15 INR 1.38 05/24/18 06:15 APTT 29.1 Seconds (25.1-36.5) 05/24/18 06:15 - Constitutional Appears: Well, Non-toxic - Head Exam Head Exam: ATRAUMATIC, NORMAL INSPECTION, NORMOCEPHALIC - Eye Exam Eye Exam: EOMI Pupil Exam: PERRL - Respiratory Exam Respiratory Exam: Clear to Ausculation Bilateral, NORMAL BREATHING PATTERN - GI/Abdominal Exam GI & Abdominal Exam: Soft, Tenderness (left lower quadrant), Normal Bowel Sounds. absent: Guarding - Extremities Exam Extremities Exam: Full ROM - Neurological Exam Neurological Exam: Alert, Awake, CN II-XII Intact, Oriented x3 Assessment and Plan - Assessment and Plan (Free Text) Assessment: 57 year old female with past medical history of hypertension, diabetes mellitus type II, diverticulosis presents with left lower quadrant abdominal pain. Patient was diagnosed with diverticulitis and had a Amaury's procedure with an ostomy done on 05/26. Patient is postoperative day 4. Plan: Diverticulitis -Patient is postoperative day 4 for Amaury's procedure. -Abdominal X ray: no acute disease -ID recommends zosyn for patient. -Continue with ultram, ibuprofen, and tylenol for pain. -Continue with incentive spirometry. -Zofran PRN for nausea. -As per surgery, patient was given ostomy teaching today and should be ready for discharge by tomorrow. Hypertension -Blood pressure today was 127/81. -Continue with hydralazine 10 mg Q6 PRN Normocytic Anemia -Patient has had anemia since Amaury's procedure and has been stable around 8.4. -Follow up CBC in the morning. Diabetes mellitus type II -Heart healthy and consistent carbohydrate diet -Continue with medium sliding scale insulin. DVT prophylaxis: lovenox 40 mg daily GI prophylaxis: protonix 40 mg daily Patient plan discussed with Dr. Villarreal. <Rae Villarreal - Last Filed: 06/01/18 07:31> Objective - Vital Signs/Intake and Output Vital Signs (last 24 hours): Temp Pulse Resp BP Pulse Ox 97.9 F 88 18 103/52 L 93 L 05/31/18 21:57 05/31/18 21:57 05/31/18 21:57 05/31/18 21:57 05/31/18 21:57 Intake and Output: 06/01/18 06/01/18 06:59 18:59 Intake Total 800 Balance 800 - Medications Medications: Current Medications Acetaminophen (Tylenol 325mg Tab) 650 mg PO Q6H PRN PRN Reason: Pain, Mild (1-3) Last Admin: 05/29/18 05:34 Dose: 650 mg Enoxaparin Sodium (Lovenox) 40 mg SC DAILY [facility]; Protocol Last Admin: 05/31/18 10:20 Dose: 40 mg Hydralazine HCl (Apresoline) 10 mg IVP Q6H PRN PRN Reason: Systolic Blood Pressure Ibuprofen (Motrin Tab) 400 mg PO Q6H PRN PRN Reason: Pain, moderate (4-7) Last Admin: 05/31/18 17:15 Dose: 400 mg Insulin Human Lispro (Humalog Med) 0 units SC [facility]; Protocol Last Admin: 05/31/18 21:58 Dose: Not Given Ondansetron HCl (Zofran Inj) 4 mg IVP Q6H PRN PRN Reason: Nausea/Vomiting Last Admin: 05/30/18 00:28 Dose: 4 mg Pantoprazole Sodium (Protonix Inj) 40 mg IVP DAILY [facility] Last Admin: 05/31/18 10:20 Dose: 40 mg Senna/Docusate Sodium (Senokot S 50 Mg-8.6 Mg) 1 tab PO BID [facility] Last Admin: 05/31/18 17:36 Dose: Not Given Tramadol HCl (Ultram) 50 mg PO TID PRN PRN Reason: Pain, severe (8-10) Last Admin: 05/31/18 23:03 Dose: 50 mg - Labs Labs: 06/01/18 06:30 05/31/18 06:30 PT 16.0 SECONDS (9.4-12.5) H 05/24/18 06:15 INR 1.38 05/24/18 06:15 APTT 29.1 Seconds (25.1-36.5) 05/24/18 06:15 Attending/Attestation - Attestation I have personally seen and examined this patient.: Yes I have fully participated in the care of the patient.: Yes I have reviewed all pertinent clinical information, including history, physical exam and plan: Yes Notes (Text): 05/31/18 57 year old female with past medical history of hypertension, diabetes and recurrent diverticulitis presented with abdominal pain. She was found to have recurrent diverticulitis and seen by surgery. S/p H artmann's procedure with colostomy POD #7. She is beginning to tolerate diet now and abdominal discomfort and nausea are improving. Surgery is following for ostomy teaching today and possible d/c planning tomorrow. Rae Villarreal MD Hospitalist.
--- NOTE | 2018-05-31 18:20 | CP.PCM.PN ---
Subjective - Date & Time of Evaluation Date of Evaluation: 05/31/18 Time of Evaluation: 16:00 - Subjective Subjective: Infectious Disease Follow Up: May 31, 2018 57 yo female with PMHx of Diverticulosis, HTN, and DM who presents again with left lower quadrant pain starting a day prior to admission. The patient states that the pain has progressively worsened throughout the day. 5th hospitalization this year for abdominal pain and diverticulosis/diverticulitis. Patient was on Zosyn for antibiotic care. No additional issues. Patient with improvement in abdominal pain. Leary procedure performed. Tolerating diet. No additional issues. Currently off of antibiotics. Appears to be tolerating diet. No leukocytosis. Objective - Vital Signs/Intake and Output Vital Signs (last 24 hours): Temp Pulse Resp BP Pulse Ox 98.7 F 85 20 133/76 98 05/31/18 14:00 05/31/18 14:00 05/31/18 14:00 05/31/18 14:00 05/31/18 14:00 Intake and Output: 05/31/18 05/31/18 06:59 18:59 Intake Total 240 Balance 240 - Medications Medications: Current Medications Acetaminophen (Tylenol 325mg Tab) 650 mg PO Q6H PRN PRN Reason: Pain, Mild (1-3) Last Admin: 05/29/18 05:34 Dose: 650 mg Enoxaparin Sodium (Lovenox) 40 mg SC DAILY [facility]; Protocol Last Admin: 05/31/18 10:20 Dose: 40 mg Hydralazine HCl (Apresoline) 10 mg IVP Q6H PRN PRN Reason: Systolic Blood Pressure Ibuprofen (Motrin Tab) 400 mg PO Q6H PRN PRN Reason: Pain, moderate (4-7) Last Admin: 05/31/18 17:15 Dose: 400 mg Insulin Human Lispro (Humalog Med) 0 units SC [facility]; Protocol Last Admin: 05/31/18 16:48 Dose: Not Given Ondansetron HCl (Zofran Inj) 4 mg IVP Q6H PRN PRN Reason: Nausea/Vomiting Last Admin: 05/30/18 00:28 Dose: 4 mg Pantoprazole Sodium (Protonix Inj) 40 mg IVP DAILY [facility] Last Admin: 05/31/18 10:20 Dose: 40 mg Senna/Docusate Sodium (Senokot S 50 Mg-8.6 Mg) 1 tab PO BID [facility] Last Admin: 05/31/18 17:36 Dose: Not Given Tramadol HCl (Ultram) 50 mg PO TID PRN PRN Reason: Pain, severe (8-10) - Labs Labs: 05/31/18 06:30 05/31/18 06:30 PT 16.0 SECONDS (9.4-12.5) H 05/24/18 06:15 INR 1.38 05/24/18 06:15 APTT 29.1 Seconds (25.1-36.5) 05/24/18 06:15 - Constitutional Appears: Non-toxic, No Acute Distress, Chronically Ill - Head Exam Head Exam: ATRAUMATIC, NORMOCEPHALIC - Eye Exam Eye Exam: EOMI, PERRL Pupil Exam: NORMAL ACCOMODATION, PERRL - ENT Exam ENT Exam: Mucous Membranes Moist, Normal External Ear Exam, TM's Normal Bila terally - Neck Exam Neck Exam: Full ROM, Normal Inspection - Respiratory Exam Respiratory Exam: Clear to Ausculation Bilateral, NORMAL BREATHING PATTERN. absent: Rales, Rhonchi, Wheezes - Cardiovascular Exam Cardiovascular Exam: REGULAR RHYTHM, RRR, +S1, +S2 - GI/Abdominal Exam GI & Abdominal Exam: Soft, Normal Bowel Sounds. absent: Distended, Tenderness Additional comments: ostomy pink - Extremities Exam Extremities Exam: Full ROM, Normal Inspection - Neurological Exam Neurological Exam: Alert, Awake, CN II-XII Intact, Oriented x3 - Psychiatric Exam Psychiatric exam: Normal Affect, Normal Mood - Skin Skin Exam: Intact, Normal Color Additional comments: except abdominal incision dressing c/d/i Assessment and Plan - Assessment and Plan (Free Text) Assessment: 57 yo female with nausea, vomiting, and abdominal pain again that she rates as a 10 out of 10. The patient is still without fevers or leukocytosis at this time. CT Imaging studies showing acute sigmoid diverticulitis. Supportive care. Switch to Zosyn. The patient is feeling better today with significant improvement to abdominal pain. Surgery performed Leary procedure. If entire inflamed sigmoid colon/diverticulitis was removed, then stoppage of Zosyn is reasonable under SCIP protocols for improved surgical outcomes. If the bowel was noted to have other areas of inflamation, Zosyn should still be continued. Patient with Hypertension, NIDDM, and history of diverticulitis. Surgical evaluation. Multiple visits for the same issues. Leary procedure performed during this hospitalization. No leukocytosis. Patient appears comfortable. Advanced from liquid diet yesterday. Passing gas and having soft stool as of yet. No additional issues. Patient comfortable. Currently off of antibiotics. No leukocytosis. Slowly improving. Thank you for allowing me to participate in the care of the patient, we will follow with you.
[2018-06-01 07:06] LABS: BASO # 0.01 K/mm3 (0.0-2.0); BASO % 0.2 % (0.0-3.0); EOS # 0.2 (0.0-0.7); EOS % 3.8 % (1.5-5.0); GRAN # 3.7 (1.4-6.5); GRAN % 60.3 % (50.0-68.0); HEMOGLOBIN 8.5 g/dL (12.0-16.0); LYMPH # 1.7 (1.2-3.4); LYMPH % 27.7 % (22.0-35.0); MEAN CELL VOLUME 82.2 fl (80.0-105.0); MEAN CORPUSCULAR HEMOGLOBIN 25.2 pg (25.0-35.0); MEAN CORPUSCULAR HGB CONC 30.7 g/dl (31.0-37.0); MEAN PLATELET VOLUME 8.9 fl (7.0-11.0); MONO # 0.5 (0.1-0.6); RBC 3.37 10^6/uL (3.5-6.1); RED CELL DISTRIBUTION WIDTH 15.5 % (11.5-14.5); WHITE BLOOD COUNT 6.1 10^3/uL (4.5-11.0)
[2018-06-01 07:40] LABS: ALBUMIN 3.3 g/dL (3.0-4.8); ALT/SGPT 23 U/L (7-56); AST/SGOT 26 U/L (14-36); BLOOD UREA NITROGEN 9 mg/dL (7-21); GFR NON-AFRICAN AMERICAN > 60
[2018-06-01] MEDS: Insulin Lispro (humaLOG) MEDIUM Coverage SC SCH ×3 (07:56→19:06)
[2018-06-01] MEDS: Docusate-Senna 50 mg-8.6 mg Tab PO SCH ×2 (11:07→17:47)
[2018-06-01] MEDS: Enoxaparin 40 mg Syringe SC SCH (11:08)
--- NOTE | 2018-06-01 11:34 | CP.PCM.PN ---
Subjective - Date & Time of Evaluation Date of Evaluation: 06/01/18 Time of Evaluation: 11:31 - Subjective Subjective: Yevgeniy Doran DO PGY1 - Surgical Progress Note Patient was seen and examined at bedside this morning. Patient reported some pains overnight however did get relief from PO pain rx. Ostomy is functioning and intact; Ostomy care was communicated to patient. Afebrile, Tolerates diet well, Remainder 12 system ROS negative Objective - Vital Signs/Intake and Output Vital Signs (last 24 hours): Temp Pulse Resp BP Pulse Ox 98 F 60 20 112/69 97 06/01/18 06:00 06/01/18 06:00 06/01/18 06:00 06/01/18 06:00 06/01/18 06:00 Intake and Output: 06/01/18 06/01/18 06:59 18:59 Intake Total 800 Balance 800 - Medications Medications: Current Medications Acetaminophen (Tylenol 325mg Tab) 650 mg PO Q6H PRN PRN Reason: Pain, Mild (1-3) Last Admin: 05/29/18 05:34 Dose: 650 mg Enoxaparin Sodium (Lovenox) 40 mg SC DAILY [facility]; Protocol Last Admin: 05/31/18 10:20 Dose: 40 mg Hydralazine HCl (Apresoline) 10 mg IVP Q6H PRN PRN Reason: Systolic Blood Pressure Ibuprofen (Motrin Tab) 400 mg PO Q6H PRN PRN Reason: Pain, moderate (4-7) Last Admin: 05/31/18 17:15 Dose: 400 mg Insulin Human Lispro (Humalog Med) 0 units SC [facility]; Protocol Last Admin: 06/01/18 07:56 Dose: Not Given Ondansetron HCl (Zofran Inj) 4 mg IVP Q6H PRN PRN Reason: Nausea/Vomiting Last Admin: 05/30/18 00:28 Dose: 4 mg Pantoprazole Sodium (Protonix Inj) 40 mg IVP DAILY [facility] Last Admin: 05/31/18 10:20 Dose: 40 mg Senna/Docusate Sodium (Senokot S 50 Mg-8.6 Mg) 1 tab PO BID [facility] Last Admin: 05/31/18 17:36 Dose: Not Given Tramadol HCl (Ultram) 50 mg PO TID PRN PRN Reason: Pain, severe (8-10) Last Admin: 06/01/18 07:53 Dose: 50 mg - Labs Labs: 06/01/18 06:30 06/01/18 06:30 PT 16.0 SECONDS (9.4-12.5) H 05/24/18 06:15 INR 1.38 05/24/18 06:15 APTT 29.1 Seconds (25.1-36.5) 05/24/18 06:15 Physical Exam: - Constitutional Appears: Well, Non-toxic - Head Exam Head Exam: ATRAUMATIC, NORMOCEPHALIC - Eye Exam Eye Exam: EOMI, Normal appearance - Neck Exam Neck Exam: Normal Inspection - Respiratory Exam Respiratory Exam: Clear to Auscultation Bilateral, NORMAL BREATHING PATTERN - Cardiovascular Exam Cardiovascular Exam: REGULAR RHYTHM - GI/Abdominal Exam GI & Abdominal Exam: Abdominal incision is healing well; Colostomy is intact w/o erythema/ exudate; No drainage or erythema appreciated around midline incision. Ostomy is draining well; good stool output at this time - Extremities Exam Extremities Exam: Normal Inspection - Psychiatric Exam Psychiatric exam: Normal Affect, Normal Mood - Skin Skin Exam: Dry, Intact, Normal Color, Warm Assessment and Plan - Assessment and Plan (Free Text) Assessment: 57F w/ recurrent diverticulitis s/p Amaury's procedure POD#8 Plan: Continue monitoring tolerance to diet Continue monitoring bowel output OOB to chair/ Encourage ambulation Analgesic + Anti-Emetics PRN Patient is safe for discharge once she is comfortable w/ home analgesics and demonstrates comfort w/ ostomy management Further recommendations per Dr. Isiah Doran DO PGY1 - Internal Medicine [employer] - Surgical Progress Note for Dr. Joyce
[2018-06-01 13:45] VITALS: BP 117/73; PULSE 67; RESP 18; TEMP 98.4; O2SAT 100
--- NOTE | 2018-06-01 15:01 | CP.PCM.PN ---
Subjective - Date & Time of Evaluation Date of Evaluation: 06/01/18 Time of Evaluation: 14:30 - Subjective Subjective: Infectious Disease Follow Up: June 01, 2018 57 yo female with PMHx of Diverticulosis, HTN, and DM who presents again with left lower quadrant pain starting a day prior to admission. The patient states that the pain has progressively worsened throughout the day. 5th hospitalization this year for abdominal pain and diverticulosis/diverticulitis. Patient was on Zosyn for antibiotic care. No additional issues. Patient with improvement in abdominal pain. Leary procedure performed. Tolerating diet. No additional issues. Currently off of antibiotics. Appears to be tolerating diet. No leukocytosis. Objective - Vital Signs/Intake and Output Vital Signs (last 24 hours): Temp Pulse Resp BP Pulse Ox 98.4 F 67 18 117/73 100 06/01/18 13:44 06/01/18 13:44 06/01/18 13:44 06/01/18 13:44 06/01/18 13:44 Intake and Output: 06/01/18 06/01/18 06:59 18:59 Intake Total 800 Balance 800 - Medications Medications: Current Medications Acetaminophen (Tylenol 325mg Tab) 650 mg PO Q6H PRN PRN Reason: Pain, Mild (1-3) Last Admin: 05/29/18 05:34 Dose: 650 mg Enoxaparin Sodium (Lovenox) 40 mg SC DAILY [facility]; Protocol Last Admin: 06/01/18 11:08 Dose: 40 mg Hydralazine HCl (Apresoline) 10 mg IVP Q6H PRN PRN Reason: Systolic Blood Pressure Ibuprofen (Motrin Tab) 400 mg PO Q6H PRN PRN Reason: Pain, moderate (4-7) Last Admin: 05/31/18 17:15 Dose: 400 mg Insulin Human Lispro (Humalog Med) 0 units SC [facility]; Protocol Last Admin: 06/01/18 12:06 Dose: Not Given Ondansetron HCl (Zofran Inj) 4 mg IVP Q6H PRN PRN Reason: Nausea/Vomiting Last Admin: 05/30/18 00:28 Dose: 4 mg Pantoprazole Sodium (Protonix Inj) 40 mg IVP DAILY [facility] Last Admin: 06/01/18 11:07 Dose: 40 mg Senna/Docusate Sodium (Senokot S 50 Mg-8.6 Mg) 1 tab PO BID [facility] Last Admin: 06/01/18 11:07 Dose: 1 tab Tramadol HCl (Ultram) 50 mg PO TID PRN PRN Reason: Pain, severe (8-10) Last Admin: 06/01/18 14:10 Dose: 50 mg - Labs Labs: 06/01/18 06:30 06/01/18 06:30 PT 16.0 SECONDS (9.4-12.5) H 05/24/18 06:15 INR 1.38 05/24/18 06:15 APTT 29.1 Seconds (25.1-36.5) 05/24/18 06:15 - Constitutional Appears: Non-toxic, No Acute Distress, Chronically Ill - Head Exam Head Exam: ATRAUMATIC, NORMOCEPHALIC - Eye Exam Eye Exam: EOMI, PERRL Pupil Exam: NORMAL ACCOMODATION, PERRL - ENT Exam ENT Exam: Mucous Membranes Moist, Normal External Ear Exam, TM's Normal Bilaterally - Neck Exam Neck Exam: Full ROM, Normal Inspection - Respiratory Exam Respiratory Exam: Clear to Ausculation Bilateral, NORMAL BREATHING PATTERN. absent: Rales, Rhonchi, Wheezes - Cardiovascular Exam Cardiovascular Exam: REGULAR RHYTHM, RRR, +S1, +S2 - GI/Abdominal Exam GI & Abdominal Exam: Soft, Normal Bowel Sounds. absent: Distended, Tenderness Additional comments: ostomy pink - Extremities Exam Extremities Exam: Full ROM, Normal Inspection - Neurological Exam Neurological Exam: Alert, Awake, CN II-XII Intact, Oriented x3 - Psychiatric Exam Psychiatric exam: Normal Affect, Normal Mood - Skin Skin Exam: Normal Color Additional comments: except abdominal incision dressing c/d/i Assessment and Plan - Assessment and Plan (Free Text) Assessment: 57 yo female with nausea, vomiting, and abdominal pain again that she rates as a 10 out of 10. The patient is still without fevers or leukocytosis at this time. CT Imaging studies showing acute sigmoid diverticulitis. Supportive care. Switch to Zosyn. The patient is feeling better today with significant improvement to abdominal pain. Surgery performed Leary procedure. If entire inflamed sigmoid colon/diverticulitis was removed, then stoppage of Zosyn is reasonable under SCIP protocols for improved surgical outcomes. If the bowel was noted to have other areas of inflamation, Zosyn should still be continued. Patient with Hypertension, NIDDM, and history of diverticulitis. Surgical evaluation. Multiple visits for the same issues. Leary procedure performed during this hospitalization. No leukocytosis. Patient appears comfortable. Advanced from liquid diet yesterday. Passing gas and producing soft stool. No additional issues. Patient c omfortable. Currently off of antibiotics. No leukocytosis. Slowly improving. Thank you for allowing me to participate in the care of the patient, we will follow with you.
[2018-06-01] MEDS ORDERED: Pneumococcal 23-Valent Vaccine IM ONE (17:24)
--- NOTE | 2018-06-01 19:38 | CP.PCM.DIS ---
<Shayla Power - Last Filed: 06/01/18 19:29> Provider - Provider Date of Admission: 05/21/18 18:19 Attending physician: Rae Villarreal MD Primary care physician: Dr. Miller Consults: Infectious Disease Consult Routine Comment: Consulting Provider: Abhay Rajan Consulting Physician: Abhay Rajan Reason for Consult: recurrent diverticulitis Consult [Physician Consult] Routine Comment: Consulting Provider: Sean Joyce Consulting Physician: Sean Joyce Reason for Consult: recurrent diverticulitis Nursing Referral for Wound Care Routine Comment: Physician Instructions: Reason For Exam: ostomy training Time Spent in preparation of Discharge (in minutes): 60 Hospital Course - Lab Results Lab Results: Most Recent Lab Values WBC 6.1 10^3/uL (4.5-11.0) 06/01/18 06:30 RBC 3.37 10^6/uL (3.5-6.1) L 06/01/18 06:30 Hgb 8.5 g/dL (12.0-16.0) L 06/01/18 06:30 Hct 27.7 % (36.0-48.0) L 06/01/18 06:30 MCV 82.2 fl (80.0-105.0) 06/01/18 06:30 MCH 25.2 pg (25.0-35.0) 06/01/18 06:30 MCHC 30.7 g/dl (31.0-37.0) L 06/01/18 06:30 RDW 15.5 % (11.5-14.5) H 06/01/18 06:30 Plt Count 307 10^3/uL (120.0-450.0) 06/01/18 06:30 MPV 8.9 fl (7.0-11.0) 06/01/18 06:30 Gran % 60.3 % (50.0-68.0) 06/01/18 06:30 Lymph % (Auto) 27.7 % (22.0-35.0) 06/01/18 06:30 Bee % (Auto) 8.0 % (1.0-6.0) H 06/01/18 06:30 Eos % (Auto) 3.8 % (1.5-5.0) 06/01/18 06:30 Baso % (Auto) 0.2 % (0.0-3.0) 06/01/18 06:30 Gran # 3.70 (1.4-6.5) 06/01/18 06:30 Lymph # (Auto) 1.7 (1.2-3.4) 06/01/18 06:30 Bee # (Auto) 0.5 (0.1-0.6) 06/01/18 06:30 Eos # (Auto) 0.2 (0.0-0.7) 06/01/18 06:30 Baso # (Auto) 0.01 K/mm3 (0.0-2.0) 06/01/18 06:30 Retic Count 2.34 % (0.5-1.5) H 05/29/18 06:30 PT 16.0 SECONDS (9.4-12.5) H 05/24/18 06:15 INR 1.38 05/24/18 06:15 APTT 29.1 Seconds (25.1-36.5) 05/24/18 06:15 pCO2 42 mm/Hg (35-45) 05/25/18 14:25 pO2 101.0 mm/Hg (80-100) H 05/25/18 14:25 HCO3 23.2 mmol/L (21-28) 05/25/18 14:25 ABG pH 7.35 (7.35-7.45) 05/25/18 14:25 ABG Total CO2 24.5 mmol.L (22-28) 05/25/18 14:25 ABG O2 Saturation 99.5 % (95-98) H 05/25/18 14:25 ABG O2 Content 12.8 ML/dl (15-23) L 05/25/18 14:25 ABG Base Excess -2.3 mmol/L (-2.0-3.0) L 05/25/18 14:25 ABG Hemoglobin 9.3 g/dL (11.7-17.4) L 05/25/18 14:25 ABG Carboxyhemoglobin 2.4 % (0.5-1.5) H 05/25/18 14:25 POC ABG HHb (Measured) 0.5 % (0-5) 05/25/18 14:25 ABG Methemoglobin 0.6 % (0.0-3.0) 05/25/18 14:25 ABG O2 Capacity 12.9 mL/dl (16-24) L 05/25/18 14:25 Hgb O2 Saturation 96.5 % (95.0-98.0) 05/25/18 14:25 FiO2 32.0 % 05/25/18 14:25 Sodium 140 mmol/L (132-148) 06/01/18 06:30 Potassium 4.1 mmol/L (3.6-5.0) 06/01/18 06:30 Chloride 103 mmol/L (98-107) 06/01/18 06:30 Carbon Dioxide 31 mmol/L (21-33) 06/01/18 06:30 Anion Gap 10 (10-20) 06/01/18 06:30 BUN 9 mg/dL (7-21) 06/01/18 06:30 Creatinine 0.7 mg/dl (0.7-1.2) 06/01/18 06:30 Est GFR ( Amer) > 60 06/01/18 06:30 Est GFR (Non-Af Amer) > 60 06/01/18 06:30 POC Glucose (mg/dL) 130 mg/dL (65-110) H 06/01/18 16:03 Random Glucose 119 mg/dL (70-110) H 06/01/18 06:30 Calcium 9.0 mg/dL (8.4-10.5) 06/01/18 06:30 Phosphorus 2.9 mg/dL (2.5-4.5) 05/27/18 06:20 Magnesium 1.9 mg/dL (1.7-2.2) 05/27/18 06:20 Iron 27 ug/dL (45-180) L 05/29/18 06:30 TIBC 238 ug/dL (265-497) L 05/29/18 06:30 % Saturation 11 % (20-55) L 05/29/18 06:30 Ferritin 83.5 ng/mL 05/29/18 06:30 Total Bilirubin 0.4 mg/dL (0.2-1.3) 06/01/18 06:30 AST 26 U/L (14-36) 06/01/18 06:30 ALT 23 U/L (7-56) 06/01/18 06:30 Alkaline Phosphatase 81 U/L (38-126) 06/01/18 06:30 Lactate Dehydrogenase 350 U/L (333-699) 05/21/18 15:03 Total Creatine Kinase 245 U/L (35-230) H 05/21/18 15:03 CK-MB (CK-2) 0.5 ng/mL (0.0-3.6) 05/21/18 15:03 CK-MB (CK-2) % Cancelled 05/21/18 15:03 Troponin I < 0.01 ng/mL 05/21/18 15:03 Total Protein 6.6 g/dL (5.8-8.3) 06/01/18 06:30 Albumin 3.3 g/dL (3.0-4.8) 06/01/18 06:30 Globulin 3.3 gm/dL 06/01/18 06:30 Albumin/Globulin Ratio 1.0 (1.1-1.8) L 06/01/18 06:30 Amylase 83 U/L (35-125) 05/21/18 15:03 Lipase 96 U/L (23-300) 05/21/18 15:03 Urine Color Yellow (YELLOW) 05/21/18 17:22 Urine Appearance Clear (CLEAR) 05/21/18 17:22 Urine pH 8.5 (4.7-8.0) 05/21/18 17:22 Ur Specific Partridge 1.010 (1.005-1.035) 05/21/18 17:22 Urine Protein Negative mg/dL (<30 mg/dL) 05/21/18 17:22 Urine Glucose (UA) Negative mg/dL (NEGATIVE) 05/21/18 17:22 Urine Ketones Negative mg/dL (NEGATIVE) 05/21/18 17:22 Urine Blood Negative (NEGATIVE) 05/21/18 17:22 Urine Nitrate Negative (NEGATIVE) 05/21/18 17:22 Urine Bilirubin Negative (NEGATIVE) 05/21/18 17:22 Urine Urobilinogen 0.2 E.U./dL (<1 E.U./dL) 05/21/18 17:22 Ur Leukocyte Esterase Negative Lynn/uL (NEGATIVE) 05/21/18 17:22 Blood Type A POSITIVE 05/24/18 06:15 Blood Type Confirm A POSITIVE 05/24/18 15:58 Antibody Screen Negative 05/24/18 06:15 Crossmatch See Detail 05/24/18 06:15 BBK History Checked No verified bt 05/24/18 06:15 - Hospital Course Hospital Course: Shayal Power, PGY-1, Discharge Summary for Dr. Villarreal. 57 year old female with past medical history of hypertension, diabetes mellitus type II, diverticulosis presents with left lower quadrant abdominal pain. CT of abdomen and pelvis with contrast showed acute sigmoid diverticulitis. She was given ceftriaxone and metronidazole for antibiotic coverage and morphine and di laudid for pain management. ID and general surgery were consulted for this patient. As per ID, she was switched to zosyn on day 2. On 05/24/18, patient underwent cystoscopy with bilateral ureteral stent placement, Amaury's procedure with hernia repair and ostomy was placed. She tolerated the procedures well. On post op day 5, patient had complaints of abdominal discomfort for which an abdominal x-ray was ordered and found to be normal. Patient's pain medication was switched to tramadol and was given education for management of her ostomy prior to discharge. Patient should follow up with Dr. Miller, PCP, and Dr. Joyce, General Surgery within one week of discharge for follow up appointment. Ostomy teaching was completed for the patient and should continue to change ostomy as instructed by surgical team. Continue to take home medications and take tramadol 50 mg TID as needed for pain for 5 days. If abdominal pain returns or condition worsens, please return to the emergency department for further evaluation. This is a brief summary of the events that took place during her hospital stay. For further details, please refer to prior notes. - Date & Time of H&P Date of H&P: 06/01/18 Time of H&P: 19:30 Discharge Exam - Head Exam Head Exam: ATRAUMATIC, NORMOCEPHALIC - Eye Exam Eye Exam: EOMI Pupil Exam: PERRL - Respiratory Exam Respiratory Exam: Clear to PA & Lateral, UNREMARKABLE - Cardiovascular Exam Cardiovascular Exam: REGULAR RHYTHM - GI/Abdominal Exam GI & Abdominal Exam: Normal Bowel Sounds, Soft, Tenderness. absent: Distended Additional comments: ostomy in place and clear. incision clean and intact, nonerythematous - Neurological Exam Neurological exam: Alert, CN II-XII Intact, Oriented x3 Discharge Plan - Discharge Medications Prescriptions: traMADol [Ultram] 50 mg PO TID PRN #15 tab PRN Reason: Pain, Severe (8-10) - Follow Up Plan Condition: FAIR Disposition: HOME/ ROUTINE Instructions: Diverticulitis (DC), Ostomy Reversal, Colostomy Care, Ileostomy Diet Additional Instructions: 1.Please follow up with your PMD and surgeon Dr. Joyce within 1 week after discharge. 2.Please take care of colostomy as instructed by the surgical team. 3.If abdominal pain returns, do not hesitate to go to the nearest ED for further evaluation. Referrals: Sean Joyce MD [Staff Provider] - Silvia Miller MD [Family Provider] - <Rae Villarreal - Last Filed: 06/02/18 07:02> Provider - Provider Date of Admission: 05/21/18 18:19 Attending physician: Rae Villarreal MD Consults: 05/21/18 19:31 Infectious Disease Consult Routine Comment: Consulting Provider: Abhay Rajan Consulting Physician: Abhay Rajan Reason for Consult: recurrent diverticulitis 05/22/18 07:16 Consult [Physician Consult] Routine Comment: Consulting Provider: Sean Joyce Consulting Physician: Sean Joyce Reason for Consult: recurrent diverticulitis 05/29/18 12:17 Nursing Referral for Wound Care Routine Comment: Physician Instructions: Reason For Exam: ostomy training Hospital Course - Lab Results Lab Results: Most Recent Lab Values WBC 6.1 10^3/uL (4.5-11.0) 06/01/18 06:30 RBC 3.37 10^6/uL (3.5-6.1) L 06/01/18 06:30 Hgb 8.5 g/dL (12.0-16.0) L 06/01/18 06:30 Hct 27.7 % (36.0-48.0) L 06/01/18 06:30 MCV 82.2 fl (80.0-105.0) 06/01/18 06:30 MCH 25.2 pg (25.0-35.0) 06/01/18 06:30 MCHC 30.7 g/dl (31.0-37.0) L 06/01/18 06:30 RDW 15.5 % (11.5-14.5) H 06/01/18 06:30 Plt Count 307 10^3/uL (120.0-450.0) 06/01/18 06:30 MPV 8.9 fl (7.0-11.0) 06/01/18 06:30 Gran % 60.3 % (50.0-68.0) 06/01/18 06:30 Lymph % (Auto) 27.7 % (22.0-35.0) 06/01/18 06:30 Bee % (Auto) 8.0 % (1.0-6.0) H 06/01/18 06:30 Eos % (Auto) 3.8 % (1.5-5.0) 06/01/18 06:30 Baso % (Auto) 0.2 % (0.0-3.0) 06/01/18 06:30 Gran # 3.70 (1.4-6.5) 06/01/18 06:30 Lymph # (Auto) 1.7 (1.2-3.4) 06/01/18 06:30 Bee # (Auto) 0.5 (0.1-0.6) 06/01/18 06:30 Eos # (Auto) 0.2 (0.0-0.7) 06/01/18 06:30 Baso # (Auto) 0.01 K/mm3 (0.0-2.0) 06/01/18 06:30 Retic Count 2.34 % (0.5-1.5) H 05/29/18 06:30 PT 16.0 SECONDS (9.4-12.5) H 05/24/18 06:15 INR 1.38 05/24/18 06:15 APTT 29.1 Seconds (25.1-36.5) 05/24/18 06:15 pCO2 42 mm/Hg (35-45) 05/25/18 14:25 pO2 101.0 mm/Hg (80-100) H 05/25/18 14:25 HCO3 23.2 mmol/L (21-28) 05/25/18 14:25 ABG pH 7.35 (7.35-7.45) 05/25/18 14:25 ABG Total CO2 24.5 mmol.L (22-28) 05/25/18 14:25 ABG O2 Saturation 99.5 % (95-98) H 05/25/18 14:25 ABG O2 Content 12.8 ML/dl (15-23) L 05/25/18 14:25 ABG Base Excess -2.3 mmol/L (-2.0-3.0) L 05/25/18 14:25 ABG Hemoglobin 9.3 g/dL (11.7-17.4) L 05/25/18 14:25 ABG Carboxyhemoglobin 2.4 % (0.5-1.5) H 05/25/18 14:25 POC ABG HHb (Measured) 0.5 % (0-5) 05/25/18 14:25 ABG Methemoglobin 0.6 % (0.0-3.0) 05/25/18 14:25 ABG O2 Capacity 12.9 mL/dl (16-24) L 05/25/18 14:25 Hgb O2 Saturation 96.5 % (95.0-98.0) 05/25/18 14:25 FiO2 32.0 % 05/25/18 14:25 Sodium 140 mmol/L (132-148) 06/01/18 06:30 Potassium 4.1 mmol/L (3.6-5.0) 06/01/18 06:30 Chloride 103 mmol/L (98-107) 06/01/18 06:30 Carbon Dioxide 31 mmol/L (21-33) 06/01/18 06:30 Anion Gap 10 (10-20) 06/01/18 06:30 BUN 9 mg/dL (7-21) 06/01/18 06:30 Creatinine 0.7 mg/dl (0.7-1.2) 06/01/18 06:30 Est GFR ( Amer) > 60 06/01/18 06:30 Est GFR (Non-Af Amer) > 60 06/01/18 06:30 POC Glucose (mg/dL) 130 mg/dL (65-110) H 06/01/18 16:03 Random Glucose 119 mg/dL (70-110) H 06/01/18 06:30 Calcium 9.0 mg/dL (8.4-10.5) 06/01/18 06:30 Phosphorus 2.9 mg/dL (2.5-4.5) 05/27/18 06:20 Magnesium 1.9 mg/dL (1.7-2.2) 05/27/18 06:20 Iron 27 ug/dL (45-180) L 05/29/18 06:30 TIBC 238 ug/dL (265-497) L 05/29/18 06:30 % Saturation 11 % (20-55) L 05/29/18 06:30 Ferritin 83.5 ng/mL 05/29/18 06:30 Total Bilirubin 0.4 mg/dL (0.2-1.3) 06/01/18 06:30 AST 26 U/L (14-36) 06/01/18 06:30 ALT 23 U/L (7-56) 06/01/18 06:30 Alkaline Phosphatase 81 U/L (38-126) 06/01/18 06:30 Lactate Dehydrogenase 350 U/L (333-699) 05/21/18 15:03 Total Creatine Kinase 245 U/L (35-230) H 05/21/18 15:03 CK-MB (CK-2) 0.5 ng/mL (0.0-3.6) 05/21/18 15:03 CK-MB (CK-2) % Cancelled 05/21/18 15:03 Troponin I < 0.01 ng/mL 05/21/18 15:03 Total Protein 6.6 g/dL (5.8-8.3) 06/01/18 06:30 Albumin 3.3 g/dL (3.0-4.8) 06/01/18 06:30 Globulin 3.3 gm/dL 06/01/18 06:30 Albumin/Globulin Ratio 1.0 (1.1-1.8) L 06/01/18 06:30 Amylase 83 U/L (35-125) 05/21/18 15:03 Lipase 96 U/L (23-300) 05/21/18 15:03 Urine Color Yellow (YELLOW) 05/21/18 17:22 Urine Appearance Clear (CLEAR) 05/21/18 17:22 Urine pH 8.5 (4.7-8.0) 05/21/18 17:22 Ur Specific Partridge 1.010 (1.005-1.035) 05/21/18 17:22 Urine Protein Negative mg/dL (<30 mg/dL) 05/21/18 17:22 Urine Glucose (UA) Negative mg/dL (NEGATIVE) 05/21/18 17:22 Urine Ketones Negative mg/dL (NEGATIVE) 05/21/18 17:22 Urine Blood Negative (NEGATIVE) 05/21/18 17:22 Urine Nitrate Negative (NEGATIVE) 05/21/18 17:22 Urine Bilirubin Negative (NEGATIVE) 05/21/18 17:22 Urine Urobilinogen 0.2 E.U./dL (<1 E.U./dL) 05/21/18 17:22 Ur Leukocyte Esterase Negative Lynn/uL (NEGATIVE) 05/21/18 17:22 Blood Type A POSITIVE 05/24/18 06:15 Blood Type Confirm A POSITIVE 05/24/18 15:58 Antibody Screen Negative 05/24/18 06:15 Crossmatch See Detail 05/24/18 06:15 BBK History Checked No verified bt 05/24/18 06:15 Discharge Exam - Extremities Exam Extremities exam: normal inspection Attending/Attestation - Attestation I have personally seen and examined this patient.: Yes I have fully participated in the care of the patient.: Yes I have reviewed all pertinent clinical information, including history, physical exam and plan: Yes Notes (Text): 06/01/18 57 year old female with past medical history of hypertension, diabetes and recurrent diverticulitis presented with abdominal pain. She was found to have recurrent diverticulitis. She was seen by GI and surgery and underwent Amaury's procedure with colostomy POD #8. Diet was advanced which she began to tolerate and abdominal discomfort and nausea improved. She received ostomy training yesterday and today. Patient is discharged home to follow up at [facility]. Follow up with GI and surgery. Rae Villarreal MD Hospitalist.
--- NOTE | 2018-06-17 06:50 | OP ---
DATE: 05/24/2018 PREOPERATIVE DIAGNOSIS: Sigmoid diverticulitis with a mass in the sigmoid. POSTOPERATIVE DIAGNOSIS: Sigmoid diverticulitis with a mass in the sigmoid. OPERATION PERFORMED: Ureteral catheter was placed by Dr. Craig and a sigmoid colectomy, Amaury's procedure. SURGEON: Sean Joyce MD BALLISTICS PROFESSOR: Kelsie Dewey DO DESCRIPTION OF PROCEDURE: In the operating room, the patient was prepped with chlorhexidine, waiting 3 minutes, was then draped. After the successful time-out with the patient was examined by name, number, procedure, laterality, my lindy, and the consent form, the operation began. A lower midline incision was made through the skin and subcutaneous tissues having placed ureteral catheter by Dr. Craig. A lower midline was entered, and a very adherent mass was identified. The mass was with clear vision of the ureter. The inflammatory mass was then taken with MARCELLA followed by a LigaSure and removed in toto. A small stitch was placed and Prolene was on the distal end. The proximal end was brought up initially as a colostomy, but because of length, it was impossible to bring, so it was brought up as a separate colostomy little higher. It was brought up with some difficulty and was under minimal tension, but it is clearly viable. It was paired to the skin and eventually matured as much as possible. A drain was placed. The abdomen was copiously irrigated and dried. It was closed with #1 PDS above the level and tie in the middle with a buried knot. The incision was closed with Vicryl and krystina. The ostomy was matured with 2-0 Vicryl. The ostomy was clearly viable at this time. The patient was taken to recovery room in good condition after the sponge and needle counts were declared as correct. Sean Joyce MD
== END 2018-06-01 18:23 | disposition home or self-care (01) | DRG 221 ==
LOC: ED 13:55 → ERH 18:19 → 5RNO 20:34
PROVIDERS: ADMIT Internal Medicine; ATTEND Internal Medicine
PROC: 0DTN0ZZ Resection of Sigmoid Colon, Open Approach (ICD-10-PCS; principal; 2018-05-24 09:00)
PROC: 0D1N0Z4 Bypass Sigmoid Colon to Cutaneous, Open Approach (ICD-10-PCS; 2018-05-24 09:00)
PROC: 0WQF0ZZ Repair Abdominal Wall, Open Approach (ICD-10-PCS; 2018-05-24 09:00)
PROC: 0T788DZ Dilation of Bilateral Ureters with Intraluminal Device, Via Natural or Artificial Opening Endoscopic (ICD-10-PCS; 2018-05-24 09:00)
PROC: 3E0234Z Introduction of Serum, Toxoid and Vaccine into Muscle, Percutaneous Approach (ICD-10-PCS; 2018-06-01)
DX: K57.32 Diverticulitis of large intestine without perforation or abscess without bleeding (principal); I10 Essential (primary) hypertension; E11.9 Type 2 diabetes mellitus without complications; E55.9 Vitamin D deficiency, unspecified; D63.8 Anemia in other chronic diseases classified elsewhere; K42.9 Umbilical hernia without obstruction or gangrene; K31.7 Polyp of stomach and duodenum; K29.40 Chronic atrophic gastritis without bleeding; K64.4 Residual hemorrhoidal skin tags; K64.1 Second degree hemorrhoids; Z79.84 Long term (current) use of oral hypoglycemic drugs; Z23 Encounter for immunization

== ENCOUNTER 2018-06-30 15:08 | Outpatient (CLI) | payer OTHER | END 2018-06-30 15:09 | disposition home or self-care (01) | LOC: LAB 15:08 ==

== ENCOUNTER 2018-07-04 14:05 | Outpatient (CLI) | payer OTHER | END 2018-07-04 14:06 | disposition home or self-care (01) | LOC: RAD 14:05 ==

== ENCOUNTER 2018-07-11 18:23 | Inpatient (IN) | payer MEDICAID, OTHER ==
[2018-07-11 18:34] VITALS: BMI 34.7
--- NOTE | 2018-07-11 20:32 | ED PDOC ---
Arrival/HPI - General Chief Complaint: GI Problem Time Seen by Provider: 07/11/18 19:26 Historian: Patient - History of Present Illness Narrative History of Present Illness (Text): 07/11/18 19:30 Kiana Sales is a 58 year old female, whose past medical history includes HTN,DM,diverticulitis s/p colostomy, presents to the Emergency department complaining of burning at colostomy site. Patient states she underwent surgery over 1 month prior and was to be schedule for reversal. Patient denies any fever, chills, abdominal pain, or any other complaints. Patient complaining solely of burning inside the ostomy site. Past Medical History - Provider Review Nursing Documentation Reviewed: Yes - Infectious Disease Hx of Infectious Diseases: None - Cardiac Hx Hypertension: Yes - Pulmonary Hx Asthma: No Hx Bronchitis: No Hx Chronic Obstructive Pulmonary Disease (COPD): No Hx Emphysema: No Hx Pneumonia: No Hx Respiratory Aspiration: No Hx Respiratory Tract Infection: No Hx Sleep Apnea: No Hx Tuberculosis: No - Neurological Hx Alzheimer's Disease: No HX Cerebrovascular Accident: No Hx Dementia: No Hx Dizziness: No Hx Meningitis: No Hx Migraine: No Hx Parkinson's Disease: No Hx Seizures: No Hx Transient Ischemic Attacks (TIA): No - HEENT Hx HEENT Disorder: No - Renal Hx Renal Disorder: No - Endocrine/Metabolic Hx Diabetes Mellitus Type 2: Yes - Hematological/Oncological Hx Blood Transfusions: Yes Hx Blood Transfusion Reaction: No - Integumentary Hx Dermatological Disorder: No - Musculoskeletal/Rheumatological Hx Falls: No - Gastrointestinal Hx Diverticulitis: Yes Other/Comment: colostomy LLQ - Genitourinary/Gynecological Hx Genitourinary Disorders: No - Psychiatric Hx Psychophysiologic Disorder: No Hx Depression: No Hx Emotional Abuse: No Hx Physical Abuse: No Hx Substance Use: No - Surgical History Other/Comment: colostomy placement llq - Anesthesia Hx Anesthesia Reactions: No Hx Malignant Hyperthermia: No - Suicidal Assessment Feels Threatened In Home Enviroment: No Family/Social History - Physician Review Nursing Documentation Reviewed: Yes Family/Social History: Unknown Family HX Smoking Status: Never Smoked Hx Alcohol Use: No Hx Substance Use: No Allergies/Home Meds Allergies/Adverse Reactions: Allergies EGG Allergy (Verified 04/06/18 22:56) ANAPHYLAXIS Home Medications: Home Meds Medication Instructions Recorded Confirmed RX: Ergocalciferol (Vitamin D2) 50,000 units PO QD7 03/06/18 01/14/19 [Vitamin D2] RX: Multivitamin [Multivitamins] 1 each PO DAILY 08/31/17 07/11/18 RX: metFORMIN [glucOPHAGE] 1,000 mg PO BID 03/08/18 07/11/18 RX: Aspirin [Adult Aspirin] 81 mg PO DAILY 04/08/18 07/11/18 RX: Hydrochlorothiazide [Microzide] 12.5 mg PO DAILY 04/08/18 07/11/18 RX: amLODIPine [Norvasc] 5 mg PO DAILY 04/08/18 07/11/18 Review of Systems - Physician Review All systems were reviewed & negative as marked: Yes - Review of Systems Constitutional: Normal. absent: Fevers Eyes: Normal ENT: Normal Respiratory: Normal. absent: SOB, Cough Cardiovascular: Normal. absent: Chest Pain Gastrointestinal: Other (+burning sensation to colostomg site). absent: Abdominal Pain, Diarrhea, Nausea, Vomiting Genitourinary Female: Normal. absent: Dysuria, Frequency, Hematuria, Urine Output Changes Musculoskeletal: Normal. absent: Back Pain, Neck Pain Skin: Normal. absent: Rash Neurological: Normal. absent: Headache, Dizziness Endocrine: Normal Hemo/Lymphatic: Normal Psychiatric: Normal Physical Exam Vital Signs Reviewed: Yes Vital Signs Temp Pulse Resp BP Pulse Ox 07/11/18 18:38 98.2 F 75 18 123/82 98 Temperature: Afebrile Blood Pressure: Normal Pulse: Regular Respiratory Rate: Normal Appearance: Positive for: Well-Appearing, Non-Toxic, Comfortable Pain Distress: None Mental Status: Positive for: Alert and Oriented X 3 - Systems Exam Head: Present: Atraumatic, Normocephalic Pupils: Present: PERRL Extroacular Muscles: Present: EOMI Conjunctiva: Present: Normal Ears: Present: Normal, NORMAL TM, Normal Canal. No: Erythema, TM Bulging, Fluid, TM Perf Mouth: Present: Moist Mucous Membranes Pharnyx: Present: Normal. No: ERYTHEMA, EXUDATE, TONSILS ENLARGED, Peritonsilar Swelling, Uvular Deviation, Muffled/Hoarse Voice, Strider, Soft Palate/Uvular Edema Nose (External): Present: Atraumatic Nose (Internal): Present: Normal Inspection Neck: Present: Normal Range of Motion. No: Meningeal Signs, MIDLINE TENDERNESS, Paraspinal Tenderness Respiratory/Chest: Present: Clear to Auscultation, Good Air Exchange. No: Respiratory Distress, Accessory Muscle Use Cardiovascular: Present: Regular Rate and Rhythm, Normal S1, S2. No: Murmurs Abdomen: Present: Other (No erythema around the colostomy site, area inside with excoriation of ostomy tissue, no discharge noted). No: Tenderness, Distention, Peritoneal Signs Back: Present: Normal Inspection Upper Extremity: Present: Normal Inspection. No: Cyanosis, Edema Lower Extremity: Present: Normal Inspection. No: Edema Neurological: Present: GCS=15, CN II-XII Intact, Speech Normal Skin: Present: Warm, Dry, Normal Color. No: Rashes Psychiatric: Present: Alert, Oriented x 3, Normal Insight, Normal Concentration Medical Decision Making ED Course and Treatment: 07/11/18 19:30 Impression: 58 year old female complaining of burning at colostomy site Plan: -- Reassess and disposition Prior Visits: Notes and results from previous visits were reviewed. Progress Notes: 07/11/18 20:19 Case discussed with residential roofer helper highway traffic control technician, who agrees to evaluate pt in Emergency department. 07/11/18 21:[address] Joyce and Dr. Rojas, residential roofer helper, who states pt can be admitted to the hospitalist service for reversal of colostomy. Labwork ordered. 07/11/18 21:08 Case discussed with medical device highway traffic control technician, who is aware and agrees with plan. 07/11/18 21:[address] Sylvia Jade, who is aware and agrees with plan. Accepts pt in to hospitalist service. Pt will be admitted to [facility] for colostomy complication and surgery for colostomy reversal. - Scribe Statement The provider has reviewed the documentation as recorded by the Mingo Porter Provider Scribe Attestation: All medical record entries made by the [employer] were at my direction and personally dictated by me. I have reviewed the chart and agree that the record accurately reflects my personal performance of the history, physical exam, medical decision making, and the department course for this patient. I have also personally directed, reviewed, and agree with the discharge instructions and disposition. Disposition/Present on Arrival - Present on Arrival Any Indicators Present on Arrival: No History of DVT/PE: No History of Uncontrolled Diabetes: No Urinary Catheter: No History of Decub. Ulcer: No History Surgical Site Infection Following: None - Disposition Have Diagnosis and Disposition been Completed?: Yes Diagnosis: Colostomy complication Disposition: HOSPITALIZED Disposition Time: 21:13 Patient Plan: Admission Patient Problems: Current Active Problems Problem Status Onset Colostomy complication Acute Condition: STABLE
[2018-07-11] MEDS ORDERED: Zinc Oxide Topical 40% Oint (Desitin) TOP ONE (20:50)
--- NOTE | 2018-07-11 21:36 | CP.PCM.HP ---
History of Present Illness - History of Present Illness History of Present Illness: PGY-1 H&P for Dr. Jade CC: Pain at stoma site Patient is a 58 year old female, whose past medical history includes HTN, DM, diverticulitis s/p colostomy, presenting with pain and burning at colostomy site. Patient was discharged from the hospital on 06/01/18 for recurrent sigmoid diverticulitis requiring Amaury's procedure with hernia repair and ostomy was placed on April 2018. Patient states that she is scheduled for colostomy reversal this week. Patient's last Colonoscopy was in February 2018 that showed diverticular disease in signmoid and descending colon, no inflammation. And her last EGD was in February 2018 that showed gastric polyps, gastritis, no H pylori. Patient denies fevers, chills, shortness of breath, chest pain, nausea, vomiting, diarrhea, or urinary symptoms. 12 systems ROS reviewed and negative except mentioned in HPI. PMHx HTN, DM, Gastritis, recurrent diverticulosis s/p colostomy PSH: Amaury's procedure with hernia repair and ostomy (Apr, 2018), partial hysterectomy for uterine fibroids 2001 FH: Mother of an CT at age 70, sister has DM and kidney failure. No colon cancer history SH: Denies tobacco, alcohol, or drug use. All: Eggs- vomiting Med:See AUG PMD: Dr. Miller Present on Admission - Present on Admission Any Indicators Present on Admission: No History of DVT/PE: No History of Uncontrolled Diabetes: No Urinary Catheter: No Decubitus Ulcer Present: No Review of Systems - Review of Systems All systems: reviewed and no additional remarkable complaints except Past Patient History - Infectious Disease Hx of Infectious Diseases: None - Past Medical History & Family History Past Medical History?: Yes - Past Social History Smoking Status: Never Smoked - CARDIAC Hx Hypertension: Yes - PULMONARY Hx Asthma: No Hx Bronchitis: No Hx Chronic Obstructive Pulmonary Disease (COPD): No Hx Emphysema: No Hx Pneumonia: No Hx Respiratory Aspiration: No Hx Respiratory Tract Infection: No Hx Sleep Apnea: No Hx Tuberculosis: No - NEUROLOGICAL Hx Alzheimer's Disease: No HX Cerebrovascular Accident: No Hx Dementia: No Hx Dizziness: No Hx Meningitis: No Hx Migraine: No Hx Parkinson's Disease: No Hx Seizures: No Hx Transient Ischemic Attacks (TIA): No - HEENT Hx HEENT Problems: No - RENAL Hx Chronic Kidney Disease: No - ENDOCRINE/METABOLIC Hx Diabetes Mellitus Type 2: Yes - HEMATOLOGICAL/ONCOLOGICAL Hx Blood Transfusions: Yes Hx Blood Transfusion Reaction: No - INTEGUMENTARY Hx Dermatological Problems: No - MUSCULOSKELETAL/RHEUMATOLOGICAL Hx Falls: No - GASTROINTESTINAL Hx Diverticulitis: Yes Other/Comment: colostomy LLQ - GENITOURINARY/GYNECOLOGICAL Hx Genitourinary Disorders: No - PSYCHIATRIC Hx Psychophysiologic Disorder: No Hx Depression: No Hx Emotional Abuse: No Hx Physical Abuse: No Hx Substance Use: No - SURGICAL HISTORY Other/Comment: colostomy placement llq - ANESTHESIA Hx Anesthesia Reactions: No Hx Malignant Hyperthermia: No Meds Allergies/Adverse Reactions: Allergies Allergy/AdvReac Type Severity Reaction Status Date / Time EGG Allergy ANAPHYLAXIS Verified 04/06/18 22:56 Physical Exam - Constitutional Appears: Well, Non-toxic, No Acute Distress - Head Exam Head Exam: ATRAUMATIC, NORMOCEPHALIC - Eye Exam Eye Exam: EOMI, Normal appearance - ENT Exam ENT Exam: Mucous Membranes Moist - Respiratory Exam Respiratory Exam: Clear to Auscultation Bilateral. absent: Rales, Rhonchi, Wheezes, Respiratory Distress - Cardiovascular Exam Cardiovascular Exam: REGULAR RHYTHM, +S1, +S2. absent: Gallop, Rubs, Systolic Murmur - GI/Abdominal Exam GI & Abdominal Exam: Normal Bowel Sounds, Soft, Tenderness (Tender at stoma site). absent: Distended, Firm, Guarding Additional comments: stoma on Left mid-abdomen w. excoriated surrounding skin, tender to palpation - Extremities Exam Extremities exam: Positive for: normal inspection - Back Exam Back exam: NORMAL INSPECTION. absent: CVA tenderness (L), CVA tenderness (R) - Neurological Exam Neurological exam: Alert, CN II-XII Intact, Oriented x3 - Psychiatric Exam Psychiatric exam: Normal Affect, Normal Mood - Skin Skin Exam: Dry, Intact, Normal Color, Warm Results - Vital Signs Recent Vital Signs: Last Vital Signs Temp 98.2 F 07/11/18 18:38 Pulse 75 07/11/18 18:38 Resp 18 07/11/18 18:38 BP 123/82 07/11/18 18:38 Pulse Ox 98 07/11/18 18:38 - Labs Result Diagrams: 07/11/18 21:39 07/11/18 21:39 Assessment & Plan - Assessment and Plan (Free Text) Assessment: Patient is a 58 year old female, whose past medical history includes HTN, DM, diverticulitis s/p colostomy, presenting with pain and burning at colostomy site. Plan: Pain at stoma site - Tylenol 650mg PO PRN for pain - topical cream barrier per surgery Hx recent colostomy, possible reversal - Plan for colostomy reversal 07/13 - Surgery consulted, Dr. Joyce - for CV risk assessment and whether pt is medically optimized: - Echo: pending - Lipid panel: pending - EKG: pending - CXR: pending Hx of HTN - Norvasc 5mg PO - HTZ 12.5mg PO QD Hx of DM-2 - Hold home Metformin - ISS low - Accuchecks ACHS - HbA1c: pending Hx of Vit D deficiency - Ergocalciferol 1 cap PO QD7 Prophylaxis - GI: Protonix 40mg PO QD - DVT: Heparin 5000 units SC Q8 Case discussed with Dr. ez Laguna, PGY-1
--- NOTE | 2018-07-11 21:38 | CP.PCM.CON ---
History of Present Illness - History of Present Illness History of Present Illness: Surgery: Dr. Joyce CC: Pain at stoma site HPI: 57F w pmh of HTN, DM, and diverticulitis, s/p leary's procedure 05/24/18, presents to ED for worsening pain around stoma site x 1 week. She denies F/C, no abdominal pain, no N/V. No changes in appetite. She's been having stool output via stoma w. out any problems. She recently had CT-A/P on 07/04 to evaluate abdomen for reversal of stoma. PMH: See above PSH: Leary's, partial hysterectomy Meds: MAR reviewed ALL: Eggs Social: No ETOH/tobacco/drugs Fhx: no family hx colon CA Review of Systems - Review of Systems All systems: reviewed and no additional remarkable complaints except (HPI) Past Patient History - Infectious Disease Hx of Infectious Diseases: None - Past Medical History & Family History Past Medical History?: Yes - Past Social History Smoking Status: Never Smoked - CARDIAC Hx Hypertension: Yes - PULMONARY Hx Asthma: No Hx Bronchitis: No Hx Chronic Obstructive Pulmonary Disease (COPD): No Hx Emphysema: No Hx Pneumonia: No Hx Respiratory Aspiration: No Hx Respiratory Tract Infection: No Hx Sleep Apnea: No Hx Tuberculosis: No - NEUROLOGICAL Hx Alzheimer's Disease: No HX Cerebrovascular Accident: No Hx Dementia: No Hx Dizziness: No Hx Meningitis: No Hx Migraine: No Hx Parkinson's Disease: No Hx Seizures: No Hx Transient Ischemic Attacks (TIA): No - HEENT Hx HEENT Problems: No - RENAL Hx Chronic Kidney Disease: No - ENDOCRINE/METABOLIC Hx Diabetes Mellitus Type 2: Yes - HEMATOLOGICAL/ONCOLOGICAL Hx Blood Transfusions: Yes Hx Blood Transfusion Reaction: No - INTEGUMENTARY Hx Dermatological Problems: No - MUSCULOSKELETAL/RHEUMATOLOGICAL Hx Falls: No - GASTROINTESTINAL Hx Diverticulitis: Yes Other/Comment: colostomy LLQ - GENITOURINARY/GYNECOLOGICAL Hx Genitourinary Disorders: No - PSYCHIATRIC Hx Psychophysiologic Disorder: No Hx Depression: No Hx Emotional Abuse: No Hx Physical Abuse: No Hx Substance Use: No - SURGICAL HISTORY Other/Comment: colostomy placement llq - ANESTHESIA Hx Anesthesia Reactions: No Hx Malignant Hyperthermia: No Meds Allergies/Adverse Reactions: Allergies Allergy/AdvReac Type Severity Reaction Status Date / Time EGG Allergy ANAPHYLAXIS Verified 04/06/18 22:56 Physical Exam - Constitutional Appears: Non-toxic, No Acute Distress - Head Exam Head Exam: ATRAUMATIC, NORMOCEPHALIC - Eye Exam Eye Exam: EOMI - ENT Exam ENT Exam: Mucous Membranes Moist - Neck Exam Neck exam: Positive for: Full Rom - Respiratory Exam Respiratory Exam: NORMAL BREATHING PATTERN. absent: Accessory Muscle Use, Respiratory Distress - GI/Abdominal Exam GI & Abdominal Exam: Soft. absent: Distended, Firm, Guarding, Rigid, Tenderness Additional comments: stoma, L mid abdomen w. excoriated surrounding skin, tender to palpation - Extremities Exam Extremities exam: Negative for: calf tenderness, pedal edema - Neurological Exam Neurological exam: Alert, Oriented x3 Results - Vital Signs Recent Vital Signs: Last Vital Signs Temp 98.2 F 07/11/18 18:38 Pulse 75 07/11/18 18:38 Resp 18 07/11/18 18:38 BP 123/82 07/11/18 18:38 Pulse Ox 98 07/11/18 18:38 Assessment & Plan - Assessment and Plan (Free Text) Assessment: 58F w. hx of diverticulitis, s/p leary's on 05/24/18, now presenting w. peristomal skin excoriation -local wound care, apply desitin to excoriated skin and instruct pt on how to properly apply stoma wafer, pt presented to ED w. suboptimal placement, normal/healthy skin was exposed to gastric contents -will plan for stoma reversal -pt will need medical clearance -d/w attending Crystal PGY4
[2018-07-11 22:02] LABS: HEMOGLOBIN 10.6 g/dL (12.0-16.0); MEAN CELL VOLUME 80.4 fl (80.0-105.0); MEAN CORPUSCULAR HEMOGLOBIN 25.1 pg (25.0-35.0); MEAN CORPUSCULAR HGB CONC 31.2 g/dl (31.0-37.0); MEAN PLATELET VOLUME 9.9 fl (7.0-11.0); RBC 4.23 10^6/uL (3.5-6.1); RED CELL DISTRIBUTION WIDTH 14.7 % (11.5-14.5); WHITE BLOOD COUNT 6.9 10^3/uL (4.5-11.0)
[2018-07-11 22:03] LABS: ALB/GLOB RATIO 1.1 (1.1-1.8); ALBUMIN 4.3 g/dL (3.0-4.8); ALT/SGPT 19 U/L (7-56); AST/SGOT 20 U/L (14-36); BLOOD UREA NITROGEN 10 mg/dL (7-21); CALCIUM 9.6 mg/dL (8.4-10.5); GFR NON-AFRICAN AMERICAN > 60
[2018-07-11 22:08] LABS: INR 1.07; PARTIAL THROMBOPLASTIN TIME 29.7 Seconds (25.1-36.5); PROTHROMBIN TIME 12.2 SECONDS (9.4-12.5)
[2018-07-12] MEDS ORDERED: Pneumococcal 23-Valent Vaccine IM ONE (01:33)
[2018-07-12] MEDS: Pantoprazole 40 mg EC Tab PO SCH (06:03)
[2018-07-12 06:55] LABS: BASO # 0.01 K/mm3 (0.0-2.0); BASO % 0.2 % (0.0-3.0); EOS # 0.2 (0.0-0.7); EOS % 3.4 % (1.5-5.0); GRAN # 3.74 (1.4-6.5); GRAN % 58.5 % (50.0-68.0); HEMOGLOBIN 9.9 g/dL (12.0-16.0); LYMPH # 2.1 (1.2-3.4); LYMPH % 32.6 % (22.0-35.0); MEAN CELL VOLUME 80.4 fl (80.0-105.0); MEAN CORPUSCULAR HEMOGLOBIN 24.9 pg (25.0-35.0); MEAN CORPUSCULAR HGB CONC 30.9 g/dl (31.0-37.0); MEAN PLATELET VOLUME 9.6 fl (7.0-11.0); MONO # 0.3 (0.1-0.6); MONO % 5.3 % (1.0-6.0); RBC 3.98 10^6/uL (3.5-6.1); RED CELL DISTRIBUTION WIDTH 14.7 % (11.5-14.5); WHITE BLOOD COUNT 6.4 10^3/uL (4.5-11.0)
[2018-07-12 07:04] LABS: INR 1.08; PARTIAL THROMBOPLASTIN TIME 28.8 Seconds (25.1-36.5); PROTHROMBIN TIME 12.4 SECONDS (9.4-12.5)
[2018-07-12 07:31] LABS: LDL CHOLESTEROL 135 mg/dL (0-129)
[2018-07-12 07:39] LABS: ALB/GLOB RATIO 1.1 (1.1-1.8); ALT/SGPT 20 U/L (7-56); AST/SGOT 23 U/L (14-36); BLOOD UREA NITROGEN 11 mg/dL (7-21); CALCIUM 9.6 mg/dL (8.4-10.5); GFR NON-AFRICAN AMERICAN > 60; HDL CHOLESTEROL 35 mg/dL (29-60)
--- NOTE | 2018-07-12 08:20 | CP.PCM.PN ---
Subjective - Date & Time of Evaluation Date of Evaluation: 07/12/18 Time of Evaluation: 08:19 - Subjective Subjective: Resident Progress Note for Dr. Velazquez Patient examined at bedside. No acute events overnight. Admits to mild abdominal pain. Denies fever, chills, nausea, vomiting. Tolerating diet. Objective - Vital Signs/Intake and Output Vital Signs (last 24 hours): Temp Pulse Resp BP Pulse Ox 97.9 F 78 20 111/76 98 07/12/18 08:14 07/12/18 08:14 07/12/18 08:14 07/12/18 08:14 07/12/18 08:14 Intake and Output: 07/12/18 07/12/18 06:59 18:59 Intake Total 60 Balance 60 - Medications Medications: Current Medications Acetaminophen (Tylenol 325mg Tab) 650 mg PO Q6H PRN PRN Reason: Pain, moderate (4-7) Last Admin: 07/12/18 02:01 Dose: 650 mg Amlodipine Besylate (Norvasc) 5 mg PO DAILY [facility] Aspirin (Ecotrin) 81 mg PO DAILY [facility] Ergocalciferol (Drisdol 50,000 Intl Units Cap) 1 cap PO QD7 [facility] Heparin Sodium (Porcine) (Heparin) 5,000 units SC Q8 [facility]; Protocol Last Admin: 07/12/18 06:00 Dose: 5,000 units Hydrochlorothiazide (Microzide) 12.5 mg PO DAILY [facility] Insulin Human Regular (Humulin R Low) 0 units SC ACHS [facility]; Protocol Multivitamins (Thera Tab) 1 tab PO DAILY [facility] Pantoprazole Sodium (Protonix Ec Tab) 40 mg PO 0600 [facility] Last Admin: 07/12/18 06:03 Dose: 40 mg - Labs Labs: 07/12/18 06:00 07/12/18 06:00 PT 12.4 SECONDS (9.4-12.5) 07/12/18 06:00 INR 1.08 07/12/18 06:00 APTT 28.8 Seconds (25.1-36.5) 07/12/18 06:00 - Additional Findings Additional findings: - Constitutional Appears: Non-toxic, No Acute Distress - Head Exam Head Exam: ATRAUMATIC, NORMOCEPHALIC - Eye Exam Eye Exam: EOMI - ENT Exam ENT Exam: Mucous Membranes Moist - Neck Exam Neck exam: Positive for: Full Rom - Respiratory Exam Respiratory Exam: NORMAL BREATHING PATTERN. absent: Accessory Muscle Use, Respiratory Distress - GI/Abdominal Exam GI & Abdominal Exam: Soft. absent: Distended, Firm, Guarding, Rigid, Tenderness, Rebound Additional comments: colostomy bag intact left mid abdomen, skin excoriation - Extremities Exam Extremities exam: Negative for: calf tenderness, pedal edema - Neurological Exam Neurological exam: Alert, Oriented x3 Assessment and Plan - Assessment and Plan (Free Text) Assessment: 58 year old female with PMH diverticulitis, s/p euceda's on 05/24/18, now presenting with peristomal skin excoriation Plan: Periostomal excoriation - local wound care, apply desitin - will plan for stoma reversal - pt will need medical clearance - colonscopy to r/o mass - diabetic diet - Tylenol PRN for pain Dru Quintero PGY-1
[2018-07-12] MEDS: Insulin Reg-LOW-Coverage SC SCH ×4 (08:35→21:53)
--- NOTE | 2018-07-12 09:21 | RAD ---
Date of service: 07/11/2018 HISTORY: Preoperative examination COMPARISON: 05/21/2018 TECHNIQUE: Chest PA and lateral FINDINGS: LINES AND TUBES: None. LUNG AND PLEURA: The lungs are well inflated and clear. No pleural effusion or pneumothorax. HEART AND MEDIASTINUM: The heart is not enlarged. No aortic atherosclerotic calcifications present. The hilar and mediastinal contours are within normal limits. SKELETAL STRUCTURES: The bony structures are within normal limits for the patient's age. VISUALIZED UPPER ABDOMEN: Normal. OTHER FINDINGS: None. IMPRESSION: No active pulmonary disease.
[2018-07-12] MEDS: Ergocalciferol 50,000 Intl Units Cap PO SCH (09:54)
[2018-07-12] MEDS: Multivitamin Therapeutic Tab PO SCH (09:56)
--- NOTE | 2018-07-12 10:57 | CARD ---
APPROVED REPORT Date of service: 07/12/2018 EKG Measurement Heart [id number] <Conclusion> Normal sinus rhythm Nonspecific T wave abnormality Abnormal ECG
--- NOTE | 2018-07-12 14:55 | CP.PCM.PN ---
<Warren Rehman - Last Filed: 07/12/18 21:05> Subjective - Date & Time of Evaluation Date of Evaluation: 07/12/18 Time of Evaluation: 14:46 - Subjective Subjective: Warren Rehman, PGY-1 Medicine Progress Note for Dr. Villarreal: Pt was seen and examined this AM at bedside. Pt states that her abdominal pain is much better than before and is currently a 5/10. Pt states that surgery placed cream and barrier around ostomy site which really improved the pain and is no longer irritating her skin. She denies having any other pain anywhere and reports that she slept through the night without incident. She is tolerating her diet and is not having any associated nausea, vomiting or abdominal pain. She has no other complaints at this time. Objective - Vital Signs/Intake and Output Vital Signs (last 24 hours): Temp Pulse Resp BP Pulse Ox 97.9 F 78 20 111/71 98 07/12/18 08:14 07/12/18 09:55 07/12/18 08:14 07/12/18 09:55 07/12/18 08:14 Intake and Output: 07/12/18 07/12/18 06:59 18:59 Intake Total 60 Balance 60 - Medications Medications: Current Medications Acetaminophen (Tylenol 325mg Tab) 650 mg PO Q6H PRN PRN Reason: Pain, moderate (4-7) Last Admin: 07/12/18 02:01 Dose: 650 mg Amlodipine Besylate (Norvasc) 5 mg PO DAILY [facility] Last Admin: 07/12/18 09:55 Dose: 5 mg Aspirin (Ecotrin) 81 mg PO DAILY [facility] Last Admin: 07/12/18 09:54 Dose: 81 mg Ergocalciferol (Drisdol 50,000 Intl Units Cap) 1 cap PO QD7 [facility] Last Admin: 07/12/18 09:54 Dose: 1 cap Heparin Sodium (Porcine) (Heparin) 5,000 units SC Q8 [facility]; Protocol Last Admin: 07/12/18 06:00 Dose: 5,000 units Hydrochlorothiazide (Microzide) 12.5 mg PO DAILY [facility] Last Admin: 07/12/18 09:55 Dose: 12.5 mg Insulin Human Regular (Humulin R Low) 0 units SC ACHS [facility]; Protocol Last Admin: 07/12/18 11:49 Dose: Not Given Multivitamins (Thera Tab) 1 tab PO DAILY [facility] Last Admin: 07/12/18 09:56 Dose: 1 tab Pantoprazole Sodium (Protonix Ec Tab) 40 mg PO 0600 [facility] Last Admin: 07/12/18 06:03 Dose: 40 mg - Labs Labs: 07/12/18 06:00 07/12/18 06:00 PT 12.4 SECONDS (9.4-12.5) 07/12/18 06:00 INR 1.08 07/12/18 06:00 APTT 28.8 Seconds (25.1-36.5) 07/12/18 06:00 - Constitutional Appears: Non-toxic, No Acute Distress - Head Exam Head Exam: ATRAUMATIC, NORMAL INSPECTION, NORMOCEPHALIC - Eye Exam Eye Exam: EOMI, Normal appearance, PERRL - Respiratory Exam Respiratory Exam: Clear to Ausculation Bilateral, NORMAL BREATHING PATTERN. absent: Accessory Muscle Use, Decreased Breath Sounds, Rales, Rhonchi, Wheezes, Respiratory Distress, Stridor - Cardiovascular Exam Cardiovascular Exam: RRR, +S1, +S2. absent: Gallop, Rubs - GI/Abdominal Exam GI & Abdominal Exam: Soft, Normal Bowel Sounds. absent: Distended, Firm, Guarding, Tenderness Additional comments: stoma on Left mid-abdomen w. excoriated surrounding skin, tender to palpation, no noted erythema or purulent drainage. - Extremities Exam Extremities Exam: Normal Inspection - Back Exam Back Exam: NORMAL INSPECTION. absent: CVA tenderness (L), CVA tenderness (R) - Neurological Exam Neurological Exam: Alert, Awake, Oriented x3 - Psychiatric Exam Psychiatric exam: Normal Affect, Normal Mood - Skin Skin Exam: Dry, Normal Color, Warm Assessment and Plan - Assessment and Plan (Free Text) Assessment: Pt is a 58 yo F whose pmhx includes HTN, DM, diverticulitis s/p colostomy, presenting with pain and burning at colostomy site. Plan: 1) Pain at stoma site - Impoving - Tylenol 650mg PO PRN for pain - Topical cream barrier per surgery 2) Diverticulitis s/p colostomy - Plan for colostomy reversal 07/13 - Surgery consulted, Dr. Joyce, recs appreciated - GI, Dr. Joaquin, consulted to r/o mass - for CV risk assessment and risk stratification: - Cardio consult - Echo: pending - Lipid panel: T, Chol: 214 - EKG: NSR @ 82 bpm - CXR: No active pulm dz 3) Hx of HTN - Norvasc 5mg PO - HTZ 12.5mg PO QD 4) Hx of DM-2 - Hold home Metformin - ISS low - Accuchecks ACHS - HbA1c: pending 5) Hx of Vit D deficiency - Ergocalciferol 1 cap PO QD7 Prophylaxis - GI: Protonix 40mg PO QD - DVT: Heparin 5000 units SC Q8 Case seen and discussed with Dr. Phil Rehman, PGY-1 <Rae Villarreal - Last Filed: 07/13/18 07:56> Objective - Vital Signs/Intake and Output Vital Signs (last 24 hours): Temp Pulse Resp BP Pulse Ox 98.0 F 78 20 104/70 96 07/13/18 06:00 07/13/18 06:00 07/13/18 06:00 07/13/18 06:00 07/13/18 06:00 Intake and Output: 07/13/18 07/13/18 06:59 18:59 Intake Total 4680 Output Total 3300 Balance 1380 - Medications Medications: Current Medications Acetaminophen (Tylenol 325mg Tab) 650 mg PO Q6H PRN PRN Reason: Pain, moderate (4-7) Last Admin: 07/12/18 02:01 Dose: 650 mg Amlodipine Besylate (Norvasc) 5 mg PO DAILY [facility] Last Admin: 07/12/18 09:55 Dose: 5 mg Aspirin (Ecotrin) 81 mg PO DAILY [facility] Last Admin: 07/12/18 09:54 Dose: 81 mg Ergocalciferol (Drisdol 50,000 Intl Units Cap) 1 cap PO QD7 [facility] Last Admin: 07/12/18 09:54 Dose: 1 cap Heparin Sodium (Porcine) (Heparin) 5,000 units SC Q8 [facility]; Protocol Last Admin: 07/13/18 06:06 Dose: 5,000 units Hydrochlorothiazide (Microzide) 12.5 mg PO DAILY [facility] Last Admin: 07/12/18 09:55 Dose: 12.5 mg Insulin Human Regular (Humulin R Low) 0 units SC ACHS [facility]; Protocol Last Admin: 07/12/18 21:53 Dose: Not Given Multivitamins (Thera Tab) 1 tab PO DAILY [facility] Last Admin: 07/12/18 09:56 Dose: 1 tab Pantoprazole Sodium (Protonix Ec Tab) 40 mg PO 0600 [facility] Last Admin: 07/13/18 06:08 Dose: 40 mg - Labs Labs: 07/13/18 07:00 07/13/18 07:00 PT 12.4 SECONDS (9.4-12.5) 07/12/18 06:00 INR 1.08 07/12/18 06:00 APTT 28.8 Seconds (25.1-36.5) 07/12/18 06:00 Attending/Attestation - Attestation I have personally seen and examined this patient.: Yes I have fully participated in the care of the patient.: Yes I have reviewed all pertinent clinical information, including history, physical exam and plan: Yes Notes (Text): 07/12/18 58 year old female with past medical history of hypertension, diabetes, diverti culitis, s/p recent colostomy who presented with complaint of pain and burning at colostomy site. GI and surgery are following. Plan for possible colostomy reversal as per surgery. Rae Villarreal MD Hospitalist.
--- NOTE | 2018-07-12 15:30 | CON ---
DATE: 07/12/2018 GASTROENTEROLOGY CONSULTATION REQUESTING PHYSICIAN: Dr. Villarreal. REASON FOR CONSULT: I have been asked to see this 58-year-old female, who underwent a diverting colostomy and Amaury's procedure back in 04/2018 for diverticulitis, who now comes to the hospital with pain around her stoma. Examination of the stoma reveals some excoriation due to improperly placed colostomy appliance. The patient had local treatment of her colostomy and now denies any abdominal pain. The patient has a history of recurrent diverticulitis. She had a colonoscopy back in 02/2018, which showed diverticulosis. PAST MEDICAL HISTORY: Past medical history is notable for diabetes mellitus, hypertension, recurrent diverticulitis. PAST SURGICAL HISTORY: Past surgical history is notable for Amaury's procedure with colostomy in 04/2018, partial hysterectomy. FAMILY HISTORY: Family history is notable for mother with coronary artery disease. SOCIAL HISTORY: She denies cigarette smoking or alcohol use. PHYSICAL EXAMINATION: GENERAL: Middle-aged female lying in bed, in no acute distress. VITAL SIGNS: Reveal temperature of 97.9, blood pressure 111/76, heart rate of 78. HEENT: Reveal sclerae to be white. Conjunctivae pink. NECK: Supple. CHEST: Lungs are clear. HEART: Exam reveals regular rate and rhythm. ABDOMEN: Soft. There is a left-sided colostomy. EXTREMITIES: Show no edema. LABORATORY DATA: Reveal hemoglobin 9.9, white blood cell count 6.4. Chemistries reveal normal electrolytes. IMPRESSION: This is a 58-year-old female with pain around her colostomy secondary to excoriation due to a malplaced colostomy appliance. The patient's symptoms have improved with conservative treatment. RECOMMENDATIONS: The patient is to have reversal of her colostomy. No further GI workup is planned at this time. Cuate Joaquin MD
--- NOTE | 2018-07-12 17:25 | CARD ---
APPROVED REPORT Date of service: 07/12/2018 EXAM: Two-dimensional and M-mode echocardiogram with Doppler and color Doppler. INDICATION Abnormal EKG/Arrhythmia 2D DIMENSIONS Left Atrium (2D)3.9 (1.6-4.0cm)IVSd1.1 (0.7-1.1cm) LVDd4.4 (3.9-5.9cm)PWd1.1 (0.7-1.1cm) LVDs3.0 (2.5-4.0cm)FS (%) 32.3 % LVEF (%)60.7 (>50%) M-Mode DIMENSIONS Aortic Root2.30 (2.2-3.7cm)Aortic Cusp Exc.1.70 (1.5-2.0cm) Aortic Valve AoV Peak Cptwxhnf803.0cm/Yolis Peak GR.13mmHg Mitral Valve MV E Mocszydt07.3cm/sMV A Egwxtjrd84.5cm/sE/A ratio0.9 TDI E/Lateral E'0.0E/Medial E'0.0 Tricuspid Valve TR Peak Ncymdzpn716ew/sRAP YPHEOPYD05sqVtRX Peak Gr.6mmHg [id number] LEFT VENTRICLE The left ventricle is normal size. There is normal left ventricular wall thickness. The left ventricular ejection fraction is within the normal range. Mild Septal hypokinesis Transmitral Doppler flow pattern is Grade I-abnormal relaxation pattern. RIGHT VENTRICLE The right ventricle is normal size. There is normal right ventricular wall thickness. The right ventricular systolic function is normal. ATRIA The left atrium size is normal. The right atrium size is normal. AORTIC VALVE The aortic valve is not well visualized. No aortic regurgitation is present. There is no aortic valvular stenosis. MITRAL VALVE The mitral valve is normal in structure. There is no mitral valve regurgitation noted. There is no mitral valve stenosis. TRICUSPID VALVE The tricuspid valve is normal in structure. There is trace tricuspid regurgitation. PULMONIC VALVE The pulmonary valve is normal in structure. There is no pulmonic valvular regurgitation. GREAT VESSELS The aortic root is normal in size. PERICARDIAL EFFUSION There is a trace pericardial effusion. <Conclusion> There is normal left ventricular wall thickness. The left ventricular ejection fraction is within the normal range. Mild Septal hypokinesis Transmitral Doppler flow pattern is Grade I-abnormal relaxation pattern.
--- NOTE | 2018-07-12 18:24 | CON ---
DATE: 07/12/2018 CARDIOLOGY CONSULTATION HISTORY: The patient is a 58-year-old woman, who presented with discomfort in the colostomy. She is scheduled for reversal of her colostomy PAST MEDICAL HISTORY: The patient's past medical history is free of cardiac disease. No angina. No shortness of breath. The patient's functional capacity includes climbing more than two flights of stairs daily without angina. No previous myocardial infarction. Her cardiac risk factors includes diabetes mellitus and hypertension. Her colostomy was due to diverticulitis. SOCIAL HISTORY: The patient does not smoke. REVIEW OF SYSTEMS: Fourteen-point review of systems is reviewed in detail. No cardiac history noted. PHYSICAL EXAMINATION: VITAL SIGNS: Blood pressure is 111/71, the heart rate is in the 70s. NECK: Negative JVD. LUNGS: Without rales. CARDIAC: Heart rate S1, S2. EXTREMITIES: Without edema. EKG shows normal sinus rhythm with nonspecific ST-T changes. LABORATORY DATA: BUN and creatinine are normal. Cholesterol is 214, glucose is 124, hemoglobin is 9.9. IMPRESSION: 1. The patient is scheduled for a colostomy reversal 2. No cardiac history in the past and without cardiac symptoms. 3. Diabetes mellitus. 4. Hypertension. 5. Hypercholesterolemia. 6. Anemia. PLAN: Given these findings, there are no active cardiac issues at this time. The patient has had no cardiac workup in the past. We will obtain an echocardiogram in preparation for her surgery. Forrest Campbell MD
[2018-07-13] MEDS: Pantoprazole 40 mg EC Tab PO SCH (06:08)
[2018-07-13 07:28] LABS: BASO # 0.01 K/mm3 (0.0-2.0); BASO % 0.2 % (0.0-3.0); EOS # 0.3 (0.0-0.7); EOS % 4.3 % (1.5-5.0); GRAN # 3.26 (1.4-6.5); GRAN % 54.3 % (50.0-68.0); HEMOGLOBIN 10.2 g/dL (12.0-16.0); MEAN CELL VOLUME 80.2 fl (80.0-105.0); MEAN CORPUSCULAR HEMOGLOBIN 24.9 pg (25.0-35.0); MEAN CORPUSCULAR HGB CONC 31.1 g/dl (31.0-37.0); MONO # 0.4 (0.1-0.6); MONO % 7.2 % (1.0-6.0); RBC 4.09 10^6/uL (3.5-6.1); RED CELL DISTRIBUTION WIDTH 14.8 % (11.5-14.5)
[2018-07-13 07:46] LABS: ALB/GLOB RATIO 1.1 (1.1-1.8); ALT/SGPT 20 U/L (7-56); AST/SGOT 20 U/L (14-36); BLOOD UREA NITROGEN 12 mg/dL (7-21); CALCIUM 9.8 mg/dL (8.4-10.5); GFR NON-AFRICAN AMERICAN > 60
[2018-07-13] MEDS ORDERED: Magnesium Sulfate 1 gm in D5W 1 GM/100 ML BAG IVPB ONE (08:27)
[2018-07-13] MEDS ORDERED: Magnesium Sulfate 2 gm/50 ml 2 GM/50 ML BAG IVPB ONE (08:28)
--- NOTE | 2018-07-13 08:35 | PN ---
DATE: 07/13/2018 SUBJECTIVE: The patient is comfortable. No chest pain noted. Her abdominal pain is better. PHYSICAL EXAMINATION: VITAL SIGNS: Blood pressure 104/70, heart rates in the 70s. NECK: Negative JVD. LUNGS: Without rales. HEART: S1, S2. EXTREMITIES: Without edema. LABORATORY: Hemoglobin is 10.2, glucose is 146. Echocardiogram shows normal LV function. IMPRESSION: 1. Diabetes mellitus. 2. Hypertension. 3. Hypercholesterolemia. 4. Anemia. 5. Normal left ventricular function. Given these findings, there are no active cardiac issues that would prevent the patient from having her surgery at reasonable risk. Forrest Campbell MD
[2018-07-13] MEDS: Ergocalciferol 50,000 Intl Units Cap PO SCH (08:55)
[2018-07-13] MEDS: Insulin Reg-LOW-Coverage SC SCH ×3 (08:55→17:21)
[2018-07-13] MEDS: Multivitamin Therapeutic Tab PO SCH (10:55)
--- NOTE | 2018-07-13 12:07 | CP.PCM.PN ---
Subjective - Date & Time of Evaluation Date of Evaluation: 07/13/18 Time of Evaluation: 12:24 - Subjective Subjective: Resident Progress Note for Surgery: Dr. Joyce Patient examined at bedside. No acute events overnight. Patient is resting comfortably, reports feeling improved since admission. Tolerating diet. Denies nausea, vomiting, abdominal pain. Objective - Vital Signs/Intake and Output Vital Signs (last 24 hours): Temp Pulse Resp BP Pulse Ox 98.0 F 78 20 104/70 96 07/13/18 06:00 07/13/18 06:00 07/13/18 06:00 07/13/18 06:00 07/13/18 06:00 Intake and Output: 07/13/18 07/13/18 06:59 18:59 Intake Total 4680 Output Total 3300 Balance 1380 - Medications Medications: Current Medications Acetaminophen (Tylenol 325mg Tab) 650 mg PO Q6H PRN PRN Reason: Pain, moderate (4-7) Last Admin: 07/12/18 02:01 Dose: 650 mg Amlodipine Besylate (Norvasc) 5 mg PO DAILY [facility] Last Admin: 07/13/18 10:55 Dose: Not Given Aspirin (Ecotrin) 81 mg PO DAILY [facility] Last Admin: 07/13/18 10:55 Dose: 81 mg Ergocalciferol (Drisdol 50,000 Intl Units Cap) 1 cap PO QD7 [facility] Last Admin: 07/13/18 08:55 Dose: 1 cap Heparin Sodium (Porcine) (Heparin) 5,000 units SC Q8 [facility]; Protocol Last Admin: 07/13/18 06:06 Dose: 5,000 units Hydrochlorothiazide (Microzide) 12.5 mg PO DAILY [facility] Last Admin: 07/13/18 10:56 Dose: Not Given Insulin Human Regular (Humulin R Low) 0 units SC ACHS [facility]; Protocol Last Admin: 07/13/18 12:03 Dose: 1 unit Multivitamins (Thera Tab) 1 tab PO DAILY [facility] Last Admin: 07/13/18 10:55 Dose: 1 tab Pantoprazole Sodium (Protonix Ec Tab) 40 mg PO 0600 [facility] Last Admin: 07/13/18 06:08 Dose: 40 mg - Labs Labs: 07/13/18 07:00 07/13/18 07:00 PT 12.4 SECONDS (9.4-12.5) 07/12/18 06:00 INR 1.08 07/12/18 06:00 APTT 28.8 Seconds (25.1-36.5) 07/12/18 06:00 - Additional Findings Additional findings: - Constitutional Appears: Non-toxic, No Acute Distress - Head Exam Head Exam: ATRAUMATIC, NORMOCEPHALIC - Eye Exam Eye Exam: EOMI - ENT Exam ENT Exam: Mucous Membranes Moist - Neck Exam Neck exam: Positive for: Full Rom - Respiratory Exam Respiratory Exam: NORMAL BREATHING PATTERN. absent: Accessory Muscle Use, Respi ratory Distress - GI/Abdominal Exam GI & Abdominal Exam: Soft. absent: Distended, Firm, Guarding, Rigid, Tenderness, Rebound Additional comments: colostomy bag intact left mid abdomen with stool output, skin excoriation - Extremities Exam Extremities exam: Negative for: calf tenderness, pedal edema - Neurological Exam Neurological exam: Alert, Oriented x3 Assessment and Plan - Assessment and Plan (Free Text) Assessment: 58 year old female with PMH diverticulitis, s/p euceda's on 05/24/18, now presenting with peristomal skin excoriation Plan: Periostomal excoriation - local wound care, apply desitin - patient to followup outpatient with Dr. Joyce within one week for stoma reversal - pt will need medical clearance - colonscopy to r/o mass - diabetic diet - Tylenol PRN for pain - further management as per primary team Dru Quintero PGY-1
--- NOTE | 2018-07-13 13:10 | CP.PCM.DIS ---
<Warren Rehman - Last Filed: 07/13/18 16:30> Provider - Provider Date of Admission: 07/11/18 21:35 Attending physician: Rae Villarreal MD Primary care physician: Silvia Miller MD Consults: 07/11/18 22:38 General Surgery Consult Routine Comment: Consulting Provider: Sean Joyce Consulting Physician: Sean Joyce Reason for Consult: Pain in colostomy site 07/12/18 02:13 Diabetic Education Referral Routine Comment: appetite improved Physician Instructions: Reason For Exam: large wt loss prior to colostomy 07/12/18 08:22 Consult [Physician Consult] Routine Comment: Consulting Provider: Forrest Campbell Consulting Physician: Forrest Campbell Reason for Consult: risk stratification for reversal of colostomy 07/12/18 11:03 Wound Care [Nursing Referral for Wound Care] Routine Comment: Physician Instructions: Reason For Exam: wound care /ostomy nurse consult 07/12/18 11:59 Gastroenterology Consult Routine Comment: Consulting Provider: Cuate Joaquin Consulting Physician: Cuate Joaquin Reason for Consult: s/p euceda's, r/o colonic mass Time Spent in preparation of Discharge (in minutes): 45 Diagnosis - Discharge Diagnosis (1) Colostomy complication Status: Acute (2) Abdominal pain Status: Acute Hospital Course - Lab Results Lab Results: Most Recent Lab Values WBC 6.0 10^3/uL (4.5-11.0) 07/13/18 07:00 RBC 4.09 10^6/uL (3.5-6.1) 07/13/18 07:00 Hgb 10.2 g/dL (12.0-16.0) L 07/13/18 07:00 Hct 32.8 % (36.0-48.0) L 07/13/18 07:00 MCV 80.2 fl (80.0-105.0) 07/13/18 07:00 MCH 24.9 pg (25.0-35.0) L 07/13/18 07:00 MCHC 31.1 g/dl (31.0-37.0) 07/13/18 07:00 RDW 14.8 % (11.5-14.5) H 07/13/18 07:00 Plt Count 216 10^3/uL (120.0-450.0) 07/13/18 07:00 MPV 10.0 fl (7.0-11.0) 07/13/18 07:00 Gran % 54.3 % (50.0-68.0) 07/13/18 07:00 Lymph % (Auto) 34.0 % (22.0-35.0) 07/13/18 07:00 [place] % (Auto) 7.2 % (1.0-6.0) H 07/13/18 07:00 Eos % (Auto) 4.3 % (1.5-5.0) 07/13/18 07:00 Baso % (Auto) 0.2 % (0.0-3.0) 07/13/18 07:00 Gran # 3.26 (1.4-6.5) 07/13/18 07:00 Lymph # (Auto) 2.0 (1.2-3.4) 07/13/18 07:00 [place] # (Auto) 0.4 (0.1-0.6) 07/13/18 07:00 Eos # (Auto) 0.3 (0.0-0.7) 07/13/18 07:00 Baso # (Auto) 0.01 K/mm3 (0.0-2.0) 07/13/18 07:00 PT 12.4 SECONDS (9.4-12.5) 07/12/18 06:00 INR 1.08 07/12/18 06:00 APTT 28.8 Seconds (25.1-36.5) 07/12/18 06:00 Sodium 139 mmol/L (132-148) 07/13/18 07:00 Potassium 4.1 mmol/L (3.6-5.0) 07/13/18 07:00 Chloride 102 mmol/L (98-107) 07/13/18 07:00 Carbon Dioxide 28 mmol/L (21-33) 07/13/18 07:00 Anion Gap 13 (10-20) 07/13/18 07:00 BUN 12 mg/dL (7-21) 07/13/18 07:00 Creatinine 0.7 mg/dl (0.7-1.2) 07/13/18 07:00 Est GFR ( Amer) > 60 07/13/18 07:00 Est GFR (Non-Af Amer) > 60 07/13/18 07:00 POC Glucose (mg/dL) 171 mg/dL (65-110) H 07/13/18 11:54 Random Glucose 146 mg/dL (70-110) H 07/13/18 07:00 Hemoglobin A1c 6.8 % (4.2-6.5) H D 07/12/18 06:00 Calcium 9.8 mg/dL (8.4-10.5) 07/13/18 07:00 Phosphorus 5.5 mg/dL (2.5-4.5) H 07/13/18 07:00 Magnesium 1.6 mg/dL (1.7-2.2) L 07/13/18 07:00 Total Bilirubin 0.4 mg/dL (0.2-1.3) 07/13/18 07:00 AST 20 U/L (14-36) 07/13/18 07:00 ALT 20 U/L (7-56) 07/13/18 07:00 Alkaline Phosphatase 80 U/L (38-126) 07/13/18 07:00 Total Protein 7.8 g/dL (5.8-8.3) 07/13/18 07:00 Albumin 4.0 g/dL (3.0-4.8) 07/13/18 07:00 Globulin 3.8 gm/dL 07/13/18 07:00 Albumin/Globulin Ratio 1.1 (1.1-1.8) 07/13/18 07:00 Triglycerides 145 mg/dL (35-160) 07/12/18 06:00 Cholesterol 214 mg/dL (130-200) H 07/12/18 06:00 LDL Cholesterol Direct 135 mg/dL (0-129) H 07/12/18 06:00 HDL Cholesterol 35 mg/dL (29-60) 07/12/18 06:00 - Hospital Course Hospital Course: Upon Admission: Patient is a 58 year old female, whose past medical history includes HTN, DM, diverticulitis s/p colostomy, presenting with pain and burning at colostomy site. Patient was discharged from the hospital on 06/01/18 for recurrent sigmoid diverticulitis requiring Amaury's procedure with hernia repair and ostomy was placed on April 2018. Patient states that she is scheduled for colostomy reversal this week. Patient's last Colonoscopy was in February 2018 that showed diverticular disease in signmoid and descending colon, no inflammation. And her last EGD was in February 2018 that showed gastric polyps, gastritis, no H pylori. Patient denies fevers, chills, shortness of breath, chest pain, nausea, vomiting, diarrhea, or urinary symptoms. Hospital course: Pt was being treated for skin excoriation near the ostomy site. Surgery was consulted for management. Pt was given tylenol for the pain and given a topical barrier cream per surgical team. Pt had risk stratification through cardio consult, echo, lipid panel, EKG and CXR. Pts skin near ostomy site was noted to be exposed to contents being released from ostomy site, so ostomy bag and barrier cream were placed on to help allieviate the exposure of the skin to the gastric contents that was leading to excoriations. Pt was also being managed for HTN and pts home norvasc and HCTZ were continued. For pts DM2 pts home metformin was held and placed on ISS. Pt is scheduled for an outpt colostomy reversal and will follow up with Dr. Joyce in terms of scheduling. Pt expressed that she no longer has any abd pain or discomfort around her ostomy site. Surgical team signed off of the pt and stated to follow up with her surgeon Dr. Joyce. Plan for discharge was explained to the pt and she expressed understanding and agreement with the medical plan for discharge. Pt was given opportunity to have all questions and concerns addressed prior to d/c. Discharge Exam - Head Exam Head Exam: ATRAUMATIC, NORMAL INSPECTION, NORMOCEPHALIC - Eye Exam Eye Exam: EOMI, Normal appearance, PERRL - Respiratory Exam Respiratory Exam: Clear to PA & Lateral, NORMAL BREATHING PATTERN, UNREMARKABLE. absent: Accessory Muscle Use, Decreased Breath Sounds, Rales, Rhonchi, Respiratory Distress, Stridor - Cardiovascular Exam Cardiovascular Exam: RRR, +S1, +S2. absent: Gallop, Rubs - GI/Abdominal Exam GI & Abdominal Exam: Normal Bowel Sounds. absent: Distended, Firm, Guarding, Rigid, Tenderness Additional comments: stoma on Left mid-abdomen with excoriated surrounding skin, tender to palpation, no noted erythema or purulent drainage. - Extremities Exam Extremities exam: normal capillary refill, normal inspection, pedal pulses present - Back Exam Back exam: NORMAL INSPECTION. absent: CVA tenderness (L), CVA tenderness (R) - Neurological Exam Neurological exam: Alert, Oriented x3 - Psychiatric Exam Psychiatric exam: Normal Affect, Normal Mood - Skin Skin Exam: Dry, Normal Color, Warm Discharge Plan - Follow Up Plan Condition: STABLE Disposition: HOME/ ROUTINE Instructions: How to Care for Your Ostomy, Adult, Colostomy Care Additional Instructions: Please follow up with Dr Joyce at his [place] office in 3-5 days. You can reach him at [phone] to make an appointment. As per Surgery team, you will need elective reversal of colostomy. Follow up with your primary care doctor, Dr Miller, in 1 week. You are scheduled for July 18 at [address] [facility]. Please continue your home medications. If you have any returning complaints or have any new symptoms please return to the ED. Referrals: Sean Joyce MD [Staff Provider] - 7 Days (Call Dr. Joyce for follow up elective colostomy reversal) Silvia Miller MD [Primary Care Provider] - <Rae Villarreal - Last Filed: 07/13/18 17:00> Provider - Provider Date of Admission: 07/11/18 21:35 Attending physician: Rae Villarreal MD Primary care physician: Silvia Miller MD Consults: 07/11/18 22:38 General Surgery Consult Routine Comment: Consulting Provider: Sean Joyce Consulting Physician: Sean Joyce Reason for Consult: Pain in colostomy site 07/12/18 02:13 Diabetic Education Referral Routine Comment: appetite improved Physician Instructions: Reason For Exam: large wt loss prior to colostomy 07/12/18 08:22 Consult [Physician Consult] Routine Comment: Consulting Provider: Forrest Campbell Consulting Physician: Forrest Campbell Reason for Consult: risk stratification for reversal of colostomy 07/12/18 11:03 Wound Care [Nursing Referral for Wound Care] Routine Comment: Physician Instructions: Reason For Exam: wound care /ostomy nurse consult 07/12/18 11:59 Gastroenterology Consult Routine Comment: Consulting Provider: Cuate Joaquin Consulting Physician: Cuate Joaquin Reason for Consult: s/p euceda's, r/o colonic mass Hospital Course - Lab Results Lab Results: Most Recent Lab Values WBC 6.0 10^3/uL (4.5-11.0) 07/13/18 07:00 RBC 4.09 10^6/uL (3.5-6.1) 07/13/18 07:00 Hgb 10.2 g/dL (12.0-16.0) L 07/13/18 07:00 Hct 32.8 % (36.0-48.0) L 07/13/18 07:00 MCV 80.2 fl (80.0-105.0) 07/13/18 07:00 MCH 24.9 pg (25.0-35.0) L 07/13/18 07:00 MCHC 31.1 g/dl (31.0-37.0) 07/13/18 07:00 RDW 14.8 % (11.5-14.5) H 07/13/18 07:00 Plt Count 216 10^3/uL (120.0-450.0) 07/13/18 07:00 MPV 10.0 fl (7.0-11.0) 07/13/18 07:00 Gran % 54.3 % (50.0-68.0) 07/13/18 07:00 Lymph % (Auto) 34.0 % (22.0-35.0) 07/13/18 07:00 [place] % (Auto) 7.2 % (1.0-6.0) H 07/13/18 07:00 Eos % (Auto) 4.3 % (1.5-5.0) 07/13/18 07:00 Baso % (Auto) 0.2 % (0.0-3.0) 07/13/18 07:00 Gran # 3.26 (1.4-6.5) 07/13/18 07:00 Lymph # (Auto) 2.0 (1.2-3.4) 07/13/18 07:00 [place] # (Auto) 0.4 (0.1-0.6) 07/13/18 07:00 Eos # (Auto) 0.3 (0.0-0.7) 07/13/18 07:00 Baso # (Auto) 0.01 K/mm3 (0.0-2.0) 07/13/18 07:00 PT 12.4 SECONDS (9.4-12.5) 07/12/18 06:00 INR 1.08 07/12/18 06:00 APTT 28.8 Seconds (25.1-36.5) 07/12/18 06:00 Sodium 139 mmol/L (132-148) 07/13/18 07:00 Potassium 4.1 mmol/L (3.6-5.0) 07/13/18 07:00 Chloride 102 mmol/L (98-107) 07/13/18 07:00 Carbon Dioxide 28 mmol/L (21-33) 07/13/18 07:00 Anion Gap 13 (10-20) 07/13/18 07:00 BUN 12 mg/dL (7-21) 07/13/18 07:00 Creatinine 0.7 mg/dl (0.7-1.2) 07/13/18 07:00 Est GFR ( Amer) > 60 07/13/18 07:00 Est GFR (Non-Af Amer) > 60 07/13/18 07:00 POC Glucose (mg/dL) 164 mg/dL (65-110) H 07/13/18 16:34 Random Glucose 146 mg/dL (70-110) H 07/13/18 07:00 Hemoglobin A1c 6.8 % (4.2-6.5) H D 07/12/18 06:00 Calcium 9.8 mg/dL (8.4-10.5) 07/13/18 07:00 Phosphorus 5.5 mg/dL (2.5-4.5) H 07/13/18 07:00 Magnesium 1.6 mg/dL (1.7-2.2) L 07/13/18 07:00 Total Bilirubin 0.4 mg/dL (0.2-1.3) 07/13/18 07:00 AST 20 U/L (14-36) 07/13/18 07:00 ALT 20 U/L (7-56) 07/13/18 07:00 Alkaline Phosphatase 80 U/L (38-126) 07/13/18 07:00 Total Protein 7.8 g/dL (5.8-8.3) 07/13/18 07:00 Albumin 4.0 g/dL (3.0-4.8) 07/13/18 07:00 Globulin 3.8 gm/dL 07/13/18 07:00 Albumin/Globulin Ratio 1.1 (1.1-1.8) 07/13/18 07:00 Triglycerides 145 mg/dL (35-160) 07/12/18 06:00 Cholesterol 214 mg/dL (130-200) H 07/12/18 06:00 LDL Cholesterol Direct 135 mg/dL (0-129) H 07/12/18 06:00 HDL Cholesterol 35 mg/dL (29-60) 07/12/18 06:00 Attending/Attestation - Attestation I have personally seen and examined this patient.: Yes I have fully participated in the care of the patient.: Yes I have reviewed all pertinent clinical information, including history, physical exam and plan: Yes Notes (Text): 07/13/18 16:58 58 year old female with past medical history of hypertension, diabetes, diverticulitis, s/p recent colostomy who presented with complaint of pain and burning at colostomy site. She was seen by GI and surgery. Plan was for colostomy reversal as per surgery which can be done next week electively as per surgery. Patient is discharged home to follow up at [facility]. Follow up with surgery next week. Rae Villarreal MD Hospitalist.
[2018-07-13 16:31] VITALS: BP 110/68; PULSE 68; RESP 18; TEMP 97; O2SAT 97
== END 2018-07-13 18:10 | disposition home or self-care (01) | DRG 252 ==
LOC: ED 18:23 → ERH 21:35 → 3RNO 07-12 00:10
PROVIDERS: ADMIT Hospitalist; ATTEND Internal Medicine
DX: K94.09 Other complications of colostomy (principal); I10 Essential (primary) hypertension; E11.9 Type 2 diabetes mellitus without complications; D64.9 Anemia, unspecified; E55.9 Vitamin D deficiency, unspecified; E78.00 Pure hypercholesterolemia, unspecified; K29.70 Gastritis, unspecified, without bleeding; K31.7 Polyp of stomach and duodenum; Y83.3 Surgical operation with formation of external stoma as the cause of abnormal reaction of the patient, or of later complication, without mention of misadventure at the time of the procedure; Z79.84 Long term (current) use of oral hypoglycemic drugs

== ENCOUNTER 2018-07-24 08:00 | Inpatient (IN) | payer MEDICAID, OTHER ==
[2018-07-24] MEDS ORDERED: Magnesium Hydroxide Susp 30 ml UD PO STA (09:52)
--- NOTE | 2018-07-24 10:25 | ED PDOC ---
Arrival/HPI <Yang Rosales - Last Filed: 07/24/18 10:50> - General Historian: Patient - History of Present Illness Narrative History of Present Illness (Text): Patient is a 58 yr old female with PMH HTN, DM and diverticulitis s/p Euceda's procedure who presents with pain and burning at her ostomy site. Patient states that she was recently discharged from [facility] after a similar problem. She states that 2 days ago she began having burning and pain at the site. She is scheduled to have a reversal of her colostomy with Dr. Joyce tomorrow at [facility]. She endorses associated headache. She otherwise denies CP, SOB, abdominal pain, n/v, f/c, stool changes, hematochezia, and extremity pain/weakness. She does indicate that occasionally the excoriated area at her ostomy site has small flecks of blood but denies blood in stool. 07/24/18 10:20 Time/Duration: Prior to Arrival, < week (2 days) Symptom Onset: Gradual Symptom Course: Worsening Quality: Burning Severity Level: 5 Activities at Onset: Rest <Vane Augustin - Last Filed: 07/24/18 19:16> - General Chief Complaint: Dizziness/Lightheaded Time Seen by Provider: 07/24/18 08:48 Past Medical History - Provider Review Nursing Documentation Reviewed: Yes - Infectious Disease Hx of Infectious Diseases: None - Cardiac Hx Hypertension: Yes - Pulmonary Hx Asthma: No Hx Bronchitis: No Hx Chronic Obstructive Pulmonary Disease (COPD): No Hx Emphysema: No Hx Pneumonia: No Hx Respiratory Aspiration: No Hx Respiratory Tract Infection: No Hx Sleep Apnea: No Hx Tuberculosis: No - Neurological Hx Alzheimer's Disease: No HX Cerebrovascular Accident: No Hx Dementia: No Hx Dizziness: No Hx Meningitis: No Hx Migraine: No Hx Parkinson's Disease: No Hx Seizures: No Hx Transient Ischemic Attacks (TIA): No - HEENT Hx HEENT Disorder: No - Renal Hx Renal Disorder: No - Endocrine/Metabolic Hx Diabetes Mellitus Type 2: Yes - Hematological/Oncological Hx Blood Transfusions: Yes Hx Blood Transfusion Reaction: No - Integumentary Hx Dermatological Disorder: No - Musculoskeletal/Rheumatological Hx Falls: No - Gastrointestinal Hx Diverticulitis: Yes Other/Comment: colostomy LLQ - Genitourinary/Gynecological Hx Genitourinary Disorders: No - Psychiatric Hx Psychophysiologic Disorder: No Hx Depression: No Hx Emotional Abuse: No Hx Physical Abuse: No Hx Substance Use: No - Surgical History Other/Comment: colostomy placement llq - Anesthesia Hx Anesthesia: Yes Hx Anesthesia Reactions: No Hx Malignant Hyperthermia: No - Suicidal Assessment Feels Threatened In Home Enviroment: No <Vane Augustin - Last Filed: 07/24/18 19:16> Family/Social History - Physician Review Nursing Documentation Reviewed: Yes Family/Social History: Unknown Family HX Smoking Status: Never Smoked Hx Alcohol Use: No Hx Substance Use: No <Vane Augustin - Last Filed: 07/24/18 19:16> Allergies/Home Meds <Yang Rosales - Last Filed: 07/24/18 10:50> <Vane Augustin - Last Filed: 07/24/18 19:16> Allergies/Adverse Reactions: Allergies EGG Allergy (Verified 07/24/18 13:32) ANAPHYLAXIS Home Medications: Home Meds Medication Instructions Recorded Confirmed Ergocalciferol (Vitamin D2) 50,000 units PO QD7 08/31/17 07/24/18 [Vitamin D2] Multivitamin [Multivitamins] 1 each PO DAILY 08/31/17 07/24/18 metFORMIN [glucOPHAGE] 1,000 mg PO BID 03/08/18 07/24/18 Aspirin [Adult Aspirin] 81 mg PO DAILY 04/08/18 07/24/18 Hydrochlorothiazide [Microzide] 12.5 mg PO DAILY 04/08/18 07/24/18 amLODIPine [Norvasc] 5 mg PO DAILY 04/08/18 07/24/18 Review of Systems - Physician Review All systems were reviewed & negative as marked: Yes - Review of Systems Constitutional: Normal Respiratory: absent: SOB, Cough Cardiovascular: absent: Chest Pain, Syncope Gastrointestinal: Other (pain/burning at ostomy site). absent: Abdominal Pain, Diarrhea, Nausea, Vomiting, Hematochezia, Hematemesis Genitourinary Female: absent: Dysuria Musculoskeletal: absent: Arthralgias, Back Pain Skin: Other (skin excoriation inferior to ostomy site) Neurological: Headache. absent: Dizziness Endocrine: absent: Diaphoresis <Vane Augustin - Last Filed: 07/24/18 19:16> Physical Exam Vital Signs Temp Pulse Resp BP Pulse Ox 07/24/18 08:00 97.8 F 85 18 127/79 96 <Ricky Rosalesont - Last Filed: 07/24/18 10:50> Vital Signs Reviewed: Yes Vital Signs Temp Pulse Resp BP Pulse Ox 07/24/18 08:00 97.8 F 85 18 127/79 96 Temperature: Afebrile Blood Pressure: Normal Pulse: Regular Respiratory Rate: Normal Appearance: Positive for: Well-Appearing, Non-Toxic, Comfortable Pain Distress: Mild Mental Status: Positive for: Alert and Oriented X 3 Finger Stick Blood Glucose: 188 - Systems Exam Head: Present: Atraumatic, Normocephalic Extroacular Muscles: Present: EOMI Mouth: Present: Moist Mucous Membranes Neck: Present: Normal Range of Motion Respiratory/Chest: Present: Clear to Auscultation, Good Air Exchange. No: Respiratory Distress, Accessory Muscle Use Abdomen: Present: Tenderness (at skin excoriation inferior to ostomy, no tenderness to palpation of other areas of the abdomen), Other (left lower/mid quadrant osotmy site, pink patent and productive). No: Distention, Peritoneal Signs, Guarding Upper Extremity: Present: Normal Inspection, NORMAL PULSES. No: Cyanosis, Edema Lower Extremity: Present: Normal Inspection, NORMAL PULSES. No: Edema, CALF TENDERNESS Neurological: Present: GCS=15, CN II-XII Intact, Speech Normal Skin: Present: Warm, Other (small 3 cm x 2 cm area inferior to ostomy site of excoriation) Psychiatric: Present: Alert, Oriented x 3, Normal Insight, Normal Concentration <Vane Augustin - Last Filed: 07/24/18 19:16> Medical Decision Making ED Course and Treatment: 07/24/18 10:50 Impression: 58 yr old female with PMH who presents with pain and burning at her ostomy site. Patient states that she was recently discharged from [facility] after a similar problem In agreement with resident note which contains more details about the patient. Patient seen and evaluated with resident. Came up with plan and treatment together. Plan: -- Milk of Magnesia -- Consultations - Medication Orders Current Medication Orders: Discontinued Medications Acetaminophen (Tylenol 325mg Tab) 650 mg PO STAT STA Stop: 07/24/18 09:59 Last Admin: 07/24/18 10:16 Dose: 650 mg MAR Pain/Vitals Document 07/24/18 10:16 MR (Rec: 07/24/18 10:17 MR [id number]) Pain Reassessment Is This A Pain ReAssessment? Yes Sleep Is patient sleeping during reassessment? 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 Joyce came to see would like patient admitted to hospital overnight, medical assistant cardiology paged regarding admission, Hospitalist called regarding admission 07/24/18 11:[address] Aguila regarding admission she agrees to accept the patient to her service and admit the patient to the hospital pending surgery tomorrow 07/24/18 11:25 07/24/18 19:16 - Medication Orders Current Medication Orders: Discontinued Medications Acetaminophen (Tylenol 325mg Tab) 650 mg PO STAT STA Stop: 07/24/18 09:59 Last Admin: 07/24/18 10:16 Dose: 650 mg MAR Pain/Vitals Document 07/24/18 10:16 MR (Rec: 07/24/18 10:17 MR [id number]) Pain Reassessment Is This A Pain ReAssessment? Yes Sleep Is patient sleeping during reassessment? 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 - Scribe Statement The provider has reviewed the documentation as recorded by the Scribe Lazarus Hines All medical record entries made by the Scribe were at my direction and personally dictated by me. I have reviewed the chart and agree that the record accurately reflects my personal performance of the history, physical exam, medical decision making, and the department course for this patient. I have also personally directed, reviewed, and agree with the discharge instructions and disposition. <Yang Rosales - Last Filed: 07/24/18 10:50> Disposition/Present on Arrival <Yang Rosales - Last Filed: 07/24/18 10:50> - Present on Arrival Any Indicators Present on Arrival: No History of DVT/PE: No History of Uncontrolled Diabetes: No Urinary Catheter: No History of Decub. Ulcer: No History Surgical Site Infection Following: None - Disposition Have Diagnosis and Disposition been Completed?: Yes Disposition Time: 12:10 Patient Plan: Admission <Vane Augustin - Last Filed: 07/24/18 19:16> - Disposition Diagnosis: Colostomy care, Complication of ostomy Disposition: HOSPITALIZED Condition: STABLE
--- NOTE | 2018-07-24 12:01 | CP.PCM.HP ---
<Luana Manuel - Last Filed: 07/24/18 13:33> History of Present Illness - History of Present Illness History of Present Illness: Luana Manuel, PGY2, H&P for Dr Fox: CC: pain around colostomy site This is a 58 yr old female with PMH HTN, DM and diverticulitis s/p Leary's procedure on 04/2018, presents for pain and burning around colostomy site. Patient rates it as 9/10, achy, nonradiating, denies erythema, drainage, fevers, chills, nausea, vomiting, appetite changes, diarrhea, abdominal pain. Patient is scheduled for colostomy reversal with Dr Joyce tomorrow. Of note, patient was recently admitted to [facility] from 07/11 to 07/13 for similar complaint and treated with desitin and barrier protection dressings per surgery team. Patient is having regular bowel movements, last one brown yesterday night. Reports small flecks of blood, but denies melena or gross hematochezia. Otherwise, denies chest pain, shortness of breath, headache, neck pain, leg swelling, urinary symptoms. In ED, patient afebrile with vitals stable. Milk of magnesia applied to the colostomy site with relief. Surgery team evaluated patient, states that she will go for her scheduled colostomy reversal tomorrow. 12 point ROS obtained and negative, except as per HPI. PMHx HTN, DM, Gastritis, recurrent diverticulosis s/p colostomy PSH: Amaury's procedure with hernia repair and ostomy (Apr, 2018), partial hysterectomy for uterine fibroids 2001 FH: Mother of an MS at age 70, sister has DM and kidney failure. No colon cancer history SH: Denies tobacco, alcohol, or drug use. All: Eggs- vomiting Med:See AUG PMD: Dr. Miller Present on Admission - Present on Admission Any Indicators Present on Admission: No History of DVT/PE: No History of Uncontrolled Diabetes: No Urinary Catheter: No Decubitus Ulcer Present: No Review of Systems - Review of Systems All systems: reviewed and no additional remarkable complaints except Review of Systems: as per HPI Past Patient History - Infectious Disease Hx of Infectious Diseases: None - Past Medical History & Family History Past Medical History?: Yes - Past Social History Smoking Status: Never Smoked - CARDIAC Hx Hypertension: Yes - PULMONARY Hx Asthma: No Hx Bronchitis: No Hx Chronic Obstructive Pulmonary Disease (COPD): No Hx Emphysema: No Hx Pneumonia: No Hx Respiratory Aspiration: No Hx Respiratory Tract Infection: No Hx Sleep Apnea: No Hx Tuberculosis: No - NEUROLOGICAL Hx Alzheimer's Disease: No HX Cerebrovascular Accident: No Hx Dementia: No Hx Dizziness: No Hx Meningitis: No Hx Migraine: No Hx Parkinson's Disease: No Hx Seizures: No Hx Transient Ischemic Attacks (TIA): No - HEENT Hx HEENT Problems: No - RENAL Hx Chronic Kidney Disease: No - ENDOCRINE/METABOLIC Hx Diabetes Mellitus Type 2: Yes - HEMATOLOGICAL/ONCOLOGICAL Hx Blood Transfusions: Yes Hx Blood Transfusion Reaction: No - INTEGUMENTARY Hx Dermatological Problems: No - MUSCULOSKELETAL/RHEUMATOLOGICAL Hx Falls: No - GASTROINTESTINAL Hx Diverticulitis: Yes Other/Comment: colostomy LLQ - GENITOURINARY/GYNECOLOGICAL Hx Genitourinary Disorders: No - PSYCHIATRIC Hx Psychophysiologic Disorder: No Hx Depression: No Hx Emotional Abuse: No Hx Physical Abuse: No Hx Substance Use: No - SURGICAL HISTORY Other/Comment: colostomy placement llq - ANESTHESIA Hx Anesthesia: Yes Hx Anesthesia Reactions: No Hx Malignant Hyperthermia: No Meds Allergies/Adverse Reactions: Allergies Allergy/AdvReac Type Severity Reaction Status Date / Time EGG Allergy ANAPHYLAXIS Verified 07/24/18 13:32 Physical Exam - Constitutional Appears: Non-toxic, No Acute Distress - Head Exam Head Exam: ATRAUMATIC, NORMOCEPHALIC - Eye Exam Eye Exam: EOMI, PERRL. absent: Conjunctival injection, Nystagmus, Scleral icterus Pupil Exam: NORMAL ACCOMODATION, PERRL. absent: Irregular, Miosis, Unequal - ENT Exam ENT Exam: Mucous Membranes Moist - Neck Exam Neck exam: Positive for: Full Rom - Respiratory Exam Respiratory Exam: Clear to Auscultation Bilateral, NORMAL BREATHING PATTERN. absent: Accessory Muscle Use, Prolonged Expiratory Phase, Rales, Rhonchi, Wheezes, Respiratory Distress, Stridor - Cardiovascular Exam Cardiovascular Exam: RRR, +S1, +S2. absent: Systolic Murmur - GI/Abdominal Exam GI & Abdominal Exam: Normal Bowel Sounds, Soft. absent: Distended, Firm, Guarding, Pulsatile Mass, Rebound, Rigid Additional comments: Midline scar below umbilicus noted. Left sided colostomy bag noted, no erythema or discharge noted. Mild tenderness to palpation around colostomy site. Stoma is pink. - Extremities Exam Extremities exam: Positive for: normal inspection. Negative for: calf tenderness, pedal edema - Back Exam Back exam: NORMAL INSPECTION. absent: CVA tenderness (L), CVA tenderness (R) - Neurological Exam Neurological exam: Alert, Oriented x3 - Psychiatric Exam Psychiatric exam: Normal Affect, Normal Mood - Skin Skin Exam: Dry, Normal Color, Warm Results - Vital Signs Recent Vital Signs: Last Vital Signs Temp 97.8 F 07/24/18 08:00 Pulse 59 L 07/24/18 11:32 Resp 18 07/24/18 11:32 BP 119/81 07/24/18 11:32 Pulse Ox 99 07/24/18 11:32 Assessment & Plan - Assessment and Plan (Free Text) Assessment: This is a 58 year old female, with PMH HTN, DM, gastritis, recurrent diverticulitis s/p colostomy in 04/2018, presents with pain and burning at colostomy site. Patient is scheduled for colostomy reversal with Dr Joyce tomorrow: Pain and burning around colostomy site: - Milk of Magnesia helped patient - Surgery on board. F/u recs - Reversal colostomy planned for tomorrow with Dr Joyce. NPO after midnight - Bowel prep as per surgery - tylenol prn pain - desitin - monitor Hx of HTN: - normotensive currently - in setting of CLD, will hold home anti-HTN norvasc 5 mg and HCTZ 12.5 mg - hydralazine prn for SBP>150 - monitor Hx of DM: - ISS - blood glucose q 6 hrs - hypoglycemia protocol in place - Hgb A1c 6.8 on 07/12/2018 - monitor Hx of Vitamin D deficiency: - Drmindyol weekly PPX: GI: Pepcid DVT: SCDs (will hold heparin sq in setting of surgery tomorrow) Case seen and discussed with Dr Fox. <Chrystal Fox - Last Filed: 07/24/18 14:56> Results - Vital Signs Recent Vital Signs: Last Vital Signs Temp 97.8 F 07/24/18 08:00 Pulse 63 07/24/18 13:25 Resp 12 07/24/18 13:48 BP 119/75 07/24/18 13:25 Pulse Ox 98 07/24/18 13:25 - Labs Result Diagrams: 07/24/18 13:20 07/24/18 13:20 Labs: Laboratory Results - last 24 hr 07/24/18 07/24/18 07/24/18 13:20 13:20 13:20 WBC 6.2 RBC 3.86 Hgb 9.8 L Hct 30.9 L MCV 80.1 MCH 25.4 MCHC 31.7 RDW 15.0 H Plt Count 194 MPV 9.1 Neut % (Auto) 60.1 Lymph % (Auto) 31.0 [place] % (Auto) 5.6 Eos % (Auto) 3.1 Baso % (Auto) 0.2 Lymph # (Auto) 1.9 [place] # (Auto) 0.4 Eos # (Auto) 0.2 Baso # (Auto) 0.01 Absolute Neuts (auto) 3.74 PT 12.4 INR 1.10 APTT 31.8 Sodium 138 Potassium 3.9 Chloride 103 Carbon Dioxide 29 Anion Gap 10 BUN 14 Creatinine 0.6 L Est GFR ( Amer) > 60 Est GFR (Non-Af Amer) > 60 Random Glucose 108 Calcium 9.3 Phosphorus 4.9 H Magnesium 1.7 Total Bilirubin 0.3 AST 21 ALT 21 Alkaline Phosphatase 76 Total Protein 7.4 Albumin 3.9 Globulin 3.6 Albumin/Globulin Ratio 1.1 Attending/Attestation - Attestation I have personally seen and examined this patient.: Yes I have fully participated in the care of the patient.: Yes I have reviewed all pertinent clinical information: Yes Notes (Text): 07/24/18 14:56 Medical record note made by the resident after discussion with my direction and input after the patient was personally seen and examined by me. I have reviewed the chart and agree that the record accurately reflects by personal performance of the history, physical exam, data review, and medical decision-making, in the course for the patient. I have also personally directed the plan of care.
[2018-07-24] MEDS ORDERED: Peg-Electrolyte Oral Soln 4L (Golytely) PO ONE (12:25)
[2018-07-24] MEDS ORDERED: Dextrose 50% SYRINGE Inj (50 ml) IV PRN (12:49)
[2018-07-24] MEDS ORDERED: Zinc Oxide Topical 40% Oint (Desitin) TOP PRN (13:04)
[2018-07-24 13:29] LABS: BASO # 0.01 K/mm3 (0.0-2.0); BASO % 0.2 % (0.0-3.0); EOS # 0.2 (0.0-0.7); EOS % 3.1 % (1.5-5.0); HEMOGLOBIN 9.8 g/dL (12.0-16.0); LYMPH # 1.9 (1.2-3.4); MEAN CELL VOLUME 80.1 fl (80.0-105.0); MEAN CORPUSCULAR HEMOGLOBIN 25.4 pg (25.0-35.0); MEAN CORPUSCULAR HGB CONC 31.7 g/dl (31.0-37.0); MEAN PLATELET VOLUME 9.1 fl (7.0-11.0); MONO # 0.4 (0.1-0.6); MONO % 5.6 % (1.0-6.0); RBC 3.86 10^6/uL (3.5-6.1); WHITE BLOOD COUNT 6.2 10^3/uL (4.5-11.0)
[2018-07-24 13:38] LABS: INR 1.1; PARTIAL THROMBOPLASTIN TIME 31.8 Seconds (26.9-38.3); PROTHROMBIN TIME 12.4 SECONDS (9.4-12.5)
[2018-07-24 13:52] VITALS: BMI 32.9
[2018-07-24 13:59] LABS: ALB/GLOB RATIO 1.1 (1.1-1.8); ALBUMIN 3.9 g/dL (3.0-4.8); ALT/SGPT 21 U/L (7-56); AST/SGOT 21 U/L (14-36); BLOOD UREA NITROGEN 14 mg/dL (7-21); CALCIUM 9.3 mg/dL (8.4-10.5); GFR NON-AFRICAN AMERICAN > 60
[2018-07-24] MEDS ORDERED: ERYthromycin Base 250 MG DR Cap PO ONE ×3 (14:00→20:00)
[2018-07-24] MEDS ORDERED: Bacitracin 500 Units/gm Oint Foilpak UD ONE (17:18)
--- NOTE | 2018-07-24 17:49 | CP.PCM.CON ---
History of Present Illness - History of Present Illness History of Present Illness: Surgery: Dr. Joyce CC: Pain at stoma site HPI: 57F w pmh of HTN, DM, and diverticulitis, s/p leary's procedure for acute diverticulitis 05/24/18, presents to ED for worsening pain around stoma site. PT was recently discharged for same issues. She denies F/C, no N/V. No changes in appetite. She's been having stool output via stoma w. out any problems. Surgery is consulted to evaluated for stoma. PMH: See above PSH: Leary's, partial hysterectomy Meds: MAR reviewed ALL: Eggs Social: No ETOH/tobacco/drugs Fhx: no family hx colon CA Review of Systems - Review of Systems Review of Systems: see HPI Past Patient History - Infectious Disease Hx of Infectious Diseases: None - Past Medical History & Family History Past Medical History?: Yes - Past Social History Smoking Status: Never Smoked - CARDIAC Hx Hypertension: Yes - PULMONARY Hx Asthma: No Hx Bronchitis: No Hx Chronic Obstructive Pulmonary Disease (COPD): No Hx Emphysema: No Hx Pneumonia: No Hx Respiratory Aspiration: No Hx Respiratory Tract Infection: No Hx Sleep Apnea: No Hx Tuberculosis: No - NEUROLOGICAL Hx Alzheimer's Disease: No HX Cerebrovascular Accident: No Hx Dementia: No Hx Dizziness: No Hx Meningitis: No Hx Migraine: No Hx Parkinson's Disease: No Hx Seizures: No Hx Transient Ischemic Attacks (TIA): No - HEENT Hx HEENT Problems: No - RENAL Hx Chronic Kidney Disease: No - ENDOCRINE/METABOLIC Hx Diabetes Mellitus Type 2: Yes - HEMATOLOGICAL/ONCOLOGICAL Hx Blood Disorders: No - INTEGUMENTARY Hx Dermatological Problems: No - MUSCULOSKELETAL/RHEUMATOLOGICAL Hx Falls: No - GASTROINTESTINAL Hx Diverticulitis: Yes Other/Comment: colostomy LLQ - GENITOURINARY/GYNECOLOGICAL Hx Genitourinary Disorders: No - PSYCHIATRIC Hx Psychophysiologic Disorder: No Hx Depression: No Hx Emotional Abuse: No Hx Physical Abuse: No Hx Substance Use: No - SURGICAL HISTORY Other/Comment: colostomy placement llq - ANESTHESIA Hx Anesthesia: Yes Hx Anesthesia Reactions: No Hx Malignant Hyperthermia: No Meds Allergies/Adverse Reactions: Allergies Allergy/AdvReac Type Severity Reaction Status Date / Time EGG Allergy ANAPHYLAXIS Verified 07/24/18 13:32 - Medications Medications: Current Medications Acetaminophen (Tylenol 325mg Tab) 650 mg PO Q6H PRN PRN Reason: Pain, moderate (4-7) Dextrose (Dextrose 50% Inj) 0 ml IV STAT PRN; Protocol PRN Reason: Hypoglycemia Protocol Famotidine (Pepcid) 20 mg IVP DAILY [facility] Hydralazine HCl (Apresoline) 5 mg IVP Q6 PRN PRN Reason: Systolic Blood Pressure Dextrose (Dextrose 5% In Water 1000 Ml) 1,000 mls @ 0 mls/hr IV .Q0M PRN; Protocol PRN Reason: Hypoglycemia Protocol Insulin Human Lispro (Humalog Low) 0 units SC ACHS YOBANY; Protocol Neomycin Sulfate (Neomycin Tab) 1,000 mg PO ONCE ONE Stop: 07/24/18 20:01 Petrolatum (Desitin Maximum Strength Topical 40% Oint) 0 gm TOP Q4H PRN PRN Reason: Rash Physical Exam - Constitutional Appears: No Acute Distress - Head Exam Head Exam: ATRAUMATIC, NORMAL INSPECTION, NORMOCEPHALIC - Eye Exam Eye Exam: EOMI, Normal appearance, PERRL Pupil Exam: NORMAL ACCOMODATION, PERRL - ENT Exam ENT Exam: Mucous Membranes Moist - Neck Exam Neck exam: Positive for: Normal Inspection - Respiratory Exam Respiratory Exam: NORMAL BREATHING PATTERN - Cardiovascular Exam Cardiovascular Exam: REGULAR RHYTHM - GI/Abdominal Exam GI & Abdominal Exam: Soft, Tenderness Additional comments: stoma: patent, pink - Extremities Exam Extremities exam: Positive for: normal inspection - Back Exam Back exam: NORMAL INSPECTION - Neurological Exam Neurological exam: Alert, CN II-XII Intact, Normal Gait, Oriented x3, Reflexes Normal - Psychiatric Exam Psychiatric exam: Normal Affect, Normal Mood - Skin Skin Exam: Dry, Intact, Normal Color, Warm Results - Vital Signs Recent Vital Signs: Last Vital Signs Temp 97.9 F 07/24/18 17:13 Pulse 63 07/24/18 17:13 Resp 20 07/24/18 17:13 BP 110/66 07/24/18 17:13 Pulse Ox 97 07/24/18 17:13 - Labs Result Diagrams: 07/24/18 13:20 07/24/18 13:20 Labs: Laboratory Results - last 24 hr 07/24/18 07/24/18 07/24/18 13:20 13:20 13:20 WBC 6.2 RBC 3.86 Hgb 9.8 L Hct 30.9 L MCV 80.1 MCH 25.4 MCHC 31.7 RDW 15.0 H Plt Count 194 MPV 9.1 Neut % (Auto) 60.1 Lymph % (Auto) 31.0 [place] % (Auto) 5.6 Eos % (Auto) 3.1 Baso % (Auto) 0.2 Lymph # (Auto) 1.9 [place] # (Auto) 0.4 Eos # (Auto) 0.2 Baso # (Auto) 0.01 Absolute Neuts (auto) 3.74 PT 12.4 INR 1.10 APTT 31.8 Sodium 138 Potassium 3.9 Chloride 103 Carbon Dioxide 29 Anion Gap 10 BUN 14 Creatinine 0.6 L Est GFR ( Amer) > 60 Est GFR (Non-Af Amer) > 60 POC Glucose (mg/dL) Random Glucose 108 Calcium 9.3 Phosphorus 4.9 H Magnesium 1.7 Total Bilirubin 0.3 AST 21 ALT 21 Alkaline Phosphatase 76 Total Protein 7.4 Albumin 3.9 Globulin 3.6 Albumin/Globulin Ratio 1.1 07/24/18 16:18 WBC RBC Hgb Hct MCV MCH MCHC RDW Plt Count MPV Neut % (Auto) Lymph % (Auto) [place] % (Auto) Eos % (Auto) Baso % (Auto) Lymph # (Auto) [place] # (Auto) Eos # (Auto) Baso # (Auto) Absolute Neuts (auto) PT INR APTT Sodium Potassium Chloride Carbon Dioxide Anion Gap BUN Creatinine Est GFR ( Amer) Est GFR (Non-Af Amer) POC Glucose (mg/dL) 139 H Random Glucose Calcium Phosphorus Magnesium Total Bilirubin AST ALT Alkaline Phosphatase Total Protein Albumin Globulin Albumin/Globulin Ratio Assessment & Plan - Assessment and Plan (Free Text) Plan: 58F w. hx of diverticulitis, s/p leary's on 05/24/18, came w stoma site pain. -Plan for OR tomorrow for reversal of colostomy -pt will need medical clearance -NPO -Bowel prep -d/w attending
[2018-07-24] MEDS: Insulin Lispro (humaLOG) LOW Coverage SC SCH ×2 (18:19→22:02)
--- NOTE | 2018-07-24 22:46 | CARD ---
APPROVED REPORT Date of service: 07/24/2018 EKG Measurement Heart [id number] <Conclusion> Normal sinus rhythm Diffuse minor NDSTT abnormalities Otherwise Normal ECG
[2018-07-25 06:46] LABS: BASO # 0.01 K/mm3 (0.0-2.0); BASO % 0.2 % (0.0-3.0); EOS # 0.2 (0.0-0.7); EOS % 3.2 % (1.5-5.0); HEMOGLOBIN 9.9 g/dL (12.0-16.0); LYMPH # 1.9 (1.2-3.4); LYMPH % 32.3 % (22.0-35.0); MEAN CELL VOLUME 79.7 fl (80.0-105.0); MEAN CORPUSCULAR HEMOGLOBIN 24.8 pg (25.0-35.0); MEAN CORPUSCULAR HGB CONC 31.1 g/dl (31.0-37.0); MEAN PLATELET VOLUME 9.7 fl (7.0-11.0); MONO # 0.4 (0.1-0.6); MONO % 6.1 % (1.0-6.0); RBC 3.99 10^6/uL (3.5-6.1); RED CELL DISTRIBUTION WIDTH 14.8 % (11.5-14.5); WHITE BLOOD COUNT 5.9 10^3/uL (4.5-11.0)
[2018-07-25 07:00] LABS: BLOOD UREA NITROGEN 10 mg/dL (7-21); CALCIUM 9.6 mg/dL (8.4-10.5); GFR NON-AFRICAN AMERICAN > 60
[2018-07-25] MEDS ORDERED: Bupivacaine 0.5% 50 ML IJ ONE (11:14)
--- NOTE | 2018-07-25 11:29 | CP.PCM.PN ---
<Nato Stone - Last Filed: 07/25/18 13:55> Subjective - Date & Time of Evaluation Date of Evaluation: 07/25/18 Time of Evaluation: 07:00 - Subjective Subjective: Nato Stone DO, PGY-1 Hospitalist Progress Note for Dr. Villarreal Patient was seen and examined at bedside this AM. She states she is still having persistent discomfort at the colostomy site. Plan is for OR today for colostomy reversal. Objective - Vital Signs/Intake and Output Vital Signs (last 24 hours): Temp Pulse Resp BP Pulse Ox 97.9 F 74 20 129/79 97 07/25/18 08:35 07/25/18 08:35 07/25/18 08:35 07/25/18 08:35 07/25/18 08:35 Intake and Output: 07/25/18 07/25/18 06:59 18:59 Intake Total 0 Balance 0 - Medications Medications: Current Medications Acetaminophen (Tylenol 325mg Tab) 650 mg PO Q6H PRN PRN Reason: Pain, moderate (4-7) Dextrose (Dextrose 50% Inj) 0 ml IV STAT PRN; Protocol PRN Reason: Hypoglycemia Protocol Famotidine (Pepcid) 20 mg IVP DAILY [facility] Hydralazine HCl (Apresoline) 5 mg IVP Q6 PRN PRN Reason: Systolic Blood Pressure Dextrose (Dextrose 5% In Water 1000 Ml) 1,000 mls @ 0 mls/hr IV .Q0M PRN; Protocol PRN Reason: Hypoglycemia Protocol Insulin Human Lispro (Humalog Low) 0 units SC ACHS [facility]; Protocol Last Admin: 07/24/18 22:02 Dose: Not Given Petrolatum (Desitin Maximum Strength Topical 40% Oint) 0 gm TOP Q4H PRN PRN Reason: Rash - Labs Labs: 07/25/18 06:00 07/25/18 06:00 PT 12.4 SECONDS (9.4-12.5) 07/24/18 13:20 INR 1.10 07/24/18 13:20 APTT 31.8 Seconds (26.9-38.3) 07/24/18 13:20 - Constitutional Appears: Non-toxic, No Acute Distress - Head Exam Head Exam: ATRAUMATIC, NORMOCEPHALIC - Eye Exam Eye Exam: EOMI, Normal appearance, PERRL - ENT Exam ENT Exam: Mucous Membranes Moist - Neck Exam Neck Exam: Full ROM, Normal Inspection - Respiratory Exam Respiratory Exam: Clear to Ausculation Bilateral, NORMAL BREATHING PATTERN. absent: Rales, Rhonchi, Wheezes - Cardiovascular Exam Cardiovascular Exam: REGULAR RHYTHM, RRR, +S1, +S2. absent: Gallop, Rubs, Murmur - GI/Abdominal Exam GI & Abdominal Exam: Soft, Normal Bowel Sounds. absent: Tenderness - Extremities Exam Extremities Exam: Full ROM, Normal Inspection - Back Exam Back Exam: NORMAL INSPECTION - Neurological Exam Neurological Exam: Alert, Awake, Oriented x3 - Psychiatric Exam Psychiatric exam: Normal Affect, Normal Mood - Skin Skin Exam: Dry, Intact, Warm Assessment and Plan - Assessment and Plan (Free Text) Assessment: 58 yo F with PMH of HTN, DM2, and diverticulitis (s/p Amaury procedure 04/2018) presented for persistent pain and discomfort at colostomy site. Per surgery, plan is for OR today for colostomy reversal. Plan: Colostomy Site Pain OR today for colostomy reversal Post-op pain control Surgery following, recs appreciated Microcytic anemia Likely 2/2 iron deficiency anemia Prior iron studies consistent with iron deficiency Will repeat iron studies tomorrow AM Will start feosol 325 mg BID post-op Hx HTN PRN hydralazine Restart home norvasc and HCTZ post-op Hx DM2 Hold home metformin while admitted ISS DVT/GI PPX: SCDs/pepcid Full Code NPO until after surgery, ADAT afterwards Monitor on med/surg Patient seen, examined, and plan discussed with my attending Dr. Phil Stone, D.Blaine. IM Resident PGY-1 Pager: [phone] <Rae Villarreal - Last Filed: 07/25/18 14:00> Objective - Vital Signs/Intake and Output Vital Signs (last 24 hours): Temp Pulse Resp BP Pulse Ox 97.9 F 74 20 129/79 97 07/25/18 08:35 07/25/18 08:35 07/25/18 08:35 07/25/18 08:35 07/25/18 08:35 Intake and Output: 07/25/18 07/25/18 06:59 18:59 Intake Total 0 Balance 0 - Medications Medications: Current Medications Acetaminophen (Tylenol 325mg Tab) 650 mg PO Q6H PRN PRN Reason: Pain, moderate (4-7) Dextrose (Dextrose 50% Inj) 0 ml IV STAT PRN; Protocol PRN Reason: Hypoglycemia Protocol Famotidine (Pepcid) 20 mg IVP DAILY [facility] Last Admin: 07/25/18 11:51 Dose: Not Given Hydralazine HCl (Apresoline) 5 mg IVP Q6 PRN PRN Reason: Systolic Blood Pressure Dextrose (Dextrose 5% In Water 1000 Ml) 1,000 mls @ 0 mls/hr IV .Q0M PRN; Protocol PRN Reason: Hypoglycemia Protocol Insulin Human Lispro (Humalog Low) 0 units SC ACHS [facility]; Protocol Last Admin: 07/25/18 11:51 Dose: Not Given Petrolatum (Desitin Maximum Strength Topical 40% Oint) 0 gm TOP Q4H PRN PRN Reason: Rash - Labs Labs: 07/25/18 06:00 07/25/18 06:00 PT 12.4 SECONDS (9.4-12.5) 07/24/18 13:20 INR 1.10 07/24/18 13:20 APTT 31.8 Seconds (26.9-38.3) 07/24/18 13:20 Attending/Attestation - Attestation I have personally seen and examined this patient.: Yes I have fully participated in the care of the patient.: Yes I have reviewed all pertinent clinical information, including history, physical exam and plan: Yes Notes (Text): 07/25/18 13:58 58 year old female with past medical history of hypertension, diabetes, and recurrent diverticulitis s/p Amaury's procedure (05/15) who presented with complaint of persistent pain and discomfort at colostomy site. She was seen by surgery and plan is for OR today for colostomy reversal. Rae Villarreal MD Hospitalist.
[2018-07-25] MEDS: Insulin Lispro (humaLOG) LOW Coverage SC SCH ×4 (11:50→22:51)
[2018-07-25] MEDS ORDERED: Midazolam 2 MG/2 ML VIAL ONE (13:45)
[2018-07-25] MEDS ORDERED: Succinylcholine 200 mg/10 ml Inj IV ONE (13:45)
[2018-07-25] MEDS ORDERED: Propofol 10 mg/ml Inj (20 ML) ONE ×2 (13:45→17:33)
[2018-07-25] MEDS ORDERED: Lidocaine PF 2% (5 ml) Inj (For Cardiac Arrhy) ONE (13:48)
[2018-07-25] MEDS ORDERED: Rocuronium 10 mg/ml (5 ml) ONE ×2 (14:00→16:21)
[2018-07-25] MEDS ORDERED: metroNIDAZOLE IV 500 mg/100 ml 500 MG/100 ML BAG ONE (14:06)
[2018-07-25] MEDS ORDERED: Phenylephrine 10 mg/ml Inj ONE ×2 (14:06→14:15)
[2018-07-25] MEDS ORDERED: Bupivacaine 0.25% 50 ML INJ IJ ONE ×2 (14:50→15:16)
[2018-07-25] MEDS ORDERED: Glycopyrrolate 0.2 mg/ml (2ml vial) ONE (18:05)
[2018-07-25] MEDS ORDERED: Neostigmine Methylsulfate 3mg/3ml Syringe IV ONE (18:18)
[2018-07-25] MEDS ORDERED: HYDROmorphone 0.5 mg/0.5 ml ISec IVP PRN (18:31)
--- NOTE | 2018-07-25 18:34 | PCM.SURG1 ---
Surgeon's Initial Post Op Note - Surgeon's Notes Surgeon: Cara Roll Over Press Operator: Crystal PGY4, PGY2 Type of Anesthesia: General Endo, Local Pre-Operative Diagnosis: Diverticulitis, s/p euceda's Operative Findings: End colostomy, dense adhesions Post-Operative Diagnosis: same Operation Performed: Open colostomy reversal w. side to side colorectal anastomosis Specimen/Specimens Removed: colostomy Estimated Blood Loss: EBL {In ML}: 100 Blood Products Given: N/A Drains Used: Isael Post-Op Condition: Good Date of Surgery/Procedure: 07/25/18 Time of Surgery/Procedure: 18:33
[2018-07-25] MEDS ORDERED: Lactated Ringer's 1,000 ML IV SCH (18:45)
[2018-07-25] MEDS ORDERED: HYDROmorphone 0.2 mg/ml (30ml) 30 ML IV PRN ×2 (18:45→20:56)
[2018-07-25] MEDS ORDERED: HYDROmorphone 0.5 mg/0.5 ml ISec ONE (20:03)
[2018-07-25] MEDS ORDERED: HYDROmorphone 1 mg/ml ISec IVP STA (20:57)
[2018-07-25] MEDS: Lactated Ringer's 1,000 ML IV SCH (21:00)
[2018-07-25] MEDS: HYDROmorphone 0.2 mg/ml (30ml) 30 ML IV PRN (21:22)
[2018-07-25] MEDS: cefOXitin 2 GM in Sodium Chloride 0.9% 100 ML IV SCH (21:38)
[2018-07-25] MEDS: metroNIDAZOLE IV 500 mg/100 ml 500 MG/100 ML BAG IVPB SCH (22:44)
[2018-07-26] MEDS: metroNIDAZOLE IV 500 mg/100 ml 500 MG/100 ML BAG IVPB SCH (05:15)
[2018-07-26] MEDS: cefOXitin 2 GM in Sodium Chloride 0.9% 100 ML IV SCH ×2 (05:18→12:11)
[2018-07-26] MEDS ORDERED: Lactated Ringer's 500 ML IV SCH (05:45)
[2018-07-26 06:29] LABS: HEMOGLOBIN 10.5 g/dL (12.0-16.0); LYMPH # 0.8 (1.2-3.4); LYMPH % 6.9 % (22.0-35.0); MEAN CELL VOLUME 79.6 fl (80.0-105.0); MEAN CORPUSCULAR HEMOGLOBIN 24.6 pg (25.0-35.0); MEAN CORPUSCULAR HGB CONC 30.9 g/dl (31.0-37.0); MEAN PLATELET VOLUME 9.8 fl (7.0-11.0); MONO # 0.6 (0.1-0.6); MONO % 5.3 % (1.0-6.0); RBC 4.27 10^6/uL (3.5-6.1); RED CELL DISTRIBUTION WIDTH 14.8 % (11.5-14.5)
[2018-07-26 07:21] LABS: IRON 11 ug/dL (45-180)
[2018-07-26 07:22] LABS: ALBUMIN 3.4 g/dL (3.0-4.8); ALT/SGPT 29 U/L (7-56); AST/SGOT 26 U/L (14-36); BLOOD UREA NITROGEN 11 mg/dL (7-21); CALCIUM 8.7 mg/dL (8.4-10.5); GFR NON-AFRICAN AMERICAN 57
[2018-07-26 07:31] LABS: % IRON SATURATION 5 % (20-55); TOTAL IRON BINDING CAPACITY 238 ug/dL (265-497)
[2018-07-26] MEDS: Insulin Lispro (humaLOG) LOW Coverage SC SCH ×4 (07:50→21:31)
[2018-07-26] MEDS ORDERED: Magnesium Sulfate 2 gm/50 ml 2 GM/50 ML BAG IVPB ONE (09:00)
[2018-07-26] MEDS: Enoxaparin 40 mg Syringe SC SCH (09:52)
--- NOTE | 2018-07-26 11:41 | CP.PCM.PN ---
<Nato Stone - Last Filed: 07/26/18 15:29> Subjective - Date & Time of Evaluation Date of Evaluation: 07/26/18 Time of Evaluation: 11:38 - Subjective Subjective: Nato Stone DO, PGY-1 Hospitalist Progress Note for Dr. Villarreal Patient was seen and examined at bedside this AM. She reports having some pain at the incision site last night but that it has improved since then. She is currently using dilaudid TWIST MAKER for pain control. She states she has only had ice chips so far which she has tolerated. She admits to flatus but has not had a BM yet. She has remained afebrile overnight and denies chills, CP, SOB, cough, nausea/vomiting/diarrhea. Objective - Vital Signs/Intake and Output Vital Signs (last 24 hours): Temp Pulse Resp BP Pulse Ox 98.6 F 64 20 135/65 97 07/26/18 08:36 07/26/18 09:52 07/26/18 08:36 07/26/18 09:52 07/26/18 08:36 Intake and Output: 07/26/18 07/26/18 06:59 18:59 Intake Total 3080 0 Output Total 183 153 Balance 2897 -153 - Medications Medications: Current Medications Acetaminophen (Tylenol 325mg Tab) 650 mg PO Q6H PRN PRN Reason: Pain, moderate (4-7) Amlodipine Besylate (Norvasc) 5 mg PO DAILY [facility] Last Admin: 07/26/18 09:52 Dose: 5 mg Aspirin (Ecotrin) 81 mg PO DAILY [facility] Last Admin: 07/26/18 09:52 Dose: 81 mg Dextrose (Dextrose 50% Inj) 0 ml IV STAT PRN; Protocol PRN Reason: Hypoglycemia Protocol Docusate Sodium (Colace) 100 mg PO BID [facility] Last Admin: 07/26/18 09:52 Dose: 100 mg Enoxaparin Sodium (Lovenox) 40 mg SC DAILY [facility]; Protocol Last Admin: 07/26/18 09:52 Dose: 40 mg Famotidine (Pepcid) 20 mg IVP DAILY [facility] Last Admin: 07/26/18 09:52 Dose: 20 mg Hydralazine HCl (Apresoline) 5 mg IVP Q6 PRN PRN Reason: Systolic Blood Pressure Hydrochlorothiazide (Microzide) 12.5 mg PO DAILY [facility] Last Admin: 07/26/18 09:53 Dose: 12.5 mg Dextrose (Dextrose 5% In Water 1000 Ml) 1,000 mls @ 0 mls/hr IV .Q0M PRN; Protocol PRN Reason: Hypoglycemia Protocol Lactated Ringer's (Lactated Ringer's) 1,000 mls @ 125 mls/hr IV .Q8H [facility] Last Admin: 07/25/18 21:00 Dose: 125 mls/hr Metronidazole (Flagyl) 500 mg in 100 mls @ 100 mls/hr IVPB Q8 [facility]; Protocol Stop: 07/26/18 14:59 Last Admin: 07/26/18 05:15 Dose: 100 mls/hr Cefoxitin Sodium 2 gm/ Sodium (Chloride) 100 mls @ 100 mls/hr IV Q8H [facility]; Protocol Stop: 07/26/18 12:14 Last Admin: 07/26/18 05:18 Dose: 100 mls/hr Hydromorphone HCl (Dilaudid 0.2 Mg/Ml Medical Cost Consultant) 30 mls @ 0 mls/hr IV PRN PRN; Protocol PRN Reason: TWIST MAKER PER MD ORDER Last Admin: 07/25/18 21:22 Dose: 1 mls/hr Insulin Human Lispro (Humalog Low) 0 units SC ACHS [facility]; Protocol Last Admin: 07/26/18 07:50 Dose: Not Given Ondansetron HCl (Zofran Inj) 4 mg IVP Q6 PRN PRN Reason: Nausea/Vomiting Petrolatum (Desitin Maximum Strength Topical 40% Oint) 0 gm TOP Q4H PRN PRN Reason: Rash - Labs Labs: 07/26/18 06:00 07/26/18 06:00 PT 12.4 SECONDS (9.4-12.5) 07/24/18 13:20 INR 1.10 07/24/18 13:20 APTT 31.8 Seconds (26.9-38.3) 07/24/18 13:20 - Constitutional Appears: Non-toxic, No Acute Distress - Head Exam Head Exam: ATRAUMATIC, NORMOCEPHALIC - Eye Exam Eye Exam: EOMI, Normal appearance, PERRL - ENT Exam ENT Exam: Mucous Membranes Moist - Neck Exam Neck Exam: Full ROM, Normal Inspection - Respiratory Exam Respiratory Exam: Clear to Ausculation Bilateral, NORMAL BREATHING PATTERN. absent: Rales, Rhonchi, Wheezes - Cardiovascular Exam Cardiovascular Exam: REGULAR RHYTHM, RRR, +S1, +S2. absent: Gallop, Rubs, Murmur - GI/Abdominal Exam GI & Abdominal Exam: Soft Additional comments: incision sites clean, dry, intact - Extremities Exam Extremities Exam: Normal Inspection. absent: Pedal Edema - Back Exam Back Exam: NORMAL INSPECTION - Neurological Exam Neurological Exam: Alert, Awake, Oriented x3 - Psychiatric Exam Psychiatric exam: Normal Affect, Normal Mood - Skin Skin Exam: Dry, Intact, Warm Assessment and Plan - Assessment and Plan (Free Text) Assessment: 58 yo F with PMH of HTN, DM2, and diverticulitis (s/p Amaury procedure 04/2018) presented for persistent pain and discomfort at colostomy site. She is now s/p colostomy reversal with lysis of adhesions and open appendectomy POD 1. Plan: Colostomy Site Pain S/p colostomy reversal with lysis of adhesions and open appendectomy POD 1 Continue pain management per surgery OOB as tolerated, PT IS use Surgery following, recs appreciated Microcytic anemia Likely 2/2 iron deficiency anemia Post-op H/H stable at 10.5/24 Will continue to monitor Consider feosol supplementation as needed once patient is able to tolerate PO Hypomagnesemia Likely 2/2 perioperative fluid/electrolyte loss Replaced Recheck in AM Hx HTN PRN IV hydralazine Restart home norvasc and HCTZ once able to tolerate PO Hx DM2 Hold home metformin while admitted ISS DVT/GI PPX: SCDs and lovenox/pepcid Full Code Ice chips only per surgery recs, advance diet per surgery recs Monitor on med/surg Patient seen, examined, and plan discussed with my attending Dr. Phil Stone, DJuan MiguelO. IM Resident PGY-1 Pager: [phone] <Rae Villarreal - Last Filed: 07/26/18 16:26> Objective - Vital Signs/Intake and Output Vital Signs (last 24 hours): Temp Pulse Resp BP Pulse Ox 98.6 F 64 20 135/65 97 07/26/18 08:36 07/26/18 09:52 07/26/18 08:36 07/26/18 09:52 07/26/18 08:36 Intake and Output: 07/26/18 07/26/18 06:59 18:59 Intake Total 3080 30 Output Total 183 153 Balance 2897 -123 - Medications Medications: Current Medications Acetaminophen (Tylenol 325mg Tab) 650 mg PO Q6H PRN PRN Reason: Pain, moderate (4-7) Amlodipine Besylate (Norvasc) 5 mg PO DAILY [facility] Last Admin: 07/26/18 09:52 Dose: 5 mg Aspirin (Ecotrin) 81 mg PO DAILY [facility] Last Admin: 07/26/18 09:52 Dose: 81 mg Dextrose (Dextrose 50% Inj) 0 ml IV STAT PRN; Protocol PRN Reason: Hypoglycemia Protocol Docusate Sodium (Colace) 100 mg PO BID [facility] Last Admin: 07/26/18 09:52 Dose: 100 mg Enoxaparin Sodium (Lovenox) 40 mg SC DAILY [facility]; Protocol Last Admin: 07/26/18 09:52 Dose: 40 mg Famotidine (Pepcid) 20 mg IVP DAILY [facility] Last Admin: 07/26/18 09:52 Dose: 20 mg Hydralazine HCl (Apresoline) 5 mg IVP Q6 PRN PRN Reason: Systolic Blood Pressure Hydrochlorothiazide (Microzide) 12.5 mg PO DAILY [facility] Last Admin: 07/26/18 09:53 Dose: 12.5 mg Dextrose (Dextrose 5% In Water 1000 Ml) 1,000 mls @ 0 mls/hr IV .Q0M PRN; Protocol PRN Reason: Hypoglycemia Protocol Lactated Ringer's (Lactated Ringer's) 1,000 mls @ 125 mls/hr IV .Q8H [facility] Last Admin: 07/25/18 21:00 Dose: 125 mls/hr Hydromorphone HCl (Dilaudid 0.2 Mg/Ml Medical Cost Consultant) 30 mls @ 0 mls/hr IV PRN PRN; Protocol PRN Reason: TWIST MAKER PER MD ORDER Last Admin: 07/26/18 15:19 Dose: 1 mls/hr Insulin Human Lispro (Humalog Low) 0 units SC ACHS [facility]; Protocol Last Admin: 07/26/18 16:00 Dose: Not Given Ondansetron HCl (Zofran Inj) 4 mg IVP Q6 PRN PRN Reason: Nausea/Vomiting Petrolatum (Desitin Maximum Strength Topical 40% Oint) 0 gm TOP Q4H PRN PRN Reason: Rash - Labs Labs: 07/26/18 06:00 07/26/18 06:00 PT 12.4 SECONDS (9.4-12.5) 07/24/18 13:20 INR 1.10 07/24/18 13:20 APTT 31.8 Seconds (26.9-38.3) 07/24/18 13:20 Attending/Attestation - Attestation I have personally seen and examined this patient.: Yes I have fully participated in the care of the patient.: Yes I have reviewed all pertinent clinical information, including history, physical exam and plan: Yes Notes (Text): 07/26/18 16:23 58 year old female with past medical history of hypertension, diabetes, and recurrent diverticulitis s/p Amaury's procedure (05/15) who presented with complaint of persistent pain and discomfort at colostomy site. She was seen by surgery and is s/p colostomy reversal and lysis of adhesions POD #1. Continue with analgesics and diet advancement as per surgery. She is currently on TWIST MAKER and NPO. Will replete and repeat lytes (magnesium). Mild leukocytosis likely reactive. Will monitor. Family is at bedside and questions were answered. Rae Villarreal MD Hospitalist.
--- NOTE | 2018-07-26 12:40 | CP.PCM.PN ---
Subjective - Date & Time of Evaluation Date of Evaluation: 07/26/18 Time of Evaluation: 12:35 - Subjective Subjective: Surgery: Dr. Joyce Pt seen and examined. Resting comfortably in bed. Pain controlled. No N/V. No Flatus/BM. Objective - Vital Signs/Intake and Output Vital Signs (last 24 hours): Temp Pulse Resp BP Pulse Ox 98.6 F 64 20 135/65 97 07/26/18 08:36 07/26/18 09:52 07/26/18 08:36 07/26/18 09:52 07/26/18 08:36 Intake and Output: 07/26/18 07/26/18 06:59 18:59 Intake Total 3080 0 Output Total 183 153 Balance 2897 -153 - Medications Medications: Current Medications Acetaminophen (Tylenol 325mg Tab) 650 mg PO Q6H PRN PRN Reason: Pain, moderate (4-7) Amlodipine Besylate (Norvasc) 5 mg PO DAILY [facility] Last Admin: 07/26/18 09:52 Dose: 5 mg Aspirin (Ecotrin) 81 mg PO DAILY [facility] Last Admin: 07/26/18 09:52 Dose: 81 mg Dextrose (Dextrose 50% Inj) 0 ml IV STAT PRN; Protocol PRN Reason: Hypoglycemia Protocol Docusate Sodium (Colace) 100 mg PO BID [facility] Last Admin: 07/26/18 09:52 Dose: 100 mg Enoxaparin Sodium (Lovenox) 40 mg SC DAILY [facility]; Protocol Last Admin: 07/26/18 09:52 Dose: 40 mg Famotidine (Pepcid) 20 mg IVP DAILY [facility] Last Admin: 07/26/18 09:52 Dose: 20 mg Hydralazine HCl (Apresoline) 5 mg IVP Q6 PRN PRN Reason: Systolic Blood Pressure Hydrochlorothiazide (Microzide) 12.5 mg PO DAILY [facility] Last Admin: 07/26/18 09:53 Dose: 12.5 mg Dextrose (Dextrose 5% In Water 1000 Ml) 1,000 mls @ 0 mls/hr IV .Q0M PRN; Protocol PRN Reason: Hypoglycemia Protocol Lactated Ringer's (Lactated Ringer's) 1,000 mls @ 125 mls/hr IV .Q8H [facility] Last Admin: 07/25/18 21:00 Dose: 125 mls/hr Hydromorphone HCl (Dilaudid 0.2 Mg/Ml Bridge Builder) 30 mls @ 0 mls/hr IV PRN PRN; Protocol PRN Reason: INFECTION PREVENTION COORDINATOR PER MD ORDER Last Admin: 07/25/18 21:22 Dose: 1 mls/hr Insulin Human Lispro (Humalog Low) 0 units SC [facility]; Protocol Last Admin: 07/26/18 12:06 Dose: Not Given Ondansetron HCl (Zofran Inj) 4 mg IVP Q6 PRN PRN Reason: Nausea/Vomiting Petrolatum (Desitin Maximum Strength Topical 40% Oint) 0 gm TOP Q4H PRN PRN Reason: Rash - Labs Labs: 07/26/18 06:00 07/26/18 06:00 PT 12.4 SECONDS (9.4-12.5) 07/24/18 13:20 INR 1.10 07/24/18 13:20 APTT 31.8 Seconds (26.9-38.3) 07/24/18 13:20 - Constitutional Appears: Non-toxic, No Acute Distress - Head Exam Head Exam: ATRAUMATIC, NORMOCEPHALIC - Eye Exam Eye Exam: EOMI - ENT Exam ENT Exam: Mucous Membranes Moist - Neck Exam Neck Exam: Full ROM - Respiratory Exam Respiratory Exam: NORMAL BREATHING PATTERN. absent: Accessory Muscle Use, Respiratory Distress - GI/Abdominal Exam GI & Abdominal Exam: Soft, Tenderness (deborah-incisonal ). absent: Distended, Firm, Guarding, Rigid, Rebound Additional comments: Carolyn in place - Neurological Exam Neurological Exam: Alert, Awake, Oriented x3 - Psychiatric Exam Psychiatric exam: Normal Affect, Normal Mood - Skin Skin Exam: Dry, Normal Color, Warm Assessment and Plan - Assessment and Plan (Free Text) Assessment: 58F w. hx of diverticulitis / euceda's, POD#1 euceda's reversal -D/C bauer -npo w. ice chips / meds -Monitor bowel fxn -c/w IVF and pain meds -OOB / PT/ IS use -DVT ppx -continue to monitor carolyn output, 45cc/24hr serosang -d/w attending Zemaitis PGY4
[2018-07-26 13:07] LABS: FERRITIN 55.5 ng/mL
--- NOTE | 2018-07-26 13:49 | PN ---
DATE: 07/26/2018 SUBJECTIVE: Kiana Sales was seen, is status post low anterior resection and anastomosis with takedown of the splenic flexure. Her hemoglobin dropped a little bit, so she is little bit dry, but now is making adequate urine. Hemoglobin is normal. She is lethargic, but has very little pain. We will plan to get her out of bed. She can have little liquids, but in general doing very well. Sean Joyce MD
[2018-07-26] MEDS: HYDROmorphone 0.2 mg/ml (30ml) 30 ML IV PRN (15:19)
[2018-07-26] MEDS: Lactated Ringer's 1,000 ML IV SCH (17:19)
[2018-07-26] MEDS ORDERED: Potassium Ch 20mEq in D5W 50 ML in Dextrose 5%/0.45% NS 1,000 ML IV SCH (20:00)
[2018-07-26] MEDS ORDERED: Lactated Ringer's 1,000 ML IV SCH (20:00)
[2018-07-26] MEDS: Potassium Chloride 20 MEQ in Dextrose 5%/0.45% NS 1,000 ML IV SCH (21:28)
[2018-07-27] MEDS: Potassium Chloride 20 MEQ in Dextrose 5%/0.45% NS 1,000 ML IV SCH ×2 (05:31→17:34)
[2018-07-27 06:53] LABS: BASO # 0.01 K/mm3 (0.0-2.0); BASO % 0.1 % (0.0-3.0); EOS # 0.1 (0.0-0.7); EOS % 1.1 % (1.5-5.0); HEMOGLOBIN 8.6 g/dL (12.0-16.0); LYMPH # 0.8 (1.2-3.4); LYMPH % 9.1 % (22.0-35.0); MEAN CELL VOLUME 80.5 fl (80.0-105.0); MEAN CORPUSCULAR HEMOGLOBIN 25.4 pg (25.0-35.0); MEAN CORPUSCULAR HGB CONC 31.5 g/dl (31.0-37.0); MEAN PLATELET VOLUME 9.6 fl (7.0-11.0); MONO # 0.6 (0.1-0.6); MONO % 6.6 % (1.0-6.0); RBC 3.39 10^6/uL (3.5-6.1); RED CELL DISTRIBUTION WIDTH 15.2 % (11.5-14.5); WHITE BLOOD COUNT 8.5 10^3/uL (4.5-11.0)
[2018-07-27 06:57] LABS: ALT/SGPT 32 U/L (7-56); AST/SGOT 30 U/L (14-36); BLOOD UREA NITROGEN 9 mg/dL (7-21); CALCIUM 8.4 mg/dL (8.4-10.5); GFR NON-AFRICAN AMERICAN > 60
--- NOTE | 2018-07-27 07:48 | OP ---
PROCEDURE DATE: 07/25/2018 PREOPERATIVE DIAGNOSIS: Diverticulitis status post Amaury's procedure. POSTOPERATIVE DIAGNOSIS: Diverticulitis status post Amaury's procedure. PROCEDURE: Open reversal of Amaury's procedure. SURGEON: Sean Joyce MD TIRE TRUCKER: Deepak Rojas DO, PGY-4 and Ravinder Marino DO, PGY-2 ANESTHESIOLOGIST: Philip Norris MD ANESTHESIA: General and local. ESTIMATED BLOOD LOSS: 100 mL. SPECIMEN: Colostomy. INDICATIONS FOR PROCEDURE: This is a 58-year-old female with a history of diverticulitis who underwent a Amaury's procedure who now wished to have the colostomy reversed. After discussing risks and benefits, informed consent was obtained and open reversal of the colostomy was elected. DESCRIPTION OF PROCEDURE: The patient was taken to the operating room and placed on the operating table in the supine position. The patient underwent general anesthesia. All appropriate monitoring devices were in place. SCDs were applied and then the patient was placed into the lithotomy position, at which time the Grey was placed. The patient was then prepped and draped in the usual sterile fashion. Next, a time-out was conducted verifying correct patient, procedure, site, position and laterality. Next, a midline incision was made from subxiphoid area to the pubis. The incision was deepened down to the fascia. The fascia was grasped with Trupti's x2 and incised. We then entered into the abdominal cavity, at which time dense adhesions were encountered. A considerable amount of time was spent meticulously dissecting out and performing lysis of adhesions. The small bowel was eventually freely mobilized and we were able to retract it over to the right side of the abdomen. At this time, we were then able to take down the end-colostomy. The end-colostomy was taken down and the splenic flexure was mobilized. At this point, the proximal colon was found to lie wide nicely next to the distal rectum in a tension free, [id number] manner and [id number] anastomosis was elected. A 3-0 stay sutures were used proximally and distally for the colon and rectum. Next, enterotomies were made with the Bovie and the MARCELLA 55 blue load was inserted and the anastomosis was created. The anastomosis was found to be widely patent and this was closed with a TA-60 stapler. Next, the small bowel was run and some serosal tears encountered. These were closed with 3-0 silk sutures. Next, the abdomen was thoroughly irrigated. Hemostasis was confirmed. The omentum was then placed over the anastomosis site and the colostomy site was closed with a #1 PDS. At this point, catheters were placed under direct visualization. Next, the Isael drain was placed and held the right lower quadrant. Then, the abdomen was closed in fashion with a #1 looped PDS. Subcutaneous was closed with 3-0 interrupted Vicryl and then the skin was closed with krystina. The skin at the stoma site was partially closed with a Vicryl purse-string suture and wound was packed with iodoform packing. Surgical sites were then covered with sterile gauze. At this point, the procedure was done and the patient was transferred to the PACU in good condition. The patient tolerated the procedure well. Deepak Rojas DO Sean Joyce MD
[2018-07-27] MEDS: Insulin Lispro (humaLOG) LOW Coverage SC SCH ×4 (08:40→21:31)
[2018-07-27] MEDS: Enoxaparin 40 mg Syringe SC SCH (10:18)
--- NOTE | 2018-07-27 10:20 | CP.PCM.PN ---
Subjective - Date & Time of Evaluation Date of Evaluation: 07/27/18 Time of Evaluation: 10:20 - Subjective Subjective: Surgery Progress note- Dr. Joyce Patient seen and examined at bedside. Pain well controlled on ROLL COVERER and OnQ. + OOB to toilet yesterday. Freely voiding urine. Denies flatus/BM. Incision C/D/I no strike through. Old stoma site packing changed w/ iodiform. Carolyn drain, serosang, 30cc. Objective - Vital Signs/Intake and Output Vital Signs (last 24 hours): Temp Pulse Resp BP Pulse Ox 99.8 F H 105 H 20 120/82 98 07/27/18 06:00 07/27/18 06:00 07/27/18 06:00 07/27/18 06:00 07/27/18 06:00 Intake and Output: 07/27/18 07/27/18 06:59 18:59 Intake Total 2250 Output Total 705 Balance 1545 - Medications Medications: Current Medications Acetaminophen (Tylenol 325mg Tab) 650 mg PO Q6H PRN PRN Reason: Pain, moderate (4-7) Amlodipine Besylate (Norvasc) 5 mg PO DAILY [facility] Last Admin: 07/26/18 09:52 Dose: 5 mg Aspirin (Ecotrin) 81 mg PO DAILY [facility] Last Admin: 07/26/18 09:52 Dose: 81 mg Dextrose (Dextrose 50% Inj) 0 ml IV STAT PRN; Protocol PRN Reason: Hypoglycemia Protocol Docusate Sodium (Colace) 100 mg PO BID [facility] Last Admin: 07/26/18 17:05 Dose: 100 mg Enoxaparin Sodium (Lovenox) 40 mg SC DAILY [facility]; Protocol Last Admin: 07/26/18 09:52 Dose: 40 mg Famotidine (Pepcid) 20 mg IVP DAILY [facility] Last Admin: 07/26/18 09:52 Dose: 20 mg Hydralazine HCl (Apresoline) 5 mg IVP Q6 PRN PRN Reason: Systolic Blood Pressure Hydrochlorothiazide (Microzide) 12.5 mg PO DAILY [facility] Last Admin: 07/26/18 09:53 Dose: 12.5 mg Dextrose (Dextrose 5% In Water 1000 Ml) 1,000 mls @ 0 mls/hr IV .Q0M PRN; Protocol PRN Reason: Hypoglycemia Protocol Potassium Chloride 20 meq/ (Dextrose/Sodium Chloride) 1,010 mls @ 125 mls/hr IV .Q8H5M [facility] Last Admin: 07/27/18 05:31 Dose: 125 mls/hr Ibuprofen (Motrin Tab) 600 mg PO Q6H PRN PRN Reason: Pain, moderate (4-7) Insulin Human Lispro (Humalog Low) 0 units SC ACHS [facility]; Protocol Last Admin: 07/27/18 08:40 Dose: 2 units Lidocaine (Lidoderm) 1 ea TD DAILY [facility] Ondansetron HCl (Zofran Inj) 4 mg IVP Q6 PRN PRN Reason: Nausea/Vomiting Petrolatum (Desitin Maximum Strength Topical 40% Oint) 0 gm TOP Q4H PRN PRN Reason: Rash Tramadol HCl (Ultram) 50 mg PO TID PRN PRN Reason: Pain, severe (8-10) - Labs Labs: 07/27/18 06:00 07/27/18 06:00 PT 12.4 SECONDS (9.4-12.5) 07/24/18 13:20 INR 1.10 07/24/18 13:20 APTT 31.8 Seconds (26.9-38.3) 07/24/18 13:20 - Constitutional Appears: Non-toxic, No Acute Distress - Eye Exam Eye Exam: EOMI. absent: Scleral icterus - ENT Exam ENT Exam: Mucous Membranes Moist - Respiratory Exam Respiratory Exam: NORMAL BREATHING PATTERN. absent: Accessory Muscle Use, Respiratory Distress - Cardiovascular Exam Cardiovascular Exam: REGULAR RHYTHM. absent: Bradycardia, Tachycardia - GI/Abdominal Exam GI & Abdominal Exam: Soft, Tenderness (some midline tenderness. ). absent: Distended, Firm, Guarding, Rigid - Neurological Exam Neurological Exam: Alert, Awake, Oriented x3 - Psychiatric Exam Psychiatric exam: Normal Affect - Skin Skin Exam: Intact, Warm Assessment and Plan - Assessment and Plan (Free Text) Assessment: 58F s/p colostomy reversal w/ extensive lysis of adhesions POD#2 Plan: - de-esclate analgesia; d/c ROLL COVERER start Oral meds - Aggressive incentive spirometer - Clear liquid diet - monitor bowel function - monitor carolyn output - OOB and ambulate - further rec[facility]
[2018-07-27] MEDS ORDERED: Bupivacaine 0.25% 50 ML INJ IJ ONE (10:45)
[2018-07-27] MEDS: Lidocaine 5% Patch TD SCH (11:31)
[2018-07-27] MEDS: 0.125% Bupivacaine in 0.9% NS 750mL On Q Dual pump IJ SCH (11:57)
--- NOTE | 2018-07-27 15:22 | CP.PCM.PN ---
<Nato Stone - Last Filed: 07/27/18 17:00> Subjective - Date & Time of Evaluation Date of Evaluation: 07/27/18 Time of Evaluation: 07:10 - Subjective Subjective: Nato Stone DO, PGY-1 Hospitalist Progress Note for Dr. Villarreal Patient was seen and examined at bedside this AM. She reports persistent pain at the surgical site but it is improving. She is tolerating liquid diet without nausea/vomiting thus far. Abdominal dressing changed per surgical team. She admits to flatus but has not had a BM yet. She otherwise has no complaints and denies fever/chills, CP, SOB, nausea/vomiting/diarrhea. Objective - Vital Signs/Intake and Output Vital Signs (last 24 hours): Temp Pulse Resp BP Pulse Ox 100.7 F H 105 H 20 120/82 98 07/27/18 13:18 07/27/18 10:19 07/27/18 06:00 07/27/18 10:19 07/27/18 06:00 Intake and Output: 07/27/18 07/27/18 06:59 18:59 Intake Total 2250 Output Total 705 Balance 1545 - Medications Medications: Current Medications Acetaminophen (Tylenol 325mg Tab) 650 mg PO Q6H PRN PRN Reason: Pain, moderate (4-7) Last Admin: 07/27/18 13:18 Dose: 650 mg Amlodipine Besylate (Norvasc) 5 mg PO DAILY [facility] Last Admin: 07/27/18 10:19 Dose: 5 mg Aspirin (Ecotrin) 81 mg PO DAILY [facility] Last Admin: 07/27/18 10:18 Dose: 81 mg Dextrose (Dextrose 50% Inj) 0 ml IV STAT PRN; Protocol PRN Reason: Hypoglycemia Protocol Docusate Sodium (Colace) 100 mg PO BID [facility] Last Admin: 07/27/18 10:17 Dose: 100 mg Enoxaparin Sodium (Lovenox) 40 mg SC DAILY [facility]; Protocol Last Admin: 07/27/18 10:18 Dose: 40 mg Famotidine (Pepcid) 20 mg IVP DAILY [facility] Last Admin: 07/27/18 10:19 Dose: 20 mg Hydralazine HCl (Apresoline) 5 mg IVP Q6 PRN PRN Reason: Systolic Blood Pressure Hydrochlorothiazide (Microzide) 12.5 mg PO DAILY [facility] Last Admin: 07/27/18 10:19 Dose: 12.5 mg Dextrose (Dextrose 5% In Water 1000 Ml) 1,000 mls @ 0 mls/hr IV .Q0M PRN; Protocol PRN Reason: Hypoglycemia Protocol Potassium Chloride 20 meq/ (Dextrose/Sodium Chloride) 1,010 mls @ 125 mls/hr IV .Q8H5M [facility] Last Admin: 07/27/18 05:31 Dose: 125 mls/hr Ibuprofen (Motrin Tab) 600 mg PO Q6H PRN PRN Reason: Pain, moderate (4-7) Insulin Human Lispro (Humalog Low) 0 units SC ACHS [facility]; Protocol Last Admin: 07/27/18 11:59 Dose: 1 units Lidocaine (Lidoderm) 1 ea TD DAILY [facility] Last Admin: 07/27/18 11:31 Dose: 1 ea Ondansetron HCl (Zofran Inj) 4 mg IVP Q6 PRN PRN Reason: Nausea/Vomiting Petrolatum (Desitin Maximum Strength Topical 40% Oint) 0 gm TOP Q4H PRN PRN Reason: Rash Tramadol HCl (Ultram) 50 mg PO TID PRN PRN Reason: Pain, severe (8-10) - Labs Labs: 07/27/18 06:00 07/27/18 06:00 PT 12.4 SECONDS (9.4-12.5) 07/24/18 13:20 INR 1.10 07/24/18 13:20 APTT 31.8 Seconds (26.9-38.3) 07/24/18 13:20 - Constitutional Appears: Non-toxic, No Acute Distress - Head Exam Head Exam: ATRAUMATIC, NORMOCEPHALIC - Eye Exam Eye Exam: EOMI, Normal appearance, PERRL - ENT Exam ENT Exam: Mucous Membranes Moist - Neck Exam Neck Exam: Full ROM, Normal Inspection - Respiratory Exam Respiratory Exam: Clear to Ausculation Bilateral, NORMAL BREATHING PATTERN. absent: Rales, Rhonchi, Wheezes - Cardiovascular Exam Cardiovascular Exam: REGULAR RHYTHM, RRR, +S1, +S2. absent: Gallop, Rubs, Murmur - GI/Abdominal Exam GI & Abdominal Exam: Soft, Tenderness, Normal Bowel Sounds. absent: Guarding, Rebound - Extremities Exam Extremities Exam: Full ROM, Normal Inspection. absent: Pedal Edema - Back Exam Back Exam: Full ROM, NORMAL INSPECTION - Neurological Exam Neurological Exam: Alert, Awake, Oriented x3 - Psychiatric Exam Psychiatric exam: Normal Affect, Normal Mood - Skin Skin Exam: Dry, Intact, Warm Assessment and Plan - Assessment and Plan (Free Text) Assessment: 58 yo F with PMH of HTN, DM2, and diverticulitis (s/p Amaury procedure 04/2018) presented for persistent pain and discomfort at colostomy site. She is now s/p colostomy reversal with lysis of adhesions and open appendectomy POD 2. Plan: Colostomy Site Pain S/p colostomy reversal with lysis of adhesions and open appendectomy POD 2 Continue pain management per surgery Continue OOB as tolerated, PT, IS use Per surgery, ok to start on liquid diet, tolerating well so far Dressing changes per surgery team Surgery following, recs appreciated Microcytic anemia Likely 2/2 iron deficiency anemia with perioperative losses vs dilutional effect H/H decreased this AM compared to yesterday at 8.6/27.3 Repeat H/H this afternoon stable at 8.7/27.9 Will hold iron supplementation for now as patient is post-op Will recommend iron supplementation on discharge Hypomagnesemia Likely 2/2 perioperative fluid/electrolyte loss Replaced Recheck in AM Hx HTN PRN IV hydralazine Have not restarted home meds as BP has been stable Restart home meds as needed Hx DM2 Hold home metformin while admitted ISS DVT/GI PPX: SCDs and lovenox/pepcid Full Code Liquid diet advance as tolerated per surgery recs Monitor on med/surg Patient seen, examined, and plan discussed with my attending Dr. Phil Stone D.O. IM Resident PGY-1 Pager: [phone] <Rae Villarreal - Last Filed: 07/27/18 18:29> Objective - Vital Signs/Intake and Output Vital Signs (last 24 hours): Temp Pulse Resp BP Pulse Ox 98.6 F 107 H 20 135/94 H 100 07/27/18 17:33 07/27/18 17:33 07/27/18 17:33 07/27/18 17:33 07/27/18 17:33 Intake and Output: 07/27/18 07/27/18 06:59 18:59 Intake Total 2250 Output Total 705 Balance 1545 - Medications Medications: Current Medications Acetaminophen (Tylenol 325mg Tab) 650 mg PO Q6H PRN PRN Reason: Pain, moderate (4-7) Last Admin: 07/27/18 13:18 Dose: 650 mg Amlodipine Besylate (Norvasc) 5 mg PO DAILY [facility] Last Admin: 07/27/18 10:19 Dose: 5 mg Aspirin (Ecotrin) 81 mg PO DAILY [facility] Last Admin: 07/27/18 10:18 Dose: 81 mg Dextrose (Dextrose 50% Inj) 0 ml IV STAT PRN; Protocol PRN Reason: Hypoglycemia Protocol Docusate Sodium (Colace) 100 mg PO BID [facility] Last Admin: 07/27/18 17:34 Dose: 100 mg Enoxaparin Sodium (Lovenox) 40 mg SC DAILY [facility]; Protocol Last Admin: 07/27/18 10:18 Dose: 40 mg Famotidine (Pepcid) 20 mg IVP DAILY [facility] Last Admin: 07/27/18 10:19 Dose: 20 mg Hydralazine HCl (Apresoline) 5 mg IVP Q6 PRN PRN Reason: Systolic Blood Pressure Hydrochlorothiazide (Microzide) 12.5 mg PO DAILY [facility] Last Admin: 07/27/18 10:19 Dose: 12.5 mg Dextrose (Dextrose 5% In Water 1000 Ml) 1,000 mls @ 0 mls/hr IV .Q0M PRN; Protocol PRN Reason: Hypoglycemia Protocol Potassium Chloride 20 meq/ (Dextrose/Sodium Chloride) 1,010 mls @ 125 mls/hr IV .Q8H5M [facility] Last Admin: 07/27/18 17:34 Dose: 125 mls/hr Ibuprofen (Motrin Tab) 600 mg PO Q6H PRN PRN Reason: Pain, moderate (4-7) Insulin Human Lispro (Humalog Low) 0 units SC ACHS [facility]; Protocol Last Admin: 07/27/18 17:34 Dose: 1 units Lidocaine (Lidoderm) 1 ea TD DAILY [facility] Last Admin: 07/27/18 11:31 Dose: 1 ea Ondansetron HCl (Zofran Inj) 4 mg IVP Q6 PRN PRN Reason: Nausea/Vomiting Petrolatum (Desitin Maximum Strength Topical 40% Oint) 0 gm TOP Q4H PRN PRN Reason: Rash Tramadol HCl (Ultram) 50 mg PO TID PRN PRN Reason: Pain, severe (8-10) Last Admin: 07/27/18 18:02 Dose: 50 mg - Labs Labs: 07/27/18 16:47 07/27/18 06:00 PT 12.4 SECONDS (9.4-12.5) 07/24/18 13:20 INR 1.10 07/24/18 13:20 APTT 31.8 Seconds (26.9-38.3) 07/24/18 13:20 Attending/Attestation - Attestation I have personally seen and examined this patient.: Yes I have fully participated in the care of the patient.: Yes I have reviewed all pertinent clinical information, including history, physical exam and plan: Yes Notes (Text): 07/27/18 18:28 58 year old female with past medical history of hypertension, diabetes, and recurrent diverticulitis s/p Amaury's procedure (05/15) who presented with complaint of persistent pain and discomfort at colostomy site. She was seen by surgery and is s/p colostomy reversal and lysis of adhesions POD #2. Diet advanced today to liquids per surgery. Will begin to taper pain medications and advance diet as tolerated. She is noted to have postoperative anemia. Will repeat H/H and monitor; transfuse as needed. Rae Villarreal MD Hospitalist.
[2018-07-27 16:55] LABS: HEMOGLOBIN 8.7 g/dL (12.0-16.0)
[2018-07-28] MEDS: Potassium Chloride 20 MEQ in Dextrose 5%/0.45% NS 1,000 ML IV SCH ×2 (04:10→21:00)
[2018-07-28 06:27] LABS: BASO # 0.01 K/mm3 (0.0-2.0); BASO % 0.2 % (0.0-3.0); EOS # 0.1 (0.0-0.7); EOS % 2.1 % (1.5-5.0); HEMOGLOBIN 8.7 g/dL (12.0-16.0); LYMPH # 1.1 (1.2-3.4); LYMPH % 19.5 % (22.0-35.0); MEAN CELL VOLUME 79.8 fl (80.0-105.0); MEAN CORPUSCULAR HEMOGLOBIN 24.8 pg (25.0-35.0); MEAN CORPUSCULAR HGB CONC 31.1 g/dl (31.0-37.0); MEAN PLATELET VOLUME 9.5 fl (7.0-11.0); MONO # 0.3 (0.1-0.6); MONO % 5.9 % (1.0-6.0); RBC 3.51 10^6/uL (3.5-6.1); WHITE BLOOD COUNT 5.6 10^3/uL (4.5-11.0)
[2018-07-28 07:23] LABS: ALB/GLOB RATIO 0.9 (1.1-1.8); ALBUMIN 3.3 g/dL (3.0-4.8); ALT/SGPT 25 U/L (7-56); AST/SGOT 27 U/L (14-36); BLOOD UREA NITROGEN 3 mg/dL (7-21); GFR NON-AFRICAN AMERICAN > 60
[2018-07-28] MEDS: Insulin Lispro (humaLOG) LOW Coverage SC SCH ×3 (08:33→22:01)
[2018-07-28] MEDS: Enoxaparin 40 mg Syringe SC SCH (09:35)
[2018-07-28] MEDS: Lidocaine 5% Patch TD SCH (09:35)
--- NOTE | 2018-07-28 12:14 | CP.PCM.PN ---
Subjective - Date & Time of Evaluation Date of Evaluation: 07/28/18 Time of Evaluation: 12:12 - Subjective Subjective: Surgery Progress note- Dr. Joyce Patient seen and examined at bedside. Yesterday pt had a temp of 100.7 in the AM. Afebrile overnight. + OOB and ambulting. Requeires more work with incentive spirometer. Voiding freely. denies nausea, vomiting. No flatus or BM as of now. Packing of old stoma site packed this AM. Isael < 10cc serosang/24hrs Objective - Vital Signs/Intake and Output Vital Signs (last 24 hours): Temp Pulse Resp BP Pulse Ox 98.2 F 99 H 17 141/97 H 97 07/28/18 08:29 07/28/18 09:36 07/28/18 08:29 07/28/18 09:36 07/28/18 08:29 Intake and Output: 07/28/18 07/28/18 06:59 18:59 Intake Total 0 Output Total 1276 Balance -1276 - Medications Medications: Current Medications Acetaminophen (Tylenol 325mg Tab) 650 mg PO Q6H PRN PRN Reason: Pain, moderate (4-7) Last Admin: 07/28/18 11:32 Dose: 650 mg Amlodipine Besylate (Norvasc) 5 mg PO DAILY [facility] Last Admin: 07/28/18 09:36 Dose: 5 mg Aspirin (Ecotrin) 81 mg PO DAILY [facility] Last Admin: 07/28/18 09:35 Dose: 81 mg Dextrose (Dextrose 50% Inj) 0 ml IV STAT PRN; Protocol PRN Reason: Hypoglycemia Protocol Docusate Sodium (Colace) 100 mg PO BID [facility] Last Admin: 07/28/18 09:34 Dose: 100 mg Enoxaparin Sodium (Lovenox) 40 mg SC DAILY [facility]; Protocol Last Admin: 07/28/18 09:35 Dose: 40 mg Famotidine (Pepcid) 20 mg IVP DAILY [facility] Last Admin: 07/28/18 09:36 Dose: 20 mg Hydralazine HCl (Apresoline) 5 mg IVP Q6 PRN PRN Reason: Systolic Blood Pressure Hydrochlorothiazide (Microzide) 12.5 mg PO DAILY [facility] Last Admin: 07/28/18 09:36 Dose: 12.5 mg Dextrose (Dextrose 5% In Water 1000 Ml) 1,000 mls @ 0 mls/hr IV .Q0M PRN; Protocol PRN Reason: Hypoglycemia Protocol Potassium Chloride 20 meq/ (Dextrose/Sodium Chloride) 1,010 mls @ 60 mls/hr IV .[id number] [facility] Last Admin: 07/28/18 04:10 Dose: 60 mls/hr Ibuprofen (Motrin Tab) 600 mg PO Q6H PRN PRN Reason: Pain, moderate (4-7) Insulin Human Lispro (Humalog Low) 0 units SC ACHS [facility]; Protocol Last Admin: 07/28/18 08:33 Dose: Not Given Lidocaine (Lidoderm) 1 ea TD DAILY [facility] Last Admin: 07/28/18 09:35 Dose: 1 ea Ondansetron HCl (Zofran Inj) 4 mg IVP Q6 PRN PRN Reason: Nausea/Vomiting Last Admin: 07/27/18 22:48 Dose: 4 mg Petrolatum (Desitin Maximum Strength Topical 40% Oint) 0 gm TOP Q4H PRN PRN Reason: Rash Tramadol HCl (Ultram) 50 mg PO TID PRN PRN Reason: Pain, severe (8-10) Last Admin: 07/27/18 18:02 Dose: 50 mg - Labs Labs: 07/28/18 06:00 07/28/18 06:00 PT 12.4 SECONDS (9.4-12.5) 07/24/18 13:20 INR 1.10 07/24/18 13:20 APTT 31.8 Seconds (26.9-38.3) 07/24/18 13:20 - Constitutional Appears: Non-toxic, No Acute Distress - Head Exam Head Exam: ATRAUMATIC - Eye Exam Eye Exam: EOMI. absent: Scleral icterus - ENT Exam ENT Exam: Mucous Membranes Moist - Respiratory Exam Respiratory Exam: NORMAL BREATHING PATTERN. absent: Accessory Muscle Use, Respiratory Distress - GI/Abdominal Exam GI & Abdominal Exam: Soft, Tenderness (deborah-incisional tendrness improving. OnQ in place). absent: Distended, Firm, Guarding, Rigid - Back Exam Back Exam: absent: CVA tenderness (L), CVA tenderness (R) - Neurological Exam Neurological Exam: Alert, Awake, Oriented x3 - Psychiatric Exam Psychiatric exam: Normal Affect - Skin Skin Exam: Intact, Warm Assessment and Plan - Assessment and Plan (Free Text) Assessment: 58F s/p Colostomy reversal POD #2 Plan: - Monitor bowel function - once bowel function returns will advance diet - aggressive PT, oob and ambulate - daily colostomy packing changes - will continue to monitor - analgesia PRN - leave drain in for now - d/[facility]
--- NOTE | 2018-07-28 12:52 | CP.PCM.PN ---
<Nato Stone - Last Filed: 07/28/18 12:52> Subjective - Date & Time of Evaluation Date of Evaluation: 07/28/18 Time of Evaluation: 07:15 - Subjective Subjective: Nato Stone DO, PGY-1 Hospitalist Progress Note for Dr. Villarreal Patient was seen and examined at bedside this AM. She states that she is still feeling bloated this AM but otherwise denies nausea/vomiting. She admits that she still feels constipated and is not passing gas. She was afebrile overnight and denies chills, CP, SOB, cough. Objective - Vital Signs/Intake and Output Vital Signs (last 24 hours): Temp Pulse Resp BP Pulse Ox 98.2 F 99 H 17 141/97 H 97 07/28/18 08:29 07/28/18 09:36 07/28/18 08:29 07/28/18 09:36 07/28/18 08:29 Intake and Output: 07/28/18 07/28/18 06:59 18:59 Intake Total 0 Output Total 1276 Balance -1276 - Medications Medications: Current Medications Acetaminophen (Tylenol 325mg Tab) 650 mg PO Q6H PRN PRN Reason: Pain, moderate (4-7) Last Admin: 07/28/18 11:32 Dose: 650 mg Amlodipine Besylate (Norvasc) 5 mg PO DAILY [facility] Last Admin: 07/28/18 09:36 Dose: 5 mg Aspirin (Ecotrin) 81 mg PO DAILY [facility] Last Admin: 07/28/18 09:35 Dose: 81 mg Dextrose (Dextrose 50% Inj) 0 ml IV STAT PRN; Protocol PRN Reason: Hypoglycemia Protocol Docusate Sodium (Colace) 100 mg PO BID [facility] Last Admin: 07/28/18 09:34 Dose: 100 mg Enoxaparin Sodium (Lovenox) 40 mg SC DAILY [facility]; Protocol Last Admin: 07/28/18 09:35 Dose: 40 mg Famotidine (Pepcid) 20 mg IVP DAILY [facility] Last Admin: 07/28/18 09:36 Dose: 20 mg Hydralazine HCl (Apresoline) 5 mg IVP Q6 PRN PRN Reason: Systolic Blood Pressure Hydrochlorothiazide (Microzide) 12.5 mg PO DAILY [facility] Last Admin: 07/28/18 09:36 Dose: 12.5 mg Dextrose (Dextrose 5% In Water 1000 Ml) 1,000 mls @ 0 mls/hr IV .Q0M PRN; Protocol PRN Reason: Hypoglycemia Protocol Potassium Chloride 20 meq/ (Dextrose/Sodium Chloride) 1,010 mls @ 60 mls/hr IV .[id number] [facility] Last Admin: 07/28/18 04:10 Dose: 60 mls/hr Ibuprofen (Motrin Tab) 600 mg PO Q6H PRN PRN Reason: Pain, moderate (4-7) Insulin Human Lispro (Humalog Low) 0 units SC ACHS [facility]; Protocol Last Admin: 07/28/18 08:33 Dose: Not Given Lidocaine (Lidoderm) 1 ea TD DAILY [facility] Last Admin: 07/28/18 09:35 Dose: 1 ea Ondansetron HCl (Zofran Inj) 4 mg IVP Q6 PRN PRN Reason: Nausea/Vomiting Last Admin: 07/27/18 22:48 Dose: 4 mg Petrolatum (Desitin Maximum Strength Topical 40% Oint) 0 gm TOP Q4H PRN PRN Reason: Rash Tramadol HCl (Ultram) 50 mg PO TID PRN PRN Reason: Pain, severe (8-10) Last Admin: 07/27/18 18:02 Dose: 50 mg - Labs Labs: 07/28/18 06:00 07/28/18 06:00 PT 12.4 SECONDS (9.4-12.5) 07/24/18 13:20 INR 1.10 07/24/18 13:20 APTT 31.8 Seconds (26.9-38.3) 07/24/18 13:20 - Constitutional Appears: Non-toxic, No Acute Distress - Head Exam Head Exam: ATRAUMATIC, NORMOCEPHALIC - Eye Exam Eye Exam: EOMI, Normal appearance, PERRL - ENT Exam ENT Exam: Mucous Membranes Moist - Neck Exam Neck Exam: Full ROM, Normal Inspection - Respiratory Exam Respiratory Exam: Clear to Ausculation Bilateral. absent: Rales, Rhonchi, Wheezes - Cardiovascular Exam Cardiovascular Exam: REGULAR RHYTHM, RRR, +S1, +S2. absent: Gallop, Rubs, Murmur - GI/Abdominal Exam GI & Abdominal Exam: Soft, Normal Bowel Sounds. absent: Guarding Additional comments: surgical wound clean, dry, intact - Extremities Exam Extremities Exam: Normal Inspection. absent: Pedal Edema - Back Exam Back Exam: NORMAL INSPECTION - Neurological Exam Neurological Exam: Alert, Awake, Oriented x3 - Psychiatric Exam Psychiatric exam: Normal Affect, Normal Mood - Skin Skin Exam: Dry, Intact, Warm Assessment and Plan - Assessment and Plan (Free Text) Assessment: 58 yo F with PMH of HTN, DM2, and diverticulitis (s/p Amaury procedure 04/2018) presented for persistent pain and discomfort at colostomy site. She is now s/p colostomy reversal with lysis of adhesions and open appendectomy POD 3. Plan: S/p colostomy reversal with lysis of adhesions and open appendectomy POD 2 Continue pain management per surgery Encourage as much ambulation as possible, as patient is still not passing flatus Advanced to full liquid diet Dressing changes per surgery team Microcytic anemia Likely 2/2 iron deficiency anemia with perioperative losses vs dilutional effect Has remained stable this AM at 8.7/28, continue to monitor Will hold iron supplementation for now as patient is post-op Will recommend iron supplementation on discharge Hypomagnesemia Replaced Recheck in AM Hx HTN PRN IV hydralazine Has been elevated overnight and this AM Restart home HCTZ and amlodipine Hx DM2 Continue ISS DVT/GI PPX: SCDs and lovenox/pepcid Full Code Full liquid diet, advance to soft tomorrow Monitor on med/surg Patient seen, examined, and plan discussed with my attending Dr. Phil Stone D.O. IM Resident PGY-1 Pager: [phone] <Rae Villarreal - Last Filed: 07/28/18 14:42> Objective - Vital Signs/Intake and Output Vital Signs (last 24 hours): Temp Pulse Resp BP Pulse Ox 98.2 F 99 H 17 141/97 H 97 07/28/18 08:29 07/28/18 09:36 07/28/18 08:29 07/28/18 09:36 07/28/18 08:29 Intake and Output: 07/28/18 07/28/18 06:59 18:59 Intake Total 0 Output Total 1276 Balance -1276 - Medications Medications: Current Medications Acetaminophen (Tylenol 325mg Tab) 650 mg PO Q6H PRN PRN Reason: Pain, moderate (4-7) Last Admin: 07/28/18 11:32 Dose: 650 mg Amlodipine Besylate (Norvasc) 5 mg PO DAILY [facility] Last Admin: 07/28/18 09:36 Dose: 5 mg Aspirin (Ecotrin) 81 mg PO DAILY [facility] Last Admin: 07/28/18 09:35 Dose: 81 mg Dextrose (Dextrose 50% Inj) 0 ml IV STAT PRN; Protocol PRN Reason: Hypoglycemia Protocol Docusate Sodium (Colace) 100 mg PO BID [facility] Last Admin: 07/28/18 09:34 Dose: 100 mg Enoxaparin Sodium (Lovenox) 40 mg SC DAILY [facility]; Protocol Last Admin: 07/28/18 09:35 Dose: 40 mg Famotidine (Pepcid) 20 mg IVP DAILY [facility] Last Admin: 07/28/18 09:36 Dose: 20 mg Hydralazine HCl (Apresoline) 5 mg IVP Q6 PRN PRN Reason: Systolic Blood Pressure Hydrochlorothiazide (Microzide) 12.5 mg PO DAILY [facility] Last Admin: 07/28/18 09:36 Dose: 12.5 mg Dextrose (Dextrose 5% In Water 1000 Ml) 1,000 mls @ 0 mls/hr IV .Q0M PRN; Protocol PRN Reason: Hypoglycemia Protocol Potassium Chloride 20 meq/ (Dextrose/Sodium Chloride) 1,010 mls @ 60 mls/hr IV .[id number] [facility] Last Admin: 07/28/18 04:10 Dose: 60 mls/hr Ibuprofen (Motrin Tab) 600 mg PO Q6H PRN PRN Reason: Pain, moderate (4-7) Insulin Human Lispro (Humalog Low) 0 units SC ACHS [facility]; Protocol Last Admin: 07/28/18 14:08 Dose: Not Given Lidocaine (Lidoderm) 1 ea TD DAILY [facility] Last Admin: 07/28/18 09:35 Dose: 1 ea Ondansetron HCl (Zofran Inj) 4 mg IVP Q6 PRN PRN Reason: Nausea/Vomiting Last Admin: 07/27/18 22:48 Dose: 4 mg Petrolatum (Desitin Maximum Strength Topical 40% Oint) 0 gm TOP Q4H PRN PRN Reason: Rash Tramadol HCl (Ultram) 50 mg PO TID PRN PRN Reason: Pain, severe (8-10) Last Admin: 07/27/18 18:02 Dose: 50 mg - Labs Labs: 07/28/18 06:00 07/28/18 06:00 PT 12.4 SECONDS (9.4-12.5) 07/24/18 13:20 INR 1.10 07/24/18 13:20 APTT 31.8 Seconds (26.9-38.3) 07/24/18 13:20 Attending/Attestation - Attestation I have personally seen and examined this patient.: Yes I have fully participated in the care of the patient.: Yes I have reviewed all pertinent clinical information, including history, physical exam and plan: Yes Notes (Text): 07/28/18 14:35 58 year old female with past medical history of hypertension, diabetes, and recurrent diverticulitis s/p Amaury's procedure (05/15) who presented with complaint of persistent pain and discomfort at colostomy site. She was seen by surgery and is s/p colostomy reversal and lysis of adhesions POD #3. Continue with diet as tolerated and advance as per surgery. She is noted to have postoperative anemia which is stable; will continue to monitor for now. Encouraged out of bed to chair and incentive spirometer. Rae Villarreal MD Hospitalist.
[2018-07-28] MEDS ORDERED: Magnesium Sulfate 2 gm/50 ml 2 GM/50 ML BAG IVPB ONE ×2 (12:55→15:31)
[2018-07-28] MEDS: 0.125% Bupivacaine in 0.9% NS 750mL On Q Dual pump IJ SCH (14:07)
[2018-07-28] MEDS: Potassium & Sodium Phosphate PO SCH (17:40)
[2018-07-29] MEDS ORDERED: Magnesium Hydroxide Susp 30 ml UD PO ONE (02:34)
[2018-07-29] MEDS: Simethicone 80 mg Chewtab PO PRN ×3 (03:01→21:39)
[2018-07-29 06:51] LABS: BASO # 0.01 K/mm3 (0.0-2.0); BASO % 0.2 % (0.0-3.0); EOS # 0.2 (0.0-0.7); EOS % 3.1 % (1.5-5.0); HEMOGLOBIN 8.8 g/dL (12.0-16.0); LYMPH # 1.4 (1.2-3.4); LYMPH % 23.4 % (22.0-35.0); MEAN CELL VOLUME 79.2 fl (80.0-105.0); MEAN CORPUSCULAR HEMOGLOBIN 24.4 pg (25.0-35.0); MEAN CORPUSCULAR HGB CONC 30.9 g/dl (31.0-37.0); MEAN PLATELET VOLUME 9.2 fl (7.0-11.0); MONO # 0.5 (0.1-0.6); RBC 3.6 10^6/uL (3.5-6.1); RED CELL DISTRIBUTION WIDTH 15.1 % (11.5-14.5); WHITE BLOOD COUNT 5.8 10^3/uL (4.5-11.0)
[2018-07-29 06:52] LABS: ALB/GLOB RATIO 0.9 (1.1-1.8); ALBUMIN 3.5 g/dL (3.0-4.8); ALT/SGPT 19 U/L (7-56); AST/SGOT 25 U/L (14-36); BLOOD UREA NITROGEN 5 mg/dL (7-21); GFR NON-AFRICAN AMERICAN > 60
--- NOTE | 2018-07-29 07:50 | CP.PCM.PN ---
Subjective - Date & Time of Evaluation Date of Evaluation: 07/29/18 Time of Evaluation: 07:50 - Subjective Subjective: Resident Progress Note for Surgery: Dr. Joyce Patient examined at bedside. No acute events overnight. Patient complains of abdominal discomfort. Has not passed flatus or had bowel movement yet. Denies fevers, chills, nausea, vomiting. Packing changed this AM. Objective - Vital Signs/Intake and Output Vital Signs (last 24 hours): Temp Pulse Resp BP Pulse Ox 98.7 F 96 H 20 126/92 H 97 07/28/18 16:32 07/28/18 16:32 07/28/18 16:32 07/28/18 16:32 07/28/18 16:32 Intake and Output: 07/29/18 07/29/18 06:59 18:59 Intake Total 60 Output Total 1125 Balance -1065 - Medications Medications: Current Medications Acetaminophen (Tylenol 325mg Tab) 650 mg PO Q6H PRN PRN Reason: Pain, moderate (4-7) Last Admin: 07/28/18 11:32 Dose: 650 mg Amlodipine Besylate (Norvasc) 5 mg PO DAILY [facility] Last Admin: 07/28/18 09:36 Dose: 5 mg Aspirin (Ecotrin) 81 mg PO DAILY [facility] Last Admin: 07/28/18 09:35 Dose: 81 mg Dextrose (Dextrose 50% Inj) 0 ml IV STAT PRN; Protocol PRN Reason: Hypoglycemia Protocol Docusate Sodium (Colace) 100 mg PO BID [facility] Last Admin: 07/28/18 17:40 Dose: 100 mg Enoxaparin Sodium (Lovenox) 40 mg SC DAILY [facility]; Protocol Last Admin: 07/28/18 09:35 Dose: 40 mg Famotidine (Pepcid) 20 mg IVP DAILY [facility] Last Admin: 07/28/18 09:36 Dose: 20 mg Hydralazine HCl (Apresoline) 5 mg IVP Q6 PRN PRN Reason: Systolic Blood Pressure Hydrochlorothiazide (Microzide) 12.5 mg PO DAILY [facility] Last Admin: 07/28/18 09:36 Dose: 12.5 mg Dextrose (Dextrose 5% In Water 1000 Ml) 1,000 mls @ 0 mls/hr IV .Q0M PRN; Protocol PRN Reason: Hypoglycemia Protocol Potassium Chloride 20 meq/ (Dextrose/Sodium Chloride) 1,010 mls @ 60 mls/hr IV .[id number] [facility] Last Admin: 07/28/18 21:00 Dose: 60 mls/hr Ibuprofen (Motrin Tab) 600 mg PO Q6H PRN PRN Reason: Pain, moderate (4-7) Insulin Human Lispro (Humalog Low) 0 units SC ACHS [facility]; Protocol Last Admin: 07/28/18 22:01 Dose: Not Given Lidocaine (Lidoderm) 1 ea TD DAILY [facility] Last Admin: 07/28/18 09:35 Dose: 1 ea Ondansetron HCl (Zofran Inj) 4 mg IVP Q6 PRN PRN Reason: Nausea/Vomiting Last Admin: 07/27/18 22:48 Dose: 4 mg Petrolatum (Desitin Maximum Strength Topical 40% Oint) 0 gm TOP Q4H PRN PRN Reason: Rash Potassium Phos/Sodium Phos (Neutra-Phos) 1 pkt PO TID [facility] Stop: 07/30/18 12:00 Last Admin: 07/28/18 17:40 Dose: 1 pkt Simethicone (Mylicon Chew Tab) 80 mg PO HS PRN PRN Reason: GI distress Last Admin: 07/29/18 03:01 Dose: 80 mg Tramadol HCl (Ultram) 50 mg PO TID PRN PRN Reason: Pain, severe (8-10) Last Admin: 07/27/18 18:02 Dose: 50 mg - Labs Labs: 07/29/18 06:00 07/29/18 06:00 PT 12.4 SECONDS (9.4-12.5) 07/24/18 13:20 INR 1.10 07/24/18 13:20 APTT 31.8 Seconds (26.9-38.3) 07/24/18 13:20 - Additional Findings Additional findings: - Constitutional Appears: Non-toxic, No Acute Distress - Head Exam Head Exam: ATRAUMATIC, NORMOCEPHALIC - Eye Exam Eye Exam: EOMI. absent: Scleral icterus - ENT Exam ENT Exam: Mucous Membranes Moist - Respiratory Exam Respiratory Exam: NORMAL BREATHING PATTERN. absent: Accessory Muscle Use, Respiratory Distress - GI/Abdominal Exam GI & Abdominal Exam: Soft, Tenderness (deborah-incisional tendrness improving, OnQ in place). absent: Distended, Firm, Guarding, Rigid - Neurological Exam Neurological Exam: Alert, Awake, Oriented x3 - Psychiatric Exam Psychiatric exam: Normal Affect - Skin Skin Exam: Intact, Warm Assessment and Plan - Assessment and Plan (Free Text) Assessment: Patient is a 58 year old female with past medical history of HTN, DM and diverticulitis s/p Leary's procedure on 04/2018, now s/p colostomy reversal POD#3. Plan: - afebrile overnight, no leukocytosis - encourage ambulation, PT - advance diet when bowel function returns - daily colostomy packing changes - Tylenol, morphine for pain - further management per primary - further recommendations per Dr. Isiah Quintero PGY-1
[2018-07-29] MEDS: Insulin Lispro (humaLOG) LOW Coverage SC SCH ×5 (08:06→21:59)
[2018-07-29] MEDS ORDERED: Morphine 2 mg/ml ISec IVP PRN (08:11)
[2018-07-29] MEDS: Enoxaparin 40 mg Syringe SC SCH ×2 (09:32→10:20)
[2018-07-29] MEDS: Lidocaine 5% Patch TD SCH (09:32)
[2018-07-29] MEDS: Potassium & Sodium Phosphate PO SCH ×3 (09:34→17:14)
[2018-07-29] MEDS ORDERED: Naloxone 0.4 mg/ml Inj (Adult) IVP ONE (09:54)
[2018-07-29] MEDS: 0.125% Bupivacaine in 0.9% NS 750mL On Q Dual pump IJ SCH (10:18)
--- NOTE | 2018-07-29 14:14 | CP.PCM.PN ---
<Nato Stone - Last Filed: 07/29/18 16:17> Subjective - Date & Time of Evaluation Date of Evaluation: 07/29/18 Time of Evaluation: 07:00 - Subjective Subjective: Nato Stone DO, PGY-1 Hospitalist Progress Note for Dr. Villarreal Patient was seen and examined at bedside this AM. On initial examination this AM, patient had just received a dose of 2 mg morphine IVP and was drowsy but responsive to painful stimuli. Following narcan administration, patient woke up Objective - Vital Signs/Intake and Output Vital Signs (last 24 hours): Temp Pulse Resp BP Pulse Ox 98.6 F 91 H 20 124/89 100 07/29/18 08:03 07/29/18 09:34 07/29/18 08:03 07/29/18 09:34 07/29/18 08:03 Intake and Output: 07/29/18 07/29/18 06:59 18:59 Intake Total 60 Output Total 1125 Balance -1065 - Medications Medications: Current Medications Acetaminophen (Tylenol 325mg Tab) 975 mg PO Q8H [facility] Last Admin: 07/29/18 09:35 Dose: Not Given Amlodipine Besylate (Norvasc) 5 mg PO DAILY [facility] Last Admin: 07/29/18 09:34 Dose: 5 mg Aspirin (Ecotrin) 81 mg PO DAILY [facility] Last Admin: 07/29/18 10:21 Dose: Not Given Dextrose (Dextrose 50% Inj) 0 ml IV STAT PRN; Protocol PRN Reason: Hypoglycemia Protocol Docusate Sodium (Colace) 100 mg PO BID [facility] Last Admin: 07/29/18 10:21 Dose: Not Given Enoxaparin Sodium (Lovenox) 40 mg SC DAILY [facility]; Protocol Last Admin: 07/29/18 10:20 Dose: Not Given Famotidine (Pepcid) 20 mg IVP DAILY [facility] Last Admin: 07/29/18 09:34 Dose: 20 mg Hydralazine HCl (Apresoline) 5 mg IVP Q6 PRN PRN Reason: Systolic Blood Pressure Hydrochlorothiazide (Microzide) 12.5 mg PO DAILY [facility] Last Admin: 07/29/18 10:20 Dose: Not Given Dextrose (Dextrose 5% In Water 1000 Ml) 1,000 mls @ 0 mls/hr IV .Q0M PRN; Protocol PRN Reason: Hypoglycemia Protocol Potassium Chloride 20 meq/ (Dextrose/Sodium Chloride) 1,010 mls @ 60 mls/hr IV .[id number] [facility] Last Admin: 07/28/18 21:00 Dose: 60 mls/hr Ibuprofen (Motrin Tab) 600 mg PO Q6H PRN PRN Reason: Pain, moderate (4-7) Last Admin: 07/29/18 08:35 Dose: 600 mg Insulin Human Lispro (Humalog Low) 0 units SC ACHS [facility]; Protocol Last Admin: 07/29/18 12:39 Dose: Not Given Lidocaine (Lidoderm) 1 ea TD DAILY [facility] Last Admin: 07/29/18 09:32 Dose: 1 ea Ondansetron HCl (Zofran Inj) 4 mg IVP Q6 PRN PRN Reason: Nausea/Vomiting Last Admin: 07/27/18 22:48 Dose: 4 mg Petrolatum (Desitin Maximum Strength Topical 40% Oint) 0 gm TOP Q4H PRN PRN Reason: Rash Potassium Phos/Sodium Phos (Neutra-Phos) 1 pkt PO TID [facility] Stop: 07/30/18 12:00 Last Admin: 07/29/18 09:34 Dose: 1 pkt Simethicone (Mylicon Chew Tab) 80 mg PO PCHS PRN PRN Reason: GI distress Last Admin: 07/29/18 08:35 Dose: 80 mg Tramadol HCl (Ultram) 50 mg PO TID PRN PRN Reason: Pain, severe (8-10) Last Admin: 07/27/18 18:02 Dose: 50 mg - Labs Labs: 07/29/18 06:00 07/29/18 06:00 PT 12.4 SECONDS (9.4-12.5) 07/24/18 13:20 INR 1.10 07/24/18 13:20 APTT 31.8 Seconds (26.9-38.3) 07/24/18 13:20 Assessment and Plan - Assessment and Plan (Free Text) Assessment: 58 yo F with PMH of HTN, DM2, and diverticulitis (s/p Amaury procedure 04/2018) presented for persistent pain and discomfort at colostomy site. She is now s/p colostomy reversal with lysis of adhesions and open appendectomy POD 4. RN reports patient had BM yesterday, however, patient reports she is still not passing gas. Plan: Post-op Ileus Abdomen plain film ordered for concern that patient continues to deny flatus Abdominal xray confirmed suspicion of post-op ileus Bowel regimen thus far has included colace, milk of magnesia F/u additional surgery recs for post-op ileus S/p colostomy reversal with lysis of adhesions and open appendectomy POD 4 Patient was found to be drowsy and somnolent s/p 2 mg morphine dose She woke up after dose of narcan Will avoid strong opioids for pain control, start ibuprofen Consider toradol if needed for severe pain F/u additional surgery recs Microcytic anemia Likely 2/2 iron deficiency anemia with perioperative losses vs dilutional effect Has remained stable this AM at 8.7/28, continue to monitor Will hold iron supplementation for now as patient is post-op Will recommend iron supplementation on discharge Hypomagnesemia Replaced Recheck in AM Hx HTN PRN IV hydralazine Improved since yesterday Restart home HCTZ and amlodipine Hx DM2 Continue ISS DVT/GI PPX: SCDs and lovenox/pepcid Full Code Continue liquid diet per surgery recs Monitor on med/surg Patient seen, examined, and plan discussed with my attending Homar Crenshaw.O. IM Resident PGY-1 Pager: [phone] <Rae Villarreal - Last Filed: 07/29/18 18:17> Objective - Vital Signs/Intake and Output Vital Signs (last 24 hours): Temp Pulse Resp BP Pulse Ox 98.1 F 89 20 130/89 97 07/29/18 15:50 07/29/18 15:50 07/29/18 15:50 07/29/18 15:50 07/29/18 15:50 Intake and Output: 07/29/18 07/29/18 06:59 18:59 Intake Total 60 Output Total 1125 Balance -1065 - Medications Medications: Current Medications Acetaminophen (Tylenol 325mg Tab) 975 mg PO Q8H [facility] Last Admin: 07/29/18 17:14 Dose: 975 mg Amlodipine Besylate (Norvasc) 5 mg PO DAILY [facility] Last Admin: 07/29/18 09:34 Dose: 5 mg Aspirin (Ecotrin) 81 mg PO DAILY [facility] Last Admin: 07/29/18 10:21 Dose: Not Given Dextrose (Dextrose 50% Inj) 0 ml IV STAT PRN; Protocol PRN Reason: Hypoglycemia Protocol Docusate Sodium (Colace) 100 mg PO BID [facility] Last Admin: 07/29/18 17:13 Dose: 100 mg Enoxaparin Sodium (Lovenox) 40 mg SC DAILY [facility]; Protocol Last Admin: 07/29/18 10:20 Dose: Not Given Famotidine (Pepcid) 20 mg IVP DAILY [facility] Last Admin: 07/29/18 09:34 Dose: 20 mg Hydralazine HCl (Apresoline) 5 mg IVP Q6 PRN PRN Reason: Systolic Blood Pressure Hydrochlorothiazide (Microzide) 12.5 mg PO DAILY [facility] Last Admin: 07/29/18 10:20 Dose: Not Given Dextrose (Dextrose 5% In Water 1000 Ml) 1,000 mls @ 0 mls/hr IV .Q0M PRN; Protocol PRN Reason: Hypoglycemia Protocol Potassium Chloride 20 meq/ (Dextrose/Sodium Chloride) 1,010 mls @ 60 mls/hr IV .[id number] [facility] Last Admin: 07/29/18 17:14 Dose: 60 mls/hr Ibuprofen (Motrin Tab) 600 mg PO Q6H PRN PRN Reason: Pain, moderate (4-7) Last Admin: 07/29/18 08:35 Dose: 600 mg Insulin Human Lispro (Humalog Low) 0 units SC ACHS [facility]; Protocol Last Admin: 07/29/18 17:13 Dose: Not Given Lidocaine (Lidoderm) 1 ea TD DAILY [facility] Last Admin: 07/29/18 09:32 Dose: 1 ea Ondansetron HCl (Zofran Inj) 4 mg IVP Q6 PRN PRN Reason: Nausea/Vomiting Last Admin: 07/27/18 22:48 Dose: 4 mg Petrolatum (Desitin Maximum Strength Topical 40% Oint) 0 gm TOP Q4H PRN PRN Reason: Rash Potassium Phos/Sodium Phos (Neutra-Phos) 1 pkt PO TID [facility] Stop: 07/30/18 12:00 Last Admin: 07/29/18 17:14 Dose: 1 pkt Simethicone (Mylicon Chew Tab) 80 mg PO HS PRN PRN Reason: GI distress Last Admin: 07/29/18 08:35 Dose: 80 mg Tramadol HCl (Ultram) 50 mg PO TID PRN PRN Reason: Pain, severe (8-10) Last Admin: 07/27/18 18:02 Dose: 50 mg - Labs Labs: 07/29/18 06:00 07/29/18 06:00 PT 12.4 SECONDS (9.4-12.5) 07/24/18 13:20 INR 1.10 07/24/18 13:20 APTT 31.8 Seconds (26.9-38.3) 07/24/18 13:20 Attending/Attestation - Attestation I have personally seen and examined this patient.: Yes I have fully participated in the care of the patient.: Yes I have reviewed all pertinent clinical information, including history, physical exam and plan: Yes Notes (Text): 07/29/18 18:13 58 year old female with past medical history of hypertension, diabetes, and recurrent diverticulitis s/p Amaury's procedure (05/15) who presented with complaint of persistent pain and discomfort at colostomy site. She was seen by surgery and is s/p colostomy reversal and lysis of adhesions POD #4. Continue with liquid diet as tolerated. Surgery to possible remove drain today. Earlier this morning she was lethargic after receiving dose of morphine; responded to narcan. Will hold narcotics for now; start motrin prn for pain. AXR reviewed which showed ileus. Surgery is following. She was noted to have postoperative anemia which is stable; will continue to monitor for now. Encouraged out of bed to chair and incentive spirometer. Rae Villarreal MD Hospitalist.
--- NOTE | 2018-07-29 14:47 | RAD ---
Date of service: 07/29/2018 HISTORY: Abdominal pain COMPARISON: None available. FINDINGS: BOWEL: Apparent recent postoperative changes with metallic skin closure krystina mid lower abdomen and pelvis extending just to the right of midline in the upper pelvis region. Distended air-filled loops of large and small bowel likely representing postoperative ileus. No evidence of gross free intraperitoneal air. BONES: Mild multilevel degenerative spondylosis of the lower thoracic and lumbar spine. OTHER FINDINGS: None. IMPRESSION: Findings most likely represent postoperative ileus
[2018-07-29] MEDS: Potassium Chloride 20 MEQ in Dextrose 5%/0.45% NS 1,000 ML IV SCH (17:14)
[2018-07-30] MEDS: Simethicone 80 mg Chewtab PO PRN ×3 (04:01→22:07)
--- NOTE | 2018-07-30 07:49 | CP.PCM.PN ---
Subjective - Date & Time of Evaluation Date of Evaluation: 07/30/18 Time of Evaluation: 07:48 - Subjective Subjective: Surgery Progress note. Dr. Joyce Pt seen and examined at bedside this morning. Isael removed yesterday. On-Q caths removed this morning. Patient reports passing flatus last night. Denies any N/V. Abd pain well tolerated. No new complaints. Objective - Vital Signs/Intake and Output Vital Signs (last 24 hours): Temp Pulse Resp BP Pulse Ox 98.1 F 89 20 130/89 97 07/29/18 15:50 07/29/18 15:50 07/29/18 15:50 07/29/18 15:50 07/29/18 15:50 Intake and Output: 07/30/18 07/30/18 06:59 18:59 Intake Total 60 Output Total 1000 Balance -940 - Medications Medications: Current Medications Acetaminophen (Tylenol 325mg Tab) 975 mg PO Q8H [facility] Last Admin: 07/30/18 00:00 Dose: Not Given Amlodipine Besylate (Norvasc) 5 mg PO DAILY [facility] Last Admin: 07/29/18 09:34 Dose: 5 mg Aspirin (Ecotrin) 81 mg PO DAILY [facility] Last Admin: 07/29/18 10:21 Dose: Not Given Dextrose (Dextrose 50% Inj) 0 ml IV STAT PRN; Protocol PRN Reason: Hypoglycemia Protocol Docusate Sodium (Colace) 100 mg PO BID [facility] Last Admin: 07/29/18 17:13 Dose: 100 mg Enoxaparin Sodium (Lovenox) 40 mg SC DAILY [facility]; Protocol Last Admin: 07/29/18 10:20 Dose: Not Given Famotidine (Pepcid) 20 mg IVP DAILY [facility] Last Admin: 07/29/18 09:34 Dose: 20 mg Hydralazine HCl (Apresoline) 5 mg IVP Q6 PRN PRN Reason: Systolic Blood Pressure Hydrochlorothiazide (Microzide) 12.5 mg PO DAILY [facility] Last Admin: 07/29/18 10:20 Dose: Not Given Dextrose (Dextrose 5% In Water 1000 Ml) 1,000 mls @ 0 mls/hr IV .Q0M PRN; Protocol PRN Reason: Hypoglycemia Protocol Potassium Chloride 20 meq/ (Dextrose/Sodium Chloride) 1,010 mls @ 60 mls/hr IV .[id number] [facility] Last Admin: 07/29/18 17:14 Dose: 60 mls/hr Ibuprofen (Motrin Tab) 600 mg PO Q6H PRN PRN Reason: Pain, moderate (4-7) Last Admin: 07/30/18 05:10 Dose: 600 mg Insulin Human Lispro (Humalog Low) 0 units SC ACHS [facility]; Protocol Last Admin: 07/29/18 21:59 Dose: Not Given Lidocaine (Lidoderm) 1 ea TD DAILY [facility] Last Admin: 07/29/18 09:32 Dose: 1 ea Ondansetron HCl (Zofran Inj) 4 mg IVP Q6 PRN PRN Reason: Nausea/Vomiting Last Admin: 07/27/18 22:48 Dose: 4 mg Petrolatum (Desitin Maximum Strength Topical 40% Oint) 0 gm TOP Q4H PRN PRN Reason: Rash Potassium Phos/Sodium Phos (Neutra-Phos) 1 pkt PO TID [facility] Stop: 07/30/18 12:00 Last Admin: 07/29/18 17:14 Dose: 1 pkt Simethicone (Mylicon Chew Tab) 80 mg PO HS PRN PRN Reason: GI distress Last Admin: 07/30/18 04:01 Dose: 80 mg Tramadol HCl (Ultram) 50 mg PO TID PRN PRN Reason: Pain, severe (8-10) Last Admin: 07/27/18 18:02 Dose: 50 mg - Labs Labs: 07/29/18 06:00 07/29/18 06:00 PT 12.4 SECONDS (9.4-12.5) 07/24/18 13:20 INR 1.10 07/24/18 13:20 APTT 31.8 Seconds (26.9-38.3) 07/24/18 13:20 - Constitutional Appears: Well, Non-toxic, No Acute Distress - Head Exam Head Exam: ATRAUMATIC, NORMAL INSPECTION, NORMOCEPHALIC - Eye Exam Eye Exam: EOMI, Normal appearance. absent: Scleral icterus - ENT Exam ENT Exam: Mucous Membranes Moist - Respiratory Exam Respiratory Exam: NORMAL BREATHING PATTERN. absent: Accessory Muscle Use, Res piratory Distress - Cardiovascular Exam Cardiovascular Exam: RRR - GI/Abdominal Exam GI & Abdominal Exam: Soft. absent: Distended, Firm, Guarding, Tenderness, Rebound Additional comments: Left colostomy site skin open minimal iodoform packing replaced. - Neurological Exam Neurological Exam: Alert, Awake, Oriented x3 - Psychiatric Exam Psychiatric exam: Normal Affect, Normal Mood - Skin Skin Exam: Dry, Intact, Normal Color, Warm Assessment and Plan - Assessment and Plan (Free Text) Assessment: 58yo F with PMHx of HTN, DM and diverticulitis s/p Leary's procedure on 04/2018 s/p colostomy reversal POD 5 Plan: - Diet advanced to soft - Monitor for bowel function. Reports flatus last night - Continue daily prior colostomy site packing changes. - Pain management Further recs as per Dr. Isiah Pruett PGY2 surgery
--- NOTE | 2018-07-30 07:52 | CP.PCM.PN ---
<Nato Stone - Last Filed: 07/30/18 16:22> Subjective - Date & Time of Evaluation Date of Evaluation: 07/30/18 Time of Evaluation: 07:51 - Subjective Subjective: Nato Stone DO, PGY-1 Hospitalist Progress Note for Dr. Villarreal Patient was seen and examined at bedside this AM. She reports she is passing gas but has still did not have a solid BM. She passed only a small amount of liquid stool. Patient was seen again this afternoon and states she has still not had a BM but is tolerating diet well without nausea/vomiting. Objective - Vital Signs/Intake and Output Vital Signs (last 24 hours): Temp Pulse Resp BP Pulse Ox 98.1 F 89 20 130/89 97 07/29/18 15:50 07/29/18 15:50 07/29/18 15:50 07/29/18 15:50 07/29/18 15:50 Intake and Output: 07/30/18 07/30/18 06:59 18:59 Intake Total 60 Output Total 1000 Balance -940 - Medications Medications: Current Medications Acetaminophen (Tylenol 325mg Tab) 975 mg PO Q8H [facility] Last Admin: 07/30/18 00:00 Dose: Not Given Amlodipine Besylate (Norvasc) 5 mg PO DAILY [facility] Last Admin: 07/29/18 09:34 Dose: 5 mg Aspirin (Ecotrin) 81 mg PO DAILY [facility] Last Admin: 07/29/18 10:21 Dose: Not Given Dextrose (Dextrose 50% Inj) 0 ml IV STAT PRN; Protocol PRN Reason: Hypoglycemia Protocol Docusate Sodium (Colace) 100 mg PO BID [facility] Last Admin: 07/29/18 17:13 Dose: 100 mg Enoxaparin Sodium (Lovenox) 40 mg SC DAILY [facility]; Protocol Last Admin: 07/29/18 10:20 Dose: Not Given Famotidine (Pepcid) 20 mg IVP DAILY [facility] Last Admin: 07/29/18 09:34 Dose: 20 mg Hydralazine HCl (Apresoline) 5 mg IVP Q6 PRN PRN Reason: Systolic Blood Pressure Hydrochlorothiazide (Microzide) 12.5 mg PO DAILY [facility] Last Admin: 07/29/18 10:20 Dose: Not Given Dextrose (Dextrose 5% In Water 1000 Ml) 1,000 mls @ 0 mls/hr IV .Q0M PRN; Protocol PRN Reason: Hypoglycemia Protocol Potassium Chloride 20 meq/ (Dextrose/Sodium Chloride) 1,010 mls @ 60 mls/hr IV .[id number] [facility] Last Admin: 07/29/18 17:14 Dose: 60 mls/hr Ibuprofen (Motrin Tab) 600 mg PO Q6H PRN PRN Reason: Pain, moderate (4-7) Last Admin: 07/30/18 05:10 Dose: 600 mg Insulin Human Lispro (Humalog Low) 0 units SC ACHS [facility]; Protocol Last Admin: 07/29/18 21:59 Dose: Not Given Lidocaine (Lidoderm) 1 ea TD DAILY [facility] Last Admin: 07/29/18 09:32 Dose: 1 ea Ondansetron HCl (Zofran Inj) 4 mg IVP Q6 PRN PRN Reason: Nausea/Vomiting Last Admin: 07/27/18 22:48 Dose: 4 mg Petrolatum (Desitin Maximum Strength Topical 40% Oint) 0 gm TOP Q4H PRN PRN Reason: Rash Potassium Phos/Sodium Phos (Neutra-Phos) 1 pkt PO TID [facility] Stop: 07/30/18 12:00 Last Admin: 07/29/18 17:14 Dose: 1 pkt Simethicone (Mylicon Chew Tab) 80 mg PO PCHS PRN PRN Reason: GI distress Last Admin: 07/30/18 04:01 Dose: 80 mg Tramadol HCl (Ultram) 50 mg PO TID PRN PRN Reason: Pain, severe (8-10) Last Admin: 07/27/18 18:02 Dose: 50 mg - Labs Labs: 07/29/18 06:00 07/29/18 06:00 PT 12.4 SECONDS (9.4-12.5) 07/24/18 13:20 INR 1.10 07/24/18 13:20 APTT 31.8 Seconds (26.9-38.3) 07/24/18 13:20 - Constitutional Appears: Non-toxic, No Acute Distress - Head Exam Head Exam: ATRAUMATIC, NORMOCEPHALIC - Eye Exam Eye Exam: EOMI, Normal appearance, PERRL - ENT Exam ENT Exam: Mucous Membranes Moist - Neck Exam Neck Exam: Full ROM, Normal Inspection - Respiratory Exam Respiratory Exam: Clear to Ausculation Bilateral, NORMAL BREATHING PATTERN. absent: Rales, Rhonchi, Wheezes - Cardiovascular Exam Cardiovascular Exam: REGULAR RHYTHM, RRR, +S1, +S2. absent: Gallop, Rubs, Murmur - GI/Abdominal Exam GI & Abdominal Exam: Soft, Normal Bowel Sounds. absent: Tenderness - Extremities Exam Extremities Exam: Normal Inspection. absent: Pedal Edema - Back Exam Back Exam: NORMAL INSPECTION - Neurological Exam Neurological Exam: Alert, Awake, Oriented x3 - Psychiatric Exam Psychiatric exam: Normal Affect, Normal Mood - Skin Skin Exam: Dry, Intact, Warm Assessment and Plan - Assessment and Plan (Free Text) Assessment: 58 yo F with PMH of HTN, DM2, and diverticulitis (s/p Amaury procedure 04/2018) presented for persistent pain and discomfort at colostomy site. She is now s/p colostomy reversal with lysis of adhesions and open appendectomy POD 4. RN reports patient had BM yesterday, however, patient reports she is still not passing gas. Plan: Post-op Ileus Abdominal xray confirmed suspicion of post-op ileus Patient admits to flatus but only had one small liquid BM Bowel regimen thus far has included colace, milk of magnesia Consider enema or adding other bowel regimen in AM Per surgery, need to wait until patient has well formed BM before safe to discharge S/p colostomy reversal with lysis of adhesions and open appendectomy POD 5 Patient states her pain has been controlled with ibuprofen alone Consider toradol if needed for severe pain F/u additional surgery recs Microcytic anemia Likely 2/2 iron deficiency anemia with perioperative losses vs dilutional effect Has remained stable this AM at 8.8/28.5, continue to monitor Will hold iron supplementation for now as patient is post-op Will recommend iron supplementation on discharge Hypomagnesemia Resolved Hx HTN PRN IV hydralazine Improved since yesterday Restart home HCTZ and amlodipine Hx DM2 Continue ISS DVT/GI PPX: SCDs and lovenox/pepcid Full Code Continue consistent CHO diet Monitor on med/surg Patient seen, examined, and plan discussed with my attending Dr. Phil Stone, D.O. IM Resident PGY-1 Pager: [phone] <Rae Villarreal - Last Filed: 07/30/18 16:55> Objective - Vital Signs/Intake and Output Vital Signs (last 24 hours): Temp Pulse Resp BP Pulse Ox 98.5 F 87 20 133/91 H 96 07/30/18 06:00 07/30/18 06:00 07/30/18 06:00 07/30/18 06:00 07/30/18 06:00 Intake and Output: 07/30/18 07/30/18 06:59 18:59 Intake Total 60 Output Total 1000 Balance -940 - Medications Medications: Current Medications Acetaminophen (Tylenol 325mg Tab) 975 mg PO Q8H [facility] Last Admin: 07/30/18 00:00 Dose: Not Given Amlodipine Besylate (Norvasc) 5 mg PO DAILY [facility] Last Admin: 07/29/18 09:34 Dose: 5 mg Aspirin (Ecotrin) 81 mg PO DAILY [facility] Last Admin: 07/30/18 09:19 Dose: 81 mg Dextrose (Dextrose 50% Inj) 0 ml IV STAT PRN; Protocol PRN Reason: Hypoglycemia Protocol Docusate Sodium (Colace) 100 mg PO BID [facility] Last Admin: 07/30/18 09:19 Dose: 100 mg Enoxaparin Sodium (Lovenox) 40 mg SC DAILY [facility]; Protocol Last Admin: 07/30/18 09:19 Dose: 40 mg Famotidine (Pepcid) 20 mg IVP DAILY [facility] Last Admin: 07/30/18 09:18 Dose: 20 mg Hydralazine HCl (Apresoline) 5 mg IVP Q6 PRN PRN Reason: Systolic Blood Pressure Hydrochlorothiazide (Microzide) 12.5 mg PO DAILY [facility] Last Admin: 07/30/18 09:19 Dose: 12.5 mg Dextrose (Dextrose 5% In Water 1000 Ml) 1,000 mls @ 0 mls/hr IV .Q0M PRN; Protocol PRN Reason: Hypoglycemia Protocol Ibuprofen (Motrin Tab) 600 mg PO Q6H PRN PRN Reason: Pain, moderate (4-7) Last Admin: 07/30/18 05:10 Dose: 600 mg Insulin Human Lispro (Humalog Low) 0 units SC ACHS [facility]; Protocol Last Admin: 07/30/18 13:02 Dose: 3 unit Lidocaine (Lidoderm) 1 ea TD DAILY [facility] Last Admin: 07/30/18 09:19 Dose: 1 ea Ondansetron HCl (Zofran Inj) 4 mg IVP Q6 PRN PRN Reason: Nausea/Vomiting Last Admin: 07/27/18 22:48 Dose: 4 mg Petrolatum (Desitin Maximum Strength Topical 40% Oint) 0 gm TOP Q4H PRN PRN Reason: Rash Simethicone (Mylicon Chew Tab) 80 mg PO PCHS PRN PRN Reason: GI distress Last Admin: 07/30/18 04:01 Dose: 80 mg Tramadol HCl (Ultram) 50 mg PO TID PRN PRN Reason: Pain, severe (8-10) Last Admin: 07/27/18 18:02 Dose: 50 mg - Labs Labs: 07/29/18 06:00 07/29/18 06:00 PT 12.4 SECONDS (9.4-12.5) 07/24/18 13:20 INR 1.10 07/24/18 13:20 APTT 31.8 Seconds (26.9-38.3) 07/24/18 13:20 Attending/Attestation - Attestation I have personally seen and examined this patient.: Yes I have fully participated in the care of the patient.: Yes I have reviewed all pertinent clinical information, including history, physical exam and plan: Yes Notes (Text): 07/30/18 16:53 58 year old female with past medical history of hypertension, diabetes, and recurrent diverticulitis s/p Amaury's procedure (05/15) who presented with complaint of persistent pain and discomfort at colostomy site. She was seen by surgery and is s/p colostomy reversal and lysis of adhesions POD #5. She reports she is passing flatus but still no BM. Abdominal xray yesterday showed ileus. Narcotics and norvasc are on hold. Surgery is following and advanced diet today. She was noted to have postoperative anemia which is stable; will continue to monitor for now. Encouraged out of bed to chair and incentive spirometer. PT follow up was appreciated who recommended SAR. Rae Villarreal MD Hospitalist.
[2018-07-30] MEDS: Insulin Lispro (humaLOG) LOW Coverage SC SCH ×3 (09:18→22:07)
[2018-07-30] MEDS: Lidocaine 5% Patch TD SCH (09:19)
[2018-07-30] MEDS: Enoxaparin 40 mg Syringe SC SCH (09:19)
[2018-07-30] MEDS: Potassium & Sodium Phosphate PO SCH (09:19)
[2018-07-31] MEDS: Insulin Lispro (humaLOG) LOW Coverage SC SCH ×4 (08:08→21:33)
[2018-07-31] MEDS: 0.125% Bupivacaine in 0.9% NS 750mL On Q Dual pump IJ SCH (10:33)
[2018-07-31] MEDS: Enoxaparin 40 mg Syringe SC SCH (10:33)
[2018-07-31] MEDS: Lidocaine 5% Patch TD SCH (10:34)
--- NOTE | 2018-07-31 13:49 | CP.PCM.PN ---
Subjective - Date & Time of Evaluation Date of Evaluation: 07/31/18 Time of Evaluation: 13:46 - Subjective Subjective: General Surgery Progress Note for Dr. Joyce This 58F was seen and examined this Am at bedside. She reports emesis overnight as well as cramping abdominal pain. She reports flatus and loose stool this AM. She is ambulating. She denies any chest pain or SOB. Packing changed this AM during rounds. Objective - Vital Signs/Intake and Output Vital Signs (last 24 hours): Temp Pulse Resp BP Pulse Ox 98.0 F 97 H 18 127/90 96 07/31/18 06:00 07/31/18 06:00 07/31/18 06:00 07/31/18 06:00 07/31/18 06:00 Intake and Output: 07/31/18 07/31/18 06:59 18:59 Intake Total 1620 Output Total 2009 Balance -390 - Medications Medications: Current Medications Acetaminophen (Tylenol 325mg Tab) 975 mg PO Q8H [facility] Last Admin: 07/31/18 10:35 Dose: Not Given Amlodipine Besylate (Norvasc) 5 mg PO DAILY [facility] Last Admin: 07/29/18 09:34 Dose: 5 mg Aspirin (Ecotrin) 81 mg PO DAILY [facility] Last Admin: 07/31/18 10:33 Dose: Not Given Dextrose (Dextrose 50% Inj) 0 ml IV STAT PRN; Protocol PRN Reason: Hypoglycemia Protocol Docusate Sodium (Colace) 100 mg PO BID [facility] Last Admin: 07/31/18 10:33 Dose: Not Given Enoxaparin Sodium (Lovenox) 40 mg SC DAILY [facility]; Protocol Last Admin: 07/31/18 10:33 Dose: 40 mg Famotidine (Pepcid) 20 mg IVP DAILY [facility] Last Admin: 07/31/18 10:33 Dose: 20 mg Hydralazine HCl (Apresoline) 5 mg IVP Q6 PRN PRN Reason: Systolic Blood Pressure Hydrochlorothiazide (Microzide) 12.5 mg PO DAILY [facility] Last Admin: 07/31/18 10:33 Dose: Not Given Dextrose (Dextrose 5% In Water 1000 Ml) 1,000 mls @ 0 mls/hr IV .Q0M PRN; Protocol PRN Reason: Hypoglycemia Protocol Ibuprofen (Motrin Tab) 600 mg PO Q6H PRN PRN Reason: Pain, moderate (4-7) Last Admin: 07/30/18 23:40 Dose: 600 mg Insulin Human Lispro (Humalog Low) 0 units SC ACHS [facility]; Protocol Last Admin: 07/31/18 12:28 Dose: Not Given Lidocaine (Lidoderm) 1 ea TD DAILY [facility] Last Admin: 07/31/18 10:34 Dose: 1 ea Ondansetron HCl (Zofran Inj) 4 mg IVP Q6 PRN PRN Reason: Nausea/Vomiting Last Admin: 07/31/18 08:08 Dose: 4 mg Petrolatum (Desitin Maximum Strength Topical 40% Oint) 0 gm TOP Q4H PRN PRN Reason: Rash Simethicone (Mylicon Chew Tab) 80 mg PO PCHS PRN PRN Reason: GI distress Last Admin: 07/30/18 22:07 Dose: 80 mg Tramadol HCl (Ultram) 50 mg PO TID PRN PRN Reason: Pain, severe (8-10) Last Admin: 07/31/18 04:29 Dose: 50 mg - Labs Labs: 07/29/18 06:00 07/29/18 06:00 PT 12.4 SECONDS (9.4-12.5) 07/24/18 13:20 INR 1.10 07/24/18 13:20 APTT 31.8 Seconds (26.9-38.3) 07/24/18 13:20 - Constitutional Appears: Well, Non-toxic, No Acute Distress - Head Exam Head Exam: ATRAUMATIC, NORMAL INSPECTION, NORMOCEPHALIC - Eye Exam Eye Exam: EOMI, Normal appearance. absent: Scleral icterus - ENT Exam ENT Exam: Mucous Membranes Moist - Respiratory Exam Respiratory Exam: NORMAL BREATHING PATTERN. absent: Accessory Muscle Use, Respiratory Distress - Cardiovascular Exam Cardiovascular Exam: RRR - GI/Abdominal Exam GI & Abdominal Exam: Soft. absent: Distended, Firm, Guarding, Tenderness, Rebound Additional comments: Left colostomy site skin open minimal iodoform packing replaced. - Neurological Exam Neurological Exam: Alert, Awake, Oriented x3 - Psychiatric Exam Psychiatric exam: Normal Affect, Normal Mood - Skin Skin Exam: Dry, Intact, Normal Color, Warm Assessment and Plan - Assessment and Plan (Free Text) Assessment: 58yo F with PMHx of HTN, DM and diverticulitis s/p Leary's procedure on 04/2018 s/p colostomy reversal POD 6 Plan: - Liquid diet - Continue to monitor bowel function - Continue daily prior colostomy site packing changes. - Pain management Further recs as per Dr. Isiah Burgess PGY3
--- NOTE | 2018-07-31 16:15 | CP.PCM.PN ---
<Nato Stone - Last Filed: 07/31/18 16:41> Subjective - Date & Time of Evaluation Date of Evaluation: 07/31/18 Time of Evaluation: 08:40 - Subjective Subjective: Nato Stone DO, PGY-1 Hospitalist Progress Note for Dr. Villarreal Patient was seen and examined at bedside this AM. She felt nauseated this AM and vomited twice. She reports she has still not had a well-formed BM but is passing flatus. She reports initial dose of zofran didn't help nausea but it has improved with reglan. She otherwise does not complain of fever/chills, CP, SOB, worsening abdominal pain, or urinary changes. Objective - Vital Signs/Intake and Output Vital Signs (last 24 hours): Temp Pulse Resp BP Pulse Ox 98.0 F 97 H 18 127/90 96 07/31/18 06:00 07/31/18 06:00 07/31/18 06:00 07/31/18 06:00 07/31/18 06:00 Intake and Output: 07/31/18 07/31/18 06:59 18:59 Intake Total 1620 Output Total 2009 Balance -390 - Medications Medications: Current Medications Acetaminophen (Tylenol 325mg Tab) 975 mg PO Q8H [facility] Last Admin: 07/31/18 10:35 Dose: Not Given Amlodipine Besylate (Norvasc) 5 mg PO DAILY [facility] Last Admin: 07/29/18 09:34 Dose: 5 mg Aspirin (Ecotrin) 81 mg PO DAILY [facility] Last Admin: 07/31/18 10:33 Dose: Not Given Dextrose (Dextrose 50% Inj) 0 ml IV STAT PRN; Protocol PRN Reason: Hypoglycemia Protocol Docusate Sodium (Colace) 100 mg PO BID [facility] Last Admin: 07/31/18 10:33 Dose: Not Given Enoxaparin Sodium (Lovenox) 40 mg SC DAILY [facility]; Protocol Last Admin: 07/31/18 10:33 Dose: 40 mg Famotidine (Pepcid) 20 mg IVP DAILY [facility] Last Admin: 07/31/18 10:33 Dose: 20 mg Hydralazine HCl (Apresoline) 5 mg IVP Q6 PRN PRN Reason: Systolic Blood Pressure Hydrochlorothiazide (Microzide) 12.5 mg PO DAILY [facility] Last Admin: 07/31/18 10:33 Dose: Not Given Dextrose (Dextrose 5% In Water 1000 Ml) 1,000 mls @ 0 mls/hr IV .Q0M PRN; Protocol PRN Reason: Hypoglycemia Protocol Ibuprofen (Motrin Tab) 600 mg PO Q6H PRN PRN Reason: Pain, moderate (4-7) Last Admin: 07/30/18 23:40 Dose: 600 mg Insulin Human Lispro (Humalog Low) 0 units SC ACHS [facility]; Protocol Last Admin: 07/31/18 12:28 Dose: Not Given Lidocaine (Lidoderm) 1 ea TD DAILY [facility] Last Admin: 07/31/18 10:34 Dose: 1 ea Ondansetron HCl (Zofran Inj) 4 mg IVP Q6 PRN PRN Reason: Nausea/Vomiting Last Admin: 07/31/18 08:08 Dose: 4 mg Petrolatum (Desitin Maximum Strength Topical 40% Oint) 0 gm TOP Q4H PRN PRN Reason: Rash Simethicone (Mylicon Chew Tab) 80 mg PO PCHS PRN PRN Reason: GI distress Last Admin: 07/30/18 22:07 Dose: 80 mg Tramadol HCl (Ultram) 50 mg PO TID PRN PRN Reason: Pain, severe (8-10) Last Admin: 07/31/18 04:29 Dose: 50 mg - Labs Labs: 07/29/18 06:00 07/29/18 06:00 PT 12.4 SECONDS (9.4-12.5) 07/24/18 13:20 INR 1.10 07/24/18 13:20 APTT 31.8 Seconds (26.9-38.3) 07/24/18 13:20 - Constitutional Appears: Non-toxic, No Acute Distress, Other (uncomfortable, nauseated) - Head Exam Head Exam: ATRAUMATIC, NORMOCEPHALIC - Eye Exam Eye Exam: EOMI, Normal appearance, PERRL - ENT Exam ENT Exam: Mucous Membranes Moist - Neck Exam Neck Exam: Full ROM, Normal Inspection - Respiratory Exam Respiratory Exam: Clear to Ausculation Bilateral, NORMAL BREATHING PATTERN. absent: Rales, Rhonchi, Wheezes - Cardiovascular Exam Cardiovascular Exam: REGULAR RHYTHM, RRR, +S1, +S2. absent: Gallop, Rubs, Murmur - GI/Abdominal Exam GI & Abdominal Exam: Soft, Tenderness (moderate tenderness to palpation epi gastric and RLQ regions), Hypoactive Bowel Sounds Additional comments: Surgical wound open with krystina, clean, dry, intact - Extremities Exam Extremities Exam: Normal Inspection. absent: Pedal Edema - Back Exam Back Exam: NORMAL INSPECTION - Neurological Exam Neurological Exam: Alert, Awake, Oriented x3 - Psychiatric Exam Psychiatric exam: Normal Affect, Normal Mood - Skin Skin Exam: Dry, Intact, Warm Assessment and Plan - Assessment and Plan (Free Text) Assessment: 58 yo F with PMH of HTN, DM2, and diverticulitis (s/p Amaury procedure 04/2018) presented for persistent pain and discomfort at colostomy site. She is now s/p colostomy reversal with lysis of adhesions and open appendectomy POD 4. RN reports patient had BM yesterday, however, patient reports she is still not passing gas. Plan: S/p colostomy reversal with lysis of adhesions and open appendectomy POD 6 Patient has had nausea/vomiting since this AM Initial dose of zofran did not alleviate, but improved with reglan Continue reglan and/or zofran PRN Change back to liquid diet Patient states pain is controlled with ibuprofen Consider toradol as needed for severe pain Avoid opiates as patient became drowsy with IV morphine and required narcan F/u additional surgery recs Post-op Ileus Abdominal xray confirmed suspicion of post-op ileus Has only had two small liquid BM's Will discuss needed bowel regimen with surgery team Per surgery, need to wait until patient has well formed BM before safe to discharge Microcytic anemia Likely 2/2 iron deficiency anemia with perioperative losses vs dilutional effect Will hold iron supplementation for now 2/2 post-op ileus Continue to monitor Will recommend iron supplementation on discharge Hypomagnesemia Resolved Hx HTN PRN IV hydralazine Improved since yesterday Restart home HCTZ and amlodipine Hx DM2 Continue ISS DVT/GI PPX: SCDs and lovenox/pepcid Full Code Clear liquid diet Monitor on med/surg Patient seen, examined, and plan discussed with my attending Dr. Phil Stone, D.O. IM Resident PGY-1 Pager: [phone] <Rae Villarreal - Last Filed: 07/31/18 17:49> Objective - Vital Signs/Intake and Output Vital Signs (last 24 hours): Temp Pulse Resp BP Pulse Ox 98.0 F 97 H 18 127/90 96 07/31/18 06:00 07/31/18 06:00 07/31/18 06:00 07/31/18 06:00 07/31/18 06:00 Intake and Output: 07/31/18 07/31/18 06:59 18:59 Intake Total 1620 Output Total 2009 Balance -390 - Medications Medications: Current Medications Acetaminophen (Tylenol 325mg Tab) 975 mg PO Q8H [facility] Last Admin: 07/31/18 10:35 Dose: Not Given Amlodipine Besylate (Norvasc) 5 mg PO DAILY [facility] Last Admin: 07/29/18 09:34 Dose: 5 mg Aspirin (Ecotrin) 81 mg PO DAILY [facility] Last Admin: 07/31/18 10:33 Dose: Not Given Dextrose (Dextrose 50% Inj) 0 ml IV STAT PRN; Protocol PRN Reason: Hypoglycemia Protocol Docusate Sodium (Colace) 100 mg PO BID [facility] Last Admin: 07/31/18 17:35 Dose: Not Given Enoxaparin Sodium (Lovenox) 40 mg SC DAILY [facility]; Protocol Last Admin: 07/31/18 10:33 Dose: 40 mg Famotidine (Pepcid) 20 mg IVP DAILY [facility] Last Admin: 07/31/18 10:33 Dose: 20 mg Hydralazine HCl (Apresoline) 5 mg IVP Q6 PRN PRN Reason: Systolic Blood Pressure Hydrochlorothiazide (Microzide) 12.5 mg PO DAILY [facility] Last Admin: 07/31/18 10:33 Dose: Not Given Dextrose (Dextrose 5% In Water 1000 Ml) 1,000 mls @ 0 mls/hr IV .Q0M PRN; Protocol PRN Reason: Hypoglycemia Protocol Ibuprofen (Motrin Tab) 600 mg PO Q6H PRN PRN Reason: Pain, moderate (4-7) Last Admin: 07/30/18 23:40 Dose: 600 mg Insulin Human Lispro (Humalog Low) 0 units SC [facility]; Protocol Last Admin: 07/31/18 17:32 Dose: 1 unit Lidocaine (Lidoderm) 1 ea TD DAILY [facility] Last Admin: 07/31/18 10:34 Dose: 1 ea Ondansetron HCl (Zofran Inj) 4 mg IVP Q6 PRN PRN Reason: Nausea/Vomiting Last Admin: 07/31/18 08:08 Dose: 4 mg Petrolatum (Desitin Maximum Strength Topical 40% Oint) 0 gm TOP Q4H PRN PRN Reason: Rash Simethicone (Mylicon Chew Tab) 80 mg PO PCHS PRN PRN Reason: GI distress Last Admin: 07/30/18 22:07 Dose: 80 mg Tramadol HCl (Ultram) 50 mg PO TID PRN PRN Reason: Pain, severe (8-10) Last Admin: 07/31/18 04:29 Dose: 50 mg - Labs Labs: 07/29/18 06:00 07/29/18 06:00 PT 12.4 SECONDS (9.4-12.5) 07/24/18 13:20 INR 1.10 07/24/18 13:20 APTT 31.8 Seconds (26.9-38.3) 07/24/18 13:20 Attending/Attestation - Attestation I have personally seen and examined this patient.: Yes I have fully participated in the care of the patient.: Yes I have reviewed all pertinent clinical information, including history, physical exam and plan: Yes Notes (Text): 07/31/18 17:48 58 year old female with past medical history of hypertension, diabetes, and recurrent diverticulitis s/p Amaury's procedure (05/15) who presented with complaint of persistent pain and discomfort at colostomy site. She was seen by surgery and is s/p colostomy reversal and lysis of adhesions POD #6. She reports she is passing flatus but very little BM. Abdominal xray few days prior showed ileus. Narcotics and norvasc are on hold. Patient has episode of vomiting this morning. Diet is scaled back to liquids for now. Repeat abdominal xray is ordered. Surgery is following. She was noted to have postoperative anemia which is stable; will continue to monitor for now. Encouraged out of bed to chair and incentive spirometer. PT follow up was appreciated who recommended SAR. Rae Villarreal MD Hospitalist.
--- NOTE | 2018-07-31 17:47 | RAD ---
Date of service: 07/31/2018 HISTORY: VOMITING MULTIPLE TIMES POST OP COMPARISON: Comparison made with prior radiographs of the abdomen 07/29/2018 FINDINGS: BOWEL: No evidence of acute mechanical bowel obstruction. There appears to be air throughout most of the colon. Metallic surgical clips again noted within the mid to lower abdomen and pelvis BONES: Normal. OTHER FINDINGS: None. IMPRESSION: No evidence of acute mechanical bowel obstruction.
[2018-08-01 07:12] LABS: BASO # 0.01 K/mm3 (0.0-2.0); BASO % 0.1 % (0.0-3.0); EOS # 0.1 (0.0-0.7); EOS % 0.7 % (1.5-5.0); HEMOGLOBIN 10.2 g/dL (12.0-16.0); LYMPH # 1.8 (1.2-3.4); LYMPH % 18.9 % (22.0-35.0); MEAN CELL VOLUME 78.7 fl (80.0-105.0); MEAN CORPUSCULAR HEMOGLOBIN 24.4 pg (25.0-35.0); MEAN PLATELET VOLUME 9.1 fl (7.0-11.0); MONO # 0.6 (0.1-0.6); MONO % 6.2 % (1.0-6.0); RBC 4.18 10^6/uL (3.5-6.1); RED CELL DISTRIBUTION WIDTH 15.6 % (11.5-14.5); WHITE BLOOD COUNT 9.4 10^3/uL (4.5-11.0)
[2018-08-01 07:19] LABS: ALT/SGPT 12 U/L (7-56); AST/SGOT 27 U/L (14-36); BLOOD UREA NITROGEN 12 mg/dL (7-21); CALCIUM 9.5 mg/dL (8.4-10.5); GFR NON-AFRICAN AMERICAN > 60
--- NOTE | 2018-08-01 07:26 | CP.PCM.PN ---
<Nato Stone - Last Filed: 08/01/18 17:02> Subjective - Date & Time of Evaluation Date of Evaluation: 08/01/18 Time of Evaluation: 07:26 - Subjective Subjective: Nato Stone DO, PGY-1 Hospitalist Progress Note for Dr. Fox Patient was seen and examined at bedside this AM. She states she feels less nauseous this morning. She tolerated a piece of toast and ginerale without nausea/vomiting this AM. Patient states she still has difficulty getting to the bathroom. She worked with PT the other day and they recommended NATE. However, patient will have difficulty because she has [facility]. Objective - Vital Signs/Intake and Output Vital Signs (last 24 hours): Temp Pulse Resp BP Pulse Ox 98.0 F 97 H 18 127/90 96 07/31/18 06:00 07/31/18 06:00 07/31/18 06:00 07/31/18 06:00 07/31/18 06:00 Intake and Output: 08/01/18 08/01/18 06:59 18:59 Intake Total 240 Output Total 400 Balance -160 - Medications Medications: Current Medications Acetaminophen (Tylenol 325mg Tab) 975 mg PO Q8H [facility] Last Admin: 08/01/18 00:30 Dose: Not Given Amlodipine Besylate (Norvasc) 5 mg PO DAILY [facility] Last Admin: 07/29/18 09:34 Dose: 5 mg Aspirin (Ecotrin) 81 mg PO DAILY [facility] Last Admin: 07/31/18 10:33 Dose: Not Given Dextrose (Dextrose 50% Inj) 0 ml IV STAT PRN; Protocol PRN Reason: Hypoglycemia Protocol Docusate Sodium (Colace) 100 mg PO BID [facility] Last Admin: 07/31/18 17:35 Dose: Not Given Enoxaparin Sodium (Lovenox) 40 mg SC DAILY [facility]; Protocol Last Admin: 07/31/18 10:33 Dose: 40 mg Famotidine (Pepcid) 20 mg IVP DAILY [facility] Last Admin: 07/31/18 10:33 Dose: 20 mg Hydralazine HCl (Apresoline) 5 mg IVP Q6 PRN PRN Reason: Systolic Blood Pressure Hydrochlorothiazide (Microzide) 12.5 mg PO DAILY [facility] Last Admin: 07/31/18 10:33 Dose: Not Given Dextrose (Dextrose 5% In Water 1000 Ml) 1,000 mls @ 0 mls/hr IV .Q0M PRN; Prot ocol PRN Reason: Hypoglycemia Protocol Ibuprofen (Motrin Tab) 600 mg PO Q6H PRN PRN Reason: Pain, moderate (4-7) Last Admin: 07/30/18 23:40 Dose: 600 mg Insulin Human Lispro (Humalog Low) 0 units SC ACHS [facility]; Protocol Last Admin: 07/31/18 21:33 Dose: Not Given Lidocaine (Lidoderm) 1 ea TD DAILY [facility] Last Admin: 07/31/18 10:34 Dose: 1 ea Ondansetron HCl (Zofran Inj) 4 mg IVP Q6 PRN PRN Reason: Nausea/Vomiting Last Admin: 07/31/18 21:48 Dose: 4 mg Petrolatum (Desitin Maximum Strength Topical 40% Oint) 0 gm TOP Q4H PRN PRN Reason: Rash Simethicone (Mylicon Chew Tab) 80 mg PO PCHS PRN PRN Reason: GI distress Last Admin: 07/30/18 22:07 Dose: 80 mg Tramadol HCl (Ultram) 50 mg PO TID PRN PRN Reason: Pain, severe (8-10) Last Admin: 07/31/18 04:29 Dose: 50 mg - Labs Labs: 07/29/18 06:00 08/01/18 06:40 PT 12.4 SECONDS (9.4-12.5) 07/24/18 13:20 INR 1.10 07/24/18 13:20 APTT 31.8 Seconds (26.9-38.3) 07/24/18 13:20 - Constitutional Appears: Non-toxic, No Acute Distress - Head Exam Head Exam: ATRAUMATIC, NORMOCEPHALIC - Eye Exam Eye Exam: EOMI, Normal appearance, PERRL - ENT Exam ENT Exam: Mucous Membranes Moist - Neck Exam Neck Exam: Full ROM, Normal Inspection - Respiratory Exam Respiratory Exam: Clear to Ausculation Bilateral, NORMAL BREATHING PATTERN. absent: Rales, Rhonchi, Wheezes - Cardiovascular Exam Cardiovascular Exam: REGULAR RHYTHM, RRR, +S1, +S2. absent: Gallop, Rubs, Murmur - GI/Abdominal Exam GI & Abdominal Exam: Soft, Tenderness (tenderness to palpation greatest RLQ), Normal Bowel Sounds Additional comments: mid-line abdominal surgical wound with krystina, wound appears clean, dry, intact - Extremities Exam Extremities Exam: Full ROM, Normal Inspection - Back Exam Back Exam: NORMAL INSPECTION - Neurological Exam Neurological Exam: Alert, Awake, Oriented x3 - Psychiatric Exam Psychiatric exam: Normal Affect, Normal Mood - Skin Skin Exam: Dry, Intact, Warm Assessment and Plan - Assessment and Plan (Free Text) Assessment: 58 yo F with PMH of HTN, DM2, and diverticulitis (s/p Amaury procedure 04/29 018) presented for persistent pain and discomfort at colostomy site. She is now s/p colostomy reversal with lysis of adhesions and open appendectomy POD 7. Plan: S/p colostomy reversal with lysis of adhesions and open appendectomy POD 7 Nausea/vomiting improved since this AM Continue reglan and/or zofran PRN Advance to soft diet Patient states pain is controlled with ibuprofen Avoid opiates as patient became drowsy with IV morphine and required narcan F/u additional surgery recs Physical Deconditioning Plan today is for PT to walk with patient as much as possible If she continues to tolerate diet and can walk to bathroom, likely discharge tomorrow Unfortunately, patient is not a candidate for [facility] as she has [facility] Post-op Ileus Improved, f/u xray shows has resolved Microcytic anemia Improved to 10.2/32.9 this AM Continue to monitor Hypomagnesemia Resolved Hx HTN Restart home norvasc May need additional BP medicine Will need outpatient f/u Hx DM2 Continue ISS DVT/GI PPX: SCDs and lovenox/pepcid Full Code HH, soft diet Monitor on med/surg Patient seen, examined, and plan discussed with my attending Dr. Phil Stone, D.O. IM Resident PGY-1 Pager: [phone] <Chrystal Fox - Last Filed: 08/01/18 18:22> Objective - Vital Signs/Intake and Output Vital Signs (last 24 hours): Temp Pulse Resp BP Pulse Ox 97.8 F 107 H 20 153/91 H 95 08/01/18 16:51 08/01/18 18:10 08/01/18 16:51 08/01/18 18:10 08/01/18 16:51 Intake and Output: 08/01/18 08/01/18 06:59 18:59 Intake Total 240 Output Total 400 Balance -160 - Medications Medications: Current Medications Acetaminophen (Tylenol 325mg Tab) 650 mg PO Q8H PRN PRN Reason: Pain, moderate (4-7) Amlodipine Besylate (Norvasc) 5 mg PO DAILY [facility] Last Admin: 07/29/18 09:34 Dose: 5 mg Aspirin (Ecotrin) 81 mg PO DAILY [facility] Last Admin: 08/01/18 10:30 Dose: 81 mg Dextrose (Dextrose 50% Inj) 0 ml IV STAT PRN; Protocol PRN Reason: Hypoglycemia Protocol Docusate Sodium (Colace) 100 mg PO BID [facility] Last Admin: 08/01/18 18:10 Dose: 100 mg Enoxaparin Sodium (Lovenox) 40 mg SC DAILY [facility]; Protocol Last Admin: 08/01/18 10:28 Dose: 40 mg Famotidine (Pepcid) 20 mg IVP DAILY [facility] Last Admin: 08/01/18 10:29 Dose: 20 mg Hydralazine HCl (Apresoline) 5 mg IVP Q6 PRN PRN Reason: Systolic Blood Pressure Hydrochlorothiazide (Microzide) 12.5 mg PO DAILY [facility] Last Admin: 08/01/18 10:30 Dose: 12.5 mg Dextrose (Dextrose 5% In Water 1000 Ml) 1,000 mls @ 0 mls/hr IV .Q0M PRN; Protocol PRN Reason: Hypoglycemia Protocol Ibuprofen (Motrin Tab) 600 mg PO Q6H PRN PRN Reason: Pain, moderate (4-7) Last Admin: 08/01/18 18:17 Dose: 600 mg Insulin Human Lispro (Humalog Low) 0 units SC [facility]; Protocol Last Admin: 08/01/18 18:09 Dose: 1 unit Lidocaine (Lidoderm) 1 ea TD DAILY [facility] Last Admin: 08/01/18 10:29 Dose: 1 ea Ondansetron HCl (Zofran Inj) 4 mg IVP Q6 PRN PRN Reason: Nausea/Vomiting Last Admin: 07/31/18 21:48 Dose: 4 mg Petrolatum (Desitin Maximum Strength Topical 40% Oint) 0 gm TOP Q4H PRN PRN Reason: Rash Simethicone (Mylicon Chew Tab) 80 mg PO HS PRN PRN Reason: GI distress Last Admin: 07/30/18 22:07 Dose: 80 mg Tramadol HCl (Ultram) 50 mg PO TID PRN PRN Reason: Pain, severe (8-10) Last Admin: 08/01/18 14:49 Dose: 50 mg - Labs Labs: 08/01/18 06:40 08/01/18 06:40 PT 12.4 SECONDS (9.4-12.5) 07/24/18 13:20 INR 1.10 07/24/18 13:20 APTT 31.8 Seconds (26.9-38.3) 07/24/18 13:20 Attending/Attestation - Attestation I have personally seen and examined this patient.: Yes I have fully participated in the care of the patient.: Yes I have reviewed all pertinent clinical information, including history, physical exam and plan: Yes Notes (Text): 08/01/18 18:20 Medical record note made by the resident after discussion with my direction and input after the patient was personally seen and examined by me. I have reviewed the chart and agree that the record accurately reflects by personal performance of the history, physical exam, data review, and medical decision-making, in the course for the patient. I have also personally directed the plan of care. 58 y/o female with PMHx of HTN, DM and diverticulitis s/p Leary's procedure on 04/2018 s/p colostomy reversal POD 7. Patient abdominal pain is better, diet is advanced today. If patient will be able to tolerate food, she will be discharged home in 24 hour. Continue Physical therapy for deconditioning. Management plan was discussed in detail with patient. Education was provided.
[2018-08-01] MEDS: Insulin Lispro (humaLOG) LOW Coverage SC SCH ×5 (07:54→22:56)
[2018-08-01] MEDS: 0.125% Bupivacaine in 0.9% NS 750mL On Q Dual pump IJ SCH (10:28)
[2018-08-01] MEDS: Enoxaparin 40 mg Syringe SC SCH (10:28)
[2018-08-01] MEDS: Lidocaine 5% Patch TD SCH (10:29)
--- NOTE | 2018-08-01 16:30 | CP.PCM.PN ---
Subjective - Date & Time of Evaluation Date of Evaluation: 08/01/18 Time of Evaluation: 07:20 - Subjective Subjective: Surgery progress note, Dr. Isiah Guthrie seen and examined at bedside. Resting comfortably in bed. Pain controlled. Tolerating her diet, no N/V. Denied BM or flatus Objective - Vital Signs/Intake and Output Vital Signs (last 24 hours): Temp Pulse Resp BP Pulse Ox 97.9 F 86 20 156/102 H 100 08/01/18 08:54 08/01/18 14:50 08/01/18 08:54 08/01/18 14:50 08/01/18 08:54 Intake and Output: 08/01/18 08/01/18 06:59 18:59 Intake Total 240 Output Total 400 Balance -160 - Medications Medications: Current Medications Acetaminophen (Tylenol 325mg Tab) 650 mg PO Q8H PRN PRN Reason: Pain, moderate (4-7) Amlodipine Besylate (Norvasc) 5 mg PO DAILY [facility] Last Admin: 07/29/18 09:34 Dose: 5 mg Aspirin (Ecotrin) 81 mg PO DAILY [facility] Last Admin: 08/01/18 10:30 Dose: 81 mg Dextrose (Dextrose 50% Inj) 0 ml IV STAT PRN; Protocol PRN Reason: Hypoglycemia Protocol Docusate Sodium (Colace) 100 mg PO BID [facility] Last Admin: 08/01/18 10:29 Dose: 100 mg Enoxaparin Sodium (Lovenox) 40 mg SC DAILY [facility]; Protocol Last Admin: 08/01/18 10:28 Dose: 40 mg Famotidine (Pepcid) 20 mg IVP DAILY [facility] Last Admin: 08/01/18 10:29 Dose: 20 mg Hydralazine HCl (Apresoline) 5 mg IVP Q6 PRN PRN Reason: Systolic Blood Pressure Hydrochlorothiazide (Microzide) 12.5 mg PO DAILY [facility] Last Admin: 08/01/18 10:30 Dose: 12.5 mg Dextrose (Dextrose 5% In Water 1000 Ml) 1,000 mls @ 0 mls/hr IV .Q0M PRN; Protocol PRN Reason: Hypoglycemia Protocol Ibuprofen (Motrin Tab) 600 mg PO Q6H PRN PRN Reason: Pain, moderate (4-7) Last Admin: 07/30/18 23:40 Dose: 600 mg Insulin Human Lispro (Humalog Low) 0 units SC A[facility]S [facility]; Protocol Last Admin: 08/01/18 11:56 Dose: 1 unit Lidocaine (Lidoderm) 1 ea TD DAILY [facility] Last Admin: 08/01/18 10:29 Dose: 1 ea Ondansetron HCl (Zofran Inj) 4 mg IVP Q6 PRN PRN Reason: Nausea/Vomiting Last Admin: 07/31/18 21:48 Dose: 4 mg Petrolatum (Desitin Maximum Strength Topical 40% Oint) 0 gm TOP Q4H PRN PRN Reason: Rash Simethicone (Mylicon Chew Tab) 80 mg PO PCHS PRN PRN Reason: GI distress Last Admin: 07/30/18 22:07 Dose: 80 mg Tramadol HCl (Ultram) 50 mg PO TID PRN PRN Reason: Pain, severe (8-10) Last Admin: 08/01/18 14:49 Dose: 50 mg - Labs Labs: 08/01/18 06:40 08/01/18 06:40 PT 12.4 SECONDS (9.4-12.5) 07/24/18 13:20 INR 1.10 07/24/18 13:20 APTT 31.8 Seconds (26.9-38.3) 07/24/18 13:20 - Constitutional Appears: Well, No Acute Distress - Head Exam Head Exam: ATRAUMATIC, NORMAL INSPECTION, NORMOCEPHALIC - Eye Exam Eye Exam: EOMI, Normal appearance, PERRL Pupil Exam: NORMAL ACCOMODATION, PERRL - ENT Exam ENT Exam: Mucous Membranes Moist, Normal Exam - Neck Exam Neck Exam: Full ROM, Normal Inspection. absent: Lymphadenopathy - Respiratory Exam Respiratory Exam: Clear to Ausculation Bilateral, NORMAL BREATHING PATTERN - Cardiovascular Exam Cardiovascular Exam: +S1, +S2 - GI/Abdominal Exam GI & Abdominal Exam: Normal Bowel Sounds. absent: Rigid Additional comments: midabdominal incision, clean, krystina intact, no erythema, no drainage. open left abdominal wound 2x2 packed with iodoform, no drainage - Extremities Exam Extremities Exam: Full ROM, Normal Capillary Refill, Normal Inspection. absent: Joint Swelling, Pedal Edema - Neurological Exam Neurological Exam: Alert, Awake - Psychiatric Exam Psychiatric exam: Normal Affect, Normal Mood - Skin Skin Exam: Dry, Intact, Normal Color, Warm Assessment and Plan - Assessment and Plan (Free Text) Assessment: 58 y/o female with PMHx of HTN, DM and diverticulitis s/p Leary's procedure on 04/2018 s/p colostomy reversal POD 7 Plan: -patient is hemodynamically stable, afebrile ambulating OOB, tolerating her diet -d/c home with augmentin BID x7 days -percocet prn for pain on d/c -f/u outpatient with Dr Joyce -further recs per surgical attending Dr Isiah Dupree, DO
--- NOTE | 2018-08-01 23:45 | CARD ---
APPROVED REPORT Date of service: 08/01/2018 EKG Measurement Heart [id number] <Conclusion> Normal sinus rhythm Nonspecific T wave abnormality Abnormal ECG
[2018-08-02] MEDS: Insulin Lispro (humaLOG) LOW Coverage SC SCH ×2 (08:50→12:13)
--- NOTE | 2018-08-02 09:13 | CP.PCM.PN ---
Subjective - Date & Time of Evaluation Date of Evaluation: 08/02/18 Time of Evaluation: 07:05 - Subjective Subjective: Surgery Progress note. Dr. Joyce Pt sen and examined at bedside. Reports an episode of vomiting yesterday. Still reports having flatus. No BM yesterday or this morning. No F/C. States that she feels well and would like to be discharged home. She was taught how to do wound dressing packing changes this morning and understands well and is willing to continue doing herself upon discharge. Objective - Vital Signs/Intake and Output Vital Signs (last 24 hours): Temp Pulse Resp BP Pulse Ox 98.3 F 91 H 18 142/75 96 08/02/18 08:09 08/02/18 08:09 08/02/18 08:09 08/02/18 08:09 08/02/18 08:09 Intake and Output: 08/02/18 08/02/18 06:59 18:59 Intake Total 20 Output Total 100 Balance -80 - Medications Medications: Current Medications Acetaminophen (Tylenol 325mg Tab) 650 mg PO Q8H PRN PRN Reason: Pain, moderate (4-7) Amlodipine Besylate (Norvasc) 5 mg PO DAILY [facility] Last Admin: 07/29/18 09:34 Dose: 5 mg Aspirin (Ecotrin) 81 mg PO DAILY [facility] Last Admin: 08/01/18 10:30 Dose: 81 mg Dextrose (Dextrose 50% Inj) 0 ml IV STAT PRN; Protocol PRN Reason: Hypoglycemia Protocol Docusate Sodium (Colace) 100 mg PO BID [facility] Last Admin: 08/01/18 18:10 Dose: 100 mg Enoxaparin Sodium (Lovenox) 40 mg SC DAILY [facility]; Protocol Last Admin: 08/01/18 10:28 Dose: 40 mg Famotidine (Pepcid) 20 mg IVP DAILY [facility] Last Admin: 08/01/18 10:29 Dose: 20 mg Hydralazine HCl (Apresoline) 5 mg IVP Q6 PRN PRN Reason: Systolic Blood Pressure Hydrochlorothiazide (Microzide) 12.5 mg PO DAILY [facility] Last Admin: 08/01/18 10:30 Dose: 12.5 mg Dextrose (Dextrose 5% In Water 1000 Ml) 1,000 mls @ 0 mls/hr IV .Q0M PRN; Protocol PRN Reason: Hypoglycemia Protocol Ibuprofen (Motrin Tab) 600 mg PO Q6H PRN PRN Reason: Pain, moderate (4-7) Last Admin: 08/01/18 18:17 Dose: 600 mg Insulin Human Lispro (Humalog Low) 0 units SC ACHS [facility]; Protocol Last Admin: 08/02/18 08:50 Dose: Not Given Lidocaine (Lidoderm) 1 ea TD DAILY [facility] Last Admin: 08/01/18 10:29 Dose: 1 ea Ondansetron HCl (Zofran Inj) 4 mg IVP Q6 PRN PRN Reason: Nausea/Vomiting Last Admin: 07/31/18 21:48 Dose: 4 mg Petrolatum (Desitin Maximum Strength Topical 40% Oint) 0 gm TOP Q4H PRN PRN Reason: Rash Simethicone (Mylicon Chew Tab) 80 mg PO PCHS PRN PRN Reason: GI distress Last Admin: 07/30/18 22:07 Dose: 80 mg Tramadol HCl (Ultram) 50 mg PO TID PRN PRN Reason: Pain, severe (8-10) Last Admin: 08/01/18 14:49 Dose: 50 mg - Labs Labs: 08/01/18 06:40 08/01/18 06:40 PT 12.4 SECONDS (9.4-12.5) 07/24/18 13:20 INR 1.10 07/24/18 13:20 APTT 31.8 Seconds (26.9-38.3) 07/24/18 13:20 - Constitutional Appears: Non-toxic, No Acute Distress - Head Exam Head Exam: ATRAUMATIC, NORMAL INSPECTION, NORMOCEPHALIC - Eye Exam Eye Exam: EOMI, Normal appearance. absent: Scleral icterus - ENT Exam ENT Exam: Mucous Membranes Moist - Respiratory Exam Respiratory Exam: NORMAL BREATHING PATTERN. absent: Accessory Muscle Use, Respiratory Distress - Cardiovascular Exam Cardiovascular Exam: absent: JVD - GI/Abdominal Exam GI & Abdominal Exam: Soft. absent: Distended, Guarding, Rebound Additional comments: Midline incision clean dry and intact. Left prior ostomy site dressing changed and packed with iodoform - Extremities Exam Extremities Exam: Normal Inspection. absent: Calf Tenderness - Neurological Exam Neurological Exam: Alert, Awake, Oriented x3 - Psychiatric Exam Psychiatric exam: Normal Affect, Normal Mood - Skin Skin Exam: Dry, Intact, Normal Color, Warm Assessment and Plan - Assessment and Plan (Free Text) Assessment: 58yo F w PMHx of DM, HTN and recurrent diverticulitis, s/p Amaury's on 04/2018 and Colostomy reversal POD 8 Plan: - Cleared for discharge once tolerating diet, ambulating - Follow up with Dr. Joyce in office in 7-10 days. Call for appointment - Continue home dressing changes. Iodoform packing and dry gauze to prior Colostomy site Patient training provided this morning. Patient understands and agrees to do dressing changes until she follows up with Dr. Joyce - Cameron Out of bed to chair and ambulate Further recs as per Dr. Isiah Pruett PGY2 surgery
[2018-08-02] MEDS: Lidocaine 5% Patch TD SCH (10:13)
[2018-08-02] MEDS: Enoxaparin 40 mg Syringe SC SCH (10:13)
[2018-08-02] MEDS: 0.125% Bupivacaine in 0.9% NS 750mL On Q Dual pump IJ SCH (12:36)
--- NOTE | 2018-08-02 16:26 | CP.PCM.DIS ---
<StoneNato hung - Last Filed: 08/02/18 16:28> Provider - Provider Date of Admission: 07/24/18 12:14 Attending physician: Chrystal Fox MD Consults: 07/24/18 10:05 Physician Consult Stat Comment: Consulting Provider: Sean Joyce Consulting Physician: Sean Joyce Reason for Consult: pain/burning at ostomy site 07/31/18 23:57 Nursing Referral for Wound Care Routine Comment: Physician Instructions: Reason For Exam: PROTOCOL 08/02/18 00:22 Nursing Referral for Wound Care Routine Comment: Physician Instructions: Reason For Exam: POST-OP INCISION Time Spent in preparation of Discharge (in minutes): 40 Diagnosis - Discharge Diagnosis (1) Status post abdominal surgery, follow-up exam Status: Acute (2) Abdominal pain Status: Resolved (3) History of colostomy reversal Status: Resolved Hospital Course - Lab Results Lab Results: Most Recent Lab Values WBC 9.4 10^3/uL (4.5-11.0) D 08/01/18 06:40 RBC 4.18 10^6/uL (3.5-6.1) 08/01/18 06:40 Hgb 10.2 g/dL (12.0-16.0) L 08/01/18 06:40 Hct 32.9 % (36.0-48.0) L 08/01/18 06:40 MCV 78.7 fl (80.0-105.0) L 08/01/18 06:40 MCH 24.4 pg (25.0-35.0) L 08/01/18 06:40 MCHC 31.0 g/dl (31.0-37.0) 08/01/18 06:40 RDW 15.6 % (11.5-14.5) H 08/01/18 06:40 Plt Count 391 10^3/uL (120.0-450.0) 08/01/18 06:40 MPV 9.1 fl (7.0-11.0) 08/01/18 06:40 Neut % (Auto) 74.1 % (50.0-68.0) H 08/01/18 06:40 Lymph % (Auto) 18.9 % (22.0-35.0) L 08/01/18 06:40 [place] % (Auto) 6.2 % (1.0-6.0) H 08/01/18 06:40 Eos % (Auto) 0.7 % (1.5-5.0) L 08/01/18 06:40 Baso % (Auto) 0.1 % (0.0-3.0) 08/01/18 06:40 Lymph # (Auto) 1.8 (1.2-3.4) 08/01/18 06:40 [place] # (Auto) 0.6 (0.1-0.6) 08/01/18 06:40 Eos # (Auto) 0.1 (0.0-0.7) 08/01/18 06:40 Baso # (Auto) 0.01 K/mm3 (0.0-2.0) 08/01/18 06:40 Absolute Neuts (auto) 6.95 (1.4-6.5) H 08/01/18 06:40 Retic Count 1.94 % (0.5-1.5) H 07/26/18 06:00 PT 12.4 SECONDS (9.4-12.5) 07/24/18 13:20 INR 1.10 07/24/18 13:20 APTT 31.8 Seconds (26.9-38.3) 07/24/18 13:20 Sodium 135 mmol/L (132-148) 08/01/18 06:40 Potassium 4.1 mmol/L (3.6-5.0) 08/01/18 06:40 Chloride 100 mmol/L (98-107) 08/01/18 06:40 Carbon Dioxide 27 mmol/L (21-33) 08/01/18 06:40 Anion Gap 13 (10-20) 08/01/18 06:40 BUN 12 mg/dL (7-21) 08/01/18 06:40 Creatinine 0.6 mg/dl (0.7-1.2) L 08/01/18 06:40 Est GFR ( Amer) > 60 08/01/18 06:40 Est GFR (Non-Af Amer) > 60 08/01/18 06:40 POC Glucose (mg/dL) 149 mg/dL (65-110) H 08/02/18 16:13 Random Glucose 160 mg/dL (70-110) H 08/01/18 06:40 Calcium 9.5 mg/dL (8.4-10.5) 08/01/18 06:40 Phosphorus 3.4 mg/dL (2.5-4.5) 07/29/18 06:00 Magnesium 1.7 mg/dL (1.7-2.2) 07/29/18 06:00 Iron 11 ug/dL (45-180) L 07/26/18 06:00 TIBC 238 ug/dL (265-497) L 07/26/18 06:00 % Saturation 5 % (20-55) L 07/26/18 06:00 Transferrin 196.28 mg/dL (206-381) L 07/26/18 06:00 Ferritin 55.5 ng/mL 07/26/18 06:00 Total Bilirubin 0.6 mg/dL (0.2-1.3) 08/01/18 06:40 AST 27 U/L (14-36) 08/01/18 06:40 ALT 12 U/L (7-56) 08/01/18 06:40 Alkaline Phosphatase 127 U/L (38-126) H D 08/01/18 06:40 Total Protein 7.9 g/dL (5.8-8.3) 08/01/18 06:40 Albumin 4.0 g/dL (3.0-4.8) 08/01/18 06:40 Globulin 3.9 gm/dL 08/01/18 06:40 Albumin/Globulin Ratio 1.0 (1.1-1.8) L 08/01/18 06:40 Blood Type A POSITIVE 07/25/18 06:00 Antibody Screen Negative 07/25/18 06:00 BBK History Checked Patient has bt 07/25/18 06:00 - Hospital Course Hospital Course: Nato Stone DO, PGY-1 Hospitalist Discharge Summary for Dr. Fox Ms. Sales is a pleasant 58 year old female with PMH of HTN, DM2, and diverticulitis (s/p Amaury procedure 04/2018) who presented for persistent pain and discomfort at colostomy site. At the time, she rated the pain as 9/10 and described it as a sharp, burning type pain that did not radiate. She was evaluated by surgery and was taken to OR the next day for colostomy reversal. She is now s/p colostomy reversal with removal of adhesions and appendectomy POD 8. While in the hospital, Ms. Sales's post-op course was complicated by persistent nausea/vomiting, difficult to control pain, and post-op ileus. She was NPO for POD 1 and remained on a clear liquid diet until around POD 4. She continued to have pain and difficulty ambulating despite working with PT. She continued to require tramadol for pain. She received one dose of morphine but was somnolent following the dose, prompting concern from nursing staff. She woke up after receiving narcan. Her pain was then controlled with ibuprofen alone and it has improved since. After advancing her diet on around POD 5, she began to have nausea/vomiting which required zofran and reglan. She was changed back to clear liquid diet and then advanced again on POD 7. Ms. Sales also had post-op ileus which was confirmed by abdominal xray. She was treated with bowel regimen of milk of magnesia, colace, and dulcolax with subsequent resolution of the post-op ileus. Prior to discharge today, she reports feeling better and has been tolerating a light diet well without nausea/vomiting. She has been working with PT and is now able to ambulate to the bathroom without difficulty. PT cleared her for discharge home. She was instructed to f/u with Dr. Joyce within 1 week. She was instructed on dressing changes and other wound care per the surgery team. She will also follow up [place] [facility] [place] [facility] [place]. Discharge plan was discussed in detail with patient. All questions were answered. Patient seen, examined, and discharge plan discussed with my attending Dr. Ruddy Stone D.O. IM Resident PGY-1 Discharge Exam - Head Exam Head Exam: ATRAUMATIC, NORMAL INSPECTION, NORMOCEPHALIC - Eye Exam Eye Exam: EOMI, Normal appearance, PERRL - ENT Exam ENT Exam: Mucous Membranes Moist - Neck Exam Neck exam: Full Rom, Normal Inspection - Respiratory Exam Respiratory Exam: Clear to PA & Lateral, NORMAL BREATHING PATTERN, UNREMARKABLE. absent: Rales, Rhonchi, Wheezes - Cardiovascular Exam Cardiovascular Exam: REGULAR RHYTHM, RRR, +S1, +S2. absent: Diastolic murmur, Gallop, Rubs, Systolic Murmur - GI/Abdominal Exam GI & Abdominal Exam: Normal Bowel Sounds, Soft, Tenderness (tenderness to palpation RLQ) Additional comments: mid-line abdominal surgical scar clean, dry, intact with krystina - Extremities Exam Extremities exam: full ROM, normal inspection - Back Exam Back exam: NORMAL INSPECTION - Neurological Exam Neurological exam: Alert, Oriented x3 - Psychiatric Exam Psychiatric exam: Normal Affect, Normal Mood - Skin Skin Exam: Dry, Intact, Warm Discharge Plan - Discharge Medications Prescriptions: RX: amLODIPine [Norvasc] 5 mg PO DAILY #14 tab Amoxicillin/Clavulanate [Augmentin 875 MG-125 MG] 1 tab PO BID 10 Days #20 tab RX: Aspirin [Adult Aspirin] 81 mg PO DAILY #14 tablet.dr RX: Docusate [Colace] 100 mg PO BID #28 cap RX: Ergocalciferol (Vitamin D2) [Vitamin D2] 50,000 units PO QD7 #2 capsule Ferrous Sulfate [Feosol] 324 mg PO TID #42 ect RX: Hydrochlorothiazide [Microzide] 12.5 mg PO DAILY #14 capsule RX: Ibuprofen [Motrin Tab] 600 mg PO Q6H PRN #40 tab PRN Reason: Pain, Moderate (4-7) RX: metFORMIN [glucOPHAGE] 1,000 mg PO BID #28 tab - Follow Up Plan Condition: STABLE Disposition: HOME/ ROUTINE Instructions: Nausea and Vomiting, Adult, Stomach Ache and Stomach Upset, Acute Abdominal Pain (DC), Acute Abdominal Pain (GEN) Additional Instructions: Please follow up with Dr. Joyce, your surgeon, within 1 week of discharge. His contact information has been provided in your paperwork. Please continue to eat only soft foods and liquids until you follow up with Dr. Joyce. Please continue to change the dressing on your surgical site as instructed. Please follow up with the [facility] [place] [facility] [place] 2 weeks of discharge. Please discuss any new medications you have been started on. The [facility] is downstairs in this building. Please call them at [phone] to confirm your appointment time. We have given four new prescriptions 1. Ibuprofen which you may take every 6 hours as needed for pain 2. Iron (feosol). Please take this new supplement 3 times daily as your iron levels are low. 3. Colace. Please take this twice a day to help you avoid constipation. 4. Augmentin. Please take this antibiotic twice a day for 10 days. Please continue to take your other medications as directed. If any of your symptoms return or worsen, please return to nearest ED. Referrals: Sean Joyce MD [Staff Provider] - <Chrystal Fox - Last Filed: 08/03/18 12:35> Provider - Provider Date of Admission: 07/24/18 12:14 Attending physician: Chrystal Fox MD Consults: 07/24/18 10:05 Physician Consult Stat Comment: Consulting Provider: Sean Joyce Consulting Physician: Sean Joyce Reason for Consult: pain/burning at ostomy site 07/31/18 23:57 Nursing Referral for Wound Care Routine Comment: Physician Instructions: Reason For Exam: PROTOCOL 08/02/18 00:22 Nursing Referral for Wound Care Routine Comment: Physician Instructions: Reason For Exam: POST-OP INCISION Hospital Course - Lab Results Lab Results: Most Recent Lab Values WBC 9.4 10^3/uL (4.5-11.0) D 08/01/18 06:40 RBC 4.18 10^6/uL (3.5-6.1) 08/01/18 06:40 Hgb 10.2 g/dL (12.0-16.0) L 08/01/18 06:40 Hct 32.9 % (36.0-48.0) L 08/01/18 06:40 MCV 78.7 fl (80.0-105.0) L 08/01/18 06:40 MCH 24.4 pg (25.0-35.0) L 08/01/18 06:40 MCHC 31.0 g/dl (31.0-37.0) 08/01/18 06:40 RDW 15.6 % (11.5-14.5) H 08/01/18 06:40 Plt Count 391 10^3/uL (120.0-450.0) 08/01/18 06:40 MPV 9.1 fl (7.0-11.0) 08/01/18 06:40 Neut % (Auto) 74.1 % (50.0-68.0) H 08/01/18 06:40 Lymph % (Auto) 18.9 % (22.0-35.0) L 08/01/18 06:40 [place] % (Auto) 6.2 % (1.0-6.0) H 08/01/18 06:40 Eos % (Auto) 0.7 % (1.5-5.0) L 08/01/18 06:40 Baso % (Auto) 0.1 % (0.0-3.0) 08/01/18 06:40 Lymph # (Auto) 1.8 (1.2-3.4) 08/01/18 06:40 [place] # (Auto) 0.6 (0.1-0.6) 08/01/18 06:40 Eos # (Auto) 0.1 (0.0-0.7) 08/01/18 06:40 Baso # (Auto) 0.01 K/mm3 (0.0-2.0) 08/01/18 06:40 Absolute Neuts (auto) 6.95 (1.4-6.5) H 08/01/18 06:40 Retic Count 1.94 % (0.5-1.5) H 07/26/18 06:00 PT 12.4 SECONDS (9.4-12.5) 07/24/18 13:20 INR 1.10 07/24/18 13:20 APTT 31.8 Seconds (26.9-38.3) 07/24/18 13:20 Sodium 135 mmol/L (132-148) 08/01/18 06:40 Potassium 4.1 mmol/L (3.6-5.0) 08/01/18 06:40 Chloride 100 mmol/L (98-107) 08/01/18 06:40 Carbon Dioxide 27 mmol/L (21-33) 08/01/18 06:40 Anion Gap 13 (10-20) 08/01/18 06:40 BUN 12 mg/dL (7-21) 08/01/18 06:40 Creatinine 0.6 mg/dl (0.7-1.2) L 08/01/18 06:40 Est GFR ( Amer) > 60 08/01/18 06:40 Est GFR (Non-Af Amer) > 60 08/01/18 06:40 POC Glucose (mg/dL) 149 mg/dL (65-110) H 08/02/18 16:13 Random Glucose 160 mg/dL (70-110) H 08/01/18 06:40 Calcium 9.5 mg/dL (8.4-10.5) 08/01/18 06:40 Phosphorus 3.4 mg/dL (2.5-4.5) 07/29/18 06:00 Magnesium 1.7 mg/dL (1.7-2.2) 07/29/18 06:00 Iron 11 ug/dL (45-180) L 07/26/18 06:00 TIBC 238 ug/dL (265-497) L 07/26/18 06:00 % Saturation 5 % (20-55) L 07/26/18 06:00 Transferrin 196.28 mg/dL (206-381) L 07/26/18 06:00 Ferritin 55.5 ng/mL 07/26/18 06:00 Total Bilirubin 0.6 mg/dL (0.2-1.3) 08/01/18 06:40 AST 27 U/L (14-36) 08/01/18 06:40 ALT 12 U/L (7-56) 08/01/18 06:40 Alkaline Phosphatase 127 U/L (38-126) H D 08/01/18 06:40 Total Protein 7.9 g/dL (5.8-8.3) 08/01/18 06:40 Albumin 4.0 g/dL (3.0-4.8) 08/01/18 06:40 Globulin 3.9 gm/dL 08/01/18 06:40 Albumin/Globulin Ratio 1.0 (1.1-1.8) L 08/01/18 06:40 Blood Type A POSITIVE 07/25/18 06:00 Antibody Screen Negative 07/25/18 06:00 BBK History Checked Patient has bt 07/25/18 06:00 Attending/Attestation - Attestation I have personally seen and examined this patient.: Yes I have fully participated in the care of the patient.: Yes I have reviewed all pertinent clinical information, including history, physical exam and plan: Yes Notes (Text): 08/03/18 12:26 Medical record note made by the resident after discussion with my direction and input after the patient was personally seen and examined by me. I have reviewed the chart and agree that the record accurately reflects by personal performance of the history, physical exam, data review, and medical decision-making, in the course for the patient. I have also personally directed the plan of care. 58 years old female with PMHx of HTN, DM and diverticulitis ,SP s/p Leary's procedure on 04/2018 was admitted for Colostomy reversal. She s/p colostomy reversal POD 8, was complicated by illeus. Patient abdominal pain is better, She is tolerating diet Patient is ambulatory the time of discharge. She will follow up with Surgery and [facility]. Management plan was discussed in detail with patient. Education was provided.
[2018-08-02 16:50] VITALS: BP 118/77; PULSE 98; RESP 19; TEMP 98.5; O2SAT 97
== END 2018-08-02 17:52 | disposition home or self-care (01) | DRG 221 ==
LOC: ED 08:00 → ERH 12:14 → 3RNO 13:37
PROVIDERS: ADMIT Internal Medicine; ATTEND Internal Medicine
PROC: 0DBL0ZZ Excision of Transverse Colon, Open Approach (ICD-10-PCS; principal; 2018-07-25 08:30)
PROC: 0DNL0ZZ Release Transverse Colon, Open Approach (ICD-10-PCS; 2018-07-25 08:30)
PROC: 0DTJ0ZZ Resection of Appendix, Open Approach (ICD-10-PCS; 2018-07-25 08:30)
DX: Z43.3 Encounter for attention to colostomy (principal); K56.7 Ileus, unspecified; K57.92 Diverticulitis of intestine, part unspecified, without perforation or abscess without bleeding; K91.89 Other postprocedural complications and disorders of digestive system; K66.0 Peritoneal adhesions (postprocedural) (postinfection); I10 Essential (primary) hypertension; E11.9 Type 2 diabetes mellitus without complications; D50.9 Iron deficiency anemia, unspecified; D72.829 Elevated white blood cell count, unspecified; E83.42 Hypomagnesemia; Z79.82 Long term (current) use of aspirin; Z82.49 Family history of ischemic heart disease and other diseases of the circulatory system; Z83.3 Family history of diabetes mellitus; Z90.49 Acquired absence of other specified parts of digestive tract; Z90.710 Acquired absence of both cervix and uterus; Z98.0 Intestinal bypass and anastomosis status; Z87.892 Personal history of anaphylaxis; Z91.012 Allergy to eggs